=== PATIENT | female | born 1935 | race Caucasian/White ===

== ENCOUNTER 2017-05-16 18:09 | Inpatient (IN) | payer OTHER ==
--- NOTE | 2017-05-16 18:16 | PDOC ---
Rapid Medical Evaluation Time Seen by Provider: 05/16/17 18:13 Medical Evaluation: Allergies Allergy/AdvReac Type Severity Reaction Status Date / Time Penicillins Allergy Verified 08/15/15 13:05 Apple juice Allergy Uncoded 08/15/15 13:05 05/16/17 18:13 I have performed a brief in-person evaluation of this patient. The patient presents with a chief complaint of: Sob w/ hypoxia last night. H/o COPD on oxygen (2 and 1/2 L) Pertinent physical exam findings:Well jorden in NAD w/ 87% on RA w/ yellow discharge to R eye w/ mild wheezing I have ordered the following:ekg/cxr/labs/duoneb The patient will proceed to the ED for further evaluation.
[2017-05-16 19:23] LABS: BASO % 0.9 % (0-2.0); EOS % 2.5 % (0-4.5); HEMATOCRIT 35.5 % (32.4-45.2); LYMPH % 18.2 % (8-40); MCH 20.2 pg (25.7-33.7); MCHC 30.9 g/dl (32.0-36.0); MEAN CELL VOLUME 65.4 fl (80-96); MEAN PLT VOLUME 8.7 fl (7.5-11.1); MONO % 9.2 % (3.8-10.2); NEUT % 69.2 % (42.8-82.8); PLATELET COUNT 310 K/MM3 (134-434); RBC 5.43 M/mm3 (3.60-5.2); RDW 18.3 % (11.6-15.6); WHITE BLOOD COUNT 6.2 K/mm3 (4.0-10.0)
[2017-05-16 19:42] LABS: ADD RBC MORPHOLOGY YES
[2017-05-16] MEDS ORDERED: FUROSEMIDE 100 MG/10 ML INJECTABLE VIAL IVPB ONE (20:22)
[2017-05-16 20:24] LABS: ANISOCYTOSIS 2+; MACROCYTOSIS 1+; TARGET CELLS 3+
[2017-05-16] MEDS ORDERED: FUROSEMIDE 40 MG/4 ML INJECTABLE VIAL ONE (20:25)
--- NOTE | 2017-05-16 20:40 | PDOC ---
History of Present Illness - History of Present Illness Initial Comments: 05/16/17 20:40 The patient is a 82 year old barbadian-speaking female, with a significant past medical history of CHF, COPD, on oxygen tank at home, cataracts who presents to the emergency department with SOB since yesterday. Patient states SOB is exacerbated upon conversing. Patient reports chronic COPD but is unaware on the cause. She denies h/o smoking. Patient reports associated nausea but denies vomiting. She also reports lower leg pain. She denies recent fevers, chills, headache or dizziness. She denies recent vomit , diarrhea or constipation. She denies recent dysuria, frequency, urgency or hematuria. She denies recent chest pain. Allergies: penicillins, apple juice Past surgical history: Cardiac stents. No h/o heart attack. Right knee replacement.Tonsillectomy. Social history: Nonsmoker. Denies EtOH use and recreational drug use. Primary Care Physician: Heena Seaman <Lizzie Bee - Last Filed: 05/16/17 20:40> <Kailey Newby - Last Filed: 05/16/17 23:02> - General Chief Complaint: Shortness of Breath Stated Complaint: S.O.B Time Seen by Provider: 05/16/17 18:13 Past History <Lizzie Bee - Last Filed: 05/16/17 20:40> - Past Medical History Anemia: No Asthma: No Cancer: No Cardiac Disorders: Yes (RI with stents) CVA: No COPD: Yes (COPD) CHF: No Dementia: No Diabetes: Yes GI Disorders: No Disorders: No HTN: Yes Hypercholesterolemia: No Liver Disease: No Seizures: Yes (?2014-LAST ONE) Thyroid Disease: No - Surgical History Cardiac Surgery: Yes (cardiac cath with stents) - Family Disease History Family Disease History: Diabetes: Mother - Immunization History Immunization Up to Date: Yes - Suicide/Smoking/Psychosocial Hx Smoking History: Never smoked Have you smoked in the past 12 months: No Information on smoking cessation initiated: No Hx Alcohol Use: No Drug/Substance Use Hx: No Substance Use Type: None Hx Substance Use Treatment: No <Kailey Newby - Last Filed: 05/16/17 23:02> - Past Medical History Allergies/Adverse Reactions: Allergies Allergy/AdvReac Type Severity Reaction Status Date / Time Penicillins Allergy Verified 05/16/17 18:19 Apple juice Allergy Uncoded 05/16/17 18:19 Home Medications: Ambulatory Orders Aspirin [Aspirin EC] 81 mg PO DAILY 11/09/13 Insulin Lispro [Humalog] 12 unit SQ TIDCM 03/02/14 Atorvastatin Ca [Lipitor] 40 mg PO HS #30 tablet 03/11/14 Clopidogrel Bisulfate [Plavix -] 75 mg PO DAILY #30 tablet 03/11/14 Metoprolol Succinate [Toprol XL -] 25 mg PO DAILY #30 tab.sr.24h 03/11/14 Pantoprazole Sodium [Protonix -] 20 mg PO DAILY #30 tablet.ec 03/11/14 Insulin (Levemir) [Levemir Flexpen -] 12 units SQ HS 05/16/17 Review of Systems - Review of Systems Comments:: 05/16/17 20:41 GENERAL/CONSTITUTIONAL: No fever or chills. No weakness. HEAD, EYES, EARS, NOSE AND THROAT: No change in vision. No ear pain or discharge. No sore throat. CARDIOVASCULAR: No chest pain. +shortness of breath. RESPIRATORY: No cough, wheezing, or hemoptysis. GASTROINTESTINAL: + nausea, no vomiting, diarrhea or constipation. GENITOURINARY: No dysuria, frequency, or change in urination. MUSCULOSKELETAL: + bilateral lower leg pain.No joint or muscle swelling or pain. No neck or back pain. SKIN: No rash NEUROLOGIC: No headache, vertigo, loss of consciousness, or change in strength/ sensation. ENDOCRINE: No increased thirst. No abnormal weight change. HEMATOLOGIC/LYMPHATIC: No anemia, easy bleeding, or history of blood clots. ALLERGIC/IMMUNOLOGIC: No hives or skin allergy. <Lizzie Bee - Last Filed: 05/16/17 20:40> *Physical Exam - Vital Signs Last Vital Signs Temp Pulse Resp BP Pulse Ox 98.3 F 69 22 165/72 98 05/16/17 18:16 05/16/17 20:31 05/16/17 20:31 05/16/17 20:31 05/16/17 20:34 - Physical Exam Comments: 05/16/17 20:41 GENERAL: Morbidly obese. Awake, alert, and fully oriented, in no acute distress HEAD: No signs of trauma EYES: PERRLA, EOMI, sclera anicteric, conjunctiva clear ENT: Auricles normal inspection, hearing grossly normal, nares patent, oropharynx clear without exudates. Moist mucosa NECK: Normal ROM, supple, no lymphadenopathy, JVD, or masses LUNGS: Bilateral pleural effusions on x-ray. Rales- left side greater than right. No wheezes, and no crackles HEART: Regular rate and rhythm, normal S1 and S2, no murmurs, rubs or gallops ABDOMEN: Soft, nontender, normoactive bowel sounds. No guarding, no rebound. No masses EXTREMITIES: Bilateral pitting edema. Lower leg tenderness to palpation. Normal range of motion. No clubbing or cyanosis. No cords, erythema. NEUROLOGICAL: Cranial nerves II through XII grossly intact. Normal speech, normal gait SKIN: Warm, Dry, normal turgor, no rashes or lesions noted. <Lizzie Bee - Last Filed: 05/16/17 20:40> - Vital Signs Last Vital Signs Temp Pulse Resp BP Pulse Ox 98.3 F 69 22 165/72 98 05/16/17 18:16 05/16/17 20:31 05/16/17 20:31 05/16/17 20:31 05/16/17 20:34 <Kailey Newby - Last Filed: 05/16/17 23:02> ED Treatment Course - LABORATORY CBC & Chemistry Diagram: 05/16/17 18:55 05/16/17 18:55 - ADDITIONAL ORDERS Additional order review: Laboratory Results 05/16/17 18:55 Sodium Cancelled Potassium Cancelled Chloride Cancelled Carbon Dioxide Cancelled Anion Gap Cancelled BUN Cancelled Creatinine Cancelled Creat Clearance w eGFR Cancelled Random Glucose Cancelled Calcium Cancelled Total Bilirubin Cancelled AST Cancelled ALT Cancelled Alkaline Phosphatase Cancelled Creatine Kinase Cancelled Troponin I Cancelled Total Protein Cancelled Albumin Cancelled 05/16/17 20:15 Influenza Types A,B Antigen (REESE) - Preliminary Nasopharyngeal Swab - Preliminary 05/16/17 18:55 RBC 5.43 H MCV 65.4 L MCHC 30.9 L RDW 18.3 H D MPV 8.7 Neutrophils % 69.2 Lymphocytes % 18.2 D Monocytes % 9.2 Eosinophils % 2.5 Basophils % 0.9 - Medications Given in the ED: ED Medications Discontinued Medications Generic Name Dose Route Start Last Admin Trade Name Freq PRN Reason Stop Dose Admin Furosemide 20 mg 05/16/17 20:22 05/16/17 20:31 Lasix Injection - IVPB 05/16/17 20:23 20 mg ONCE ONE Administration <Lizzie Bee - Last Filed: 05/16/17 20:40> - LABORATORY CBC & Chemistry Diagram: 05/16/17 18:55 05/16/17 20:45 - ADDITIONAL ORDERS Additional order review: Laboratory Results 05/16/17 18:55 Sodium Cancelled Potassium Cancelled Chloride Cancelled Carbon Dioxide Cancelled Anion Gap Cancelled BUN Cancelled Creatinine Cancelled Creat Clearance w eGFR Cancelled Random Glucose Cancelled Calcium Cancelled Total Bilirubin Cancelled AST Cancelled ALT Cancelled Alkaline Phosphatase Cancelled Creatine Kinase Cancelled Troponin I Cancelled Total Protein Cancelled Albumin Cancelled 05/16/17 18:55 RBC 5.43 H MCV 65.4 L MCHC 30.9 L RDW 18.3 H D MPV 8.7 Neutrophils % 69.2 Lymphocytes % 18.2 D Monocytes % 9.2 Eosinophils % 2.5 Basophils % 0.9 - Medications Given in the ED: ED Medications Discontinued Medications Generic Name Dose Route Start Last Admin Trade Name Freq PRN Reason Stop Dose Admin Furosemide 20 mg 05/16/17 20:22 05/16/17 20:31 Lasix Injection - IVPB 05/16/17 20:23 20 mg ONCE ONE Administration <Kailey Newby - Last Filed: 05/16/17 23:02> *DC/Admit/Observation/Transfer - Attestations Scribe Attestion: 05/16/17 20:41 Documentation prepared by Lizzie Bee, acting as medical services coordinator for Kailey Newby MD. <Lizzie Bee - Last Filed: 05/16/17 20:40> - Discharge Dispostion Admit: Yes <Kailey Newby - Last Filed: 05/16/17 23:02> Diagnosis at time of Disposition: Respiratory distress, CHF exacerbation, Shortness of breath, HTN (hypertension) - Discharge Dispostion Condition at time of disposition: Guarded
[2017-05-16 21:19] LABS: ANION GAP 0 (8-16); BILIRUBIN,TOTAL 1.6 mg/dL (0.2-1.0); BLOOD UREA NITROGEN 26 mg/dL (7-18); CALCIUM 8.1 mg/dL (8.5-10.1); CHLORIDE 97 mmol/L (98-107); CO2 38 mmol/L (21-32); CREATININE 1.1 mg/dL (0.55-1.02); GLUCOSE,RANDOM 225 mg/dL (74-106); POTASSIUM 5.3 mmol/L (3.5-5.1); SGOT/AST 14 U/L (15-37); SGPT/ALT 15 U/L (12-78); SODIUM 135 mmol/L (136-145); TOT PROT 8.1 g/dl (6.4-8.2)
[2017-05-16 21:21] LABS: ALK PHOS 81 U/L (45-117)
[2017-05-16] MEDS ORDERED: HEPARIN NA (PORCINE) 5,000 UNITS/ML 1ML VIAL SQ SCH (23:45)
[2017-05-16] MEDS ORDERED: HEPARIN NA (PORCINE) 5,000 UNITS/ML 1ML VIAL ONE (23:53)
--- NOTE | 2017-05-17 00:04 | HP ---
<Sreekanth Luciano - Last Filed: 05/17/17 00:51> CHIEF COMPLAINT: shortness of breath PCP: Dr. Mima Luu HISTORY OF PRESENT ILLNESS: Patient is an 82 year old female with a past medical history of DM, HTN, COPD exacerbation on home O2, CHF, and arthritis presents to the ED for shortness of breath for 2 days duration. Patient states that she has had exacerbations in the past where she wound up intubated. She was intubated a total of 3 times in the past. She normally uses 2.5L home O2 as needed, but for the last two days she has needed to use it consistently. She states that she is able to walk less than she normally does without getting short of breath, and she needs to prop herself up with 2 pillows in order to sleep. She denies ever having leg swelling in the past. 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 Denies chest pain, nausea, vomiting, diarrhea, headache, fevers, chills. ER course was notable for: (1) EKG: left axis deviation, RBBB, LVH, old inferior infarct, old anterior infarct (2) (-) flu swab (3) potassium 5.3, sodium 135 Recent Travel: unknown PAST MEDICAL HISTORY: COPD, CHF, arthritis, DM, HTN PAST SURGICAL HISTORY: unknown Social History: Smoking: never Alcohol: never Drugs: never Family History: Allergies Penicillins Allergy (Verified 05/16/17 18:19) Apple juice Allergy (Uncoded 05/16/17 18:19) HOME MEDICATIONS: Home Medications Medication Instructions Recorded Aspirin [Aspirin EC] 81 mg PO DAILY 11/09/13 Insulin Lispro [Humalog] 12 unit SQ TIDCM 03/02/14 Atorvastatin Ca [Lipitor] 40 mg PO HS #30 tablet 03/11/14 Clopidogrel Bisulfate [Plavix -] 75 mg PO DAILY #30 tablet 03/11/14 Metoprolol Succinate [Toprol XL -] 25 mg PO DAILY #30 tab.sr.24h 03/11/14 Pantoprazole Sodium [Protonix -] 20 mg PO DAILY #30 tablet.ec 03/11/14 Insulin (Levemir) [Levemir Flexpen 12 units SQ HS 05/16/17 -] REVIEW OF SYSTEMS CONSTITUTIONAL: Absent: fever, chills, diaphoresis, generalized weakness, malaise, loss of appetite, weight change HEENT: Absent: rhinorrhea, nasal congestion, throat pain, throat swelling, difficulty swallowing, mouth swelling, ear pain, eye pain, visual changes CARDIOVASCULAR: Absent: chest pain, syncope, palpitations, irregular heart rate, lightheadedness , peripheral edema RESPIRATORY: cough, shortness of breath, dyspnea with exertion, orthopnea, wheezing Absent: stridor, hemoptysis GASTROINTESTINAL: Absent: abdominal pain, abdominal distension, nausea, vomiting, diarrhea, constipation, melena, hematochezia GENITOURINARY: Absent: dysuria, frequency, urgency, hesitancy, hematuria, flank pain, genital pain MUSCULOSKELETAL: Absent: myalgia, arthralgia, joint swelling, back pain, neck pain SKIN: Absent: rash, itching, pallor HEMATOLOGIC/IMMUNOLOGIC: Absent: easy bleeding, easy bruising, lymphadenopathy, frequent infections ENDOCRINE: Absent: unexplained weight gain, unexplained weight loss, heat intolerance, cold intolerance NEUROLOGIC: Absent: headache, focal weakness or paresthesias, dizziness, unsteady gait, seizure, mental status changes, bladder or bowel incontinence PSYCHIATRIC: Absent: anxiety, depression, suicidal or homicidal ideation, hallucinations. PHYSICAL EXAMINATION Vital Signs - 24 hr 05/16/17 05/16/17 05/16/17 18:16 20:26 20:31 Temperature 98.3 F Pulse Rate 77 Pulse Rate [ 69 Apical] Respiratory 24 22 Rate Blood Pressure 153/68 Blood Pressure 165/72 [Left Arm] O2 Sat by Pulse 87 L 100 98 Oximetry (%) 05/16/17 05/16/17 05/16/17 20:34 22:22 23:26 Temperature Pulse Rate Pulse Rate [ 69 Apical] Respiratory 18 Rate Blood Pressure Blood Pressure 139/71 [Left Arm] O2 Sat by Pulse 98 100 100 Oximetry (%) GENERAL: Awake, alert, and fully oriented, in no acute distress, breathing on bipap HEAD: Normal with no signs of trauma. EYES: Pupils equal, round and reactive to light, extraocular movements intact, sclera anicteric, conjunctiva clear. No lid lag. EARS, NOSE, THROAT: Ears normal, nares patent, oropharynx clear without exudates. Moist mucous membranes. NECK: Normal range of motion, supple without lymphadenopathy, JVD, or masses. LUNGS: Breath sounds equal, bibasilar crackles heard bilaterally. No wheezes. No accessory muscle use. HEART: Regular rate and rhythm, normal S1 and S2, 3/6 systolic murmur noted on exam ABDOMEN: Obese, nontender, not distended, normoactive bowel sounds, no guarding , no rebound, no masses. No hepatomegaly or splenomegaly. MUSCULOSKELETAL: Normal range of motion at all joints. No bony deformities, mild tenderness to palpation of legs. No CVA tenderness. UPPER EXTREMITIES: 2+ pulses, warm, well-perfused. No cyanosis. No clubbing. No peripheral edema. LOWER EXTREMITIES: 2+ pulses, warm, well-perfused. No calf tenderness. 2+ pitting edema in bilateral extremities, peripheral pulses intact NEUROLOGICAL: Cranial nerves II-XII intact. Normal speech. Normal gait. PSYCHIATRIC: Cooperative. Good eye contact. Appropriate mood and affect. SKIN: Warm, dry, normal turgor, no rashes or lesions noted, normal capillary refill. Laboratory Results - last 24 hr 05/16/17 05/16/17 05/16/17 18:55 18:55 20:45 WBC 6.2 RBC 5.43 H Hgb 11.0 Hct 35.5 MCV 65.4 L MCH 20.2 L MCHC 30.9 L RDW 18.3 H D Plt Count 310 D MPV 8.7 Neutrophils % 69.2 Lymphocytes % 18.2 D Monocytes % 9.2 Eosinophils % 2.5 Basophils % 0.9 Hypochromia 2+ Polychromasia 1+ Basophilic Stippling 1+ Anisocytosis 2+ Microcytosis 2+ Macrocytosis 1+ Target Cells 3+ Sodium Cancelled 135 L Potassium Cancelled 5.3 H Chloride Cancelled 97 L Carbon Dioxide Cancelled 38 H Anion Gap Cancelled 0 L BUN Cancelled 26 H Creatinine Cancelled 1.1 H Creat Clearance w eGFR Cancelled 47.67 Random Glucose Cancelled 225 H Calcium Cancelled 8.1 L Total Bilirubin Cancelled 1.6 H D AST Cancelled 14 L ALT Cancelled 15 Alkaline Phosphatase Cancelled 81 Creatine Kinase Cancelled 86 Troponin I Cancelled 0.04 Total Protein Cancelled 8.1 Albumin Cancelled 3.0 L Current Medications Aspirin (Ecotrin -) 81 mg PO DAILY RYANN Atorvastatin Calcium (Lipitor -) 40 mg PO HS RYANN Clopidogrel Bisulfate (Plavix -) 75 mg PO DAILY RYANN Furosemide (Lasix Injection -) 40 mg IVPUSH BID@0600,1400 [facility] Heparin Sodium (Porcine) (Heparin -) 5,000 unit SQ TID [facility] Insulin Aspart (Novolog Vial Sliding Scale -) 0 vial SQ ACHS [facility] PRN Reason: Protocol Insulin Detemir (Levemir Vial) 12 units SQ HS [facility] Metoprolol Succinate (Toprol Xl -) 25 mg PO DAILY [facility] Pantoprazole Sodium (Protonix -) 20 mg PO DAILY [facility] ASSESSMENT/PLAN: 82 year old female with a past medical history of DM, HTN, arthritis is admitted to the hospital for the treatment of CHF exacerbation #CHF Exacerbation: likely due to clinical picture of crackles on exam, CXR results, b/l pitting edema, and hx of orthopnea/dyspnea on exertion, patient improved when evaluated by primary team -admit to telemetry -EKG similar to prior with NSR, LAD, RBBB -Order echocardiography -lasix 40 given in ED, continue lasix 40 BID starting in the AM -Bipap as needed -strict I's and O's -daily weights #Diabetes Mellitus: controlled -levemir 12 at night -insulin sliding scale coverage #Hypertension: not an acute issue -continue home metoprolol 25mg PO QD #Coronary artery disease with hx of Stents: not an acute issue -continue aspirin 81mg and clopidogrel 75 PO QD -Continue atorvostatin 40mg PO #FEN -No standing fluids, hold due to fluid overload -Replete lytes as necessary in AM -Sodium controlled, diabetic diet #Prophylaxis -heparin 5000 subq TID -protonix, will ask why she is on it #Disposition: Admit to telemetry for monitoring Full code Sreekanth Luciano, PGY1 Visit type - Emergency Visit Emergency Visit: Yes ED Registration Date: 05/16/17 Care time: The patient presented to the Emergency Department on the above date and was hospitalized for further evaluation of their emergent condition. - New Patient This patient is new to me today: Yes Date on this admission: 05/17/17 - Critical Care Critical Care patient: No <Dung Sigala - Last Filed: 05/17/17 04:59> CHIEF COMPLAINT: PCP: HISTORY OF PRESENT ILLNESS: ER course was notable for: (1) (2) (3) Recent Travel: PAST MEDICAL HISTORY: PAST SURGICAL HISTORY: Social History: Smoking: Alcohol: Drugs: Family History: Allergies Penicillins Allergy (Verified 05/16/17 18:19) Apple juice Allergy (Uncoded 05/16/17 18:19) HOME MEDICATIONS: Home Medications Medication Instructions Recorded RX: Aspirin [Aspirin EC] 81 mg PO DAILY 11/09/13 RX: Insulin Lispro [Humalog] 12 unit SQ TIDCM 03/02/14 RX: Atorvastatin Ca [Lipitor] 40 mg PO HS #30 tablet 03/11/14 RX: Clopidogrel Bisulfate [Plavix 75 mg PO DAILY #30 tablet 03/11/14 -] RX: Metoprolol Succinate [Toprol 25 mg PO DAILY #30 tab.sr.24h 03/11/14 XL -] RX: Pantoprazole Sodium [Protonix 20 mg PO DAILY #30 tablet.ec 03/11/14 -] RX: Insulin (Levemir) [Levemir 12 units SQ HS 05/16/17 Flexpen -] REVIEW OF SYSTEMS CONSTITUTIONAL: Absent: fever, chills, diaphoresis, generalized weakness, malaise, loss of appetite, weight change HEENT: Absent: rhinorrhea, nasal congestion, throat pain, throat swelling, difficulty swallowing, mouth swelling, ear pain, eye pain, visual changes CARDIOVASCULAR: Absent: chest pain, syncope, palpitations, irregular heart rate, lightheadedness , peripheral edema RESPIRATORY: Absent: cough, shortness of breath, dyspnea with exertion, orthopnea, wheezing, stridor, hemoptysis GASTROINTESTINAL: Absent: abdominal pain, abdominal distension, nausea, vomiting, diarrhea, constipation, melena, hematochezia GENITOURINARY: Absent: dysuria, frequency, urgency, hesitancy, hematuria, flank pain, genital pain MUSCULOSKELETAL: Absent: myalgia, arthralgia, joint swelling, back pain, neck pain SKIN: Absent: rash, itching, pallor HEMATOLOGIC/IMMUNOLOGIC: Absent: easy bleeding, easy bruising, lymphadenopathy, frequent infections ENDOCRINE: Absent: unexplained weight gain, unexplained weight loss, heat intolerance, cold intolerance NEUROLOGIC: Absent: headache, focal weakness or paresthesias, dizziness, unsteady gait, seizure, mental status changes, bladder or bowel incontinence PSYCHIATRIC: Absent: anxiety, depression, suicidal or homicidal ideation, hallucinations. PHYSICAL EXAMINATION Vital Signs - 24 hr 05/16/17 05/16/17 05/16/17 18:16 20:26 20:31 Temperature 98.3 F Pulse Rate 77 Pulse Rate [ 69 Apical] Respiratory 24 22 Rate Blood Pressure 153/68 Blood Pressure 165/72 [Left Arm] O2 Sat by Pulse 87 L 100 98 Oximetry (%) 05/16/17 05/16/17 05/16/17 20:34 22:22 23:26 Temperature Pulse Rate Pulse Rate [ 69 Apical] Respiratory 18 Rate Blood Pressure Blood Pressure 139/71 [Left Arm] O2 Sat by Pulse 98 100 100 Oximetry (%) 05/17/17 05/17/17 05/17/17 02:26 03:37 04:02 Temperature Pulse Rate Pulse Rate [ 68 Apical] Respiratory 14 Rate Blood Pressure Blood Pressure 134/60 [Left Arm] O2 Sat by Pulse 98 96 96 Oximetry (%) GENERAL: Awake, alert, and fully oriented, in no acute distress. HEAD: Normal with no signs of trauma. EYES: Pupils equal, round and reactive to light, extraocular movements intact, sclera anicteric, conjunctiva clear. No lid lag. EARS, NOSE, THROAT: Ears normal, nares patent, oropharynx clear without exudates. Moist mucous membranes. NECK: Normal range of motion, supple without lymphadenopathy, JVD, or masses. LUNGS: Breath sounds equal, clear to auscultation bilaterally. No wheezes, and no crackles. No accessory muscle use. HEART: Regular rate and rhythm, normal S1 and S2 without murmur, rub or gallop. ABDOMEN: Soft, nontender, not distended, normoactive bowel sounds, no guarding, no rebound, no masses. No hepatomegaly or splenomegaly. MUSCULOSKELETAL: Normal range of motion at all joints. No bony deformities or tenderness. No CVA tenderness. UPPER EXTREMITIES: 2+ pulses, warm, well-perfused. No cyanosis. No clubbing. No peripheral edema. LOWER EXTREMITIES: 2+ pulses, warm, well-perfused. No calf tenderness. No peripheral edema. NEUROLOGICAL: Cranial nerves II-XII intact. Normal speech. Normal gait. PSYCHIATRIC: Cooperative. Good eye contact. Appropriate mood and affect. SKIN: Warm, dry, normal turgor, no rashes or lesions noted, normal capillary refill. Laboratory Results - last 24 hr 05/16/17 05/16/17 05/16/17 18:55 18:55 20:45 WBC 6.2 RBC 5.43 H Hgb 11.0 Hct 35.5 MCV 65.4 L MCH 20.2 L MCHC 30.9 L RDW 18.3 H D Plt Count 310 D MPV 8.7 Neutrophils % 69.2 Lymphocytes % 18.2 D Monocytes % 9.2 Eosinophils % 2.5 Basophils % 0.9 Hypochromia 2+ Polychromasia 1+ Basophilic Stippling 1+ Anisocytosis 2+ Microcytosis 2+ Macrocytosis 1+ Target Cells 3+ Sodium Cancelled 135 L Potassium Cancelled 5.3 H Chloride Cancelled 97 L Carbon Dioxide Cancelled 38 H Anion Gap Cancelled 0 L BUN Cancelled 26 H Creatinine Cancelled 1.1 H Creat Clearance w eGFR Cancelled 47.67 Random Glucose Cancelled 225 H Calcium Cancelled 8.1 L Total Bilirubin Cancelled 1.6 H D AST Cancelled 14 L ALT Cancelled 15 Alkaline Phosphatase Cancelled 81 Creatine Kinase Cancelled 86 Troponin I Cancelled 0.04 Total Protein Cancelled 8.1 Albumin Cancelled 3.0 L ASSESSMENT/PLAN: COPD exacerbation - Albuterol nebulize q6hrs prn - prednisone 40mg PO - ipratropium bromide nebulization q6hrs prn - if the patient is having fever we can initiate antibiotcs
--- NOTE | 2017-05-17 04:54 | PN ---
Teaching Attending Note Name of Resident: Sreekanth Luciano ATTENDING PHYSICIAN STATEMENT I saw and evaluated the patient. I reviewed the resident's note and discussed the case with the resident. I agree with the resident's findings and plan as documented. SUBJECTIVE: OBJECTIVE: ASSESSMENT AND PLAN: 82 year old female with a past medical history of DM, HTN, arthritis is admitted to the hospital for the treatment of CHF exacerbation vs COPD exacerbation #CHF Exacerbation: likely due to clinical picture of crackles on exam, CXR results, b/l pitting edema, and hx of orthopnea/dyspnea on exertion, patient improved when evaluated by primary team -admit to telemetry -EKG similar to prior with NSR, LAD, RBBB -Order echocardiography -furosemide 40 BID starting in the AM - reassess the need for the medication -Bipap as needed - obtain BNP in morning labs COPD exacerbation: - nebulize albuterol - nebulize ipratropium bromide - prednisone 40mg po - if patient spikes a fever can start on antibiotics #Diabetes Mellitus: controlled -levemir 12 at night -insulin sliding scale coverage #Hypertension: not an acute issue -continue home metoprolol 25mg PO QD #Coronary artery disease with hx of Stents: not an acute issue -continue aspirin 81mg and clopidogrel 75 PO QD -Continue atorvostatin 40mg PO
[2017-05-17] MEDS ORDERED: ALBUTEROL SO4 0.083% IH SOL 2.5 MG/3 ML VIAL.NEB. NEB PRN (04:56)
[2017-05-17] MEDS ORDERED: FUROSEMIDE 40 MG/4 ML INJECTABLE VIAL ONE (05:31)
[2017-05-17] MEDS ORDERED: HEPARIN NA (PORCINE) 5,000 UNITS/ML 1ML VIAL ONE (05:31)
[2017-05-17] MEDS: FUROSEMIDE 40 MG/4 ML INJECTABLE VIAL IVPUSH SCH ×2 (05:41→13:32)
[2017-05-17] MEDS: HEPARIN NA (PORCINE) 5,000 UNITS/ML 1ML VIAL SQ SCH ×3 (05:41→22:32)
[2017-05-17] MEDS ORDERED: INSULIN (NOVOLOG) ASPART 100 UNITS/ML 10ML VIAL ONE (05:57)
[2017-05-17] MEDS: INSULIN SLIDING SCALE (NOVOLOG) 1 VIAL SQ SCH ×4 (06:15→22:32)
[2017-05-17 07:30] LABS: INR 1.06 (0.82-1.09)
[2017-05-17 07:58] LABS: HEMATOCRIT 35.9 % (32.4-45.2); HEMOGLOBIN 10.8 GM/dL (10.7-15.3); MCHC 30.2 g/dl (32.0-36.0); MEAN CELL VOLUME 65.7 fl (80-96); PLATELET COUNT 317 K/MM3 (134-434); RBC 5.46 M/mm3 (3.60-5.2); WHITE BLOOD COUNT 5.6 K/mm3 (4.0-10.0)
[2017-05-17 08:01] LABS: ANION GAP 6 (8-16); CHLORIDE 97 mmol/L (98-107); CO2 33 mmol/L (21-32); GLUCOSE,RANDOM 227 mg/dL (74-106); MAGNESIUM 2.1 mg/dL (1.8-2.4); PHOSPHOROUS 2.8 mg/dL (2.5-4.9); POTASSIUM 5.1 mmol/L (3.5-5.1); SODIUM 136 mmol/L (136-145)
[2017-05-17 08:04] LABS: ADD RBC MORPHOLOGY YES; MCH 19.8 pg (25.7-33.7)
[2017-05-17 08:17] LABS: BLOOD UREA NITROGEN 25 mg/dL (7-18); CALCIUM 8.3 mg/dL (8.5-10.1); N-TERMINAL BNP 7615.77 pg/ml (5-450)
[2017-05-17 09:20] LABS: ANISOCYTOSIS 2+; MACROCYTOSIS 0
[2017-05-17] MEDS: ASPIRIN COATED 81 MG TABLET.EC PO SCH (10:02)
[2017-05-17] MEDS: PANTOPRAZOLE 20 MG TABLET (FP) PO SCH (10:02)
[2017-05-17] MEDS: predniSONE 20 MG TABLET (UD) PO SCH (10:02)
[2017-05-17] MEDS: CLOPIDOGREL BISULFATE 75 MG TABLET (FP) PO SCH (10:02)
[2017-05-17] MEDS: METOPROLOL SUCCINATE 25 MG TAB.SR.24H (FP) PO SCH (10:03)
--- NOTE | 2017-05-17 10:14 | HOSP ---
Subjective - Review of Symptoms Events since last encounter: Vital Signs Temperature 97.7 F 05/17/17 07:25 Pulse Rate 66 05/17/17 07:25 Respiratory Rate 21 05/17/17 07:25 Blood Pressure 129/60 05/17/17 07:25 O2 Sat by Pulse Oximetry (%) 98 05/17/17 07:25 CBCD WBC 5.6 K/mm3 (4.0-10.0) 05/17/17 05:45 RBC 5.46 M/mm3 (3.60-5.2) H 05/17/17 05:45 Hgb 10.8 GM/dL (10.7-15.3) 05/17/17 05:45 Hct 35.9 % (32.4-45.2) 05/17/17 05:45 MCV 65.7 fl (80-96) L 05/17/17 05:45 MCHC 30.2 g/dl (32.0-36.0) L 05/17/17 05:45 RDW 18.0 % (11.6-15.6) H 05/17/17 05:45 Plt Count 317 K/MM3 (134-434) 05/17/17 05:45 MPV 8.0 fl (7.5-11.1) 05/17/17 05:45 CMP Sodium 136 mmol/L (136-145) 05/17/17 05:45 Potassium 5.1 mmol/L (3.5-5.1) 05/17/17 05:45 Chloride 97 mmol/L (98-107) L 05/17/17 05:45 Carbon Dioxide 33 mmol/L (21-32) H 05/17/17 05:45 Anion Gap 6 (8-16) L 05/17/17 05:45 BUN 25 mg/dL (7-18) H 05/17/17 05:45 Creatinine 1.0 mg/dL (0.55-1.02) 05/17/17 05:45 Creat Clearance w eGFR 47.67 (>60) 05/16/17 20:45 Random Glucose 227 mg/dL (74-106) H 05/17/17 05:45 Calcium 8.3 mg/dL (8.5-10.1) L 05/17/17 05:45 Total Bilirubin 1.6 mg/dL (0.2-1.0) H D 05/16/17 20:45 AST 14 U/L (15-37) L 05/16/17 20:45 ALT 15 U/L (12-78) 05/16/17 20:45 Alkaline Phosphatase 81 U/L (45-117) 05/16/17 20:45 Total Protein 8.1 g/dl (6.4-8.2) 05/16/17 20:45 Albumin 3.0 g/dl (3.4-5.0) L 05/16/17 20:45 CARDIAC ENZYMES Creatine Kinase 86 IU/L (26-192) 05/16/17 20:45 Troponin I 0.04 ng/ml (0.00-0.05) 05/16/17 20:45 Current Medications Generic Name Dose Route Start Last Admin Trade Name Freq PRN Reason Stop Dose Admin Albuterol Sulfate 1 amp 05/17/17 04:56 Ventolin 0.083% Nebulizer Soln - NEB Q6H PRN SHORT OF BREATH/WHEEZING Aspirin 81 mg 05/17/17 10:00 05/17/17 10:02 Ecotrin - PO 81 mg DAILY RYANN Administration Atorvastatin Calcium 40 mg 05/17/17 22:00 Lipitor - PO HS RYANN Clopidogrel Bisulfate 75 mg 05/17/17 10:00 05/17/17 10:02 Plavix - PO 75 mg DAILY RYANN Administration Furosemide 40 mg 05/17/17 06:00 05/17/17 05:41 Lasix Injection - IVPUSH 40 mg BID@0600,1400 RYANN Administration Heparin Sodium (Porcine) 5,000 unit 05/17/17 06:00 05/17/17 05:41 Heparin - SQ 5,000 unit TID RYANN Administration Insulin Aspart 0 vial 05/17/17 07:00 05/17/17 06:15 Novolog Vial Sliding Scale - SQ 6 units ACHS RYANN Administration Protocol Insulin Detemir 12 units 05/17/17 22:00 Levemir Vial SQ HS RYANN Ipratropium [place] 1 amp 05/17/17 04:56 Atrovent 0.02% Nebulizer - NEB Q6H PRN WHEEZING Metoprolol Succinate 25 mg 05/17/17 10:00 05/17/17 10:03 Toprol Xl - PO 25 mg DAILY RYANN Administration Pantoprazole Sodium 20 mg 05/17/17 10:00 05/17/17 10:02 Protonix - PO 20 mg DAILY RYANN Administration Prednisone 40 mg 05/17/17 10:00 05/17/17 10:02 Deltasone - PO 40 mg DAILY RYANN Administration Home Medications Medication Instructions Recorded Aspirin [Aspirin EC] 81 mg PO DAILY 11/09/13 Insulin Lispro [Humalog] 12 unit SQ TIDCM 03/02/14 Atorvastatin Ca [Lipitor] 40 mg PO HS #30 tablet 03/11/14 Clopidogrel Bisulfate [Plavix -] 75 mg PO DAILY #30 tablet 03/11/14 Metoprolol Succinate [Toprol XL -] 25 mg PO DAILY #30 tab.sr.24h 03/11/14 Pantoprazole Sodium [Protonix -] 20 mg PO DAILY #30 tablet.ec 03/11/14 Insulin (Levemir) [Levemir Flexpen 12 units SQ HS 05/16/17 -] A/P: 82 year old female with a past medical history of DM, HTN, arthritis is admitted to the hospital for the treatment of CHF exacerbation vs COPD exacerbation #Acute on chronic diastolic CHF Exacerbation: likely due to clinical picture of crackles on exam, CXR results, b/l pitting edema, and hx of orthopnea/dyspnea on -EKG similar to prior with NSR, LAD, RBBB , follow echocardiography, furosemide 40 BID, Bipap as needed # Acute COPD exacerbation:continue nebs #Diabetes Mellitus: controlled, continue SS, continue Levemir #Hypertension: continue home metoprolol 25mg PO QD #Coronary artery disease with hx of Stents:continue aspirin 81mg and clopidogrel 75 PO QD, and LIpitor DVT Px: Heparin Physical Examination Vital Signs: Vital Signs Temperature 97.7 F 05/17/17 07:25 Pulse Rate 66 05/17/17 07:25 Respiratory Rate 21 05/17/17 07:25 Blood Pressure 129/60 05/17/17 07:25 O2 Sat by Pulse Oximetry (%) 98 05/17/17 07:25 Labs: CBC, BMP 05/17/17 05:45 05/17/17 05:45
[2017-05-17 10:17] VITALS: BMI 38.6
[2017-05-17] MEDS: IPRATROPIUM BR 0.02% 0.5 MG/2.5 ML VIAL.NEB. NEB PRN (11:45)
--- NOTE | 2017-05-17 18:27 | CON.CARD ---
Consult Consult Specialty:: Cardiology Referred by:: Hospitalist Medicine Reason for Consultation:: CHF - History of Present Illness Chief Complaint: Dyspnea History of Present Illness: Patient is an 82 year old female with a past medical history of DM, HTN, COPD on home O2, CHF, CAD, s/p YURIY PCI of mLAD and Diag--residual prox LCx lesion 2013 and arthritis presents to the ED for shortness of breath for 2 days duration. Patient states that she has had COPD exacerbations in the past where she wound up intubated for total of 3 times in the past. She normally uses 2.5L home O2 as needed, but for the last two days she has needed to use it consistently. She states that she is able to walk less than she normally does without getting short of breath, and she needs to prop herself up with 2 pillows in order to sleep. She denies ever having leg swelling in the past. 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 Denies chest pain, near or true syncope, palpitations, PND. Daughter reportd medication and diet compliance. 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) Cardio/Vascular: Yes: CAD, CHF, HTN, VA Gastrointestinal: Yes: GERD, Hiatal Hernia ...: No Endocrine: Yes: Hypothyroidism - Alcohol/Substance Use Hx Alcohol Use: No - Smoking History Smoking history: Never smoked Have you smoked in the past 12 months: No - Social History ADL: Family Assistance History of Recent Travel: Yes (arrived from [place] 2 months ago) Home Medications - Allergies Allergies/Adverse Reactions: Allergies Allergy/AdvReac Type Severity Reaction Status Date / Time Penicillins Allergy Verified 05/16/17 18:19 Apple juice Allergy Uncoded 05/16/17 18:19 - Home Medications Home Medications: Ambulatory Orders Aspirin [Aspirin EC] 81 mg PO DAILY 11/09/13 Insulin Lispro [Humalog] 12 unit SQ TIDCM 03/02/14 Atorvastatin Ca [Lipitor] 40 mg PO HS #30 tablet 03/11/14 Clopidogrel Bisulfate [Plavix -] 75 mg PO DAILY #30 tablet 03/11/14 Metoprolol Succinate [Toprol XL -] 25 mg PO DAILY #30 tab.sr.24h 03/11/14 Pantoprazole Sodium [Protonix -] 20 mg PO DAILY #30 tablet.ec 03/11/14 Insulin (Levemir) [Levemir Flexpen -] 12 units SQ HS 05/16/17 Review of Systems - Review of Systems Respiratory: reports: Exercise Intolerance, Orthopnea, SOB on Exertion Vital Signs: Vital Signs Temperature 98.2 F 05/17/17 15:01 Pulse Rate 73 05/17/17 15:01 Respiratory Rate 18 05/17/17 15:01 Blood Pressure 139/70 05/17/17 15:01 O2 Sat by Pulse Oximetry (%) 97 05/17/17 11:45 Constitutional: Yes: No Distress, Calm Neck: Yes: Supple Respiratory: Yes: Regular, Cough, Diminished, On Nasal O2, Orthopnea Gastrointestinal: Yes: Normal Bowel Sounds, Soft, Abdomen, Obese Cardiovascular: Yes: Regular Rate and Rhythm JVD: No Carotid Bruit: No Heart Sounds: Yes: S1, S2 Murmur: Yes: Systolic Murmur, Grade 1 Edema: Yes Edema: LLE: Trace, RLE: Trace - Other Data Labs, Other Data: CBC, BMP 05/17/17 05:45 05/17/17 05:45 INR, PTT INR 1.06 (0.82-1.09) 05/17/17 05:45 Troponin, BNP 05/16/17 05/16/17 05/17/17 18:55 20:45 05:45 Troponin I Cancelled 0.04 B-Natriuretic Peptide 7615.77 H Troponin, BNP 05/16/17 05/16/17 05/17/17 18:55 20:45 05:45 Troponin I Cancelled 0.04 B-Natriuretic Peptide 7615.77 H Not available for my review, EKG similar to prior with NSR, LAD, RBBB by report Ejection Fraction %: LVEF > or = 40 % Imaging - Results Chest X-ray: Report Reviewed (Congestion with bilateral effusions) Problem List - Problems (1) Acute on chronic diastolic (congestive) heart failure Code(s): I50.33 - ACUTE ON CHRONIC DIASTOLIC (CONGESTIVE) HEART FAILURE (2) [id number] kidney injury Code(s): N17.9 - ACUTE KIDNEY FAILURE, UNSPECIFIED; N18.9 - CHRONIC KIDNEY DISEASE, UNSPECIFIED Qualifiers: Chronic kidney disease stage: stage 2 (mild) (3) History of coronary artery stent placement Code(s): Z95.5 - PRESENCE OF CORONARY ANGIOPLASTY IMPLANT AND GRAFT (4) 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 infarction Code(s): I25.2 - OLD MYOCARDIAL INFARCTION (5) CHF exacerbation Code(s): I50.9 - HEART FAILURE, UNSPECIFIED Qualifiers: Congestive heart failure type: combined Qualified Code(s): I50.43 - Acute on chronic combined systolic (congestive) and diastolic (congestive) heart failure (6) HTN (hypertension) Code(s): I10 - ESSENTIAL (PRIMARY) HYPERTENSION Qualifiers: Hypertension type: essential hypertension Qualified Code(s): I10 - Essential (primary) hypertension (7) Shortness of breath Code(s): R06.02 - SHORTNESS OF BREATH (8) ASHD (arteriosclerotic heart disease) Code(s): I25.10 - ATHSCL HEART DISEASE OF [place] CORONARY ARTERY W/O ANG PCTRS (9) Chronic hypercapnic respiratory failure Code(s): J96.12 - CHRONIC RESPIRATORY FAILURE WITH HYPERCAPNIA (10) Diabetes mellitus Code(s): E11.9 - TYPE 2 DIABETES MELLITUS WITHOUT COMPLICATIONS Qualifiers: Diabetes mellitus type: type 2 (11) Hyperkalemia Code(s): E87.5 - HYPERKALEMIA (12) Hyperlipidemia Code(s): E78.5 - HYPERLIPIDEMIA, UNSPECIFIED Qualifiers: Hyperlipidemia type: pure hypercholesterolemia Qualified Code(s): E78.00 - Pure hypercholesterolemia, unspecified; E78.0 - Pure hypercholesterolemia Assessment/Plan 10/2013 rotational atherectomy and YURIY PCI of mLAD and Diag, residual prox LCx 90-95% calcific, 30-50% LM disease stable, no angina Echo 10/2013: mildly reduced LVF, apical severe AK, anterior mod HK, mild to mod MR, mild to mod RE, RVSP 50-60 (likely LAD infarct) 1. Acute on chronic diastolic failure 2. CAD s/p VA, PCI (stent), angina pectoris 3. 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 Type 2 DM 5. 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 Hyperkalemia improving 8. Acute on CKD improving P:1 IV diuresis with monitor diuretic response, renal fxn and electrolytes 2. Echocardiogram to assess ventricular and valve fxn, check TSH, lipid panel, Ha1c 3. Bipap as needed, O2, BD, oral steroids with GI protection 4. Continue ASA 81 daily, Plavix 75 daily, Lipitor 40 nightly, Toprol XL 25 daily, start ARB with lower tendency for hyperkalemia than SKYLER-I once hyperkalemia and acute on CKD resolves 5. Thank you for consultative opportunty
[2017-05-17] MEDS: ATORVASTATIN CA 40 MG TABLET (FP) PO SCH (22:32)
[2017-05-17] MEDS: INSULIN DETEMIR 100 UNITS/ML MDV SQ SCH (22:32)
[2017-05-18] MEDS: FUROSEMIDE 40 MG/4 ML INJECTABLE VIAL IVPUSH SCH (06:53)
[2017-05-18] MEDS: INSULIN SLIDING SCALE (NOVOLOG) 1 VIAL SQ SCH ×4 (06:53→23:01)
[2017-05-18] MEDS: HEPARIN NA (PORCINE) 5,000 UNITS/ML 1ML VIAL SQ SCH ×3 (06:53→23:01)
[2017-05-18] MEDS: IPRATROPIUM BR 0.02% 0.5 MG/2.5 ML VIAL.NEB. NEB PRN (08:30)
[2017-05-18] MEDS: CLOPIDOGREL BISULFATE 75 MG TABLET (FP) PO SCH (09:15)
[2017-05-18] MEDS: predniSONE 20 MG TABLET (UD) PO SCH (09:15)
[2017-05-18] MEDS: METOPROLOL SUCCINATE 25 MG TAB.SR.24H (FP) PO SCH (09:15)
[2017-05-18] MEDS: ASPIRIN COATED 81 MG TABLET.EC PO SCH (09:15)
[2017-05-18] MEDS: PANTOPRAZOLE 20 MG TABLET (FP) PO SCH (09:15)
--- NOTE | 2017-05-18 11:20 | PN ---
Progress Note, Physician History of Present Illness: Dyspnea and orthopnea resolving with diuresis, denies chest pain. PMD: Heena Seaman MD - Current Medication List Current Medications: Active Medications Albuterol Sulfate (Ventolin 0.083% Nebulizer Soln -) 1 amp NEB Q6H PRN PRN Reason: SHORT OF BREATH/WHEEZING Last Admin: 05/17/17 11:45 Dose: 1 amp Aspirin (Ecotrin -) 81 mg PO DAILY [facility] Last Admin: 05/18/17 09:15 Dose: 81 mg Atorvastatin Calcium (Lipitor -) 40 mg PO HS [facility] Last Admin: 05/17/17 22:32 Dose: 40 mg Clopidogrel Bisulfate (Plavix -) 75 mg PO DAILY [facility] Last Admin: 05/18/17 09:15 Dose: 75 mg Furosemide (Lasix Injection -) 40 mg IVPUSH BID@0600,1400 [facility] Last Admin: 05/18/17 06:53 Dose: 40 mg Heparin Sodium (Porcine) (Heparin -) 5,000 unit SQ TID [facility] Last Admin: 05/18/17 06:53 Dose: 5,000 unit Insulin Aspart (Novolog Vial Sliding Scale -) 0 vial SQ ACHS [facility] PRN Reason: Protocol Last Admin: 05/18/17 11:15 Dose: 6 units Insulin Detemir (Levemir Vial) 12 units SQ HS [facility] Last Admin: 05/17/17 22:32 Dose: 12 units Ipratropium [place] (Atrovent 0.02% Nebulizer -) 1 amp NEB Q6H PRN PRN Reason: WHEEZING Last Admin: 05/18/17 08:30 Dose: 1 amp Metoprolol Succinate (Toprol Xl -) 25 mg PO DAILY [facility] Last Admin: 05/18/17 09:15 Dose: 25 mg Pantoprazole Sodium (Protonix -) 20 mg PO DAILY [facility] Last Admin: 05/18/17 09:15 Dose: 20 mg Prednisone (Deltasone -) 40 mg PO DAILY [facility] Last Admin: 05/18/17 09:15 Dose: 40 mg - Objective Vital Signs: Vital Signs Temperature 97.3 F L 05/18/17 07:53 Pulse Rate 62 05/18/17 07:53 Respiratory Rate 20 05/18/17 07:54 Blood Pressure 123/54 05/18/17 07:53 O2 Sat by Pulse Oximetry (%) 95 05/18/17 10:58 Constitutional: Yes: No Distress, Calm Neck: Yes: Supple Cardiovascular: Yes: Regular Rate and Rhythm Respiratory: Yes: Regular, Diminished, On Nasal O2 Gastrointestinal: Yes: Normal Bowel Sounds, Soft, Abdomen, Obese Edema: No Labs: CBC, BMP 05/17/17 05:45 05/17/17 05:45 INR, PTT INR 1.06 (0.82-1.09) 05/17/17 05:45 - ....Imaging EKG: Report Reviewed (Tele: NSR occ [facility]) Problem List - Problems (1) Acute on chronic diastolic (congestive) heart failure Code(s): I50.33 - ACUTE ON CHRONIC DIASTOLIC (CONGESTIVE) HEART FAILURE (2) Egmuc-sd-fxbtzzq kidney injury Code(s): N17.9 - ACUTE KIDNEY FAILURE, UNSPECIFIED; N18.9 - CHRONIC KIDNEY DISEASE, UNSPECIFIED Qualifiers: Chronic kidney disease stage: stage 2 (mild) (3) History of coronary artery stent placement Code(s): Z95.5 - PRESENCE OF CORONARY ANGIOPLASTY IMPLANT AND GRAFT (4) 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 infarction Code(s): I25.2 - OLD MYOCARDIAL INFARCTION (5) CHF exacerbation Code(s): I50.9 - HEART FAILURE, UNSPECIFIED Qualifiers: Congestive heart failure type: combined Qualified Code(s): I50.43 - Acute on chronic combined systolic (congestive) and diastolic (congestive) heart failure (6) HTN (hypertension) Code(s): I10 - ESSENTIAL (PRIMARY) HYPERTENSION Qualifiers: Hypertension type: essential hypertension Qualified Code(s): I10 - Essential (primary) hypertension (7) Shortness of breath Code(s): R06.02 - SHORTNESS OF BREATH (8) ASHD (arteriosclerotic heart disease) Code(s): I25.10 - ATHSCL HEART DISEASE OF [place] CORONARY ARTERY W/O ANG PCTRS (9) Chronic hypercapnic respiratory failure Code(s): J96.12 - CHRONIC RESPIRATORY FAILURE WITH HYPERCAPNIA (10) Diabetes mellitus Code(s): E11.9 - TYPE 2 DIABETES MELLITUS WITHOUT COMPLICATIONS Qualifiers: Diabetes mellitus type: type 2 (11) Hyperkalemia Code(s): E87.5 - HYPERKALEMIA (12) Hyperlipidemia Code(s): E78.5 - HYPERLIPIDEMIA, UNSPECIFIED Qualifiers: Hyperlipidemia type: pure hypercholesterolemia Qualified Code(s): E78.00 - Pure hypercholesterolemia, unspecified; E78.0 - Pure hypercholesterolemia Assessment/Plan 10/2013 rotational atherectomy and YURIY PCI of mLAD and Diag, residual prox LCx 90-95% calcific, 30-50% LM disease stable, no angina Echo 10/2013: mildly reduced LVF, apical severe AK, anterior mod HK, mild to mod MR, mild to mod RE, RVSP 50-60 (likely LAD infarct) 1. Acute on chronic diastolic failure 2. CAD s/p [place], PCI (stent), angina pectoris 3. 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 Type 2 DM 5. 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 Hyperkalemia improving 8. Acute on CKD improving P:1 Decrease IV diuresis with monitor diuretic response, renal fxn and electrolytes 2. Echocardiogram to assess ventricular and valve fxn, check TSH, lipid panel, Ha1c 3. Bipap as needed, O2, BD, oral steroids with GI protection 4. Continue ASA 81 daily, Plavix 75 daily, Lipitor 40 nightly, Toprol XL 25 daily, start ARB with lower tendency for hyperkalemia than SKYLER-I once hyperkalemia and acute on CKD resolves 5. DVT and GI prophylaxis, encourage ambulation
--- NOTE | 2017-05-18 20:44 | PN ---
Progress Note (short form) - Note Progress Note: Vital Signs Temperature 98.8 F 05/18/17 17:00 Pulse Rate 60 05/18/17 17:00 Respiratory Rate 18 05/18/17 17:00 Blood Pressure 119/50 05/18/17 17:00 O2 Sat by Pulse Oximetry (%) 96 05/18/17 14:40 CBCD WBC 5.6 K/mm3 (4.0-10.0) 05/17/17 05:45 RBC 5.46 M/mm3 (3.60-5.2) H 05/17/17 05:45 Hgb 10.8 GM/dL (10.7-15.3) 05/17/17 05:45 Hct 35.9 % (32.4-45.2) 05/17/17 05:45 MCV 65.7 fl (80-96) L 05/17/17 05:45 MCHC 30.2 g/dl (32.0-36.0) L 05/17/17 05:45 RDW 18.0 % (11.6-15.6) H 05/17/17 05:45 Plt Count 317 K/MM3 (134-434) 05/17/17 05:45 MPV 8.0 fl (7.5-11.1) 05/17/17 05:45 CMP Sodium 136 mmol/L (136-145) 05/17/17 05:45 Potassium 5.1 mmol/L (3.5-5.1) 05/17/17 05:45 Chloride 97 mmol/L (98-107) L 05/17/17 05:45 Carbon Dioxide 33 mmol/L (21-32) H 05/17/17 05:45 Anion Gap 6 (8-16) L 05/17/17 05:45 BUN 25 mg/dL (7-18) H 05/17/17 05:45 Creatinine 1.0 mg/dL (0.55-1.02) 05/17/17 05:45 Creat Clearance w eGFR 47.67 (>60) 05/16/17 20:45 Random Glucose 227 mg/dL (74-106) H 05/17/17 05:45 Calcium 8.3 mg/dL (8.5-10.1) L 05/17/17 05:45 Total Bilirubin 1.6 mg/dL (0.2-1.0) H D 05/16/17 20:45 AST 14 U/L (15-37) L 05/16/17 20:45 ALT 15 U/L (12-78) 05/16/17 20:45 Alkaline Phosphatase 81 U/L (45-117) 05/16/17 20:45 Total Protein 8.1 g/dl (6.4-8.2) 05/16/17 20:45 Albumin 3.0 g/dl (3.4-5.0) L 05/16/17 20:45 CARDIAC ENZYMES Creatine Kinase 86 IU/L (26-192) 05/16/17 20:45 Troponin I 0.04 ng/ml (0.00-0.05) 05/16/17 20:45 Current Medications Generic Name Dose Route Start Last Admin Trade Name Freq PRN Reason Stop Dose Admin Albuterol Sulfate 1 amp 05/17/17 04:56 05/17/17 11:45 Ventolin 0.083% Nebulizer Soln - NEB 1 amp Q6H PRN Administration SHORT OF BREATH/WHEEZING Aspirin 81 mg 05/17/17 10:00 05/18/17 09:15 Ecotrin - PO 81 mg DAILY RYANN Administration Atorvastatin Calcium 40 mg 05/17/17 22:00 05/17/17 22:32 Lipitor - PO 40 mg HS RYANN Administration Clopidogrel Bisulfate 75 mg 05/17/17 10:00 05/18/17 09:15 Plavix - PO 75 mg DAILY RYANN Administration Furosemide 40 mg 05/19/17 10:00 Lasix Injection - IVPUSH DAILY [facility] Heparin Sodium (Porcine) 5,000 unit 05/17/17 06:00 05/18/17 13:57 Heparin - SQ 5,000 unit TID RYANN Administration Insulin Aspart 0 vial 05/17/17 07:00 05/18/17 17:14 Novolog Vial Sliding Scale - SQ 4 units ACHS RYANN Administration Protocol Insulin Detemir 12 units 05/17/17 22:00 05/17/17 22:32 Levemir Vial SQ 12 units HS RYANN Administration Ipratropium [place] 1 amp 05/17/17 04:56 05/18/17 08:30 Atrovent 0.02% Nebulizer - NEB 1 amp Q6H PRN Administration WHEEZING Metoprolol Succinate 25 mg 05/17/17 10:00 05/18/17 09:15 Toprol Xl - PO 25 mg DAILY RYANN Administration Pantoprazole Sodium 20 mg 05/17/17 10:00 05/18/17 09:15 Protonix - PO 20 mg DAILY RYANN Administration Prednisone 40 mg 05/17/17 10:00 05/18/17 09:15 Deltasone - PO 40 mg DAILY RYANN Administration Home Medications Medication Instructions Recorded Aspirin [Aspirin EC] 81 mg PO DAILY 11/09/13 Insulin Lispro [Humalog] 12 unit SQ TIDCM 03/02/14 Atorvastatin Ca [Lipitor] 40 mg PO HS #30 tablet 03/11/14 Clopidogrel Bisulfate [Plavix -] 75 mg PO DAILY #30 tablet 03/11/14 Metoprolol Succinate [Toprol XL -] 25 mg PO DAILY #30 tab.sr.24h 03/11/14 Pantoprazole Sodium [Protonix -] 20 mg PO DAILY #30 tablet.ec 03/11/14 Insulin (Levemir) [Levemir Flexpen 12 units SQ HS 05/16/17 -] A/P: 82 year old female with a past medical history of DM, HTN, arthritis is admitted to the hospital for the treatment of CHF exacerbation vs COPD exacerbation #Acute on chronic diastolic CHF Exacerbation: likely due to clinical picture of crackles on exam, CXR results, b/l pitting edema, and hx of orthopnea/dyspnea on -EKG similar to prior with NSR, LAD, RBBB , follow echocardiography, furosemide 40 BID, Bipap as needed # Acute COPD exacerbation:continue nebs #Diabetes Mellitus: controlled, continue SS, continue Levemir #Hypertension: continue home metoprolol 25mg PO QD #Coronary artery disease with hx of Stents:continue aspirin 81mg and clopidogrel 75 PO QD, and LIpitor DVT Px: Heparin
[2017-05-18] MEDS: ATORVASTATIN CA 40 MG TABLET (FP) PO SCH (23:00)
[2017-05-18] MEDS: INSULIN DETEMIR 100 UNITS/ML MDV SQ SCH (23:01)
[2017-05-19] MEDS: INSULIN SLIDING SCALE (NOVOLOG) 1 VIAL SQ SCH ×2 (06:38→11:17)
[2017-05-19] MEDS: HEPARIN NA (PORCINE) 5,000 UNITS/ML 1ML VIAL SQ SCH ×2 (06:39→14:07)
[2017-05-19] MEDS: PANTOPRAZOLE 20 MG TABLET (FP) PO SCH (09:22)
[2017-05-19] MEDS: METOPROLOL SUCCINATE 25 MG TAB.SR.24H (FP) PO SCH (09:22)
[2017-05-19] MEDS: CLOPIDOGREL BISULFATE 75 MG TABLET (FP) PO SCH (09:22)
[2017-05-19] MEDS: predniSONE 20 MG TABLET (UD) PO SCH (09:22)
[2017-05-19] MEDS: ASPIRIN COATED 81 MG TABLET.EC PO SCH (09:22)
[2017-05-19] MEDS ORDERED: FUROSEMIDE 40 MG/4 ML INJECTABLE VIAL IVPUSH SCH (10:00)
[2017-05-19] MEDS ORDERED: LEVOTHYROXINE NA 25 MCG TABLET (FP) PO ONE (15:00)
[2017-05-19 15:10] VITALS: BP 136/54; PULSE 67; TEMP 98.4
--- NOTE | 2017-05-19 16:07 | DS ---
Physical Exam: SUBJECTIVE: Patient seen and examined at bedside. Patient states that she hasn' t gotten her synthroid this morning and that she takes 25 mcgs before breakfast. She states that her breathing has improved and she feels as if she is at baseline. Daughter was called to discuss discharge for today. OBJECTIVE: Vital Signs Period Temp Pulse Resp BP Sys/Gardner Pulse Ox Last 24 Hr 97.4 F-98.8 F 60-71 18-20 119-136/50-62 96-96 PHYSICAL EXAM GENERAL: The patient is awake, alert, and fully oriented, in no acute distress. HEAD: Normal with no signs of trauma. EYES: PERRL, extraocular movements intact, sclera anicteric, conjunctiva clear. ENT: Ears normal, nares patent, oropharynx clear without exudates, moist mucous membranes. NECK: Trachea midline, full range of motion, supple. LUNGS: Breath sounds equal, clear to auscultation bilaterally, no wheezes, no crackles, no accessory muscle use. Patient is breathing on 2L on nasal cannula HEART: Regular rate and rhythm, normal S1 and S2, 3/6 systolic murmur appreciated on exam ABDOMEN: Obese, nontender, not distended, normoactive bowel sounds, no guarding , no rebound, no masses. No hepatomegaly or splenomegaly. EXTREMITIES: 2+ pulses, warm, well-perfused, no edema. NEUROLOGICAL: Cranial nerves II through XII grossly intact. Normal speech, gait not observed. PSYCH: Normal mood, normal affect. SKIN: Warm, dry, normal turgor, no rashes or lesions noted. LABS Laboratory Results - last 24 hr 05/18/17 05/18/17 05/19/17 16:51 22:28 05:15 Sodium Cancelled Potassium Cancelled Chloride Cancelled Carbon Dioxide Cancelled Anion Gap Cancelled BUN Cancelled Creatinine Cancelled POC Glucometer 235 284 Random Glucose Cancelled Hemoglobin A1c % Calcium Cancelled Magnesium Cancelled Triglycerides Cancelled Cholesterol Cancelled Total LDL Cholesterol Cancelled HDL Cholesterol Cancelled TSH Cancelled 05/19/17 05/19/17 05/19/17 05:15 06:07 11:13 Sodium Potassium Chloride Carbon Dioxide Anion Gap BUN Creatinine POC Glucometer 226 326 Random Glucose Hemoglobin A1c % 9.7 H Calcium Magnesium Triglycerides Cholesterol Total LDL Cholesterol HDL Cholesterol TSH HOSPITAL COURSE: Date of Admission:05/16/17 82 year old female wit llanes past medical history of DM, HTN, and arthritis arrived at the hospital with shortness of breath and leg swelling. She initially stated that she uses home O2 only as needed, but over the last couple of days she had been using it at all times. She states that her legs have been swollen and that she needs to sleep with 2 pillows propping her up in order to properly breath while she sleeps. Patient was admitted for the treatment of CHF exacerbation and COPD exacerbation. She was treated with IV lasix, duonebs, and prednisone. After several days in the hospital, patient clinically improved and no longer needed bipap. She was discharged home on a fast steroid taper and instructions to follow with her primary care physician and her plastic duplicator. She was counseled on the importance of adequately controlling her sugars and her blood pressure. Date of Discharge: 05/19/17 Minutes to complete discharge: 35 <Sreekanth Luciano - Last Filed: 05/19/17 16:10> Physical Exam: Patient seen and examined with the recording studio internship. Agree with the plan. Continue home regimen, follow up with Pulmonary and cardiology. <Cachorro Gipson - Last Filed: 05/19/17 20:33> Discharge Summary Reason For Visit: RESP DISTRESS/ACUTE EXACERBATION OF CHF Current Active Problems Acute on chronic diastolic (congestive) heart failure (Acute) Ueard-cu-fplyqek kidney injury (Acute) CHF exacerbation (Acute) HTN (hypertension) (Acute) History of coronary artery stent placement (Acute) 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 infarction (Acute) Respiratory distress (Acute) Shortness of breath (Acute) - Home Medications Comprehensive Discharge Medication List: Ambulatory Orders Aspirin [Aspirin EC] 81 mg PO DAILY 11/09/13 Insulin Lispro [Humalog] 12 unit SQ TIDCM 03/02/14 Atorvastatin Ca [Lipitor] 40 mg PO HS #30 tablet 03/11/14 Clopidogrel Bisulfate [Plavix -] 75 mg PO DAILY #30 tablet 03/11/14 Metoprolol Succinate [Toprol XL -] 25 mg PO DAILY #30 tab.sr.24h 03/11/14 Pantoprazole Sodium [Protonix -] 20 mg PO DAILY #30 tablet.ec 03/11/14 Insulin (Levemir) [Levemir Flexpen -] 12 units SQ HS 05/16/17 Prednisone See Taper PO DAILY #14 tablet 05/19/17 Valsartan [Diovan] 40 mg PO DAILY #14 tablet 05/19/17 <Sreekanth Luciano - Last Filed: 05/19/17 16:10> - Home Medications Comprehensive Discharge Medication List: Ambulatory Orders Aspirin [Aspirin EC] 81 mg PO DAILY 11/09/13 Insulin Lispro [Humalog] 12 unit SQ TIDCM 03/02/14 Atorvastatin Ca [Lipitor] 40 mg PO HS #30 tablet 03/11/14 Clopidogrel Bisulfate [Plavix -] 75 mg PO DAILY #30 tablet 03/11/14 Metoprolol Succinate [Toprol XL -] 25 mg PO DAILY #30 tab.sr.24h 03/11/14 Pantoprazole Sodium [Protonix -] 20 mg PO DAILY #30 tablet.ec 03/11/14 Insulin (Levemir) [Levemir Flexpen -] 12 units SQ HS 05/16/17 Prednisone See Taper PO DAILY #14 tablet 05/19/17 Valsartan [Diovan] 40 mg PO DAILY #14 tablet 05/19/17 <Cachorro Gipson - Last Filed: 05/19/17 20:33> Condition: Stable - Instructions Diet, Activity, Other Instructions: You were treated in the hospital for congestive heart failure and chronic obstructive pulmonary disease exacerbations. We treated you with Lasix (water pill) to remove water from your lungs, which is why you were having difficulty breathing prior to coming to the hospital. Medical Recommendations: #Continue taking aspirin 81mg daily #Continue taking plavix 75mg daily #Continue taking Lipitor 40mg at night #Continue taking Toprol XL 25mg daily #Continue your other home medications #We will start you on Diovan 40mg once daily, an additional medication for blood pressure. Please pick this up from your pharmacy. #Please take prednisone on a decreasing dose follows: 30mg for 2 days at home 20mg for 2 days at home 10mg for 1 day at home STOP taking the prednisone Referrals #Please make an appointment with your primary care physician within 1 week of discharge #Please make an appointment with Dr. Roy (plastic duplicator) within 2 weeks of discharge for further cardiac workup and continuation of the rest of medications If you experience severe shortness of breath or chest pain, please return to the hospital immediately Referrals: David Roy MD [Staff Physician] - Disposition: HOME This patient is new to me today: No Emergency Visit: No Critical Care patient: No - Discharge Referral Referred to [facility] No <Sreekanth Luciano - Last Filed: 05/19/17 16:10>
--- NOTE | 2017-05-19 17:28 | PN ---
Progress Note, Physician Chief Complaint: Events noted Complains of being tired History of Present Illness: Patient was seen and examined. Awake and alert. Chart was reviewed Denies chest pain, SOB or palpitations As outlined above - Current Medication List Current Medications: Active Medications Albuterol Sulfate (Ventolin 0.083% Nebulizer Soln -) 1 amp NEB Q6H PRN PRN Reason: SHORT OF BREATH/WHEEZING Last Admin: 05/17/17 11:45 Dose: 1 amp Aspirin (Ecotrin -) 81 mg PO DAILY [facility] Last Admin: 05/19/17 09:22 Dose: 81 mg Atorvastatin Calcium (Lipitor -) 40 mg PO HS [facility] Last Admin: 05/18/17 23:00 Dose: 40 mg Clopidogrel Bisulfate (Plavix -) 75 mg PO DAILY [facility] Last Admin: 05/19/17 09:22 Dose: 75 mg Furosemide (Lasix Injection -) 40 mg IVPUSH DAILY [facility] Last Admin: 05/19/17 09:26 Dose: 40 mg Heparin Sodium (Porcine) (Heparin -) 5,000 unit SQ TID [facility] Last Admin: 05/19/17 14:07 Dose: Not Given Insulin Aspart (Novolog Vial Sliding Scale -) 0 vial SQ ACHS [facility] PRN Reason: Protocol Last Admin: 05/19/17 11:17 Dose: 8 units Insulin Detemir (Levemir Vial) 12 units SQ HS [facility] Last Admin: 05/18/17 23:01 Dose: 12 units Ipratropium [place] (Atrovent 0.02% Nebulizer -) 1 amp NEB Q6H PRN PRN Reason: WHEEZING Last Admin: 05/18/17 08:30 Dose: 1 amp Metoprolol Succinate (Toprol Xl -) 25 mg PO DAILY [facility] Last Admin: 05/19/17 09:22 Dose: 25 mg Pantoprazole Sodium (Protonix -) 20 mg PO DAILY [facility] Last Admin: 05/19/17 09:22 Dose: 20 mg Prednisone (Deltasone -) 40 mg PO DAILY [facility] Last Admin: 05/19/17 09:22 Dose: 40 mg - Objective Vital Signs: Vital Signs Temperature 98.4 F 05/19/17 14:00 Pulse Rate 67 05/19/17 14:00 Respiratory Rate 20 05/19/17 14:00 Blood Pressure 136/54 05/19/17 14:00 O2 Sat by Pulse Oximetry (%) 96 05/19/17 07:22 Constitutional: Yes: Well Nourished Eyes: Yes: PERRL HENT: Yes: Atraumatic Neck: Yes: Supple Cardiovascular: Yes: Regular Rate and Rhythm, S1, S2 Respiratory: Yes: Diminished Gastrointestinal: Yes: Normal Bowel Sounds, Soft, Abdomen, Obese. No: Tenderness Edema: No Additional Findings/Remarks: - Review of Systems Constitutional: Denies: Weakness. denies: Chills, Fever Cardiovascular: denies: Chest Pain, denies: Palpitations, Shortness of Breath Respiratory: denies: Cough, Hemoptysis, Orthopnea, PND, SOB, SOB on Exertion Gastrointestinal: denies: Abdominal Pain, Constipation, Diarrhea, Melena, Nausea , Rectal Bleeding, Vomiting Genitourinary: denies: Dysuria, Hematuria Musculoskeletal: denies: Joint Pain Neurological: Denies: Weakness. denies: Dizziness, Headache, Seizure, Syncope Labs: CBC, BMP 05/17/17 05:45 INR, PTT INR 1.06 (0.82-1.09) 05/17/17 05:45 Problem List - Problems (1) Acute on chronic diastolic (congestive) heart failure Code(s): I50.33 - ACUTE ON CHRONIC DIASTOLIC (CONGESTIVE) HEART FAILURE (2) [id number] kidney injury Code(s): N17.9 - ACUTE KIDNEY FAILURE, UNSPECIFIED; N18.9 - CHRONIC KIDNEY DISEASE, UNSPECIFIED Qualifiers: Chronic kidney disease stage: stage 2 (mild) (3) HTN (hypertension) Code(s): I10 - ESSENTIAL (PRIMARY) HYPERTENSION Qualifiers: Hypertension type: essential hypertension Qualified Code(s): I10 - Essential (primary) hypertension (4) History of coronary artery stent placement Code(s): Z95.5 - PRESENCE OF CORONARY ANGIOPLASTY IMPLANT AND GRAFT (5) ASHD (arteriosclerotic heart disease) Code(s): I25.10 - ATHSCL HEART DISEASE OF [place] CORONARY ARTERY W/O ANG PCTRS (6) Diabetes mellitus Code(s): E11.9 - TYPE 2 DIABETES MELLITUS WITHOUT COMPLICATIONS Qualifiers: Diabetes mellitus type: type 2 Diabetes mellitus complication status: without complication Diabetes mellitus mcfp insulin use: without mcfp use Qualified Code(s): E11.9 - Type 2 diabetes mellitus without complications (7) Hyperkalemia Code(s): E87.5 - HYPERKALEMIA (8) Hyperlipidemia Code(s): E78.5 - HYPERLIPIDEMIA, UNSPECIFIED Qualifiers: Hyperlipidemia type: pure hypercholesterolemia Qualified Code(s): E78.00 - Pure hypercholesterolemia, unspecified; E78.0 - Pure hypercholesterolemia Assessment/Plan 1. Acute on chronic diastolic failure - stable 2. CAD s/p ID, PCI (stent), angina pectoris 3. 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 Type 2 DM 5. HTN/HCVD 6. Suspect OSAS 7. Hyperkalemia improving 8. Acute on CKD improving PLAN: 1. Diuretics with monitoring renal function and electrolytes. PO diuretics 2. Transthoracic echocardiography to assess LV/RV and valvular function 3. Bipap as needed, O2, bronchodilator, oral steroids with GI protection 4. Continue ASA 81 daily, Plavix 75 daily, Lipitor 40 nightly, Toprol XL 25 daily. Consider ARB when able to 5. DVT and GI prophylaxis Discharge planning Camilo Bergeron MD
--- NOTE | 2017-05-19 21:51 | EKG ---
Test Reason : Blood Pressure : / mmHG Vent. Rate : 074 BPM Atrial Rate : 074 BPM P-R Int : 162 ms QRS Dur : 142 ms QT Int : 450 ms P-R-T Axes : 067 -63 094 degrees QTc Int : 499 ms NORMAL SINUS RHYTHM LEFT AXIS DEVIATION RIGHT BUNDLE BRANCH BLOCK LEFT VENTRICULAR HYPERTROPHY WITH REPOLARIZATION ABNORMALITY ABNORMAL ECG WHEN COMPARED WITH ECG OF 03-MAR-2014 13:12, VENT. RATE HAS INCREASED Confirmed by MONIKA PETTIT, TELMA ([id number]) on 05/19/2017 9:50:49 PM Referred By: Confirmed By:TELMA FRANK MD
== END 2017-05-19 17:24 | disposition home or self-care (01) | DRG 291 ==
LOC: JER 18:09 → JERBED 23:04 → J4W 05-17 09:50
PROVIDERS: ADMIT Internal Medicine; ATTEND Internal Medicine
DX: I13.0 Hypertensive heart and chronic kidney disease with heart failure and stage 1 through stage 4 chronic kidney disease, or unspecified chronic kidney disease (principal); I50.33 Acute on chronic diastolic (congestive) heart failure; J44.1 Chronic obstructive pulmonary disease with (acute) exacerbation; N17.9 Acute kidney failure, unspecified; J96.12 Chronic respiratory failure with hypercapnia; I25.2 Old myocardial infarction; E11.9 Type 2 diabetes mellitus without complications; R26.89 Other abnormalities of gait and mobility; I45.19 Other right bundle-branch block; E66.8 Other obesity; Z68.38 Body mass index [BMI] 38.0-38.9, adult; I25.10 Atherosclerotic heart disease of native coronary artery without angina pectoris; E11.22 Type 2 diabetes mellitus with diabetic chronic kidney disease; N18.9 Chronic kidney disease, unspecified; E87.5 Hyperkalemia; M13.88 Other specified arthritis, other site; E03.9 Hypothyroidism, unspecified; K21.9 Gastro-esophageal reflux disease without esophagitis; G47.33 Obstructive sleep apnea (adult) (pediatric); K44.9 Diaphragmatic hernia without obstruction or gangrene; Z99.81 Dependence on supplemental oxygen; Z95.5 Presence of coronary angioplasty implant and graft; Z88.0 Allergy status to penicillin
CPT/HCPCS: 36415; 71045-TC; 80048; 80053; 82550; 82962; 83036; 83735; 83880; 84100; 84484; 85025; 85027; 85610; 87040; 87804; 93005; 93010; 93306-TC; 94640; 94660; 99285-25; J1644

== ENCOUNTER 2017-05-28 13:22 | Inpatient (IN) | payer OTHER ==
--- NOTE | 2017-05-28 13:43 | PDOC ---
History of Present Illness - General Chief Complaint: Nausea/Vomiting Stated Complaint: Nausea/Vomiting Time Seen by Provider: 05/28/17 13:32 History Source: Patient, Family - History of Present Illness Initial Comments: 05/28/17 13:44 82 y.o. female with PMH of COPD (on 2 L home O2, h/o 3 intubations), CHF, IN ( 2014 s/p stent x2) IDDM and HTN presents to our ED with acute onset of shortness of breath that she noticed this morning upon awakening - O2 sats in the 70's. Has been using O2 consistently since this morning @ 6 a.m., normally uses 2.5 L O2 PRN, usually after exertion. Patient endorses 2 episodes of clear colored emesis and notes exacerbation of chronic cough, recently productive of sputum. Denies any chest pain, lightheadedness, palpitations, abdominal cramping. Recent admission (05/17-05/19/17) for COPD exacerbation. Past History - Past Medical History Allergies/Adverse Reactions: Allergies Allergy/AdvReac Type Severity Reaction Status Date / Time No Known Drug Allergies Allergy Verified 05/28/17 18:43 Penicillins Allergy Verified 05/28/17 18:43 Apple juice Allergy Uncoded 05/16/17 18:19 Home Medications: Ambulatory Orders Insulin Lispro [Humalog] 12 unit SQ TIDCM 03/02/14 Clopidogrel Bisulfate [Plavix -] 75 mg PO DAILY #30 tablet 03/11/14 Metoprolol Succinate [Toprol XL -] 25 mg PO DAILY #30 tab.sr.24h 03/11/14 Pantoprazole Sodium [Protonix -] 20 mg PO DAILY #30 tablet.ec 03/11/14 Insulin (Levemir) [Levemir Flexpen -] 12 units SQ HS 05/16/17 Anemia: No Asthma: No Cancer: No Cardiac Disorders: Yes (IN with stents) CVA: No COPD: Yes (COPD) CHF: No Dementia: No Diabetes: Yes GI Disorders: No Disorders: No HTN: Yes Hypercholesterolemia: No Liver Disease: No Seizures: Yes (?2013-LAST ONE) Thyroid Disease: No - Surgical History Abdominal Surgery: No Appendectomy: No Cardiac Surgery: Yes (cardiac cath with stents) Cholecystectomy: No Lung Surgery: No Neurologic Surgery: No Orthopedic Surgery: No - Family Disease History Family Disease History: Diabetes: Mother - Immunization History Immunization Up to Date: Yes - Suicide/Smoking/Psychosocial Hx Smoking History: Never smoked Have you smoked in the past 12 months: No Information on smoking cessation initiated: No Hx Alcohol Use: No Drug/Substance Use Hx: No Substance Use Type: None Hx Substance Use Treatment: No *Physical Exam - Vital Signs Last Vital Signs Temp Pulse Resp BP Pulse Ox 99.5 F 78 18 145/81 100 05/28/17 13:26 05/28/17 13:26 05/28/17 13:26 05/28/17 13:26 05/28/17 13:26 - Physical Exam Comments: 05/28/17 17:21 GENERAL: Awake, alert, and fully oriented, obese HEAD: No signs of trauma EYES: PERRLA, EOMI, sclera anicteric, conjunctiva clear ENT: Auricles normal inspection, hearing grossly normal, nares patent, oropharynx clear without exudates. Moist mucosa NECK: Normal ROM, supple, no lymphadenopathy, JVD, or masses LUNGS: B/L wheezing in posterior and anterior lung greer HEART: Grade II systolic murmur appreciated in R 2nd intercostal space, S1, S2 ABDOMEN: Soft, minimal RUQ tenderness, normoactive bowel sounds EXTREMITIES: 3+ B/L pitting edema, warm ED Treatment Course - LABORATORY CBC & Chemistry Diagram: 05/28/17 14:45 05/28/17 15:30 - RADIOLOGY Radiology Studies Ordered: Category Date Time Status CXRPORT [CHEST X-RAY PORTABLE*] [RAD] Stat Radiology 05/28/17 13:41 Ordered Medical Decision Making - Medical Decision Making 05/28/17 13:52 82 y.o. female with significant cardiopulmonary history including h/o IN, CHF, COPD w/intubations presents with acute onset of dypsnea, nausea/ and bilious vomiting. Currently saturating @ 94% on home O2 level of 2 L. Clinical suspicion Influenza vs. Pneumonia vs COPD exacerbation vs. CHF. Dyspnea possible anginal equivalent - will obtain Troponin, EKG. Cardiac monitoring while in ED. Reassess 05/28/17 14:09 ABG significant for pCO2 79 --> BIPAP; Influenza B positive 05/28/17 15:27 Bilious emesis, belly soft, minimal RUQ TTP (patient s/p cholecystectomy); will stablilize patient and send for CT - low clinical suspicion for SBO 05/28/17 17:08 Combivent x2, CXR shows L sided pleural effusion, unchanged from prior XR. EKG shows NSR (Hr 74), LAD, Q waves V4-V6, the latter inconsistent with previous EKG -- possible lateral infarct. Troponin 0.59 --> ASA 324 mg. Will also administer Mg and Predisone bolus for presumed COPD exacerbation. Patient to be admitted - likely ICU. Repeat ABG pending. 05/28/17 20:21 Patient admitted to inpatient medicine - ICU. Will continue to monitor while in ED. Patient signed out to Dr. Tavares (Resident). *DC/Admit/Observation/Transfer Diagnosis at time of Disposition: Shortness of breath, Acute on chronic diastolic (congestive) heart failure, Acute hypercapnic respiratory failure, Influenza B - Discharge Dispostion Condition at time of disposition: Guarded Admit: Yes - Referrals - Patient Instructions - Post Discharge Activity
--- NOTE | 2017-05-28 14:18 | PDOC ---
Attending Attestation - HPI HPI: 05/28/17 14:21 82 y.o female with significant past medical history of CAD s/p stents, CHF, COPD (on O2 at home), and DM, who presents today complaining of nausea and vomiting that started this morning. <LorenaDayna - Last Filed: 05/28/17 14:21> - Resident Resident Name: Jaja Whitfield - ED Attending Attestation I have performed the following: I have examined & evaluated the patient, The case was reviewed & discussed with the resident, I agree w/resident's findings & plan, Exceptions are as noted - Physicial Exam PE: 05/28/17 16:29 Patient is somnolent but easily arousable, morbidly obese, tachypneic and dyspneic; nc, atr perrla, eomi + Diffuse expiratory wheezing bilaterally with prolonged expiratory phase, with intermittent rhonchi most pronounced at the bases; rrr, 2/6 systolic ejection murmur sft, nt, nd + Bilateral +1 lower extremity edema; - Medical Decision Making 05/28/17 16:30 Patient is an 82-year-old female with history of CAD, COPD on 2-1/2 L a minute of supplemental O2 via nasal cannula presents to the ER for worsening shortness of breath as well as several episodes of nonbloody, but bilious vomiting. In the ER, patient is afebrile, but hypoxemic on room air, improving to 94% on 2 L via nasal cannula. Diffuse expiratory wheezing is noted bilaterally with intermittent rhonchi. Serial abdominal exams reveal no focal tenderness or distention. Bowel sounds are normal in all 4 quadrants. There is no lower extremity edema, some lower extremity ecchymoses and noted. Chest x-ray reveals no evidence of infiltrate, small left sided pleural effusion is noted which is unchanged from previous. EKG reveals normal sinus rhythm, with LVH and left axis deviation, Q waves in V4 through V6 and noted which appear new in comparison to the previous EKG. Patient is noted to be influenza be positive. We 'll administer Combivent, magnesium and will continue with prednisone. We'll administer Tamiflu. ABG shows hypercapnia of 78. Will place on BiPAP. Will obtain CT abd and pelvis to rule out SBO (pretest probability is relatively low) . Will admit. <Jose Patel - Last Filed: 05/28/17 16:46>
[2017-05-28] MEDS ORDERED: ALBUTEROL SO4 2.5/IPRATROPIUM 0.5 INH SOL 3 ML VIAL.NEB. NEB ONE ×2 (14:26→14:45)
--- NOTE | 2017-05-28 14:50 | EKG ---
Test Reason : Blood Pressure : / mmHG Vent. Rate : 077 BPM Atrial Rate : 077 BPM P-R Int : 168 ms QRS Dur : 128 ms QT Int : 416 ms P-R-T Axes : 063 -69 063 degrees QTc Int : 470 ms NORMAL SINUS RHYTHM LEFT AXIS DEVIATION RIGHT BUNDLE BRANCH BLOCK MODERATE VOLTAGE CRITERIA FOR LVH, MAY BE NORMAL VARIANT INFERIOR INFARCT (CITED ON OR BEFORE 28-MAY-2017) ANTEROLATERAL INFARCT (CITED ON OR BEFORE 28-MAY-2017) ABNORMAL ECG WHEN COMPARED WITH ECG OF 16-MAY-2017 18:24, SERIAL CHANGES OF ANTERIOR INFARCT PRESENT Confirmed by BREONNA PETTIT, JOE ([id number]) on 05/28/2017 2:49:58 PM Referred By: Confirmed By:JOE RAVI MD
[2017-05-28 15:13] LABS: ARTERIAL BLD GAS O2 SATURATION 80.4 % (90-98.9); ARTERIAL BLOOD GAS pH 7.32 (7.35-7.45)
[2017-05-28] MEDS ORDERED: METOCLOPRAMIDE HCL INJECTION 10 MG/2 ML VIAL IVPUSH ONE (15:17)
[2017-05-28] MEDS ORDERED: METOCLOPRAMIDE HCL INJECTION 10 MG/2 ML VIAL ONE (15:18)
[2017-05-28] MEDS ORDERED: MAGNESIUM SULF 50% (8.12 MEQ/2 ML-1 GM VIAL) ONE (15:18)
[2017-05-28 15:19] LABS: ARTERIAL BLOOD GAS PCO2 78.4 mmHg (35-45); ARTERIAL BLOOD GAS PO2 49.4 mmHg (68-100)
[2017-05-28 15:52] LABS: BASO % 0.3 % (0-2.0); EOS % 0.5 % (0-4.5); HEMATOCRIT 40.5 % (32.4-45.2); HEMOGLOBIN 12.1 GM/dL (10.7-15.3); LYMPH % 4.9 % (8-40); MCHC 29.9 g/dl (32.0-36.0); MEAN CELL VOLUME 66.8 fl (80-96); MEAN PLT VOLUME 8.9 fl (7.5-11.1); MONO % 9.4 % (3.8-10.2); NEUT % 84.9 % (42.8-82.8); PLATELET COUNT 202 K/MM3 (134-434); RBC 6.06 M/mm3 (3.60-5.2); RDW 19.2 % (11.6-15.6); WHITE BLOOD COUNT 6.7 K/mm3 (4.0-10.0)
[2017-05-28 15:55] LABS: ADD RBC MORPHOLOGY YES
[2017-05-28 16:20] LABS: INR 1.02 (0.82-1.09); PROTHROMBIN TIME (PATIENT) 11.5 SEC (9.98-11.88)
[2017-05-28 16:21] LABS: ALBUMIN 3.4 g/dl (3.4-5.0); ANION GAP 4 (8-16); BLOOD UREA NITROGEN 24 mg/dL (7-18); CHLORIDE 91 mmol/L (98-107); CO2 40 mmol/L (21-32); GLUCOSE,RANDOM 132 mg/dL (74-106); MAGNESIUM 2.1 mg/dL (1.8-2.4); POTASSIUM 4.5 mmol/L (3.5-5.1); SODIUM 135 mmol/L (136-145)
[2017-05-28] MEDS: ALBUTEROL SO4 2.5/IPRATROPIUM 0.5 INH SOL 3 ML VIAL.NEB. NEB SCH ×4 (16:27→17:08)
[2017-05-28 16:38] LABS: ALK PHOS 71 U/L (45-117); BILIRUBIN,TOTAL 1.5 mg/dL (0.2-1.0); SGOT/AST 23 U/L (15-37); SGPT/ALT 22 U/L (12-78); TOT PROT 7.4 g/dl (6.4-8.2)
[2017-05-28] MEDS ORDERED: FUROSEMIDE 40 MG/4 ML INJECTABLE VIAL IVPUSH ONE (16:47)
[2017-05-28 16:57] LABS: ANISOCYTOSIS 1+; PLATELET ESTIMATE ADEQUATE
[2017-05-28] MEDS ORDERED: ASPIRIN 81 MG CHEWABLE TABLETS PO ONE (16:59)
[2017-05-28] MEDS ORDERED: FUROSEMIDE 40 MG/4 ML INJECTABLE VIAL ONE (17:01)
[2017-05-28 17:09] LABS: URINE APPEARANCE SLCLOUDY; URINE BILIRUBIN NEGATIVE (NEGATIVE); URINE BLOOD 1+ (NEGATIVE); URINE COLOR AMBER; URINE GLUCOSE (UA) NEGATIVE (NEGATIVE); URINE KETONE TRACE (NEGATIVE); URINE LEUK ESTERASE TRACE (NEGATIVE); URINE NITRITE NEGATIVE (NEGATIVE)
[2017-05-28 17:13] LABS: URINE PROTEIN 2+ (NEGATIVE)
[2017-05-28 17:14] LABS: URINE BACTERIA MANY /hpf (NONE SEEN); URINE HYALINE CAST 26 /lpf; URINE MUCUS FEW
[2017-05-28] MEDS ORDERED: methylPREDNISolone NA SUCC 40 MG/1 ML VIAL IVPUSH ONE (17:19)
[2017-05-28] MEDS ORDERED: methylPREDNISolone NA SUCC 40 MG/1 ML VIAL ONE (17:36)
[2017-05-28] MEDS ORDERED: ASPIRIN 325 MG TABLET ONE (17:36)
--- NOTE | 2017-05-28 17:39 | PDOC ---
*Physical Exam - Vital Signs Last Vital Signs Temp Pulse Resp BP Pulse Ox 99.5 F 85 18 145/81 96 05/28/17 13:26 05/28/17 16:52 05/28/17 13:26 05/28/17 13:26 05/28/17 16:52 - Physical Exam Comments: 05/28/17 17:37 Gen: arousable, on bipap, sitting up heart: +s1s2 reg Lungs: coarse bs b/l abd: soft, obese ext: trace edema to LE ED Treatment Course - LABORATORY CBC & Chemistry Diagram: 05/28/17 14:45 05/28/17 15:30 - ADDITIONAL ORDERS Additional order review: Laboratory Results 05/28/17 05/28/17 05/28/17 15:30 15:30 15:24 PT with INR INR D-Dimer Puncture Site ABG pH ABG pCO2 at Pt Temp ABG pO2 at Pt Temp ABG HCO3 ABG O2 Sat (Measured) ABG O2 Content ABG Base Excess Krishan Test Oxygen Flow Rate Sodium 135 L Potassium 4.5 Chloride 91 L Carbon Dioxide 40 H Anion Gap 4 L BUN 24 H Creatinine 1.0 Creat Clearance w eGFR 53.21 POC Glucometer Random Glucose 132 H Calcium 8.0 L Magnesium 2.1 Total Bilirubin 1.5 H AST 23 ALT 22 Alkaline Phosphatase 71 Creatine Kinase 58 Troponin I 0.59 H B-Natriuretic Peptide 05031.51 H Total Protein 7.4 Albumin 3.4 Urine Color Caryn Urine Appearance Slcloudy Urine pH 5.0 Ur Specific [place] 1.020 Urine Protein 2+ H Urine Glucose (UA) Negative Urine Ketones Trace H Urine Blood 1+ H Urine Nitrite Negative Urine Bilirubin Negative Urine Urobilinogen 2.0 H Ur Leukocyte Esterase Trace Urine WBC (Auto) 14 Urine RBC (Auto) 1 Urine Bacteria Many Hyaline Casts 26 Urine Mucus Few Blood Type Antibody Screen 05/28/17 05/28/17 05/28/17 15:00 14:45 14:45 PT with INR 11.50 INR 1.02 D-Dimer 441 Puncture Site ABG pH ABG pCO2 at Pt Temp ABG pO2 at Pt Temp ABG HCO3 ABG O2 Sat (Measured) ABG O2 Content ABG Base Excess Krishan Test Oxygen Flow Rate Sodium Potassium Chloride Carbon Dioxide Anion Gap BUN Creatinine Creat Clearance w eGFR POC Glucometer Random Glucose Calcium Magnesium Total Bilirubin AST ALT Alkaline Phosphatase Creatine Kinase Troponin I B-Natriuretic Peptide Total Protein Albumin Urine Color Urine Appearance Urine pH Ur Specific [place] Urine Protein Urine Glucose (UA) Urine Ketones Urine Blood Urine Nitrite Urine Bilirubin Urine Urobilinogen Ur Leukocyte Esterase Urine WBC (Auto) Urine RBC (Auto) Urine Bacteria Hyaline Casts Urine Mucus Blood Type A POSITIVE Antibody Screen Negative 05/28/17 05/28/17 05/28/17 14:40 14:21 14:20 PT with INR INR D-Dimer Puncture Site Right radial ABG pH 7.32 L ABG pCO2 at Pt Temp 78.4 H* ABG pO2 at Pt Temp 49.4 L* ABG HCO3 38.7 H ABG O2 Sat (Measured) 80.4 L ABG O2 Content 13.6 L ABG Base Excess 10.0 H Krishan Test No Result Required. Oxygen Flow Rate 2 Sodium Cancelled Potassium Cancelled Chloride Cancelled Carbon Dioxide Cancelled Anion Gap Cancelled BUN Cancelled Creatinine Cancelled Creat Clearance w eGFR Cancelled POC Glucometer [phone] Random Glucose Cancelled Calcium Cancelled Magnesium Total Bilirubin Cancelled AST Cancelled ALT Cancelled Alkaline Phosphatase Cancelled Creatine Kinase Cancelled Troponin I Cancelled B-Natriuretic Peptide Cancelled Total Protein Cancelled Albumin Cancelled Urine Color Urine Appearance Urine pH Ur Specific [place] Urine Protein Urine Glucose (UA) Urine Ketones Urine Blood Urine Nitrite Urine Bilirubin Urine Urobilinogen Ur Leukocyte Esterase Urine WBC (Auto) Urine RBC (Auto) Urine Bacteria Hyaline Casts Urine Mucus Blood Type Antibody Screen 05/28/17 14:25 Group A Strep Rapid Antigen - Final Throat 05/28/17 14:25 Influenza Types A,B Antigen (REESE) - Preliminary Nasopharyngeal Swab - Preliminary 05/28/17 05/28/17 14:45 14:21 RBC 6.06 H MCV 66.8 L MCHC 29.9 L RDW 19.2 H MPV 8.9 D Neutrophils % 84.9 H D Lymphocytes % 4.9 L D Monocytes % 9.4 Eosinophils % 0.5 Basophils % 0.3 POC Glucometer 143.84060 - Medications Given in the ED: ED Medications Discontinued Medications Generic Name Dose Route Start Last Admin Trade Name Freq PRN Reason Stop Dose Admin Albuterol/Ipratropium 1 amp 05/28/17 14:26 05/28/17 14:50 Duoneb - NEB 05/28/17 14:27 1 amp ONCE ONE Administration Albuterol/Ipratropium 1 amp 05/28/17 16:15 05/28/17 17:08 Duoneb - NEB 05/28/17 17:01 1 amp Q15M RYANN Administration Furosemide 40 mg 05/28/17 16:47 05/28/17 16:56 Lasix Injection - IVPUSH 05/28/17 16:48 40 mg ONCE ONE Administration Magnesium Sulfate/Dextrose 1 100 mls @ 100 mls/hr 05/28/17 14:26 05/28/17 15: 14 gm/ Miscellaneous IVPB 05/28/17 15:25 100 mls/hr ONCE ONE Administration Metoclopramide HCl 10 mg 05/28/17 15:17 05/28/17 15:25 Reglan Injection - IVPUSH 05/28/17 15:18 10 mg ONCE ONE Administration Medical Decision Making - Medical Decision Making 05/28/17 17:38 a/p: 82yo female signed out pending further eval and dispo -will be admitted to the hospitalist. -mildly elevated trop - received asa -Flu B + -CHF and COPD exacerbation -received tamiflu -hypercapnic resp failure-on bipap 05/28/17 19:07 pt will be admitted to [facility] and ICU case discussed with DR. Zarate for ICU and hospitalist *DC/Admit/Observation/Transfer Diagnosis at time of Disposition: Shortness of breath, Acute on chronic diastolic (congestive) heart failure, Acute hypercapnic respiratory failure, Influenza B - Discharge Dispostion Condition at time of disposition: Guarded Admit: Yes - Referrals Referrals: Heena Seaman MD [Primary Care Provider] - - Patient Instructions - Post Discharge Activity
--- NOTE | 2017-05-28 20:06 | HP ---
CHIEF COMPLAINT: Shortness of breath PCP: Dr. Heena Seaman HISTORY OF PRESENT ILLNESS: 82 year-old female with a PMH significant for HTN, HLD, CAD s/p AL s/p stents x 2 (2013), systolic heart failure, COPD on home O2 (intubations x 3), IDDM, and hypothyroidism. Patient presented to the ED with a complaint of acute worsening of her chronic SOB, and cough, since 6:00am this morning. Whereas she normally uses her O2 intermittently, she needed it constantly today. She had two episodes of clear-colored emesis. Her cough is productive of clear sputum. Patient denies chest pain, palpitations, lightheadedness, diaphoresis. She denies fever, sweats, chills. She denies diarrhea. ER course was notable for: (1) Influenza B positive (had flu shot) (2) AB.32/78/49/38/80% on 2L (3) Lasix IV 40mg x 1 (4) on BiPAP SaO2 92% on 30% FiO2 Recent Travel: No PAST MEDICAL HISTORY Hypertension Hyperlipidemia Coronary artery disease Systolic heart failure COPD on home O2 IDDM Arthritis GERD Hypothyroidism PAST SURGICAL HISTORY: Right total knee replacement Scalp mass resection Social History: Smoking: no Alcohol: no Drugs: no Family History: Allergies No Known Drug Allergies Allergy (Verified 05/28/17 18:43) Penicillins Allergy (Verified 05/28/17 18:43) Apple juice Allergy (Uncoded 05/16/17 18:19) HOME MEDICATIONS: Home Medications Medication Instructions Recorded Insulin Lispro [Humalog] 12 unit SQ TIDCM 03/02/14 Clopidogrel Bisulfate [Plavix -] 75 mg PO DAILY #30 tablet 03/11/14 Metoprolol Succinate [Toprol XL -] 25 mg PO DAILY #30 tab.sr.24h 03/11/14 Pantoprazole Sodium [Protonix -] 20 mg PO DAILY #30 tablet.ec 03/11/14 Insulin (Levemir) [Levemir Flexpen 12 units SQ HS 05/16/17 -] REVIEW OF SYSTEMS CONSTITUTIONAL: Absent: fever, chills, diaphoresis, generalized weakness, malaise, loss of appetite, weight change HEENT: Absent: rhinorrhea, nasal congestion, throat pain, throat swelling, difficulty swallowing, mouth swelling, ear pain, eye pain, visual changes CARDIOVASCULAR: Absent: chest pain, syncope, palpitations, irregular heart rate, lightheadedness , peripheral edema RESPIRATORY: +SOB, +MONTANO, +cough Absent: orthopnea, wheezing, stridor, hemoptysis GASTROINTESTINAL: +nausea +vomiting Absent: abdominal distension, diarrhea, constipation, melena, hematochezia GENITOURINARY: Absent: dysuria, frequency, urgency, hesitancy, hematuria, flank pain, genital pain MUSCULOSKELETAL: Absent: myalgia, arthralgia, joint swelling, back pain, neck pain SKIN: Absent: rash, itching, pallor HEMATOLOGIC/IMMUNOLOGIC: Absent: easy bleeding, easy bruising, lymphadenopathy, frequent infections ENDOCRINE: Absent: unexplained weight gain, unexplained weight loss, heat intolerance, cold intolerance NEUROLOGIC: Absent: headache, focal weakness or paresthesias, dizziness, unsteady gait, seizure, mental status changes, bladder or bowel incontinence PSYCHIATRIC: Absent: anxiety, depression, suicidal or homicidal ideation, hallucinations. PHYSICAL EXAMINATION Vital Signs - 24 hr 05/28/17 05/28/17 05/28/17 13:26 16:30 16:52 Temperature 99.5 F 97.9 F Pulse Rate 78 85 Pulse Rate [ 82 Apical] Respiratory 18 27 H Rate Blood Pressure 145/81 Blood Pressure 140/73 [Right Arm] O2 Sat by Pulse 100 100 96 Oximetry (%) 05/28/17 05/28/17 17:43 19:11 Temperature Pulse Rate Pulse Rate [ 91 H Apical] Respiratory 20 Rate Blood Pressure Blood Pressure 142/80 [Right Arm] O2 Sat by Pulse 96 94 L Oximetry (%) GENERAL: Awake, alert, and fully oriented, on BiPAP, mild respiratory distress HEAD: Normal with no signs of trauma. EYES: Pupils equal, round and reactive to light, extraocular movements intact, sclera anicteric, conjunctiva clear. No lid lag. EARS, NOSE, THROAT: Ears normal, nares patent; on BiPAP mask NECK: Normal range of motion, supple without lymphadenopathy, JVD, or masses. LUNGS: Mechanical breath sounds; inspiratory and expiratory wheezing, poor air movement HEART: Regular rate and rhythm, normal S1 and S2 without murmur, rub or gallop. ABDOMEN: Soft, nontender, not distended, hypoactive bowel sounds, no guarding, no rebound, no masses. MUSCULOSKELETAL: Normal range of motion at all joints. No bony deformities or tenderness. No CVA tenderness. UPPER EXTREMITIES: 2+ pulses, warm, well-perfused. No cyanosis. No clubbing. No peripheral edema. LOWER EXTREMITIES: 2+ pulses, warm, well-perfused. No calf tenderness. Trace bilateral edema NEUROLOGICAL: Cranial nerves II-XII intact. Normal speech. Laboratory Results - last 24 hr 05/28/17 05/28/17 05/28/17 14:20 14:21 14:40 WBC RBC Hgb Hct MCV MCH MCHC RDW Plt Count MPV Neutrophils % Lymphocytes % Monocytes % Eosinophils % Basophils % Hypochromia Platelet Estimate Basophilic Stippling Anisocytosis PT with INR INR D-Dimer Puncture Site Right radial ABG pH 7.32 L ABG pCO2 at Pt Temp 78.4 H* ABG pO2 at Pt Temp 49.4 L* ABG HCO3 38.7 H ABG O2 Sat (Measured) 80.4 L ABG O2 Content 13.6 L ABG Base Excess 10.0 H Krishan Test No Result Required. Oxygen Flow Rate 2 Sodium Cancelled Potassium Cancelled Chloride Cancelled Carbon Dioxide Cancelled Anion Gap Cancelled BUN Cancelled Creatinine Cancelled Creat Clearance w eGFR Cancelled POC Glucometer 143.89405 Random Glucose Cancelled Calcium Cancelled Magnesium Total Bilirubin Cancelled AST Cancelled ALT Cancelled Alkaline Phosphatase Cancelled Creatine Kinase Cancelled Troponin I Cancelled B-Natriuretic Peptide Cancelled Total Protein Cancelled Albumin Cancelled Urine Color Urine Appearance Urine pH Ur Specific [place] Urine Protein Urine Glucose (UA) Urine Ketones Urine Blood Urine Nitrite Urine Bilirubin Urine Urobilinogen Ur Leukocyte Esterase Urine WBC (Auto) Urine RBC (Auto) Urine Bacteria Hyaline Casts Urine Mucus Blood Type Antibody Screen 05/28/17 05/28/17 05/28/17 14:45 14:45 14:45 WBC 6.7 RBC 6.06 H Hgb 12.1 D Hct 40.5 MCV 66.8 L MCH 20.0 L MCHC 29.9 L RDW 19.2 H Plt Count 202 D MPV 8.9 D Neutrophils % 84.9 H D Lymphocytes % 4.9 L D Monocytes % 9.4 Eosinophils % 0.5 Basophils % 0.3 Hypochromia 1+ Platelet Estimate Adequate Basophilic Stippling Rare Anisocytosis 1+ PT with INR 11.50 INR 1.02 D-Dimer 441 Puncture Site ABG pH ABG pCO2 at Pt Temp ABG pO2 at Pt Temp ABG HCO3 ABG O2 Sat (Measured) ABG O2 Content ABG Base Excess Krishan Test Oxygen Flow Rate Sodium Potassium Chloride Carbon Dioxide Anion Gap BUN Creatinine Creat Clearance w eGFR POC Glucometer Random Glucose Calcium Magnesium Total Bilirubin AST ALT Alkaline Phosphatase Creatine Kinase Troponin I B-Natriuretic Peptide Total Protein Albumin Urine Color Urine Appearance Urine pH Ur Specific [place] Urine Protein Urine Glucose (UA) Urine Ketones Urine Blood Urine Nitrite Urine Bilirubin Urine Urobilinogen Ur Leukocyte Esterase Urine WBC (Auto) Urine RBC (Auto) Urine Bacteria Hyaline Casts Urine Mucus Blood Type Antibody Screen 05/28/17 05/28/17 05/28/17 15:00 15:24 15:30 WBC RBC Hgb Hct MCV MCH MCHC RDW Plt Count MPV Neutrophils % Lymphocytes % Monocytes % Eosinophils % Basophils % Hypochromia Platelet Estimate Basophilic Stippling Anisocytosis PT with INR INR D-Dimer Puncture Site ABG pH ABG pCO2 at Pt Temp ABG pO2 at Pt Temp ABG HCO3 ABG O2 Sat (Measured) ABG O2 Content ABG Base Excess Krishan Test Oxygen Flow Rate Sodium 135 L Potassium 4.5 Chloride 91 L Carbon Dioxide 40 H Anion Gap 4 L BUN 24 H Creatinine 1.0 Creat Clearance w eGFR 53.21 POC Glucometer Random Glucose 132 H Calcium 8.0 L Magnesium 2.1 Total Bilirubin 1.5 H AST 23 ALT 22 Alkaline Phosphatase 71 Creatine Kinase 58 Troponin I 0.59 H B-Natriuretic Peptide Total Protein 7.4 Albumin 3.4 Urine Color Caryn Urine Appearance Slcloudy Urine pH 5.0 Ur Specific [place] 1.020 Urine Protein 2+ H Urine Glucose (UA) Negative Urine Ketones Trace H Urine Blood 1+ H Urine Nitrite Negative Urine Bilirubin Negative Urine Urobilinogen 2.0 H Ur Leukocyte Esterase Trace Urine WBC (Auto) 14 Urine RBC (Auto) 1 Urine Bacteria Many Hyaline Casts 26 Urine Mucus Few Blood Type A POSITIVE Antibody Screen Negative 05/28/17 15:30 WBC RBC Hgb Hct MCV MCH MCHC RDW Plt Count MPV Neutrophils % Lymphocytes % Monocytes % Eosinophils % Basophils % Hypochromia Platelet Estimate Basophilic Stippling Anisocytosis PT with INR INR D-Dimer Puncture Site ABG pH ABG pCO2 at Pt Temp ABG pO2 at Pt Temp ABG HCO3 ABG O2 Sat (Measured) ABG O2 Content ABG Base Excess Krishan Test Oxygen Flow Rate Sodium Potassium Chloride Carbon Dioxide Anion Gap BUN Creatinine Creat Clearance w eGFR POC Glucometer Random Glucose Calcium Magnesium Total Bilirubin AST ALT Alkaline Phosphatase Creatine Kinase Troponin I B-Natriuretic Peptide 61894.51 H Total Protein Albumin Urine Color Urine Appearance Urine pH Ur Specific [place] Urine Protein Urine Glucose (UA) Urine Ketones Urine Blood Urine Nitrite Urine Bilirubin Urine Urobilinogen Ur Leukocyte Esterase Urine WBC (Auto) Urine RBC (Auto) Urine Bacteria Hyaline Casts Urine Mucus Blood Type Antibody Screen ASSESSMENT/PLAN 82 year-old female with a PMH significant for HTN, HLD, CAD s/p AL s/p stents x 2 (2013), systolic and diastolic heart failure, COPD on home O2 (intubations x 3 ), IDDM, and arthritis. Admitted for acute hypercapnic and hypoxic respiratory failure, influenza B, COPD exacerbation, and systolic heart failure exacerbation. Acute on chronic hypercapnic and hypoxic respiratory failure, multifactorial --continue BiPAP Influenza B --Tamiflu --empiric ceftriaxone, azithromycin COPD exacerbation --albuterol nebs q6h scheduled --solumedrol 40mg q6h Acute on chronic systolic and diastolic heart failure --05/19/17 Echo: LV function mildly reduced; severe apical wall hypokinesis; apical septal wall severe hypokineses; apical lateral wall moderate hypokinesis ; moderate lateral wall hypokineses; moderate MR; mild to moderate TR; pHTN; moderate 1.1cm2 --BNP 18,353 (05/17 7,615) --Lasix IV 40mg x 1 in ED --Lasix IV 40mg daily Hypertension --BP stable --continue Toprol XL, Diovan Hyperlipidemia --continue Lipitor Coronary artery disease s/p AL s/p stents --10/2013: rotational atherectomy and YURIY PCI of mLAD and diag; residual prox LCx 90-95% calcific; 30-50% LM disease --continue ASA, Toprol XL, Plavix IDDM --Levemir qhs --Novolog sliding scale GERD --protonix Hypothyroidism --check TSH Pyuria --culture pending --on ceftriaxone as above FEN Fluids: PO intake adequate Electrolytes: replete as indicated Nutrition: NPO for now, on continuous BiPAP DVT prophylaxis: on ASA, Plavix; SCDs Physical therapy Dispo: continues to require ICU level care. Full Code. Visit type - Emergency Visit Emergency Visit: Yes ED Registration Date: 05/28/17 Care time: The patient presented to the Emergency Department on the above date and was hospitalized for further evaluation of their emergent condition. - New Patient This patient is new to me today: Yes Date on this admission: 05/28/17 - Critical Care Critical Care patient: Yes Total Critical Care Time (in minutes): 60 Critical Care Statement: The care of this patient involved high complexity decision making to prevent further life threatening deterioration of the patient 's condition and/or to evaluate & treat vital organ system(s) failure or risk of failure.
--- NOTE | 2017-05-28 21:34 | CONSULT ---
Consult - text type - Consultation Consultation Note: PULM/CCM Seen and examined In ICU CC: acute on chronic dyspnea, N/V HPI: Briefly Ms Kolby Sharp is an 82 year-old female with a PMHx significant for HTN, HLD, CAD s/p ND s/p stents x 2 (2013) on plavix, CHF with EF 60% but significant apical hypokineisis and pHTN with Moderate MR, COPD on home O2 and previously on nocturnal NIV (intubations x 3), IDDM, and arthritis. Has two pillow orthopnea and very little exercise tolerance. Rarely leaves house. Recently d/c from [facility] after short admission for COPD/CHF exacerbation. Today pt felt more SOB than normal with increased cough of clear sputum. She also had 2 x episodes of NBNB emesis, no reported aspiration. She used her home o2 all day. Pt denies: CXpn, arm pain, palpitations, dizziness, falls, fever, chills, sweats, dysuria. There was not sick contacts. She has not left house since discharge. Apparently used to be on diuretic but per daughter unk if she takes any now. In ED pt temp 99.5, HR 80s, RR 18, Bp 140/80s, mildly dyspneic. Rapid Flu swab + for Flu B. No white count, cxr essentially unchange from last earlier this month. ABG 7.32/78/50 on NC 2L. HCo3 45 (~baseline) UA with 20+ WBC, 1 RBC, Trace LE, - nit. Trop 0.59. BNP 18K EKG unchanged from baseline. Given ASA 325, and dose of lasix. Tbili 1.5. No abd pain. Pt appeared improved. Admitted to ICU for observation. Past Medical History G[employer] Other Cardio/Vascular CAD,CHF,HTN,ND Gastrointestinal GERD,Hiatal Hernia Endocrine Hypothyroidism Smoking History Smoking history Never smoked Alcohol/Substance Use Hx Alcohol Use No Social History ADL Family Assistance History of Recent Travel Yes: arrived from [place] 2 months ago Home Medications Medication Instructions Recorded Insulin Lispro [Humalog] 12 unit SQ TIDCM 03/02/14 Clopidogrel Bisulfate [Plavix -] 75 mg PO DAILY #30 tablet 03/11/14 Metoprolol Succinate [Toprol XL -] 25 mg PO DAILY #30 tab.sr.24h 03/11/14 Pantoprazole Sodium [Protonix -] 20 mg PO DAILY #30 tablet.ec 03/11/14 Insulin (Levemir) [Levemir Flexpen 12 units SQ HS 05/16/17 -] Vital Signs Temp 97.9 F 05/28/17 16:30 Pulse 77 05/28/17 21:07 Resp 20 05/28/17 21:07 BP 136/52 05/28/17 21:07 Pulse Ox 93 L 05/28/17 21:34 Intake & Output 05/27/17 05/28/17 05/28/17 23:59 11:59 23:59 Weight 98.883 kg Other: Voiding Method Bedpan Height 5 ft 3 in Body Mass Index (BMI) 38.6 Current Medications Albuterol/Ipratropium (Duoneb -) 1 amp NEB Q4H [facility] Aspirin (Ecotrin -) 81 mg PO DAILY [facility] Atorvastatin Calcium (Lipitor -) 40 mg PO HS [facility] Chlorhexidine Gluconate (Hibiclens For Decolonization -) 1 applic TP HS [facility] Clopidogrel Bisulfate (Plavix -) 75 mg PO DAILY [facility] Furosemide (Lasix Injection -) 40 mg IVPUSH DAILY [facility] Ceftriaxone Sodium 1 gm/ (Dextrose) 50 mls @ 100 mls/hr IVPB DAILY [facility] Azithromycin 500 mg/ Dextrose 250 mls @ 250 mls/hr IVPB ONCE ONE Stop: 05/28/17 22:58 Insulin Aspart (Novolog Vial Sliding Scale -) 1 vial SQ ACHS [facility] PRN Reason: Protocol Insulin Detemir (Levemir Vial) 12 units SQ HS [facility] Metoprolol Succinate (Toprol Xl -) 25 mg PO DAILY [facility] Mupirocin (Bactroban Ointment (For Decolonization) -) 1 applic NS BID [facility] Stop: 06/02/17 21:59 Oseltamivir Phosphate (Tamiflu -) 75 mg PO BID [facility] Stop: 06/02/17 21:59 Pantoprazole Sodium (Protonix -) 20 mg PO DAILY [facility] Valsartan (Diovan -) 40 mg PO DAILY [facility] ABG Results ABG pH 7.32 (7.35-7.45) L 05/28/17 14:40 ABG pCO2 at Pt Temp 78.4 mmHg (35-45) H* 05/28/17 14:40 ABG pO2 at Pt Temp 49.4 mmHg (68-100) L* 05/28/17 14:40 ABG HCO3 38.7 meq/L (22-26) H 05/28/17 14:40 ABG O2 Sat (Measured) 80.4 % (90-98.9) L 05/28/17 14:40 ABG O2 Content 13.6 % vol (15-22) L 05/28/17 14:40 ABG Base Excess 10.0 meq/l (-2-2) H 05/28/17 14:40 CBCD WBC 6.7 K/mm3 (4.0-10.0) 05/28/17 14:45 RBC 6.06 M/mm3 (3.60-5.2) H 05/28/17 14:45 Hgb 12.1 GM/dL (10.7-15.3) D 05/28/17 14:45 Hct 40.5 % (32.4-45.2) 05/28/17 14:45 MCV 66.8 fl (80-96) L 05/28/17 14:45 MCHC 29.9 g/dl (32.0-36.0) L 05/28/17 14:45 RDW 19.2 % (11.6-15.6) H 05/28/17 14:45 Plt Count 202 K/MM3 (134-434) D 05/28/17 14:45 MPV 8.9 fl (7.5-11.1) D 05/28/17 14:45 CMP Sodium 135 mmol/L (136-145) L 05/28/17 15:30 Potassium 4.5 mmol/L (3.5-5.1) 05/28/17 15:30 Chloride 91 mmol/L (98-107) L 05/28/17 15:30 Carbon Dioxide 40 mmol/L (21-32) H 05/28/17 15:30 Anion Gap 4 (8-16) L 05/28/17 15:30 BUN 24 mg/dL (7-18) H 05/28/17 15:30 Creatinine 1.0 mg/dL (0.55-1.02) 05/28/17 15:30 Creat Clearance w eGFR 53.21 (>60) 05/28/17 15:30 Random Glucose 132 mg/dL (74-106) H 05/28/17 15:30 Calcium 8.0 mg/dL (8.5-10.1) L 05/28/17 15:30 Total Bilirubin 1.5 mg/dL (0.2-1.0) H 05/28/17 15:30 AST 23 U/L (15-37) 05/28/17 15:30 ALT 22 U/L (12-78) 05/28/17 15:30 Alkaline Phosphatase 71 U/L (45-117) 05/28/17 15:30 Total Protein 7.4 g/dl (6.4-8.2) 05/28/17 15:30 Albumin 3.4 g/dl (3.4-5.0) 05/28/17 15:30 CARDIAC ENZYMES Creatine Kinase 58 IU/L (26-192) 05/28/17 15:30 Troponin I 0.59 ng/ml (0.00-0.05) H 05/28/17 15:30 CXR: reviewed, no interval change, pulm vasc congestion EKG: improved lateral TWI but otherwise unchanged. PE: Gen: non toxic, eld obese woman, without distress on NIV HEENT: NCAT, EOMI, no jvp PULM: few basilar crackles. diminished throughout. no wheezes CV: distant heart sounds, unable to appreciate m/r/g ABD: obsese, soft, NT, ND no hepatosplenomegaly EXT: trace dependent edema, 2+ pulse Neuro: non-focal exam A/ 82 y/o woman with HTN, DM, CAD, CHF, COPD now with influenza B, acute on chronic hypercapnea and + trop likely demand responding to NIV and diuresis P/ -cont NIV overnight, avoid over ventilation and keep Spo2 ~92, trial NC 2L in am -nebs prn, minimal wheezes, started on medrol, would quickly taper as not significantly obstructing - Azith and Ceftriaxone pending cxl -treatment dose tamiflu -diuresis 1-2L, lasix given, repeat as needed, likely needs resumption of home diuretic -serial trop, if conts to rise cards consult -cont asa and plavix -glucose control, long acting with sliding scale -DVT and GI prophy ICU care Critical Care Total Critical Care Time (in minutes): 35 Critical Care Statement: The care of this patient involved high complexity decision making to prevent further life threatening deterioration of the patient 's condition and/or to evaluate & treat vital organ system(s) failure or risk of failure.
[2017-05-28] MEDS ORDERED: ATORVASTATIN CA 40 MG TABLET (FP) PO SCH (22:00)
[2017-05-28] MEDS ORDERED: CHLORHEXIDINE GLUCONATE 4% CLEANSER FOR DECOLONIZATION TP SCH (22:00)
[2017-05-28] MEDS ORDERED: CEFTRIAXONE 1 G/50 ML PREMIX 50 ML IVPB SCH (22:00)
[2017-05-28 22:05] VITALS: BMI 39.1
[2017-05-28] MEDS ORDERED: AZITHROMYCIN IVPB 500 MG in DEXTROSE 5%-WATER - 250 ML IVPB ONE (22:15)
[2017-05-28] MEDS ORDERED: ALBUTEROL SO4 2.5/IPRATROPIUM 0.5 INH SOL 3 ML VIAL.NEB. NEB SCH (22:15)
[2017-05-28] MEDS: MUPIROCIN 2% TOPICAL OINTMENT FOR DECOLONIZATION NS SCH (22:43)
[2017-05-28] MEDS: OSELTAMIVIR PHOSPHATE 75 MG CAPSULE PO SCH (22:44)
[2017-05-29] MEDS: ALBUTEROL SO4 0.083% IH SOL 2.5 MG/3 ML VIAL.NEB. NEB SCH ×5 (00:05→21:00)
[2017-05-29] MEDS: HEPARIN NA (PORCINE) 5,000 UNITS/ML 1ML VIAL SQ SCH ×4 (00:45→22:24)
[2017-05-29] MEDS: methylPREDNISolone NA SUCC 40 MG/1 ML VIAL IVPUSH SCH ×4 (02:06→22:23)
[2017-05-29] MEDS: INSULIN SLIDING SCALE (NOVOLOG) 1 VIAL SQ SCH ×5 (06:09→23:00)
[2017-05-29 06:20] LABS: BASO % 0.1 % (0-2.0); HEMATOCRIT 37.3 % (32.4-45.2); HEMOGLOBIN 11.2 GM/dL (10.7-15.3); LYMPH % 4.6 % (8-40); MCH 20.1 pg (25.7-33.7); MEAN CELL VOLUME 66.9 fl (80-96); MEAN PLT VOLUME 8.9 fl (7.5-11.1); MONO % 1.2 % (3.8-10.2); NEUT % 94.1 % (42.8-82.8); PLATELET COUNT 205 K/MM3 (134-434); RBC 5.57 M/mm3 (3.60-5.2); RDW 19.1 % (11.6-15.6); WHITE BLOOD COUNT 5.2 K/mm3 (4.0-10.0)
[2017-05-29 06:30] LABS: ARTERIAL BLOOD GAS BASE EXCESS 9.9 meq/l (-2-2); ARTERIAL BLOOD GAS PO2 93.9 mmHg (68-100)
[2017-05-29 06:39] LABS: ALLENS TEST POSITIVE; ARTERIAL BLOOD GAS PCO2 80.4 mmHg (35-45)
[2017-05-29 06:41] LABS: ALBUMIN 2.9 g/dl (3.4-5.0); ANION GAP 4 (8-16); BILIRUBIN,TOTAL 1.1 mg/dL (0.2-1.0); BLOOD UREA NITROGEN 28 mg/dL (7-18); CALCIUM 7.3 mg/dL (8.5-10.1); CHLORIDE 90 mmol/L (98-107); CO2 40 mmol/L (21-32); CREATININE 0.9 mg/dL (0.55-1.02); GLUCOSE,RANDOM 268 mg/dL (74-106); MAGNESIUM 2.1 mg/dL (1.8-2.4); PHOSPHOROUS 4.5 mg/dL (2.5-4.9); POTASSIUM 5.1 mmol/L (3.5-5.1); SGOT/AST 18 U/L (15-37); SGPT/ALT 18 U/L (12-78); SODIUM 134 mmol/L (136-145); TOT PROT 6.7 g/dl (6.4-8.2)
[2017-05-29 06:49] LABS: ALK PHOS 60 U/L (45-117)
--- NOTE | 2017-05-29 08:12 | PN ---
Physical Exam: SUBJECTIVE: Patient seen and examined. Patient Influenza B+, COPD with home O2 at 3L, now on BIPAP-03/04, RR-21. No new c/o, ABG appears closer to baseline than on admission. OBJECTIVE: Vital Signs Period Temp Pulse Resp BP Sys/Gardner Pulse Ox Last 24 Hr 97.9 F-99.5 F 70-100 18-27 100-145/39-81 92-100 Vital Signs Temp 98.4 F 05/29/17 06:00 Pulse 72 05/29/17 06:00 Resp 27 H 05/29/17 06:00 BP 119/71 05/29/17 06:00 Pulse Ox 94 L 05/29/17 07:41 Intake & Output 05/26/17 05/27/17 05/28/17 05/29/17 23:59 23:59 23:59 23:59 Intake Total 350 Balance 350 Weight 100.2 kg 100.2 kg GENERAL: The patient is awake, on BIPAP-03/04, RR-21 HEAD: Normal with no signs of trauma. EYES: PERRL, extraocular movements intact ENT: on BIPAP-03/04, RR-21 NECK: supple. LUNGS: Rhonchi >L anteriorly, with reduced breath sounds >R posteriorly HEART: Regular rate and rhythm, S1, S2 ABDOMEN: Soft, nontender, nondistended, normoactive bowel sounds, EXTREMITIES: 2+ pulses, warm, well-perfused, no edema, SCDs in place. NEUROLOGICAL: Cranial nerves II through XII grossly intact. Normal speech, gait not observed. Lines: BIPAP, RUE peripheral line, SCDs Laboratory Results - last 24 hr 05/28/17 05/28/17 05/28/17 14:20 14:21 14:40 WBC RBC Hgb Hct MCV MCH MCHC RDW Plt Count MPV Neutrophils % Lymphocytes % Monocytes % Eosinophils % Basophils % Hypochromia Platelet Estimate Basophilic Stippling Anisocytosis PT with INR INR D-Dimer Anticoagulation Therapy Puncture Site Right radial ABG pH 7.32 L ABG pCO2 at Pt Temp 78.4 H* ABG pO2 at Pt Temp 49.4 L* ABG HCO3 38.7 H ABG O2 Sat (Measured) 80.4 L ABG O2 Content 13.6 L ABG Base Excess 10.0 H Krishan Test No Result Required. O2 Delivery Device Oxygen Flow Rate 2 Vent Mode Vent Rate Mechanical Rate Pressure Support Vent Sodium Cancelled Potassium Cancelled Chloride Cancelled Carbon Dioxide Cancelled Anion Gap Cancelled BUN Cancelled Creatinine Cancelled Creat Clearance w eGFR Cancelled POC Glucometer [phone] Random Glucose Cancelled Calcium Cancelled Phosphorus Magnesium Total Bilirubin Cancelled AST Cancelled ALT Cancelled Alkaline Phosphatase Cancelled Creatine Kinase Cancelled Troponin I Cancelled B-Natriuretic Peptide Cancelled Total Protein Cancelled Albumin Cancelled TSH Urine Color Urine Appearance Urine pH Ur Specific [place] Urine Protein Urine Glucose (UA) Urine Ketones Urine Blood Urine Nitrite Urine Bilirubin Urine Urobilinogen Ur Leukocyte Esterase Urine WBC (Auto) Urine RBC (Auto) Urine Bacteria Hyaline Casts Urine Mucus Blood Type Antibody Screen 05/28/17 05/28/17 05/28/17 14:45 14:45 14:45 WBC 6.7 RBC 6.06 H Hgb 12.1 D Hct 40.5 MCV 66.8 L MCH 20.0 L MCHC 29.9 L RDW 19.2 H Plt Count 202 D MPV 8.9 D Neutrophils % 84.9 H D Lymphocytes % 4.9 L D Monocytes % 9.4 Eosinophils % 0.5 Basophils % 0.3 Hypochromia 1+ Platelet Estimate Adequate Basophilic Stippling Rare Anisocytosis 1+ PT with INR 11.50 INR 1.02 D-Dimer 441 Anticoagulation Therapy Puncture Site ABG pH ABG pCO2 at Pt Temp ABG pO2 at Pt Temp ABG HCO3 ABG O2 Sat (Measured) ABG O2 Content ABG Base Excess Krishan Test O2 Delivery Device Oxygen Flow Rate Vent Mode Vent Rate Mechanical Rate Pressure Support Vent Sodium Potassium Chloride Carbon Dioxide Anion Gap BUN Creatinine Creat Clearance w eGFR POC Glucometer Random Glucose Calcium Phosphorus Magnesium Total Bilirubin AST ALT Alkaline Phosphatase Creatine Kinase Troponin I B-Natriuretic Peptide Total Protein Albumin TSH Urine Color Urine Appearance Urine pH Ur Specific [place] Urine Protein Urine Glucose (UA) Urine Ketones Urine Blood Urine Nitrite Urine Bilirubin Urine Urobilinogen Ur Leukocyte Esterase Urine WBC (Auto) Urine RBC (Auto) Urine Bacteria Hyaline Casts Urine Mucus Blood Type Antibody Screen 05/28/17 05/28/17 05/28/17 15:00 15:24 15:30 WBC RBC Hgb Hct MCV MCH MCHC RDW Plt Count MPV Neutrophils % Lymphocytes % Monocytes % Eosinophils % Basophils % Hypochromia Platelet Estimate Basophilic Stippling Anisocytosis PT with INR INR D-Dimer Anticoagulation Therapy Puncture Site ABG pH ABG pCO2 at Pt Temp ABG pO2 at Pt Temp ABG HCO3 ABG O2 Sat (Measured) ABG O2 Content ABG Base Excess Krishan Test O2 Delivery Device Oxygen Flow Rate Vent Mode Vent Rate Mechanical Rate Pressure Support Vent Sodium 135 L Potassium 4.5 Chloride 91 L Carbon Dioxide 40 H Anion Gap 4 L BUN 24 H Creatinine 1.0 Creat Clearance w eGFR 53.21 POC Glucometer Random Glucose 132 H Calcium 8.0 L Phosphorus Magnesium 2.1 Total Bilirubin 1.5 H AST 23 ALT 22 Alkaline Phosphatase 71 Creatine Kinase 58 Troponin I 0.59 H B-Natriuretic Peptide Total Protein 7.4 Albumin 3.4 TSH Urine Color Caryn Urine Appearance Slcloudy Urine pH 5.0 Ur Specific [place] 1.020 Urine Protein 2+ H Urine Glucose (UA) Negative Urine Ketones Trace H Urine Blood 1+ H Urine Nitrite Negative Urine Bilirubin Negative Urine Urobilinogen 2.0 H Ur Leukocyte Esterase Trace Urine WBC (Auto) 14 Urine RBC (Auto) 1 Urine Bacteria Many Hyaline Casts 26 Urine Mucus Few Blood Type A POSITIVE Antibody Screen Negative 05/28/17 05/28/17 05/29/17 15:30 23:10 05:15 WBC RBC Hgb Hct MCV MCH MCHC RDW Plt Count MPV Neutrophils % Lymphocytes % Monocytes % Eosinophils % Basophils % Hypochromia Platelet Estimate Basophilic Stippling Anisocytosis PT with INR INR D-Dimer Anticoagulation Therapy Puncture Site ABG pH ABG pCO2 at Pt Temp ABG pO2 at Pt Temp ABG HCO3 ABG O2 Sat (Measured) ABG O2 Content ABG Base Excess Krishan Test O2 Delivery Device Oxygen Flow Rate Vent Mode Vent Rate Mechanical Rate Pressure Support Vent Sodium 134 L Potassium 5.1 Chloride 90 L Carbon Dioxide 40 H Anion Gap 4 L BUN 28 H Creatinine 0.9 Creat Clearance w eGFR > 60 POC Glucometer Random Glucose 268 H Calcium 7.3 L Phosphorus 4.5 Magnesium 2.1 Total Bilirubin 1.1 H D AST 18 ALT 18 Alkaline Phosphatase 60 Creatine Kinase Troponin I 0.42 H B-Natriuretic Peptide 08593.51 H Total Protein 6.7 Albumin 2.9 L TSH 0.23 L Urine Color Urine Appearance Urine pH Ur Specific [place] Urine Protein Urine Glucose (UA) Urine Ketones Urine Blood Urine Nitrite Urine Bilirubin Urine Urobilinogen Ur Leukocyte Esterase Urine WBC (Auto) Urine RBC (Auto) Urine Bacteria Hyaline Casts Urine Mucus Blood Type Antibody Screen 05/29/17 05/29/17 05/29/17 05:15 05:58 06:15 WBC RBC Hgb Hct MCV MCH MCHC RDW Plt Count MPV Neutrophils % Lymphocytes % Monocytes % Eosinophils % Basophils % Hypochromia Platelet Estimate Basophilic Stippling Anisocytosis PT with INR INR D-Dimer Anticoagulation Therapy No Result Required. Puncture Site Right radial ABG pH 7.30 L ABG pCO2 at Pt Temp 80.4 H* ABG pO2 at Pt Temp 93.9 D ABG HCO3 38.7 H ABG O2 Sat (Measured) 97.0 ABG O2 Content 15.6 ABG Base Excess 9.9 H Krishan Test Positive O2 Delivery Device No Result Required. Oxygen Flow Rate 40% Vent Mode S/t Vent Rate No Result Required. Mechanical Rate No Result Required. Pressure Support Vent No Result Required. Sodium Potassium Chloride Carbon Dioxide Anion Gap BUN Creatinine Creat Clearance w eGFR POC Glucometer [phone] Random Glucose Calcium Phosphorus Magnesium Total Bilirubin AST ALT Alkaline Phosphatase Creatine Kinase Troponin I 0.34 H B-Natriuretic Peptide Total Protein Albumin TSH Urine Color Urine Appearance Urine pH Ur Specific [place] Urine Protein Urine Glucose (UA) Urine Ketones Urine Blood Urine Nitrite Urine Bilirubin Urine Urobilinogen Ur Leukocyte Esterase Urine WBC (Auto) Urine RBC (Auto) Urine Bacteria Hyaline Casts Urine Mucus Blood Type Antibody Screen Active Medications Generic Name Dose Route Start Last Admin Trade Name Freq PRN Reason Stop Dose Admin Albuterol Sulfate 1 amp 05/28/17 23:00 05/29/17 00:05 Ventolin 0.083% Nebulizer Soln - NEB 1 amp RQID RYANN Administration Aspirin 81 mg 05/29/17 10:00 Ecotrin - PO DAILY RYANN Atorvastatin Calcium 40 mg 05/28/17 22:00 05/28/17 22:44 Lipitor - PO 40 mg HS RYANN Administration Chlorhexidine Gluconate 1 applic 05/28/17 22:00 05/28/17 22:43 Hibiclens For Decolonization - TP 1 applic HS RYANN Administration Clopidogrel Bisulfate 75 mg 05/29/17 10:00 Plavix - PO DAILY RYANN Furosemide 40 mg 05/29/17 10:00 Lasix Injection - IVPUSH DAILY RYANN Heparin Sodium (Porcine) 5,000 unit 05/28/17 22:45 05/29/17 06:09 Heparin - SQ 5,000 unit TID RYANN Administration CEFTRIAXONE 1 G/50 ML PREMIX 50 mls @ 100 mls/hr 05/28/17 22:00 05/28/17 22: 43 Ceftriaxone 1 Gm-D5w Bag IVPB 100 mls/hr HS RYANN Administration Insulin Aspart 1 vial 05/29/17 07:00 05/29/17 06:09 Novolog Vial Sliding Scale - SQ 8 units ACHS RYANN Administration Protocol Insulin Detemir 12 units 05/29/17 22:00 Levemir Vial SQ HS [facility] Methylprednisolone Sodium Succinate 40 mg 05/29/17 03:00 05/29/17 02:06 Solu-Medrol - IVPUSH 40 mg Q6H-IV RYANN Administration Metoprolol Succinate 25 mg 05/29/17 10:00 Toprol Xl - PO DAILY [facility] Mupirocin 1 applic 05/28/17 22:00 05/28/17 22:43 Bactroban Ointment (For Decolonization) - NS 06/02/17 21:59 1 applic BID RYANN Administration Oseltamivir Phosphate 75 mg 05/28/17 22:00 05/28/17 22:44 Tamiflu - PO 06/02/17 21:59 75 mg BID RYANN Administration Pantoprazole Sodium 20 mg 05/29/17 10:00 Protonix - PO DAILY RYANN Valsartan 40 mg 05/29/17 10:00 Diovan - PO DAILY [facility] ASSESSMENT/PLAN: 82 yo F with PMHx of HTN, HLD, CAD s/p CO s/p stents x 2 (2013) on plavix, CHF with EF 60% but significant apical hypokineisis and pHTN with Moderate MR, COPD on home O2 and previously on nocturnal NIV (intubations x 3), IDDM, and arthritis admitted to ICU influenza B+ and with hypoxic hypercapneic respiratory failure, now on BIPAP Pulmonary/ID: Likely COPD exacerbation 2/2 to influenza Influenza B+ COPD on home O2 (3L) Continue BIPAP-03/04, RR-21 ABGs CXR Cont Tamiflu 75mg bid Cont iv Solu-Medrol 40mg Q6H Cont iv Ceftriaxone 1g daily Ventolin nebs qid Cardio: Likely superimposed CHF- BNP- 25354.51 With demand ischemia- trops-0.42>>0.03 Hypertension Hyperlipidemia Coronary artery disease s/p stents x 2 (2013) on plavix Systolic heart failure, EF 60% but significant apical hypokineisis and pHTN with Moderate MR, Continue home Lipitor 40mg PO HS Plavix 75mg PO daily Toprol Xl 25mg PO daily iv Lasix 40mg daily ASA 81 mg PO daily Endo: IDDM Hypothyroidism- TSH 0.23 ISS ACHS BGM ACHS SQ Levemir 12 U GI: GERD Protonix 20mg PO daily Low sodium/diabetic diet FEN: Oral fluids as tolerated Monitor lytes and replete as needed Low sodium/diabetic diet Prophylaxis: On plavix Also receiving sq heparin On protonix Dispo: Transfer to tele (droplet isolation) Visit type - Emergency Visit Emergency Visit: Yes ED Registration Date: 05/28/17 Care time: The patient presented to the Emergency Department on the above date and was hospitalized for further evaluation of their emergent condition. - New Patient This patient is new to me today: Yes Date on this admission: 05/29/17 - Critical Care Critical Care patient: Yes Total Critical Care Time (in minutes): 38 Critical Care Statement: The care of this patient involved high complexity decision making to prevent further life threatening deterioration of the patient 's condition and/or to evaluate & treat vital organ system(s) failure or risk of failure. - Discharge Referral Referred to [facility] Med P.C.: No
[2017-05-29] MEDS ORDERED: PT OWN MED DRAWER 7, Y5N ONE (09:50)
[2017-05-29] MEDS: OSELTAMIVIR PHOSPHATE 75 MG CAPSULE PO SCH ×2 (09:53→23:00)
[2017-05-29] MEDS ORDERED: ASPIRIN COATED 81 MG TABLET.EC PO SCH (10:00)
[2017-05-29] MEDS ORDERED: CLOPIDOGREL BISULFATE 75 MG TABLET (FP) PO SCH (10:00)
[2017-05-29] MEDS ORDERED: metoPROLOL SUCCINATE 25 MG TAB.SR.24H (FP) PO SCH (10:00)
[2017-05-29] MEDS ORDERED: FUROSEMIDE 40 MG/4 ML INJECTABLE VIAL IVPUSH SCH (10:00)
[2017-05-29] MEDS ORDERED: VALSARTAN 40 MG TABLET (FP) PO SCH (10:00)
[2017-05-29] MEDS ORDERED: PANTOPRAZOLE 40 MG TABLET (FP) PO SCH (10:00)
[2017-05-29] MEDS: MUPIROCIN 2% TOPICAL OINTMENT FOR DECOLONIZATION NS SCH (10:07)
--- NOTE | 2017-05-29 11:01 | EKG ---
Test Reason : Blood Pressure : / mmHG Vent. Rate : 083 BPM Atrial Rate : 083 BPM P-R Int : 170 ms QRS Dur : 132 ms QT Int : 402 ms P-R-T Axes : 067 -63 061 degrees QTc Int : 472 ms POOR DATA QUALITY, INTERPRETATION MAY BE ADVERSELY AFFECTED NORMAL SINUS RHYTHM LEFT AXIS DEVIATION RIGHT BUNDLE BRANCH BLOCK MODERATE VOLTAGE CRITERIA FOR LVH, MAY BE NORMAL VARIANT INFERIOR INFARCT (CITED ON OR BEFORE 28-MAY-2017) ANTEROLATERAL INFARCT (CITED ON OR BEFORE 28-MAY-2017) ABNORMAL ECG WHEN COMPARED WITH ECG OF 28-MAY-2017 14:17, NO SIGNIFICANT CHANGE WAS FOUND Confirmed by ARACELIS PHILIP MD ([id number]) on 05/29/2017 11:01:08 AM Referred By: Confirmed By:ARACELIS PHILIP MD
--- NOTE | 2017-05-29 12:04 | PN ---
Teaching Attending Note Name of Resident: Marisol Barrera ATTENDING PHYSICIAN STATEMENT I saw and evaluated the patient. I reviewed the resident's note and discussed the case with the resident. I agree with the resident's findings and plan as documented. SUBJECTIVE: Pt seen and examined in the ICU. Remains on BiPAP but states breathing is better today. +nonproductive cough. No fevers or chills. OBJECTIVE: Last Vital Signs Temp Pulse Resp BP Pulse Ox 98.4 F 62 20 107/39 94 L 05/29/17 06:00 05/29/17 08:15 05/29/17 08:00 05/29/17 08:00 05/29/17 10:53 Intake & Output 05/26/17 05/27/17 05/28/17 05/29/17 23:59 23:59 23:59 23:59 Intake Total 350 Balance 350 Weight 100.2 kg 100.2 kg Gen: mildly tachypneic on BiPAP Heart: RRR Lung: scattered rhonchi, wheezes Abd: soft, nontender Ext: + edema CBC, BMP 05/29/17 05:15 05/29/17 05:15 Active Medications Albuterol Sulfate (Ventolin 0.083% Nebulizer Soln -) 1 amp NEB RQID [facility] Last Admin: 05/29/17 11:20 Dose: 1 amp Aspirin (Ecotrin -) 81 mg PO DAILY [facility] Last Admin: 05/29/17 09:53 Dose: 81 mg Atorvastatin Calcium (Lipitor -) 40 mg PO HS [facility] Last Admin: 05/28/17 22:44 Dose: 40 mg Clopidogrel Bisulfate (Plavix -) 75 mg PO DAILY [facility] Last Admin: 05/29/17 09:53 Dose: 75 mg Furosemide (Lasix Injection -) 40 mg IVPUSH DAILY [facility] Last Admin: 05/29/17 09:56 Dose: 40 mg Heparin Sodium (Porcine) (Heparin -) 5,000 unit SQ TID [facility] Last Admin: 05/29/17 06:09 Dose: 5,000 unit CEFTRIAXONE 1 G/50 ML PREMIX (Ceftriaxone 1 Gm-D5w Bag) 50 mls @ 100 mls/hr IVPB HS [facility] Last Admin: 05/28/17 22:43 Dose: 100 mls/hr Insulin Aspart (Novolog Vial Sliding Scale -) 1 vial SQ ACHS [facility] PRN Reason: Protocol Last Admin: 05/29/17 06:09 Dose: 8 units Insulin Detemir (Levemir Vial) 12 units SQ HS [facility] Methylprednisolone Sodium Succinate (Solu-Medrol -) 40 mg IVPUSH Q6H-IV [facility] Last Admin: 05/29/17 09:57 Dose: 40 mg Metoprolol Succinate (Toprol Xl -) 25 mg PO DAILY [facility] Last Admin: 05/29/17 09:55 Dose: 25 mg Oseltamivir Phosphate (Tamiflu -) 75 mg PO BID [facility] Stop: 06/02/17 21:59 Last Admin: 05/29/17 09:53 Dose: 75 mg Pantoprazole Sodium (Protonix -) 20 mg PO DAILY [facility] Last Admin: 05/29/17 09:54 Dose: 20 mg Valsartan (Diovan -) 40 mg PO DAILY [facility] Last Admin: 05/29/17 09:53 Dose: 40 mg ASSESSMENT AND PLAN: Acute on Chronic Hypoxic and Hypercapneic Respiratory Failure Influenza B Acute COPD Exacerbation Acute on Chronic Systolic Heart Failure CAD +Troponins likely Demand Ischemia HTN DM - continue tamiflu - on empiric antibiotics - continue medrol at current dose - inhaled bronchodilators standing and PRN - BiPAP as needed - O2 to keep SpO2 >90% - monitor ABG - continue lasix - monitor urine output, creatinine - glucose control while on systemic steroids - trend cardiac enzymes - ASA, plavix - PO as tolerated - DVT prophylaxis - can monitor on telemetry critical care time spent in reviewing chart, evaluating patient and formulating plan 35 min
--- NOTE | 2017-05-29 14:53 | EKG ---
Test Reason : Blood Pressure : / mmHG Vent. Rate : 066 BPM Atrial Rate : 066 BPM P-R Int : 156 ms QRS Dur : 142 ms QT Int : 462 ms P-R-T Axes : 064 -68 140 degrees QTc Int : 484 ms NORMAL SINUS RHYTHM LEFT AXIS DEVIATION RIGHT BUNDLE BRANCH BLOCK LEFT VENTRICULAR HYPERTROPHY WITH REPOLARIZATION ABNORMALITY INFERIOR INFARCT (CITED ON OR BEFORE 28-MAY-2017) ANTERIOR INFARCT (CITED ON OR BEFORE 28-MAY-2017) ABNORMAL ECG WHEN COMPARED WITH ECG OF 28-MAY-2017 16:30, NONSPECIFIC T WAVE ABNORMALITY HAS REPLACED INVERTED T WAVES IN ANTERIOR LEADS T WAVE INVERSION MORE EVIDENT IN LATERAL LEADS Confirmed by TAMERA PETTIT, ARACELIS ([id number]) on 05/29/2017 2:53:37 PM Referred By: Confirmed By:ARACELIS PHILIP MD
--- NOTE | 2017-05-29 16:12 | PN ---
Physical Exam: SUBJECTIVE: Patient seen and examined in ICU. OBJECTIVE: Vital Signs Period Temp Pulse Resp BP Sys/Gardner Pulse Ox Last 24 Hr 97.9 F-99 F 62-100 20-27 94-142/39-80 92-100 GENERAL: Awake, alert, and fully oriented, on ventimask, no distress LUNGS: Rhonchorous, diffuse wheezing, slightly improved air movement HEART: Regular rate and rhythm, normal S1 and S2 without murmur, rub or gallop. ABDOMEN: Soft, nontender, not distended, hypoactive bowel sounds, no guarding, no rebound, no masses. MUSCULOSKELETAL: Normal range of motion at all joints. No bony deformities or tenderness. No CVA tenderness. UPPER EXTREMITIES: 2+ pulses, warm, well-perfused. No cyanosis. No clubbing. No peripheral edema. LOWER EXTREMITIES: 2+ pulses, warm, well-perfused. No calf tenderness. No peripheral edema NEUROLOGICAL: Cranial nerves II-XII intact. Normal speech. Laboratory Results - last 24 hr 05/28/17 05/28/17 05/28/17 14:45 14:45 14:45 WBC RBC Hgb Hct MCV MCH MCHC RDW Plt Count MPV Neutrophils % Lymphocytes % Monocytes % Eosinophils % Basophils % Hypochromia 1+ Platelet Estimate Adequate Basophilic Stippling Rare Anisocytosis 1+ PT with INR 11.50 INR 1.02 D-Dimer 441 Anticoagulation Therapy Puncture Site ABG pH ABG pCO2 at Pt Temp ABG pO2 at Pt Temp ABG HCO3 ABG O2 Sat (Measured) ABG O2 Content ABG Base Excess Krishan Test O2 Delivery Device Oxygen Flow Rate Vent Mode Vent Rate Mechanical Rate Pressure Support Vent Sodium Potassium Chloride Carbon Dioxide Anion Gap BUN Creatinine Creat Clearance w eGFR POC Glucometer Random Glucose Calcium Phosphorus Magnesium Total Bilirubin AST ALT Alkaline Phosphatase Creatine Kinase Troponin I B-Natriuretic Peptide Total Protein Albumin TSH Urine Color Urine Appearance Urine pH Ur Specific Aspers Urine Protein Urine Glucose (UA) Urine Ketones Urine Blood Urine Nitrite Urine Bilirubin Urine Urobilinogen Ur Leukocyte Esterase Urine WBC (Auto) Urine RBC (Auto) Urine Bacteria Hyaline Casts Urine Mucus Blood Type Antibody Screen 05/28/17 05/28/17 05/28/17 15:00 15:24 15:30 WBC RBC Hgb Hct MCV MCH MCHC RDW Plt Count MPV Neutrophils % Lymphocytes % Monocytes % Eosinophils % Basophils % Hypochromia Platelet Estimate Basophilic Stippling Anisocytosis PT with INR INR D-Dimer Anticoagulation Therapy Puncture Site ABG pH ABG pCO2 at Pt Temp ABG pO2 at Pt Temp ABG HCO3 ABG O2 Sat (Measured) ABG O2 Content ABG Base Excess Krishan Test O2 Delivery Device Oxygen Flow Rate Vent Mode Vent Rate Mechanical Rate Pressure Support Vent Sodium 135 L Potassium 4.5 Chloride 91 L Carbon Dioxide 40 H Anion Gap 4 L BUN 24 H Creatinine 1.0 Creat Clearance w eGFR 53.21 POC Glucometer Random Glucose 132 H Calcium 8.0 L Phosphorus Magnesium 2.1 Total Bilirubin 1.5 H AST 23 ALT 22 Alkaline Phosphatase 71 Creatine Kinase 58 Troponin I 0.59 H B-Natriuretic Peptide Total Protein 7.4 Albumin 3.4 TSH Urine Color Caryn Urine Appearance Slcloudy Urine pH 5.0 Ur Specific Aspers 1.020 Urine Protein 2+ H Urine Glucose (UA) Negative Urine Ketones Trace H Urine Blood 1+ H Urine Nitrite Negative Urine Bilirubin Negative Urine Urobilinogen 2.0 H Ur Leukocyte Esterase Trace Urine WBC (Auto) 14 Urine RBC (Auto) 1 Urine Bacteria Many Hyaline Casts 26 Urine Mucus Few Blood Type A POSITIVE Antibody Screen Negative 05/28/17 05/28/17 05/29/17 15:30 23:10 05:15 WBC 5.2 RBC 5.57 H Hgb 11.2 Hct 37.3 MCV 66.9 L MCH 20.1 L MCHC 30.0 L RDW 19.1 H Plt Count 205 MPV 8.9 Neutrophils % 94.1 H Lymphocytes % 4.6 L Monocytes % 1.2 L D Eosinophils % 0.0 D Basophils % 0.1 Hypochromia Platelet Estimate Basophilic Stippling Anisocytosis PT with INR INR D-Dimer Anticoagulation Therapy Puncture Site ABG pH ABG pCO2 at Pt Temp ABG pO2 at Pt Temp ABG HCO3 ABG O2 Sat (Measured) ABG O2 Content ABG Base Excess Krishan Test O2 Delivery Device Oxygen Flow Rate Vent Mode Vent Rate Mechanical Rate Pressure Support Vent Sodium Potassium Chloride Carbon Dioxide Anion Gap BUN Creatinine Creat Clearance w eGFR POC Glucometer Random Glucose Calcium Phosphorus Magnesium Total Bilirubin AST ALT Alkaline Phosphatase Creatine Kinase Troponin I 0.42 H B-Natriuretic Peptide 69810.51 H Total Protein Albumin TSH Urine Color Urine Appearance Urine pH Ur Specific Aspers Urine Protein Urine Glucose (UA) Urine Ketones Urine Blood Urine Nitrite Urine Bilirubin Urine Urobilinogen Ur Leukocyte Esterase Urine WBC (Auto) Urine RBC (Auto) Urine Bacteria Hyaline Casts Urine Mucus Blood Type Antibody Screen 05/29/17 05/29/17 05/29/17 05:15 05:15 05:58 WBC RBC Hgb Hct MCV MCH MCHC RDW Plt Count MPV Neutrophils % Lymphocytes % Monocytes % Eosinophils % Basophils % Hypochromia Platelet Estimate Basophilic Stippling Anisocytosis PT with INR INR D-Dimer Anticoagulation Therapy Puncture Site ABG pH ABG pCO2 at Pt Temp ABG pO2 at Pt Temp ABG HCO3 ABG O2 Sat (Measured) ABG O2 Content ABG Base Excess Krishan Test O2 Delivery Device Oxygen Flow Rate Vent Mode Vent Rate Mechanical Rate Pressure Support Vent Sodium 134 L Potassium 5.1 Chloride 90 L Carbon Dioxide 40 H Anion Gap 4 L BUN 28 H Creatinine 0.9 Creat Clearance w eGFR > 60 POC Glucometer [phone] Random Glucose 268 H Calcium 7.3 L Phosphorus 4.5 Magnesium 2.1 Total Bilirubin 1.1 H D AST 18 ALT 18 Alkaline Phosphatase 60 Creatine Kinase Troponin I 0.34 H B-Natriuretic Peptide Total Protein 6.7 Albumin 2.9 L TSH 0.23 L Urine Color Urine Appearance Urine pH Ur Specific Aspers Urine Protein Urine Glucose (UA) Urine Ketones Urine Blood Urine Nitrite Urine Bilirubin Urine Urobilinogen Ur Leukocyte Esterase Urine WBC (Auto) Urine RBC (Auto) Urine Bacteria Hyaline Casts Urine Mucus Blood Type Antibody Screen 05/29/17 05/29/17 06:15 14:27 WBC RBC Hgb Hct MCV MCH MCHC RDW Plt Count MPV Neutrophils % Lymphocytes % Monocytes % Eosinophils % Basophils % Hypochromia Platelet Estimate Basophilic Stippling Anisocytosis PT with INR INR D-Dimer Anticoagulation Therapy No Result Required. Puncture Site Right radial ABG pH 7.30 L ABG pCO2 at Pt Temp 80.4 H* ABG pO2 at Pt Temp 93.9 D ABG HCO3 38.7 H ABG O2 Sat (Measured) 97.0 ABG O2 Content 15.6 ABG Base Excess 9.9 H Krishan Test Positive O2 Delivery Device No Result Required. Oxygen Flow Rate 40% Vent Mode S/t Vent Rate No Result Required. Mechanical Rate No Result Required. Pressure Support Vent No Result Required. Sodium Potassium Chloride Carbon Dioxide Anion Gap BUN Creatinine Creat Clearance w eGFR POC Glucometer [phone] Random Glucose Calcium Phosphorus Magnesium Total Bilirubin AST ALT Alkaline Phosphatase Creatine Kinase Troponin I B-Natriuretic Peptide Total Protein Albumin TSH Urine Color Urine Appearance Urine pH Ur Specific Aspers Urine Protein Urine Glucose (UA) Urine Ketones Urine Blood Urine Nitrite Urine Bilirubin Urine Urobilinogen Ur Leukocyte Esterase Urine WBC (Auto) Urine RBC (Auto) Urine Bacteria Hyaline Casts Urine Mucus Blood Type Antibody Screen Active Medications Generic Name Dose Route Start Last Admin Trade Name Chloe PRN Reason Stop Dose Admin Albuterol Sulfate 1 amp 05/28/17 23:00 05/29/17 11:20 Ventolin 0.083% Nebulizer Soln - NEB 1 amp RQID RYANN Administration Aspirin 81 mg 05/29/17 10:00 05/29/17 09:53 Ecotrin - PO 81 mg DAILY RYANN Administration Atorvastatin Calcium 40 mg 05/28/17 22:00 05/28/17 22:44 Lipitor - PO 40 mg HS RYANN Administration Clopidogrel Bisulfate 75 mg 05/29/17 10:00 05/29/17 09:53 Plavix - PO 75 mg DAILY RYANN Administration Furosemide 40 mg 05/29/17 10:00 05/29/17 09:56 Lasix Injection - IVPUSH 40 mg DAILY RYANN Administration Heparin Sodium (Porcine) 5,000 unit 05/28/17 22:45 05/29/17 14:33 Heparin - SQ 5,000 unit TID RYANN Administration CEFTRIAXONE 1 G/50 ML PREMIX 50 mls @ 100 mls/hr 05/28/17 22:00 05/28/17 22: 43 Ceftriaxone 1 Gm-D5w Bag IVPB 100 mls/hr HS RYANN Administration Insulin Aspart 1 vial 05/29/17 07:00 05/29/17 14:27 Novolog Vial Sliding Scale - SQ 10 units ACHS RYANN Administration Protocol Insulin Detemir 12 units 05/29/17 22:00 Levemir Vial SQ HS RYANN Methylprednisolone Sodium Succinate 40 mg 05/29/17 03:00 05/29/17 14:33 Solu-Medrol - IVPUSH 40 mg Q6H-IV RYANN Administration Metoprolol Succinate 25 mg 05/29/17 10:00 05/29/17 09:55 Toprol Xl - PO 25 mg DAILY RYANN Administration Oseltamivir Phosphate 75 mg 05/28/17 22:00 05/29/17 09:53 Tamiflu - PO 06/02/17 21:59 75 mg BID RYANN Administration Pantoprazole Sodium 20 mg 05/29/17 10:00 05/29/17 09:54 Protonix - PO 20 mg DAILY RYANN Administration Valsartan 40 mg 05/29/17 10:00 05/29/17 09:53 Diovan - PO 40 mg DAILY RYANN Administration ASSESSMENT/PLAN: 82 year-old female with a PMH significant for HTN, HLD, CAD s/p [place] s/p stents x 2 (2013), systolic and diastolic heart failure, COPD on home O2 (intubations x 3 ), IDDM, and arthritis. Admitted for acute hypercapnic and hypoxic respiratory failure, influenza B, COPD exacerbation, and systolic heart failure exacerbation. Acute on chronic hypercapnic and hypoxic respiratory failure, multifactorial --on venti-mask x 8 hours --repeat ABG Influenza B --Tamiflu --empiric ceftriaxone, azithromycin COPD exacerbation --albuterol nebs q6h scheduled --solumedrol 40mg q6h Acute on chronic systolic and diastolic heart failure --05/19/17 Echo: LV function mildly reduced; severe apical wall hypokinesis; apical septal wall severe hypokineses; apical lateral wall moderate hypokinesis ; moderate lateral wall hypokineses; moderate MR; mild to moderate TR; pHTN; moderate 1.1cm2 --BNP 18,353 (05/17 7,615) --Lasix IV 40mg daily Hypertension --BP stable --continue Toprol XL, Diovan Hyperlipidemia --continue Lipitor Coronary artery disease s/p [place] s/p stents --10/2013: rotational atherectomy and YURIY PCI of mLAD and diag; residual prox LCx 90-95% calcific; 30-50% LM disease --continue ASA, Toprol XL, Plavix IDDM --Levemir qhs --Novolog sliding scale GERD --protonix Hypothyroidism --check TSH Pyuria --culture pending --on ceftriaxone as above FEN Fluids: PO intake adequate Electrolytes: replete as indicated Nutrition: NPO for now, on continuous BiPAP DVT prophylaxis: on ASA, Plavix; SCDs Physical therapy Dispo: continues to require ICU level care. Full Code. Visit type - Emergency Visit Emergency Visit: Yes ED Registration Date: 05/28/17 Care time: The patient presented to the Emergency Department on the above date and was hospitalized for further evaluation of their emergent condition. - New Patient This patient is new to me today: No - Critical Care Critical Care patient: Yes Total Critical Care Time (in minutes): 40 Critical Care Statement: The care of this patient involved high complexity decision making to prevent further life threatening deterioration of the patient 's condition and/or to evaluate & treat vital organ system(s) failure or risk of failure.
[2017-05-29 20:25] LABS: ARTERIAL BLD GAS O2 SATURATION 95.2 % (90-98.9); ARTERIAL BLOOD GAS BASE EXCESS 12.2 meq/l (-2-2)
[2017-05-29 20:29] LABS: ARTERIAL BLOOD GAS PCO2 86.5 mmHg (35-45)
[2017-05-29 20:30] LABS: ALLENS TEST POSITIVE; ARTERIAL BLOOD GAS PO2 78.5 mmHg (68-100)
[2017-05-29] MEDS ORDERED: INSULIN DETEMIR 100 UNITS/ML MDV SQ SCH (22:00)
[2017-05-29] MEDS: ATORVASTATIN CA 40 MG TABLET (FP) PO SCH (22:24)
[2017-05-29] MEDS: CEFTRIAXONE 1 G/50 ML PREMIX 50 ML IVPB SCH (22:24)
[2017-05-29] MEDS: INSULIN DETEMIR 100 UNITS/ML MDV SQ SCH (22:29)
[2017-05-30] MEDS: methylPREDNISolone NA SUCC 40 MG/1 ML VIAL IVPUSH SCH ×4 (03:41→22:01)
[2017-05-30] MEDS: HEPARIN NA (PORCINE) 5,000 UNITS/ML 1ML VIAL SQ SCH ×3 (06:43→22:32)
[2017-05-30] MEDS: INSULIN SLIDING SCALE (NOVOLOG) 1 VIAL SQ SCH ×4 (06:43→22:33)
[2017-05-30] MEDS ORDERED: INSULIN (NOVOLOG) ASPART 100 UNITS/ML 10ML VIAL ONE ×2 (06:51→11:47)
[2017-05-30 07:06] LABS: ARTERIAL BLD GAS O2 SATURATION 93.3 % (90-98.9); ARTERIAL BLOOD GAS BASE EXCESS 12.3 meq/l (-2-2); ARTERIAL BLOOD GAS pH 7.31 (7.35-7.45)
[2017-05-30 07:30] LABS: HEMATOCRIT 37.7 % (32.4-45.2); HEMOGLOBIN 11.1 GM/dL (10.7-15.3); MCHC 29.6 g/dl (32.0-36.0); MEAN CELL VOLUME 66.7 fl (80-96); MEAN PLT VOLUME 8.9 fl (7.5-11.1); PLATELET COUNT 206 K/MM3 (134-434); RBC 5.64 M/mm3 (3.60-5.2); RDW 19.1 % (11.6-15.6); WHITE BLOOD COUNT 8.8 K/mm3 (4.0-10.0)
[2017-05-30 07:32] LABS: MCH 19.7 pg (25.7-33.7)
[2017-05-30] MEDS: ALBUTEROL SO4 0.083% IH SOL 2.5 MG/3 ML VIAL.NEB. NEB SCH ×4 (07:35→20:22)
[2017-05-30 07:56] LABS: ALLENS TEST POSITIVE
[2017-05-30 07:58] LABS: ARTERIAL BLOOD GAS PCO2 85.7 mmHg (35-45)
[2017-05-30 08:20] LABS: ALBUMIN 3.1 g/dl (3.4-5.0); ALK PHOS 58 U/L (45-117); ANION GAP 6 (8-16); BILIRUBIN,TOTAL 0.9 mg/dL (0.2-1.0); BLOOD UREA NITROGEN 42 mg/dL (7-18); CALCIUM 7.7 mg/dL (8.5-10.1); CHLORIDE 91 mmol/L (98-107); CO2 40 mmol/L (21-32); CREATININE 1.1 mg/dL (0.55-1.02); GLUCOSE,RANDOM 257 mg/dL (74-106); MAGNESIUM 2.4 mg/dL (1.8-2.4); PHOSPHOROUS 4.3 mg/dL (2.5-4.9); POTASSIUM 5.1 mmol/L (3.5-5.1); SGOT/AST 15 U/L (15-37); SGPT/ALT 18 U/L (12-78); SODIUM 137 mmol/L (136-145); TOT PROT 6.9 g/dl (6.4-8.2)
[2017-05-30] MEDS: FUROSEMIDE 40 MG/4 ML INJECTABLE VIAL IVPUSH SCH (09:26)
[2017-05-30] MEDS: PANTOPRAZOLE 40 MG TABLET (FP) PO SCH (09:27)
[2017-05-30] MEDS: ASPIRIN COATED 81 MG TABLET.EC PO SCH (09:27)
[2017-05-30] MEDS: VALSARTAN 40 MG TABLET (FP) PO SCH (09:27)
[2017-05-30] MEDS: CLOPIDOGREL BISULFATE 75 MG TABLET (FP) PO SCH (09:28)
[2017-05-30] MEDS: metoPROLOL SUCCINATE 25 MG TAB.SR.24H (FP) PO SCH (09:28)
[2017-05-30] MEDS: OSELTAMIVIR PHOSPHATE 75 MG CAPSULE PO SCH ×2 (09:29→22:34)
--- NOTE | 2017-05-30 09:34 | PN ---
Physical Exam: SUBJECTIVE: Patient seen and examined OBJECTIVE: Vital Signs Period Temp Pulse Resp BP Sys/Gardner Pulse Ox Last 24 Hr 98.1 F-99.0 F 65-73 20-24 94-128/30-71 92-97 GENERAL: Awake, alert, and fully oriented, on ventimask, no distress LUNGS: Rhonchorous, diffuse wheezing HEART: Regular rate and rhythm, normal S1 and S2 without murmur, rub or gallop. ABDOMEN: Soft, nontender, not distended, hypoactive bowel sounds, no guarding, no rebound, no masses. MUSCULOSKELETAL: Normal range of motion at all joints. No bony deformities or tenderness. No CVA tenderness. UPPER EXTREMITIES: 2+ pulses, warm, well-perfused. No cyanosis. No clubbing. No peripheral edema. LOWER EXTREMITIES: 2+ pulses, warm, well-perfused. No calf tenderness. No peripheral edema NEUROLOGICAL: Cranial nerves II-XII intact. Normal speech. Laboratory Results - last 24 hr 05/29/17 05/29/17 05/29/17 14:27 16:00 17:20 WBC RBC Hgb Hct MCV MCH MCHC RDW Plt Count MPV Total Counted Neutrophils % Neutrophils % (Manual) Band Neutrophils % Lymphocytes % Lymphocytes % (Manual) Monocytes % (Manual) Eosinophils % (Manual) Basophils % (Manual) Myelocytes % (Man) Promyelocytes % (Man) Blast Cells % (Manual) Metamyelocytes Differential Comment Hypersegmented Neuts Plasma Cells Smudge Cells Other Cell Type Hypochromia Toxic Granulation Dohle Bodies Polychromasia Poikilocytosis Basophilic Stippling Anisocytosis Microcytosis Macrocytosis Spherocytes Siderocytes Sickle Cells Target Cells Tear Drop Cells Ovalocytes Stomatocytes Helmet Cells [place] Bodies [place] Rings Marcia Cells Acanthocytes (Spur) Rouleaux Fragmented RBCs Schistocytes Puncture Site ABG pH ABG pCO2 at Pt Temp ABG pO2 at Pt Temp ABG HCO3 ABG O2 Sat (Measured) ABG O2 Content ABG Base Excess Krishan Test O2 Delivery Device Oxygen Flow Rate Vent Mode Vent Rate Mechanical Rate Pressure Support Vent Sodium Potassium Chloride Carbon Dioxide Anion Gap BUN Creatinine Creat Clearance w eGFR POC Glucometer [phone] Random Glucose Calcium Phosphorus Magnesium Total Bilirubin AST ALT Alkaline Phosphatase Creatine Kinase Troponin I 0.37 H Total Protein Albumin 02/05/1505/29/17 05/30/17 20:10 22:26 05:47 WBC RBC Hgb Hct MCV MCH MCHC RDW Plt Count MPV Total Counted Neutrophils % Neutrophils % (Manual) Band Neutrophils % Lymphocytes % Lymphocytes % (Manual) Monocytes % (Manual) Eosinophils % (Manual) Basophils % (Manual) Myelocytes % (Man) Promyelocytes % (Man) Blast Cells % (Manual) Metamyelocytes Differential Comment Hypersegmented Neuts Plasma Cells Smudge Cells Other Cell Type Hypochromia Toxic Granulation Dohle Bodies Polychromasia Poikilocytosis Basophilic Stippling Anisocytosis Microcytosis Macrocytosis Spherocytes Siderocytes Sickle Cells Target Cells Tear Drop Cells Ovalocytes Stomatocytes Helmet Cells [place] Bodies [place] Rings [place] Cells Acanthocytes (Spur) Rouleaux Fragmented RBCs Schistocytes Puncture Site Right radial ABG pH 7.30 L ABG pCO2 at Pt Temp 86.5 H* ABG pO2 at Pt Temp 78.5 ABG HCO3 41.1 H* ABG O2 Sat (Measured) 95.2 ABG O2 Content 14.0 L ABG Base Excess 12.2 H Krishan Test Positive O2 Delivery Device Vent mask Oxygen Flow Rate 35% Vent Mode Vent Rate Mechanical Rate Pressure Support Vent Sodium Potassium Chloride Carbon Dioxide Anion Gap BUN Creatinine Creat Clearance w eGFR POC Glucometer 189 261 Random Glucose Calcium Phosphorus Magnesium Total Bilirubin AST ALT Alkaline Phosphatase Creatine Kinase Troponin I Total Protein Albumin 05/30/17 05/30/17 05/30/17 06:18 06:18 06:18 WBC 8.8 D RBC 5.64 H Hgb 11.1 Hct 37.7 MCV 66.7 L MCH 19.7 L MCHC 29.6 L RDW 19.1 H Plt Count 206 MPV 8.9 Total Counted Cancelled Neutrophils % No Result Required. Neutrophils % (Manual) Cancelled Band Neutrophils % Cancelled Lymphocytes % No Result Required. Lymphocytes % (Manual) Cancelled Monocytes % (Manual) Cancelled Eosinophils % (Manual) Cancelled Basophils % (Manual) Cancelled Myelocytes % (Man) Cancelled Promyelocytes % (Man) Cancelled Blast Cells % (Manual) Cancelled Metamyelocytes Cancelled Differential Comment Cancelled Hypersegmented Neuts Cancelled Plasma Cells Cancelled Smudge Cells Cancelled Other Cell Type Cancelled Hypochromia Cancelled Toxic Granulation Cancelled Dohle Bodies Cancelled Polychromasia Cancelled Poikilocytosis Cancelled Basophilic Stippling Cancelled Anisocytosis Cancelled Microcytosis Cancelled Macrocytosis Cancelled Spherocytes Cancelled Siderocytes Cancelled Sickle Cells Cancelled Target Cells Cancelled Tear Drop Cells Cancelled Ovalocytes Cancelled Stomatocytes Cancelled Helmet Cells Cancelled [place] Bodies Cancelled [place] Rings Cancelled [place] Cells Cancelled Acanthocytes (Spur) Cancelled Rouleaux Cancelled Fragmented RBCs Cancelled Schistocytes Cancelled Puncture Site ABG pH ABG pCO2 at Pt Temp ABG pO2 at Pt Temp ABG HCO3 ABG O2 Sat (Measured) ABG O2 Content ABG Base Excess Krishan Test O2 Delivery Device Oxygen Flow Rate Vent Mode Vent Rate Mechanical Rate Pressure Support Vent Sodium 137 Potassium 5.1 Chloride 91 L Carbon Dioxide 40 H Anion Gap 6 L BUN 42 H Creatinine 1.1 H Creat Clearance w eGFR 47.67 POC Glucometer Random Glucose 257 H Calcium 7.7 L Phosphorus 4.3 Magnesium 2.4 Total Bilirubin 0.9 AST 15 ALT 18 Alkaline Phosphatase 58 Creatine Kinase 32 Troponin I 0.31 H Total Protein 6.9 Albumin 3.1 L 05/30/17 06:45 WBC RBC Hgb Hct MCV MCH MCHC RDW Plt Count MPV Total Counted Neutrophils % Neutrophils % (Manual) Band Neutrophils % Lymphocytes % Lymphocytes % (Manual) Monocytes % (Manual) Eosinophils % (Manual) Basophils % (Manual) Myelocytes % (Man) Promyelocytes % (Man) Blast Cells % (Manual) Metamyelocytes Differential Comment Hypersegmented Neuts Plasma Cells Smudge Cells Other Cell Type Hypochromia Toxic Granulation Dohle Bodies Polychromasia Poikilocytosis Basophilic Stippling Anisocytosis Microcytosis Macrocytosis Spherocytes Siderocytes Sickle Cells Target Cells Tear Drop Cells Ovalocytes Stomatocytes Helmet Cells [place] Bodies [place] Rings [place] Cells Acanthocytes (Spur) Rouleaux Fragmented RBCs Schistocytes Puncture Site Right radial ABG pH 7.31 L ABG pCO2 at Pt Temp 85.7 H* ABG pO2 at Pt Temp 72.0 ABG HCO3 41.4 H* ABG O2 Sat (Measured) 93.3 ABG O2 Content 14.3 L ABG Base Excess 12.3 H Krishan Test Positive O2 Delivery Device Bipap Oxygen Flow Rate 40% Vent Mode S/t Vent Rate 16 Mechanical Rate Bipab Pressure Support Vent 12/7 Sodium Potassium Chloride Carbon Dioxide Anion Gap BUN Creatinine Creat Clearance w eGFR POC Glucometer Random Glucose Calcium Phosphorus Magnesium Total Bilirubin AST ALT Alkaline Phosphatase Creatine Kinase Troponin I Total Protein Albumin Active Medications Generic Name Dose Route Start Last Admin Trade Name Chloe PRN Reason Stop Dose Admin Albuterol Sulfate 1 amp 05/29/17 20:00 05/30/17 07:35 Ventolin 0.083% Nebulizer Soln - NEB 1 amp RQID RYANN Administration Aspirin 81 mg 05/30/17 10:00 05/30/17 09:27 Ecotrin - PO 81 mg DAILY RYANN Administration Atorvastatin Calcium 40 mg 05/29/17 22:00 05/29/17 22:24 Lipitor - PO 40 mg HS RYANN Administration Clopidogrel Bisulfate 75 mg 05/30/17 10:00 05/30/17 09:28 Plavix - PO 75 mg DAILY RYANN Administration Furosemide 40 mg 05/30/17 10:00 05/30/17 09:26 Lasix Injection - IVPUSH 40 mg DAILY RYANN Administration Heparin Sodium (Porcine) 5,000 unit 05/29/17 22:00 05/30/17 06:43 Heparin - SQ 5,000 unit TID RYANN Administration CEFTRIAXONE 1 G/50 ML PREMIX 50 mls @ 100 mls/hr 05/29/17 22:00 05/29/17 22: 24 Ceftriaxone 1 Gm-D5w Bag IVPB 100 mls/hr HS RYANN Administration Azithromycin 500 mg/ Dextrose 250 mls @ 250 mls/hr 05/30/17 10:00 IVPB 06/02/17 10:59 DAILY [facility] Insulin Aspart 1 vial 05/29/17 22:00 05/30/17 06:43 Novolog Vial Sliding Scale - SQ 6 units ACHS RYANN Administration Protocol Insulin Detemir 12 units 05/29/17 22:00 05/29/17 22:29 Levemir Vial SQ 12 units HS RYANN Administration Methylprednisolone Sodium Succinate 40 mg 05/29/17 21:00 05/30/17 09:26 Solu-Medrol - IVPUSH 40 mg Q6H-IV RYANN Administration Metoprolol Succinate 25 mg 05/30/17 10:00 05/30/17 09:28 Toprol Xl - PO 25 mg DAILY RYANN Administration Oseltamivir Phosphate 75 mg 05/29/17 22:00 05/30/17 09:29 Tamiflu - PO 06/02/17 21:59 75 mg BID RYANN Administration Pantoprazole Sodium 20 mg 05/30/17 10:00 05/30/17 09:27 Protonix - PO 20 mg DAILY RYANN Administration Valsartan 40 mg 05/30/17 10:00 05/30/17 09:27 Diovan - PO 40 mg DAILY RAYNN Administration ASSESSMENT/PLAN: 82 year-old female with a PMH significant for HTN, HLD, CAD s/p [place] s/p stents x 2 (2013), systolic and diastolic heart failure, COPD on home O2 (intubations x 3 ), IDDM, and arthritis. Admitted for acute hypercapnic and hypoxic respiratory failure, influenza B, COPD exacerbation, and systolic heart failure exacerbation. Acute on chronic hypercapnic and hypoxic respiratory failure, multifactorial --on venti-mask --still hypercapnic but patient is comfortable, mentating well --BiPAP at night and PRN Influenza B --Tamiflu --empiric ceftriaxone, azithromycin COPD exacerbation --albuterol nebs q6h scheduled --solumedrol 40mg q6h Acute on chronic systolic and diastolic heart failure --05/19/17 Echo: LV function mildly reduced; severe apical wall hypokinesis; apical septal wall severe hypokineses; apical lateral wall moderate hypokinesis ; moderate lateral wall hypokineses; moderate MR; mild to moderate TR; pHTN; moderate 1.1cm2 --BNP 18,353 (05/17 7,615) --Lasix IV 40mg daily Hypertension --BP stable --continue Toprol XL, Diovan Hyperlipidemia --continue Lipitor Coronary artery disease s/p [place] s/p stents --10/2013: rotational atherectomy and YURIY PCI of mLAD and diag; residual prox LCx 90-95% calcific; 30-50% LM disease --continue ASA, Toprol XL, Plavix IDDM --Levemir qhs --Novolog sliding scale GERD --protonix Hypothyroidism --check TSH [id number] UTI --on ceftriaxone as above FEN Fluids: PO intake adequate Electrolytes: replete as indicated Nutrition: diabetic low sodium DVT prophylaxis: subq heparin, oob, ambulation Physical therapy Dispo: continues to require inpatient care. Full Code. Visit type - Emergency Visit Emergency Visit: Yes ED Registration Date: 05/28/17 Care time: The patient presented to the Emergency Department on the above date and was hospitalized for further evaluation of their emergent condition. - New Patient This patient is new to me today: Yes Date on this admission: 05/30/17 - Critical Care Critical Care patient: No
[2017-05-30] MEDS: AZITHROMYCIN IVPB 500 MG in DEXTROSE 5%-WATER - 250 ML IVPB SCH (12:08)
--- NOTE | 2017-05-30 12:50 | PN ---
Progress Note, Physician History of Present Illness: pulmonary alert on nasal o2,+congestion,+cough (yellow sputum) - Current Medication List Current Medications: Active Medications Albuterol Sulfate (Ventolin 0.083% Nebulizer Soln -) 1 amp NEB RQID [facility] Last Admin: 05/30/17 11:00 Dose: 1 amp Aspirin (Ecotrin -) 81 mg PO DAILY [facility] Last Admin: 05/30/17 09:27 Dose: 81 mg Atorvastatin Calcium (Lipitor -) 40 mg PO HS [facility] Last Admin: 05/29/17 22:24 Dose: 40 mg Clopidogrel Bisulfate (Plavix -) 75 mg PO DAILY [facility] Last Admin: 05/30/17 09:28 Dose: 75 mg Furosemide (Lasix Injection -) 40 mg IVPUSH DAILY [facility] Last Admin: 05/30/17 09:26 Dose: 40 mg Heparin Sodium (Porcine) (Heparin -) 5,000 unit SQ TID [facility] Last Admin: 05/30/17 06:43 Dose: 5,000 unit CEFTRIAXONE 1 G/50 ML PREMIX (Ceftriaxone 1 Gm-D5w Bag) 50 mls @ 100 mls/hr IVPB [facility] Last Admin: 05/29/17 22:24 Dose: 100 mls/hr Azithromycin 500 mg/ Dextrose 250 mls @ 250 mls/hr IVPB DAILY [facility] Stop: 06/02/17 10:59 Last Admin: 05/30/17 12:08 Dose: 250 mls/hr Insulin Aspart (Novolog Vial Sliding Scale -) 1 vial SQ ACHS [facility] PRN Reason: Protocol Last Admin: 05/30/17 12:08 Dose: 10 units Insulin Detemir (Levemir Vial) 12 units SQ [facility] Last Admin: 05/29/17 22:29 Dose: 12 units Methylprednisolone Sodium Succinate (Solu-Medrol -) 40 mg IVPUSH Q6H-IV [facility] Last Admin: 05/30/17 09:26 Dose: 40 mg Metoprolol Succinate (Toprol Xl -) 25 mg PO DAILY [facility] Last Admin: 05/30/17 09:28 Dose: 25 mg Oseltamivir Phosphate (Tamiflu -) 75 mg PO BID [facility] Stop: 06/02/17 21:59 Last Admin: 05/30/17 09:29 Dose: 75 mg Pantoprazole Sodium (Protonix -) 20 mg PO DAILY [facility] Last Admin: 05/30/17 09:27 Dose: 20 mg Valsartan (Diovan -) 40 mg PO DAILY [facility] Last Admin: 05/30/17 09:27 Dose: 40 mg - Objective Vital Signs: Vital Signs Temperature 98.9 F 05/30/17 06:00 Pulse Rate 73 05/30/17 06:00 Respiratory Rate 20 05/30/17 06:00 Blood Pressure 127/59 05/30/17 06:00 O2 Sat by Pulse Oximetry (%) 94 L 05/30/17 11:00 Constitutional: Yes: Well Nourished, Calm Eyes: Yes: WNL HENT: Yes: WNL Neck: Yes: WNL Cardiovascular: Yes: Regular Rate and Rhythm, S1, S2 Respiratory: Yes: Rhonchi, Wheezes (bilateral rhonchi/wheezes) Gastrointestinal: Yes: Normal Bowel Sounds, Soft Extremities: Yes: WNL Edema: No Labs: CBC, BMP 05/30/17 06:18 05/30/17 06:18 INR, PTT INR 1.02 (0.82-1.09) 05/28/17 14:45 Problem List - Problems (1) Acute on chronic respiratory failure with hypoxia and hypercapnia Code(s): J96.21 - ACUTE AND CHRONIC RESPIRATORY FAILURE WITH HYPOXIA; J96.22 - ACUTE AND CHRONIC RESPIRATORY FAILURE WITH HYPERCAPNIA (2) Influenza B Code(s): J10.1 - FLU DUE TO OTH IDENT INFLUENZA VIRUS W OTH RESP MANIFEST (3) Shortness of breath Code(s): R06.02 - SHORTNESS OF BREATH (4) ASHD (arteriosclerotic heart disease) Code(s): I25.10 - ATHSCL HEART DISEASE OF [place] CORONARY ARTERY W/O ANG PCTRS (5) HTN (hypertension) Code(s): I10 - ESSENTIAL (PRIMARY) HYPERTENSION Qualifiers: Hypertension type: essential hypertension Qualified Code(s): I10 - Essential (primary) hypertension (6) History of coronary artery stent placement Code(s): Z95.5 - PRESENCE OF CORONARY ANGIOPLASTY IMPLANT AND GRAFT (7) Respiratory distress Code(s): R06.00 - DYSPNEA, UNSPECIFIED (8) COPD exacerbation Code(s): J44.1 - CHRONIC OBSTRUCTIVE PULMONARY DISEASE W (ACUTE) EXACERBATION (9) CHF exacerbation Code(s): I50.9 - HEART FAILURE, UNSPECIFIED Qualifiers: Congestive heart failure type: combined Qualified Code(s): I50.43 - Acute on chronic combined systolic (congestive) and diastolic (congestive) heart failure Assessment/Plan ASSESSMENT AND PLAN: Acute on Chronic Hypoxic and Hypercapneic Respiratory Failure Influenza B Acute COPD Exacerbation Acute on Chronic Systolic Heart Failure CAD +Troponins likely Demand Ischemia HTN DM - tamiflu - antibiotics - continue medrol at current dose - inhaled bronchodilators standing and PRN - BiPAP as needed - O2 to keep SpO2 >90% - monitor ABGs - lasix - monitor urine output, creatinine - glucose control while on systemic steroids - trend cardiac enzymes - ASA, plavix - PO as tolerated - DVT prophylaxis DR CAAL
[2017-05-30 14:46] LABS: ARTERIAL BLD GAS O2 SATURATION 94.4 % (90-98.9); ARTERIAL BLOOD GAS BASE EXCESS 12.8 meq/l (-2-2); ARTERIAL BLOOD GAS PO2 77.4 mmHg (68-100); ARTERIAL BLOOD GAS pH 7.33 (7.35-7.45)
[2017-05-30 15:03] LABS: ALLENS TEST POSITIVE; ARTERIAL BLOOD GAS PCO2 80.8 mmHg (35-45)
[2017-05-30] MEDS ORDERED: PT OWN MED DRAWER 7, Y5N ONE (20:46)
[2017-05-30] MEDS: CEFTRIAXONE 1 G/50 ML PREMIX 50 ML IVPB SCH (22:32)
[2017-05-30] MEDS: ATORVASTATIN CA 40 MG TABLET (FP) PO SCH (22:33)
[2017-05-30] MEDS: INSULIN DETEMIR 100 UNITS/ML MDV SQ SCH (22:33)
[2017-05-31] MEDS: methylPREDNISolone NA SUCC 40 MG/1 ML VIAL IVPUSH SCH ×4 (02:33→21:49)
[2017-05-31] MEDS: HEPARIN NA (PORCINE) 5,000 UNITS/ML 1ML VIAL SQ SCH ×3 (06:31→21:49)
[2017-05-31] MEDS: INSULIN SLIDING SCALE (NOVOLOG) 1 VIAL SQ SCH ×4 (06:34→22:11)
[2017-05-31] MEDS ORDERED: INSULIN (NOVOLOG) ASPART 100 UNITS/ML 10ML VIAL ONE (06:48)
[2017-05-31 08:09] LABS: HEMATOCRIT 38.3 % (32.4-45.2); HEMOGLOBIN 11.4 GM/dL (10.7-15.3); MCHC 29.8 g/dl (32.0-36.0); MEAN CELL VOLUME 66.6 fl (80-96); MEAN PLT VOLUME 8.8 fl (7.5-11.1); PLATELET COUNT 210 K/MM3 (134-434); RBC 5.75 M/mm3 (3.60-5.2); RDW 19.2 % (11.6-15.6); WHITE BLOOD COUNT 6.5 K/mm3 (4.0-10.0)
[2017-05-31] MEDS: ALBUTEROL SO4 0.083% IH SOL 2.5 MG/3 ML VIAL.NEB. NEB SCH ×4 (08:35→20:00)
[2017-05-31 08:55] LABS: ALBUMIN 3.1 g/dl (3.4-5.0); ANION GAP 4 (8-16); BILIRUBIN,TOTAL 0.7 mg/dL (0.2-1.0); BLOOD UREA NITROGEN 46 mg/dL (7-18); CHLORIDE 91 mmol/L (98-107); CO2 44 mmol/L (21-32); CREATININE 1.1 mg/dL (0.55-1.02); MAGNESIUM 2.5 mg/dL (1.8-2.4); POTASSIUM 4.9 mmol/L (3.5-5.1); SGOT/AST 15 U/L (15-37); SGPT/ALT 18 U/L (12-78); SODIUM 139 mmol/L (136-145); TOT PROT 7.3 g/dl (6.4-8.2)
[2017-05-31 08:56] LABS: ALK PHOS 61 U/L (45-117)
[2017-05-31 09:22] LABS: MCH 19.9 pg (25.7-33.7)
[2017-05-31] MEDS: FUROSEMIDE 40 MG/4 ML INJECTABLE VIAL IVPUSH SCH (10:15)
[2017-05-31] MEDS: CLOPIDOGREL BISULFATE 75 MG TABLET (FP) PO SCH (10:16)
[2017-05-31] MEDS: metoPROLOL SUCCINATE 25 MG TAB.SR.24H (FP) PO SCH (10:16)
[2017-05-31] MEDS: ASPIRIN COATED 81 MG TABLET.EC PO SCH (10:16)
[2017-05-31] MEDS: OSELTAMIVIR PHOSPHATE 75 MG CAPSULE PO SCH ×2 (10:16→21:49)
[2017-05-31] MEDS: PANTOPRAZOLE 40 MG TABLET (FP) PO SCH (10:16)
[2017-05-31] MEDS: VALSARTAN 40 MG TABLET (FP) PO SCH (10:16)
[2017-05-31] MEDS: AZITHROMYCIN IVPB 500 MG in DEXTROSE 5%-WATER - 250 ML IVPB SCH (10:17)
[2017-05-31 10:56] LABS: GLUCOSE,RANDOM 306 mg/dL (74-106)
[2017-05-31] MEDS ORDERED: INSULIN (NOVOLOG) ASPART 100 UNITS/ML 10ML VIAL SQ ONE ×2 (12:35→17:45)
--- NOTE | 2017-05-31 13:10 | PN ---
Progress Note (short form) - Note Progress Note: PULMONARY Still with shortness of breath, cough and wheezing. Last Vital Signs Temp Pulse Resp BP Pulse Ox 98.4 F 88 20 137/71 98 05/31/17 10:06 05/31/17 10:06 05/31/17 10:06 05/31/17 10:06 05/31/17 10:00 Gen: tachypneic with speaking Heart: RRR Lung: bilateral rhonchi, wheezes Abd: soft, nontender Ext: no edema CBC, BMP 05/31/17 06:45 05/31/17 06:45 Active Medications Albuterol Sulfate (Ventolin 0.083% Nebulizer Soln -) 1 amp NEB RQID [facility] Last Admin: 05/31/17 11:33 Dose: 1 amp Aspirin (Ecotrin -) 81 mg PO DAILY [facility] Last Admin: 05/31/17 10:16 Dose: 81 mg Atorvastatin Calcium (Lipitor -) 40 mg PO HS [facility] Last Admin: 05/30/17 22:33 Dose: 40 mg Clopidogrel Bisulfate (Plavix -) 75 mg PO DAILY [facility] Last Admin: 05/31/17 10:16 Dose: 75 mg Furosemide (Lasix Injection -) 40 mg IVPUSH DAILY [facility] Last Admin: 05/31/17 10:15 Dose: 40 mg Heparin Sodium (Porcine) (Heparin -) 5,000 unit SQ TID [facility] Last Admin: 05/31/17 06:31 Dose: 5,000 unit CEFTRIAXONE 1 G/50 ML PREMIX (Ceftriaxone 1 Gm-D5w Bag) 50 mls @ 100 mls/hr IVPB [facility] Last Admin: 05/30/17 22:32 Dose: 100 mls/hr Azithromycin 500 mg/ Dextrose 250 mls @ 250 mls/hr IVPB DAILY [facility] Stop: 06/02/17 10:59 Last Admin: 05/31/17 10:17 Dose: 250 mls/hr Insulin Aspart (Novolog Vial Sliding Scale -) 1 vial SQ ACHS [facility] PRN Reason: Protocol Last Admin: 05/31/17 12:11 Dose: Not Given Insulin Detemir (Levemir Vial) 12 units SQ HS [facility] Last Admin: 05/30/17 22:33 Dose: 12 units Methylprednisolone Sodium Succinate (Solu-Medrol -) 40 mg IVPUSH Q6H-IV [facility] Last Admin: 05/31/17 10:15 Dose: 40 mg Metoprolol Succinate (Toprol Xl -) 25 mg PO DAILY [facility] Last Admin: 05/31/17 10:16 Dose: 25 mg Oseltamivir Phosphate (Tamiflu -) 75 mg PO BID [facility] Stop: 06/02/17 21:59 Last Admin: 05/31/17 10:16 Dose: 75 mg Pantoprazole Sodium (Protonix -) 20 mg PO DAILY [facility] Last Admin: 05/31/17 10:16 Dose: 20 mg Valsartan (Diovan -) 40 mg PO DAILY [facility] Last Admin: 05/31/17 10:16 Dose: 40 mg A/P Acute on Chronic Hypoxic and Hypercapneic Respiratory Failure Influenza B Acute COPD Exacerbation Acute on Chronic Systolic Heart Failure CAD +Troponins likely Demand Ischemia HTN DM - continue tamiflu - on empiric antibiotics - continue medrol at current dose - inhaled bronchodilators standing and PRN - BiPAP as needed - O2 to keep SpO2 >90% - monitor ABG - continue lasix - monitor urine output, creatinine - glucose control while on systemic steroids - trend cardiac enzymes - ASA, plavix - PO as tolerated - DVT prophylaxis
[2017-05-31 14:46] LABS: ANISOCYTOSIS 2+
[2017-05-31] MEDS ORDERED: PT OWN MED DRAWER 7, Y5N ONE ×2 (15:47→17:59)
--- NOTE | 2017-05-31 17:36 | PN ---
Physical Exam: SUBJECTIVE: Patient seen and examined. She has chest pain when she coughs, shes still sob when she moves around OBJECTIVE: Vital Signs Period Temp Pulse Resp BP Sys/Gardner Pulse Ox Last 24 Hr 98.1 F-99 F 67-88 20-22 125-140/52-71 96-99 PE Neuro: alert, awake, cn 2-12intact Pulm: diminished, wheezing, nc, dyspnea w conversation CV: s1 s2 rrr Abd: s nt nd + bs Ext: warm no le edema Laboratory Results - last 24 hr 05/31/17 05/31/17 06:45 06:45 WBC 6.5 RBC 5.75 H Hgb 11.4 Hct 38.3 MCV 66.6 L MCH 19.9 L MCHC 29.8 L RDW 19.2 H Plt Count 210 MPV 8.8 Neutrophils % No Result Required. Neutrophils % (Manual) 77.0 Band Neutrophils % 15.0 Lymphocytes % No Result Required. Lymphocytes % (Manual) 5.0 L Monocytes % (Manual) 2 L Metamyelocytes 1 Hypochromia 2+ Polychromasia 2+ Anisocytosis 2+ Microcytosis 2+ Sodium 139 Potassium 4.9 Chloride 91 L Carbon Dioxide 44 H Anion Gap 4 L BUN 46 H Creatinine 1.1 H Creat Clearance w eGFR 47.67 POC Glucometer Random Glucose 306 H* Calcium 8.0 L Magnesium 2.5 H Total Bilirubin 0.7 D AST 15 ALT 18 Alkaline Phosphatase 61 Total Protein 7.3 Albumin 3.1 L Active Medications Generic Name Dose Route Start Last Admin Trade Name Javedq PRN Reason Stop Dose Admin Albuterol Sulfate 1 amp 05/29/17 20:00 05/31/17 11:33 Ventolin 0.083% Nebulizer Soln - NEB 1 amp RQID [facility] Administration Aspirin 81 mg 05/30/17 10:00 05/31/17 10:16 Ecotrin - PO 81 mg DAILY [facility] Administration Atorvastatin Calcium 40 mg 05/29/17 22:00 05/30/17 22:33 Lipitor - PO 40 mg HS [facility] Administration Clopidogrel Bisulfate 75 mg 05/30/17 10:00 05/31/17 10:16 Plavix - PO 75 mg DAILY [facility] Administration Furosemide 40 mg 05/30/17 10:00 05/31/17 10:15 Lasix Injection - IVPUSH 40 mg DAILY [facility] Administration Heparin Sodium (Porcine) 5,000 unit 05/29/17 22:00 05/31/17 14:35 Heparin - SQ 5,000 unit TID [facility] Administration CEFTRIAXONE 1 G/50 ML PREMIX 50 mls @ 100 mls/hr 05/29/17 22:00 05/30/17 22: 32 Ceftriaxone 1 Gm-D5w Bag IVPB 100 mls/hr HS [facility] Administration Azithromycin 500 mg/ Dextrose 250 mls @ 250 mls/hr 05/30/17 10:00 05/31/17 10 :17 IVPB 06/02/17 10:59 250 mls/hr DAILY [facility] Administration Insulin Aspart 1 vial 05/29/17 22:00 05/31/17 16:52 Novolog Vial Sliding Scale - SQ 15 units ACHS [facility] Administration Protocol Insulin Aspart 15 units 05/31/17 17:34 Novolog Vial SQ 05/31/17 17:35 ONCE ONE Protocol Insulin Detemir 12 units 05/29/17 22:00 05/30/17 22:33 Levemir Vial SQ 12 units HS [facility] Administration Methylprednisolone Sodium Succinate 40 mg 05/29/17 21:00 05/31/17 14:35 Solu-Medrol - IVPUSH 40 mg Q6H-IV [facility] Administration Metoprolol Succinate 25 mg 05/30/17 10:00 05/31/17 10:16 Toprol Xl - PO 25 mg DAILY [facility] Administration Oseltamivir Phosphate 75 mg 05/29/17 22:00 05/31/17 10:16 Tamiflu - PO 06/02/17 21:59 75 mg BID [facility] Administration Pantoprazole Sodium 20 mg 05/30/17 10:00 05/31/17 10:16 Protonix - PO 20 mg DAILY [facility] Administration Valsartan 40 mg 05/30/17 10:00 05/31/17 10:16 Diovan - PO 40 mg DAILY [facility] Administration Imaging: - Echo: LV function mildly reduced; severe apical wall hypokinesis; apical septal wall severe hypokineses; apical lateral wall moderate hypokinesis; moderate lateral wall hypokineses; moderate MR; mild to moderate TR; pHTN; moderate 1.1cm2 Assessment: 82 year-old female with a PMH significant for HTN, HLD, CAD s/p SC s /p stents x 2 (2013), systolic and diastolic heart failure, COPD on home O2 ( intubations x 3), IDDM, and arthritis. Admitted for acute hypercapnic and hypoxic respiratory failure, influenza B, COPD exacerbation, and systolic heart failure exacerbation. Plan: 1. Acute on chronic hypercapnic and hypoxic respiratory failure, multifactorial - Stable on NC - BiPAP at night and PRN - Continue steroids 2. Kelbsiella UTI - Resistant to ceftriaxone, will stop - Start zosyn 2.25 q8hr 3. Influenza B - Tamiflu - Stop ceftriaxone/azithro 4. Acute COPD exacerbation - Albuterol nebs q6h scheduled - Solumedrol 40mg q6h 5. Acute on chronic systolic and diastolic heart failure - Weight elevated, however on steroids - Lasix IV 40mg daily 6. Hypertension - BP stable - Continue Toprol XL, Diovan 7. Hyperlipidemia - Continue Lipitor 8. CAD s/p SC s/p stents - 10/2013: rotational atherectomy and YURIY PCI of mLAD and diag; residual prox LCx 90-95% calcific; 30-50% LM disease - Continue ASA, Toprol XL, Plavix 9. DM II - ISS, BGM ACHS - Increase levemir 13 units BID 10. GERD - Protonix 11. Hypothyroidism - Tsh mildly low, check t3 t4 12. DVT prophylaxis: subq heparin, oob, ambulation 13. Physical therapy Visit type - Emergency Visit Emergency Visit: Yes ED Registration Date: 05/28/17 Care time: The patient presented to the Emergency Department on the above date and was hospitalized for further evaluation of their emergent condition. - New Patient This patient is new to me today: Yes Date on this admission: 05/31/17 - Critical Care Critical Care patient: No
[2017-05-31] MEDS ORDERED: methylPREDNISolone NA SUCC 40 MG/1 ML VIAL IVPUSH SCH (17:51)
[2017-05-31] MEDS ORDERED: PIPERACILLIN/TAZOB 2.25 GM/50 ML PREMIX BAG IVPB SCH (18:00)
[2017-05-31] MEDS: PIPERACILLIN/TAZOB 2.25 GM 2.25 GM in DEXTROSE 5%-WATER - 100 ML IVPB SCH (19:18)
[2017-05-31] MEDS: ATORVASTATIN CA 40 MG TABLET (FP) PO SCH (21:49)
[2017-05-31] MEDS: INSULIN DETEMIR 100 UNITS/ML MDV SQ SCH (22:10)
[2017-06-01] MEDS ORDERED: PT OWN MED DRAWER 7, Y5N ONE ×3 (01:58→21:58)
[2017-06-01] MEDS: PIPERACILLIN/TAZOB 2.25 GM 2.25 GM in DEXTROSE 5%-WATER - 100 ML IVPB SCH ×2 (02:49→18:09)
[2017-06-01] MEDS: methylPREDNISolone NA SUCC 40 MG/1 ML VIAL IVPUSH SCH ×4 (02:49→22:27)
[2017-06-01] MEDS: HEPARIN NA (PORCINE) 5,000 UNITS/ML 1ML VIAL SQ SCH ×3 (06:32→22:27)
[2017-06-01] MEDS: INSULIN DETEMIR 100 UNITS/ML MDV SQ SCH ×2 (06:33→22:27)
[2017-06-01] MEDS: INSULIN SLIDING SCALE (NOVOLOG) 1 VIAL SQ SCH ×4 (06:34→23:16)
[2017-06-01] MEDS: ALBUTEROL SO4 0.083% IH SOL 2.5 MG/3 ML VIAL.NEB. NEB SCH ×4 (08:35→20:00)
[2017-06-01 08:42] LABS: ANION GAP 2 (8-16); BLOOD UREA NITROGEN 44 mg/dL (7-18); CALCIUM 7.9 mg/dL (8.5-10.1); CHLORIDE 94 mmol/L (98-107); CO2 45 mmol/L (21-32); SODIUM 141 mmol/L (136-145)
[2017-06-01 09:57] LABS: GLUCOSE,RANDOM 313 mg/dL (74-106)
[2017-06-01] MEDS ORDERED: PIPERACILLIN/TAZOB 2.25 GM 2.25 GM in DEXTROSE 5%-WATER - 100 ML IVPB SCH (10:00)
[2017-06-01] MEDS: OSELTAMIVIR PHOSPHATE 75 MG CAPSULE PO SCH ×2 (10:19→22:27)
[2017-06-01] MEDS: metoPROLOL SUCCINATE 25 MG TAB.SR.24H (FP) PO SCH (10:19)
[2017-06-01] MEDS: VALSARTAN 40 MG TABLET (FP) PO SCH (10:19)
[2017-06-01] MEDS: ASPIRIN COATED 81 MG TABLET.EC PO SCH (10:19)
[2017-06-01] MEDS: FUROSEMIDE 40 MG/4 ML INJECTABLE VIAL IVPUSH SCH (10:19)
[2017-06-01] MEDS: CLOPIDOGREL BISULFATE 75 MG TABLET (FP) PO SCH (10:19)
[2017-06-01] MEDS: PANTOPRAZOLE 40 MG TABLET (FP) PO SCH (10:20)
--- NOTE | 2017-06-01 12:42 | PN ---
Progress Note (short form) - Note Progress Note: PULMONARY Still with shortness of breath, cough and wheezing but appears more comfortable today. No fevers recorded. Last Vital Signs Temp Pulse Resp BP Pulse Ox 98.2 F 58 L 20 129/58 98 06/01/17 06:00 06/01/17 09:49 06/01/17 06:00 06/01/17 06:00 06/01/17 09:49 Intake & Output 05/29/17 05/30/17 05/31/17 06/01/17 23:59 23:59 23:59 23:59 Intake Total 900 450 220 350 Output Total 2 Balance 900 450 218 350 Weight 100.2 kg 102.693 kg Gen: less tachypneic with speaking Heart: RRR Lung: bilateral rhonchi, wheezes Abd: soft, nontender Ext: no edema CBC, BMP 05/31/17 06:45 06/01/17 06:15 Active Medications Albuterol Sulfate (Ventolin 0.083% Nebulizer Soln -) 1 amp NEB RQID [facility] Last Admin: 06/01/17 12:14 Dose: 1 amp Aspirin (Ecotrin -) 81 mg PO DAILY [facility] Last Admin: 06/01/17 10:19 Dose: 81 mg Atorvastatin Calcium (Lipitor -) 40 mg PO HS [facility] Last Admin: 05/31/17 21:49 Dose: 40 mg Clopidogrel Bisulfate (Plavix -) 75 mg PO DAILY [facility] Last Admin: 06/01/17 10:19 Dose: 75 mg Furosemide (Lasix Injection -) 40 mg IVPUSH DAILY [facility] Last Admin: 06/01/17 10:19 Dose: 40 mg Heparin Sodium (Porcine) (Heparin -) 5,000 unit SQ TID [facility] Last Admin: 06/01/17 06:32 Dose: 5,000 unit Piperacillin Sod/Tazobactam (Sod 2.25 gm/ Dextrose) 100 mls @ 200 mls/hr IVPB Q8H-IV [facility] Insulin Aspart (Novolog Vial Sliding Scale -) 1 vial SQ ACHS [facility] PRN Reason: Protocol Last Admin: 06/01/17 11:53 Dose: 6 units Insulin Detemir (Levemir Vial) 13 units SQ BID@0700,2200 [facility] Last Admin: 06/01/17 06:33 Dose: 13 units Methylprednisolone Sodium Succinate (Solu-Medrol -) 40 mg IVPUSH Q6H-IV [facility] Last Admin: 06/01/17 10:19 Dose: 40 mg Metoprolol Succinate (Toprol Xl -) 25 mg PO DAILY [facility] Last Admin: 06/01/17 10:19 Dose: 25 mg Oseltamivir Phosphate (Tamiflu -) 75 mg PO BID [facility] Stop: 06/02/17 21:59 Last Admin: 06/01/17 10:19 Dose: 75 mg Pantoprazole Sodium (Protonix -) 20 mg PO DAILY [facility] Last Admin: 06/01/17 10:20 Dose: 20 mg Valsartan (Diovan -) 40 mg PO DAILY [facility] Last Admin: 06/01/17 10:19 Dose: 40 mg A/P Acute on Chronic Hypoxic and Hypercapneic Respiratory Failure Influenza B Acute COPD Exacerbation Acute on Chronic Systolic Heart Failure CAD +Troponins likely Demand Ischemia HTN DM - complete tamiflu - on empiric antibiotics - continue medrol at current dose - inhaled bronchodilators standing and PRN - BiPAP as needed - O2 to keep SpO2 >90% - monitor ABG - continue lasix - monitor urine output, creatinine - glucose control while on systemic steroids - trend cardiac enzymes - ASA, plavix - PO as tolerated - DVT prophylaxis
--- NOTE | 2017-06-01 16:14 | PN ---
Physical Exam: SUBJECTIVE: Patient seen and examined. She states her breathing is better today. She wants to speak to her daughter and have a BM OBJECTIVE: Vital Signs Period Temp Pulse Resp BP Sys/Gardnre Pulse Ox Last 24 Hr 97.3 F-98.7 F 58-89 20-22 117-137/52-68 94-100 PE Neuro: alert, awake, cn 2-12intact HEENT: nasal bridge dressing in tact Pulm: bibasilar rhonchi + wheezing dyspnea improved CV: s1 s2 rrr Abd: s nt nd + bs Ext: warm no le edema Laboratory Results - last 24 hr 05/31/17 06/01/17 06/01/17 21:55 05:41 06:15 Sodium 141 Potassium 5.0 Chloride 94 L Carbon Dioxide 45 H Anion Gap 2 L BUN 44 H Creatinine 1.0 POC Glucometer 282 300 Random Glucose 313 H* Calcium 7.9 L Active Medications Generic Name Dose Route Start Last Admin Trade Name Freq PRN Reason Stop Dose Admin Albuterol Sulfate 1 amp 05/29/17 20:00 06/01/17 12:14 Ventolin 0.083% Nebulizer Soln - NEB 1 amp RQID [facility] Administration Aspirin 81 mg 05/30/17 10:00 06/01/17 10:19 Ecotrin - PO 81 mg DAILY [facility] Administration Atorvastatin Calcium 40 mg 05/29/17 22:00 05/31/17 21:49 Lipitor - PO 40 mg HS [facility] Administration Clopidogrel Bisulfate 75 mg 05/30/17 10:00 06/01/17 10:19 Plavix - PO 75 mg DAILY [facility] Administration Furosemide 40 mg 05/30/17 10:00 06/01/17 10:19 Lasix Injection - IVPUSH 40 mg DAILY [facility] Administration Heparin Sodium (Porcine) 5,000 unit 05/29/17 22:00 06/01/17 14:06 Heparin - SQ 5,000 unit TID [facility] Administration Piperacillin Sod/Tazobactam 100 mls @ 200 mls/hr 06/01/17 10:00 Sod 2.25 gm/ Dextrose IVPB Q8H-IV [facility] Insulin Aspart 1 vial 05/29/17 22:00 06/01/17 11:53 Novolog Vial Sliding Scale - SQ 6 units ACHS [facility] Administration Protocol Insulin Detemir 13 units 05/31/17 22:00 06/01/17 06:33 Levemir Vial SQ 13 units BID@0700,2200 [facility] Administration Methylprednisolone Sodium Succinate 40 mg 05/31/17 21:00 06/01/17 14:06 Solu-Medrol - IVPUSH 40 mg Q6H-IV [facility] Administration Metoprolol Succinate 25 mg 05/30/17 10:00 06/01/17 10:19 Toprol Xl - PO 25 mg DAILY [facility] Administration Oseltamivir Phosphate 75 mg 05/29/17 22:00 06/01/17 10:19 Tamiflu - PO 06/02/17 21:59 75 mg BID [facility] Administration Pantoprazole Sodium 20 mg 05/30/17 10:00 06/01/17 10:20 Protonix - PO 20 mg DAILY [facility] Administration Valsartan 40 mg 05/30/17 10:00 06/01/17 10:19 Diovan - PO 40 mg DAILY [facility] Administration Imaging: - Echo: LV function mildly reduced; severe apical wall hypokinesis; apical septal wall severe hypokineses; apical lateral wall moderate hypokinesis; moderate lateral wall hypokineses; moderate MR; mild to moderate TR; pHTN; moderate 1.1cm2 Assessment: 82 year-old female with a PMH significant for HTN, HLD, CAD s/p OR s /p stents x 2 (2013), systolic and diastolic heart failure, COPD on home O2 ( intubations x 3), IDDM, and arthritis. Admitted for acute hypercapnic and hypoxic respiratory failure, influenza B, COPD exacerbation, and systolic heart failure exacerbation. Plan: 1. Acute on chronic hypercapnic and hypoxic respiratory failure, multifactorial - Stable on NC - BiPAP at night and PRN - Maintain Solumedrol 40mg q6h - CXR in AM 2. Kelbsiella UTI - Started zosyn 2.25 q8hr (day 1) - Resistant to ceftriaxone 3. Influenza B - Tamiflu 4. Acute COPD exacerbation - Albuterol nebs q6h scheduled 5. Acute on chronic systolic and diastolic heart failure - Weight elevated, however on steroids - Lasix IV 40mg daily - Obtain cxr in AM, possible transition to PO 6. Hypertension - BP stable - Continue Toprol XL, Diovan 7. Hyperlipidemia - Continue Lipitor 8. CAD s/p OR s/p stents - 10/2013: rotational atherectomy and YURIY PCI of mLAD and diag; residual prox LCx 90-95% calcific; 30-50% LM disease - Continue ASA, Toprol XL, Plavix 9. DM II - ISS, BGM ACHS - Maintain increased levemir 13 units BID 10. GERD - Protonix 11. Hypothyroidism - Tsh mildly low, check t3 t4 12. DVT prophylaxis: subq heparin, oob, ambulation 13. Physical therapy Visit type - Emergency Visit Emergency Visit: Yes ED Registration Date: 05/28/17 Care time: The patient presented to the Emergency Department on the above date and was hospitalized for further evaluation of their emergent condition. - New Patient This patient is new to me today: No - Critical Care Critical Care patient: No
[2017-06-01] MEDS ORDERED: PIPERACILLIN/TAZOB 2.25 GM/50 ML PREMIX BAG IVPB SCH (17:00)
[2017-06-01] MEDS ORDERED: POLYETHYLENE GLYCOL 3350 119 GM BTL PO ONE (17:21)
[2017-06-01] MEDS ORDERED: ACETAMINOPHEN 325 MG TABLET (FP) PO PRN (17:47)
[2017-06-01] MEDS: ATORVASTATIN CA 40 MG TABLET (FP) PO SCH (22:26)
[2017-06-01] MEDS: SENNOSIDES 8.6MG TABLET (FP) PO SCH (22:26)
[2017-06-02] MEDS: PIPERACILLIN/TAZOB 2.25 GM 2.25 GM in DEXTROSE 5%-WATER - 100 ML IVPB SCH ×2 (02:35→09:22)
[2017-06-02] MEDS: methylPREDNISolone NA SUCC 40 MG/1 ML VIAL IVPUSH SCH ×4 (02:36→22:24)
[2017-06-02] MEDS: INSULIN DETEMIR 100 UNITS/ML MDV SQ SCH ×2 (06:38→22:28)
[2017-06-02] MEDS: HEPARIN NA (PORCINE) 5,000 UNITS/ML 1ML VIAL SQ SCH ×3 (06:38→22:24)
[2017-06-02] MEDS: INSULIN SLIDING SCALE (NOVOLOG) 1 VIAL SQ SCH ×3 (06:39→22:29)
[2017-06-02 06:54] LABS: BLOOD UREA NITROGEN 41 mg/dL (7-18); CALCIUM 7.8 mg/dL (8.5-10.1); CHLORIDE 96 mmol/L (98-107); SODIUM 142 mmol/L (136-145)
[2017-06-02 06:59] LABS: GLUCOSE,RANDOM 369 mg/dL (74-106)
[2017-06-02] MEDS: ALBUTEROL SO4 0.083% IH SOL 2.5 MG/3 ML VIAL.NEB. NEB SCH ×4 (07:35→20:35)
[2017-06-02] MEDS ORDERED: INSULIN SLIDING SCALE (NOVOLOG) 1 VIAL SQ SCH ×2 (07:43→09:25)
[2017-06-02 08:11] LABS: ANION GAP 1 (8-16); CO2 45 mmol/L (21-32)
[2017-06-02] MEDS ORDERED: INSULIN (NOVOLOG) ASPART 100 UNITS/ML 10ML VIAL SQ ONE (08:15)
[2017-06-02 08:46] LABS: HEMATOCRIT 37.7 % (32.4-45.2); HEMOGLOBIN 11.1 GM/dL (10.7-15.3); MCHC 29.4 g/dl (32.0-36.0); MEAN CELL VOLUME 67.2 fl (80-96); MEAN PLT VOLUME 8.8 fl (7.5-11.1); PLATELET COUNT 186 K/MM3 (134-434); RBC 5.61 M/mm3 (3.60-5.2); RDW 19.4 % (11.6-15.6)
[2017-06-02 08:48] LABS: LYMPH % 6.1 % (8-40); MCH 19.8 pg (25.7-33.7); NEUT % 88.3 % (42.8-82.8)
[2017-06-02 08:49] LABS: BASO % 0.2 % (0-2.0); MONO % 5.4 % (3.8-10.2)
[2017-06-02] MEDS ORDERED: PT OWN MED DRAWER 7, Y5N ONE (09:01)
[2017-06-02] MEDS: metoPROLOL SUCCINATE 25 MG TAB.SR.24H (FP) PO SCH (09:04)
[2017-06-02] MEDS: POLYETHYLENE GLYCOL 3350 119 GM BTL PO SCH (09:04)
[2017-06-02] MEDS: PANTOPRAZOLE 40 MG TABLET (FP) PO SCH (09:04)
[2017-06-02] MEDS: OSELTAMIVIR PHOSPHATE 75 MG CAPSULE PO SCH (09:04)
[2017-06-02] MEDS: FUROSEMIDE 40 MG/4 ML INJECTABLE VIAL IVPUSH SCH (09:04)
[2017-06-02] MEDS: ASPIRIN COATED 81 MG TABLET.EC PO SCH (09:04)
[2017-06-02] MEDS: CLOPIDOGREL BISULFATE 75 MG TABLET (FP) PO SCH (09:04)
[2017-06-02] MEDS: VALSARTAN 40 MG TABLET (FP) PO SCH (09:04)
--- NOTE | 2017-06-02 09:09 | PN ---
Physical Exam: SUBJECTIVE: Patient seen and examined at the bedside. 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 EYES: PERRL, extraocular movements intact, sclera anicteric, conjunctiva clear. No ptosis. ENT: Ears normal, nares patent, oropharynx clear without exudates, moist mucous membranes. NECK: Trachea midline, full range of motion, supple. LUNGS: diminished breath sounds, + congested, on 4 liters of nasal cannula, conversational dyspnea HEART: Regular rate and rhythm, S1, S2 without murmur, rub or gallop. ABDOMEN: Soft, nontender, mildly distended, constipated EXTREMITIES: trace edema bilaterally NEUROLOGICAL: conversational dyspena, gait not observed. PSYCH: Normal mood, normal affect. SKIN: Warm, dry, normal turgor, no rashes or lesions noted Laboratory Results - last 24 hr 05/31/17 05/31/17 06/01/17 12:07 16:26 06:15 WBC RBC Hgb Hct MCV MCH MCHC RDW Plt Count MPV Neutrophils % Lymphocytes % Monocytes % Eosinophils % Basophils % Sodium 141 Potassium 5.0 Chloride 94 L Carbon Dioxide 45 H Anion Gap 2 L BUN 44 H Creatinine 1.0 POC Glucometer 489 440 Random Glucose 313 H* Calcium 7.9 L 06/01/17 06/01/17 06/01/17 11:26 16:19 22:08 WBC RBC Hgb Hct MCV MCH MCHC RDW Plt Count MPV Neutrophils % Lymphocytes % Monocytes % Eosinophils % Basophils % Sodium Potassium Chloride Carbon Dioxide Anion Gap BUN Creatinine POC Glucometer 292 337 518 Random Glucose Calcium 06/01/17 06/02/17 06/02/17 22:09 00:35 00:38 WBC RBC Hgb Hct MCV MCH MCHC RDW Plt Count MPV Neutrophils % Lymphocytes % Monocytes % Eosinophils % Basophils % Sodium Potassium Chloride Carbon Dioxide Anion Gap BUN Creatinine POC Glucometer 487 467 441 Random Glucose Calcium 06/02/17 06/02/17 06/02/17 05:35 05:35 05:39 WBC 5.0 RBC 5.61 H Hgb 11.1 Hct 37.7 MCV 67.2 L MCH 19.8 L MCHC 29.4 L RDW 19.4 H Plt Count 186 MPV 8.8 Neutrophils % 88.3 H Lymphocytes % 6.1 L D Monocytes % 5.4 D Eosinophils % 0.0 Basophils % 0.2 Sodium 142 Potassium 5.0 Chloride 96 L Carbon Dioxide 45 H Anion Gap 1 L BUN 41 H Creatinine 1.0 POC Glucometer 315 Random Glucose 369 H* Calcium 7.8 L 06/02/17 08:12 WBC RBC Hgb Hct MCV MCH MCHC RDW Plt Count MPV Neutrophils % Lymphocytes % Monocytes % Eosinophils % Basophils % Sodium Potassium Chloride Carbon Dioxide Anion Gap BUN Creatinine POC Glucometer 387 Random Glucose Calcium Active Medications Generic Name Dose Route Start Last Admin Trade Name Freq PRN Reason Stop Dose Admin Acetaminophen 650 mg 06/01/17 17:47 06/01/17 18:07 Tylenol - PO 325 mg Q6H PRN Administration PAIN LEVEL 4 - 6 Albuterol Sulfate 1 amp 05/29/17 20:00 06/02/17 07:35 Ventolin 0.083% Nebulizer Soln - NEB 1 amp RQID RYANN Administration Aspirin 81 mg 05/30/17 10:00 06/01/17 10:19 Ecotrin - PO 81 mg DAILY RYANN Administration Atorvastatin Calcium 40 mg 05/29/17 22:00 06/01/17 22:26 Lipitor - PO 40 mg HS RYANN Administration Clopidogrel Bisulfate 75 mg 05/30/17 10:00 06/01/17 10:19 Plavix - PO 75 mg DAILY RYANN Administration Furosemide 40 mg 05/30/17 10:00 06/01/17 10:19 Lasix Injection - IVPUSH 40 mg DAILY RYANN Administration Heparin Sodium (Porcine) 5,000 unit 05/29/17 22:00 06/02/17 06:38 Heparin - SQ 5,000 unit TID RYANN Administration Piperacillin Sod/Tazobactam 100 mls @ 200 mls/hr 06/01/17 18:00 06/02/17 02: 35 Sod 2.25 gm/ Dextrose IVPB 06/02/17 10:29 200 mls/hr Q8H-IV RYANN Administration Insulin Aspart 1 vial 02/05/18 07:43 Novolog Vial Sliding Scale - SQ ACHS RYANN Protocol Insulin Detemir 13 units 05/31/17 22:00 06/02/17 06:38 Levemir Vial SQ 13 units BID@0700,2200 RYANN Administration Methylprednisolone Sodium Succinate 40 mg 05/31/17 21:00 06/02/17 02:36 Solu-Medrol - IVPUSH 40 mg Q6H-IV RYANN Administration Metoprolol Succinate 25 mg 05/30/17 10:00 06/01/17 10:19 Toprol Xl - PO 25 mg DAILY RYANN Administration Oseltamivir Phosphate 75 mg 05/29/17 22:00 06/01/17 22:27 Tamiflu - PO 06/02/17 21:59 75 mg BID RYANN Administration Pantoprazole Sodium 20 mg 05/30/17 10:00 06/01/17 10:20 Protonix - PO 20 mg DAILY RYANN Administration Piperacillin/Tazobactam/Dextrose 2.25 gm 06/01/17 17:00 Zosyn 2.25gm Ivpb (Premix) IVPB Q8H-IV RYANN Polyethylene Glycol 17 gm 06/02/17 10:00 Miralax (For Daily Use) - PO DAILY RYANN Senna 1 tab 06/01/17 22:00 06/01/17 22:26 Senna - PO 1 tab HS RYANN Administration Valsartan 40 mg 05/30/17 10:00 06/01/17 10:19 Diovan - PO 40 mg DAILY RYANN Administration ASSESSMENT/PLAN: Patient is an 82 year old female with a significant past medical history of hypertension, hld, CAD s/p PR with stents x 2, systolic and diastolic heart failure, COPD on home oxygen, intubatations x 3, diabetes mellitus and arthritis. She was admitted on 05/28/2017 for acute hypercapnic and hypoxic respiratory failure, influenza B, COPD exacerbation, and systolic heart failure exacerbation. Imaging: Echo: LV function mildly reduced, severe apical wall hypokinesis, apical septal wall severe hypokineses; apical lateral wall moderate hypokinesis; moderate lateral wall hypokineses; mod.MR; mild to moderate TR; pHTN; moderate 1.1cm2 Pulmonary: Respiratory distress/shortness of breath Acute on chronic hypercapnic and hypoxic respiratory failure + flu, COPD exacerbation, systolic heart failure exacerbation On bipap at night Solumedrol 40mg q6 Given Ceftriaxone and Zosyn (pt has listed allergy for PCN), ID consulted Maintain oxygen sats @ 90% or greater Tamiflu duonebs On 4 liters nasal cannula Monitor respiratory status closely ID: Kelbsiella UTI Given Zosyn, started on 06/01 ID consulted for further antibiotic therapy Cardiology: Acute on chronic systolic and diastolic heart failure Monitor weights, intake andoutput Lasix 40mg IV daily Hypertension, controlled On Toprol XL, Diovan Hyperlipidemia Continue Lipitor CAD s/p PR s/p stents Continue ASA, Toprol XL, Plavix Endocrine: Diabetes Hyperglycemia Tightened glucose coverate Increased Levemir F.E.N. Fluids: tolerating PO Electrolytes: monitor Nutrition: diabetic diet Prophylaxis DVT: Heparin TID GI: Protonix Disposition: full code Visit type - Emergency Visit Emergency Visit: Yes ED Registration Date: 05/28/17 Care time: The patient presented to the Emergency Department on the above date and was hospitalized for further evaluation of their emergent condition. - New Patient This patient is new to me today: Yes Date on this admission: 06/02/17 - Critical Care Critical Care patient: No - Discharge Referral Referred to [facility] Med P.C.: No
[2017-06-02] MEDS ORDERED: PIPERACILLIN/TAZOB 2.25 GM 2.25 GM/50 ML BAG IVPB SCH (12:00)
--- NOTE | 2017-06-02 12:36 | PN ---
Progress Note, Physician History of Present Illness: PULMONARY ALERT,STILL DYSPNEIC,ON NASAL O2 - Current Medication List Current Medications: Active Medications Acetaminophen (Tylenol -) 650 mg PO Q6H PRN PRN Reason: PAIN LEVEL 4 - 6 Last Admin: 06/01/17 18:07 Dose: 325 mg Albuterol Sulfate (Ventolin 0.083% Nebulizer Soln -) 1 amp NEB RQID [facility] Last Admin: 06/02/17 11:15 Dose: 1 amp Aspirin (Ecotrin -) 81 mg PO DAILY [facility] Last Admin: 06/02/17 09:04 Dose: 81 mg Atorvastatin Calcium (Lipitor -) 40 mg PO HS [facility] Last Admin: 06/01/17 22:26 Dose: 40 mg Clopidogrel Bisulfate (Plavix -) 75 mg PO DAILY [facility] Last Admin: 06/02/17 09:04 Dose: 75 mg Furosemide (Lasix Injection -) 40 mg IVPUSH DAILY [facility] Last Admin: 06/02/17 09:04 Dose: 40 mg Heparin Sodium (Porcine) (Heparin -) 5,000 unit SQ TID [facility] Last Admin: 06/02/17 06:38 Dose: 5,000 unit Piperacillin/Tazobactam/Dextrose (Zosyn 2.25gm Ivpb (Premix)) 2.25 gm in 50 mls @ 100 mls/hr IVPB Q8H-IV [facility] Last Admin: 06/02/17 12:20 Dose: Not Given Insulin Aspart (Novolog Vial Sliding Scale -) 1 vial SQ ACHS [facility] PRN Reason: Protocol Insulin Detemir (Levemir Vial) 15 units SQ BID@0700,2200 [facility] Methylprednisolone Sodium Succinate (Solu-Medrol -) 40 mg IVPUSH Q6H-IV [facility] Last Admin: 06/02/17 09:04 Dose: 40 mg Metoprolol Succinate (Toprol Xl -) 25 mg PO DAILY [facility] Last Admin: 06/02/17 09:04 Dose: 25 mg Oseltamivir Phosphate (Tamiflu -) 75 mg PO BID [facility] Stop: 06/02/17 21:59 Last Admin: 06/02/17 09:04 Dose: 75 mg Pantoprazole Sodium (Protonix -) 20 mg PO DAILY [facility] Last Admin: 06/02/17 09:04 Dose: 20 mg Polyethylene Glycol (Miralax (For Daily Use) -) 17 gm PO DAILY [facility] Last Admin: 02/05/18 09:04 Dose: 17 gm Senna (Senna -) 1 tab PO HS RYANN Last Admin: 06/01/17 22:26 Dose: 1 tab Valsartan (Diovan -) 40 mg PO DAILY [facility] Last Admin: 06/02/17 09:04 Dose: 40 mg - Objective Vital Signs: Vital Signs Temperature 97.4 F L 06/02/17 06:00 Pulse Rate 69 06/02/17 06:00 Respiratory Rate 20 06/02/17 06:00 Blood Pressure 137/56 06/02/17 06:00 O2 Sat by Pulse Oximetry (%) 96 06/02/17 09:20 Constitutional: Yes: Well Nourished, Calm Eyes: Yes: WNL HENT: Yes: WNL Neck: Yes: WNL Cardiovascular: Yes: Regular Rate and Rhythm, S1, S2 Respiratory: Yes: Wheezes (LUCINA WHEEZES) Gastrointestinal: Yes: Normal Bowel Sounds, Soft Extremities: Yes: WNL Edema: No Labs: CBC, BMP 06/02/17 05:35 06/02/17 05:35 INR, PTT INR 1.02 (0.82-1.09) 05/28/17 14:45 Problem List - Problems (1) Acute on chronic respiratory failure with hypoxia and hypercapnia Code(s): J96.21 - ACUTE AND CHRONIC RESPIRATORY FAILURE WITH HYPOXIA; J96.22 - ACUTE AND CHRONIC RESPIRATORY FAILURE WITH HYPERCAPNIA (2) Influenza B Code(s): J10.1 - FLU DUE TO OTH IDENT INFLUENZA VIRUS W OTH RESP MANIFEST (3) Shortness of breath Code(s): R06.02 - SHORTNESS OF BREATH (4) ASHD (arteriosclerotic heart disease) Code(s): I25.10 - ATHSCL HEART DISEASE OF [place] CORONARY ARTERY W/O ANG PCTRS (5) HTN (hypertension) Code(s): I10 - ESSENTIAL (PRIMARY) HYPERTENSION Qualifiers: Hypertension type: essential hypertension Qualified Code(s): I10 - Essential (primary) hypertension (6) History of coronary artery stent placement Code(s): Z95.5 - PRESENCE OF CORONARY ANGIOPLASTY IMPLANT AND GRAFT (7) Respiratory distress Code(s): R06.00 - DYSPNEA, UNSPECIFIED (8) COPD exacerbation Code(s): J44.1 - CHRONIC OBSTRUCTIVE PULMONARY DISEASE W (ACUTE) EXACERBATION (9) CHF exacerbation Code(s): I50.9 - HEART FAILURE, UNSPECIFIED Qualifiers: Congestive heart failure type: combined Qualified Code(s): I50.43 - Acute on chronic combined systolic (congestive) and diastolic (congestive) heart failure Assessment/Plan ASSESSMENT AND PLAN: Acute on Chronic Hypoxic and Hypercapneic Respiratory Failure Influenza B Acute COPD Exacerbation Acute on Chronic Systolic Heart Failure CAD +Troponins likely Demand Ischemia HTN DM - tamiflu - antibiotics - medrol - inhaled bronchodilators standing and PRN - BiPAP as needed - O2 to keep SpO2 >90% - monitor ABGs - lasix - monitor urine output, creatinine - glucose control while on systemic steroids - ASA, plavix - PO as tolerated - DVT prophylaxis DR CAAL
--- NOTE | 2017-06-02 14:46 | PN ---
Progress Note (short form) - Note Progress Note: ID Consult dictated Klebsiella UTI Acute Influenza B Exacerbation COPD +/- CHF PCN allergy Substitute po Nitrofurantoin x 7d for UTI Complete course of Tamiflu Continue treatment for COPD/CHF
[2017-06-02] MEDS: NITROFURANTOIN MACROCRYSTAL 50 MG CAPSULE (FP) PO SCH ×2 (17:13→23:46)
--- NOTE | 2017-06-02 17:50 | CONS ---
INFECTIOUS DISEASE CONSULTATION DATE OF CONSULTATION: DATE OF DICTATION: 06/02/2017 REASON FOR CONSULTATION: The patient is an 82-year-old female evaluated for urinary tract infection. HISTORY OF PRESENT ILLNESS: She has a history of oxygen-dependent COPD and congestive heart failure. She was admitted to the hospital on May 28, 2017, with a 1-day history of worsening shortness of breath, a rapid flu swab was performed and was positive for influenza B. She was treated with Tamiflu. Patient was treated with bronchodilators, intravenous corticosteroids, and Lasix. She was found to have pyuria and a positive urine culture for klebsiella. She was started on Zosyn. However, patient gives a history of PENICILLIN allergy. At the present time, she is awake and alert. She is mildly short of breath at rest on nasal cannula. She has a moist cough. Patient reports dysuria, urinary frequency, and urgency. PAST MEDICAL HISTORY: Positive for oxygen-dependent COPD, congestive heart failure, coronary artery disease, myocardial infarction, hypertension, hyperlipidemia, insulin-dependent diabetes mellitus, osteoarthritis. PAST SURGICAL HISTORY: Status post coronary artery stents, right total knee replacement, cholecystectomy. ALLERGIES: PENICILLIN. Patient unaware of the nature of the allergy. MEDICATIONS: Humalog, Levemir, Plavix, Lipitor, levothyroxine, metoprolol. SOCIAL HISTORY: She lives at home with family. She is a nonsmoker, nondrinker. SYSTEMS REVIEW: Neurologic: No loss of consciousness, seizure activity, focal weakness. Cardiac: Negative chest pain or palpitations. Respiratory: As per HPI. Gastrointestinal: Negative vomiting or diarrhea. Genitourinary: Positive for urinary tract infection. LABORATORY DATA: White count 5.0, hematocrit 37.7, platelet count 186. BUN 4, creatinine 1.0. Urinalysis 14 white cells. Blood cultures preliminarily negative. Urine culture: Klebsiella. Chest x-ray shows some increased markings at the bases bilaterally. PHYSICAL EXAMINATION: General: The patient is awake, supine in bed, slightly short of breath at rest on nasal cannula O2. Moist cough noted. Vital Signs: Temperature 98.6; blood pressure 118/53; pulse 73, regular; respirations 20 per minute. HEENT: Sclerae anicteric. Oropharynx: Mild injection. No exudate. Heart: Sounds S1, S2. A 2/6 pansystolic murmur. Lungs: Crepitation at the mid and lower lung greer bilaterally, left greater than right. Abdomen: Obese, soft. No tenderness elicited. No suprapubic or flank tenderness. Extremities: Positive for edema. IMPRESSION: 1. Klebsiella urinary tract infection. 2. Acute influenza B. 3. Exacerbation of chronic obstructive pulmonary disease. 4. Possible superimposed congestive heart failure. 5. PENICILLIN allergy. RECOMMENDATIONS: We will substitute nitrofurantoin for treatment of klebsiella UTI in this PENICILLIN-ALLERGIC patient, complete 7-day course. Continue treatment for COPD and complete course of Tamiflu for influenza. Thank you for the kind referral. MAURO AGUILAR M.D. [id number]
[2017-06-02] MEDS: SENNOSIDES 8.6MG TABLET (FP) PO SCH (22:24)
[2017-06-02] MEDS: ATORVASTATIN CA 40 MG TABLET (FP) PO SCH (22:24)
[2017-06-03] MEDS: methylPREDNISolone NA SUCC 40 MG/1 ML VIAL IVPUSH SCH ×4 (02:10→23:58)
[2017-06-03] MEDS: NITROFURANTOIN MACROCRYSTAL 50 MG CAPSULE (FP) PO SCH ×4 (05:42→23:58)
[2017-06-03] MEDS: HEPARIN NA (PORCINE) 5,000 UNITS/ML 1ML VIAL SQ SCH ×3 (05:42→23:58)
[2017-06-03] MEDS: INSULIN SLIDING SCALE (NOVOLOG) 1 VIAL SQ SCH ×3 (06:19→17:16)
[2017-06-03] MEDS: INSULIN DETEMIR 100 UNITS/ML MDV SQ SCH (06:20)
[2017-06-03 07:34] LABS: ALBUMIN 3.1 g/dl (3.4-5.0); ALK PHOS 52 U/L (45-117); BILIRUBIN,TOTAL 1.1 mg/dL (0.2-1.0); BLOOD UREA NITROGEN 40 mg/dL (7-18); CALCIUM 8.8 mg/dL (8.5-10.1); CHLORIDE 94 mmol/L (98-107); CREATININE 0.8 mg/dL (0.55-1.02); GLUCOSE,RANDOM 148 mg/dL (74-106); MAGNESIUM 2.5 mg/dL (1.8-2.4); POTASSIUM 4.8 mmol/L (3.5-5.1); SGOT/AST 10 U/L (15-37); SGPT/ALT 19 U/L (12-78); SODIUM 145 mmol/L (136-145); TOT PROT 7.2 g/dl (6.4-8.2)
[2017-06-03 07:47] LABS: BASO % 0.3 % (0-2.0); HEMATOCRIT 40.4 % (32.4-45.2); LYMPH % 6.2 % (8-40); MCHC 29.7 g/dl (32.0-36.0); MEAN CELL VOLUME 66.7 fl (80-96); MONO % 3.5 % (3.8-10.2); PLATELET COUNT 193 K/MM3 (134-434); RBC 6.05 M/mm3 (3.60-5.2); RDW 18.8 % (11.6-15.6); WHITE BLOOD COUNT 5.2 K/mm3 (4.0-10.0)
[2017-06-03 08:02] LABS: MCH 19.8 pg (25.7-33.7)
[2017-06-03] MEDS: ALBUTEROL SO4 0.083% IH SOL 2.5 MG/3 ML VIAL.NEB. NEB SCH ×4 (08:05→20:30)
--- NOTE | 2017-06-03 09:14 | PN ---
Physical Exam: SUBJECTIVE: Patient seen and examined. Denies any chest pain or shortness of breath. 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 EYES: PERRL, extraocular movements intact, sclera anicteric, conjunctiva clear. No ptosis. ENT: Ears normal, nares patent, oropharynx clear without exudates, moist mucous membranes. NECK: Trachea midline, full range of motion, supple. LUNGS: diminished breath sounds, + congested, on 4 liters of nasal cannula, conversational dyspnea HEART: Regular rate and rhythm, S1, S2 without murmur, rub or gallop. ABDOMEN: Soft, nontender, mildly distended, constipated EXTREMITIES: trace edema bilaterally NEUROLOGICAL: conversational dyspena, gait not observed. PSYCH: Normal mood, normal affect. SKIN: Warm, dry, normal turgor, no rashes or lesions noted Laboratory Results - last 24 hr 06/02/17 06/02/17 06/02/17 05:35 11:44 15:38 WBC RBC Hgb Hct MCV MCH MCHC RDW Plt Count MPV Neutrophils % Lymphocytes % Monocytes % Eosinophils % Basophils % Hypersegmented Neuts Cancelled Hypochromia Cancelled Toxic Granulation Cancelled Dohle Bodies Cancelled Polychromasia Cancelled Poikilocytosis Cancelled Basophilic Stippling Cancelled Anisocytosis Cancelled Microcytosis Cancelled Macrocytosis Cancelled Spherocytes Cancelled Siderocytes Cancelled Sickle Cells Cancelled Target Cells Cancelled Tear Drop Cells Cancelled Ovalocytes Cancelled Stomatocytes Cancelled Helmet Cells Cancelled [place] Bodies Cancelled [place] Rings Cancelled [place] Cells Cancelled Acanthocytes (Spur) Cancelled Rouleaux Cancelled Fragmented RBCs Cancelled Schistocytes Cancelled Morphology Comment Cancelled Sodium Potassium Chloride BUN Creatinine Creat Clearance w eGFR POC Glucometer 475 414 Random Glucose Calcium Magnesium Total Bilirubin AST ALT Alkaline Phosphatase Total Protein Albumin 06/02/17 06/03/17 06/03/17 22:28 05:30 05:30 WBC 5.2 RBC 6.05 H Hgb 12.0 Hct 40.4 MCV 66.7 L MCH 19.8 L MCHC 29.7 L RDW 18.8 H Plt Count 193 MPV 9.0 Neutrophils % 90.0 H Lymphocytes % 6.2 L Monocytes % 3.5 L Eosinophils % 0.0 Basophils % 0.3 Hypersegmented Neuts Hypochromia Toxic Granulation Dohle Bodies Polychromasia Poikilocytosis Basophilic Stippling Anisocytosis Microcytosis Macrocytosis Spherocytes Siderocytes Sickle Cells Target Cells Tear Drop Cells Ovalocytes Stomatocytes Helmet Cells [place] Bodies [place] Rings Rueter Cells Acanthocytes (Spur) Rouleaux Fragmented RBCs Schistocytes Morphology Comment Sodium 145 Potassium 4.8 Chloride 94 L BUN 40 H Creatinine 0.8 Creat Clearance w eGFR > 60 POC Glucometer 258 Random Glucose 148 H Calcium 8.8 Magnesium 2.5 H Total Bilirubin 1.1 H D AST 10 L ALT 19 Alkaline Phosphatase 52 Total Protein 7.2 Albumin 3.1 L 06/03/17 05:46 WBC RBC Hgb Hct MCV MCH MCHC RDW Plt Count MPV Neutrophils % Lymphocytes % Monocytes % Eosinophils % Basophils % Hypersegmented Neuts Hypochromia Toxic Granulation Dohle Bodies Polychromasia Poikilocytosis Basophilic Stippling Anisocytosis Microcytosis Macrocytosis Spherocytes Siderocytes Sickle Cells Target Cells Tear Drop Cells Ovalocytes Stomatocytes Helmet Cells [place] Bodies [place] Rings Rueter Cells Acanthocytes (Spur) Rouleaux Fragmented RBCs Schistocytes Morphology Comment Sodium Potassium Chloride BUN Creatinine Creat Clearance w eGFR POC Glucometer 149 Random Glucose Calcium Magnesium Total Bilirubin AST ALT Alkaline Phosphatase Total Protein Albumin Active Medications Generic Name Dose Route Start Last Admin Trade Name Freq PRN Reason Stop Dose Admin Acetaminophen 650 mg 06/01/17 17:47 06/01/17 18:07 Tylenol - PO 325 mg Q6H PRN Administration PAIN LEVEL 4 - 6 Albuterol Sulfate 1 amp 05/29/17 20:00 06/03/17 08:05 Ventolin 0.083% Nebulizer Soln - NEB 1 amp RQID RYANN Administration Aspirin 81 mg 05/30/17 10:00 02/05/18 09:04 Ecotrin - PO 81 mg DAILY RYANN Administration Atorvastatin Calcium 40 mg 05/29/17 22:00 06/02/17 22:24 Lipitor - PO 40 mg HS RYANN Administration Clopidogrel Bisulfate 75 mg 05/30/17 10:00 06/02/17 09:04 Plavix - PO 75 mg DAILY RYANN Administration Furosemide 40 mg 05/30/17 10:00 06/02/17 09:04 Lasix Injection - IVPUSH 40 mg DAILY RYANN Administration Heparin Sodium (Porcine) 5,000 unit 05/29/17 22:00 06/03/17 05:42 Heparin - SQ 5,000 unit TID RYANN Administration Insulin Aspart 1 vial 06/02/17 11:51 06/03/17 06:19 Novolog Vial Sliding Scale - SQ Not Given ACHS [facility] Protocol Insulin Detemir 15 units 06/02/17 11:53 06/03/17 06:20 Levemir Vial SQ 15 units BID@0700,2200 RYANN Administration Methylprednisolone Sodium Succinate 40 mg 05/31/17 21:00 06/03/17 02:10 Solu-Medrol - IVPUSH 40 mg Q6H-IV RYANN Administration Metoprolol Succinate 25 mg 05/30/17 10:00 06/02/17 09:04 Toprol Xl - PO 25 mg DAILY RYANN Administration Nitrofurantoin Macrocrystals 50 mg 06/02/17 18:00 06/03/17 05:42 Macrodantin - PO 50 mg Q6HPO RYANN Administration Pantoprazole Sodium 20 mg 05/30/17 10:00 06/02/17 09:04 Protonix - PO 20 mg DAILY RYANN Administration Polyethylene Glycol 17 gm 06/02/17 10:00 06/02/17 09:04 Miralax (For Daily Use) - PO 17 gm DAILY RYANN Administration Senna 1 tab 06/01/17 22:00 06/02/17 22:24 Senna - PO 1 tab HS RYANN Administration Valsartan 40 mg 05/30/17 10:00 06/02/17 09:04 Diovan - PO 40 mg DAILY RYANN Administration ASSESSMENT/PLAN: Patient is an 82 year old female with a significant past medical history of hypertension, hld, CAD s/p GA with stents x 2, systolic and diastolic heart failure, COPD on home oxygen, intubations x 3, diabetes mellitus, esophageal stricture and arthritis. She was admitted on 05/28/2017 for acute hypercapnic and hypoxic respiratory failure, COPD exacerbation, and systolic heart failure exacerbation. She was also found to be influenza B positive. Imaging: Echo: LV function mildly reduced, severe apical wall hypokinesis, apical septal wall severe hypokineses; apical lateral wall moderate hypokinesis; moderate lateral wall hypokineses; mod.MR; mild to moderate TR; pHTN; moderate 1.1cm2 Pulmonary: Respiratory distress/shortness of breath Acute on chronic hypercapnic and hypoxic respiratory failure + flu, COPD exacerbation, systolic heart failure exacerbation On bipap at night and prn Solumedrol titrated down to 40mg q6 Maintain oxygen sats @ 90% or greater Tamiflu completed duonebs On 4 liters nasal cannula, wean off as tolerated ID: Kelbsiella UTI On Macrodantin 50mg q6 Cardiology: Acute on chronic systolic and diastolic heart failure Monitor weights, intake and output Lasix 40mg IV daily Bystolic 10mg to subs. Toprol 25mg daily as per cards recommendation Hypertension, controlled On Bystolic 10mg, Diovan Hyperlipidemia Continue Lipitor CAD s/p GA s/p stents Continue ASA, Byostolic, Plavix Dysphagia Hx of esophageal stricture, chronic Speech and swallow following Recommendations noted and added to POC Dysphagia minced diet with nectar thick fluids Aspiration precautions MBS when more stable Endocrine: Diabetes Hyperglycemia Tightened glucose coverage Increased Levemir again F.E.N. Fluids: tolerating PO Electrolytes: monitor Nutrition: diabetic diet/minced/nectar thick Prophylaxis DVT: Heparin TID GI: Protonix Disposition: full code Visit type - Emergency Visit Emergency Visit: Yes ED Registration Date: 05/28/17 Care time: The patient presented to the Emergency Department on the above date and was hospitalized for further evaluation of their emergent condition. - New Patient This patient is new to me today: No - Critical Care Critical Care patient: No - Discharge Referral [facility]erred [facility] Med P.C.: No
[2017-06-03 09:15] LABS: ANION GAP 3 (8-16); CO2 48 mmol/L (21-32)
--- NOTE | 2017-06-03 09:25 | PN ---
Progress Note (short form) - Note Progress Note: Chief Complaint: Events noted, notes reviewed, complaining of persistent dyspnea , cough productive of clear sputum History of Present Illness: Seen and examined on telemetry. Full consult dictated 10/2013 rotational atherectomy and YURIY PCI of mLAD and Diag, residual prox LCx 90-95% calcific, 30-50% LM disease Echocardiography 10/2013 mildly reduced LV function, apical severe akinesia, anterior mod hypokinesia, mild to moderate MR, mild to moderate right atrial enlargement, RVSP 50-60 (likely LAD infarct), repeat echocardiography dated 05/19 noted no significant change Medications: Current Medications Acetaminophen (Tylenol -) 650 mg PO Q6H PRN PRN Reason: PAIN LEVEL 4 - 6 Last Admin: 06/01/17 18:07 Dose: 325 mg Albuterol Sulfate (Ventolin 0.083% Nebulizer Soln -) 1 amp NEB RQID [facility] Last Admin: 06/03/17 08:05 Dose: 1 amp Aspirin (Ecotrin -) 81 mg PO DAILY [facility] Last Admin: 06/02/17 09:04 Dose: 81 mg Atorvastatin Calcium (Lipitor -) 40 mg PO HS [facility] Last Admin: 06/02/17 22:24 Dose: 40 mg Clopidogrel Bisulfate (Plavix -) 75 mg PO DAILY [facility] Last Admin: 06/02/17 09:04 Dose: 75 mg Furosemide (Lasix Injection -) 40 mg IVPUSH DAILY [facility] Last Admin: 06/02/17 09:04 Dose: 40 mg Heparin Sodium (Porcine) (Heparin -) 5,000 unit SQ TID [facility] Last Admin: 06/03/17 05:42 Dose: 5,000 unit Insulin Aspart (Novolog Vial Sliding Scale -) 1 vial SQ ACHS [facility] PRN Reason: Protocol Last Admin: 06/03/17 06:19 Dose: Not Given Insulin Detemir (Levemir Vial) 15 units SQ BID@0700,2200 [facility] Last Admin: 06/03/17 06:20 Dose: 15 units Methylprednisolone Sodium Succinate (Solu-Medrol -) 40 mg IVPUSH Q6H-IV [facility] Last Admin: 06/03/17 02:10 Dose: 40 mg Metoprolol Succinate (Toprol Xl -) 25 mg PO DAILY [facility] Last Admin: 06/02/17 09:04 Dose: 25 mg Nitrofurantoin Macrocrystals (Macrodantin -) 50 mg PO Q6HPO [facility] Last Admin: 06/03/17 05:42 Dose: 50 mg Pantoprazole Sodium (Protonix -) 20 mg PO DAILY [facility] Last Admin: 06/02/17 09:04 Dose: 20 mg Polyethylene Glycol (Miralax (For Daily Use) -) 17 gm PO DAILY [facility] Last Admin: 06/02/17 09:04 Dose: 17 gm Senna (Senna -) 1 tab PO HS [facility] Last Admin: 06/02/17 22:24 Dose: 1 tab Valsartan (Diovan -) 40 mg PO DAILY [facility] Last Admin: 06/02/17 09:04 Dose: 40 mg Review of Systems Cardiovascular: As noted above Respiratory: denies: reports: Cough Gastrointestinal: denies: Nausea, Vomiting, Diarrhea, Constipation or Abdominal Discomfort Musculoskeletal: No Symptoms Reported Endocrine: No Symptoms Reported Vital Signs: Last Vital Signs Temp Pulse Resp BP Pulse Ox 97.4 F L 62 18 151/75 99 06/03/17 06:00 06/03/17 06:00 06/03/17 06:00 06/03/17 06:00 06/03/17 09:06 Intake & Output 05/31/17 06/01/17 06/02/17 06/03/17 23:59 23:59 23:59 23:59 Intake Total 220 670 100 50 Output Total 2 Balance 218 670 100 50 Weight 226 lb 6.4 oz Constitutional: No Distress, Calm Neck: Supple Negative JVD No Bruit Respiratory: Diminished Breath Sounds Bilaterally with Scattered Rhonchi Cardiovascular: S1 S2 Regular Rate and Rhythm Garde 2/6 LENNY Gastrointestinal: Soft Benign Normal Bowel Sounds Ext: Trace Edema Labs: CBC, BMP 06/03/17 05:30 06/03/17 05:30 Hepatic Panel Total Bilirubin 1.1 mg/dL (0.2-1.0) H D 06/03/17 05:30 AST 10 U/L (15-37) L 06/03/17 05:30 ALT 19 U/L (12-78) 06/03/17 05:30 Alkaline Phosphatase 52 U/L (45-117) 06/03/17 05:30 Albumin 3.1 g/dl (3.4-5.0) L 06/03/17 05:30 INR, PTT INR 1.02 (0.82-1.09) 05/28/17 14:45 Assessment/Plan ASSESSMENT: 1. Acute Influenza B, infection and 2. 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 Klebsiella UTI 4. Systolic/diastolic LV dysfunction with chronic class I-II NYHA classification LV failure, clinically compensated/euvolemic 5. CAD post [place], PCI (stent), angina pectoris, stable 6. HTN 7. DM 8. Hypercholesterolemia 9. CKD, with pre-renal azotemia PLAN: 1 Clinically patient is probably euvolemic to hypovolemic, avoid over diuresis , monitor renal function closely 2. Continue ASA and Plavix 3. Continue B-Blockers bur initiate Bystolic as a substitute for Toprol XL (cab be exacerbation her reactive airway disease) 4. Continue Diovan, monitor renal function closely 5. Continue Lipitor 6. Steroids and bronchodilators as per the pulmonary team 7. Antibiotics as per the ID team Edward Shelton MD
[2017-06-03] MEDS ORDERED: INSULIN (NOVOLOG) ASPART 100 UNITS/ML 10ML VIAL ONE (09:26)
[2017-06-03] MEDS: PANTOPRAZOLE 40 MG TABLET (FP) PO SCH (09:32)
[2017-06-03] MEDS: POLYETHYLENE GLYCOL 3350 119 GM BTL PO SCH (09:32)
[2017-06-03] MEDS: metoPROLOL SUCCINATE 25 MG TAB.SR.24H (FP) PO SCH (09:32)
[2017-06-03] MEDS: FUROSEMIDE 40 MG/4 ML INJECTABLE VIAL IVPUSH SCH (09:32)
[2017-06-03] MEDS: VALSARTAN 40 MG TABLET (FP) PO SCH (09:32)
[2017-06-03] MEDS: CLOPIDOGREL BISULFATE 75 MG TABLET (FP) PO SCH (09:32)
[2017-06-03] MEDS: ASPIRIN COATED 81 MG TABLET.EC PO SCH (09:32)
--- NOTE | 2017-06-03 10:05 | CONSULT ---
Admitting History and Physical - Primary Care Physician PCP: Teddy Frost - Admission History of Present Illness: Per EMR: Patient is an 82 year old female with a significant past medical history of hypertension, hld, CAD s/p MT with stents x 2, systolic and diastolic heart failure, COPD on home oxygen, intubatations x 3, diabetes mellitus and arthritis. She was admitted on 05/28/2017 for acute hypercapnic and hypoxic respiratory failure, influenza B, COPD exacerbation, and systolic heart failure exacerbation. Pt with h/o esophageal stricture, reported to staff that she chokes whenever she eats or drinks. Pt has been on cut up food and thin liquid at [facility]. 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) Cardiovascular: Yes: CAD, CHF, HTN, MT Gastrointestinal: Yes: GERD, Hiatal Hernia Endocrine: Yes: Hypothyroidism - Smoking History Smoking history: Never smoked Have you smoked in the past 12 months: No - Alcohol/Substance Use Hx Alcohol Use: No - Social History ADL: Family Assistance History of Recent Travel: Yes (arrived from [place] 2 months ago) History - Admission Reason For Visit: RESPIRATORY DISTRESS - Diagnostics X-ray: Report Reviewed (no consolidations.) - General Mental Status: Alert and Oriented, Awake and Alert, Able to Follow Commands, Forgetful (possibly.Unable to give clear hx regarding esoph stricture. Evaluated 10 yrs ago in [place]. Unclear if she has had a GI w/u since. None noted in [facility] EMR.) Attention: Intact Ability to Follow Directions: Good Head/Neck Control: WFL - Hearing Hearing: Normal Speech Evaluation - Communication Primary Language: ESTONIAN Communication: Yes: Simple Responses, Language Barrier Oral Expression Ability: Yes: Mild Impairment - Speech Production Able to Make Needs Known: Yes: WNL Intelligibility: Yes: Mildly Impaired - Speech Characteristics Voice Loudness: Mildly Soft/Quiet Voice Pitch: Yes: Normal Voice Phonatory-based Quality: Yes: Dysphonia (mild) Articulation: Yes: Precise Voice, Other Observations: Yes: Progressively Weak Voice - Language/Verbal Expression Able to Communicate Wants and Needs: Yes: WNL - Swallow Evaluation/Bedside Assessment Current Nutritional Intake: Regular, Thin Liquids Dentition: Yes: Adequate Facial Symmetry at Rest: Facial Droop Right (slight) Facial Symmetry on Retraction: Symmetrical Jaw Position: Open at Rest Against Resistance Opening: Normal Against Resistance Closing: Normal Pucker Lips: Normal Lingual Movement: Normal, Symmetric Lingual Speed of Movement: Normal Rate of Intake: Impulsive (at times with self feeding, resulting in coughing meal time. However, pt also has the flu and is coughing. Bedside evaluation is unreliable.) Bolus Size: Small Labial Seal: WFL Oral Prep Time: WFL A-P Transit: WFL Timing of Swallow: Delayed Coughing/Throat Clear: Yes (with and without po intake) Recommendations - Speech Evaluation, Impression/Plan Impression: Reported cough at times with self feeding, resulting in coughing meal time. However, pt also has the flu and is coughing. Bedside evaluation is unreliable. Pt reports h/o esoph stricture x 10 yrs ago in [place]. Family reports she coughs at home during meals. - Dysphagia Impressions/Plan Dysphagia Impressions: Risk of Aspiration, Ongoing Evaluation *Silent aspiration: cannot be R/O at bedside Dysphagia Treatment Plan: Small Bites, Chin Tuck/Down, Safe Rate, Elevate HOB during feed, Other (HOB elevated for 1 hr after meals.) Recommendations: GI Consult (when medically stable.), MBS w Esophagus (when medically stable.) - Recommendations Diet Consistency: Dysphagia Minced Medication Administration: Crushed with applesauce Liquids: Skyline Thick
--- NOTE | 2017-06-03 10:45 | CONS ---
DATE OF CONSULTATION: 06/03/2017 CONSULTATION REQUESTED BY: Hospitalist. CHIEF COMPLAINT: Dyspnea, cough, cardiovascular evaluation. HISTORY OF PRESENT ILLNESS: Patient known to our service from recent hospitalization, 82-year-old female of descent with known history of coronary artery disease, post myocardial infarction, post percutaneous coronary intervention, stenting, angina pectoris, systolic/diastolic left ventricular dysfunction with chronic class I [place] Heart [employer] classification left ventricular failure, hypertensive cardiovascular disease, diabetes mellitus, hypercholesterolemia, chronic obstructive pulmonary disease on home oxygen therapy, chronic kidney disease, degenerative joint disease, who presented to [facility] a few days ago with increasing dyspnea, cough productive of clear sputum. Patient was noted to have evidence of influenza B infection. In addition, patient was noted to have evidence of urinary tract infection. Patient continued to report persistence of dyspnea and cough. Patient reported chest heaviness which was exacerbated with cough and deep inspiration. Patient denied any orthopnea or paroxysmal nocturnal dyspnea. Patient denied any palpitations, dizziness, lightheadedness. Patient reports extreme fatigue and tiredness. PAST MEDICAL HISTORY: Coronary artery disease status post myocardial infarction status post percutaneous coronary intervention, stenting, angina pectoris, systolic/diastolic left ventricular dysfunction with chronic class I [place] Heart Association classification left ventricular failure, hypertensive cardiovascular disease, diabetes mellitus, hypercholesterolemia, chronic obstructive pulmonary disease on home oxygen therapy, chronic kidney disease, gastroesophageal reflux disease. SOCIAL HISTORY: Prior history of smoking. FAMILY HISTORY: Positive for coronary artery disease. ALLERGIES: PENICILLIN. MEDICATIONS: Medical therapy currently includes acetaminophen 650 mg every 6 hours as needed, Ventolin nebulizer, Ecotrin 81 mg once a day, Lipitor 40 mg once a day, Plavix 75 mg once a day, Lasix 40 mg IV push once a day, subcutaneous heparin 5000 units 3 times a day, insulin coverage, Solu-Medrol 40 mg IV every 6 hours, Toprol-XL 25 mg once a day, nitrofurantoin 50 mg every 6 hours, Protonix 20 mg once a day, MiraLax 17 g once a day, senna 1 tablet once a day, Diovan 40 mg once a day. REVIEW OF SYSTEMS: Head and Neck: Denies headache, photophobia, blurring of vision. Respiratory: Reports cough productive of clear sputum, expiratory wheezing. Cardiovascular: As noted above. Gastrointestinal: Denies nausea, vomiting, diarrhea, abdominal discomfort. Genitourinary: Denies frequency or urgency. Musculoskeletal: History of degenerative joint disease. PHYSICAL EXAMINATION: Vital Signs: Blood pressure is 151/75 mmHg. Pulse rate is 62 beats per minute. Temperature 97.4. Head and Neck: Pupils equally react to light and accommodation. Extraocular muscles intact. Anicteric sclerae. Negative JVD. No bruit appreciated. Chest: Bilateral coarse rhonchi. Expiratory wheezing. Diminished breath sounds at the bases. Cardiovascular: S1, S2 regular. Grade 2/6 systolic ejection murmur. No clicks or gallops. Abdomen: Soft, benign. Normoactive bowel sounds. Extremities: Trace edema. Intact distal pulses. No calf tenderness. DIAGNOSTIC DATA: Electrocardiogram reveals sinus rhythm, inferoposterior wall myocardial infarction, age indeterminate, with poor R wave progression and ST segment and T wave abnormality Chest x-ray report was noted. CBC revealed white cell count of 5.2, hemoglobin 12.0, platelets 193. Basic metabolic profile with sodium 145, potassium 4.8, BUN 40, creatinine 0.8, glucose 148 with normal liver profile. ASSESSMENT: 1. Acute influenza B infection. 2. Home oxygen-dependent chronic obstructive pulmonary disease with chronic hypercapnic respiratory failure, acute exacerbation bronchitis, reactive airway disease. 3. Urinary tract infection. 4. Systolic/diastolic left ventricular dysfunction with chronic class I-II [place] Heart Association classification left ventricular failure, clinically compensated/euvolemic. 5. Coronary artery disease post myocardial infarction, post percutaneous coronary intervention, stenting; angina pectoris, stable. 6. Hypertensive cardiovascular disease. 7. Diabetes mellitus. 8. Hypercholesterolemia. 9. Chronic kidney disease with prerenal azotemia. RECOMMENDATIONS: 1. Patient clinically is probably euvolemic to hypovolemic. Avoid overdiuresis. Monitor renal function closely. 2. Continuation of abdomen and pelvis therapy. 3. Continuation of beta lynn therapy but initiate Bystolic as a substitute for Toprol-XL since Toprol-XL can be exacerbating her reactive airway disease. 4. Continuation of Diovan and monitor renal function closely. 5. Continuation of Lipitor. 6. Steroids and bronchodilators as per the pulmonary team. 7. Antibiotic as per the ID team. Thank you for your kind referral. AMARILYS JOSE M.D. [facility]/[id number]
[2017-06-03 10:51] LABS: CHOLESTEROL 168 mg/dL (50-200); HDL CHOLESTEROL 82 mg/dL (40-60); LDL CHOLESTEROL (ONLY SJRH) 79 mg/dL (5-100); TRIGLYCERIDES 95 mg/dL (35-160)
--- NOTE | 2017-06-03 13:10 | PN ---
Progress Note (short form) - Note Progress Note: PULMONARY Still with shortness of breath, cough and wheezing but reports slowly improving. No fevers recorded. Last Vital Signs Temp Pulse Resp BP Pulse Ox 97.4 F L 62 18 151/75 99 06/03/17 06:00 06/03/17 06:00 06/03/17 06:00 06/03/17 06:00 06/03/17 09:06 Gen: less tachypneic with speaking Heart: RRR Lung: bilateral rhonchi, wheezes Abd: soft, nontender Ext: no edema CBC, BMP 06/03/17 05:30 06/03/17 05:30 Active Medications Acetaminophen (Tylenol -) 650 mg PO Q6H PRN PRN Reason: PAIN LEVEL 4 - 6 Last Admin: 06/01/17 18:07 Dose: 325 mg Albuterol Sulfate (Ventolin 0.083% Nebulizer Soln -) 1 amp NEB RQID [facility] Last Admin: 06/03/17 08:05 Dose: 1 amp Aspirin (Ecotrin -) 81 mg PO DAILY [facility] Last Admin: 06/03/17 09:32 Dose: 81 mg Atorvastatin Calcium (Lipitor -) 40 mg PO HS [facility] Last Admin: 06/02/17 22:24 Dose: 40 mg Clopidogrel Bisulfate (Plavix -) 75 mg PO DAILY [facility] Last Admin: 06/03/17 09:32 Dose: 75 mg Furosemide (Lasix Injection -) 40 mg IVPUSH DAILY [facility] Last Admin: 06/03/17 09:32 Dose: 40 mg Heparin Sodium (Porcine) (Heparin -) 5,000 unit SQ TID [facility] Last Admin: 06/03/17 05:42 Dose: 5,000 unit Insulin Aspart (Novolog Vial Sliding Scale -) 1 vial SQ ACHS [facility] PRN Reason: Protocol Last Admin: 06/03/17 11:55 Dose: 14 units Insulin Detemir (Levemir Vial) 15 units SQ BID@0700,2200 [facility] Last Admin: 06/03/17 06:20 Dose: 15 units Methylprednisolone Sodium Succinate (Solu-Medrol -) 40 mg IVPUSH Q6H-IV [facility] Last Admin: 06/03/17 09:32 Dose: 40 mg Metoprolol Succinate (Toprol Xl -) 25 mg PO DAILY [facility] Last Admin: 06/03/17 09:32 Dose: 25 mg Nitrofurantoin Macrocrystals (Macrodantin -) 50 mg PO Q6HPO [facility] Last Admin: 06/03/17 11:49 Dose: 50 mg Pantoprazole Sodium (Protonix -) 20 mg PO DAILY [facility] Last Admin: 06/03/17 09:32 Dose: 20 mg Polyethylene Glycol (Miralax (For Daily Use) -) 17 gm PO DAILY [facility] Last Admin: 06/03/17 09:32 Dose: 17 gm Senna (Senna -) 1 tab PO HS [facility] Last Admin: 06/02/17 22:24 Dose: 1 tab Valsartan (Diovan -) 40 mg PO DAILY [facility] Last Admin: 06/03/17 09:32 Dose: 40 mg A/P Acute on Chronic Hypoxic and Hypercapneic Respiratory Failure Influenza B Acute COPD Exacerbation Acute on Chronic Systolic Heart Failure CAD +Troponins likely Demand Ischemia HTN DM - completed tamiflu - continue medrol at current dose - inhaled bronchodilators standing and PRN - BiPAP as needed - O2 to keep SpO2 >90% - continue lasix - monitor urine output, creatinine - glucose control while on systemic steroids - ASA, plavix - PO as tolerated - DVT prophylaxis
[2017-06-03] MEDS ORDERED: PT OWN MED DRAWER 7, Y5N ONE (23:33)
[2017-06-03] MEDS: ATORVASTATIN CA 40 MG TABLET (FP) PO SCH (23:58)
[2017-06-03] MEDS: SENNOSIDES 8.6MG TABLET (FP) PO SCH (23:58)
[2017-06-04] MEDS: INSULIN SLIDING SCALE (NOVOLOG) 1 VIAL SQ SCH ×5 (00:04→21:47)
[2017-06-04] MEDS: INSULIN DETEMIR 100 UNITS/ML MDV SQ SCH ×3 (00:04→21:48)
[2017-06-04] MEDS ORDERED: METOPROLOL TARTRATE 5 MG/5 ML VIAL IVPUSH ONE (02:04)
[2017-06-04] MEDS ORDERED: dilTIAZem HCL 50 MG/10 ML - 10 ML VIAL IVPUSH PRN (03:03)
[2017-06-04] MEDS: methylPREDNISolone NA SUCC 40 MG/1 ML VIAL IVPUSH SCH ×3 (04:59→17:32)
[2017-06-04] MEDS: HEPARIN NA (PORCINE) 5,000 UNITS/ML 1ML VIAL SQ SCH (06:59)
[2017-06-04] MEDS: NITROFURANTOIN MACROCRYSTAL 50 MG CAPSULE (FP) PO SCH ×4 (07:05→23:15)
[2017-06-04] MEDS: ALBUTEROL SO4 0.083% IH SOL 2.5 MG/3 ML VIAL.NEB. NEB SCH ×4 (07:20→20:30)
[2017-06-04 07:51] LABS: ALBUMIN 3.1 g/dl (3.4-5.0); BILIRUBIN,TOTAL 1.3 mg/dL (0.2-1.0); BLOOD UREA NITROGEN 39 mg/dL (7-18); CALCIUM 9.1 mg/dL (8.5-10.1); CHLORIDE 91 mmol/L (98-107); CREATININE 0.9 mg/dL (0.55-1.02); GLUCOSE,RANDOM 237 mg/dL (74-106); POTASSIUM 4.7 mmol/L (3.5-5.1); SGOT/AST 10 U/L (15-37); SGPT/ALT 19 U/L (12-78); SODIUM 143 mmol/L (136-145)
[2017-06-04 07:52] LABS: ALK PHOS 52 U/L (45-117); TOT PROT 7.1 g/dl (6.4-8.2)
[2017-06-04 09:07] LABS: BASO % 0.3 % (0-2.0); EOS % 0.1 % (0-4.5); HEMOGLOBIN 12.8 GM/dL (10.7-15.3); LYMPH % 6.1 % (8-40); MCHC 29.7 g/dl (32.0-36.0); MEAN CELL VOLUME 66.5 fl (80-96); MEAN PLT VOLUME 9.2 fl (7.5-11.1); MONO % 3.7 % (3.8-10.2); NEUT % 89.8 % (42.8-82.8); PLATELET COUNT 209 K/MM3 (134-434); RBC 6.46 M/mm3 (3.60-5.2); RDW 18.9 % (11.6-15.6); WHITE BLOOD COUNT 5.2 K/mm3 (4.0-10.0)
[2017-06-04 09:11] LABS: MCH 19.8 pg (25.7-33.7)
[2017-06-04] MEDS ORDERED: PT OWN MED DRAWER 7, Y5N ONE (09:19)
[2017-06-04] MEDS: ASPIRIN COATED 81 MG TABLET.EC PO SCH (09:22)
[2017-06-04] MEDS: CLOPIDOGREL BISULFATE 75 MG TABLET (FP) PO SCH (09:22)
[2017-06-04] MEDS: VALSARTAN 40 MG TABLET (FP) PO SCH (09:22)
[2017-06-04] MEDS: PANTOPRAZOLE 40 MG TABLET (FP) PO SCH (09:22)
[2017-06-04] MEDS: FUROSEMIDE 40 MG/4 ML INJECTABLE VIAL IVPUSH SCH (09:23)
[2017-06-04] MEDS: POLYETHYLENE GLYCOL 3350 119 GM BTL PO SCH (09:23)
[2017-06-04 09:44] LABS: ANION GAP 3 (8-16); CO2 49 mmol/L (21-32)
[2017-06-04] MEDS ORDERED: NEBIVOLOL 10 MG TABLET (FP) PO SCH (10:00)
--- NOTE | 2017-06-04 10:30 | EKG ---
Test Reason : Blood Pressure : / mmHG Vent. Rate : 088 BPM Atrial Rate : 060 BPM P-R Int : 000 ms QRS Dur : 148 ms QT Int : 396 ms P-R-T Axes : 000 -63 087 degrees QTc Int : 479 ms ATRIAL FIBRILLATION RIGHT BUNDLE BRANCH BLOCK LEFT ANTERIOR FASCICULAR BLOCK BIFASCICULAR BLOCK MODERATE VOLTAGE CRITERIA FOR LVH, MAY BE NORMAL VARIANT CANNOT RULE OUT INFERIOR INFARCT (CITED ON OR BEFORE 28-MAY-2017) ANTERIOR INFARCT (CITED ON OR BEFORE 28-MAY-2017) ABNORMAL ECG WHEN COMPARED WITH ECG OF 29-MAY-2017 09:38, ATRIAL FIBRILLATION HAS REPLACED SINUS RHYTHM SERIAL CHANGES OF ANTERIOR INFARCT PRESENT Confirmed by BREONNA PETTIT, JOE ([id number]) on 06/04/2017 10:30:18 AM Referred By: Confirmed By:JOE RAVI MD
--- NOTE | 2017-06-04 10:41 | PN ---
Progress Note, ELEVATOR CONDUCTOR - Note Progress Note: Selected Entries 06/03/17 06/03/17 06/03/17 02:00 06:00 10:00 Breakfast Lunch Supper Temperature 98.5 F 97.4 F L 97.8 F 06/03/17 06/03/17 06/03/17 10:20 14:29 17:00 Breakfast 75% Lunch 50% Supper Temperature 97.8 F 98.2 F 06/03/17 06/03/17 06/04/17 18:28 22:00 02:00 Breakfast Lunch Supper 50% Temperature 97.6 F 97.7 F 06/04/17 06:00 Breakfast Lunch Supper Temperature 98.4 F Laboratory Tests 06/04/17 05:35 WBC 5.2 Pt reports coughing at home on PO diet. On chopped/nectar diet. 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 Pt with cough. Pt not clearly aspirating. Bedside evaluation is not conclusive. She seems to be coughing less but may be related to overall medically improving. GI evaluation/MBS with esophagus in future.
--- NOTE | 2017-06-04 12:26 | PN ---
Progress Note, Physician History of Present Illness: Episodes of rapid afib overnight requiring IV Cardizem for rate-control. Dyspnea , cough and wheeze slowly improving. - Current Medication List Current Medications: Active Medications Acetaminophen (Tylenol -) 650 mg PO Q6H PRN PRN Reason: PAIN LEVEL 4 - 6 Last Admin: 06/01/17 18:07 Dose: 325 mg Albuterol Sulfate (Ventolin 0.083% Nebulizer Soln -) 1 amp NEB RQID [facility] Last Admin: 06/04/17 07:20 Dose: 1 amp Aspirin (Ecotrin -) 81 mg PO DAILY [facility] Last Admin: 06/04/17 09:22 Dose: 81 mg Atorvastatin Calcium (Lipitor -) 40 mg PO HS [facility] Last Admin: 06/03/17 23:58 Dose: 40 mg Clopidogrel Bisulfate (Plavix -) 75 mg PO DAILY [facility] Last Admin: 06/04/17 09:22 Dose: 75 mg Diltiazem HCl (Cardizem Injection -) 10 mg IVPUSH Q4H PRN PRN Reason: HR > 120 Furosemide (Lasix Injection -) 40 mg IVPUSH DAILY [facility] Last Admin: 06/04/17 09:23 Dose: 40 mg Heparin Sodium (Porcine) (Heparin -) 5,000 unit SQ TID [facility] Last Admin: 06/04/17 06:59 Dose: 5,000 unit Insulin Aspart (Novolog Vial Sliding Scale -) 1 vial SQ ACHS [facility] PRN Reason: Protocol Last Admin: 06/04/17 12:17 Dose: 12 units Insulin Detemir (Levemir Vial) 20 units SQ BID@0700,2200 [facility] Last Admin: 06/04/17 06:58 Dose: 20 units Methylprednisolone Sodium Succinate (Solu-Medrol -) 40 mg IVPUSH Q6H-IV [facility] Last Admin: 06/04/17 09:23 Dose: 40 mg Nebivolol (Bystolic -) 10 mg PO DAILY [facility] Last Admin: 06/04/17 09:22 Dose: 10 mg Nitrofurantoin Macrocrystals (Macrodantin -) 50 mg PO Q6HPO [facility] Last Admin: 06/04/17 12:21 Dose: 50 mg Pantoprazole Sodium (Protonix -) 20 mg PO DAILY [facility] Last Admin: 06/04/17 09:22 Dose: 20 mg Polyethylene Glycol (Miralax (For Daily Use) -) 17 gm PO DAILY [facility] Last Admin: 06/04/17 09:23 Dose: 17 gm Senna (Senna -) 1 tab PO HS [facility] Last Admin: 06/03/17 23:58 Dose: 1 tab Valsartan (Diovan -) 40 mg PO DAILY [facility] Last Admin: 06/04/17 09:22 Dose: 40 mg - Objective Vital Signs: Vital Signs Temperature 98.4 F 06/04/17 10:00 Pulse Rate 63 06/04/17 10:00 Respiratory Rate 18 06/04/17 10:00 Blood Pressure 137/58 06/04/17 10:00 O2 Sat by Pulse Oximetry (%) 96 06/03/17 21:00 Constitutional: Yes: No Distress, Calm Neck: Yes: Supple Cardiovascular: Yes: Pulse Irregular Respiratory: Yes: Regular, Diminished, On Nasal O2 Gastrointestinal: Yes: Normal Bowel Sounds, Soft, Abdomen, Obese Edema: No Labs: CBC, BMP 06/04/17 05:35 06/04/17 05:35 INR, PTT INR 1.02 (0.82-1.09) 05/28/17 14:45 - ....Imaging EKG: Report Reviewed (EKG: Afib @ 88 RBBB, LAFB, mod LVH Tele: Rapid afib) Problem List - Problems (1) Paroxysmal atrial fibrillation with rapid ventricular response Code(s): I48.0 - PAROXYSMAL ATRIAL FIBRILLATION (2) Acute on chronic diastolic (congestive) heart failure Code(s): I50.33 - ACUTE ON CHRONIC DIASTOLIC (CONGESTIVE) HEART FAILURE (3) Acute on chronic respiratory failure with hypoxia and hypercapnia Code(s): J96.21 - ACUTE AND CHRONIC RESPIRATORY FAILURE WITH HYPOXIA; J96.22 - ACUTE AND CHRONIC RESPIRATORY FAILURE WITH HYPERCAPNIA (4) COPD exacerbation Code(s): J44.1 - CHRONIC OBSTRUCTIVE PULMONARY DISEASE W (ACUTE) EXACERBATION (5) ASHD (arteriosclerotic heart disease) Code(s): I25.10 - ATHSCL HEART DISEASE OF [place] CORONARY ARTERY W/O ANG PCTRS (6) Diabetes mellitus Code(s): E11.9 - TYPE 2 DIABETES MELLITUS WITHOUT COMPLICATIONS Qualifiers: Diabetes mellitus type: type 2 Diabetes mellitus complication status: without complication Diabetes mellitus mcc insulin use: without adjunct faculty for medical terminology use Qualified Code(s): E11.9 - Type 2 diabetes mellitus without complications (7) HTN (hypertension) Code(s): I10 - ESSENTIAL (PRIMARY) HYPERTENSION Qualifiers: Hypertension type: essential hypertension Qualified Code(s): I10 - Essential (primary) hypertension (8) History of coronary artery stent placement Code(s): Z95.5 - PRESENCE OF CORONARY ANGIOPLASTY IMPLANT AND GRAFT (9) Hyperlipidemia Code(s): E78.5 - HYPERLIPIDEMIA, UNSPECIFIED Qualifiers: Hyperlipidemia type: pure hypercholesterolemia Qualified Code(s): E78.00 - Pure hypercholesterolemia, unspecified; E78.0 - Pure hypercholesterolemia (10) 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 infarction Code(s): I25.2 - OLD MYOCARDIAL INFARCTION (11) TIA (transient ischemic attack) Code(s): G45.9 - TRANSIENT CEREBRAL ISCHEMIC ATTACK, UNSPECIFIED Qualifiers: Transient cerebral ischemia type: unspecified Qualified Code(s): G45.9 - Transient cerebral ischemic attack, unspecified (12) Demand ischemia Code(s): I24.8 - OTHER FORMS OF ACUTE ISCHEMIC HEART DISEASE (13) Influenza B Code(s): J10.1 - FLU DUE TO OTH IDENT INFLUENZA VIRUS W OTH RESP MANIFEST Assessment/Plan 10/2013 rotational atherectomy and YURIY PCI of mLAD and Diag, residual prox LCx 90-95% calcific, 30-50% LM disease Echocardiography 10/2013 mildly reduced LV function, apical severe akinesia, anterior mod hypokinesia, mild to moderate MR, mild to moderate right atrial enlargement, RVSP 50-60 (likely LAD infarct), repeat echocardiography dated 05/19 noted no significant change 1. Paroxysmal atrial fibrillation with RVR [id number] 2. Acute on Chronic Hypoxic and Hypercapneic Respiratory Failure 3. Influenza B 4. Acute COPD Exacerbation 5. Systolic/diastolic LV dysfunction with chronic class I-II NYHA classification LV failure, clinically compensated/euvolemic 6. CAD post IA, PCI (stent), demand ischemia 7. HTN 8. DM 9. Hypercholesterolemia 10. UTI PLAN: 1 Decrease Lasix 40 po qd with monitor diuretic response, renal fxn and electrolytes 2. Change ASA and Plavix to Eliquis 5 bid given elevated stroke risk score and stable CAD history 3. Change Bystolic back to Lopressor 25 bid and assess clinical response 4. Continue Diovan 40 qd 5. Continue Lipitor 40 qhs 6. IV steroids with GI protection, bronchodilators, Bipap and O2 as needed per the pulmonary team 7. Antibiotics and Tamiflu as per the ID team
--- NOTE | 2017-06-04 12:54 | PN ---
Progress Note, Physician History of Present Illness: pulmonary awake,still dyspneic on nasal o2 - Current Medication List Current Medications: Active Medications Acetaminophen (Tylenol -) 650 mg PO Q6H PRN PRN Reason: PAIN LEVEL 4 - 6 Last Admin: 06/01/17 18:07 Dose: 325 mg Albuterol Sulfate (Ventolin 0.083% Nebulizer Soln -) 1 amp NEB RQID [facility] Last Admin: 06/04/17 11:10 Dose: 1 amp Apixaban (Eliquis -) 5 mg PO BID [facility] Atorvastatin Calcium (Lipitor -) 40 mg PO HS [facility] Last Admin: 06/03/17 23:58 Dose: 40 mg Diltiazem HCl (Cardizem Injection -) 10 mg IVPUSH Q4H PRN PRN Reason: HR > 120 Furosemide (Lasix -) 40 mg PO DAILY [facility] Insulin Aspart (Novolog Vial Sliding Scale -) 1 vial SQ ACHS [facility] PRN Reason: Protocol Last Admin: 06/04/17 12:17 Dose: 12 units Insulin Detemir (Levemir Vial) 20 units SQ BID@0700,2200 [facility] Last Admin: 06/04/17 06:58 Dose: 20 units Methylprednisolone Sodium Succinate (Solu-Medrol -) 40 mg IVPUSH Q6H-IV [facility] Last Admin: 06/04/17 09:23 Dose: 40 mg Nebivolol (Bystolic -) 10 mg PO DAILY [facility] Last Admin: 06/04/17 09:22 Dose: 10 mg Nitrofurantoin Macrocrystals (Macrodantin -) 50 mg PO Q6HPO [facility] Last Admin: 06/04/17 12:21 Dose: 50 mg Pantoprazole Sodium (Protonix -) 20 mg PO DAILY [facility] Last Admin: 06/04/17 09:22 Dose: 20 mg Polyethylene Glycol (Miralax (For Daily Use) -) 17 gm PO DAILY [facility] Last Admin: 06/04/17 09:23 Dose: 17 gm Senna (Senna -) 1 tab PO HS [facility] Last Admin: 06/03/17 23:58 Dose: 1 tab Valsartan (Diovan -) 40 mg PO DAILY [facility] Last Admin: 06/04/17 09:22 Dose: 40 mg - Objective Vital Signs: Vital Signs Temperature 98.4 F 06/04/17 10:00 Pulse Rate 63 06/04/17 10:00 Respiratory Rate 18 06/04/17 10:00 Blood Pressure 137/58 06/04/17 10:00 O2 Sat by Pulse Oximetry (%) 95 06/04/17 12:48 Constitutional: Yes: Well Nourished, Calm Eyes: Yes: WNL HENT: Yes: WNL, Tonsillar Exudate Cardiovascular: Yes: Pulse Irregular, S1, S2 Respiratory: Yes: Rhonchi (scattered rubi rhonchi) Gastrointestinal: Yes: Normal Bowel Sounds, Soft Extremities: Yes: WNL Edema: No Labs: CBC, BMP 06/04/17 05:35 06/04/17 05:35 INR, PTT INR 1.02 (0.82-1.09) 05/28/17 14:45 Problem List - Problems (1) Acute on chronic respiratory failure with hypoxia and hypercapnia Code(s): J96.21 - ACUTE AND CHRONIC RESPIRATORY FAILURE WITH HYPOXIA; J96.22 - ACUTE AND CHRONIC RESPIRATORY FAILURE WITH HYPERCAPNIA (2) Influenza B Code(s): J10.1 - FLU DUE TO OTH IDENT INFLUENZA VIRUS W OTH RESP MANIFEST (3) Shortness of breath Code(s): R06.02 - SHORTNESS OF BREATH (4) ASHD (arteriosclerotic heart disease) Code(s): I25.10 - ATHSCL HEART DISEASE OF [place] CORONARY ARTERY W/O ANG PCTRS (5) HTN (hypertension) Code(s): I10 - ESSENTIAL (PRIMARY) HYPERTENSION Qualifiers: Hypertension type: essential hypertension Qualified Code(s): I10 - Essential (primary) hypertension (6) History of coronary artery stent placement Code(s): Z95.5 - PRESENCE OF CORONARY ANGIOPLASTY IMPLANT AND GRAFT (7) Respiratory distress Code(s): R06.00 - DYSPNEA, UNSPECIFIED (8) COPD exacerbation Code(s): J44.1 - CHRONIC OBSTRUCTIVE PULMONARY DISEASE W (ACUTE) EXACERBATION (9) CHF exacerbation Code(s): I50.9 - HEART FAILURE, UNSPECIFIED Qualifiers: Congestive heart failure type: combined Qualified Code(s): I50.43 - Acute on chronic combined systolic (congestive) and diastolic (congestive) heart failure Assessment/Plan ASSESSMENT AND PLAN: Acute on Chronic Hypoxic and Hypercapneic Respiratory Failure Influenza B Acute COPD Exacerbation Acute on Chronic Systolic Heart Failure Afib CAD +Troponins likely Demand Ischemia HTN DM - medrol taper - inhaled bronchodilators standing and PRN - BiPAP as needed - O2 to keep SpO2 >90% - monitor ABGs - lasix - monitor urine output, creatinine - glucose control while on systemic steroids - PO as tolerated - DVT prophylaxis - rate control DR CAAL
--- NOTE | 2017-06-04 13:29 | PN ---
Physical Exam: SUBJECTIVE: Patient seen and examined. She says her breathing is better. She appears less labored OBJECTIVE: events: - tele: episode of rapid afib overnight, iv cardizem Vital Signs Period Temp Pulse Resp BP Sys/Gardner Pulse Ox Last 24 Hr 97.6 F-98.4 F 58-109 18-18 102-137/42-63 95-98 PE Neuro: alert, awake, cn 2-12intact Pulm: bibasilar rhonchi CV: s1 s2 rrr Abd: s nt nd + bs Ext: warm no le edema Laboratory Results - last 24 hr 06/03/17 06/04/17 06/04/17 17:13 00:03 05:35 WBC 5.2 RBC 6.46 H Hgb 12.8 Hct 43.0 MCV 66.5 L MCH 19.8 L MCHC 29.7 L RDW 18.9 H Plt Count 209 MPV 9.2 Neutrophils % 89.8 H Lymphocytes % 6.1 L Monocytes % 3.7 L Eosinophils % 0.1 D Basophils % 0.3 Sodium Potassium Chloride Carbon Dioxide Anion Gap BUN Creatinine Creat Clearance w eGFR POC Glucometer 262 344 Random Glucose Calcium Total Bilirubin AST ALT Alkaline Phosphatase Total Protein Albumin 06/04/17 06/04/17 06/04/17 05:35 06:56 11:37 WBC RBC Hgb Hct MCV MCH MCHC RDW Plt Count MPV Neutrophils % Lymphocytes % Monocytes % Eosinophils % Basophils % Sodium 143 Potassium 4.7 Chloride 91 L Carbon Dioxide 49 H Anion Gap 3 L BUN 39 H Creatinine 0.9 Creat Clearance w eGFR > 60 POC Glucometer 233 308 Random Glucose 237 H Calcium 9.1 Total Bilirubin 1.3 H AST 10 L ALT 19 Alkaline Phosphatase 52 Total Protein 7.1 Albumin 3.1 L Active Medications Generic Name Dose Route Start Last Admin Trade Name Freq PRN Reason Stop Dose Admin Acetaminophen 650 mg 06/01/17 17:47 06/01/17 18:07 Tylenol - PO 325 mg Q6H PRN Administration PAIN LEVEL 4 - 6 Albuterol Sulfate 1 amp 05/29/17 20:00 06/04/17 11:10 Ventolin 0.083% Nebulizer Soln - NEB 1 amp RQID [facility] Administration Apixaban 5 mg 06/04/17 12:45 Eliquis - PO BID [facility] Atorvastatin Calcium 40 mg 05/29/17 22:00 02/06/18 23:58 Lipitor - PO 40 mg HS [facility] Administration Diltiazem HCl 10 mg 06/04/17 03:03 Cardizem Injection - IVPUSH Q4H PRN HR > 120 Furosemide 40 mg 06/05/17 10:00 Lasix - PO DAILY [facility] Insulin Aspart 1 vial 06/02/17 11:51 06/04/17 12:17 Novolog Vial Sliding Scale - SQ 12 units ACHS [facility] Administration Protocol Insulin Detemir 20 units 06/03/17 22:00 06/04/17 06:58 Levemir Vial SQ 20 units BID@0700,2200 [facility] Administration Methylprednisolone Sodium Succinate 40 mg 06/04/17 18:00 Solu-Medrol - IVPUSH Q8H-IV [facility] Nebivolol 10 mg 06/04/17 10:00 06/04/17 09:22 Bystolic - PO 10 mg DAILY [facility] Administration Nitrofurantoin Macrocrystals 50 mg 06/02/17 18:00 06/04/17 12:21 Macrodantin - PO 50 mg Q6HPO [facility] Administration Pantoprazole Sodium 20 mg 05/30/17 10:00 06/04/17 09:22 Protonix - PO 20 mg DAILY [facility] Administration Polyethylene Glycol 17 gm 06/02/17 10:00 06/04/17 09:23 Miralax (For Daily Use) - PO 17 gm DAILY [facility] Administration Senna 1 tab 06/01/17 22:00 06/03/17 23:58 Senna - PO 1 tab HS [facility] Administration Valsartan 40 mg 05/30/17 10:00 06/04/17 09:22 Diovan - PO 40 mg DAILY [facility] Administration Assessment: 82 year-old female with a PMH significant for HTN, HLD, CAD s/p ME s /p stents x 2 (2013), systolic and diastolic heart failure, COPD on home O2 ( intubations x 3), IDDM, and arthritis. Admitted for acute hypercapnic and hypoxic respiratory failure, influenza B, COPD exacerbation, and systolic heart failure exacerbation. Plan: 1. Acute on chronic hypercapnic and hypoxic respiratory failure - Taper medrol 40mg q8 - Bipap - Completed Tamiflu - Duonebs siva 2. Kelbsiella UTI - Complete 7 days of macrobid 50mg q6 (day 2) 3. Acute on chronic systolic and diastolic heart failure - Transition to lasix 40mg daily - Stop bystolic - Start lopressor 25mg BID 4. Hypertension - Controlled - Diovan, lopressor 5. Hyperlipidemia - Continue Lipitor 6. CAD s/p ME s/p stents - Stop ASA/plavix - Start eliquis 5mg BID 7. Dysphagia - Hx of esophageal stricture, chronic - Dysphagia minced diet with nectar thick fluids - MBS when more stable 8. DM II - Elevated sugar d/t steroids - Levemir 20units BID - ISS, BGM ACHS 9. DVT ppx - On AC Visit type - Emergency Visit Emergency Visit: Yes ED Registration Date: 05/28/17 Care time: The patient presented to the Emergency Department on the above date and was hospitalized for further evaluation of their emergent condition. - New Patient This patient is new to me today: No - Critical Care Critical Care patient: No
[2017-06-04] MEDS: APIXABAN 5 MG TABLET PO SCH ×2 (15:19→21:47)
[2017-06-04] MEDS: ATORVASTATIN CA 40 MG TABLET (FP) PO SCH (21:47)
[2017-06-04] MEDS: METOPROLOL TARTRATE 25 MG TABLET (FP) PO SCH (21:47)
[2017-06-04] MEDS: SENNOSIDES 8.6MG TABLET (FP) PO SCH (21:47)
[2017-06-05] MEDS: methylPREDNISolone NA SUCC 40 MG/1 ML VIAL IVPUSH SCH ×3 (02:00→18:09)
[2017-06-05] MEDS: NITROFURANTOIN MACROCRYSTAL 50 MG CAPSULE (FP) PO SCH ×4 (06:14→23:31)
[2017-06-05] MEDS: INSULIN SLIDING SCALE (NOVOLOG) 1 VIAL SQ SCH ×4 (06:14→21:01)
[2017-06-05] MEDS: INSULIN DETEMIR 100 UNITS/ML MDV SQ SCH ×2 (06:17→21:01)
[2017-06-05] MEDS ORDERED: INSULIN (NOVOLOG) ASPART 100 UNITS/ML 10ML VIAL ONE (06:28)
[2017-06-05] MEDS: ALBUTEROL SO4 0.083% IH SOL 2.5 MG/3 ML VIAL.NEB. NEB SCH ×4 (07:35→20:50)
[2017-06-05] MEDS: FUROSEMIDE 40 MG TABLET (FP) PO SCH (09:45)
[2017-06-05] MEDS: METOPROLOL TARTRATE 25 MG TABLET (FP) PO SCH ×2 (09:46→21:01)
[2017-06-05] MEDS: APIXABAN 5 MG TABLET PO SCH ×2 (09:46→21:01)
[2017-06-05] MEDS: POLYETHYLENE GLYCOL 3350 119 GM BTL PO SCH (09:46)
[2017-06-05] MEDS: PANTOPRAZOLE 40 MG TABLET (FP) PO SCH (09:46)
[2017-06-05] MEDS: VALSARTAN 40 MG TABLET (FP) PO SCH (09:46)
--- NOTE | 2017-06-05 10:39 | PN ---
Progress Note, Physician Chief Complaint: Events noted Episodes of AF History of Present Illness: Patient was seen and examined. Awake and alert. Chart was reviewed Denies chest pain or SOB - Current Medication List Current Medications: Active Medications Acetaminophen (Tylenol -) 650 mg PO Q6H PRN PRN Reason: PAIN LEVEL 4 - 6 Last Admin: 06/01/17 18:07 Dose: 325 mg Albuterol Sulfate (Ventolin 0.083% Nebulizer Soln -) 1 amp NEB RQID [facility] Last Admin: 06/05/17 07:35 Dose: 1 amp Apixaban (Eliquis -) 5 mg PO BID [facility] Last Admin: 06/05/17 09:46 Dose: 5 mg Atorvastatin Calcium (Lipitor -) 40 mg PO HS [facility] Last Admin: 06/04/17 21:47 Dose: 40 mg Diltiazem HCl (Cardizem Injection -) 10 mg IVPUSH Q4H PRN PRN Reason: HR > 120 Furosemide (Lasix -) 40 mg PO DAILY [facility] Last Admin: 06/05/17 09:45 Dose: 40 mg Insulin Aspart (Novolog Vial Sliding Scale -) 1 vial SQ ACHS [facility] PRN Reason: Protocol Last Admin: 06/05/17 06:14 Dose: 8 units Insulin Detemir (Levemir Vial) 20 units SQ BID@0700,2200 [facility] Last Admin: 06/05/17 06:17 Dose: 20 units Methylprednisolone Sodium Succinate (Solu-Medrol -) 40 mg IVPUSH Q8H-IV [facility] Last Admin: 06/05/17 09:45 Dose: 40 mg Metoprolol Tartrate (Lopressor -) 25 mg PO BID [facility] Last Admin: 06/05/17 09:46 Dose: 25 mg Nitrofurantoin Macrocrystals (Macrodantin -) 50 mg PO Q6HPO [facility] Last Admin: 06/05/17 06:14 Dose: 50 mg Pantoprazole Sodium (Protonix -) 20 mg PO DAILY [facility] Last Admin: 06/05/17 09:46 Dose: 20 mg Polyethylene Glycol (Miralax (For Daily Use) -) 17 gm PO DAILY [facility] Last Admin: 06/05/17 09:46 Dose: 17 gm Senna (Senna -) 1 tab PO HS [facility] Last Admin: 06/04/17 21:47 Dose: 1 tab Valsartan (Diovan -) 40 mg PO DAILY [facility] Last Admin: 06/05/17 09:46 Dose: 40 mg - Objective Vital Signs: Vital Signs Temperature 97.4 F L 06/05/17 06:00 Pulse Rate 67 06/05/17 06:00 Respiratory Rate 20 06/05/17 06:00 Blood Pressure 113/65 06/05/17 06:00 O2 Sat by Pulse Oximetry (%) 98 06/04/17 21:00 Eyes: Yes: PERRL Neck: Yes: Supple Cardiovascular: Yes: Pulse Irregular, S1, S2 Respiratory: Yes: Diminished Gastrointestinal: Yes: Normal Bowel Sounds, Soft. No: Tenderness Edema: No Labs: CBC, BMP 06/04/17 05:35 06/04/17 05:35 Problem List - Problems (1) Acute hypercapnic respiratory failure Code(s): J96.02 - ACUTE RESPIRATORY FAILURE WITH HYPERCAPNIA (2) Acute on chronic diastolic (congestive) heart failure Code(s): I50.33 - ACUTE ON CHRONIC DIASTOLIC (CONGESTIVE) HEART FAILURE (3) Acute on chronic respiratory failure with hypoxia and hypercapnia Code(s): J96.21 - ACUTE AND CHRONIC RESPIRATORY FAILURE WITH HYPOXIA; J96.22 - ACUTE AND CHRONIC RESPIRATORY FAILURE WITH HYPERCAPNIA (4) Demand ischemia Code(s): I24.8 - OTHER FORMS OF ACUTE ISCHEMIC HEART DISEASE (5) Influenza B Code(s): J10.1 - FLU DUE TO OTH IDENT INFLUENZA VIRUS W OTH RESP MANIFEST (6) Paroxysmal atrial fibrillation with rapid ventricular response Code(s): I48.0 - PAROXYSMAL ATRIAL FIBRILLATION (7) ASHD (arteriosclerotic heart disease) Code(s): I25.10 - ATHSCL HEART DISEASE OF [place] CORONARY ARTERY W/O ANG PCTRS (8) [id number] kidney injury Code(s): N17.9 - ACUTE KIDNEY FAILURE, UNSPECIFIED; N18.9 - CHRONIC KIDNEY DISEASE, UNSPECIFIED Qualifiers: Chronic kidney disease stage: stage 2 (mild) (9) Diabetes mellitus Code(s): E11.9 - TYPE 2 DIABETES MELLITUS WITHOUT COMPLICATIONS Qualifiers: Diabetes mellitus type: type 2 Diabetes mellitus complication status: without complication Diabetes mellitus emt intermediate insulin use: without emt intermediate use Qualified Code(s): E11.9 - Type 2 diabetes mellitus without complications (10) HTN (hypertension) Code(s): I10 - ESSENTIAL (PRIMARY) HYPERTENSION Qualifiers: Hypertension type: essential hypertension Qualified Code(s): I10 - Essential (primary) hypertension (11) History of coronary artery stent placement Code(s): Z95.5 - PRESENCE OF CORONARY ANGIOPLASTY IMPLANT AND GRAFT (12) Hyperlipidemia Code(s): E78.5 - HYPERLIPIDEMIA, UNSPECIFIED Qualifiers: Hyperlipidemia type: pure hypercholesterolemia Qualified Code(s): E78.00 - Pure hypercholesterolemia, unspecified; E78.0 - Pure hypercholesterolemia (13) TIA (transient ischemic attack) Code(s): G45.9 - TRANSIENT CEREBRAL ISCHEMIC ATTACK, UNSPECIFIED Qualifiers: Transient cerebral ischemia type: unspecified Qualified Code(s): G45.9 - Transient cerebral ischemic attack, unspecified Assessment/Plan 1. Paroxysmal atrial fibrillation with RVR [id number] 2. Acute on Chronic Hypoxic and Hypercapneic Respiratory Failure 3. Influenza B 4. Acute COPD Exacerbation 5. Systolic/diastolic LV dysfunction with chronic class I-II NYHA classification LV failure, clinically compensated/euvolemic 6. CAD post [place], PCI (stent), demand ischemia 7. HTN 8. DM 9. Hypercholesterolemia 10. UTI PLAN: 1 Continue Lasix with monitoring renal function and electrolytes 2. Continue Eliquis 5 bid given elevated stroke risk score 3. Continue Lopressor 25 bid 4. Continue Diovan 40 qd 5. Continue Lipitor 40 qhs 6. IV steroids with GI protection, bronchodilators, Bipap and O2 7. Antibiotics and Tamiflu as per the ID service Further plans are to follow. Patient was seen and examined for 25 minutes Camilo Bergeron MD
--- NOTE | 2017-06-05 12:54 | PN ---
Physical Exam: SUBJECTIVE: Patient seen and examined. Pt complains of worsening lower ext pain and tenderness. Events: - Remains Hypoxic RA 70's - Tele: sinus bart OBJECTIVE: Vital Signs Period Temp Pulse Resp BP Sys/Gardner Pulse Ox Last 24 Hr 97.3 F-98.7 F 57-69 18-22 113-137/46-72 95-99 PE Neuro: alert, awake, cn 2-12intact Pulm: bibasilar rhonchi + wheezing CV: s1 s2 rrr Abd: s nt nd + bs Ext: bilateral calf tenderness to palpation LLE tenderness from calf to knee + DP pulses, warm Skin: R ankle discoloration Laboratory Results - last 24 hr 06/04/17 06/04/17 06/05/17 16:12 20:52 06:06 POC Glucometer 297 274 243 06/05/17 11:52 POC Glucometer 269 Active Medications Generic Name Dose Route Start Last Admin Trade Name Freq PRN Reason Stop Dose Admin Acetaminophen 650 mg 06/01/17 17:47 06/01/17 18:07 Tylenol - PO 325 mg Q6H PRN Administration PAIN LEVEL 4 - 6 Albuterol Sulfate 1 amp 05/29/17 20:00 06/05/17 11:45 Ventolin 0.083% Nebulizer Soln - NEB 1 amp RQID RYANN Administration Apixaban 5 mg 06/04/17 15:15 06/05/17 09:46 Eliquis - PO 5 mg BID RYANN Administration Atorvastatin Calcium 40 mg 05/29/17 22:00 06/04/17 21:47 Lipitor - PO 40 mg HS RYANN Administration Diltiazem HCl 10 mg 06/04/17 03:03 Cardizem Injection - IVPUSH Q4H PRN HR > 120 Furosemide 40 mg 06/05/17 10:00 06/05/17 09:45 Lasix - PO 40 mg DAILY RYANN Administration Insulin Aspart 1 vial 06/02/17 11:51 06/05/17 11:53 Novolog Vial Sliding Scale - SQ 10 units ACHS RYANN Administration Protocol Insulin Detemir 20 units 06/03/17 22:00 06/05/17 06:17 Levemir Vial SQ 20 units BID@0700,2200 RYANN Administration Methylprednisolone Sodium Succinate 40 mg 06/04/17 18:00 06/05/17 09:45 Solu-Medrol - IVPUSH 40 mg Q8H-IV RYANN Administration Metoprolol Tartrate 25 mg 06/04/17 22:00 06/05/17 09:46 Lopressor - PO 25 mg BID RYANN Administration Nitrofurantoin Macrocrystals 50 mg 06/02/17 18:00 06/05/17 11:55 Macrodantin - PO 50 mg Q6HPO RYANN Administration Pantoprazole Sodium 20 mg 05/30/17 10:00 06/05/17 09:46 Protonix - PO 20 mg DAILY RYANN Administration Polyethylene Glycol 17 gm 06/02/17 10:00 06/05/17 09:46 Miralax (For Daily Use) - PO 17 gm DAILY RYANN Administration Senna 1 tab 06/01/17 22:00 06/04/17 21:47 Senna - PO 1 tab HS RYANN Administration Tramadol HCl 50 mg 06/05/17 12:51 Ultram - PO 06/05/17 12:52 ONCE ONE Valsartan 40 mg 05/30/17 10:00 06/05/17 09:46 Diovan - PO 40 mg DAILY RYANN Administration Assessment: 82 year-old female with a PMH significant for HTN, HLD, CAD s/p NC s /p stents x 2 (2013), systolic and diastolic heart failure, COPD on home O2 ( intubations x 3), IDDM, and arthritis. Admitted for acute hypercapnic and hypoxic respiratory failure, influenza B, COPD exacerbation, and systolic heart failure exacerbation. Plan: 1. Acute on chronic hypercapnic and hypoxic respiratory failure - Continue medrol 40mg q8 - Bipap - Completed Tamiflu - Duonebs ryann 2. Bilateral lower ext pain - Doppler us r/o DVT - Ultram x1 3. Kelbsiella UTI - Complete 7 days of macrobid 50mg q6 (day 3) 4. Acute on chronic systolic and diastolic heart failure - Lasix PO 40mg daily - Started lopressor 25mg BID 5. Hypertension - Controlled - Diovan, lopressor 6. Hyperlipidemia - Continue Lipitor 7. CAD s/p NC s/p stents - Maintain eliquis 5mg BID 8. Dysphagia - Hx of esophageal stricture, chronic - Dysphagia minced diet with nectar thick fluids - MBS when more stable 9. DM II - Elevated sugar d/t steroids - Increase levemir 26units BID - ISS, BGM ACHS 10. ppx - DVT ppx: on AC - Physical therapy Visit type - Emergency Visit Emergency Visit: Yes ED Registration Date: 05/28/17 Care time: The patient presented to the Emergency Department on the above date and was hospitalized for further evaluation of their emergent condition. - New Patient This patient is new to me today: No - Critical Care Critical Care patient: No
[2017-06-05] MEDS ORDERED: traMADol HCL 50 MG TABLET PO ONE (13:45)
--- NOTE | 2017-06-05 14:09 | PN ---
Progress Note (short form) - Note Progress Note: PULMONARY Still with shortness of breath, cough and wheezing but reports slowly improving. c/o leg pain. Last Vital Signs Temp Pulse Resp BP Pulse Ox 98.2 F 57 L 20 116/61 95 06/05/17 10:00 06/05/17 10:00 06/05/17 10:00 06/05/17 10:00 06/05/17 10:00 Intake & Output 06/02/17 06/03/17 06/04/17 06/05/17 23:59 23:59 23:59 23:59 Intake Total 100 1350 670 300 Balance 100 1350 670 300 Gen: less tachypneic with speaking Heart: RRR Lung: bilateral rhonchi, wheezes Abd: soft, nontender Ext: no edema CBC, BMP 06/04/17 05:35 06/04/17 05:35 Active Medications Acetaminophen (Tylenol -) 650 mg PO Q6H PRN PRN Reason: PAIN LEVEL 4 - 6 Last Admin: 06/01/17 18:07 Dose: 325 mg Albuterol Sulfate (Ventolin 0.083% Nebulizer Soln -) 1 amp NEB RQID [facility] Last Admin: 06/05/17 11:45 Dose: 1 amp Apixaban (Eliquis -) 5 mg PO BID [facility] Last Admin: 06/05/17 09:46 Dose: 5 mg Atorvastatin Calcium (Lipitor -) 40 mg PO HS [facility] Last Admin: 06/04/17 21:47 Dose: 40 mg Diltiazem HCl (Cardizem Injection -) 10 mg IVPUSH Q4H PRN PRN Reason: HR > 120 Furosemide (Lasix -) 40 mg PO DAILY [facility] Last Admin: 06/05/17 09:45 Dose: 40 mg Insulin Aspart (Novolog Vial Sliding Scale -) 1 vial SQ ACHS [facility] PRN Reason: Protocol Last Admin: 06/05/17 11:53 Dose: 10 units Insulin Detemir (Levemir Vial) 26 units SQ BID@0700,2200 [facility] Methylprednisolone Sodium Succinate (Solu-Medrol -) 40 mg IVPUSH Q8H-IV [facility] Last Admin: 06/05/17 09:45 Dose: 40 mg Metoprolol Tartrate (Lopressor -) 25 mg PO BID [facility] Last Admin: 06/05/17 09:46 Dose: 25 mg Nitrofurantoin Macrocrystals (Macrodantin -) 50 mg PO Q6HPO [facility] Last Admin: 06/05/17 11:55 Dose: 50 mg Pantoprazole Sodium (Protonix -) 40 mg PO DAILY [facility] Polyethylene Glycol (Miralax (For Daily Use) -) 17 gm PO DAILY [facility] Last Admin: 06/05/17 09:46 Dose: 17 gm Senna (Senna -) 1 tab PO HS [facility] Last Admin: 06/04/17 21:47 Dose: 1 tab Valsartan (Diovan -) 40 mg PO DAILY [facility] Last Admin: 06/05/17 09:46 Dose: 40 mg A/P Acute on Chronic Hypoxic and Hypercapneic Respiratory Failure Influenza B Acute COPD Exacerbation Acute on Chronic Systolic Heart Failure CAD +Troponins likely Demand Ischemia HTN DM - completed tamiflu - continue medrol at current dose - inhaled bronchodilators standing and PRN - BiPAP as needed - O2 to keep SpO2 >90% - LE dopplers - continue lasix - monitor urine output, creatinine - glucose control while on systemic steroids - ASA, plavix - PO as tolerated - DVT prophylaxis
[2017-06-05] MEDS: ATORVASTATIN CA 40 MG TABLET (FP) PO SCH (21:00)
[2017-06-05] MEDS: SENNOSIDES 8.6MG TABLET (FP) PO SCH (21:00)
[2017-06-06] MEDS: methylPREDNISolone NA SUCC 40 MG/1 ML VIAL IVPUSH SCH ×3 (03:01→22:07)
[2017-06-06] MEDS: NITROFURANTOIN MACROCRYSTAL 50 MG CAPSULE (FP) PO SCH ×4 (06:07→23:53)
[2017-06-06] MEDS: INSULIN DETEMIR 100 UNITS/ML MDV SQ SCH ×2 (06:07→22:08)
[2017-06-06] MEDS: INSULIN SLIDING SCALE (NOVOLOG) 1 VIAL SQ SCH ×4 (06:07→22:16)
[2017-06-06] MEDS: ALBUTEROL SO4 0.083% IH SOL 2.5 MG/3 ML VIAL.NEB. NEB SCH ×4 (06:20→20:20)
[2017-06-06 07:24] LABS: BASO % 0.1 % (0-2.0); HEMATOCRIT 38.9 % (32.4-45.2); HEMOGLOBIN 11.5 GM/dL (10.7-15.3); LYMPH % 5.1 % (8-40); MCHC 29.6 g/dl (32.0-36.0); MONO % 3.2 % (3.8-10.2); NEUT % 91.6 % (42.8-82.8); PLATELET COUNT 169 K/MM3 (134-434); RDW 18.5 % (11.6-15.6); WHITE BLOOD COUNT 5.8 K/mm3 (4.0-10.0)
[2017-06-06 07:51] LABS: BLOOD UREA NITROGEN 54 mg/dL (7-18); CALCIUM 8.8 mg/dL (8.5-10.1); CHLORIDE 92 mmol/L (98-107); CREATININE 0.9 mg/dL (0.55-1.02); GLUCOSE,RANDOM 179 mg/dL (74-106); POTASSIUM 4.9 mmol/L (3.5-5.1); SODIUM 142 mmol/L (136-145)
[2017-06-06 08:04] LABS: MCH 19.8 pg (25.7-33.7)
[2017-06-06] MEDS ORDERED: traMADol HCL 50 MG TABLET PO PRN (08:57)
--- NOTE | 2017-06-06 09:02 | PN ---
Physical Exam: SUBJECTIVE: Patient seen and examined. Her pain is mildly improved, breathing is better, becomes fatigued with position changes/exertion but this is her baseline. She uses oxygen at home. Per RN she sat in chair yesterday. She states her heels hurt so its hard for her to walk. OBJECTIVE: Vital Signs Period Temp Pulse Resp BP Sys/Gardner Pulse Ox Last 24 Hr 97.4 F-99.1 F 49-62 18-20 116-143/48-80 95-97 PE Neuro: alert, awake, cn 2-12intact Pulm: bibasilar rhonchi + fine inspiratory wheezing +NC CV: s1 s2 rrr bradycardia Abd: s nt nd + bs Ext: calf tenderness to palpation, LE ext warm, + DP pulses, no edema Skin: R ankle discoloration- improved Laboratory Results - last 24 hr 06/06/17 06/06/17 06/06/17 05:30 07:14 07:14 WBC 5.8 RBC 5.80 H Hgb 11.5 D Hct 38.9 MCV 67.0 L MCH 19.8 L MCHC 29.6 L RDW 18.5 H Plt Count 169 MPV 9.0 Neutrophils % 91.6 H Lymphocytes % 5.1 L Monocytes % 3.2 L Eosinophils % 0.0 D Basophils % 0.1 Sodium 142 Potassium 4.9 Chloride 92 L BUN 54 H Creatinine 0.9 POC Glucometer 195 Random Glucose 179 H Calcium 8.8 Active Medications Generic Name Dose Route Start Last Admin Trade Name Freq PRN Reason Stop Dose Admin Acetaminophen 650 mg 06/01/17 17:47 06/01/17 18:07 Tylenol - PO 325 mg Q6H PRN Administration PAIN LEVEL 4 - 6 Albuterol Sulfate 1 amp 05/29/17 20:00 06/06/17 06:20 Ventolin 0.083% Nebulizer Soln - NEB 1 amp RQID RYANN Administration Apixaban 5 mg 06/04/17 15:15 06/05/17 21:01 Eliquis - PO 5 mg BID RYANN Administration Atorvastatin Calcium 40 mg 05/29/17 22:00 06/05/17 21:00 Lipitor - PO 40 mg HS RYANN Administration Diltiazem HCl 10 mg 06/04/17 03:03 Cardizem Injection - IVPUSH Q4H PRN HR > 120 Furosemide 40 mg 06/05/17 10:00 06/05/17 09:45 Lasix - PO 40 mg DAILY RYANN Administration Insulin Aspart 1 vial 06/02/17 11:51 06/06/17 06:07 Novolog Vial Sliding Scale - SQ 6 units ACHS RYANN Administration Protocol Insulin Detemir 26 units 06/05/17 13:08 06/06/17 06:07 Levemir Vial SQ 26 units BID@0700,2200 RYANN Administration Methylprednisolone Sodium Succinate 40 mg 06/06/17 10:00 Solu-Medrol - IVPUSH BID RYANN Metoprolol Tartrate 25 mg 06/04/17 22:00 06/05/17 21:01 Lopressor - PO 25 mg BID RYANN Administration Nitrofurantoin Macrocrystals 50 mg 06/02/17 18:00 06/06/17 06:07 Macrodantin - PO 50 mg Q6HPO RYANN Administration Pantoprazole Sodium 40 mg 06/05/17 13:11 Protonix - PO DAILY RYANN Polyethylene Glycol 17 gm 06/02/17 10:00 06/05/17 09:46 Miralax (For Daily Use) - PO 17 gm DAILY RYANN Administration Senna 1 tab 06/01/17 22:00 06/05/17 21:00 Senna - PO 1 tab HS RYANN Administration Valsartan 40 mg 05/30/17 10:00 06/05/17 09:46 Diovan - PO 40 mg DAILY YRANN Administration Assessment: 82 year-old female with a PMH significant for HTN, HLD, CAD s/p ND s /p stents x 2 (2013), systolic and diastolic heart failure, COPD on home O2 ( intubations x 3), IDDM, and arthritis. Admitted for acute hypercapnic and hypoxic respiratory failure, influenza B, COPD exacerbation, and systolic heart failure exacerbation. Plan: 1. Acute on chronic hypercapnic and hypoxic respiratory failure - Taper medrol 40mg BID - Bipap prn - Completed Tamiflu - Duonebs [facility] 2. Bilateral lower ext pain - Negative for DVT - Possible due to diabetic neuropathy? - Consider lyrica vs gabapentin, pain improved with prn ultram - Physical therapy 3. Kelbsiella UTI - Complete 7 days of macrobid 50mg q6 (day 4) 4. Acute on chronic systolic and diastolic heart failure - Lasix PO 40mg daily - Continue Lopressor 25mg BID 5. Hypertension - Controlled - Diovan, lopressor 6. Hyperlipidemia - Continue Lipitor 7. CAD s/p ND s/p stents - Eliquis 5mg BID 8. Dysphagia - Hx of esophageal stricture, chronic - Dysphagia minced diet with nectar thick fluids - MBS when more stable 9. DM II - Elevated sugar d/t steroids, improved with increased levemir - Levemir 26units BID - ISS, BGM ACHS 10. Ppx - DVT ppx: on AC - Physical therapy Visit type - Emergency Visit Emergency Visit: Yes ED Registration Date: 05/28/17 Care time: The patient presented to the Emergency Department on the above date and was hospitalized for further evaluation of their emergent condition. - New Patient This patient is new to me today: No - Critical Care Critical Care patient: No
[2017-06-06 10:21] LABS: ANION GAP 6 (8-16); CO2 44 mmol/L (21-32)
[2017-06-06] MEDS: FUROSEMIDE 40 MG TABLET (FP) PO SCH (10:28)
[2017-06-06] MEDS: PANTOPRAZOLE 40 MG TABLET (FP) PO SCH (10:28)
[2017-06-06] MEDS: APIXABAN 5 MG TABLET PO SCH ×2 (10:28→22:07)
[2017-06-06] MEDS: METOPROLOL TARTRATE 25 MG TABLET (FP) PO SCH ×2 (10:28→22:07)
[2017-06-06] MEDS: VALSARTAN 40 MG TABLET (FP) PO SCH (10:28)
[2017-06-06] MEDS: POLYETHYLENE GLYCOL 3350 119 GM BTL PO SCH (10:31)
--- NOTE | 2017-06-06 11:15 | PN ---
Progress Note, Physician History of Present Illness: Remains in sinus rhythm. Dyspnea, cough and wheeze slowly improving. - Current Medication List Current Medications: Active Medications Acetaminophen (Tylenol -) 650 mg PO Q6H PRN PRN Reason: PAIN LEVEL 4 - 6 Last Admin: 06/01/17 18:07 Dose: 325 mg Albuterol Sulfate (Ventolin 0.083% Nebulizer Soln -) 1 amp NEB RQID [facility] Last Admin: 06/06/17 06:20 Dose: 1 amp Apixaban (Eliquis -) 5 mg PO BID [facility] Last Admin: 06/06/17 10:28 Dose: 5 mg Atorvastatin Calcium (Lipitor -) 40 mg PO HS [facility] Last Admin: 06/05/17 21:00 Dose: 40 mg Diltiazem HCl (Cardizem Injection -) 10 mg IVPUSH Q4H PRN PRN Reason: HR > 120 Furosemide (Lasix -) 40 mg PO DAILY [facility] Last Admin: 06/06/17 10:28 Dose: 40 mg Insulin Aspart (Novolog Vial Sliding Scale -) 1 vial SQ ACHS [facility] PRN Reason: Protocol Last Admin: 06/06/17 11:11 Dose: 12 units Insulin Detemir (Levemir Vial) 26 units SQ BID@0700,2200 [facility] Last Admin: 06/06/17 06:07 Dose: 26 units Methylprednisolone Sodium Succinate (Solu-Medrol -) 40 mg IVPUSH BID [facility] Last Admin: 06/06/17 10:28 Dose: 40 mg Metoprolol Tartrate (Lopressor -) 25 mg PO BID [facility] Last Admin: 06/06/17 10:28 Dose: 25 mg Nitrofurantoin Macrocrystals (Macrodantin -) 50 mg PO Q6HPO [facility] Last Admin: 06/06/17 11:13 Dose: 50 mg Pantoprazole Sodium (Protonix -) 40 mg PO DAILY [facility] Last Admin: 06/06/17 10:28 Dose: 40 mg Polyethylene Glycol (Miralax (For Daily Use) -) 17 gm PO DAILY [facility] Last Admin: 06/06/17 10:31 Dose: 17 gm Senna (Senna -) 1 tab PO HS [facility] Last Admin: 06/05/17 21:00 Dose: 1 tab Tramadol HCl (Ultram -) 50 mg PO Q6H PRN PRN Reason: PAIN LEVEL 4 - 6 Valsartan (Diovan -) 40 mg PO DAILY RYANN Last Admin: 06/06/17 10:28 Dose: 40 mg - Objective Vital Signs: Vital Signs Temperature 98.1 F 06/06/17 06:00 Pulse Rate 58 L 06/06/17 06:00 Respiratory Rate 20 06/06/17 06:00 Blood Pressure 136/59 06/06/17 06:00 O2 Sat by Pulse Oximetry (%) 97 06/05/17 23:09 Constitutional: Yes: No Distress, Calm Neck: Yes: Supple Cardiovascular: Yes: Regular Rate and Rhythm Respiratory: Yes: Regular, Diminished, On Nasal O2 Gastrointestinal: Yes: Normal Bowel Sounds, Soft, Abdomen, Obese Edema: No Labs: CBC, BMP 06/06/17 07:14 06/06/17 07:14 INR, PTT INR 1.02 (0.82-1.09) 05/28/17 14:45 - ....Imaging Ultrasound: Report Reviewed (No DVT bilaterally) EKG: Report Reviewed (Tele: SB 50s with occ PVC) Problem List - Problems (1) Paroxysmal atrial fibrillation with rapid ventricular response Code(s): I48.0 - PAROXYSMAL ATRIAL FIBRILLATION (2) Acute on chronic diastolic (congestive) heart failure Code(s): I50.33 - ACUTE ON CHRONIC DIASTOLIC (CONGESTIVE) HEART FAILURE (3) Acute on chronic respiratory failure with hypoxia and hypercapnia Code(s): J96.21 - ACUTE AND CHRONIC RESPIRATORY FAILURE WITH HYPOXIA; J96.22 - ACUTE AND CHRONIC RESPIRATORY FAILURE WITH HYPERCAPNIA (4) COPD exacerbation Code(s): J44.1 - CHRONIC OBSTRUCTIVE PULMONARY DISEASE W (ACUTE) EXACERBATION (5) ASHD (arteriosclerotic heart disease) Code(s): I25.10 - ATHSCL HEART DISEASE OF [place] CORONARY ARTERY W/O ANG PCTRS (6) Diabetes mellitus Code(s): E11.9 - TYPE 2 DIABETES MELLITUS WITHOUT COMPLICATIONS Qualifiers: Diabetes mellitus type: type 2 Diabetes mellitus complication status: without complication Diabetes mellitus business applications manager insulin use: without business applications manager use Qualified Code(s): E11.9 - Type 2 diabetes mellitus without complications (7) HTN (hypertension) Code(s): I10 - ESSENTIAL (PRIMARY) HYPERTENSION Qualifiers: Hypertension type: essential hypertension Qualified Code(s): I10 - Essential (primary) hypertension (8) History of coronary artery stent placement Code(s): Z95.5 - PRESENCE OF CORONARY ANGIOPLASTY IMPLANT AND GRAFT (9) Hyperlipidemia Code(s): E78.5 - HYPERLIPIDEMIA, UNSPECIFIED Qualifiers: Hyperlipidemia type: pure hypercholesterolemia Qualified Code(s): E78.00 - Pure hypercholesterolemia, unspecified; E78.0 - Pure hypercholesterolemia (10) 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 infarction Code(s): I25.2 - OLD MYOCARDIAL INFARCTION (11) TIA (transient ischemic attack) Code(s): G45.9 - TRANSIENT CEREBRAL ISCHEMIC ATTACK, UNSPECIFIED Qualifiers: Transient cerebral ischemia type: unspecified Qualified Code(s): G45.9 - Transient cerebral ischemic attack, unspecified (12) Demand ischemia Code(s): I24.8 - OTHER FORMS OF ACUTE ISCHEMIC HEART DISEASE (13) Influenza B Code(s): J10.1 - FLU DUE TO OTH IDENT INFLUENZA VIRUS W OTH RESP MANIFEST Assessment/Plan 10/2013 rotational atherectomy and YURIY PCI of mLAD and Diag, residual prox LCx 90-95% calcific, 30-50% LM disease Echocardiography 10/2013 mildly reduced LV function, apical severe akinesia, anterior mod hypokinesia, mild to moderate MR, mild to moderate right atrial enlargement, RVSP 50-60 (likely LAD infarct), repeat echocardiography dated 05/19 noted no significant change 1. Paroxysmal atrial fibrillation with RVR [id number] 2. Acute on Chronic Hypoxic and Hypercapneic Respiratory Failure improving 3. Influenza B post Tamiflu course 4. Acute COPD Exacerbation improving 5. Systolic/diastolic LV dysfunction with chronic class I-II NYHA classification LV failure, clinically compensated/euvolemic 6. CAD post ID, PCI (stent), demand ischemia 7. HTN 8. DM 9. Hypercholesterolemia 10. UTI PLAN: 1 Continue Lasix 40 po qd with monitor diuretic response, renal fxn and electrolytes 2. Continue Eliquis 5 bid given elevated stroke risk score and stable CAD history 3. Continue Lopressor 25 bid and assess clinical response 4. Continue Diovan 40 qd 5. Continue Lipitor 40 qhs 6. IV steroids with GI protection, bronchodilators, Bipap and O2 as needed per the pulmonary team 7. Antibiotics course as per the ID team 8. PSG as outpatient to evaluate for OSAS/OHS
--- NOTE | 2017-06-06 13:44 | PN ---
Progress Note, AGRICULTURAL EXTENSION EDUCATOR - Note Progress Note: Pt reports coughing at home on PO diet. On chopped/nectar diet. DENTAL CERAMIST HELPER feels she is eating more on modified diet. Pt with cough. Pt not clearly aspirating. Bedside evaluation is not conclusive. She seems to be coughing less but may be related to overall medically improving. GI evaluation/MBS with esophagus when stable. Trial sips of thin water when pulmonary status improves.
--- NOTE | 2017-06-06 14:03 | PN ---
Progress Note, Physician History of Present Illness: pulmonary alert,feeling better,less congested - Current Medication List Current Medications: Active Medications Acetaminophen (Tylenol -) 650 mg PO Q6H PRN PRN Reason: PAIN LEVEL 4 - 6 Last Admin: 06/01/17 18:07 Dose: 325 mg Albuterol Sulfate (Ventolin 0.083% Nebulizer Soln -) 1 amp NEB RQID [facility] Last Admin: 06/06/17 11:10 Dose: 1 amp Apixaban (Eliquis -) 5 mg PO BID [facility] Last Admin: 06/06/17 10:28 Dose: 5 mg Atorvastatin Calcium (Lipitor -) 40 mg PO HS [facility] Last Admin: 06/05/17 21:00 Dose: 40 mg Diltiazem HCl (Cardizem Injection -) 10 mg IVPUSH Q4H PRN PRN Reason: HR > 120 Furosemide (Lasix -) 20 mg PO DAILY [facility] Insulin Aspart (Novolog Vial Sliding Scale -) 1 vial SQ ACHS [facility] PRN Reason: Protocol Last Admin: 06/06/17 11:11 Dose: 12 units Insulin Detemir (Levemir Vial) 26 units SQ BID@0700,2200 [facility] Last Admin: 06/06/17 06:07 Dose: 26 units Methylprednisolone Sodium Succinate (Solu-Medrol -) 40 mg IVPUSH BID [facility] Last Admin: 06/06/17 10:28 Dose: 40 mg Metoprolol Tartrate (Lopressor -) 25 mg PO BID [facility] Last Admin: 06/06/17 10:28 Dose: 25 mg Nitrofurantoin Macrocrystals (Macrodantin -) 50 mg PO Q6HPO [facility] Last Admin: 06/06/17 11:13 Dose: 50 mg Pantoprazole Sodium (Protonix -) 40 mg PO DAILY [facility] Last Admin: 06/06/17 10:28 Dose: 40 mg Polyethylene Glycol (Miralax (For Daily Use) -) 17 gm PO DAILY [facility] Last Admin: 06/06/17 10:31 Dose: 17 gm Senna (Senna -) 1 tab PO HS [facility] Last Admin: 06/05/17 21:00 Dose: 1 tab Tramadol HCl (Ultram -) 50 mg PO Q6H PRN PRN Reason: PAIN LEVEL 4 - 6 Valsartan (Diovan -) 40 mg PO DAILY [facility] Last Admin: 06/06/17 10:28 Dose: 40 mg - Objective Vital Signs: Vital Signs Temperature 98.6 F 06/06/17 10:00 Pulse Rate 58 L 06/06/17 10:00 Respiratory Rate 20 06/06/17 10:00 Blood Pressure 129/58 06/06/17 10:00 O2 Sat by Pulse Oximetry (%) 97 06/06/17 10:00 Constitutional: Yes: Well Nourished, Calm Eyes: Yes: WNL HENT: Yes: WNL Neck: Yes: WNL Cardiovascular: Yes: Pulse Irregular, S1, S2 Respiratory: Yes: Rhonchi (scattered rhonchi) Gastrointestinal: Yes: Normal Bowel Sounds, Soft Extremities: Yes: WNL Edema: No Labs: CBC, BMP 06/06/17 07:14 06/06/17 07:14 INR, PTT INR 1.02 (0.82-1.09) 05/28/17 14:45 Problem List - Problems (1) Acute on chronic respiratory failure with hypoxia and hypercapnia Code(s): J96.21 - ACUTE AND CHRONIC RESPIRATORY FAILURE WITH HYPOXIA; J96.22 - ACUTE AND CHRONIC RESPIRATORY FAILURE WITH HYPERCAPNIA (2) Influenza B Code(s): J10.1 - FLU DUE TO OTH IDENT INFLUENZA VIRUS W OTH RESP MANIFEST (3) Shortness of breath Code(s): R06.02 - SHORTNESS OF BREATH (4) ASHD (arteriosclerotic heart disease) Code(s): I25.10 - ATHSCL HEART DISEASE OF [place] CORONARY ARTERY W/O ANG PCTRS (5) HTN (hypertension) Code(s): I10 - ESSENTIAL (PRIMARY) HYPERTENSION Qualifiers: Hypertension type: essential hypertension Qualified Code(s): I10 - Essential (primary) hypertension (6) History of coronary artery stent placement Code(s): Z95.5 - PRESENCE OF CORONARY ANGIOPLASTY IMPLANT AND GRAFT (7) Respiratory distress Code(s): R06.00 - DYSPNEA, UNSPECIFIED (8) COPD exacerbation Code(s): J44.1 - CHRONIC OBSTRUCTIVE PULMONARY DISEASE W (ACUTE) EXACERBATION (9) CHF exacerbation Code(s): I50.9 - HEART FAILURE, UNSPECIFIED Qualifiers: Congestive heart failure type: combined Qualified Code(s): I50.43 - Acute on chronic combined systolic (congestive) and diastolic (congestive) heart failure Assessment/Plan ASSESSMENT AND PLAN: Acute on Chronic Hypoxic and Hypercapneic Respiratory Failure improving Influenza B Acute COPD Exacerbation improving Acute on Chronic Systolic Heart Failure Afib CAD +Troponins likely Demand Ischemia HTN DM - medrol taper - inhaled bronchodilators standing and PRN - BiPAP as needed - O2 to keep SpO2 >90% - monitor ABGs - lasix - monitor urine output, creatinine - glucose control while on systemic steroids - PO as tolerated - DVT prophylaxis - rate control DR CAAL
[2017-06-06] MEDS ORDERED: INSULIN (NOVOLOG) ASPART 100 UNITS/ML 10ML VIAL ONE (22:05)
[2017-06-06] MEDS: SENNOSIDES 8.6MG TABLET (FP) PO SCH (22:07)
[2017-06-06] MEDS: ATORVASTATIN CA 40 MG TABLET (FP) PO SCH (22:07)
[2017-06-07] MEDS: NITROFURANTOIN MACROCRYSTAL 50 MG CAPSULE (FP) PO SCH ×3 (06:02→17:26)
[2017-06-07] MEDS: INSULIN DETEMIR 100 UNITS/ML MDV SQ SCH ×2 (06:03→21:45)
[2017-06-07] MEDS: INSULIN SLIDING SCALE (NOVOLOG) 1 VIAL SQ SCH ×4 (06:10→21:45)
[2017-06-07] MEDS ORDERED: INSULIN (NOVOLOG) ASPART 100 UNITS/ML 10ML VIAL ONE (07:00)
[2017-06-07] MEDS: ALBUTEROL SO4 0.083% IH SOL 2.5 MG/3 ML VIAL.NEB. NEB SCH ×4 (08:00→20:10)
[2017-06-07] MEDS ORDERED: PT OWN MED DRAWER 7, Y5N ONE (09:00)
[2017-06-07] MEDS: FUROSEMIDE 40 MG TABLET (FP) PO SCH (09:09)
[2017-06-07] MEDS: VALSARTAN 40 MG TABLET (FP) PO SCH (09:09)
[2017-06-07] MEDS: APIXABAN 5 MG TABLET PO SCH ×2 (09:10→21:44)
[2017-06-07] MEDS: POLYETHYLENE GLYCOL 3350 119 GM BTL PO SCH (09:10)
[2017-06-07] MEDS: METOPROLOL TARTRATE 25 MG TABLET (FP) PO SCH (09:10)
[2017-06-07] MEDS: methylPREDNISolone NA SUCC 40 MG/1 ML VIAL IVPUSH SCH ×2 (09:11→21:44)
[2017-06-07] MEDS: PANTOPRAZOLE 40 MG TABLET (FP) PO SCH (09:11)
--- NOTE | 2017-06-07 11:23 | PN ---
Progress Note, Physician History of Present Illness: pulmonary alert,feeling better,dyspnea improving - Current Medication List Current Medications: Active Medications Acetaminophen (Tylenol -) 650 mg PO Q6H PRN PRN Reason: PAIN LEVEL 4 - 6 Last Admin: 06/01/17 18:07 Dose: 325 mg Albuterol Sulfate (Ventolin 0.083% Nebulizer Soln -) 1 amp NEB RQID [facility] Last Admin: 06/07/17 08:00 Dose: 1 amp Apixaban (Eliquis -) 5 mg PO BID [facility] Last Admin: 06/07/17 09:10 Dose: 5 mg Atorvastatin Calcium (Lipitor -) 40 mg PO HS [facility] Last Admin: 06/06/17 22:07 Dose: 40 mg Diltiazem HCl (Cardizem Injection -) 10 mg IVPUSH Q4H PRN PRN Reason: HR > 120 Furosemide (Lasix -) 20 mg PO DAILY [facility] Last Admin: 06/07/17 09:09 Dose: 20 mg Insulin Aspart (Novolog Vial Sliding Scale -) 1 vial SQ [facility] PRN Reason: Protocol Last Admin: 06/07/17 06:10 Dose: 6 units Insulin Detemir (Levemir Vial) 26 units SQ BID@0700,2200 [facility] Last Admin: 06/07/17 06:03 Dose: 26 units Methylprednisolone Sodium Succinate (Solu-Medrol -) 40 mg IVPUSH BID [facility] Last Admin: 06/07/17 09:11 Dose: 40 mg Metoprolol Tartrate (Lopressor -) 25 mg PO BID [facility] Last Admin: 06/07/17 09:10 Dose: Not Given Nitrofurantoin Macrocrystals (Macrodantin -) 50 mg PO Q6HPO [facility] Last Admin: 06/07/17 06:02 Dose: 50 mg Pantoprazole Sodium (Protonix -) 40 mg PO DAILY [facility] Last Admin: 06/07/17 09:11 Dose: 40 mg Polyethylene Glycol (Miralax (For Daily Use) -) 17 gm PO DAILY [facility] Last Admin: 06/07/17 09:10 Dose: 17 gm Senna (Senna -) 1 tab PO HS [facility] Last Admin: 06/06/17 22:07 Dose: 1 tab Tramadol HCl (Ultram -) 50 mg PO Q6H PRN PRN Reason: PAIN LEVEL 4 - 6 Valsartan (Diovan -) 40 mg PO DAILY [facility] Last Admin: 06/07/17 09:09 Dose: 40 mg - Objective Vital Signs: Vital Signs Temperature 97.4 F L 06/07/17 07:02 Pulse Rate 54 L 06/07/17 07:02 Respiratory Rate 20 06/07/17 07:02 Blood Pressure 153/59 06/07/17 07:02 O2 Sat by Pulse Oximetry (%) 95 06/07/17 08:29 Constitutional: Yes: Well Nourished, Calm Eyes: Yes: WNL HENT: Yes: WNL Neck: Yes: WNL Cardiovascular: Yes: Pulse Irregular, S1, S2 Respiratory: Yes: Rhonchi (scattered rubi rhonchi) Gastrointestinal: Yes: Normal Bowel Sounds, Soft Extremities: Yes: WNL Edema: No Labs: CBC, BMP 06/06/17 07:14 06/06/17 07:14 INR, PTT INR 1.02 (0.82-1.09) 05/28/17 14:45 Problem List - Problems (1) Acute on chronic respiratory failure with hypoxia and hypercapnia Code(s): J96.21 - ACUTE AND CHRONIC RESPIRATORY FAILURE WITH HYPOXIA; J96.22 - ACUTE AND CHRONIC RESPIRATORY FAILURE WITH HYPERCAPNIA (2) Influenza B Code(s): J10.1 - FLU DUE TO OTH IDENT INFLUENZA VIRUS W OTH RESP MANIFEST (3) Shortness of breath Code(s): R06.02 - SHORTNESS OF BREATH (4) ASHD (arteriosclerotic heart disease) Code(s): I25.10 - ATHSCL HEART DISEASE OF [place] CORONARY ARTERY W/O ANG PCTRS (5) HTN (hypertension) Code(s): I10 - ESSENTIAL (PRIMARY) HYPERTENSION Qualifiers: Hypertension type: essential hypertension Qualified Code(s): I10 - Essential (primary) hypertension (6) History of coronary artery stent placement Code(s): Z95.5 - PRESENCE OF CORONARY ANGIOPLASTY IMPLANT AND GRAFT (7) Respiratory distress Code(s): R06.00 - DYSPNEA, UNSPECIFIED (8) COPD exacerbation Code(s): J44.1 - CHRONIC OBSTRUCTIVE PULMONARY DISEASE W (ACUTE) EXACERBATION (9) CHF exacerbation Code(s): I50.9 - HEART FAILURE, UNSPECIFIED Qualifiers: Congestive heart failure type: combined Qualified Code(s): I50.43 - Acute on chronic combined systolic (congestive) and diastolic (congestive) heart failure Assessment/Plan ASSESSMENT AND PLAN: Acute on Chronic Hypoxic and Hypercapneic Respiratory Failure improving Influenza B Acute COPD Exacerbation improving Acute on Chronic Systolic Heart Failure Afib CAD +Troponins likely Demand Ischemia HTN DM - prednisone - inhaled bronchodilators standing and PRN - BiPAP as needed - O2 to keep SpO2 >90% - monitor ABGs - lasix - monitor urine output, creatinine - glucose control while on systemic steroids - PO as tolerated - DVT prophylaxis - rate control - abg - chest x-ray DR CAAL
[2017-06-07 13:51] LABS: ARTERIAL BLD GAS O2 SATURATION 92.3 % (90-98.9); ARTERIAL BLOOD GAS BASE EXCESS 17.5 meq/l (-2-2); ARTERIAL BLOOD GAS PCO2 61.7 mmHg (35-45); ARTERIAL BLOOD GAS PO2 60.8 mmHg (68-100); ARTERIAL BLOOD GAS pH 7.47 (7.35-7.45)
[2017-06-07 13:54] LABS: ALLENS TEST POSITIVE
--- NOTE | 2017-06-07 14:50 | PN ---
Progress Note, Physician History of Present Illness: Remains in sinus rhythm. Dyspnea, cough and wheeze slowly improving. - Current Medication List Current Medications: Active Medications Acetaminophen (Tylenol -) 650 mg PO Q6H PRN PRN Reason: PAIN LEVEL 4 - 6 Last Admin: 06/01/17 18:07 Dose: 325 mg Albuterol Sulfate (Ventolin 0.083% Nebulizer Soln -) 1 amp NEB RQID [facility] Last Admin: 06/07/17 12:55 Dose: 1 amp Apixaban (Eliquis -) 5 mg PO BID [facility] Last Admin: 06/07/17 09:10 Dose: 5 mg Atorvastatin Calcium (Lipitor -) 40 mg PO HS [facility] Last Admin: 06/06/17 22:07 Dose: 40 mg Diltiazem HCl (Cardizem Injection -) 10 mg IVPUSH Q4H PRN PRN Reason: HR > 120 Furosemide (Lasix -) 20 mg PO DAILY [facility] Last Admin: 06/07/17 09:09 Dose: 20 mg Insulin Aspart (Novolog Vial Sliding Scale -) 1 vial SQ ACHS [facility] PRN Reason: Protocol Last Admin: 06/07/17 12:51 Dose: 6 units Insulin Detemir (Levemir Vial) 26 units SQ BID@0700,2200 [facility] Last Admin: 06/07/17 06:03 Dose: 26 units Methylprednisolone Sodium Succinate (Solu-Medrol -) 40 mg IVPUSH BID [facility] Stop: 06/07/17 23:00 Last Admin: 06/07/17 09:11 Dose: 40 mg Metoprolol Tartrate (Lopressor -) 25 mg PO BID [facility] Last Admin: 06/07/17 09:10 Dose: Not Given Nitrofurantoin Macrocrystals (Macrodantin -) 50 mg PO Q6HPO [facility] Last Admin: 06/07/17 13:21 Dose: 50 mg Pantoprazole Sodium (Protonix -) 40 mg PO DAILY [facility] Last Admin: 06/07/17 09:11 Dose: 40 mg Polyethylene Glycol (Miralax (For Daily Use) -) 17 gm PO DAILY [facility] Last Admin: 06/07/17 09:10 Dose: 17 gm Prednisone (Deltasone -) 60 mg PO DAILY [facility] Senna (Senna -) 1 tab PO HS [facility] Last Admin: 06/06/17 22:07 Dose: 1 tab Tramadol HCl (Ultram -) 50 mg PO Q6H PRN PRN Reason: PAIN LEVEL 4 - 6 Valsartan (Diovan -) 40 mg PO DAILY [facility] Last Admin: 06/07/17 09:09 Dose: 40 mg - Objective Vital Signs: Vital Signs Temperature 98.1 F 06/07/17 14:42 Pulse Rate 58 L 06/07/17 14:42 Respiratory Rate 20 06/07/17 14:42 Blood Pressure 147/88 06/07/17 14:42 O2 Sat by Pulse Oximetry (%) 95 06/07/17 08:29 Constitutional: Yes: No Distress, Calm Neck: Yes: Supple Cardiovascular: Yes: Regular Rate and Rhythm Respiratory: Yes: Regular, Diminished, On Nasal O2 Gastrointestinal: Yes: Normal Bowel Sounds, Soft Edema: No Labs: CBC, BMP 06/06/17 07:14 06/06/17 07:14 INR, PTT INR 1.02 (0.82-1.09) 05/28/17 14:45 - ....Imaging Chest X-ray: Report Reviewed (Right base ATX) EKG: Report Reviewed (Tele: SR occ PVC, no recurrence of PAF) Problem List - Problems (1) Paroxysmal atrial fibrillation with rapid ventricular response Code(s): I48.0 - PAROXYSMAL ATRIAL FIBRILLATION (2) Acute on chronic diastolic (congestive) heart failure Code(s): I50.33 - ACUTE ON CHRONIC DIASTOLIC (CONGESTIVE) HEART FAILURE (3) Acute on chronic respiratory failure with hypoxia and hypercapnia Code(s): J96.21 - ACUTE AND CHRONIC RESPIRATORY FAILURE WITH HYPOXIA; J96.22 - ACUTE AND CHRONIC RESPIRATORY FAILURE WITH HYPERCAPNIA (4) COPD exacerbation Code(s): J44.1 - CHRONIC OBSTRUCTIVE PULMONARY DISEASE W (ACUTE) EXACERBATION (5) ASHD (arteriosclerotic heart disease) Code(s): I25.10 - ATHSCL HEART DISEASE OF [place] CORONARY ARTERY W/O ANG PCTRS (6) Diabetes mellitus Code(s): E11.9 - TYPE 2 DIABETES MELLITUS WITHOUT COMPLICATIONS Qualifiers: Diabetes mellitus type: type 2 Diabetes mellitus complication status: without complication Diabetes mellitus shelter insulin use: without shelter use Qualified Code(s): E11.9 - Type 2 diabetes mellitus without complications (7) HTN (hypertension) Code(s): I10 - ESSENTIAL (PRIMARY) HYPERTENSION Qualifiers: Hypertension type: essential hypertension Qualified Code(s): I10 - Essential (primary) hypertension (8) History of coronary artery stent placement Code(s): Z95.5 - PRESENCE OF CORONARY ANGIOPLASTY IMPLANT AND GRAFT (9) Hyperlipidemia Code(s): E78.5 - HYPERLIPIDEMIA, UNSPECIFIED Qualifiers: Hyperlipidemia type: pure hypercholesterolemia Qualified Code(s): E78.00 - Pure hypercholesterolemia, unspecified; E78.0 - Pure hypercholesterolemia (10) 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 infarction Code(s): I25.2 - OLD MYOCARDIAL INFARCTION (11) TIA (transient ischemic attack) Code(s): G45.9 - TRANSIENT CEREBRAL ISCHEMIC ATTACK, UNSPECIFIED Qualifiers: Transient cerebral ischemia type: unspecified Qualified Code(s): G45.9 - Transient cerebral ischemic attack, unspecified (12) Demand ischemia Code(s): I24.8 - OTHER FORMS OF ACUTE ISCHEMIC HEART DISEASE (13) Influenza B Code(s): J10.1 - FLU DUE TO OTH IDENT INFLUENZA VIRUS W OTH RESP MANIFEST Assessment/Plan 10/2013 rotational atherectomy and YURIY PCI of mLAD and Diag, residual prox LCx 90-95% calcific, 30-50% LM disease Echocardiography 10/2013 mildly reduced LV function, apical severe akinesia, anterior mod hypokinesia, mild to moderate MR, mild to moderate right atrial enlargement, RVSP 50-60 (likely LAD infarct), repeat echocardiography dated 05/19 noted no significant change 1. Paroxysmal atrial fibrillation with RVR [id number] 2. Acute on Chronic Hypoxic and Hypercapneic Respiratory Failure improving 3. Influenza B post Tamiflu course 4. Acute COPD Exacerbation improving 5. Systolic/diastolic LV dysfunction with chronic class I-II NYHA classification LV failure, clinically compensated/euvolemic 6. CAD post AZ, PCI (stent), demand ischemia 7. HTN 8. DM 9. Hypercholesterolemia 10. UTI PLAN: 1 Continue Lasix 20 po qd with monitor diuretic response, renal fxn and electrolytes 2. Continue Eliquis 5 bid given elevated stroke risk score and stable CAD history 3. Tolerating Lopressor 25 bid 4. Continue Diovan 40 qd 5. Continue Lipitor 40 qhs 6. Oral steroid taper with GI protection, bronchodilators, Bipap and O2 as needed per the pulmonary team 7. Antibiotics course as per the ID team 8. PSG as outpatient to evaluate for OSAS/OHS
[2017-06-07] MEDS: metoPROLOL SUCCINATE 25 MG TAB.SR.24H (FP) PO SCH (15:40)
--- NOTE | 2017-06-07 16:45 | PN ---
Physical Exam: SUBJECTIVE: Patient seen and examined at bedside. Patient expressed displeasure with dysphagia diet. [place] better when author explained need for dysphagia diet. OBJECTIVE: Vital Signs Period Temp Pulse Resp BP Sys/Gardner Pulse Ox Last 24 Hr 97.4 F-99.6 F 54-92 20-22 116-153/43-88 93-97 GENERAL: The patient is awake, alert, and fully oriented, in no acute distress. LUNGS: Scattered rhonchi. HEART: Bradycardiac with regular rhythm, S1, S2. No m/r/g. ABDOMEN: SNTND. +BS. EXTREMITIES: 2+ pulses, warm, well-perfused, trace pedal edema. NEUROLOGICAL: Cranial nerves II through XII grossly intact. Normal speech, gait not observed. SKIN: Warm, dry, normal turgor, no rashes or lesions noted Laboratory Results - last 24 hr 06/06/17 06/07/17 06/07/17 22:00 05:41 11:23 Puncture Site Right brachial ABG pH 7.47 H ABG pCO2 at Pt Temp 61.7 H* D ABG pO2 at Pt Temp 60.8 L D ABG HCO3 44.2 H* ABG O2 Sat (Measured) 92.3 ABG O2 Content 14.0 L ABG Base Excess 17.5 H* Krishan Test Positive Oxygen Flow Rate Yes POC Glucometer 396 198 06/07/17 11:24 Puncture Site ABG pH ABG pCO2 at Pt Temp ABG pO2 at Pt Temp ABG HCO3 ABG O2 Sat (Measured) ABG O2 Content ABG Base Excess Krishan Test Oxygen Flow Rate POC Glucometer 180 Active Medications Generic Name Dose Route Start Last Admin Trade Name Freq PRN Reason Stop Dose Admin Acetaminophen 650 mg 06/01/17 17:47 06/01/17 18:07 Tylenol - PO 325 mg Q6H PRN Administration PAIN LEVEL 4 - 6 Albuterol Sulfate 1 amp 05/29/17 20:00 06/07/17 16:20 Ventolin 0.083% Nebulizer Soln - NEB 1 amp RQID [facility] Administration Apixaban 5 mg 06/04/17 15:15 06/07/17 09:10 Eliquis - PO 5 mg BID [facility] Administration Atorvastatin Calcium 40 mg 05/29/17 22:00 06/06/17 22:07 Lipitor - PO 40 mg HS [facility] Administration Diltiazem HCl 10 mg 06/04/17 03:03 Cardizem Injection - IVPUSH Q4H PRN HR > 120 Furosemide 20 mg 06/06/17 11:24 06/07/17 09:09 Lasix - PO 20 mg DAILY [facility] Administration Insulin Aspart 1 vial 06/02/17 11:51 06/07/17 12:51 Novolog Vial Sliding Scale - SQ 6 units ACHS [facility] Administration Protocol Insulin Detemir 26 units 06/05/17 13:08 06/07/17 06:03 Levemir Vial SQ 26 units BID@0700,2200 [facility] Administration Methylprednisolone Sodium Succinate 40 mg 06/06/17 10:00 06/07/17 09:11 Solu-Medrol - IVPUSH 06/07/17 23:00 40 mg BID [facility] Administration Metoprolol Succinate 25 mg 06/07/17 15:30 06/07/17 15:40 Toprol Xl - PO 25 mg DAILY [facility] Administration Nitrofurantoin Macrocrystals 50 mg 06/02/17 18:00 06/07/17 13:21 Macrodantin - PO 50 mg Q6HPO [facility] Administration Pantoprazole Sodium 40 mg 06/05/17 13:11 06/07/17 09:11 Protonix - PO 40 mg DAILY [facility] Administration Polyethylene Glycol 17 gm 06/02/17 10:00 06/07/17 09:10 Miralax (For Daily Use) - PO 17 gm DAILY [facility] Administration Prednisone 60 mg 06/08/17 10:00 Deltasone - PO DAILY [facility] Senna 1 tab 06/01/17 22:00 06/06/17 22:07 Senna - PO 1 tab HS [facility] Administration Tramadol HCl 50 mg 06/06/17 08:57 Ultram - PO Q6H PRN PAIN LEVEL 4 - 6 Valsartan 40 mg 05/30/17 10:00 06/07/17 09:09 Diovan - PO 40 mg DAILY [facility] Administration ASSESSMENT/PLAN: A: 82 year-old female with a PMH significant for HTN, HLD, CAD s/p CT s/p stents x 2 (2013), systolic and diastolic heart failure, COPD on home O2 (intubations x 3 ), IDDM, and arthritis. Admitted for acute hypercapnic and hypoxic respiratory failure, influenza B, COPD exacerbation, and systolic heart failure exacerbation. P: Acute on chronic hypercapnic and hypoxic respiratory failure - Taper methylpred 40mg BID - Bipap prn - Completed Tamiflu - Duonebs - Pulm following Bilateral lower ext pain - Doppler (-)DVT - ultram prn - PT Kelbsiella UTI - Complete 7 days of macrobid 50mg q6 (day 5) Acute on chronic systolic and diastolic heart failure - Lasix PO 40mg daily - Lopressor 25mg daily Hypertension - Controlled - Diovan - lopressor Hyperlipidemia - Lipitor CAD s/p CT s/p stents - Eliquis 5mg BID Dysphagia - Hx of esophageal stricture, chronic - Dysphagia minced diet with nectar thick fluids - MBS when more stable DM II - Levemir 26units BID - ISS - FS qACHS F/E/N - dysphagia diet - replete prn PPX - Eliquis - PT Dispo- requires continued inpatient treatment Visit type - Emergency Visit Emergency Visit: Yes ED Registration Date: 05/28/17 Care time: The patient presented to the Emergency Department on the above date and was hospitalized for further evaluation of their emergent condition. - New Patient This patient is new to me today: Yes Date on this admission: 06/08/17 - Critical Care Critical Care patient: No
[2017-06-07] MEDS: ATORVASTATIN CA 40 MG TABLET (FP) PO SCH (21:44)
[2017-06-07] MEDS: SENNOSIDES 8.6MG TABLET (FP) PO SCH (21:44)
[2017-06-08] MEDS: NITROFURANTOIN MACROCRYSTAL 50 MG CAPSULE (FP) PO SCH ×5 (00:09→23:08)
[2017-06-08] MEDS: INSULIN SLIDING SCALE (NOVOLOG) 1 VIAL SQ SCH ×4 (06:23→22:30)
[2017-06-08] MEDS: INSULIN DETEMIR 100 UNITS/ML MDV SQ SCH ×2 (06:23→22:29)
[2017-06-08] MEDS ORDERED: INSULIN (NOVOLOG) ASPART 100 UNITS/ML 10ML VIAL ONE ×2 (06:31→22:14)
[2017-06-08] MEDS: ALBUTEROL SO4 0.083% IH SOL 2.5 MG/3 ML VIAL.NEB. NEB SCH ×2 (07:50→11:15)
[2017-06-08 08:17] LABS: ALBUMIN 2.6 g/dl (3.4-5.0); ANION GAP 2 (8-16); BLOOD UREA NITROGEN 40 mg/dL (7-18); CALCIUM 8.8 mg/dL (8.5-10.1); CHLORIDE 94 mmol/L (98-107); CO2 43 mmol/L (21-32); CREATININE 0.7 mg/dL (0.55-1.02); GLUCOSE,RANDOM 160 mg/dL (74-106); POTASSIUM 4.4 mmol/L (3.5-5.1); SGOT/AST 10 U/L (15-37); SGPT/ALT 19 U/L (12-78); SODIUM 139 mmol/L (136-145)
[2017-06-08 08:19] LABS: ALK PHOS 47 U/L (45-117); BILIRUBIN,TOTAL 2.3 mg/dL (0.2-1.0); TOT PROT 5.8 g/dl (6.4-8.2)
[2017-06-08 08:21] LABS: EOS % 0.1 % (0-4.5); HEMATOCRIT 35.8 % (32.4-45.2); HEMOGLOBIN 10.8 GM/dL (10.7-15.3); LYMPH % 5.8 % (8-40); MCHC 30.2 g/dl (32.0-36.0); MONO % 0.7 % (3.8-10.2); NEUT % 93.4 % (42.8-82.8); PLATELET COUNT 141 K/MM3 (134-434); RBC 5.51 M/mm3 (3.60-5.2); RDW 17.7 % (11.6-15.6); WHITE BLOOD COUNT 5.1 K/mm3 (4.0-10.0)
[2017-06-08 08:28] LABS: MCH 19.6 pg (25.7-33.7)
[2017-06-08] MEDS ORDERED: PT OWN MED DRAWER 7, Y5N ONE (09:22)
[2017-06-08] MEDS: PANTOPRAZOLE 40 MG TABLET (FP) PO SCH (09:24)
[2017-06-08] MEDS: VALSARTAN 40 MG TABLET (FP) PO SCH (09:24)
[2017-06-08] MEDS: FUROSEMIDE 40 MG TABLET (FP) PO SCH (09:24)
[2017-06-08] MEDS: APIXABAN 5 MG TABLET PO SCH ×2 (09:24→21:04)
[2017-06-08] MEDS: predniSONE 20 MG TABLET (UD) PO SCH (09:24)
[2017-06-08] MEDS: metoPROLOL SUCCINATE 25 MG TAB.SR.24H (FP) PO SCH (09:25)
[2017-06-08] MEDS: POLYETHYLENE GLYCOL 3350 119 GM BTL PO SCH (09:25)
--- NOTE | 2017-06-08 11:48 | PN ---
Progress Note, Physician History of Present Illness: pulmonary alert,comfortable in nad,-c/o sob - Current Medication List Current Medications: Active Medications Acetaminophen (Tylenol -) 650 mg PO Q6H PRN PRN Reason: PAIN LEVEL 4 - 6 Last Admin: 06/01/17 18:07 Dose: 325 mg Albuterol Sulfate (Ventolin 0.083% Nebulizer Soln -) 1 amp NEB RQID [facility] Last Admin: 06/08/17 07:50 Dose: 1 amp Apixaban (Eliquis -) 5 mg PO BID [facility] Last Admin: 06/08/17 09:24 Dose: 5 mg Atorvastatin Calcium (Lipitor -) 40 mg PO HS [facility] Last Admin: 06/07/17 21:44 Dose: 40 mg Diltiazem HCl (Cardizem Injection -) 10 mg IVPUSH Q4H PRN PRN Reason: HR > 120 Furosemide (Lasix -) 20 mg PO DAILY [facility] Last Admin: 06/08/17 09:24 Dose: 20 mg Insulin Aspart (Novolog Vial Sliding Scale -) 1 vial SQ [facility] PRN Reason: Protocol Last Admin: 06/08/17 06:23 Dose: 6 units Insulin Detemir (Levemir Vial) 26 units SQ BID@0700,2200 [facility] Last Admin: 06/08/17 06:23 Dose: 26 units Metoprolol Succinate (Toprol Xl -) 25 mg PO DAILY [facility] Last Admin: 06/08/17 09:25 Dose: 25 mg Nitrofurantoin Macrocrystals (Macrodantin -) 50 mg PO Q6HPO [facility] Last Admin: 06/08/17 06:23 Dose: 50 mg Pantoprazole Sodium (Protonix -) 40 mg PO DAILY [facility] Last Admin: 06/08/17 09:24 Dose: 40 mg Polyethylene Glycol (Miralax (For Daily Use) -) 17 gm PO DAILY [facility] Last Admin: 06/08/17 09:25 Dose: 17 gm Prednisone (Deltasone -) 60 mg PO DAILY [facility] Last Admin: 06/08/17 09:24 Dose: 60 mg Senna (Senna -) 1 tab PO HS [facility] Last Admin: 06/07/17 21:44 Dose: 1 tab Tramadol HCl (Ultram -) 50 mg PO Q6H PRN PRN Reason: PAIN LEVEL 4 - 6 Valsartan (Diovan -) 40 mg PO DAILY [facility] Last Admin: 06/08/17 09:24 Dose: 40 mg - Objective Vital Signs: Vital Signs Temperature 97.6 F 06/08/17 05:37 Pulse Rate 59 L 06/08/17 05:37 Respiratory Rate 16 06/07/17 21:00 Blood Pressure 134/46 06/08/17 05:37 O2 Sat by Pulse Oximetry (%) 99 06/08/17 07:50 Constitutional: Yes: Well Nourished, Calm Eyes: Yes: WNL HENT: Yes: Nasal Congestion Neck: Yes: WNL Cardiovascular: Yes: Pulse Irregular, S1, S2 Respiratory: Yes: Rales (rubi crackles 1/3 up) Gastrointestinal: Yes: Normal Bowel Sounds, Soft Extremities: Yes: WNL Edema: Yes Labs: CBC, BMP 06/08/17 06:30 06/08/17 06:30 INR, PTT INR 1.02 (0.82-1.09) 05/28/17 14:45 Laboratory Tests 05/30/17 06/07/17 06:45 11:23 ABG pH 7.31 L 7.47 H ABG pCO2 at Pt Temp 85.7 H* 61.7 H* D ABG pO2 at Pt Temp 72.0 60.8 L D ABG HCO3 41.4 H* 44.2 H* ABG O2 Sat (Measured) 93.3 92.3 O2 Delivery Device Bipap Oxygen Flow Rate 40% Vent Rate 16 Pressure Support Vent 12/7 Problem List - Problems (1) Acute on chronic respiratory failure with hypoxia and hypercapnia Code(s): J96.21 - ACUTE AND CHRONIC RESPIRATORY FAILURE WITH HYPOXIA; J96.22 - ACUTE AND CHRONIC RESPIRATORY FAILURE WITH HYPERCAPNIA (2) Influenza B Code(s): J10.1 - FLU DUE TO OTH IDENT INFLUENZA VIRUS W OTH RESP MANIFEST (3) Shortness of breath Code(s): R06.02 - SHORTNESS OF BREATH (4) ASHD (arteriosclerotic heart disease) Code(s): I25.10 - ATHSCL HEART DISEASE OF [place] CORONARY ARTERY W/O ANG PCTRS (5) HTN (hypertension) Code(s): I10 - ESSENTIAL (PRIMARY) HYPERTENSION Qualifiers: Hypertension type: essential hypertension Qualified Code(s): I10 - Essential (primary) hypertension (6) History of coronary artery stent placement Code(s): Z95.5 - PRESENCE OF CORONARY ANGIOPLASTY IMPLANT AND GRAFT (7) Respiratory distress Code(s): R06.00 - DYSPNEA, UNSPECIFIED (8) COPD exacerbation Code(s): J44.1 - CHRONIC OBSTRUCTIVE PULMONARY DISEASE W (ACUTE) EXACERBATION (9) CHF exacerbation Code(s): I50.9 - HEART FAILURE, UNSPECIFIED Qualifiers: Congestive heart failure type: combined Qualified Code(s): I50.43 - Acute on chronic combined systolic (congestive) and diastolic (congestive) heart failure Assessment/Plan ASSESSMENT AND PLAN: Acute on Chronic Hypoxic and Hypercapneic Respiratory Failure improving Influenza B Acute COPD Exacerbation improving Acute on Chronic Systolic Heart Failure Afib CAD +Troponins likely [place]and Ischemia HTN DM - prednisone - inhaled bronchodilators standing and PRN - BiPAP as needed - O2 to keep SpO2 >90% - monitor ABGs - lasix - monitor urine output, creatinine - glucose control while on systemic steroids - PO as tolerated - DVT prophylaxis - rate control as per cardiplogy DR CAAL
--- NOTE | 2017-06-08 14:58 | PN ---
Progress Note, Physician History of Present Illness: Remains in sinus rhythm. Dyspnea, cough and wheeze slowly improving. - Current Medication List Current Medications: Active Medications Acetaminophen (Tylenol -) 650 mg PO Q6H PRN PRN Reason: PAIN LEVEL 4 - 6 Last Admin: 06/01/17 18:07 Dose: 325 mg Albuterol Sulfate (Ventolin 0.083% Nebulizer Soln -) 1 amp NEB RQID [facility] Last Admin: 06/08/17 11:15 Dose: 1 amp Apixaban (Eliquis -) 5 mg PO BID [facility] Last Admin: 06/08/17 09:24 Dose: 5 mg Atorvastatin Calcium (Lipitor -) 40 mg PO HS [facility] Last Admin: 06/07/17 21:44 Dose: 40 mg Diltiazem HCl (Cardizem Injection -) 10 mg IVPUSH Q4H PRN PRN Reason: HR > 120 Furosemide (Lasix -) 20 mg PO DAILY [facility] Last Admin: 06/08/17 09:24 Dose: 20 mg Insulin Aspart (Novolog Vial Sliding Scale -) [address] [facility] PRN Reason: Protocol Last Admin: 06/08/17 12:08 Dose: 6 units Insulin Detemir (Levemir Vial) 26 units SQ BID@0700,2200 [facility] Last Admin: 06/08/17 06:23 Dose: 26 units Metoprolol Succinate (Toprol Xl -) 25 mg PO DAILY [facility] Last Admin: 06/08/17 09:25 Dose: 25 mg Nitrofurantoin Macrocrystals (Macrodantin -) 50 mg PO Q6HPO [facility] Last Admin: 06/08/17 12:31 Dose: 50 mg Pantoprazole Sodium (Protonix -) 40 mg PO DAILY [facility] Last Admin: 06/08/17 09:24 Dose: 40 mg Polyethylene Glycol (Miralax (For Daily Use) -) 17 gm PO DAILY [facility] Last Admin: 06/08/17 09:25 Dose: 17 gm Prednisone (Deltasone -) 60 mg PO DAILY [facility] Last Admin: 06/08/17 09:24 Dose: 60 mg Senna (Senna -) 1 tab PO HS [facility] Last Admin: 06/07/17 21:44 Dose: 1 tab Tramadol HCl (Ultram -) 50 mg PO Q6H PRN PRN Reason: PAIN LEVEL 4 - 6 Valsartan (Diovan -) 40 mg PO DAILY [facility] Last Admin: 06/08/17 09:24 Dose: 40 mg - Objective Vital Signs: Vital Signs Temperature 98.3 F 06/08/17 14:16 Pulse Rate 57 L 06/08/17 14:31 Respiratory Rate 18 06/08/17 14:31 Blood Pressure 135/59 06/08/17 14:31 O2 Sat by Pulse Oximetry (%) 97 06/08/17 11:58 Constitutional: Yes: No Distress, Calm Neck: Yes: Supple Cardiovascular: Yes: Regular Rate and Rhythm Respiratory: Yes: Regular, Diminished, On Nasal O2 Gastrointestinal: Yes: Normal Bowel Sounds, Soft, Abdomen, Obese Edema: No Labs: CBC, BMP 06/08/17 06:30 06/08/17 06:30 INR, PTT INR 1.02 (0.82-1.09) 05/28/17 14:45 - ....Imaging Chest X-ray: Report Reviewed (Right base ATX) Problem List - Problems (1) Paroxysmal atrial fibrillation with rapid ventricular response Code(s): I48.0 - PAROXYSMAL ATRIAL FIBRILLATION (2) Acute on chronic diastolic (congestive) heart failure Code(s): I50.33 - ACUTE ON CHRONIC DIASTOLIC (CONGESTIVE) HEART FAILURE (3) Acute on chronic respiratory failure with hypoxia and hypercapnia Code(s): J96.21 - ACUTE AND CHRONIC RESPIRATORY FAILURE WITH HYPOXIA; J96.22 - ACUTE AND CHRONIC RESPIRATORY FAILURE WITH HYPERCAPNIA (4) COPD exacerbation Code(s): J44.1 - CHRONIC OBSTRUCTIVE PULMONARY DISEASE W (ACUTE) EXACERBATION (5) ASHD (arteriosclerotic heart disease) Code(s): I25.10 - ATHSCL HEART DISEASE OF [place] CORONARY ARTERY W/O ANG PCTRS (6) Diabetes mellitus Code(s): E11.9 - TYPE 2 DIABETES MELLITUS WITHOUT COMPLICATIONS Qualifiers: Diabetes mellitus type: type 2 Diabetes mellitus complication status: without complication Diabetes mellitus nursing home insulin use: without nursing home use Qualified Code(s): E11.9 - Type 2 diabetes mellitus without complications (7) HTN (hypertension) Code(s): I10 - ESSENTIAL (PRIMARY) HYPERTENSION Qualifiers: Hypertension type: essential hypertension Qualified Code(s): I10 - Essential (primary) hypertension (8) History of coronary artery stent placement Code(s): Z95.5 - PRESENCE OF CORONARY ANGIOPLASTY IMPLANT AND GRAFT (9) Hyperlipidemia Code(s): E78.5 - HYPERLIPIDEMIA, UNSPECIFIED Qualifiers: Hyperlipidemia type: pure hypercholesterolemia Qualified Code(s): E78.00 - Pure hypercholesterolemia, unspecified; E78.0 - Pure hypercholesterolemia (10) 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 infarction Code(s): I25.2 - OLD MYOCARDIAL INFARCTION (11) TIA (transient ischemic attack) Code(s): G45.9 - TRANSIENT CEREBRAL ISCHEMIC ATTACK, UNSPECIFIED Qualifiers: Transient cerebral ischemia type: unspecified Qualified Code(s): G45.9 - Transient cerebral ischemic attack, unspecified (12) Demand ischemia Code(s): I24.8 - OTHER FORMS OF ACUTE ISCHEMIC HEART DISEASE (13) Influenza B Code(s): J10.1 - FLU DUE TO OTH IDENT INFLUENZA VIRUS W OTH RESP MANIFEST Assessment/Plan 10/2013 rotational atherectomy and YURIY PCI of mLAD and Diag, residual prox LCx 90-95% calcific, 30-50% LM disease Echocardiography 10/2013 mildly reduced LV function, apical severe akinesia, anterior mod hypokinesia, mild to moderate MR, mild to moderate right atrial enlargement, RVSP 50-60 (likely LAD infarct), repeat echocardiography dated 05/19 noted no significant change 1. Paroxysmal atrial fibrillation with RVR [id number] 2. Acute on Chronic Hypoxic and Hypercapneic Respiratory Failure improving 3. Influenza B post Tamiflu course 4. Acute COPD Exacerbation improving 5. Systolic/diastolic LV dysfunction with chronic class I-II NYHA classification LV failure, clinically compensated/euvolemic 6. CAD post MA, PCI (stent), demand ischemia 7. HTN 8. DM 9. Hypercholesterolemia 10. UTI PLAN: 1 Continue Lasix 20 po qd with monitor diuretic response, renal fxn and electrolytes 2. Continue Eliquis 5 bid given elevated stroke risk score and stable CAD history 3. Changed Lopressor 25 bid to Toprol XL 25 qd 4. Continue Diovan 40 qd 5. Continue Lipitor 40 qhs 6. Oral steroid taper with GI protection, bronchodilators, Bipap and O2 as needed per the pulmonary team 7. Antibiotics course as per the ID team 8. PSG as outpatient to evaluate for OSAS/OHS
[2017-06-08] MEDS ORDERED: ALBUTEROL SO4 0.083% IH SOL 2.5 MG/3 ML VIAL.NEB. NEB ONE (15:09)
--- NOTE | 2017-06-08 19:03 | PN ---
Physical Exam: SUBJECTIVE: Patient seen and examined OBJECTIVE: Vital Signs Period Temp Pulse Resp BP Sys/Gardner Pulse Ox Last 24 Hr 97.5 F-98.7 F 54-62 16-19 116-135/46-59 94-99 GENERAL: The patient is awake, alert, and fully oriented, in no acute distress. LUNGS: Scattered rhonchi. HEART: Bradycardiac with regular rhythm, S1, S2. No m/r/g. ABDOMEN: SNTND. +BS. EXTREMITIES: 2+ pulses, warm, well-perfused, trace pedal edema. NEUROLOGICAL: Cranial nerves II through XII grossly intact. Normal speech, gait not observed. SKIN: Warm, dry, normal turgor, no rashes or lesions noted Laboratory Results - last 24 hr 06/07/17 06/08/17 06/08/17 21:41 06:16 06:30 WBC 5.1 RBC 5.51 H Hgb 10.8 Hct 35.8 MCV 65.0 L MCH 19.6 L MCHC 30.2 L RDW 17.7 H Plt Count 141 MPV 9.0 Neutrophils % 93.4 H Lymphocytes % 5.8 L Monocytes % 0.7 L Eosinophils % 0.1 D Basophils % 0.0 Sodium Potassium Chloride Carbon Dioxide Anion Gap BUN Creatinine Creat Clearance w eGFR POC Glucometer 261 168 Random Glucose Calcium Total Bilirubin AST ALT Alkaline Phosphatase Total Protein Albumin 06/08/17 06/08/17 06/08/17 06:30 11:52 16:37 WBC RBC Hgb Hct MCV MCH MCHC RDW Plt Count MPV Neutrophils % Lymphocytes % Monocytes % Eosinophils % Basophils % Sodium 139 Potassium 4.4 Chloride 94 L Carbon Dioxide 43 H Anion Gap 2 L BUN 40 H Creatinine 0.7 Creat Clearance w eGFR > 60 POC Glucometer 186 273 Random Glucose 160 H Calcium 8.8 Total Bilirubin 2.3 H D AST 10 L ALT 19 Alkaline Phosphatase 47 Total Protein 5.8 L Albumin 2.6 L Active Medications Generic Name Dose Route Start Last Admin Trade Name Freq PRN Reason Stop Dose Admin Acetaminophen 650 mg 06/01/17 17:47 06/01/17 18:07 Tylenol - PO 325 mg Q6H PRN Administration PAIN LEVEL 4 - 6 Apixaban 5 mg 06/04/17 15:15 06/08/17 09:24 Eliquis - PO 5 mg BID [facility] Administration Atorvastatin Calcium 40 mg 05/29/17 22:00 06/07/17 21:44 Lipitor - PO 40 mg HS [facility] Administration Diltiazem HCl 10 mg 06/04/17 03:03 Cardizem Injection - IVPUSH Q4H PRN HR > 120 Furosemide 20 mg 06/06/17 11:24 06/08/17 09:24 Lasix - PO 20 mg DAILY [facility] Administration Insulin Aspart 1 vial 06/02/17 11:51 06/08/17 17:13 Novolog Vial Sliding Scale - SQ 10 units ACHS [facility] Administration Protocol Insulin Detemir 26 units 06/05/17 13:08 06/08/17 06:23 Levemir Vial SQ 26 units BID@0700,2200 [facility] Administration Metoprolol Succinate 25 mg 06/07/17 15:30 06/08/17 09:25 Toprol Xl - PO 25 mg DAILY [facility] Administration Nitrofurantoin Macrocrystals 50 mg 06/02/17 18:00 06/08/17 17:13 Macrodantin - PO 50 mg Q6HPO [facility] Administration Pantoprazole Sodium 40 mg 06/05/17 13:11 06/08/17 09:24 Protonix - PO 40 mg DAILY [facility] Administration Polyethylene Glycol 17 gm 06/02/17 10:00 06/08/17 09:25 Miralax (For Daily Use) - PO 17 gm DAILY [facility] Administration Prednisone 60 mg 06/08/17 10:00 06/08/17 09:24 Deltasone - PO 60 mg DAILY [facility] Administration Senna 1 tab 06/01/17 22:00 06/07/17 21:44 Senna - PO 1 tab HS [facility] Administration Tramadol HCl 50 mg 06/06/17 08:57 Ultram - PO Q6H PRN PAIN LEVEL 4 - 6 Valsartan 40 mg 05/30/17 10:00 06/08/17 09:24 Diovan - PO 40 mg DAILY [facility] Administration ASSESSMENT/PLAN: A: 82 year-old female with a PMH significant for HTN, HLD, CAD s/p HI s/p stents x 2 (2013), systolic and diastolic heart failure, COPD on home O2 (intubations x 3 ), IDDM, and arthritis. Admitted for acute hypercapnic and hypoxic respiratory failure, influenza B, COPD exacerbation, and systolic heart failure exacerbation. P: Acute on chronic hypercapnic and hypoxic respiratory failure - prednisone 60mg daily - Bipap prn - Completed Tamiflu - Duonebs - Pulm following Bilateral lower ext pain - Doppler (-)DVT - ultram prn - PT Kelbsiella UTI - Complete 7 days of macrobid 50mg q6 (day 6) Acute on chronic systolic and diastolic heart failure - Lasix PO 40mg daily - Lopressor 25mg daily Hypertension - Controlled - Diovan - lopressor Hyperlipidemia - Lipitor CAD s/p HI s/p stents - Eliquis 5mg BID Dysphagia - Hx of esophageal stricture, chronic - Dysphagia minced diet with nectar thick fluids - MBS when more stable DM II - Levemir 26units BID - ISS - FS qACHS F/E/N - dysphagia diet - replete prn PPX - Eliquis - PT Dispo- requires continued inpatient treatment Visit type - Emergency Visit Emergency Visit: Yes ED Registration Date: 05/28/17 Care time: The patient presented to the Emergency Department on the above date and was hospitalized for further evaluation of their emergent condition. - New Patient This patient is new to me today: No - Critical Care Critical Care patient: No
[2017-06-08] MEDS: ATORVASTATIN CA 40 MG TABLET (FP) PO SCH (21:04)
[2017-06-08] MEDS: SENNOSIDES 8.6MG TABLET (FP) PO SCH (21:04)
[2017-06-08] MEDS ORDERED: ALBUTEROL SO4 0.083% IH SOL 2.5 MG/3 ML VIAL.NEB. NEB PRN (22:48)
[2017-06-09] MEDS: NITROFURANTOIN MACROCRYSTAL 50 MG CAPSULE (FP) PO SCH ×2 (06:24→13:33)
[2017-06-09] MEDS: INSULIN SLIDING SCALE (NOVOLOG) 1 VIAL SQ SCH ×4 (06:24→22:19)
[2017-06-09] MEDS: INSULIN DETEMIR 100 UNITS/ML MDV SQ SCH ×2 (06:24→22:18)
[2017-06-09] MEDS ORDERED: INSULIN (NOVOLOG) ASPART 100 UNITS/ML 10ML VIAL ONE (06:36)
[2017-06-09] MEDS: metoPROLOL SUCCINATE 25 MG TAB.SR.24H (FP) PO SCH (09:33)
[2017-06-09] MEDS: predniSONE 20 MG TABLET (UD) PO SCH (09:33)
[2017-06-09] MEDS: APIXABAN 5 MG TABLET PO SCH ×2 (09:33→22:19)
[2017-06-09] MEDS: FUROSEMIDE 40 MG TABLET (FP) PO SCH (09:33)
[2017-06-09] MEDS: PANTOPRAZOLE 40 MG TABLET (FP) PO SCH (09:33)
[2017-06-09] MEDS: VALSARTAN 40 MG TABLET (FP) PO SCH (09:34)
[2017-06-09] MEDS: POLYETHYLENE GLYCOL 3350 119 GM BTL PO SCH (09:34)
--- NOTE | 2017-06-09 10:18 | PN ---
Progress Note, Physician Chief Complaint: Events noted Not in distress History of Present Illness: Patient was seen and examined. Awake and alert. Chart was reviewed Denies chest pain or SOB - Current Medication List Current Medications: Active Medications Acetaminophen (Tylenol -) 650 mg PO Q6H PRN PRN Reason: PAIN LEVEL 4 - 6 Last Admin: 06/01/17 18:07 Dose: 325 mg Albuterol Sulfate (Ventolin 0.083% Nebulizer Soln -) 1 amp NEB Q6H PRN PRN Reason: SHORT OF BREATH/WHEEZING Apixaban (Eliquis -) 5 mg PO BID [facility] Last Admin: 06/09/17 09:33 Dose: 5 mg Atorvastatin Calcium (Lipitor -) 40 mg PO HS [facility] Last Admin: 06/08/17 21:04 Dose: 40 mg Diltiazem HCl (Cardizem Injection -) 10 mg IVPUSH Q4H PRN PRN Reason: HR > 120 Furosemide (Lasix -) 20 mg PO DAILY [facility] Last Admin: 06/09/17 09:33 Dose: 20 mg Insulin Aspart (Novolog Vial Sliding Scale -) 1 vial SQ ACHS [facility] PRN Reason: Protocol Last Admin: 06/09/17 06:24 Dose: 6 units Insulin Detemir (Levemir Vial) 26 units SQ BID@0700,2200 [facility] Last Admin: 06/09/17 06:24 Dose: 26 units Metoprolol Succinate (Toprol Xl -) 25 mg PO DAILY [facility] Last Admin: 06/09/17 09:33 Dose: 25 mg Nitrofurantoin Macrocrystals (Macrodantin -) 50 mg PO Q6HPO [facility] Last Admin: 06/09/17 06:24 Dose: 50 mg Pantoprazole Sodium (Protonix -) 40 mg PO DAILY [facility] Last Admin: 06/09/17 09:33 Dose: 40 mg Polyethylene Glycol (Miralax (For Daily Use) -) 17 gm PO DAILY [facility] Last Admin: 06/09/17 09:34 Dose: 17 gm Prednisone (Deltasone -) 60 mg PO DAILY [facility] Last Admin: 06/09/17 09:33 Dose: 60 mg Senna (Senna -) 1 tab PO HS [facility] Last Admin: 06/08/17 21:04 Dose: 1 tab Valsartan (Diovan -) 40 mg PO DAILY [facility] Last Admin: 06/09/17 09:34 Dose: 40 mg - Objective Vital Signs: Vital Signs Temperature 98.4 F 06/09/17 10:00 Pulse Rate 48 L 06/09/17 10:00 Respiratory Rate 20 06/09/17 10:00 Blood Pressure 114/52 06/09/17 10:00 O2 Sat by Pulse Oximetry (%) 98 06/09/17 10:00 Eyes: Yes: Conjunctiva Clear, PERRL HENT: Yes: Atraumatic Neck: Yes: Supple Cardiovascular: Yes: Regular Rate and Rhythm, S1, S2. No: Murmur Respiratory: Yes: CTA Bilaterally Gastrointestinal: Yes: Normal Bowel Sounds, Soft. No: Tenderness Edema: No Labs: CBC, BMP 06/08/17 06:30 06/08/17 06:30 Problem List - Problems (1) Acute hypercapnic respiratory failure Code(s): J96.02 - ACUTE RESPIRATORY FAILURE WITH HYPERCAPNIA (2) Acute on chronic diastolic (congestive) heart failure Code(s): I50.33 - ACUTE ON CHRONIC DIASTOLIC (CONGESTIVE) HEART FAILURE (3) Acute on chronic respiratory failure with hypoxia and hypercapnia Code(s): J96.21 - ACUTE AND CHRONIC RESPIRATORY FAILURE WITH HYPOXIA; J96.22 - ACUTE AND CHRONIC RESPIRATORY FAILURE WITH HYPERCAPNIA (4) Demand ischemia Code(s): I24.8 - OTHER FORMS OF ACUTE ISCHEMIC HEART DISEASE (5) Influenza B Code(s): J10.1 - FLU DUE TO OTH IDENT INFLUENZA VIRUS W OTH RESP MANIFEST (6) Paroxysmal atrial fibrillation with rapid ventricular response Code(s): I48.0 - PAROXYSMAL ATRIAL FIBRILLATION (7) ASHD (arteriosclerotic heart disease) Code(s): I25.10 - ATHSCL HEART DISEASE OF [place] CORONARY ARTERY W/O ANG PCTRS (8) [id number] kidney injury Code(s): N17.9 - ACUTE KIDNEY FAILURE, UNSPECIFIED; N18.9 - CHRONIC KIDNEY DISEASE, UNSPECIFIED Qualifiers: Chronic kidney disease stage: stage 2 (mild) (9) Diabetes mellitus Code(s): E11.9 - TYPE 2 DIABETES MELLITUS WITHOUT COMPLICATIONS Qualifiers: Diabetes mellitus type: type 2 Diabetes mellitus complication status: without complication Diabetes mellitus nursing home insulin use: without exterminator helper use Qualified Code(s): E11.9 - Type 2 diabetes mellitus without complications (10) HTN (hypertension) Code(s): I10 - ESSENTIAL (PRIMARY) HYPERTENSION Qualifiers: Hypertension type: essential hypertension Qualified Code(s): I10 - Essential (primary) hypertension (11) History of coronary artery stent placement Code(s): Z95.5 - PRESENCE OF CORONARY ANGIOPLASTY IMPLANT AND GRAFT (12) Hyperlipidemia Code(s): E78.5 - HYPERLIPIDEMIA, UNSPECIFIED Qualifiers: Hyperlipidemia type: pure hypercholesterolemia Qualified Code(s): E78.00 - Pure hypercholesterolemia, unspecified; E78.0 - Pure hypercholesterolemia (13) TIA (transient ischemic attack) Code(s): G45.9 - TRANSIENT CEREBRAL ISCHEMIC ATTACK, UNSPECIFIED Qualifiers: Transient cerebral ischemia type: unspecified Qualified Code(s): G45.9 - Transient cerebral ischemic attack, unspecified Assessment/Plan 1. Paroxysmal atrial fibrillation - [id number] 2. Acute on Chronic Hypoxic and Hypercapneic Respiratory Failure 3. Influenza B 4. Acute COPD Exacerbation 5. Systolic/diastolic LV dysfunction with chronic class I-II NYHA classification LV failure, clinically compensated/euvolemic 6. CAD post [place], PCI (stent), demand ischemia 7. HTN 8. DM 9. Hypercholesterolemia 10. UTI PLAN: 1 Continue Lasix with monitoring renal function and electrolytes 2. Continue Eliquis 5 bid given elevated stroke risk score 3. Continue Lopressor and Diovan 4. Continue Lipitor 5. IV steroids with GI protection, bronchodilators, Bipap and O2 6. Antibiotics and Tamiflu as per the ID service Further plans are to follow. Camilo Bergeron MD
--- NOTE | 2017-06-09 11:59 | PN ---
Progress Note, Physician History of Present Illness: pulmonary awake,alert,-resp distress - Current Medication List Current Medications: Active Medications Acetaminophen (Tylenol -) 650 mg PO Q6H PRN PRN Reason: PAIN LEVEL 4 - 6 Last Admin: 06/01/17 18:07 Dose: 325 mg Albuterol Sulfate (Ventolin 0.083% Nebulizer Soln -) 1 amp NEB Q6H PRN PRN Reason: SHORT OF BREATH/WHEEZING Apixaban (Eliquis -) 5 mg PO BID [facility] Last Admin: 06/09/17 09:33 Dose: 5 mg Atorvastatin Calcium (Lipitor -) 40 mg PO HS [facility] Last Admin: 06/08/17 21:04 Dose: 40 mg Diltiazem HCl (Cardizem Injection -) 10 mg IVPUSH Q4H PRN PRN Reason: HR > 120 Furosemide (Lasix -) 20 mg PO DAILY [facility] Last Admin: 06/09/17 09:33 Dose: 20 mg Insulin Aspart (Novolog Vial Sliding Scale -) 1 vial SQ [facility] PRN Reason: Protocol Last Admin: 06/09/17 06:24 Dose: 6 units Insulin Detemir (Levemir Vial) 26 units SQ BID@0700,2200 [facility] Last Admin: 06/09/17 06:24 Dose: 26 units Metoprolol Succinate (Toprol Xl -) 25 mg PO DAILY [facility] Last Admin: 06/09/17 09:33 Dose: 25 mg Nitrofurantoin Macrocrystals (Macrodantin -) 50 mg PO Q6HPO [facility] Last Admin: 06/09/17 06:24 Dose: 50 mg Pantoprazole Sodium (Protonix -) 40 mg PO DAILY [facility] Last Admin: 06/09/17 09:33 Dose: 40 mg Polyethylene Glycol (Miralax (For Daily Use) -) 17 gm PO DAILY [facility] Last Admin: 06/09/17 09:34 Dose: 17 gm Prednisone (Deltasone -) 60 mg PO DAILY [facility] Last Admin: 06/09/17 09:33 Dose: 60 mg Senna (Senna -) 1 tab PO HS [facility] Last Admin: 06/08/17 21:04 Dose: 1 tab Valsartan (Diovan -) 40 mg PO DAILY [facility] Last Admin: 06/09/17 09:34 Dose: 40 mg - Objective Vital Signs: Vital Signs Temperature 98.4 F 06/09/17 10:00 Pulse Rate 48 L 06/09/17 10:00 Respiratory Rate 20 06/09/17 10:00 Blood Pressure 114/52 06/09/17 10:00 O2 Sat by Pulse Oximetry (%) 98 06/09/17 10:00 Constitutional: Yes: Well Nourished, Calm Eyes: Yes: WNL, Occular Prosthesis Neck: Yes: WNL Cardiovascular: Yes: Pulse Irregular, S1, S2 Respiratory: Yes: Diminished, Wheezes (few scattered wheezes) Gastrointestinal: Yes: Normal Bowel Sounds, Soft Extremities: Yes: WNL Edema: Yes Labs: CBC, BMP 06/08/17 06:30 06/08/17 06:30 INR, PTT INR 1.02 (0.82-1.09) 05/28/17 14:45 Problem List - Problems (1) Acute on chronic respiratory failure with hypoxia and hypercapnia Code(s): J96.21 - ACUTE AND CHRONIC RESPIRATORY FAILURE WITH HYPOXIA; J96.22 - ACUTE AND CHRONIC RESPIRATORY FAILURE WITH HYPERCAPNIA (2) Influenza B Code(s): J10.1 - FLU DUE TO OTH IDENT INFLUENZA VIRUS W OTH RESP MANIFEST (3) Shortness of breath Code(s): R06.02 - SHORTNESS OF BREATH (4) ASHD (arteriosclerotic heart disease) Code(s): I25.10 - ATHSCL HEART DISEASE OF [place] CORONARY ARTERY W/O ANG PCTRS (5) HTN (hypertension) Code(s): I10 - ESSENTIAL (PRIMARY) HYPERTENSION Qualifiers: Hypertension type: essential hypertension Qualified Code(s): I10 - Essential (primary) hypertension (6) History of coronary artery stent placement Code(s): Z95.5 - PRESENCE OF CORONARY ANGIOPLASTY IMPLANT AND GRAFT (7) Respiratory distress Code(s): R06.00 - DYSPNEA, UNSPECIFIED (8) COPD exacerbation Code(s): J44.1 - CHRONIC OBSTRUCTIVE PULMONARY DISEASE W (ACUTE) EXACERBATION (9) CHF exacerbation Code(s): I50.9 - HEART FAILURE, UNSPECIFIED Qualifiers: Qualified Code(s): I50.43 - Acute on chronic combined systolic (congestive) and diastolic (congestive) heart failure Assessment/Plan ASSESSMENT AND PLAN: Acute on Chronic Hypoxic and Hypercapneic Respiratory Failure clinically improving Influenza B Acute COPD Exacerbation improving Acute on Chronic Systolic Heart Failure Afib CAD +Troponins likely Demand Ischemia HTN DM - prednisone with taper - inhaled bronchodilators standing and PRN - BiPAP as needed - O2 to keep SpO2 >90% - monitor ABGs - lasix - monitor urine output, creatinine - glucose control while on systemic steroids - rate control as per cardiology - exercise o2 sat on ra DR CAAL
--- NOTE | 2017-06-09 16:22 | DS ---
Physical Exam: SUBJECTIVE: Patient seen and examined OBJECTIVE: Vital Signs Period Temp Pulse Resp BP Sys/Gardner Pulse Ox Last 24 Hr 97.6 F-98.7 F 48-71 16-20 92-133/42-60 97-98 PHYSICAL EXAM GENERAL: The patient is awake, alert, and fully oriented, in no acute distress. HEAD: Normal with no signs of trauma. EYES: PERRL, extraocular movements intact, sclera anicteric, conjunctiva clear. ENT: Ears normal, nares patent, oropharynx clear without exudates, moist mucous membranes. NECK: Trachea midline, full range of motion, supple. LUNGS: Breath sounds equal, clear to auscultation bilaterally, no wheezes, no crackles, no accessory muscle use. HEART: Regular rate and rhythm, S1, S2 without murmur, rub or gallop. ABDOMEN: Soft, nontender, nondistended, normoactive bowel sounds, no guarding, no rebound, no hepatosplenomegaly, no masses. EXTREMITIES: 2+ pulses, warm, well-perfused, no edema. NEUROLOGICAL: Cranial nerves II through XII grossly intact. Normal speech, gait not observed. PSYCH: Normal mood, normal affect. SKIN: Warm, dry, normal turgor, no rashes or lesions noted. LABS Laboratory Results - last 24 hr 06/06/17 06/08/17 06/08/17 17:01 16:37 21:15 POC Glucometer 446 273 313 06/09/17 06/09/17 05:48 11:20 POC Glucometer 167 86 HOSPITAL COURSE: Date of Admission:05/28/17 Date of Discharge: 06/09/17 82 year-old female with a PMH significant for HTN, HLD, CAD s/p SC s/p stents x 2 (2013), systolic and diastolic heart failure, COPD on home O2 (intubations x 3 ), IDDM, and arthritis. Admitted for acute hypercapnic and hypoxic respiratory failure, influenza B, COPD exacerbation, and heart failure exacerbation. Acute on chronic hypercapnic and hypoxic respiratory failure - prednisone 60mg daily - Bipap prn - Completed Tamiflu - Duonebs - Pulm following Bilateral lower ext pain - Doppler (-)DVT - ultram prn - PT Kelbsiella UTI - Complete 7 days of macrobid 50mg q6 (day 6) Acute on chronic systolic and diastolic heart failure - Lasix PO 40mg daily - Lopressor 25mg daily Hypertension - Controlled - Diovan - lopressor Hyperlipidemia - Lipitor CAD s/p SC s/p stents - Eliquis 5mg BID Dysphagia - Hx of esophageal stricture, chronic - Dysphagia minced diet with nectar thick fluids - MBS when more stable DM II - Levemir 26units BID - ISS - FS qACHS F/E/N - dysphagia diet - replete prn PPX - Eliquis - PT Dispo- requires continued inpatient treatment Discharge Summary Reason For Visit: RESPIRATORY DISTRESS Current Active Problems Acute hypercapnic respiratory failure (Acute) Acute on chronic diastolic (congestive) heart failure (Acute) Acute on chronic respiratory failure with hypoxia and hypercapnia (Acute) COPD exacerbation (Acute) Demand ischemia (Acute) Influenza B (Acute) Paroxysmal atrial fibrillation with rapid ventricular response (Acute) Shortness of breath (Acute) Condition: Improved - Instructions Referrals: Heena Seaman MD [Primary Care Provider] - Disposition: [facility] - Home Medications Comprehensive Discharge Medication List: Ambulatory Orders Insulin Lispro [Humalog] 12 unit SQ TIDCM 03/02/14 Clopidogrel Bisulfate [Plavix -] 75 mg PO DAILY #30 tablet 03/11/14 Metoprolol Succinate [Toprol XL -] 25 mg PO DAILY #30 tab.sr.24h 03/11/14 Pantoprazole Sodium [Protonix -] 20 mg PO DAILY #30 tablet.ec 03/11/14 Insulin (Levemir) [Levemir Flexpen -] 12 units SQ HS 05/16/17 - Discharge Referral Referred to [facility] No
--- NOTE | 2017-06-09 17:03 | PN ---
Physical Exam: SUBJECTIVE: Patient seen and examined at bedside. On nasal cannula. OBJECTIVE: Vital Signs Period Temp Pulse Resp BP Sys/Gardner Pulse Ox Last 24 Hr 97.6 F-98.7 F 48-71 16-20 92-133/42-60 97-98 GENERAL: The patient is awake, alert, and fully oriented, in no acute distress. LUNGS: Mild bibasilar crackles. HEART: Regular rate and rhythm, S1, S2 without murmur, rub or gallop. ABDOMEN: Soft, nontender, nondistended, normoactive bowel sounds EXTREMITIES: 2+ pulses, warm, well-perfused, no edema. NEUROLOGICAL: Cranial nerves II through XII grossly intact. Normal speech, gait not observed. CBCD WBC 5.1 K/mm3 (4.0-10.0) 06/08/17 06:30 RBC 5.51 M/mm3 (3.60-5.2) H 06/08/17 06:30 Hgb 10.8 GM/dL (10.7-15.3) 06/08/17 06:30 Hct 35.8 % (32.4-45.2) 06/08/17 06:30 MCV 65.0 fl (80-96) L 06/08/17 06:30 MCHC 30.2 g/dl (32.0-36.0) L 06/08/17 06:30 RDW 17.7 % (11.6-15.6) H 06/08/17 06:30 Plt Count 141 K/MM3 (134-434) 06/08/17 06:30 MPV 9.0 fl (7.5-11.1) 06/08/17 06:30 CMP Sodium 139 mmol/L (136-145) 06/08/17 06:30 Potassium 4.4 mmol/L (3.5-5.1) 06/08/17 06:30 Chloride 94 mmol/L (98-107) L 06/08/17 06:30 Carbon Dioxide 43 mmol/L (21-32) H 06/08/17 06:30 Anion Gap 2 (8-16) L 06/08/17 06:30 BUN 40 mg/dL (7-18) H 06/08/17 06:30 Creatinine 0.7 mg/dL (0.55-1.02) 06/08/17 06:30 Creat Clearance w eGFR > 60 (>60) 06/08/17 06:30 Calcium 8.8 mg/dL (8.5-10.1) 06/08/17 06:30 Total Bilirubin 2.3 mg/dL (0.2-1.0) H D 06/08/17 06:30 AST 10 U/L (15-37) L 06/08/17 06:30 ALT 19 U/L (12-78) 06/08/17 06:30 Alkaline Phosphatase 47 U/L (45-117) 06/08/17 06:30 Total Protein 5.8 g/dl (6.4-8.2) L 06/08/17 06:30 Albumin 2.6 g/dl (3.4-5.0) L 06/08/17 06:30 Laboratory Results - last 24 hr 06/06/17 06/08/17 06/09/17 17:01 21:15 05:48 POC Glucometer 446 313 167 06/09/17 06/09/17 11:20 16:40 POC Glucometer 86 113 Active Medications Generic Name Dose Route Start Last Admin Trade Name Freq PRN Reason Stop Dose Admin Acetaminophen 650 mg 06/01/17 17:47 06/01/17 18:07 Tylenol - PO 325 mg Q6H PRN Administration PAIN LEVEL 4 - 6 Albuterol Sulfate 1 amp 06/08/17 22:48 Ventolin 0.083% Nebulizer Soln - NEB Q6H PRN SHORT OF BREATH/WHEEZING Apixaban 5 mg 06/04/17 15:15 06/09/17 09:33 Eliquis - PO 5 mg BID RYANN Administration Atorvastatin Calcium 40 mg 05/29/17 22:00 06/08/17 21:04 Lipitor - PO 40 mg HS RYANN Administration Diltiazem HCl 10 mg 06/04/17 03:03 Cardizem Injection - IVPUSH Q4H PRN HR > 120 Furosemide 20 mg 06/06/17 11:24 06/09/17 09:33 Lasix - PO 20 mg DAILY RYANN Administration Insulin Aspart 1 vial 06/02/17 11:51 06/09/17 16:41 Novolog Vial Sliding Scale - SQ Not Given ACHS [facility] Protocol Insulin Detemir 26 units 06/05/17 13:08 06/09/17 06:24 Levemir Vial SQ 26 units BID@0700,2200 RYANN Administration Metoprolol Succinate 25 mg 06/07/17 15:30 06/09/17 09:33 Toprol Xl - PO 25 mg DAILY RYANN Administration Nitrofurantoin Macrocrystals 50 mg 06/02/17 18:00 06/09/17 13:33 Macrodantin - PO 50 mg Q6HPO RYANN Administration Pantoprazole Sodium 40 mg 06/05/17 13:11 06/09/17 09:33 Protonix - PO 40 mg DAILY RYANN Administration Polyethylene Glycol 17 gm 06/02/17 10:00 06/09/17 09:34 Miralax (For Daily Use) - PO 17 gm DAILY RYANN Administration Prednisone 60 mg 06/08/17 10:00 06/09/17 09:33 Deltasone - PO 60 mg DAILY RYANN Administration Senna 1 tab 06/01/17 22:00 06/08/17 21:04 Senna - PO 1 tab HS RYANN Administration Valsartan 40 mg 05/30/17 10:00 06/09/17 09:34 Diovan - PO 40 mg DAILY RYANN Administration ASSESSMENT/PLAN 82 year-old female with a PMH significant for HTN, HLD, CAD s/p SC s/p stents x 2 (2013), systolic and diastolic heart failure, COPD on home O2 (intubations x 3 ), IDDM, and arthritis. Admitted for acute hypercapnic and hypoxic respiratory failure, influenza B, COPD exacerbation, and acute on chronic heart failure. Acute on chronic hypercapnic and hypoxic respiratory failure, multifactorial --on nasal cannula --tapering PO steroids --BiPAP PRN --albuterol nebs Influenza B --completed course of Tamiflu Kelbsiella UTI --7-day course of macrobid complete Acute on chronic systolic and diastolic heart failure --continue PO lasix, Toprol XL, valsartan Hypertension --BP stable --continue Toprol XL, valsartan Hyperlipidemia --continue Lipitor Coronary artery disease s/p stents --continue apixaban Dysphagia --modified barium swallow today, upgraded diet to soft with thin liquids IDDM --continue Levemir 26 units BID --Novolog sliding scale coverage Bilateral lower extremity pain --US negative for DVT --Ultram PRN FEN Fluids: PO intake adequate Electrolytes: replete as indicated Nutrition: soft with thin liquids DVT prophylaxis: on apixiban Physical therapy Dispo: continues to require inpatient care. Family wants to take patient home. Need to set up VNS services. Likely discharge tomorrow. Full code. Visit type - Emergency Visit Emergency Visit: Yes ED Registration Date: 05/28/17 Care time: The patient presented to the Emergency Department on the above date and was hospitalized for further evaluation of their emergent condition. - New Patient This patient is new to me today: No - Critical Care Critical Care patient: No
[2017-06-09] MEDS: SENNOSIDES 8.6MG TABLET (FP) PO SCH (22:19)
[2017-06-09] MEDS: ATORVASTATIN CA 40 MG TABLET (FP) PO SCH (22:19)
[2017-06-10 06:03] VITALS: TEMP 98.5
[2017-06-10] MEDS: INSULIN DETEMIR 100 UNITS/ML MDV SQ SCH (06:28)
[2017-06-10] MEDS: INSULIN SLIDING SCALE (NOVOLOG) 1 VIAL SQ SCH ×2 (06:28→11:24)
[2017-06-10] MEDS ORDERED: predniSONE 20 MG TABLET (UD) PO SCH (07:24)
--- NOTE | 2017-06-10 07:49 | DS ---
Physical Exam: SUBJECTIVE: Patient seen and examined OBJECTIVE: Vital Signs Period Temp Pulse Resp BP Sys/Gardner Pulse Ox Last 24 Hr 97.9 F-98.8 F 47-54 16-20 92-119/42-53 98-98 PHYSICAL EXAM GENERAL: The patient is awake, alert, and fully oriented, in no acute distress. HEAD: Normal with no signs of trauma. EYES: PERRL, extraocular movements intact, sclera anicteric, conjunctiva clear. ENT: Ears normal, nares patent, oropharynx clear without exudates, moist mucous membranes. NECK: Trachea midline, full range of motion, supple. LUNGS: Breath sounds equal, clear to auscultation bilaterally, no wheezes, no crackles, no accessory muscle use. HEART: Regular rate and rhythm, S1, S2 without murmur, rub or gallop. ABDOMEN: Soft, nontender, nondistended, normoactive bowel sounds, no guarding, no rebound, no hepatosplenomegaly, no masses. EXTREMITIES: 2+ pulses, warm, well-perfused, no edema. NEUROLOGICAL: Cranial nerves II through XII grossly intact. Normal speech, gait not observed. PSYCH: Normal mood, normal affect. SKIN: Warm, dry, normal turgor, no rashes or lesions noted. LABS Laboratory Results - last 24 hr 06/06/17 06/09/17 06/09/17 17:01 11:20 16:40 POC Glucometer 446 86 113 06/09/17 06/10/17 21:40 05:56 POC Glucometer 148 133 HOSPITAL COURSE: Date of Admission:05/28/17 Date of Discharge: 06/10/17 Minutes to complete discharge: 35 Discharge Summary Reason For Visit: RESPIRATORY DISTRESS Current Active Problems Acute hypercapnic respiratory failure (Acute) Acute on chronic diastolic (congestive) heart failure (Acute) Acute on chronic respiratory failure with hypoxia and hypercapnia (Acute) COPD exacerbation (Acute) Demand ischemia (Acute) Influenza B (Acute) Paroxysmal atrial fibrillation with rapid ventricular response (Acute) Shortness of breath (Acute) Condition: Improved - Instructions Diet, Activity, Other Instructions: Five prescriptions have been sent to your pharamcy: 1. Eliquis 2. Lasix 3. Levemir 4. Medrol Dose Titi 5. Valsartan Take these medications as directed. You should NOT take aspirin or Plavix. It is important you follow up with your primary care provider within one week of your discharge. Return to the emergency department for any new or worsening symptoms. Referrals: Heena Seaman MD [Primary Care Provider] - Disposition: [facility] - Home Medications Comprehensive Discharge Medication List: Ambulatory Orders Insulin Lispro [Humalog] 12 unit SQ TIDCM 03/02/14 Metoprolol Succinate [Toprol XL -] 25 mg PO DAILY #30 tab.sr.24h 03/11/14 Pantoprazole Sodium [Protonix -] 20 mg PO DAILY #30 tablet.ec 03/11/14 Apixaban [Eliquis -] 5 mg PO BID #60 tablet 06/09/17 Furosemide [Lasix -] 20 mg PO DAILY #30 tablet 06/09/17 Insulin (Levemir) [Levemir Vial] 26 units SQ BID@0700,2200 30 Days #1 syringe Methylprednisolone [Medrol Dose Titi] 4 mg PO ASDIR #21 tablet 06/09/17 Valsartan [Diovan] 40 mg PO DAILY #30 tablet 06/09/17 This patient is new to me today: No Emergency Visit: Yes ED Registration Date: 05/28/17 Care time: The patient presented to the Emergency Department on the above date and was hospitalized for further evaluation of their emergent condition. Critical Care patient: No - Discharge Referral Referred to [facility] Med P.C.: No
[2017-06-10] MEDS: FUROSEMIDE 40 MG TABLET (FP) PO SCH (11:13)
[2017-06-10] MEDS: VALSARTAN 40 MG TABLET (FP) PO SCH (11:14)
[2017-06-10] MEDS: APIXABAN 5 MG TABLET PO SCH (11:14)
[2017-06-10] MEDS: POLYETHYLENE GLYCOL 3350 119 GM BTL PO SCH (11:14)
[2017-06-10] MEDS: metoPROLOL SUCCINATE 25 MG TAB.SR.24H (FP) PO SCH (11:14)
[2017-06-10] MEDS: PANTOPRAZOLE 40 MG TABLET (FP) PO SCH (11:14)
--- NOTE | 2017-06-10 11:17 | PN ---
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 Selected Entries 06/10/17 06/10/17 06/10/17 02:00 06:00 10:00 Breakfast Temperature 98.8 F 98.5 F 98.5 F 06/10/17 10:05 Breakfast 100% Temperature Good tolerance reported and observed. For discharge home today.
--- NOTE | 2017-06-10 12:21 | PN ---
Progress Note, Physician Chief Complaint: Events noted Not in distress History of Present Illness: Patient was seen and examined. Awake and alert. Chart was reviewed Denies chest pain or SOB - Current Medication List Current Medications: Active Medications Acetaminophen (Tylenol -) 650 mg PO Q6H PRN PRN Reason: PAIN LEVEL 4 - 6 Last Admin: 06/01/17 18:07 Dose: 325 mg Albuterol Sulfate (Ventolin 0.083% Nebulizer Soln -) 1 amp NEB Q6H PRN PRN Reason: SHORT OF BREATH/WHEEZING Apixaban (Eliquis -) 5 mg PO BID [facility] Last Admin: 06/10/17 11:14 Dose: 5 mg Atorvastatin Calcium (Lipitor -) 40 mg PO HS [facility] Last Admin: 06/09/17 22:19 Dose: 40 mg Diltiazem HCl (Cardizem Injection -) 10 mg IVPUSH Q4H PRN PRN Reason: HR > 120 Furosemide (Lasix -) 20 mg PO DAILY [facility] Last Admin: 06/10/17 11:13 Dose: 20 mg Insulin Aspart (Novolog Vial Sliding Scale -) 1 vial SQ ACHS [facility] PRN Reason: Protocol Last Admin: 06/10/17 11:24 Dose: Not Given Insulin Detemir (Levemir Vial) 26 units SQ BID@0700,2200 [facility] Last Admin: 06/10/17 06:28 Dose: 26 units Metoprolol Succinate (Toprol Xl -) 25 mg PO DAILY [facility] Last Admin: 06/10/17 11:14 Dose: 25 mg Pantoprazole Sodium (Protonix -) 40 mg PO DAILY [facility] Last Admin: 06/10/17 11:14 Dose: 40 mg Polyethylene Glycol (Miralax (For Daily Use) -) 17 gm PO DAILY [facility] Last Admin: 06/10/17 11:14 Dose: Not Given Prednisone (Deltasone -) 40 mg PO DAILY [facility] Last Admin: 06/10/17 11:14 Dose: 40 mg Senna (Senna -) 1 tab PO HS [facility] Last Admin: 06/09/17 22:19 Dose: 1 tab Valsartan (Diovan -) 40 mg PO DAILY [facility] Last Admin: 06/10/17 11:14 Dose: 40 mg - Objective Vital Signs: Vital Signs Temperature 98.5 F 06/10/17 10:00 Pulse Rate 53 L 06/10/17 10:00 Respiratory Rate 18 06/10/17 10:00 Blood Pressure 103/50 06/10/17 10:00 O2 Sat by Pulse Oximetry (%) 98 06/09/17 21:00 HENT: Yes: Atraumatic Neck: Yes: Supple Cardiovascular: Yes: Regular Rate and Rhythm, S1, S2 Respiratory: Yes: CTA Bilaterally Gastrointestinal: Yes: Normal Bowel Sounds, Soft. No: Tenderness Edema: No Problem List - Problems (1) Acute hypercapnic respiratory failure Code(s): J96.02 - ACUTE RESPIRATORY FAILURE WITH HYPERCAPNIA (2) Acute on chronic diastolic (congestive) heart failure Code(s): I50.33 - ACUTE ON CHRONIC DIASTOLIC (CONGESTIVE) HEART FAILURE (3) Acute on chronic respiratory failure with hypoxia and hypercapnia Code(s): J96.21 - ACUTE AND CHRONIC RESPIRATORY FAILURE WITH HYPOXIA; J96.22 - ACUTE AND CHRONIC RESPIRATORY FAILURE WITH HYPERCAPNIA (4) Demand ischemia Code(s): I24.8 - OTHER FORMS OF ACUTE ISCHEMIC HEART DISEASE (5) Influenza B Code(s): J10.1 - FLU DUE TO OTH IDENT INFLUENZA VIRUS W OTH RESP MANIFEST (6) Paroxysmal atrial fibrillation with rapid ventricular response Code(s): I48.0 - PAROXYSMAL ATRIAL FIBRILLATION (7) ASHD (arteriosclerotic heart disease) Code(s): I25.10 - ATHSCL HEART DISEASE OF [place] CORONARY ARTERY W/O ANG PCTRS (8) [id number] kidney injury Code(s): N17.9 - ACUTE KIDNEY FAILURE, UNSPECIFIED; N18.9 - CHRONIC KIDNEY DISEASE, UNSPECIFIED Qualifiers: Chronic kidney disease stage: stage 2 (mild) (9) Diabetes mellitus Code(s): E11.9 - TYPE 2 DIABETES MELLITUS WITHOUT COMPLICATIONS Qualifiers: Diabetes mellitus type: type 2 Diabetes mellitus complication status: without complication Diabetes mellitus residential insulin use: without residential use Qualified Code(s): E11.9 - Type 2 diabetes mellitus without complications (10) HTN (hypertension) Code(s): I10 - ESSENTIAL (PRIMARY) HYPERTENSION Qualifiers: Hypertension type: essential hypertension Qualified Code(s): I10 - Essential (primary) hypertension (11) History of coronary artery stent placement Code(s): Z95.5 - PRESENCE OF CORONARY ANGIOPLASTY IMPLANT AND GRAFT (12) Hyperlipidemia Code(s): E78.5 - HYPERLIPIDEMIA, UNSPECIFIED Qualifiers: Hyperlipidemia type: pure hypercholesterolemia Qualified Code(s): E78.00 - Pure hypercholesterolemia, unspecified; E78.0 - Pure hypercholesterolemia (13) TIA (transient ischemic attack) Code(s): G45.9 - TRANSIENT CEREBRAL ISCHEMIC ATTACK, UNSPECIFIED Qualifiers: Transient cerebral ischemia type: unspecified Qualified Code(s): G45.9 - Transient cerebral ischemic attack, unspecified Assessment/Plan 1. Paroxysmal atrial fibrillation - [id number] 2. Acute on Chronic Hypoxic and Hypercapneic Respiratory Failure 3. Influenza B 4. Acute COPD Exacerbation 5. Systolic/diastolic LV dysfunction with chronic class I-II NYHA classification LV failure, clinically compensated/euvolemic 6. CAD post PA, PCI (stent), demand ischemia 7. HTN 8. DM 9. Hypercholesterolemia 10. UTI PLAN: 1 Continue Lasix with monitoring renal function and electrolytes 2. Continue Eliquis 5 bid given elevated stroke risk score 3. Continue Lopressor and Diovan 4. Continue Lipitor 5. Steroids taper with GI protection, bronchodilators, Bipap and O2 6. Antibiotics and Tamiflu as per the ID service Further plans are to follow. Camilo Bergeron MD
--- NOTE | 2017-06-10 12:47 | PN ---
Progress Note, Physician History of Present Illness: pulmonary alert,comfortable,-resp distress - Current Medication List Current Medications: Active Medications Acetaminophen (Tylenol -) 650 mg PO Q6H PRN PRN Reason: PAIN LEVEL 4 - 6 Last Admin: 06/01/17 18:07 Dose: 325 mg Albuterol Sulfate (Ventolin 0.083% Nebulizer Soln -) 1 amp NEB Q6H PRN PRN Reason: SHORT OF BREATH/WHEEZING Apixaban (Eliquis -) 5 mg PO BID [facility] Last Admin: 06/10/17 11:14 Dose: 5 mg Atorvastatin Calcium (Lipitor -) 40 mg PO HS [facility] Last Admin: 06/09/17 22:19 Dose: 40 mg Diltiazem HCl (Cardizem Injection -) 10 mg IVPUSH Q4H PRN PRN Reason: HR > 120 Furosemide (Lasix -) 20 mg PO DAILY [facility] Last Admin: 06/10/17 11:13 Dose: 20 mg Insulin Aspart (Novolog Vial Sliding Scale -) 1 vial SQ ACHS [facility] PRN Reason: Protocol Last Admin: 06/10/17 11:24 Dose: Not Given Insulin Detemir (Levemir Vial) 26 units SQ BID@0700,2200 [facility] Last Admin: 06/10/17 06:28 Dose: 26 units Metoprolol Succinate (Toprol Xl -) 25 mg PO DAILY [facility] Last Admin: 06/10/17 11:14 Dose: 25 mg Pantoprazole Sodium (Protonix -) 40 mg PO DAILY [facility] Last Admin: 06/10/17 11:14 Dose: 40 mg Polyethylene Glycol (Miralax (For Daily Use) -) 17 gm PO DAILY [facility] Last Admin: 06/10/17 11:14 Dose: Not Given Prednisone (Deltasone -) 40 mg PO DAILY [facility] Last Admin: 06/10/17 11:14 Dose: 40 mg Senna (Senna -) 1 tab PO HS [facility] Last Admin: 06/09/17 22:19 Dose: 1 tab Valsartan (Diovan -) 40 mg PO DAILY [facility] Last Admin: 06/10/17 11:14 Dose: 40 mg - Objective Vital Signs: Vital Signs Temperature 98.5 F 06/10/17 10:00 Pulse Rate 53 L 06/10/17 10:00 Respiratory Rate 18 06/10/17 10:00 Blood Pressure 103/50 06/10/17 10:00 O2 Sat by Pulse Oximetry (%) 98 06/09/17 21:00 Constitutional: Yes: Well Nourished, Calm Eyes: Yes: WNL HENT: Yes: WNL Neck: Yes: WNL Cardiovascular: Yes: Pulse Irregular, S1, S2 Respiratory: Yes: Rhonchi (few scattered rhonchi) Gastrointestinal: Yes: Normal Bowel Sounds, Soft Extremities: Yes: WNL Edema: No Labs: CBC, BMP Problem List - Problems (1) Acute on chronic respiratory failure with hypoxia and hypercapnia Code(s): J96.21 - ACUTE AND CHRONIC RESPIRATORY FAILURE WITH HYPOXIA; J96.22 - ACUTE AND CHRONIC RESPIRATORY FAILURE WITH HYPERCAPNIA (2) Influenza B Code(s): J10.1 - FLU DUE TO OTH IDENT INFLUENZA VIRUS W OTH RESP MANIFEST (3) Shortness of breath Code(s): R06.02 - SHORTNESS OF BREATH (4) ASHD (arteriosclerotic heart disease) Code(s): I25.10 - ATHSCL HEART DISEASE OF [place] CORONARY ARTERY W/O ANG PCTRS (5) HTN (hypertension) Code(s): I10 - ESSENTIAL (PRIMARY) HYPERTENSION Qualifiers: Hypertension type: essential hypertension Qualified Code(s): I10 - Essential (primary) hypertension (6) History of coronary artery stent placement Code(s): Z95.5 - PRESENCE OF CORONARY ANGIOPLASTY IMPLANT AND GRAFT (7) Respiratory distress Code(s): R06.00 - DYSPNEA, UNSPECIFIED (8) COPD exacerbation Code(s): J44.1 - CHRONIC OBSTRUCTIVE PULMONARY DISEASE W (ACUTE) EXACERBATION (9) CHF exacerbation Code(s): I50.9 - HEART FAILURE, UNSPECIFIED Qualifiers: Qualified Code(s): I50.43 - Acute on chronic combined systolic (congestive) and diastolic (congestive) heart failure Assessment/Plan ASSESSMENT AND PLAN: Acute on Chronic Hypoxic and Hypercapneic Respiratory Failure clinically improving Influenza B Acute COPD Exacerbation improving Acute on Chronic Systolic Heart Failure Afib CAD +Troponins likely Demand Ischemia HTN DM - prednisone with taper - inhaled bronchodilators standing and PRN - BiPAP as needed - O2 to keep SpO2 >90% - monitor ABGs - lasix - monitor urine output, creatinine - glucose control while on systemic steroids - rate control as per cardiology - consider short term pulmonary rehab post discharge DR CAAL
[2017-06-10 14:24] VITALS: BP 116/59; PULSE 49
== END 2017-06-10 17:35 | disposition home health service (06) | DRG 193 ==
LOC: JER 13:22 → JERBED 18:56 → JICU 21:22 → J4S 05-29 20:55
PROVIDERS: ADMIT Internal Medicine; ATTEND Nurse Practitioner Acute Care
PROC: 5A09557 Assistance with Respiratory Ventilation, Greater than 96 Consecutive Hours, Continuous Positive Airway Pressure (ICD-10-PCS; principal; 2017-05-28)
DX: J10.1 Influenza due to other identified influenza virus with other respiratory manifestations (principal); J96.21 Acute and chronic respiratory failure with hypoxia; J96.22 Acute and chronic respiratory failure with hypercapnia; I50.23 Acute on chronic systolic (congestive) heart failure; N39.0 Urinary tract infection, site not specified; I24.8 Other forms of acute ischemic heart disease; J44.1 Chronic obstructive pulmonary disease with (acute) exacerbation; I13.0 Hypertensive heart and chronic kidney disease with heart failure and stage 1 through stage 4 chronic kidney disease, or unspecified chronic kidney disease; B96.1 Klebsiella pneumoniae [K. pneumoniae] as the cause of diseases classified elsewhere; E78.5 Hyperlipidemia, unspecified; Z98.61 Coronary angioplasty status; R13.10 Dysphagia, unspecified; E11.9 Type 2 diabetes mellitus without complications; I48.0 Paroxysmal atrial fibrillation; N18.9 Chronic kidney disease, unspecified; I25.119 Atherosclerotic heart disease of native coronary artery with unspecified angina pectoris; Z88.0 Allergy status to penicillin; K21.9 Gastro-esophageal reflux disease without esophagitis; E03.9 Hypothyroidism, unspecified
CPT/HCPCS: 36415; 36600; 71045-TC; 71046-TC-FY; 74230-TC-FY; 80048; 80053; 80061; 81003; 81015; 82550; 82803; 82962; 83036; 83721; 83735; 83880; 84100; 84443; 84484; 85025; 85379; 85610; 86850; 86900; 86901; 87040; 87070; 87086; 87186; 87430; 87804; 92611-GN; 93005; 93010; 93970-TC; 94640; 94660; 97116-GP; 97161-GP; 99284-25; J1644

== ENCOUNTER 2017-07-15 11:35 | Inpatient (IN) | payer OTHER ==
[2017-07-15] MEDS ORDERED: ALBUTEROL SO4 2.5/IPRATROPIUM 0.5 INH SOL 3 ML VIAL.NEB. NEB ONE ×2 (11:55→12:12)
--- NOTE | 2017-07-15 12:01 | PDOC ---
History of Present Illness - General History Source: Patient Exam Limitations: No Limitations - History of Present Illness Initial Comments: 07/15/17 14:22 The patient is a 82-year-old female with a significant past medical history of COPD (on 2L home O2, h/o 3 intubations). CHF, [place] (2014 s/p stent x2), IDDM, and HTN, who presents to the emergency department with worsening shortness of breath. Patient reports she began to have difficulty breathing a few days ago that worsened this morning. She states her O2 sat was approximately 70 this morning. Patient complains of associated dizziness this morning. She reports a chronic non-productive cough. Patient also presents with bilateral lower leg edema. Patient was discharged from [facility] 6 weeks ago for flu and COPD exacerbation. The patient denies chest pain, changes in vision, headache, or recent illness. The patient denies fever, chills, hemoptysis, nausea, vomit, diarrhea and constipation. The patient denies dysuria, frequency, urgency and hematuria. Allergies: penicillins, apple juice <Latia Hightower - Last Filed: 07/15/17 14:22> <Beverly Duffy - Last Filed: 07/15/17 17:29> - General Stated Complaint: DIFFICULTY BREATHING Time Seen by Provider: 07/15/17 12:01 Past History <Latia Hightower - Last Filed: 07/15/17 14:22> - Past Medical History Anemia: No Asthma: No Cancer: No Cardiac Disorders: Yes ([place] with stents) CVA: No COPD: Yes (COPD) CHF: No Dementia: No Diabetes: Yes GI Disorders: No Disorders: No HTN: Yes Hypercholesterolemia: No Liver Disease: No Seizures: Yes (?2014-LAST ONE) Thyroid Disease: No - Surgical History Abdominal Surgery: No Appendectomy: No Cardiac Surgery: Yes (cardiac cath with stents) Cholecystectomy: No Lung Surgery: No Neurologic Surgery: No Orthopedic Surgery: No - Family Disease History Family Disease History: Diabetes: Mother - Immunization History Immunization Up to Date: Yes - Suicide/Smoking/Psychosocial Hx Smoking History: Never smoked Have you smoked in the past 12 months: No Hx Alcohol Use: No Drug/Substance Use Hx: No Substance Use Type: None Hx Substance Use Treatment: No <Beverly Duffy - Last Filed: 07/15/17 17:29> - Past Medical History Allergies/Adverse Reactions: Allergies Allergy/AdvReac Type Severity Reaction Status Date / Time Penicillins Allergy Verified 07/15/17 12:02 Apple juice Allergy Uncoded 07/15/17 12:02 Home Medications: Ambulatory Orders Insulin Lispro [Humalog] 12 unit SQ TIDCM 03/02/14 Metoprolol Succinate [Toprol XL -] 25 mg PO DAILY #30 tab.sr.24h 03/11/14 Pantoprazole Sodium [Protonix -] 20 mg PO DAILY #30 tablet.ec 03/11/14 Apixaban [Eliquis -] 5 mg PO BID #60 tablet 06/09/17 Furosemide [Lasix -] 20 mg PO DAILY #30 tablet 06/09/17 Insulin (Levemir) [Levemir Vial] 26 units SQ BID@0700,2200 30 Days #1 syringe Methylprednisolone [Medrol Dose Titi] 4 mg PO ASDIR #21 tablet 06/09/17 Valsartan [Diovan] 40 mg PO DAILY #30 tablet 06/09/17 Review of Systems - Review of Systems Able to Perform ROS?: Yes Comments:: 07/15/17 14:22 GENERAL/CONSTITUTIONAL: No fever or chills. No weakness. HEAD, EYES, EARS, NOSE AND THROAT: No change in vision. No ear pain or discharge. No sore throat. CARDIOVASCULAR: No chest pain. RESPIRATORY: (+) Shortness of breath. No hemoptysis. GASTROINTESTINAL: No nausea, vomiting, diarrhea or constipation. GENITOURINARY: No dysuria, frequency, or change in urination. MUSCULOSKELETAL: No joint or muscle swelling or pain. No neck or back pain. SKIN: No rash NEUROLOGIC: No headache, vertigo, loss of consciousness, or change in strength/ sensation. ENDOCRINE: No increased thirst. No abnormal weight change. HEMATOLOGIC/LYMPHATIC: No anemia, easy bleeding, or history of blood clots. ALLERGIC/IMMUNOLOGIC: No hives or skin allergy. <Latia Hightower - Last Filed: 07/15/17 14:22> *Physical Exam - Vital Signs Last Vital Signs Temp Pulse Resp BP Pulse Ox 97.8 F 81 16 122/85 95 07/15/17 14:01 07/15/17 14:01 07/15/17 14:01 07/15/17 14:01 07/15/17 12:02 <Latia Hightower - Last Filed: 07/15/17 14:22> - Physical Exam Comments: GENERAL: Awake, alert, and fully oriented, in no acute distress HEAD: No signs of trauma EYES: PERRLA, EOMI, sclera anicteric, conjunctiva clear ENT: Auricles normal inspection, hearing grossly normal, nares patent, oropharynx clear without exudates. Moist mucosa NECK: Normal ROM, supple, no lymphadenopathy, JVD, or masses LUNGS: Dec air entry B/L, dec breath sounds bottom 2/3 of lungs B/L. +Abdominal retractions. HEART: Regular rate and rhythm, normal S1 and S2, no murmurs, rubs or gallops ABDOMEN: Soft, nontender, normoactive bowel sounds. No guarding, no rebound. No masses EXTREMITIES: Normal range of motion, 2+ pitting edema BLE to knees. No clubbing or cyanosis. No cords, erythema, or tenderness NEUROLOGICAL: Cranial nerves II through XII grossly intact. Normal speech, normal gait SKIN: Warm, Dry, normal turgor, no rashes or lesions noted. <Beverly Duffy - Last Filed: 07/15/17 17:29> ED Treatment Course - LABORATORY CBC & Chemistry Diagram: 07/15/17 12:02 07/15/17 12:02 - Medications Given in the ED: ED Medications Discontinued Medications Generic Name Dose Route Start Last Admin Trade Name Freq PRN Reason Stop Dose Admin Furosemide 40 mg 07/15/17 13:28 07/15/17 13:45 Lasix Injection - IVPUSH 07/15/17 13:29 40 mg ONCE ONE Administration <Latia Hightower - Last Filed: 07/15/17 14:22> - LABORATORY CBC & Chemistry Diagram: 07/15/17 12:02 07/15/17 12:02 <Beverly Duffy - Last Filed: 07/15/17 17:29> Medical Decision Making - Medical Decision Making Pt with prior history of CHF, admitted 6 weeks ago for flu/COPD now presenting with worsening SOB. +Peripheral edema, dec breath sounds in lower 2/3 of lungs B /L. Likely CHF. Treated with lasix. Responded well to BiPAP. <Beverly Duffy - Last Filed: 07/15/17 17:29> *DC/Admit/Observation/Transfer - Attestations Scribe Attestion: 07/15/17 14:23 Documentation prepared by Latia Hightower, acting as director of medical review for Beverly Duffy MD, MD/DO. <Latia Hightower - Last Filed: 07/15/17 14:22> - Discharge Dispostion Admit: Yes <Beverly Duffy - Last Filed: 07/15/17 17:29> Diagnosis at time of Disposition: CHF exacerbation Qualifiers: Heart failure type: unspecified Qualified Code(s): I50.9 - Heart failure, unspecified - Discharge Dispostion Condition at time of disposition: Guarded
[2017-07-15] MEDS ORDERED: FUROSEMIDE 40 MG/4 ML INJECTABLE VIAL IVPUSH ONE (13:28)
[2017-07-15 14:27] LABS: BASO % 1.1 % (0-2.0); EOS % 1.5 % (0-4.5); HEMATOCRIT 32.7 % (32.4-45.2); HEMOGLOBIN 9.9 GM/dL (10.7-15.3); LYMPH % 20.8 % (8-40); MCH 20.5 pg (25.7-33.7); MCHC 30.4 g/dl (32.0-36.0); MEAN CELL VOLUME 67.4 fl (80-96); MEAN PLT VOLUME 8.2 fl (7.5-11.1); MONO % 5.9 % (3.8-10.2); NEUT % 70.7 % (42.8-82.8); PLATELET COUNT 291 K/MM3 (134-434); RBC 4.85 M/mm3 (3.60-5.2); RDW 18.8 % (11.6-15.6)
[2017-07-15 14:45] LABS: ALBUMIN 3.3 g/dl (3.4-5.0); ANION GAP 8 (8-16); BILIRUBIN,TOTAL 1.1 mg/dL (0.2-1.0); BLOOD UREA NITROGEN 22 mg/dL (7-18); CALCIUM 8.7 mg/dL (8.5-10.1); CHLORIDE 97 mmol/L (98-107); CO2 37 mmol/L (21-32); CREATININE 0.9 mg/dL (0.55-1.02); GLUCOSE,RANDOM 80 mg/dL (74-106); POTASSIUM 4.3 mmol/L (3.5-5.1); SGOT/AST 19 U/L (15-37); SGPT/ALT 15 U/L (12-78); SODIUM 142 mmol/L (136-145); TOT PROT 6.9 g/dl (6.4-8.2)
[2017-07-15 14:47] LABS: ALK PHOS 76 U/L (45-117); N-TERMINAL BNP 9931.14 pg/ml (5-450)
--- NOTE | 2017-07-15 16:28 | EKG ---
Test Reason : Blood Pressure : / mmHG Vent. Rate : 084 BPM Atrial Rate : 084 BPM P-R Int : 170 ms QRS Dur : 130 ms QT Int : 432 ms P-R-T Axes : 070 -65 080 degrees QTc Int : 510 ms SINUS RHYTHM WITH PREMATURE ATRIAL COMPLEXES AGE UNDETERMINED INFERIOR PR LEFTWARD AXIS ABNORMAL ECG WHEN COMPARED WITH ECG OF 15-JUL-2017 12:11, PREMATURE ATRIAL COMPLEXES ARE NOW PRESENT [id number] IS NOW PRESENT Confirmed by Fahad Shah ([id number]) on 07/15/2017 4:27:59 PM Referred By: Confirmed By:Fahad Shah
--- NOTE | 2017-07-15 17:53 | HP ---
CHIEF COMPLAINT: SOB PCP: Dr. Ramirez HISTORY OF PRESENT ILLNESS: 82 year-old female with a PMH significant for HTN, HLD, CAD s/p [place] s/p stents x 2 (2013), systolic heart failure, COPD on home O2 (intubations x 3), IDDM, and hypothyroidism. Patient presented to the ED with a complaints of acute worsening of her chronic SOB. worsening bilateral lower extremity edema, and orthopnea. Seen by [facility] earlier in day and her O2 sat was reportedly 68%. [facility] actived EMS. Patient chronic cough is at baseline. She denies fever, sweats, chills. She complains of dysuria. She denies chest pain, palpitatons, diaphoresis. Patient was hospitalized 05/28-06/10/17 for similar reasons plus influenza. ER course was notable for: (1) Lasix IV 40mg x 1 (2) BiPAP - 98% on 40% FiO2 (3) Ceftriaxone x 1 Recent Travel Came to [place] in December 2016 from [place] PAST MEDICAL HISTORY: Hypertension Hyperlipidemia Coronary artery disease Systolic heart failure COPD on home O2 IDDM Arthritis GERD Hypothyroidism PAST SURGICAL HISTORY: Right total knee replacement Scalp mass resection Social History: Smoking: no Alcohol: no Drugs: no Family History: Allergies Penicillins Allergy (Verified 07/15/17 12:02) Apple juice Allergy (Uncoded 07/15/17 12:02) HOME MEDICATIONS: Home Medications Medication Instructions Recorded Insulin Lispro [Humalog] 12 unit SQ TIDCM 03/02/14 Metoprolol Succinate [Toprol XL -] 25 mg PO DAILY #30 tab.sr.24h 03/11/14 Pantoprazole Sodium [Protonix -] 20 mg PO DAILY #30 tablet.ec 03/11/14 Apixaban [Eliquis -] 5 mg PO BID #60 tablet 06/09/17 Furosemide [Lasix -] 20 mg PO DAILY #30 tablet 06/09/17 Insulin (Levemir) [Levemir Vial] 26 units SQ BID@0700,2200 30 Days 06/09/17 #1 syringe Methylprednisolone [Medrol Dose 4 mg PO ASDIR #21 tablet 06/09/17 Titi] Valsartan [Diovan] 40 mg PO DAILY #30 tablet 06/09/17 REVIEW OF SYSTEMS CONSTITUTIONAL: Absent: fever, chills, diaphoresis, generalized weakness, malaise, loss of appetite, weight change HEENT: Absent: rhinorrhea, nasal congestion, throat pain, throat swelling, difficulty swallowing, mouth swelling, ear pain, eye pain, visual changes CARDIOVASCULAR: +SOB, orthopnea, lower extemity edema Absent: chest pain, syncope, palpitations, irregular heart rate, lightheadedness , peripheral edema RESPIRATORY: Absent: cough, shortness of breath, dyspnea with exertion, orthopnea, wheezing, stridor, hemoptysis GASTROINTESTINAL: Absent: abdominal pain, abdominal distension, nausea, vomiting, diarrhea, constipation, melena, hematochezia GENITOURINARY: +dysuria Absent: dysuria, frequency, urgency, hesitancy, hematuria, flank pain, genital pain MUSCULOSKELETAL: Absent: myalgia, arthralgia, joint swelling, back pain, neck pain SKIN: Absent: rash, itching, pallor HEMATOLOGIC/IMMUNOLOGIC: Absent: easy bleeding, easy bruising, lymphadenopathy, frequent infections ENDOCRINE: Absent: unexplained weight gain, unexplained weight loss, heat intolerance, cold intolerance NEUROLOGIC: Absent: headache, focal weakness or paresthesias, dizziness, unsteady gait, seizure, mental status changes, bladder or bowel incontinence PSYCHIATRIC: Absent: anxiety, depression, suicidal or homicidal ideation, hallucinations. PHYSICAL EXAMINATION Vital Signs - 24 hr 07/15/17 07/15/17 07/15/17 11:36 12:02 14:01 Temperature 97.6 F 97.8 F Pulse Rate 92 H 83 Pulse Rate [ 81 Apical] Respiratory 18 16 Rate Blood Pressure 120/86 Blood Pressure 122/85 [Left Arm] O2 Sat by Pulse 95 95 Oximetry (%) 07/15/17 14:30 Temperature Pulse Rate 81 Pulse Rate [ Apical] Respiratory Rate Blood Pressure Blood Pressure [Left Arm] O2 Sat by Pulse 98 Oximetry (%) GENERAL: Awake, alert, and fully oriented, in no acute distress. HEAD: Normal with no signs of trauma. EYES: Pupils equal, round and reactive to light, extraocular movements intact, sclera anicteric, conjunctiva clear. No lid lag. EARS, NOSE, THROAT: Ears normal, nares patent, oropharynx clear without exudates. Moist mucous membranes. NECK: Normal range of motion, supple without lymphadenopathy, JVD, or masses. LUNGS: Poor air movement; diminished sounds on right; bibasilar crackles HEART: Regular rate and rhythm, normal S1 and S2 +murmur ABDOMEN: Soft, nontender, not distended, normoactive bowel sounds, no guarding, no rebound, no masses. MUSCULOSKELETAL: Normal range of motion at all joints. No bony deformities or tenderness. No CVA tenderness. UPPER EXTREMITIES: 2+ pulses, warm, well-perfused. No cyanosis. No clubbing. No peripheral edema. LOWER EXTREMITIES: 2+ pulses, warm, well-perfused. No calf tenderness. 3+ bilateral edema NEUROLOGICAL: Cranial nerves II-XII intact. Normal speech. Laboratory Results - last 24 hr 07/15/17 07/15/17 12:02 12:02 WBC 5.0 RBC 4.85 Hgb 9.9 L Hct 32.7 MCV 67.4 L MCH 20.5 L MCHC 30.4 L RDW 18.8 H Plt Count 291 D MPV 8.2 Neutrophils % 70.7 D Lymphocytes % 20.8 D Monocytes % 5.9 D Eosinophils % 1.5 D Basophils % 1.1 D Sodium 142 Potassium 4.3 Chloride 97 L Carbon Dioxide 37 H Anion Gap 8 BUN 22 H Creatinine 0.9 Creat Clearance w eGFR > 60 Random Glucose 80 Calcium 8.7 Total Bilirubin 1.1 H D AST 19 ALT 15 Alkaline Phosphatase 76 Creatine Kinase 50 Troponin I 0.13 H B-Natriuretic Peptide 9931.14 H Total Protein 6.9 Albumin 3.3 L ASSESSMENT/PLAN 82 year-old female with a PMH significant for HTN, HLD, CAD s/p [place] s/p stents x 2 (2013), systolic and diastolic heart failure, COPD on home O2 (intubations x 3 ), IDDM, and arthritis. Admitted for acute hypercapneic and hypoxic respiratory failure, and acute on chronic systolic and diastolic heart failure systolic. Acute on chronic hypercapnic and hypoxic respiratory failure --continue BiPAP --ABG pending COPD --duonebs Acute on chronic systolic and diastolic heart failure Moderate aortic stenosis --05/19/17 Echo: LV function mildly reduced; severe apical wall hypokinesis; apical septal wall severe hypokineses; apical lateral wall moderate hypokinesis ; moderate lateral wall hypokineses; moderate MR; mild to moderate TR; pHTN; moderate 1.1cm2 --BNP 9931 (was 18,353 on 05/28) --Lasix IV 40mg x 1 in ED --Lasix IV 40mg daily Hypertension --BP stable --continue Toprol XL, Diovan Hyperlipidemia --continue Lipitor Coronary artery disease s/p [place] s/p stents --10/2013: rotational atherectomy and YURIY PCI of mLAD and diag; residual prox LCx 90-95% calcific; 30-50% LM disease --stable --not on ASA or Plavix IDDM --Levemir BID --Novolog sliding scale GERD --Protonix Hypothyroidism --check TSH Dysuria --UA & UC pending --Ceftriaxone x 1 in ED; no fever, no leukocytosis, hold further antibiotics for now FEN Fluids: PO intake adequate Electrolytes: replete as indicated Nutrition: NPO for now, on continuous BiPAP DVT prophylaxis: on Eliquis Physical therapy Dispo: continues to require inptient care. Full Code. Visit type - Emergency Visit Emergency Visit: Yes ED Registration Date: 07/15/17 Care time: The patient presented to the Emergency Department on the above date and was hospitalized for further evaluation of their emergent condition. - New Patient This patient is new to me today: Yes Date on this admission: 07/15/17 - Critical Care Critical Care patient: No Hospitalist Screening - Colonoscopy Questionnaire Colonoscopy Questionnaire: Colonoscopy Questionnaire - Patient: 50 - 75 years old and never had a screening colonoscopy: No History of colon or rectal polyps, or CA: No History of IBD, Crohn's disease or UC: No History of abdominal radiation therapy as a child: No - Relative: 1 with colon or rectal CA, or polyps at age 60 or younger: Unknown Colon or rectal CA diagnosed at age 45 or younger: Unknown Multiple relatives with colon or rectal CA: Unknown - Outcome: Screening Result: Negative Screen
[2017-07-15] MEDS: ALBUTEROL SO4 2.5/IPRATROPIUM 0.5 INH SOL 3 ML VIAL.NEB. NEB SCH (20:00)
[2017-07-15 20:03] LABS: ALLENS TEST POSITIVE; ARTERIAL BLD GAS O2 SATURATION 97.4 % (90-98.9); ARTERIAL BLOOD GAS BASE EXCESS 7.4 meq/l (-2-2); ARTERIAL BLOOD GAS pH 7.33 (7.35-7.45); CARBOXYHEMOGLOBIN 1.5 gm% (0.5-2.0)
[2017-07-15 20:06] LABS: ARTERIAL BLOOD GAS PCO2 67.6 mmHg (35-45)
[2017-07-15] MEDS ORDERED: CARVEDILOL 3.125 MG TABLET (FP) ONE (21:25)
[2017-07-15] MEDS: APIXABAN 5 MG TABLET PO SCH (21:50)
[2017-07-15] MEDS: INSULIN DETEMIR 100 UNITS/ML MDV SQ SCH (21:50)
[2017-07-15] MEDS: DOCUSATE SODIUM 100 MG CAPSULE (FP) PO SCH (21:50)
[2017-07-15] MEDS: INSULIN (NOVOLOG) ASPART 100 UNITS/ML 10ML VIAL SQ SCH (21:51)
[2017-07-15] MEDS ORDERED: DOCUSATE SODIUM 100 MG CAPSULE (FP) PO ONE (21:51)
[2017-07-15] MEDS ORDERED: INSULIN (NOVOLOG) ASPART 100 UNITS/ML 10ML VIAL ONE (22:27)
[2017-07-16] MEDS: INSULIN (NOVOLOG) ASPART 100 UNITS/ML 10ML VIAL SQ SCH ×4 (06:22→23:39)
[2017-07-16] MEDS: INSULIN DETEMIR 100 UNITS/ML MDV SQ SCH ×2 (06:22→23:10)
--- NOTE | 2017-07-16 07:25 | PN ---
Physical Exam: SUBJECTIVE: Patient seen and examined OBJECTIVE: Vital Signs Period Temp Pulse Resp BP Sys/Gardner Pulse Ox Last 24 Hr 97.6 F-98.2 F 73-92 16-21 120-138/56-86 95-100 GENERAL: The patient is awake, alert, and fully oriented, in no acute distress. HEAD: Normal with no signs of trauma. EYES: PERRL, extraocular movements intact, sclera anicteric, conjunctiva clear. No ptosis. ENT: Ears normal, nares patent, oropharynx clear without exudates, moist mucous membranes. NECK: Trachea midline, full range of motion, supple. LUNGS: Breath sounds equal, clear to auscultation bilaterally, no wheezes, no crackles, no accessory muscle use. HEART: Regular rate and rhythm, S1, S2 without murmur, rub or gallop. ABDOMEN: Soft, nontender, nondistended, normoactive bowel sounds, no guarding, no rebound, no hepatosplenomegaly, no masses. EXTREMITIES: 2+ pulses, warm, well-perfused, no edema. NEUROLOGICAL: Cranial nerves II through XII grossly intact. Normal speech, gait not observed. PSYCH: Normal mood, normal affect. SKIN: Warm, dry, normal turgor, no rashes or lesions noted Laboratory Results - last 24 hr 07/15/17 07/15/17 07/15/17 12:02 12:02 17:56 WBC 5.0 RBC 4.85 Hgb 9.9 L Hct 32.7 MCV 67.4 L MCH 20.5 L MCHC 30.4 L RDW 18.8 H Plt Count 291 D MPV 8.2 Neutrophils % 70.7 D Lymphocytes % 20.8 D Monocytes % 5.9 D Eosinophils % 1.5 D Basophils % 1.1 D Puncture Site Left radial ABG pH 7.33 L ABG pCO2 at Pt Temp 67.6 H* ABG pO2 at Pt Temp 102.0 H D ABG HCO3 34.5 H ABG O2 Sat (Measured) 97.4 ABG O2 Content 13.3 L ABG Base Excess 7.4 H Krishan Test Positive Carboxyhemoglobin 1.5 Methemoglobin 1.1 O2 Delivery Device Bipap Oxygen Flow Rate 40% Vent Mode S/t Vent Rate 14 PEEP 0.0 Pressure Support Vent 12/6 Sodium 142 Potassium 4.3 Chloride 97 L Carbon Dioxide 37 H Anion Gap 8 BUN 22 H Creatinine 0.9 Creat Clearance w eGFR > 60 POC Glucometer Random Glucose 80 Calcium 8.7 Total Bilirubin 1.1 H D AST 19 ALT 15 Alkaline Phosphatase 76 Creatine Kinase 50 Troponin I 0.13 H B-Natriuretic Peptide 9931.14 H Total Protein 6.9 Albumin 3.3 L 07/15/17 07/15/17 07/16/17 21:02 21:14 06:06 WBC RBC Hgb Hct MCV MCH MCHC RDW Plt Count MPV Neutrophils % Lymphocytes % Monocytes % Eosinophils % Basophils % Puncture Site ABG pH ABG pCO2 at Pt Temp ABG pO2 at Pt Temp ABG HCO3 ABG O2 Sat (Measured) ABG O2 Content ABG Base Excess Krishan Test Carboxyhemoglobin Methemoglobin O2 Delivery Device Oxygen Flow Rate Vent Mode Vent Rate PEEP Pressure Support Vent Sodium Potassium Chloride Carbon Dioxide Anion Gap BUN Creatinine Creat Clearance w eGFR POC Glucometer 109.10345 98 Random Glucose Calcium Total Bilirubin AST ALT Alkaline Phosphatase Creatine Kinase 42 Troponin I 0.16 H B-Natriuretic Peptide Total Protein Albumin Active Medications Generic Name Dose Route Start Last Admin Trade Name Freq PRN Reason Stop Dose Admin Albuterol/Ipratropium 1 amp 07/15/17 20:00 07/15/17 20:00 Duoneb - NEB 1 amp RQID RYANN Administration Apixaban 5 mg 07/15/17 22:00 07/15/17 21:50 Eliquis - PO 5 mg BID RYANN Administration Docusate Sodium 300 mg 07/15/17 22:00 07/15/17 21:50 Colace - PO 300 mg HS RYANN Administration Insulin Aspart 1 units 07/15/17 22:00 07/16/17 06:22 Novolog Vial SQ Not Given ACHS [facility] Protocol Insulin Detemir 26 units 07/15/17 22:00 07/16/17 06:22 Levemir Vial SQ Not Given BID@0700,2200 [facility] Metoprolol Succinate 25 mg 07/16/17 10:00 Toprol Xl - PO DAILY RYANN Pantoprazole Sodium 20 mg 07/16/17 10:00 Protonix - PO DAILY [facility] Polyethylene Glycol 17 gm 07/16/17 10:00 Miralax (For Daily Use) - PO DAILY [facility] Valsartan 40 mg 07/16/17 10:00 Diovan - PO DAILY RYANN ASSESSMENT/PLAN: 82 year-old female with a PMH significant for HTN, HLD, CAD s/p [place] s/p stents x 2 (2013), systolic and diastolic heart failure, COPD on home O2 (intubations x 3 ), IDDM, and arthritis. Admitted for acute hypercapneic and hypoxic respiratory failure, and acute on chronic systolic and diastolic heart failure systolic. Acute on chronic hypercapnic and hypoxic respiratory failure --off BiPAP, satting 95% on 4L COPD --duonebs Acute on chronic systolic and diastolic heart failure Moderate aortic stenosis --05/19/17 Echo: LV function mildly reduced; severe apical wall hypokinesis; apical septal wall severe hypokineses; apical lateral wall moderate hypokinesis ; moderate lateral wall hypokineses; moderate MR; mild to moderate TR; pHTN; moderate 1.1cm2 --BNP 9931 (was 18,353 on 05/28) --Lasix IV 40mg BID --daily weights, strict I&Os --repeat CXR in am Hypertension --BP stable --continue Toprol XL, Diovan Hyperlipidemia --continue Lipitor Coronary artery disease s/p [place] s/p stents --10/2013: rotational atherectomy and YURIY PCI of mLAD and diag; residual prox LCx 90-95% calcific; 30-50% LM disease --stable --not on ASA or Plavix IDDM --Levemir BID --Novolog sliding scale GERD --Protonix Hypothyroidism --check TSH Dysuria --UA & UC pending --Ceftriaxone x 1 in ED; no fever, no leukocytosis, hold further antibiotics for now FEN Fluids: PO intake adequate Electrolytes: replete as indicated Nutrition: diabetic/low sodium DVT prophylaxis: on Eliquis Physical therapy Dispo: continues to require inpatient care. Full Code. Visit type - Emergency Visit Emergency Visit: Yes ED Registration Date: 07/15/17 Care time: The patient presented to the Emergency Department on the above date and was hospitalized for further evaluation of their emergent condition. - New Patient This patient is new to me today: No - Critical Care Critical Care patient: No
[2017-07-16 07:52] LABS: BASO % 0.8 % (0-2.0); EOS % 2.8 % (0-4.5); HEMATOCRIT 32.4 % (32.4-45.2); HEMOGLOBIN 9.8 GM/dL (10.7-15.3); LYMPH % 23.6 % (8-40); MCH 20.6 pg (25.7-33.7); MCHC 30.4 g/dl (32.0-36.0); MEAN CELL VOLUME 67.7 fl (80-96); MEAN PLT VOLUME 8.3 fl (7.5-11.1); MONO % 9.3 % (3.8-10.2); NEUT % 63.5 % (42.8-82.8); PLATELET COUNT 252 K/MM3 (134-434); RBC 4.78 M/mm3 (3.60-5.2); RDW 17.9 % (11.6-15.6); WHITE BLOOD COUNT 3.6 K/mm3 (4.0-10.0)
[2017-07-16 08:15] LABS: CHLORIDE 96 mmol/L (98-107); POTASSIUM 4.3 mmol/L (3.5-5.1); SODIUM 142 mmol/L (136-145)
[2017-07-16 08:32] LABS: ALBUMIN 2.9 g/dl (3.4-5.0); ALK PHOS 67 U/L (45-117); ANION GAP 8 (8-16); BILIRUBIN,TOTAL 1.2 mg/dL (0.2-1.0); BLOOD UREA NITROGEN 19 mg/dL (7-18); CALCIUM 8.5 mg/dL (8.5-10.1); CO2 38 mmol/L (21-32); CREATININE 0.7 mg/dL (0.55-1.02); GLUCOSE,RANDOM 91 mg/dL (74-106); PHOSPHOROUS 3.6 mg/dL (2.5-4.9); SGOT/AST 16 U/L (15-37); SGPT/ALT 13 U/L (12-78); TOT PROT 6.3 g/dl (6.4-8.2)
[2017-07-16] MEDS: ALBUTEROL SO4 2.5/IPRATROPIUM 0.5 INH SOL 3 ML VIAL.NEB. NEB SCH ×4 (09:00→21:00)
[2017-07-16] MEDS ORDERED: ALBUTEROL SO4 0.083% IH SOL 2.5 MG/3 ML VIAL.NEB. NEB ONE ×2 (09:09→12:34)
[2017-07-16] MEDS: POLYETHYLENE GLYCOL 3350 119 GM BTL PO SCH (10:13)
[2017-07-16] MEDS: VALSARTAN 40 MG TABLET (FP) PO SCH (10:13)
[2017-07-16] MEDS: metoPROLOL SUCCINATE 25 MG TAB.SR.24H (FP) PO SCH (10:13)
[2017-07-16] MEDS: PANTOPRAZOLE 20 MG TABLET (FP) PO SCH (10:13)
[2017-07-16] MEDS: APIXABAN 5 MG TABLET PO SCH ×2 (10:13→23:13)
[2017-07-16 11:00] LABS: ARTERIAL BLD GAS O2 SATURATION 96.2 % (90-98.9); ARTERIAL BLOOD GAS BASE EXCESS 8.6 meq/l (-2-2); ARTERIAL BLOOD GAS PCO2 70.8 mmHg (35-45); ARTERIAL BLOOD GAS PO2 85.9 mmHg (68-100); ARTERIAL BLOOD GAS pH 7.33 (7.35-7.45)
[2017-07-16 11:03] LABS: ALLENS TEST POSITIVE
[2017-07-16] MEDS ORDERED: ACETAMINOPHEN 325 MG TABLET (FP) PO PRN (11:20)
[2017-07-16 12:09] VITALS: BMI 37.9
[2017-07-16] MEDS ORDERED: FUROSEMIDE 40 MG/4 ML INJECTABLE VIAL IVPUSH STA (16:12)
[2017-07-16] MEDS: DOCUSATE SODIUM 100 MG CAPSULE (FP) PO SCH (23:13)
[2017-07-16] MEDS: INSULIN SLIDING SCALE (NOVOLOG) 1 VIAL SQ SCH (23:40)
[2017-07-17 05:29] LABS: URINE APPEARANCE CLEAR; URINE BILIRUBIN NEGATIVE (NEGATIVE); URINE BLOOD NEGATIVE (NEGATIVE); URINE COLOR STRAW; URINE GLUCOSE (UA) NEGATIVE (NEGATIVE); URINE KETONE NEGATIVE (NEGATIVE); URINE LEUK ESTERASE NEGATIVE (NEGATIVE); URINE NITRITE NEGATIVE (NEGATIVE); URINE PROTEIN NEGATIVE (NEGATIVE); URINE UROBILINOGEN NEGATIVE mg/dL (0.2-1.0)
[2017-07-17] MEDS: INSULIN DETEMIR 100 UNITS/ML MDV SQ SCH ×2 (06:52→21:27)
[2017-07-17] MEDS: FUROSEMIDE 40 MG/4 ML INJECTABLE VIAL IVPUSH SCH ×2 (06:53→14:07)
[2017-07-17] MEDS: INSULIN SLIDING SCALE (NOVOLOG) 1 VIAL SQ SCH ×4 (06:53→21:27)
[2017-07-17] MEDS: ALBUTEROL SO4 2.5/IPRATROPIUM 0.5 INH SOL 3 ML VIAL.NEB. NEB SCH ×4 (07:28→20:32)
[2017-07-17 07:58] LABS: BASO % 0.7 % (0-2.0); EOS % 2.4 % (0-4.5); HEMATOCRIT 29.8 % (32.4-45.2); HEMOGLOBIN 9.3 GM/dL (10.7-15.3); LYMPH % 19.9 % (8-40); MCH 20.8 pg (25.7-33.7); MCHC 31.2 g/dl (32.0-36.0); MEAN CELL VOLUME 66.7 fl (80-96); MEAN PLT VOLUME 8.2 fl (7.5-11.1); MONO % 7.9 % (3.8-10.2); NEUT % 69.1 % (42.8-82.8); PLATELET COUNT 224 K/MM3 (134-434); RBC 4.47 M/mm3 (3.60-5.2); RDW 18.4 % (11.6-15.6); WHITE BLOOD COUNT 3.7 K/mm3 (4.0-10.0)
[2017-07-17 08:21] LABS: CHLORIDE 97 mmol/L (98-107); POTASSIUM 4.4 mmol/L (3.5-5.1); SODIUM 144 mmol/L (136-145)
[2017-07-17 08:33] LABS: ALBUMIN 2.8 g/dl (3.4-5.0); ALK PHOS 61 U/L (45-117); ANION GAP 7 (8-16); BILIRUBIN,TOTAL 1.5 mg/dL (0.2-1.0); BLOOD UREA NITROGEN 16 mg/dL (7-18); CALCIUM 8.5 mg/dL (8.5-10.1); CO2 40 mmol/L (21-32); CREATININE 0.7 mg/dL (0.55-1.02); GLUCOSE,RANDOM 76 mg/dL (74-106); MAGNESIUM 1.9 mg/dL (1.8-2.4); SGOT/AST 15 U/L (15-37); SGPT/ALT 14 U/L (12-78); TOT PROT 5.8 g/dl (6.4-8.2)
[2017-07-17] MEDS: VALSARTAN 40 MG TABLET (FP) PO SCH (09:37)
[2017-07-17] MEDS: APIXABAN 5 MG TABLET PO SCH ×2 (09:37→21:27)
[2017-07-17] MEDS: PANTOPRAZOLE 20 MG TABLET (FP) PO SCH (09:38)
[2017-07-17] MEDS: POLYETHYLENE GLYCOL 3350 119 GM BTL PO SCH (09:38)
[2017-07-17] MEDS: metoPROLOL SUCCINATE 25 MG TAB.SR.24H (FP) PO SCH (09:38)
--- NOTE | 2017-07-17 13:57 | PN ---
Physical Exam: SUBJECTIVE: Patient seen and examined OBJECTIVE: Vital Signs Period Temp Pulse Resp BP Sys/Gardner Pulse Ox Last 24 Hr 98.1 F-101 F 59-83 18-20 103-127/45-66 96-100 GENERAL: Awake, alert, and fully oriented, in no acute distress. HEAD: Normal with no signs of trauma. EYES: Pupils equal, round and reactive to light, extraocular movements intact, sclera anicteric, conjunctiva clear. No lid lag. EARS, NOSE, THROAT: Ears normal, nares patent, oropharynx clear without exudates. Moist mucous membranes. NECK: Normal range of motion, supple without lymphadenopathy, JVD, or masses. LUNGS: Fine bibasilar crackles HEART: Regular rate and rhythm, normal S1 and S2 +murmur ABDOMEN: Soft, nontender, not distended, normoactive bowel sounds, no guarding, no rebound, no masses. MUSCULOSKELETAL: Normal range of motion at all joints. No bony deformities or tenderness. No CVA tenderness. UPPER EXTREMITIES: 2+ pulses, warm, well-perfused. No cyanosis. No clubbing. No peripheral edema. LOWER EXTREMITIES: 2+ pulses, warm, well-perfused. No calf tenderness. Bilateral edema 1+, significant improvement; erythema resolved NEUROLOGICAL: Cranial nerves II-XII intact. Normal speech. Laboratory Results - last 24 hr 07/16/17 07/16/17 07/17/17 16:35 23:07 00:15 WBC RBC Hgb Hct MCV MCH MCHC RDW Plt Count MPV Neutrophils % Lymphocytes % Monocytes % Eosinophils % Basophils % Sodium Potassium Chloride Carbon Dioxide Anion Gap BUN Creatinine Creat Clearance w eGFR POC Glucometer 95 169 Random Glucose Calcium Magnesium Total Bilirubin AST ALT Alkaline Phosphatase Total Protein Albumin TSH Urine Color Straw Urine Appearance Clear Urine pH 6.0 Ur Specific Willard 1.008 Urine Protein Negative Urine Glucose (UA) Negative Urine Ketones Negative Urine Blood Negative Urine Nitrite Negative Urine Bilirubin Negative Urine Urobilinogen Negative Ur Leukocyte Esterase Negative 07/17/17 07/17/17 07/17/17 06:51 07:20 07:20 WBC 3.7 L RBC 4.47 Hgb 9.3 L Hct 29.8 L MCV 66.7 L MCH 20.8 L MCHC 31.2 L RDW 18.4 H Plt Count 224 MPV 8.2 Neutrophils % 69.1 Lymphocytes % 19.9 Monocytes % 7.9 Eosinophils % 2.4 Basophils % 0.7 Sodium 144 Potassium 4.4 Chloride 97 L Carbon Dioxide 40 H Anion Gap 7 L BUN 16 Creatinine 0.7 Creat Clearance w eGFR > 60 POC Glucometer 88 Random Glucose 76 Calcium 8.5 Magnesium 1.9 Total Bilirubin 1.5 H D AST 15 ALT 14 Alkaline Phosphatase 61 Total Protein 5.8 L Albumin 2.8 L TSH 0.03 L Urine Color Urine Appearance Urine pH Ur Specific Willard Urine Protein Urine Glucose (UA) Urine Ketones Urine Blood Urine Nitrite Urine Bilirubin Urine Urobilinogen Ur Leukocyte Esterase 07/17/17 11:31 WBC RBC Hgb Hct MCV MCH MCHC RDW Plt Count MPV Neutrophils % Lymphocytes % Monocytes % Eosinophils % Basophils % Sodium Potassium Chloride Carbon Dioxide Anion Gap BUN Creatinine Creat Clearance w eGFR POC Glucometer 146 Random Glucose Calcium Magnesium Total Bilirubin AST ALT Alkaline Phosphatase Total Protein Albumin TSH Urine Color Urine Appearance Urine pH Ur Specific Willard Urine Protein Urine Glucose (UA) Urine Ketones Urine Blood Urine Nitrite Urine Bilirubin Urine Urobilinogen Ur Leukocyte Esterase Active Medications Generic Name Dose Route Start Last Admin Trade Name Freq PRN Reason Stop Dose Admin Acetaminophen 650 mg 07/16/17 11:20 07/17/17 05:22 Tylenol - PO 650 mg Q6H PRN Administration PAIN LEVEL 1-5 Albuterol/Ipratropium 1 amp 07/15/17 20:00 07/17/17 11:03 Duoneb - NEB 1 amp RQID RYANN Administration Apixaban 5 mg 07/15/17 22:00 07/17/17 09:37 Eliquis - PO 5 mg BID RYANN Administration Docusate Sodium 300 mg 07/15/17 22:00 07/16/17 23:13 Colace - PO 300 mg HS [facility] Administration Furosemide 40 mg 07/17/17 06:00 07/17/17 06:53 Lasix Injection - IVPUSH 40 mg BID@0600,1400 [facility] Administration Insulin Aspart 1 vial 07/16/17 23:30 07/17/17 11:37 Novolog Vial Sliding Scale - SQ Not Given ACHS [facility] Protocol Insulin Detemir 26 units 07/15/17 22:00 07/17/17 06:52 Levemir Vial SQ Not Given BID@0700,2200 [facility] Metoprolol Succinate 25 mg 07/16/17 10:00 07/17/17 09:38 Toprol Xl - PO 25 mg DAILY RYANN Administration Pantoprazole Sodium 20 mg 07/16/17 10:00 07/17/17 09:38 Protonix - PO 20 mg DAILY RYANN Administration Polyethylene Glycol 17 gm 07/16/17 10:00 07/17/17 09:38 Miralax (For Daily Use) - PO Not Given DAILY RYANN Valsartan 40 mg 07/16/17 10:00 07/17/17 09:37 Diovan - PO 40 mg DAILY RYANN Administration ASSESSMENT/PLAN 82 year-old female with a PMH significant for HTN, HLD, CAD s/p IN s/p stents x 2 (2013), systolic and diastolic heart failure, COPD on home O2 (intubations x 3 ), IDDM, and arthritis. Admitted for acute hypercapneic and hypoxic respiratory failure, and acute on chronic systolic and diastolic heart failure systolic. Acute on chronic hypercapnic and hypoxic respiratory failure --satting 95% on 3L, at baseline COPD --duonebs Acute on chronic systolic and diastolic heart failure Moderate aortic stenosis --05/19/17 Echo: LV function mildly reduced; severe apical wall hypokinesis; apical septal wall severe hypokineses; apical lateral wall moderate hypokinesis ; moderate lateral wall hypokineses; moderate MR; mild to moderate TR; pHTN; moderate 1.1cm2 --BNP 9931 (was 18,353 on 05/28) --continue Lasix IV 40mg BID, renal function is stable Hypertension --BP stable --continue Toprol XL, Diovan Hyperlipidemia --continue Lipitor Coronary artery disease s/p IN s/p stents --10/2013: rotational atherectomy and YURIY PCI of mLAD and diag; residual prox LCx 90-95% calcific; 30-50% LM disease --stable --not on ASA or Plavix IDDM --Levemir BID --Novolog sliding scale GERD --Protonix Hypothyroidism --TSH low 0.03 --check free T3, free T4 Dysuria --UA & UC pending --Ceftriaxone x 1 in ED; no fever, no leukocytosis, hold further antibiotics for now FEN Fluids: PO intake adequate Electrolytes: replete as indicated Nutrition: diabetic low sodium DVT prophylaxis: on Eliquis Physical therapy Dispo: continues to require inptient care. Full Code. Visit type - Emergency Visit Emergency Visit: Yes ED Registration Date: 07/15/17 Care time: The patient presented to the Emergency Department on the above date and was hospitalized for further evaluation of their emergent condition. - New Patient This patient is new to me today: No - Critical Care Critical Care patient: No
--- NOTE | 2017-07-17 15:56 | PN ---
Progress Note (short form) - Note Progress Note: ID Consult dictated 82 y/o female admitted with COPD exacerbation Spiked temp 101, now 100. Leukopenic WBC 3.7 CXR possible basilar infiltrates ? Sepsis secondary to lung source ? viral syndrome Recent hospitalizations Recent Influenza PCN allergy Obtain cultures Empiric ceftriaxone
--- NOTE | 2017-07-17 16:52 | CONS ---
DATE OF CONSULTATION: 07/17/2017 The patient is an 82-year-old female who is evaluated for fever. The patient has had several recent hospitalizations for decompensated congestive heart failure and exacerbation of COPD. She is now re-admitted on July 15, 2017, with a 3-day history of worsening shortness of breath and increasing lower extremity edema. She spiked a temperature to 101 earlier today and is presently 100. She is awake and alert. She complains of a cough productive of whitish sputum. She denies any hemoptysis. No complaints of chest pain. She was recently treated for acute influenza B. She lives at home. No known ill contacts. She is a nonsmoker. She had been living in [place] and returned to [place] in December of 2016. PAST MEDICAL HISTORY: Positive for oxygen dependent COPD with 3 intubations in the past, coronary artery disease, myocardial infarction, congestive heart failure, diabetes mellitus, hypertension, hyperlipidemia. PAST SURGICAL HISTORY: Status post coronary artery stents, right total knee replacement. ALLERGIES: Allergies to PENICILLIN, nature of the allergy not known. MEDICATIONS: Diovan, Protonix, Toprol, Humalog, Levemir, Lasix, Eliquis. SOCIAL HISTORY: Lives at home in the community. Nonsmoker, nondrinker. SYSTEMS REVIEW: Neurologic: No loss of consciousness, seizure activity, or focal weakness. Cardiac: Negative chest pain or palpitations. Respiratory: As per HPI. Gastrointestinal: Negative vomiting or diarrhea. Genitourinary: Negative for urinary tract infection. LABORATORY DATA: White count 3.7, neutrophils 69, lymphocytes 19, monocytes7; hematocrit 29.8, platelet count 224, BUN 16, creatinine 0.7. Urine leukocyte esterase negative. Blood cultures negative. Chest x-ray shows increased markings at the right base, is read as bibasilar atelectatic changes/pneumonic infiltrates. PHYSICAL EXAMINATION: General: She is awake and alert, in no acute distress. Vital Signs: T-max 101. Blood pressure 127/54. Pulse 80, regular. Respirations 18 per minute. ENT: Sclerae anicteric. Dry mucous membranes. Heart Sounds: S1, S2. Lungs: Bilateral rhonchi, wheezing, and basilar crepitations. Abdomen: Obese, soft. No tenderness elicited. No mass, rebound or rigidity. Extremities: Negative for edema. Healed surgical scar, right knee. IMPRESSION: An 82-year-old female with several recent hospitalizations, now re-admitted with chronic obstructive pulmonary disease exacerbation, now with fever and leukopenia. Chest x-ray: Possible basilar infiltrates. 1. Possible sepsis secondary to lung source. 2. Rule out pneumonia. 3. Possible viral syndrome. 4. PENICILLIN allergy. Concern about sepsis or viral upper respiratory tract infection in light of fever and leukopenia. Will await blood cultures, obtain sputum culture, urine Legionella pneumococcal antigen. Repeat influenza swab. Empiric antibiotic coverage in this PENICILLIN allergic patient with ceftriaxone. Will follow. Thank you for the kind referral. MAURO AGUILAR M.D. [id number]
[2017-07-17] MEDS: CEFTRIAXONE IN IS-OSM DEXTROSE 2 GM/50 ML BAG IVPB SCH (17:19)
[2017-07-17] MEDS: DOCUSATE SODIUM 100 MG CAPSULE (FP) PO SCH (21:31)
[2017-07-18] MEDS: INSULIN SLIDING SCALE (NOVOLOG) 1 VIAL SQ SCH ×4 (06:24→21:38)
[2017-07-18] MEDS: FUROSEMIDE 40 MG/4 ML INJECTABLE VIAL IVPUSH SCH ×2 (06:24→14:09)
[2017-07-18] MEDS: INSULIN DETEMIR 100 UNITS/ML MDV SQ SCH ×2 (06:24→21:30)
[2017-07-18 07:22] LABS: BASO % 0.6 % (0-2.0); EOS % 4.2 % (0-4.5); HEMATOCRIT 32.6 % (32.4-45.2); HEMOGLOBIN 9.9 GM/dL (10.7-15.3); MCH 20.3 pg (25.7-33.7); MCHC 30.4 g/dl (32.0-36.0); MEAN CELL VOLUME 66.7 fl (80-96); MEAN PLT VOLUME 8.2 fl (7.5-11.1); MONO % 8.1 % (3.8-10.2); NEUT % 58.1 % (42.8-82.8); PLATELET COUNT 245 K/MM3 (134-434); RDW 18.3 % (11.6-15.6); WHITE BLOOD COUNT 3.8 K/mm3 (4.0-10.0)
[2017-07-18] MEDS: ALBUTEROL SO4 2.5/IPRATROPIUM 0.5 INH SOL 3 ML VIAL.NEB. NEB SCH ×4 (07:27→20:40)
--- NOTE | 2017-07-18 08:10 | PN ---
Physical Exam: SUBJECTIVE: Patient seen and examined. Feeling "omega, omega, omega." and daughter present. Discussed importance of no-added salt diet!! OBJECTIVE: Vital Signs Period Temp Pulse Resp BP Sys/Gardner Pulse Ox Last 24 Hr 97.6 F-100.0 F 67-100 18-20 95-127/50-71 94-100 GENERAL: Awake, alert, and fully oriented, in no acute distress. HEAD: Normal with no signs of trauma. EYES: Pupils equal, round and reactive to light, extraocular movements intact, sclera anicteric, conjunctiva clear. No lid lag. EARS, NOSE, THROAT: Ears normal, nares patent, oropharynx clear without exudates. Moist mucous membranes. NECK: Normal range of motion, supple without lymphadenopathy, JVD, or masses. LUNGS: CTA HEART: Regular rate and rhythm, normal S1 and S2 +murmur ABDOMEN: Soft, nontender, not distended, normoactive bowel sounds, no guarding, no rebound, no masses. MUSCULOSKELETAL: Normal range of motion at all joints. No bony deformities or tenderness. No CVA tenderness. UPPER EXTREMITIES: 2+ pulses, warm, well-perfused. No cyanosis. No clubbing. No peripheral edema. LOWER EXTREMITIES: 2+ pulses, warm, well-perfused. No calf tenderness. Bilateral edema almost completely resolved; erythema resolved NEUROLOGICAL: Cranial nerves II-XII intact. Normal speech. Laboratory Results - last 24 hr 07/17/17 07/17/17 07/17/17 07:20 07:20 11:31 WBC 3.7 L RBC 4.47 Hgb 9.3 L Hct 29.8 L MCV 66.7 L MCH 20.8 L MCHC 31.2 L RDW 18.4 H Plt Count 224 MPV 8.2 Neutrophils % 69.1 Lymphocytes % 19.9 Monocytes % 7.9 Eosinophils % 2.4 Basophils % 0.7 Sodium 144 Potassium 4.4 Chloride 97 L Carbon Dioxide 40 H Anion Gap 7 L BUN 16 Creatinine 0.7 Creat Clearance w eGFR > 60 POC Glucometer 146 Random Glucose 76 Calcium 8.5 Magnesium 1.9 Total Bilirubin 1.5 H D AST 15 ALT 14 Alkaline Phosphatase 61 Total Protein 5.8 L Albumin 2.8 L TSH 0.03 L 03/22/18 03/22/18 03/23/18 17:18 21:25 06:20 WBC RBC Hgb Hct MCV MCH MCHC RDW Plt Count MPV Neutrophils % Lymphocytes % Monocytes % Eosinophils % Basophils % Sodium Potassium Chloride Carbon Dioxide Anion Gap BUN Creatinine Creat Clearance w eGFR POC Glucometer 231 208 65 Random Glucose Calcium Magnesium Total Bilirubin AST ALT Alkaline Phosphatase Total Protein Albumin TSH 07/18/17 07:05 WBC 3.8 L RBC 4.90 Hgb 9.9 L Hct 32.6 MCV 66.7 L MCH 20.3 L MCHC 30.4 L RDW 18.3 H Plt Count 245 MPV 8.2 Neutrophils % 58.1 Lymphocytes % 29.0 D Monocytes % 8.1 Eosinophils % 4.2 Basophils % 0.6 Sodium Potassium Chloride Carbon Dioxide Anion Gap BUN Creatinine Creat Clearance w eGFR POC Glucometer Random Glucose Calcium Magnesium Total Bilirubin AST ALT Alkaline Phosphatase Total Protein Albumin TSH Active Medications Generic Name Dose Route Start Last Admin Trade Name Freq PRN Reason Stop Dose Admin Acetaminophen 650 mg 07/16/17 11:20 07/17/17 05:22 Tylenol - PO 650 mg Q6H PRN Administration PAIN LEVEL 1-5 Albuterol/Ipratropium 1 amp 07/15/17 20:00 07/18/17 07:27 Duoneb - NEB 1 amp RQID RYANN Administration Apixaban 5 mg 07/15/17 22:00 07/17/17 21:27 Eliquis - PO 5 mg BID RYANN Administration Docusate Sodium 300 mg 07/15/17 22:00 07/17/17 21:31 Colace - PO 300 mg HS RYANN Administration Furosemide 40 mg 07/17/17 06:00 07/18/17 06:24 Lasix Injection - IVPUSH 40 mg BID@0600,1400 RYANN Administration CEFTRIAXONE IN IS-OSM DEXTROSE 2 gm in 50 mls @ 100 mls/hr 07/17/17 16:15 17:19 Ceftriaxone 2 Gm-D5w Bag IVPB 100 mls/hr DAILY RYANN Administration Insulin Aspart 1 vial 07/16/17 23:30 07/18/17 06:24 Novolog Vial Sliding Scale - SQ Not Given ACHS [facility] Protocol Insulin Detemir 26 units 07/15/17 22:00 07/18/17 06:24 Levemir Vial SQ Not Given BID@0700,2200 [facility] Metoprolol Succinate 25 mg 07/16/17 10:00 07/17/17 09:38 Toprol Xl - PO 25 mg DAILY RYANN Administration Pantoprazole Sodium 20 mg 07/16/17 10:00 07/17/17 09:38 Protonix - PO 20 mg DAILY RYANN Administration Polyethylene Glycol 17 gm 07/16/17 10:00 07/17/17 09:38 Miralax (For Daily Use) - PO Not Given DAILY RYANN Valsartan 40 mg 07/16/17 10:00 07/17/17 09:37 Diovan - PO 40 mg DAILY RYANN Administration ASSESSMENT/PLAN 82 year-old female with a PMH significant for HTN, HLD, CAD s/p CT s/p stents x 2 (2013), systolic and diastolic heart failure, COPD on home O2 (intubations x 3 ), IDDM, and arthritis. Admitted for acute hypercapneic and hypoxic respiratory failure, and acute on chronic systolic and diastolic heart failure systolic. Acute on chronic hypercapnic and hypoxic respiratory failure --satting 95% on 3L, at baseline COPD --duonebs Acute on chronic systolic and diastolic heart failure Moderate aortic stenosis --05/19/17 Echo: LV function mildly reduced; severe apical wall hypokinesis; apical septal wall severe hypokineses; apical lateral wall moderate hypokinesis ; moderate lateral wall hypokineses; moderate MR; mild to moderate TR; pHTN; moderate 1.1cm2 --BNP 9931 (was 18,353 on 05/28) --down 2.5kg from yesterday; continue Lasix IV 40mg BID, renal function is stable Community acquired pneumonia --Tm 101, leukopenia, possible infiltrates on CXR --continue ceftriaxone day #2 --ID following Hypertension --BP stable --continue Toprol XL, Diovan Hyperlipidemia --continue Lipitor Coronary artery disease s/p CT s/p stents --10/2013: rotational atherectomy and YURIY PCI of mLAD and diag; residual prox LCx 90-95% calcific; 30-50% LM disease --stable --not on ASA or Plavix IDDM --Levemir BID --Novolog sliding scale GERD --Protonix Hypothyroidism --TSH low 0.03 --free T3, free T4 pending Dysuria --UA & UC negative FEN Fluids: PO intake adequate Electrolytes: replete as indicated Nutrition: diabetic low sodium DVT prophylaxis: on Eliquis Physical therapy Dispo: continues to require inpatient care. Full Code. Visit type - Emergency Visit Emergency Visit: Yes ED Registration Date: 07/15/17 Care time: The patient presented to the Emergency Department on the above date and was hospitalized for further evaluation of their emergent condition. - New Patient This patient is new to me today: No - Critical Care Critical Care patient: No
[2017-07-18 08:27] LABS: CHLORIDE 94 mmol/L (98-107); POTASSIUM 4.3 mmol/L (3.5-5.1); SODIUM 141 mmol/L (136-145)
[2017-07-18 08:34] LABS: ALBUMIN 2.8 g/dl (3.4-5.0); ALK PHOS 57 U/L (45-117); ANION GAP 4 (8-16); BILIRUBIN,TOTAL 0.9 mg/dL (0.2-1.0); BLOOD UREA NITROGEN 16 mg/dL (7-18); CALCIUM 8.1 mg/dL (8.5-10.1); CO2 43 mmol/L (21-32); CREATININE 0.7 mg/dL (0.55-1.02); MAGNESIUM 1.8 mg/dL (1.8-2.4); SGOT/AST 15 U/L (15-37); SGPT/ALT 9 U/L (12-78)
[2017-07-18 09:38] LABS: GLUCOSE,RANDOM 50 mg/dL (74-106)
[2017-07-18] MEDS: VALSARTAN 40 MG TABLET (FP) PO SCH (10:44)
[2017-07-18] MEDS: PANTOPRAZOLE 20 MG TABLET (FP) PO SCH (10:44)
[2017-07-18] MEDS: APIXABAN 5 MG TABLET PO SCH ×2 (10:44→21:30)
[2017-07-18] MEDS: metoPROLOL SUCCINATE 25 MG TAB.SR.24H (FP) PO SCH (10:44)
[2017-07-18] MEDS: POLYETHYLENE GLYCOL 3350 119 GM BTL PO SCH ×2 (10:45)
[2017-07-18] MEDS: CEFTRIAXONE IN IS-OSM DEXTROSE 2 GM/50 ML BAG IVPB SCH (10:45)
--- NOTE | 2017-07-18 13:44 | PN ---
Progress Note, Physician History of Present Illness: Awake, alert More comfortable appearing C/O chronic leg pain No c/o chest pain/ dyspnea Occasional cough Whitish sputum Temps down Afebrile - Current Medication List Current Medications: Active Medications Acetaminophen (Tylenol -) 650 mg PO Q6H PRN PRN Reason: PAIN LEVEL 1-5 Last Admin: 07/17/17 05:22 Dose: 650 mg Albuterol/Ipratropium (Duoneb -) 1 amp NEB RQID [facility] Last Admin: 07/18/17 11:03 Dose: 1 amp Apixaban (Eliquis -) 5 mg PO BID [facility] Last Admin: 07/18/17 10:44 Dose: 5 mg Docusate Sodium (Colace -) 300 mg PO HS [facility] Last Admin: 07/17/17 21:31 Dose: 300 mg Furosemide (Lasix Injection -) 40 mg IVPUSH BID@0600,1400 [facility] Last Admin: 07/18/17 06:24 Dose: 40 mg CEFTRIAXONE IN IS-OSM DEXTROSE (Ceftriaxone 2 Gm-D5w Bag) 2 gm in 50 mls @ 100 mls/hr IVPB DAILY [facility] Last Admin: 07/18/17 10:45 Dose: 100 mls/hr Insulin Aspart (Novolog Vial Sliding Scale -) 1 vial SQ ACHS RYANN PRN Reason: Protocol Last Admin: 07/18/17 06:24 Dose: Not Given Insulin Detemir (Levemir Vial) 26 units SQ BID@0700,2200 [facility] Last Admin: 07/18/17 06:24 Dose: Not Given Metoprolol Succinate (Toprol Xl -) 25 mg PO DAILY [facility] Last Admin: 07/18/17 10:44 Dose: 25 mg Pantoprazole Sodium (Protonix -) 20 mg PO DAILY [facility] Last Admin: 07/18/17 10:44 Dose: 20 mg Polyethylene Glycol (Miralax (For Daily Use) -) 17 gm PO DAILY [facility] Last Admin: 07/18/17 10:45 Dose: 17 gm Valsartan (Diovan -) 40 mg PO DAILY [facility] Last Admin: 07/18/17 10:44 Dose: 40 mg - Objective Vital Signs: Vital Signs Temperature 98.9 F 07/18/17 09:00 Pulse Rate 78 07/18/17 09:00 Respiratory Rate 18 07/18/17 09:00 Blood Pressure 108/79 07/18/17 09:00 O2 Sat by Pulse Oximetry (%) 100 07/18/17 09:00 Constitutional: Yes: No Distress, Obese Cardiovascular: Yes: Regular Rate and Rhythm, S1, S2 Respiratory: Yes: Diminished, Other (no rhonchi/ rales/ wheeze today) Gastrointestinal: Yes: Normal Bowel Sounds, Soft. No: Tenderness Edema: Yes Labs: CBC, BMP 07/18/17 07:05 07/18/17 07:05 Assessment/Plan Acute exacerbation COPD Possible pneumonia ? Leukopenia secondary to viral infection Await c/s Continue empiric ceftriaxone Bronchodilators/ supplemental O2
[2017-07-18] MEDS ORDERED: FUROSEMIDE 40 MG/4 ML INJECTABLE VIAL ONE (17:06)
[2017-07-18] MEDS: DOCUSATE SODIUM 100 MG CAPSULE (FP) PO SCH (21:30)
[2017-07-19] MEDS: INSULIN DETEMIR 100 UNITS/ML MDV SQ SCH ×2 (06:02→22:22)
[2017-07-19] MEDS: INSULIN SLIDING SCALE (NOVOLOG) 1 VIAL SQ SCH ×4 (06:02→22:21)
[2017-07-19] MEDS ORDERED: INSULIN (NOVOLOG) ASPART 100 UNITS/ML 10ML VIAL ONE ×3 (06:15→22:05)
[2017-07-19] MEDS: ALBUTEROL SO4 2.5/IPRATROPIUM 0.5 INH SOL 3 ML VIAL.NEB. NEB SCH ×4 (08:33→20:15)
[2017-07-19] MEDS: CEFTRIAXONE IN IS-OSM DEXTROSE 2 GM/50 ML BAG IVPB SCH (09:17)
[2017-07-19] MEDS: FUROSEMIDE 40 MG/4 ML INJECTABLE VIAL IVPUSH SCH (09:17)
[2017-07-19] MEDS: metoPROLOL SUCCINATE 25 MG TAB.SR.24H (FP) PO SCH (09:17)
[2017-07-19] MEDS: PANTOPRAZOLE 20 MG TABLET (FP) PO SCH (09:17)
[2017-07-19] MEDS: VALSARTAN 40 MG TABLET (FP) PO SCH (09:17)
[2017-07-19] MEDS: APIXABAN 5 MG TABLET PO SCH ×2 (09:17→22:20)
[2017-07-19] MEDS: POLYETHYLENE GLYCOL 3350 119 GM BTL PO SCH (09:22)
--- NOTE | 2017-07-19 19:01 | PN ---
Physical Exam: SUBJECTIVE: Patient seen and examined at bedside. present. Feels slightly more SOB today than yesterday. OBJECTIVE: Vital Signs Period Temp Pulse Resp BP Sys/Gardner Pulse Ox Last 24 Hr 98.0 F-99.0 F 70-76 18-20 101-114/41-56 94-97 GENERAL: Awake, alert, and fully oriented, in no acute distress. LUNGS: Scattered end-expiratory wheezing HEART: Regular rate and rhythm, normal S1 and S2 +murmur ABDOMEN: Soft, nontender, not distended, normoactive bowel sounds, no guarding, no rebound, no masses. MUSCULOSKELETAL: Normal range of motion at all joints. No bony deformities or tenderness. No CVA tenderness. UPPER EXTREMITIES: 2+ pulses, warm, well-perfused. No cyanosis. No clubbing. No peripheral edema. LOWER EXTREMITIES: 2+ pulses, warm, well-perfused. No calf tenderness. Bilateral edema almost completely resolved; erythema resolved NEUROLOGICAL: Cranial nerves II-XII intact. Normal speech. CBCD WBC 3.8 K/mm3 (4.0-10.0) L 07/18/17 07:05 RBC 4.90 M/mm3 (3.60-5.2) 07/18/17 07:05 Hgb 9.9 GM/dL (10.7-15.3) L 07/18/17 07:05 Hct 32.6 % (32.4-45.2) 07/18/17 07:05 MCV 66.7 fl (80-96) L 07/18/17 07:05 MCHC 30.4 g/dl (32.0-36.0) L 07/18/17 07:05 RDW 18.3 % (11.6-15.6) H 07/18/17 07:05 Plt Count 245 K/MM3 (134-434) 07/18/17 07:05 MPV 8.2 fl (7.5-11.1) 07/18/17 07:05 CMP Sodium 141 mmol/L (136-145) 07/18/17 07:05 Potassium 4.3 mmol/L (3.5-5.1) 07/18/17 07:05 Chloride 94 mmol/L (98-107) L 07/18/17 07:05 Carbon Dioxide 43 mmol/L (21-32) H 07/18/17 07:05 Anion Gap 4 (8-16) L 07/18/17 07:05 BUN 16 mg/dL (7-18) 07/18/17 07:05 Creatinine 0.7 mg/dL (0.55-1.02) 07/18/17 07:05 Creat Clearance w eGFR > 60 (>60) 07/18/17 07:05 Calcium 8.1 mg/dL (8.5-10.1) L 07/18/17 07:05 Total Bilirubin 0.9 mg/dL (0.2-1.0) D 07/18/17 07:05 AST 15 U/L (15-37) 07/18/17 07:05 ALT 9 U/L (12-78) L 07/18/17 07:05 Alkaline Phosphatase 57 U/L (45-117) 07/18/17 07:05 Total Protein 6.0 g/dl (6.4-8.2) L 07/18/17 07:05 Albumin 2.8 g/dl (3.4-5.0) L 07/18/17 07:05 Active Medications Generic Name Dose Route Start Last Admin Trade Name Freq PRN Reason Stop Dose Admin Acetaminophen 650 mg 07/16/17 11:20 07/17/17 05:22 Tylenol - PO 650 mg Q6H PRN Administration PAIN LEVEL 1-5 Albuterol/Ipratropium 1 amp 07/15/17 20:00 07/19/17 16:38 Duoneb - NEB 1 amp RQID RYANN Administration Apixaban 5 mg 07/15/17 22:00 07/19/17 09:17 Eliquis - PO 5 mg BID RYANN Administration Docusate Sodium 300 mg 07/15/17 22:00 07/18/17 21:30 Colace - PO 300 mg HS RYANN Administration Furosemide 40 mg 07/19/17 10:00 07/19/17 09:17 Lasix Injection - IVPUSH 40 mg DAILY RYANN Administration CEFTRIAXONE IN IS-OSM DEXTROSE 2 gm in 50 mls @ 100 mls/hr 07/17/17 16:15 09:17 Ceftriaxone 2 Gm-D5w Bag IVPB 100 mls/hr DAILY RYANN Administration Insulin Aspart 1 vial 07/16/17 23:30 07/19/17 17:20 Novolog Vial Sliding Scale - SQ 4 units ACHS RYANN Administration Protocol Insulin Detemir 26 units 07/15/17 22:00 07/19/17 06:02 Levemir Vial SQ Not Given BID@0700,2200 RYANN Metoprolol Succinate 25 mg 07/16/17 10:00 07/19/17 09:17 Toprol Xl - PO 25 mg DAILY RYANN Administration Pantoprazole Sodium 20 mg 07/16/17 10:00 07/19/17 09:17 Protonix - PO 20 mg DAILY RYANN Administration Polyethylene Glycol 17 gm 07/16/17 10:00 07/19/17 09:22 Miralax (For Daily Use) - PO 17 gm DAILY RYANN Administration Valsartan 40 mg 07/16/17 10:00 07/19/17 09:17 Diovan - PO 40 mg DAILY RYANN Administration ASSESSMENT/PLAN 82 year-old female with a PMH significant for HTN, HLD, CAD s/p [place] s/p stents x 2 (2013), systolic and diastolic heart failure, COPD on home O2 (intubations x 3 ), IDDM, and arthritis. Admitted for acute hypercapneic and hypoxic respiratory failure, and acute on chronic systolic and diastolic heart failure systolic. Acute on chronic hypercapnic and hypoxic respiratory failure --satting 95% on 6L COPD --duonebs Acute on chronic systolic and diastolic heart failure Moderate aortic stenosis --05/19/17 Echo: LV function mildly reduced; severe apical wall hypokinesis; apical septal wall severe hypokineses; apical lateral wall moderate hypokinesis ; moderate lateral wall hypokineses; moderate MR; mild to moderate TR; pHTN; moderate 1.1cm2 --BNP 9931 (was 18,353 on 05/28) --weight up 0.3kg; continue Lasix IV daily; renal function is stable Community acquired pneumonia --afebrile, no leukocytosis --continue ceftriaxone day #3 --ID following --repeat CXR in am Hypertension --BP stable --continue Toprol XL, Diovan Hyperlipidemia --continue Lipitor Coronary artery disease s/p [place] s/p stents --10/2013: rotational atherectomy and YURIY PCI of mLAD and diag; residual prox LCx 90-95% calcific; 30-50% LM disease --stable --not on ASA or Plavix IDDM --Levemir BID --Novolog sliding scale GERD --Protonix Hypothyroidism --TSH low 0.03 --free T3 wnl, free T4 wnl Dysuria --UA & UC negative FEN Fluids: PO intake adequate Electrolytes: replete as indicated Nutrition: diabetic low sodium DVT prophylaxis: on Eliquis Physical therapy Dispo: continues to require inpatient care. Plan to discharge tomorrow. Full Code. Visit type - Emergency Visit Emergency Visit: Yes ED Registration Date: 07/15/17 Care time: The patient presented to the Emergency Department on the above date and was hospitalized for further evaluation of their emergent condition. - New Patient This patient is new to me today: No - Critical Care Critical Care patient: No
[2017-07-19] MEDS: DOCUSATE SODIUM 100 MG CAPSULE (FP) PO SCH (22:20)
[2017-07-20] MEDS: INSULIN DETEMIR 100 UNITS/ML MDV SQ SCH ×2 (06:33→06:39)
[2017-07-20] MEDS: INSULIN SLIDING SCALE (NOVOLOG) 1 VIAL SQ SCH ×3 (06:34→16:51)
[2017-07-20 07:21] LABS: BASO % 0.8 % (0-2.0); EOS % 5.2 % (0-4.5); HEMATOCRIT 33.4 % (32.4-45.2); HEMOGLOBIN 10.3 GM/dL (10.7-15.3); LYMPH % 24.3 % (8-40); MCH 20.7 pg (25.7-33.7); MCHC 30.9 g/dl (32.0-36.0); MEAN CELL VOLUME 66.8 fl (80-96); MEAN PLT VOLUME 8.5 fl (7.5-11.1); MONO % 7.9 % (3.8-10.2); NEUT % 61.8 % (42.8-82.8); PLATELET COUNT 196 K/MM3 (134-434); RDW 18.3 % (11.6-15.6)
--- NOTE | 2017-07-20 08:15 | DS ---
Physical Exam: SUBJECTIVE: Patient seen and examined OBJECTIVE: Vital Signs Period Temp Pulse Resp BP Sys/Gardner Pulse Ox Last 24 Hr 98.0 F-99.0 F 70-79 18-20 101-117/40-47 94-96 PHYSICAL EXAM GENERAL: Awake, alert, and fully oriented, in no acute distress. LUNGS: Scattered end-expiratory wheezing HEART: Regular rate and rhythm, normal S1 and S2 +murmur ABDOMEN: Soft, nontender, not distended, normoactive bowel sounds, no guarding, no rebound, no masses. MUSCULOSKELETAL: Normal range of motion at all joints. No bony deformities or tenderness. No CVA tenderness. UPPER EXTREMITIES: 2+ pulses, warm, well-perfused. No cyanosis. No clubbing. No peripheral edema. LOWER EXTREMITIES: 2+ pulses, warm, well-perfused. No calf tenderness. Bilateral edema almost completely resolved; erythema resolved NEUROLOGICAL: Cranial nerves II-XII intact. Normal speech. LABS Laboratory Results - last 24 hr 07/19/17 07/19/17 07/19/17 11:09 16:17 22:20 WBC RBC Hgb Hct MCV MCH MCHC RDW Plt Count MPV Neutrophils % Lymphocytes % Monocytes % Eosinophils % Basophils % POC Glucometer 177 210 225 07/20/17 07/20/17 07/20/17 04:51 06:00 06:30 WBC 4.0 RBC 5.00 Hgb 10.3 L Hct 33.4 MCV 66.8 L MCH 20.7 L MCHC 30.9 L RDW 18.3 H Plt Count 196 MPV 8.5 Neutrophils % 61.8 Lymphocytes % 24.3 Monocytes % 7.9 Eosinophils % 5.2 H Basophils % 0.8 POC Glucometer 188 154 HOSPITAL COURSE: Date of Admission:07/15/17 Date of Discharge: 07/20/17 Pre hospital course 82 year-old female with a PMH significant for HTN, HLD, CAD s/p [place] s/p stents x 2 (2013), systolic heart failure, COPD on home O2 (intubations x 3), IDDM, and hypothyroidism. Patient presented to the ED with a complaints of acute worsening of her chronic SOB. worsening bilateral lower extremity edema, and orthopnea. Seen by [facility] earlier in day and her O2 sat was reportedly 68%. [facility] actived EMS. Patient chronic cough is at baseline. She denies fever, sweats, chills. She complains of dysuria. She denies chest pain, palpitatons, diaphoresis. Patient was hospitalized 05/28-06/10/17 for similar reasons plus influenza. ER course was notable for: (1) Lasix IV 40mg x 1 (2) BiPAP - 98% on 40% FiO2 (3) Ceftriaxone x 1 Acute on chronic hypercapnic and hypoxic respiratory failure --initially on BiPAP, improved with diuresis --baseline requirement 4-5L --has home O2 setup COPD --duonebs PRN Acute on chronic systolic and diastolic heart failure Moderate aortic stenosis --05/19/17 Echo: LV function mildly reduced; severe apical wall hypokinesis; apical septal wall severe hypokineses; apical lateral wall moderate hypokinesis ; moderate lateral wall hypokineses; moderate MR; mild to moderate TR; pHTN; moderate 1.1cm2 --diuresed 3kg with IV Lasix --discharge on Lasix 40mg daily Community acquired pneumonia --afebrile, no leukocytosis --treated with ceftriaxone x 4 days; discharge on cefuroxime x 3 days Hypertension --BP stable --continued Toprol XL, Diovan Hyperlipidemia --continued Lipitor Coronary artery disease s/p [place] s/p stents --10/2013: rotational atherectomy and YURIY PCI of mLAD and diag; residual prox LCx 90-95% calcific; 30-50% LM disease --stable --not on ASA or Plavix IDDM --Levemir BID --Novolog sliding scale GERD --Protonix Hypothyroidism, subclinical --TSH low 0.03 --free T3 wnl, free T4 wnl Dysuria --UA & UC negative Minutes to complete discharge: 35 Discharge Summary Reason For Visit: ACUTE ON CHRONIC DIASTOLIC CONGESTIVE HEART FAILUR Current Active Problems CHF exacerbation (Acute) Condition: Improved - Instructions Diet, Activity, Other Instructions: Three prescriptions have been sent to your pharmacy. 1. Cefuroxime: this is an antibiotic. Finish all the medication. 2. Lasix: this is a water-pill. It is a higher dose than you were taking before. Take as directed. 3. Duoneb solution: this is a for your nebulizer. Take as directed. It is very important you avoid added salt in your diet. Avoid packaged and canned foods as they can often contain large amounts of salt. Return to the emergency department for any new or worsening symptoms. Disposition: HOME - Home Medications Comprehensive Discharge Medication List: Ambulatory Orders Insulin Lispro [Humalog] 0 unit SQ TIDCM PRN 03/02/14 Metoprolol Succinate [Toprol XL -] 25 mg PO DAILY #30 tab.sr.24h 03/11/14 Pantoprazole Sodium [Protonix -] 20 mg PO DAILY #30 tablet.ec 03/11/14 Apixaban [Eliquis -] 5 mg PO BID #60 tablet 06/09/17 Furosemide [Lasix -] 20 mg PO DAILY #30 tablet 06/09/17 Valsartan [Diovan] 40 mg PO DAILY #30 tablet 06/09/17 Insulin (Levemir) [Levemir Vial] 15 unit SQ HS 07/16/17 This patient is new to me today: No Emergency Visit: Yes ED Registration Date: 07/15/17 Care time: The patient presented to the Emergency Department on the above date and was hospitalized for further evaluation of their emergent condition. Critical Care patient: No - Discharge Referral Referred to [facility] Med [facility] No
[2017-07-20] MEDS: ALBUTEROL SO4 2.5/IPRATROPIUM 0.5 INH SOL 3 ML VIAL.NEB. NEB SCH ×3 (08:40→16:03)
[2017-07-20] MEDS: metoPROLOL SUCCINATE 25 MG TAB.SR.24H (FP) PO SCH (10:22)
[2017-07-20] MEDS: FUROSEMIDE 40 MG/4 ML INJECTABLE VIAL IVPUSH SCH (10:22)
[2017-07-20] MEDS: PANTOPRAZOLE 20 MG TABLET (FP) PO SCH (10:22)
[2017-07-20] MEDS: VALSARTAN 40 MG TABLET (FP) PO SCH (10:22)
[2017-07-20] MEDS: CEFTRIAXONE IN IS-OSM DEXTROSE 2 GM/50 ML BAG IVPB SCH (10:22)
[2017-07-20] MEDS: APIXABAN 5 MG TABLET PO SCH (10:22)
[2017-07-20] MEDS: POLYETHYLENE GLYCOL 3350 119 GM BTL PO SCH (10:31)
[2017-07-20 11:11] LABS: CHLORIDE 95 mmol/L (98-107); POTASSIUM 4.7 mmol/L (3.5-5.1); SODIUM 138 mmol/L (136-145)
[2017-07-20 12:01] LABS: ALBUMIN 2.9 g/dl (3.4-5.0); ALK PHOS 59 U/L (45-117); ANION GAP 4 (8-16); BILIRUBIN,TOTAL 0.7 mg/dL (0.2-1.0); BLOOD UREA NITROGEN 24 mg/dL (7-18); CALCIUM 8.7 mg/dL (8.5-10.1); CO2 39 mmol/L (21-32); CREATININE 0.8 mg/dL (0.55-1.02); GLUCOSE,RANDOM 137 mg/dL (74-106); MAGNESIUM 2.2 mg/dL (1.8-2.4); SGOT/AST 14 U/L (15-37); SGPT/ALT 8 U/L (12-78); TOT PROT 6.4 g/dl (6.4-8.2)
[2017-07-20 18:46] VITALS: BP 116/49; PULSE 69; TEMP 98.8
== END 2017-07-20 18:54 | disposition home or self-care (01) | DRG 291 ==
LOC: JER 11:35 → JERBED 17:14 → J4S 07-16 14:31
PROVIDERS: ADMIT Internal Medicine; ATTEND Registered Nurse
PROC: 5A09457 Assistance with Respiratory Ventilation, 24-96 Consecutive Hours, Continuous Positive Airway Pressure (ICD-10-PCS; principal; 2017-07-15)
DX: I11.0 Hypertensive heart disease with heart failure (principal); J96.01 Acute respiratory failure with hypoxia; J96.02 Acute respiratory failure with hypercapnia; J44.1 Chronic obstructive pulmonary disease with (acute) exacerbation; I50.43 Acute on chronic combined systolic (congestive) and diastolic (congestive) heart failure; J44.9 Chronic obstructive pulmonary disease, unspecified; I25.2 Old myocardial infarction; E11.9 Type 2 diabetes mellitus without complications; I25.10 Atherosclerotic heart disease of native coronary artery without angina pectoris; E03.9 Hypothyroidism, unspecified; E78.5 Hyperlipidemia, unspecified; K21.9 Gastro-esophageal reflux disease without esophagitis; M19.90 Unspecified osteoarthritis, unspecified site; D72.819 Decreased white blood cell count, unspecified; I35.0 Nonrheumatic aortic (valve) stenosis; I27.20 Pulmonary hypertension, unspecified; R30.0 Dysuria; Z88.0 Allergy status to penicillin; Z99.81 Dependence on supplemental oxygen; Z96.651 Presence of right artificial knee joint; Z95.5 Presence of coronary angioplasty implant and graft
CPT/HCPCS: 36415; 36600; 71045-TC-FY; 80053; 81003; 82375; 82550; 82803; 82962; 83050; 83735; 83880; 84100; 84439; 84443; 84481; 84484; 85025; 87040; 87086; 87804; 87899; 93005; 93010; 94640; 94660; 97116-GP; 97161-GP; 99285-25

== ENCOUNTER 2017-10-27 15:58 | Inpatient (IN) | payer OTHER ==
--- NOTE | 2017-10-27 16:28 | PDOC ---
Rapid Medical Evaluation Time Seen by Provider: 10/27/17 16:23 Medical Evaluation: Allergies Allergy/AdvReac Type Severity Reaction Status Date / Time Penicillins Allergy Verified 07/15/17 12:02 Apple juice Allergy Uncoded 07/15/17 12:02 10/27/17 16:23 I have performed a brief in-person evaluation of this patient. The patient presents with a chief complaint of: hypoxia in pmd's office today. H /o COPD on 2 L O2, usually sats low 90s on RA per daughter, oxygen was 72% in pmd's office. Pt c/o sob, no CP, acute cough, f/c or edema. Pertinent physical exam findings:O2 85% on RA at triage w/ clear chest/lungs, trace edema b/l (baseline per family) I have ordered the following:duoneb, ekg, cxr, labs The patient will proceed to the ED for further evaluation. Discharge Disposition - Diagnosis Hypoxia - Referrals - Patient Instructions - Post Discharge Activity
[2017-10-27] MEDS ORDERED: ALBUTEROL SO4 2.5/IPRATROPIUM 0.5 INH SOL 3 ML VIAL.NEB. NEB ONE (16:50)
--- NOTE | 2017-10-27 17:01 | PDOC ---
History of Present Illness - General Chief Complaint: Respiratory Stated Complaint: RESPIRATORY Time Seen by Provider: 10/27/17 16:23 - History of Present Illness Initial Comments: 10/27/17 17:24 The patient is an 82 year old female with a history of DM, HTN, HLD, CAD, COPD, CHF who presents for evaluation of hypoxemia. The patient is accompanied by family who assist in providing the history. They note that the patient has been experiencing worsening SOB over the past week despite her home O2 use of 2L. The patient presented to her primary care provider Dr. Gerber who noted the patient's O2 sat at 80% on RA. They note that the patient's O2 Sat is usually 90% on RA. Dr. Gerber sent that patient to the ER for further evaluation and admission for pulmonary consultation. The patient otherwise denies fevers, chills, chest pain, nausea, vomiting, abdominal pain, or changes with urination or bowel movements. Past History - Past Medical History Allergies/Adverse Reactions: Allergies Allergy/AdvReac Type Severity Reaction Status Date / Time Penicillins Allergy Verified 10/27/17 16:27 Apple juice Allergy Uncoded 10/27/17 16:27 Home Medications: Ambulatory Orders Insulin Lispro [Humalog] 0 unit SQ TIDCM PRN 03/02/14 Metoprolol Succinate [Toprol XL -] 25 mg PO DAILY #30 tab.sr.24h 03/11/14 Apixaban [Eliquis -] 5 mg PO BID #60 tablet 06/09/17 Valsartan [Diovan] 40 mg PO DAILY #30 tablet 06/09/17 Insulin (Levemir) [Levemir Vial] 15 unit SQ HS 07/16/17 Albuterol 2.5/Ipratropium 0.5 [Duoneb -] 1 amp NEB BID #1 box 07/20/17 Cefuroxime Axetil [Ceftin -] 500 mg PO BID #6 tablet 07/20/17 Furosemide [Lasix] 40 mg PO DAILY #30 tablet 07/20/17 Insulin Sliding Scale [Novolog Vial Sliding Scale -] 1 vial SQ ACHS units 07/20 Anemia: No Asthma: No Cancer: No Cardiac Disorders: Yes ([place] with stents) CVA: No COPD: Yes (COPD) CHF: No DVT: No Dementia: No Diabetes: Yes GI Disorders: No Disorders: No HTN: Yes Hypercholesterolemia: No Liver Disease: No Seizures: Yes Thyroid Disease: No - Surgical History Abdominal Surgery: No Appendectomy: No Cardiac Surgery: Yes (cardiac cath with stents) Cholecystectomy: No Lung Surgery: No Neurologic Surgery: No Orthopedic Surgery: No - Family Disease History Family Disease History: Diabetes: Mother - Immunization History Immunization Up to Date: Yes - Suicide/Smoking/Psychosocial Hx Smoking History: Never smoked Have you smoked in the past 12 months: No Hx Alcohol Use: No Drug/Substance Use Hx: No Substance Use Type: None Hx Substance Use Treatment: No Review of Systems - Review of Systems Comments:: 10/27/17 17:29 Constitutional: Fatigue. No fevers, chills, malaise HEENT: No Rhinorrhea, nasal congestion, visual changes Cardiovascular: No chest pain, syncope, palpitations, lightheadedness Respiratory: SOB. No Cough, Hemoptysis, Gastrointestinal: No Abdominal pain, Nausea, Vomiting, Constipation, Diarrhea, Melena Genitourinary: No Dysuria, Frequency, Urgency, Hesitancy, Hematuria, Flank pain Musculoskeletal: No Myalgia, arthralgia Skin: No rashes, itching, bruising, pallor Neurologic: No Headache, Dizziness, Numbness, Weakness, or Tingling Psychiatric: No Hallucinations. No SI or HI *Physical Exam - Vital Signs Last Vital Signs Temp Pulse Resp BP Pulse Ox 98.6 F 72 18 149/61 85 L 10/27/17 16:27 10/27/17 16:27 10/27/17 16:27 10/27/17 16:27 10/27/17 16:27 - Physical Exam Comments: 10/27/17 17:30 General Appearance: Nourished. No Apparent Distress HEENT: EOMI, KINZA. No Pharyngeal Erythema, Tonsillar Exudate, Tonsillar Erythema Neck: No Cervical Lymphadenopathy Respiratory/Chest: Bilateral Crackles noted at the bases bilaterally. No Rhonchi, Wheezing Cardiovascular: Regular Rhythm, Regular Rate. 3/6 Systolic Murmur noted on exam. No Gallops, Rubs Gastrointestinal/Abdominal: Normal Bowel Sounds, Soft. No Guarding, Rebound, Tenderness Musculoskeletal: No CVA Tenderness Extremity: 2+ Pitting Edema in the Lower Extremities bilaterally. Normal Capillary Refill Integumentary: Normal Color, Dry, Warm Neurologic: Fully Oriented, Alert, Normal Mood/Affect, Normal Response, Heart Score/ECG Review #1 ECG reviewed & interpreted by me at: 17:54 (Left [place] Deviation. Left Ventricular Hypertrophy) General ECG Interpretation: Sinus Rhythm, Normal Rate, Normal Intervals, No acute ischemic changes Compared to previous ECG there are: No significant change (07/15/17) ED Treatment Course - LABORATORY CBC & Chemistry Diagram: 10/27/17 16:43 10/27/17 16:43 - Medications Given in the ED: ED Medications Discontinued Medications Generic Name Dose Route Start Last Admin Trade Name Freq PRN Reason Stop Dose Admin Albuterol/Ipratropium 1 amp 10/27/17 16:50 10/27/17 16:52 Duoneb - NEB 10/27/17 16:51 1 amp ONCE ONE Administration Medical Decision Making - Medical Decision Making 10/27/17 17:32 The patient is an 82 year old female with a history of DM, HTN, HLD, CAD, COPD, CHF who presents for evaluation of hypoxemia. Differential includes but is not limited to: ACS, CHF, COPD, Infectious, Metabolic Derangement. Given the patient's history and physical exam, it is possible the patient's symptoms are due to a CHF exacerbation. We will obtain a cbc, cmp, bnp, troponin, ua, chest plain film, ekg to evaluate further for possible etiologies. We will continue to closely monitor and reassess. The patient's O2 saturation improves to 98% on 2L NC. 10/27/17 19:37 CBC, cmp, troponin, ua are unremarkable. BNP is elevated to 6100. Chest plain film demonstrates pulmonary congestion consistent with CHF exacerbation as preliminarily read by ER physician. We will treat the patient with lasix here in the ED. We discussed the case with the admitting team who accepted the patient for admission. We will continue to monitor and reassess while here in the ED. *DC/Admit/Observation/Transfer Diagnosis at time of Disposition: Hypoxia, Acute on chronic diastolic (congestive) heart failure - Discharge Dispostion Condition at time of disposition: Stable Decision to Admit order: Yes - Referrals Referrals: Aleena Fournier MD [Primary Care Provider] - - Patient Instructions - Post Discharge Activity
[2017-10-27 17:19] LABS: URINE APPEARANCE CLOUDY; URINE BILIRUBIN NEGATIVE (<2.0 mg/dL); URINE COLOR YELLOW; URINE GLUCOSE (UA) NEGATIVE (NEGATIVE); URINE KETONE NEGATIVE (NEGATIVE); URINE LEUK ESTERASE TRACE (NEGATIVE); URINE NITRITE NEGATIVE (NEGATIVE)
[2017-10-27 17:23] LABS: ALBUMIN 3.3 g/dl (3.4-5.0); ANION GAP 6 (8-16); BILIRUBIN,TOTAL 1.2 mg/dL (0.2-1.0); BLOOD UREA NITROGEN 25 mg/dL (7-18); CALCIUM 8.7 mg/dL (8.5-10.1); CHLORIDE 98 mmol/L (98-107); CO2 36 mmol/L (21-32); GLUCOSE,RANDOM 248 mg/dL (74-106); POTASSIUM 4.9 mmol/L (3.5-5.1); SGOT/AST 20 U/L (15-37); SGPT/ALT 20 U/L (12-78); SODIUM 140 mmol/L (136-145); TOT PROT 7.2 g/dl (6.4-8.2)
[2017-10-27 17:25] LABS: ALK PHOS 87 U/L (45-117)
[2017-10-27 17:32] LABS: URINE PROTEIN 2+ (NEGATIVE)
[2017-10-27 17:35] LABS: EPI CELLS MODERATE /HPF (FEW); URINE MUCUS RARE
[2017-10-27 17:40] LABS: BASO % 0.4 % (0-2.0); EOS % 3.8 % (0-4.5); HEMATOCRIT 35.2 % (32.4-45.2); HEMOGLOBIN 10.6 GM/dL (10.7-15.3); LYMPH % 19.8 % (8-40); MCH 20.3 pg (25.7-33.7); MCHC 30.1 g/dl (32.0-36.0); MEAN CELL VOLUME 67.6 fl (80-96); MEAN PLT VOLUME 7.8 fl (7.5-11.1); MONO % 8.3 % (3.8-10.2); NEUT % 67.7 % (42.8-82.8); PLATELET COUNT 282 K/MM3 (134-434); RBC 5.21 M/mm3 (3.60-5.2); RDW 17.4 % (11.6-15.6); WHITE BLOOD COUNT 4.6 K/mm3 (4.0-10.0)
--- NOTE | 2017-10-27 17:47 | PDOC ---
Attending Attestation - Physicial Exam PE: 10/27/17 18:05 GENERAL: Well-appearing, well-nourished. No apparent distress. HEENT: Normocephalic, atraumatic. PERRL, EOM intact. No Pharyngeal Erythema, Exudate, or Erythema CARDIOVASCULAR: (+) 3/6 Systolic Murmur noted on exam. Regular rate and rhythm. PULMONARY: (+) Bilateral Crackles noted at the bases bilaterally ABDOMEN: Soft, non-distended, non-tender. EXTREMITIES: (+) 2+ Pitting Edema in the Lower Extremities bilaterally. Normal ROM in all four extremities. No gross deformities. SKIN: Warm, dry. No rash NEUROLOGICAL: No focal neurological deficits. - Medical Decision Making 10/27/17 18:05 Documentation prepared by Ewa lSaughter, acting as product manager medical device for Carley Keita MD <Ewa Slaughter - Last Filed: 10/27/17 18:16> - Resident Resident Name: Fermin Norris - ED Attending Attestation I have performed the following: I have examined & evaluated the patient, The case was reviewed & discussed with the resident, I agree w/resident's findings & plan, Exceptions are as noted - HPI HPI: 10/27/17 17:47 -82 year-old female sent from Dr. Fournier's office for increasing shortness of breath over the last few days -Past medical history significant for CHF and COPD - Medical Decision Making [id number]>6000 pt admitted for further diuresis IMP chf 10/27/17 18:54 <Carley Keita - Last Filed: 10/27/17 18:55>
[2017-10-27] MEDS ORDERED: FUROSEMIDE 40 MG/4 ML INJECTABLE VIAL IVPUSH ONE (18:37)
[2017-10-27] MEDS ORDERED: FUROSEMIDE 40 MG/4 ML INJECTABLE VIAL ONE (18:52)
[2017-10-27 19:05] LABS: ANISOCYTOSIS 2+; PLATELET ESTIMATE ADEQUATE
--- NOTE | 2017-10-27 21:06 | HP ---
CHIEF COMPLAINT: hypoxia PCP: Aleena Fournier HISTORY OF PRESENT ILLNESS: This is an 82 year old female with a significant past medical history of HTN, HLD, CHF, CAD, VT, COPD, DM who presented to the ED from her PCP office for low oxygen saturation in office. Her room air sat was reportedly 80; her usual is around 90. Pt reports SOB with exertion and intermittent brief left sided stabbing chest pain for 5 days. She reports that she ran out of some of her medications approximately 2 weeks ago including her lasix. ER course was notable for: (1) BNP 6155, trop neg (2) CXR with increased vascular congestion (3) given lasix 40mg IVP Recent Travel: pt denies PAST MEDICAL HISTORY: HTN, CAD, CHF, VT 2013, HLD, PAFib, COPD s/p intubation x 3, DM, GERD, hypothyroidism PAST SURGICAL HISTORY: stent x 2, 2013 R TKR cholecystectomy Social History: Smoking: pt denies Alcohol: pt denies Drugs: pt denies Family History: mother and father both in their 70s, h/o DM all her siblings with DM and heart problems 5 children, no medical issues Allergies Penicillins Allergy (Verified 10/27/17 16:27) Apple juice Allergy (Uncoded 10/27/17 16:27) HOME MEDICATIONS: 3 Medication Instructions Recorded Insulin Lispro [Humalog] 0 unit SQ TIDCM PRN 03/02/14 Metoprolol Succinate [Toprol XL -] 25 mg PO DAILY #30 tab.sr.24h 03/11/14 Apixaban [Eliquis -] 5 mg PO BID #60 tablet 06/09/17 Insulin (Levemir) [Levemir Vial] 15 unit SQ HS 07/16/17 Furosemide [Lasix] 40 mg PO DAILY #30 tablet 07/20/17 Levothyroxine 25mcg daily Insulin Sliding Scale [Novolog 1 vial SQ ACHS units 07/20/17 Vial Sliding Scale -] REVIEW OF SYSTEMS CONSTITUTIONAL: Absent: fever, chills, diaphoresis, generalized weakness, malaise, loss of appetite, weight change HEENT: Absent: rhinorrhea, nasal congestion, throat pain, throat swelling, difficulty swallowing, mouth swelling, ear pain, eye pain, visual changes CARDIOVASCULAR: Present: chest pain, peripheral edema Absent: syncope, palpitations, irregular heart rate, lightheadedness RESPIRATORY: Present: cough, shortness of breath, dyspnea with exertion Absent: orthopnea, wheezing, stridor, hemoptysis GASTROINTESTINAL: Absent: abdominal pain, abdominal distension, nausea, vomiting, diarrhea, constipation, melena, hematochezia GENITOURINARY: Absent: dysuria, frequency, urgency, hesitancy, hematuria, flank pain, genital pain MUSCULOSKELETAL: Absent: myalgia, arthralgia, joint swelling, back pain, neck pain SKIN: Absent: rash, itching, pallor HEMATOLOGIC/IMMUNOLOGIC: Absent: easy bleeding, easy bruising, lymphadenopathy, frequent infections ENDOCRINE: Absent: unexplained weight gain, unexplained weight loss, heat intolerance, cold intolerance NEUROLOGIC: Absent: headache, focal weakness or paresthesias, dizziness, unsteady gait, seizure, mental status changes, bladder or bowel incontinence PSYCHIATRIC: Absent: anxiety, depression, suicidal or homicidal ideation, hallucinations. PHYSICAL EXAMINATION Vital Signs - 24 hr 3 10/27/17 10/27/17 10/27/17 16:27 17:55 19:40 Temperature 98.6 F 98.4 F Pulse Rate 72 Pulse Rate [ 82 63 Apical] Respiratory 18 19 Rate Blood Pressure 149/61 Blood Pressure 145/60 [Left Arm] O2 Sat by Pulse 85 L 98 Oximetry (%) GENERAL: Awake, alert, and fully oriented, in no acute distress. HEAD: Normal with no signs of trauma. EYES: Pupils equal, round and reactive to light, extraocular movements intact, sclera anicteric, conjunctiva clear. No lid lag. EARS, NOSE, THROAT: Ears normal, nares patent, oropharynx clear without exudates. Moist mucous membranes. NECK: Normal range of motion, supple without lymphadenopathy, JVD, or masses. LUNGS: Crackles bilateral bases, no wheezing. No accessory muscle use. HEART: Regular rate and rhythm, normal S1 and S2 without murmur, rub or gallop. ABDOMEN: Soft, nontender, not distended, normoactive bowel sounds, no guarding, no rebound, no masses. No hepatomegaly or splenomegaly. MUSCULOSKELETAL: Normal range of motion at all joints. No bony deformities or tenderness. No CVA tenderness. UPPER EXTREMITIES: 2+ pulses, warm, well-perfused. No cyanosis. No clubbing. No peripheral edema. LOWER EXTREMITIES: 2+ pulses, warm, well-perfused. No calf tenderness. 2+ pitting peripheral edema. NEUROLOGICAL: Cranial nerves II-XII intact. Normal speech. PSYCHIATRIC: Cooperative. Good eye contact. Appropriate mood and affect. SKIN: Warm, dry, normal turgor, no rashes or lesions noted, normal capillary refill. Laboratory Results - last 24 hr 3 10/27/17 10/27/17 10/27/17 16:43 16:43 16:43 WBC 4.6 RBC 5.21 H Hgb 10.6 L Hct 35.2 MCV 67.6 L MCH 20.3 L MCHC 30.1 L RDW 17.4 H Plt Count 282 D MPV 7.8 Absolute Neuts (auto) 3.1 Neutrophils % 67.7 Lymphocytes % 19.8 Monocytes % 8.3 Eosinophils % 3.8 Basophils % 0.4 Nucleated RBC % 0 Hypochromia 2+ Platelet Estimate Adequate Platelet Comment No clotting detected Anisocytosis 2+ Microcytosis 2+ Sodium 140 Potassium 4.9 Chloride 98 Carbon Dioxide 36 H Anion Gap 6 L BUN 25 H Creatinine 1.0 Creat Clearance w eGFR 53.21 Random Glucose 248 H Calcium 8.7 Total Bilirubin 1.2 H AST 20 ALT 20 Alkaline Phosphatase 87 Creatine Kinase 73 Troponin I < 0.02 B-Natriuretic Peptide 6155.05 H Total Protein 7.2 Albumin 3.3 L Urine Color Urine Appearance Urine pH Ur Specific [place] Urine Protein Urine Glucose (UA) Urine Ketones Urine Blood Urine Nitrite Urine Bilirubin Urine Urobilinogen Ur Leukocyte Esterase Urine WBC (Auto) Urine RBC (Auto) Ur Epithelial Cells Urine Mucus 3 Urine Color Yellow 10/27/17 17:04 Urine Appearance Cloudy 10/27/17 17:04 Urine pH 5.0 (5.0-8.0) 10/27/17 17:04 Ur Specific [place] 1.019 (1.001-1.035) 10/27/17 17:04 Urine Protein 2+ (NEGATIVE) H 10/27/17 17:04 Urine Glucose (UA) Negative (NEGATIVE) 10/27/17 17:04 Urine Ketones Negative (NEGATIVE) 10/27/17 17:04 Urine Blood Negative (NEGATIVE) 10/27/17 17:04 Urine Nitrite Negative (NEGATIVE) 10/27/17 17:04 Urine Bilirubin Negative (<2.0 mg/dL) 10/27/17 17:04 Ur Leukocyte Esterase Trace (NEGATIVE) 10/27/17 17:04 Urine WBC (Auto) 4 Urine RBC (Auto) 4 Ur Epithelial Cells Moderate /HPF (FEW) 10/27/17 17:04 Urine Mucus Rare 10/27/17 17:04 ECG Normal sinus rhythm vent rate 66, QTC 469 left axis deviation LVH with QRS widening and repolarization abnormality Inferior and anterior infarcts, age undetermined No acute ABIGAIL/STD Radiology Reports CXR - portable Impression: Mild bibasal atelectatic changes and probable infiltrates again seen with small right and probable minimal left pleural effusion. Continued follow-up is needed. Reported By: Vickie Jennings MD 10/27/171930 ASSESSMENT/PLAN: 82yF with PMH HTN, CAD, CHF, VT 2014, HLD, PAFib, COPD s/p intubation x 3, DM, GERD, hypothyroidism presented to the ED from her PCP office for low oxygen saturation. CHF exacerbation- acute on chronic diastolic - likely due to medication nonadherence - lasix 40mg IVP x 1 in ED, cont daily - consider cardiology consult, has seen Kirill in past while inpatient - pt states she is no longer taking lisinopril, but seems unclear as to exact meds she is on. Verify with PCP office in am Chest pain - trend trops, doubtful of acute ischemic event given intermittent nature of pain - monitor on tele HTN/CAD -cont home toprol paroxysmal afib - cont home eliquis, rate controlled with home toprol COPD - does not appear to be in acute exac at present. - will order duonebs PRN hypothyroid - TSH ordered for am - cont home synthroid DVT PPX - cont home eliquis FEN - po fluids - BMP in am - Low sodium/diabetic diet as tolerated Dispo: Pt admitted for further observation. Visit type - Emergency Visit Emergency Visit: Yes ED Registration Date: 10/27/17 Care time: The patient presented to the Emergency Department on the above date and was hospitalized for further evaluation of their emergent condition. - New Patient This patient is new to me today: Yes Date on this admission: 10/27/17 - Critical Care Critical Care patient: No Hospitalist Screening - Colonoscopy Questionnaire Colonoscopy Questionnaire: Colonoscopy Questionnaire - Patient: 50 - 75 years old and never had a screening colonoscopy: No History of colon or rectal polyps, or CA: No History of IBD, Crohn's disease or UC: No History of abdominal radiation therapy as a child: No - Relative: 1 with colon or rectal CA, or polyps at age 60 or younger: No Colon or rectal CA diagnosed at age 45 or younger: No Multiple relatives with colon or rectal CA: No - Outcome: Screening Result: Negative Screen
[2017-10-27] MEDS ORDERED: INSULIN (LEVEMIR) 100 UNITS/ML UNITS SQ ONE (22:08)
[2017-10-27] MEDS ORDERED: INSULIN (NOVOLOG) ASPART 100 UNITS/ML 10ML VIAL ONE (22:08)
[2017-10-27] MEDS: INSULIN (LEVEMIR) 100 UNITS/ML UNITS SQ SCH (22:10)
[2017-10-27] MEDS: INSULIN SLIDING SCALE (NOVOLOG) 1 VIAL SQ SCH (22:10)
[2017-10-27] MEDS: APIXABAN 5 MG TABLET PO SCH (23:24)
[2017-10-28] MEDS: INSULIN SLIDING SCALE (NOVOLOG) 1 VIAL SQ SCH ×4 (06:02→21:34)
[2017-10-28 06:34] LABS: BASO % 0.7 % (0-2.0); EOS % 4.4 % (0-4.5); HEMATOCRIT 35.2 % (32.4-45.2); HEMOGLOBIN 10.8 GM/dL (10.7-15.3); LYMPH % 21.8 % (8-40); MCH 20.8 pg (25.7-33.7); MCHC 30.8 g/dl (32.0-36.0); MEAN CELL VOLUME 67.6 fl (80-96); MEAN PLT VOLUME 7.8 fl (7.5-11.1); MONO % 9.6 % (3.8-10.2); NEUT % 63.5 % (42.8-82.8); PLATELET COUNT 251 K/MM3 (134-434); RDW 17.1 % (11.6-15.6); WHITE BLOOD COUNT 4.7 K/mm3 (4.0-10.0)
[2017-10-28 07:00] LABS: CHLORIDE 98 mmol/L (98-107); POTASSIUM 4.7 mmol/L (3.5-5.1); SODIUM 142 mmol/L (136-145)
[2017-10-28 07:11] LABS: ANION GAP 4 (8-16); BLOOD UREA NITROGEN 25 mg/dL (7-18); CALCIUM 8.5 mg/dL (8.5-10.1); CO2 40 mmol/L (21-32); CREATININE 0.9 mg/dL (0.55-1.02); GLUCOSE,RANDOM 66 mg/dL (74-106); MAGNESIUM 2.1 mg/dL (1.8-2.4); PHOSPHOROUS 5.5 mg/dL (2.5-4.9)
[2017-10-28] MEDS: metoPROLOL SUCCINATE 25 MG TAB.SR.24H (FP) PO SCH (11:07)
[2017-10-28] MEDS: APIXABAN 5 MG TABLET PO SCH ×2 (11:07→21:34)
[2017-10-28] MEDS: FUROSEMIDE 40 MG/4 ML INJECTABLE VIAL IVPUSH SCH (11:08)
--- NOTE | 2017-10-28 13:29 | PN ---
Progress Note, Physician Chief Complaint: Ms Jarrett complains of sob. No cp or n/v. - Current Medication List Current Medications: Active Medications Apixaban (Eliquis -) 5 mg PO BID [facility] Last Admin: 10/28/17 11:07 Dose: 5 mg Atorvastatin Calcium (Lipitor -) 40 mg PO HS [facility] Furosemide (Lasix Injection -) 40 mg IVPUSH DAILY [facility] Last Admin: 10/28/17 11:08 Dose: 40 mg Insulin Aspart (Novolog Vial Sliding Scale -) 1 vial SQ [facility]; Protocol Last Admin: 10/28/17 06:02 Dose: Not Given Insulin Detemir (Levemir Vial) 15 units SQ HS [facility] Last Admin: 10/27/17 22:10 Dose: 15 units Levothyroxine Sodium (Synthroid -) 25 mcg PO DAILY [facility] Metoprolol Succinate (Toprol Xl -) 25 mg PO DAILY [facility] Last Admin: 10/28/17 11:07 Dose: 25 mg - Objective Vital Signs: Vital Signs Temperature 36.6 C 10/28/17 10:00 Pulse Rate 76 10/28/17 10:00 Respiratory Rate 20 10/28/17 06:00 Blood Pressure 142/56 10/28/17 10:00 O2 Sat by Pulse Oximetry (%) 97 10/28/17 05:10 Constitutional: Yes: No Distress, Calm, Obese Cardiovascular: Yes: Regular Rate and Rhythm. No: Gallop, Murmur, Rub Respiratory: Yes: Regular, On Nasal O2, Rhonchi. No: CTA Bilaterally, Rales, Wheezes Gastrointestinal: Yes: Normal Bowel Sounds, Soft. No: Distention, Tenderness Extremities: Yes: WNL Edema: Yes Edema: LLE: 2+, RLE: 2+ Labs: CBC, BMP 10/28/17 05:30 10/28/17 05:30 Problem List - Problems (1) Acute on chronic diastolic (congestive) heart failure Assessment/Plan: -admit to telemetry -consult Dr Geller -continue IV lasix -daily weights -monitor for improvement Code(s): I50.33 - ACUTE ON CHRONIC DIASTOLIC (CONGESTIVE) HEART FAILURE (2) Diabetes mellitus Assessment/Plan: -diabetic diet -continue levemir and SSI Code(s): E11.9 - TYPE 2 DIABETES MELLITUS WITHOUT COMPLICATIONS Qualifiers: Diabetes mellitus type: type 2 Diabetes mellitus chcf insulin use: without superintendent [employer] use Diabetes mellitus complication status: without complication Qualified Code(s): E11.9 - Type 2 diabetes mellitus without complications (3) HTN (hypertension) Assessment/Plan: -continue toprol xl and lasix -consider addition of ACEI or ARB if elevates Code(s): I10 - ESSENTIAL (PRIMARY) HYPERTENSION Qualifiers: Hypertension type: essential hypertension Qualified Code(s): I10 - Essential (primary) hypertension (4) Hyperlipidemia Assessment/Plan: -continue statin Code(s): E78.5 - HYPERLIPIDEMIA, UNSPECIFIED Qualifiers: Hyperlipidemia type: pure hypercholesterolemia Qualified Code(s): E78.00 - Pure hypercholesterolemia, unspecified; E78.0 - Pure hypercholesterolemia (5) Atrial fibrillation Assessment/Plan: -seen last hospitalization -cardiology following -started on eliquis -currently sinus rhythm on exam Code(s): I48.91 - UNSPECIFIED ATRIAL FIBRILLATION Qualifiers: Atrial fibrillation type: paroxysmal Qualified Code(s): I48.0 - Paroxysmal atrial fibrillation (6) COPD (chronic obstructive pulmonary disease) Assessment/Plan: -continue oxygen supplementation -monitor, not in exacerbation Code(s): J44.9 - CHRONIC OBSTRUCTIVE PULMONARY DISEASE, UNSPECIFIED (7) CAD (coronary artery disease) Assessment/Plan: -quiescent -continue toprol xl Code(s): I25.10 - ATHSCL HEART DISEASE OF [place] CORONARY ARTERY W/O ANG PCTRS (8) Chronic respiratory failure with hypoxia Assessment/Plan: -continue oxygen support -on oxygen at home [id number] Code(s): J96.11 - CHRONIC RESPIRATORY FAILURE WITH HYPOXIA
--- NOTE | 2017-10-28 15:34 | CON.CARD ---
Cardiology Consult (text) - Consultation Consultation Note: cc: sent from pmd for low 02 sat hpi: 82 yr old lady with known CAD/pci, chf, HTN, HPL, DM, pad, obesity, pafib (dx 05/2017 when admitted for copd) sent from pmd for low 02 sat. Admitted and getting iv lasix for possible chf. Reports few seconds of central cp that has been occurring daily for months. Occurs while sitting, not worse with walking. No rest sob, palps,dizzy, loc, pnd orthopnea. Minimal LE edema. Reports missing her lasix dose past week or so. Sees me for cardio. pmh: per hpi psh: pci social: no tob fam: no premature cad ros: per hpi; no nvd, fever, llanes, vision changes, muscle pains, gib, hematuria dysuria meds: Ambulatory Orders Insulin Lispro [Humalog] 0 unit SQ TIDCM PRN 03/02/14 Metoprolol Succinate [Toprol XL -] 25 mg PO DAILY #30 tab.sr.24h 03/11/14 Apixaban [Eliquis -] 5 mg PO BID #60 tablet 06/09/17 Insulin (Levemir) [Levemir Vial] 15 unit SQ HS 07/16/17 Furosemide [Lasix] 40 mg PO DAILY #30 tablet 07/20/17 Insulin Sliding Scale [Novolog Vial Sliding Scale -] 1 vial SQ ACHS units 07/20 Levothyroxine [Synthroid -] 25 mcg PO DAILY 10/27/17 pe: Vital Signs Period Temp Pulse Resp BP Sys/Gardner Pulse Ox Last 24 Hr 97.5 F-98.6 F 60-82 17-20 115-149/46-73 85-98 nad no jvd rrr s1s2 no mrg cta bl nl eff aaox3 trace le edema bl, no c/c abd nt nd pos bs no jaundice diaphoresis pos dp pt no carotid bruits Laboratory Last Values WBC 4.7 K/mm3 (4.0-10.0) 10/28/17 05:30 RBC 5.20 M/mm3 (3.60-5.2) 10/28/17 05:30 Hgb 10.8 GM/dL (10.7-15.3) 10/28/17 05:30 Hct 35.2 % (32.4-45.2) 10/28/17 05:30 MCV 67.6 fl (80-96) L 10/28/17 05:30 MCH 20.8 pg (25.7-33.7) L 10/28/17 05:30 MCHC 30.8 g/dl (32.0-36.0) L 10/28/17 05:30 RDW 17.1 % (11.6-15.6) H 10/28/17 05:30 Plt Count 251 K/MM3 (134-434) 10/28/17 05:30 MPV 7.8 fl (7.5-11.1) 10/28/17 05:30 Absolute Neuts (auto) 3.0 # 10/28/17 05:30 Neutrophils % 63.5 % (42.8-82.8) 10/28/17 05:30 Lymphocytes % 21.8 % (8-40) 10/28/17 05:30 Monocytes % 9.6 % (3.8-10.2) 10/28/17 05:30 Eosinophils % 4.4 % (0-4.5) 10/28/17 05:30 Basophils % 0.7 % (0-2.0) 10/28/17 05:30 Nucleated RBC % 0 % (0-0) 10/28/17 05:30 Hypochromia 2+ 10/27/17 16:43 Platelet Estimate Adequate 10/27/17 16:43 Platelet Comment No clotting detected 10/27/17 16:43 Anisocytosis 2+ 10/27/17 16:43 Microcytosis 2+ 10/27/17 16:43 Sodium 142 mmol/L (136-145) 10/28/17 05:30 Potassium 4.7 mmol/L (3.5-5.1) 10/28/17 05:30 Chloride 98 mmol/L (98-107) 10/28/17 05:30 Carbon Dioxide 40 mmol/L (21-32) H 10/28/17 05:30 Anion Gap 4 (8-16) L 10/28/17 05:30 BUN 25 mg/dL (7-18) H 10/28/17 05:30 Creatinine 0.9 mg/dL (0.55-1.02) 10/28/17 05:30 Creat Clearance w eGFR > 60 (>60) 10/28/17 05:30 POC Glucometer 149 UNITS (80-120) 10/28/17 06:01 Random Glucose 66 mg/dL (74-106) L 10/28/17 05:30 Calcium 8.5 mg/dL (8.5-10.1) 10/28/17 05:30 Phosphorus 5.5 mg/dL (2.5-4.9) H 10/28/17 05:30 Magnesium 2.1 mg/dL (1.8-2.4) 10/28/17 05:30 Total Bilirubin 1.2 mg/dL (0.2-1.0) H 10/27/17 16:43 AST 20 U/L (15-37) 10/27/17 16:43 ALT 20 U/L (12-78) 10/27/17 16:43 Alkaline Phosphatase 87 U/L (45-117) 10/27/17 16:43 Creatine Kinase 61 IU/L (26-192) 10/28/17 05:30 Troponin I < 0.02 ng/ml (0.00-0.05) 10/28/17 05:30 B-Natriuretic Peptide 6155.05 pg/ml (5-450) H 10/27/17 16:43 Total Protein 7.2 g/dl (6.4-8.2) 10/27/17 16:43 Albumin 3.3 g/dl (3.4-5.0) L 10/27/17 16:43 Urine Color Yellow 10/27/17 17:04 Urine Appearance Cloudy 10/27/17 17:04 Urine pH 5.0 (5.0-8.0) 10/27/17 17:04 Ur Specific [place] 1.019 (1.001-1.035) 10/27/17 17:04 Urine Protein 2+ (NEGATIVE) H 10/27/17 17:04 Urine Glucose (UA) Negative (NEGATIVE) 10/27/17 17:04 Urine Ketones Negative (NEGATIVE) 10/27/17 17:04 Urine Blood Negative (NEGATIVE) 10/27/17 17:04 Urine Nitrite Negative (NEGATIVE) 10/27/17 17:04 Urine Bilirubin Negative (<2.0 mg/dL) 10/27/17 17:04 Urine Urobilinogen 2.0 mg/dL (0.2-1.0) H 10/27/17 17:04 Ur Leukocyte Esterase Trace (NEGATIVE) 10/27/17 17:04 Urine WBC (Auto) 4 /hpf (3-5) 10/27/17 17:04 Urine RBC (Auto) 4 /hpf (0-3) 10/27/17 17:04 Ur Epithelial Cells Moderate /HPF (FEW) 10/27/17 17:04 Urine Mucus Rare 10/27/17 17:04 cxr: small b/l effs ecg: sr, nl intervals, lvh with repol changes Periph cath 07/2014: right SFA [employer] [employer], left BTK disease only Arterial Doppler 06/2014: b/l SFA occlusion, ? right inflow disease Cath/PCI 10/2013: mid LAD and Diag YURIY PCI, residual prox LCX 90-95% calcific and only 30-50% dist LM disease Echo 10/2013 : mildly reduced LVF, apical severe HK, anterior mod HK, mild to mod MR, mild to mod TR, RVSP 50-60 echo 04/2017: mild dec lvef, apical hk, nl rv, mod mr, mild-mod tr, mild as, rvsp 40-50 tele: sr a/p: 82 yr old lady with known CAD/pci, chf, HTN, HPL, DM, pad, obesity, pafib (dx 05/2017 when admitted for copd) sent from pmd for low 02 sat acute diastolic chf vs copd: -here with low o2 sat -bnp up, but chronically elevated and currently lower than recent prior bnps -can continue with trial of iv lasix and see if sxs/o2 improve. if no improvement would consider copd as possible etiology as well -recent echo with stable findings -cont toprol. Unable to tolerate shari/arb due to cough and hyperK. CAD s/p rota YURIY PCI of mid LAD and Diag, residual prox LCX 90-95% calcific: -Has been stable, no anginal sxs. Has noticed some atypical cp symptoms. -No recent ischemic testing so will eval further with nuclear stress test after acute hypoxia issues resolve. Cont bb, statin, ac. HTN: stable, controlled on current meds. HPL: cont statin pafib: Stable. Cont bb, eliquis.
[2017-10-28] MEDS: ATORVASTATIN CA 40 MG TABLET (FP) PO SCH (21:34)
[2017-10-28] MEDS: INSULIN (LEVEMIR) 100 UNITS/ML UNITS SQ SCH (21:34)
[2017-10-29] MEDS ORDERED: FUROSEMIDE 40 MG/4 ML INJECTABLE VIAL IVPUSH ONE (01:15)
[2017-10-29] MEDS ORDERED: ALBUTEROL SO4 2.5/IPRATROPIUM 0.5 INH SOL 3 ML VIAL.NEB. NEB ONE (01:15)
--- NOTE | 2017-10-29 01:15 | HOSP ---
Subjective - Review of Symptoms Events since last encounter: called to see patient for desat into 70s on 4LNC Subjective: pt reports not feeling well, denies CP. reports difficulty breathing but unable to expand when questioned further. Kept saying "I cant" in danish Physical Examination Vital Signs: Vital Signs Temperature 97.9 F 10/28/17 21:00 Pulse Rate 59 L 10/28/17 21:00 Respiratory Rate 18 10/28/17 21:00 Blood Pressure 121/54 10/28/17 21:00 O2 Sat by Pulse Oximetry (%) 97 10/28/17 10:00 Cardiovascular: Yes: Regular Rate and Rhythm, S1, S2 Respiratory: Yes: Diminished, Wheezes (mild expiratory wheezes bases) Gastrointestinal: Yes: Normal Bowel Sounds, Soft, Abdomen, Obese. No: Tenderness Labs: CBC, BMP 10/28/17 05:30 10/28/17 05:30 Hospitalist Encounter Assessment: Respiratory distress with hypoxia - oxygen changed to 40% venti mask with rise to upper 90s/100 - lasix 40mg ivp x 1 now - duoneb x 1 now - solumedrol 125mg now - CXR stat - ABG stat Addendum: ABG Results 3 ABG pH 7.24 (7.35-7.45) L* 10/29/17 01:16 ABG pCO2 at Pt Temp 103.0 mmHg (35-45) H* D 10/29/17 01:16 ABG pO2 at Pt Temp 87.3 mmHg (68-100) 10/29/17 01:16 ABG HCO3 42.2 meq/L (22-26) H* 10/29/17 01:16 ABG O2 Sat (Measured) 95.9 % (90-98.9) 10/29/17 01:16 ABG O2 Content 15.0 % vol (15-22) 10/29/17 01:16 ABG Base Excess 11.4 meq/l (-2-2) H 10/29/17 01:16 A&P Hypercapneic, hypoxic resp failure - start bipap 14/7 FIO2 35, rate 18 - cont solumedrol, duonebs - pulm consult.
[2017-10-29] MEDS ORDERED: methylPREDNISolone NA SUCC 125 MG/2 ML VIAL IVPUSH ONE (01:16)
[2017-10-29 01:44] LABS: ARTERIAL BLD GAS O2 SATURATION 95.9 % (90-98.9); ARTERIAL BLOOD GAS BASE EXCESS 11.4 meq/l (-2-2); ARTERIAL BLOOD GAS PO2 87.3 mmHg (68-100)
[2017-10-29 01:46] LABS: ALLENS TEST POSITIVE
[2017-10-29 01:52] LABS: ARTERIAL BLOOD GAS pH 7.24 (7.35-7.45)
[2017-10-29] MEDS ORDERED: ALBUTEROL SO4 0.083% IH SOL 2.5 MG/3 ML VIAL.NEB. NEB PRN (02:18)
[2017-10-29] MEDS: INSULIN SLIDING SCALE (NOVOLOG) 1 VIAL SQ SCH ×5 (06:17→21:53)
[2017-10-29] MEDS: LEVOTHYROXINE NA 25 MCG TABLET (FP) PO SCH (06:18)
[2017-10-29 06:34] LABS: BASO % 0.2 % (0-2.0); EOS % 0.3 % (0-4.5); HEMOGLOBIN 10.9 GM/dL (10.7-15.3); MCH 20.5 pg (25.7-33.7); MCHC 30.2 g/dl (32.0-36.0); MEAN CELL VOLUME 67.9 fl (80-96); MEAN PLT VOLUME 7.9 fl (7.5-11.1); NEUT % 93.5 % (42.8-82.8); PLATELET COUNT 243 K/MM3 (134-434); RBC 5.31 M/mm3 (3.60-5.2); RDW 17.2 % (11.6-15.6); WHITE BLOOD COUNT 6.1 K/mm3 (4.0-10.0)
[2017-10-29 07:03] LABS: CHLORIDE 91 mmol/L (98-107); SODIUM 140 mmol/L (136-145)
[2017-10-29 07:10] LABS: ANION GAP 9 (8-16); BLOOD UREA NITROGEN 21 mg/dL (7-18); CALCIUM 8.5 mg/dL (8.5-10.1); CO2 40 mmol/L (21-32); CREATININE 0.8 mg/dL (0.55-1.02); GLUCOSE,RANDOM 204 mg/dL (74-106); PHOSPHOROUS 3.5 mg/dL (2.5-4.9)
[2017-10-29] MEDS: ALBUTEROL SO4 2.5/IPRATROPIUM 0.5 INH SOL 3 ML VIAL.NEB. NEB SCH ×4 (08:25→20:48)
--- NOTE | 2017-10-29 08:59 | PN ---
Progress Note, Physician Chief Complaint: sob History of Present Illness: bipap on, cannot communicate clearly - Current Medication List Current Medications: Active Medications Albuterol Sulfate (Ventolin 0.083% Nebulizer Soln -) 1 amp NEB Q4H PRN PRN Reason: SHORT OF BREATH/WHEEZING Albuterol/Ipratropium (Duoneb -) 1 amp NEB RQID [facility] Last Admin: 10/29/17 08:25 Dose: 1 amp Apixaban (Eliquis -) 5 mg PO BID [facility] [place] Last Admin: 10/28/17 21:34 Dose: 5 mg Atorvastatin Calcium (Lipitor -) 40 mg PO HS [facility] [place] Last Admin: 10/28/17 21:34 Dose: 40 mg Furosemide (Lasix Injection -) 40 mg IVPUSH DAILY [facility] Last Admin: 10/28/17 11:08 Dose: 40 mg Insulin Aspart (Novolog Vial Sliding Scale -) 1 vial SQ [facility]; Protocol Last Admin: 10/29/17 06:17 Dose: 3 units Insulin Detemir (Levemir Vial) 15 units SQ [facility] Last Admin: 10/28/17 21:34 Dose: 15 units Levothyroxine Sodium (Synthroid -) 25 mcg PO DAILY@0700 [facility] [place] Last Admin: 10/29/17 06:18 Dose: 25 mcg Methylprednisolone Sodium Succinate (Solu-Medrol -) 60 mg IVPUSH Q6H-IV [facility] Metoprolol Succinate (Toprol Xl -) 25 mg PO DAILY [facility] Last Admin: 10/28/17 11:07 Dose: 25 mg - Objective Vital Signs: Vital Signs Temperature 98.8 F 10/29/17 05:00 Pulse Rate 76 10/29/17 05:00 Respiratory Rate 20 10/29/17 05:00 Blood Pressure 124/57 10/29/17 05:00 O2 Sat by Pulse Oximetry (%) 98 10/29/17 08:24 Constitutional: Yes: No Distress, Calm, Obese Eyes: No: Sclera Icterus HENT: No: Nasal Congestion Cardiovascular: Yes: Regular Rate and Rhythm (decr intensity sounds), S1, S2, Other (PMI non diplaced). No: JVD (tds bipap on, obese neck), Gallop, Murmur Respiratory: Yes: CTA Bilaterally (not deep breaths b/c of coughing). No: Accessory Muscle Use, Rales, Wheezes Gastrointestinal: Yes: Normal Bowel Sounds, Soft. No: Tenderness Musculoskeletal: Yes: Other (No kyphosis) Extremities: No: Cold Edema: No Integumentary: No: Jaundice Neurological: Yes: Alert. No: Seizure Psychiatric: No: Agitated Labs: CBC, BMP 10/29/17 05:30 10/29/17 05:30 Assessment/Plan cxr: diffuse incr markings, bilat effusions ecg: sr, lvh with repol changes LHC/PCI 10/2013: mid LAD and Diag YURIY PCI, residual prox LCX 90-95% calcific and only 30-50% dist LM disease Echo 04/2017: mild dec lvef, apical hk. nl rv. mod mr, mild-mod tr, mild as, rvsp 40-50 Echo 10/2013 : mildly reduced LVF, apical severe HK, anterior mod HK, mild to mod MR, mild to mod TR, RVSP 50-60 tele: NSR a/p: 82 yr old lady with known CAD/pci, chf, HTN, HPL, DM, pad, obesity, pafib (dx 05/2017 when admitted for copd) sent from pmd for low 02 sat acute hypoxic resp failure, acute mixed diastolic/systolic CHF, known copd: -chronic, mild LV hypokinesis -here with low o2 sat (85%) -bnp 6K, below prior range (7K-18K) -CXR with chronic very prominent markings diffusely since 05/15--not significantly changed presently. ? incr in prior bibasilar opacities c/w incr effusions. -troponins negative, no ischemic ecg changes -on lasix 40 po daily at home. being given trial of 40 IV qd here. -last scale wt 216 when here 07/13. no wt recorded here, will obtain. -10/29: renal fxn/lytes stable--continue same lasix 40 iv qd. monitor daily wt and labs trend -recent echo with stable findings vs prior, no stigmata of severe pulm HTN noted on that study -copd tx per pulmonary quality consultant -bipap, supplemental O2 as doing -consider CT chest (to r/o ILDz or other) if pt not improving with diuresis CAD s/p PCI: -pt s/p rota YURIY PCI of mid LAD and Diag 2013, residual prox LCX 90-95% calcific --medically managed -Has been stable, no anginal sxs. -atypical cp symptoms reported here. enzymes neg, no acute isch ecg. -plan nuclear stress test after acute hypoxia issues resolve. Cont bb, statin, ac (no ASA) per prior cardio tx plan HTN: -bp controlled -same meds pafib: -in sinus here. cont toprol -cont eliquis 5 bid for AC PAD: -known occluded R SFA on 2015 periph angiogram, with dz on L below knee -? if any interventions done -routine outpt f/u
[2017-10-29] MEDS: methylPREDNISolone NA SUCC 125 MG/2 ML VIAL IVPUSH SCH ×3 (09:02→21:52)
[2017-10-29] MEDS: FUROSEMIDE 40 MG/4 ML INJECTABLE VIAL IVPUSH SCH (09:03)
[2017-10-29 09:36] LABS: ARTERIAL BLOOD GAS PCO2 88.2 mmHg (35-45); ARTERIAL BLOOD GAS pH 7.31 (7.35-7.45)
[2017-10-29 09:37] LABS: ALLENS TEST POSITIVE; ARTERIAL BLD GAS O2 SATURATION 89.2 % (90-98.9); ARTERIAL BLOOD GAS BASE EXCESS 13.6 meq/l (-2-2); ARTERIAL BLOOD GAS PO2 59.8 mmHg (68-100)
--- NOTE | 2017-10-29 10:29 | PN ---
Progress Note (short form) - Note Progress Note: PULMONARY CONSULTATION DICTATED 10/29/17 IMP ACUTE IN CHRONIC HYPOXEMIC/HYPERCAPNEIC RESPIRATORY FAILURE ACUTE ON CHRONIC CHF PAF ASHD S/P OK ,S/P STENTS COPD O2 DEPENDENT PULMONARY HTN IDDM HTN HLD LIKELY OSAS PLAN LASIX IV NIPPV O2 INHALED BRONCHODILATORS MEDROL TAPER STRICT I+Os DAILY WT F/U ABGS F/U CHEST X-RAYS SLEEP STUDIES OUTPATIENT DR CAAL Problem List - Problems (1) Acute on chronic diastolic (congestive) heart failure Code(s): I50.33 - ACUTE ON CHRONIC DIASTOLIC (CONGESTIVE) HEART FAILURE (2) Atrial fibrillation Code(s): I48.91 - UNSPECIFIED ATRIAL FIBRILLATION Qualifiers: Atrial fibrillation type: paroxysmal Qualified Code(s): I48.0 - Paroxysmal atrial fibrillation (3) CAD (coronary artery disease) Code(s): I25.10 - ATHSCL HEART DISEASE OF [place] CORONARY ARTERY W/O ANG PCTRS (4) COPD (chronic obstructive pulmonary disease) Code(s): J44.9 - CHRONIC OBSTRUCTIVE PULMONARY DISEASE, UNSPECIFIED (5) Chronic respiratory failure with hypoxia Code(s): J96.11 - CHRONIC RESPIRATORY FAILURE WITH HYPOXIA (6) ASHD (arteriosclerotic heart disease) Code(s): I25.10 - ATHSCL HEART DISEASE OF [place] CORONARY ARTERY W/O ANG PCTRS (7) Acute on chronic respiratory failure with hypoxia and hypercapnia Code(s): J96.21 - ACUTE AND CHRONIC RESPIRATORY FAILURE WITH HYPOXIA; J96.22 - ACUTE AND CHRONIC RESPIRATORY FAILURE WITH HYPERCAPNIA (8) CHF exacerbation Code(s): I50.9 - HEART FAILURE, UNSPECIFIED Qualifiers: Heart failure type: unspecified Qualified Code(s): I50.9 - Heart failure, unspecified (9) Diabetes mellitus Code(s): E11.9 - TYPE 2 DIABETES MELLITUS WITHOUT COMPLICATIONS Qualifiers: Diabetes mellitus type: type 2 Diabetes mellitus nursing home insulin use: without manager long term care use Diabetes mellitus complication status: without complication Qualified Code(s): E11.9 - Type 2 diabetes mellitus without complications (10) HTN (hypertension) Code(s): I10 - ESSENTIAL (PRIMARY) HYPERTENSION Qualifiers: Hypertension type: essential hypertension Qualified Code(s): I10 - Essential (primary) hypertension (11) History of coronary artery stent placement Code(s): Z95.5 - PRESENCE OF CORONARY ANGIOPLASTY IMPLANT AND GRAFT (12) Paroxysmal atrial fibrillation with rapid ventricular response Code(s): I48.0 - PAROXYSMAL ATRIAL FIBRILLATION (13) Respiratory distress Code(s): R06.00 - DYSPNEA, UNSPECIFIED
--- NOTE | 2017-10-29 10:45 | CONS ---
DATE OF CONSULTATION: 10/29/2017 REFERRING PHYSICIAN: Elroy Nguyen MD The patient is an 82-year-old female with past medical history of hypertension, ASHD status post VA, status post stents x2, maintained on Plavix; CHF with ejection fraction of 60% with significant apical hypokinesis, pulmonary hypertension, hypertension, hyperlipidemia, COPD maintained on home O2, history of intubations in the past x3, history of insulin-dependent diabetes mellitus, arthritis, who is a nonsmoker, admitted to [facility] on October 27 with increasing shortness of breath and low O2 saturations in PCP's office. Apparently the patient went to her PMD's office. At the time, she was noted to be hypoxemic with O2 saturation of 80%. She also complained of increasing shortness of breath with exertion; intermittent, brief, left-sided stabbing chest pain for 5 days. Apparently she ran out of her medications 2 weeks prior to admission, including her Lasix. She presented to the emergency room with the above. In the ER she was found to be in moderate to severe respiratory distress. She was started on BiPAP. She was administered Lasix, inhaled bronchodilators, and steroids and transferred up to telemetry unit for further management. Patient was noted on arterial blood gases to have severe respiratory acidosis and severe hypercapnia with a PCO2 of 103 on Ventimask, at which time she placed back on BiPAP earlier today. No further history is available at this time. Patient is unable to give adequate history. PAST MEDICAL HISTORY: Again includes hypertension, hyperlipidemia, CHF, ASHD status post stents, status post VA, COPD on home O2, diabetes, history of intubations x3, paroxysmal atrial fibrillation, right total knee replacement, cholecystectomy. REVIEW OF SYSTEMS: Unable to obtain at this time. CURRENT MEDICATIONS: Include Solu-Medrol 60 q.6, Eliquis, albuterol, DuoNeb, Toprol, Lipitor, NovoLog, Levemir, Lasix, and Synthroid. PHYSICAL EXAMINATION: General: The patient is an obese, elderly female, well developed,obese lethargic on BiPAP. Vital Signs: She is currently afebrile. Blood pressure is 120/61. Respiratory rate is 23. O2 saturation is 97% on BiPAP 35%, IPAP of 14 and EPAP of 6 and a rate of 16. HEENT: Normocephalic, atraumatic. Neck: Supple. Heart: Regular, S1, S2. Chest: Bilateral crackles. Abdomen: Soft. Bowel sounds positive. Extremities: Swelling and erythema, right lower extremity. LABORATORY: Initial blood gas, pH of 7.24, PCO2 of 103, a O2 of 87, bicarbonate of 42, and a saturation of 95. That was on 40% Ventimask. Most recent on BiPAP 7.31, PCO2 of 88, a bicarbonate of 42 and a saturation of 89. Chemistries: BUN is 21 , creatinine 0.8. BNP is 6155. Chest x-ray: Cardiomegaly, pulmonary vascular congestion bilaterally. IMPRESSION: Acute on chronic hypoxemic/hypercapneic respiratory failure secondary to: 1. Decompensated congestive heart failure. 2. Arteriosclerotic heart disease status post myocardial infarction, status post stents. 3. Chronic obstructive pulmonary disease exacerbation. 4. Pulmonary hypertension. 5. Insulin-dependent diabetes mellitus. 6. Paroxysmal atrial fibrillation. 7. Pulmonary hypertension. PLAN: IV Lasix, supplemental O2, BiPAP, follow up arterial blood gases, inhaled bronchodilators, steroids. Followup chest x-rays. Monitor I's and O's, daily weights. Continue anticoagulation. HEIKE CAAL M.D. [id number] MTDD
[2017-10-29] MEDS ORDERED: INSULIN (NOVOLOG) ASPART 100 UNITS/ML 10ML VIAL ONE (11:02)
[2017-10-29] MEDS: metoPROLOL SUCCINATE 25 MG TAB.SR.24H (FP) PO SCH (11:52)
[2017-10-29] MEDS: APIXABAN 5 MG TABLET PO SCH ×2 (11:52→21:52)
[2017-10-29 11:59] LABS: ANISOCYTOSIS 3+; MACROCYTOSIS 0; PLATELET ESTIMATE NORMAL; TEAR DROP CELLS 1+
--- NOTE | 2017-10-29 12:11 | PN ---
Progress Note, Physician Chief Complaint: Feels improved still c/o SOB History of Present Illness: year old female with a significant past medical history of HTN, HLD, CHF, CAD d /p stent , VA, COPD, T2DM who presented to the ED from her PCP office for low oxygen saturation in office. Her room air sat was reportedly 80;elevated CO2 and BNP - Current Medication List Current Medications: Active Medications Albuterol Sulfate (Ventolin 0.083% Nebulizer Soln -) 1 amp NEB Q4H PRN PRN Reason: SHORT OF BREATH/WHEEZING Albuterol/Ipratropium (Duoneb -) 1 amp NEB RQID [facility] Last Admin: 10/29/17 08:25 Dose: 1 amp Apixaban (Eliquis -) 5 mg PO BID [facility] Last Admin: 10/29/17 11:52 Dose: 5 mg Atorvastatin Calcium (Lipitor -) 40 mg PO HS [facility] Last Admin: 10/28/17 21:34 Dose: 40 mg Furosemide (Lasix Injection -) 40 mg IVPUSH DAILY [facility] Last Admin: 10/29/17 09:03 Dose: 40 mg Insulin Aspart (Novolog Vial Sliding Scale -) 1 vial SQ [facility]; Protocol Last Admin: 10/29/17 11:53 Dose: 3 units Insulin Detemir (Levemir Vial) [address] [facility] Last Admin: 10/28/17 21:34 Dose: 15 units Levothyroxine Sodium (Synthroid -) 25 mcg PO DAILY@0700 [facility] Last Admin: 10/29/17 06:18 Dose: 25 mcg Methylprednisolone Sodium Succinate (Solu-Medrol -) 60 mg IVPUSH Q6H-IV [facility] Last Admin: 10/29/17 09:02 Dose: 60 mg Metoprolol Succinate (Toprol Xl -) 25 mg PO DAILY [facility] Last Admin: 10/29/17 11:52 Dose: 25 mg - Objective Vital Signs: Vital Signs Temperature 97.7 F 10/29/17 09:00 Pulse Rate 72 10/29/17 09:00 Respiratory Rate 23 10/29/17 10:00 Blood Pressure 120/61 10/29/17 09:00 O2 Sat by Pulse Oximetry (%) 97 10/29/17 10:00 Constitutional: Yes: Well Nourished, No Distress Eyes: Yes: Conjunctiva Clear, EOM Intact HENT: Yes: Atraumatic, Normocephalic. No: Drooling Neck: Yes: Supple, Trachea Midline. No: Decreased ROM, Lymphadenopathy Cardiovascular: Yes: S1, S2. No: JVD, Murmur Respiratory: Yes: Regular, Rales Gastrointestinal: Yes: Normal Bowel Sounds, Soft Musculoskeletal: No: Back Pain, Joint Stiffness, Joint Swelling Extremities: No: Calf Tenderness, Cold Edema: RUE: 1+, LLE: 1+ Peripheral Pulses WNL: Yes Peripheral Pulses: Left Doralis Pedis: 1+, Right Dorsalis Pedis: 1+ Neurological: Yes: Alert, Oriented ...Motor Strength: WNL, LUE, LLE Labs: CBC, BMP 10/29/17 05:30 10/29/17 05:30 Problem List - Problems (1) Acute on chronic respiratory failure with hypoxia and hypercapnia Assessment/Plan: Evaluated by Pulmonary Co 2 elvation on BIPAP cont Nebs Code(s): J96.21 - ACUTE AND CHRONIC RESPIRATORY FAILURE WITH HYPOXIA; J96.22 - ACUTE AND CHRONIC RESPIRATORY FAILURE WITH HYPERCAPNIA (2) Acute on chronic diastolic (congestive) heart failure Assessment/Plan: Cont Current management improving Code(s): I50.33 - ACUTE ON CHRONIC DIASTOLIC (CONGESTIVE) HEART FAILURE (3) Atrial fibrillation Assessment/Plan: Rate controlled on apxiban Code(s): I48.91 - UNSPECIFIED ATRIAL FIBRILLATION Qualifiers: Atrial fibrillation type: paroxysmal Qualified Code(s): I48.0 - Paroxysmal atrial fibrillation (4) CAD (coronary artery disease) Assessment/Plan: S/O stent no active issue Code(s): I25.10 - ATHSCL HEART DISEASE OF [place] CORONARY ARTERY W/O ANG PCTRS Qualifiers: Coronary Disease-Associated Artery/Lesion type: [place] artery [place] vs. transplanted heart: [place] heart Associated angina: without angina Qualified Code(s): I25.10 - Atherosclerotic heart disease of [place] coronary artery without angina pectoris (5) HTN (hypertension) Assessment/Plan: Well controlled cont all hpme meds Code(s): I10 - ESSENTIAL (PRIMARY) HYPERTENSION Qualifiers: Hypertension type: essential hypertension Qualified Code(s): I10 - Essential (primary) hypertension (6) Obesity (BMI 30-39.9) Assessment/Plan: Nutrition consult Code(s): E66.9 - OBESITY, UNSPECIFIED (7) Seizure Assessment/Plan: On Keppra evaluated by Neurology no new changes in MRI Code(s): R56.9 - UNSPECIFIED CONVULSIONS (8) Hyperglycemia due to type 2 diabetes mellitus Assessment/Plan: Worsened in the setting of Steroid therapy optimize Glycemic control increase Levimir 20 units BID Code(s): E11.65 - TYPE 2 DIABETES MELLITUS WITH HYPERGLYCEMIA
[2017-10-29 17:37] LABS: URINE APPEARANCE CLOUDY; URINE BILIRUBIN NEGATIVE (<2.0 mg/dL); URINE COLOR YELLOW; URINE GLUCOSE (UA) 1+ (NEGATIVE); URINE KETONE NEGATIVE (NEGATIVE); URINE NITRITE NEGATIVE (NEGATIVE); URINE PROTEIN NEGATIVE (NEGATIVE); URINE UROBILINOGEN NEGATIVE mg/dL (0.2-1.0)
[2017-10-29 18:02] LABS: URINE LEUK ESTERASE 2+ (NEGATIVE)
[2017-10-29 18:11] LABS: EPI CELLS MANY /HPF (FEW); URINE BACTERIA FEW /hpf (NONE SEEN); URINE HYALINE CAST 16 /lpf; URINE MUCUS RARE
[2017-10-29] MEDS: ATORVASTATIN CA 40 MG TABLET (FP) PO SCH (21:52)
[2017-10-29] MEDS: INSULIN (LEVEMIR) 100 UNITS/ML UNITS SQ SCH (21:53)
[2017-10-29 22:39] LABS: ARTERIAL BLD GAS O2 SATURATION 95.5 % (90-98.9); ARTERIAL BLOOD GAS PO2 78.9 mmHg (68-100); ARTERIAL BLOOD GAS pH 7.35 (7.35-7.45)
[2017-10-29 22:41] LABS: ALLENS TEST POSITIVE
[2017-10-29 22:44] LABS: ARTERIAL BLOOD GAS PCO2 81.5 mmHg (35-45)
[2017-10-30] MEDS: methylPREDNISolone NA SUCC 125 MG/2 ML VIAL IVPUSH SCH ×4 (04:46→22:50)
[2017-10-30] MEDS: LEVOTHYROXINE NA 25 MCG TABLET (FP) PO SCH (06:42)
[2017-10-30] MEDS: INSULIN SLIDING SCALE (NOVOLOG) 1 VIAL SQ SCH ×4 (06:42→22:49)
[2017-10-30 06:45] LABS: ARTERIAL BLD GAS O2 SATURATION 96.2 % (90-98.9); ARTERIAL BLOOD GAS PO2 84.3 mmHg (68-100)
[2017-10-30 06:46] LABS: ALLENS TEST POSITIVE
[2017-10-30 06:53] LABS: CHLORIDE 91 mmol/L (98-107); SODIUM 137 mmol/L (136-145)
[2017-10-30 06:53] LABS: ARTERIAL BLOOD GAS BASE EXCESS 15.7 meq/l (-2-2); ARTERIAL BLOOD GAS PCO2 71.3 mmHg (35-45)
[2017-10-30 06:59] LABS: ANION GAP 5 (8-16); BLOOD UREA NITROGEN 39 mg/dL (7-18); CALCIUM 8.5 mg/dL (8.5-10.1); CO2 41 mmol/L (21-32); GLUCOSE,RANDOM 244 mg/dL (74-106)
[2017-10-30] MEDS: ALBUTEROL SO4 2.5/IPRATROPIUM 0.5 INH SOL 3 ML VIAL.NEB. NEB SCH ×4 (07:57→20:37)
[2017-10-30] MEDS: metoPROLOL SUCCINATE 25 MG TAB.SR.24H (FP) PO SCH (09:19)
[2017-10-30] MEDS: APIXABAN 5 MG TABLET PO SCH ×2 (09:19→22:50)
[2017-10-30] MEDS: FUROSEMIDE 40 MG/4 ML INJECTABLE VIAL IVPUSH SCH (09:19)
--- NOTE | 2017-10-30 11:05 | PN ---
Progress Note (short form) - Note Progress Note: s: no cp sob palps syncope o: Vital Signs Period Temp Pulse Resp BP Sys/Gardner Pulse Ox Last 24 Hr 96.8 F-98.8 F 65-98 18-22 121-149/54-73 94-99 nad no jvd rrr s1s2 no mrg cta bl nl eff aaox3 trace le edema bl, no c/c abd nt nd pos bs no jaundice diaphoresis Current Medications Generic Name Dose Route Start Last Admin Trade Name Freq PRN Reason Stop Dose Admin Albuterol Sulfate 1 amp 10/29/17 02:18 Ventolin 0.083% Nebulizer Soln - NEB Q4H PRN SHORT OF BREATH/WHEEZING Albuterol/Ipratropium 1 amp 10/29/17 08:00 10/30/17 07:57 Duoneb - NEB 1 amp RQID RYANN Administration Apixaban 5 mg 10/27/17 22:00 10/30/17 09:19 Eliquis - PO 5 mg BID RYANN Administration Atorvastatin Calcium 40 mg 10/28/17 22:00 10/29/17 21:52 Lipitor - PO 40 mg HS RYANN Administration Furosemide 40 mg 10/28/17 10:00 10/30/17 09:19 Lasix Injection - IVPUSH 40 mg DAILY RYANN Administration Insulin Aspart 1 vial 10/27/17 22:00 10/30/17 06:42 Novolog Vial Sliding Scale - SQ 3 units ACHS RYANN Administration Protocol Insulin Detemir 15 units 10/27/17 22:00 10/29/17 21:53 Levemir Vial SQ 15 units HS RYANN Administration Levothyroxine Sodium 25 mcg 10/29/17 07:00 10/30/17 06:42 Synthroid - PO 25 mcg DAILY@0700 R[facility]ANN Administration Methylprednisolone Sodium Succinate 60 mg 10/29/17 09:00 10/30/17 09:19 Solu-Medrol - IVPUSH 60 mg Q6H-IV R[facility]ANN Administration Metoprolol Succinate 25 mg 10/28/17 10:00 10/30/17 09:19 Toprol Xl - PO 25 mg DAILY RYANN Administration Pantoprazole Sodium 40 mg 10/30/17 10:45 Protonix - PO DAILY RYANN CBC, BMP 10/29/17 05:30 10/30/17 05:30 cxr: diffuse incr markings, bilat effusions ecg: sr, lvh with repol changes LHC/PCI 10/2013: mid LAD and Diag YURIY PCI, residual prox LCX 90-95% calcific and only 30-50% dist LM disease Echo 04/2017: mild dec lvef, apical hk. nl rv. mod mr, mild-mod tr, mild as, rvsp 40-50 Echo 10/2013 : mildly reduced LVF, apical severe HK, anterior mod HK, mild to mod MR, mild to mod TR, RVSP 50-60 tele: SR a/p: 82 yr old lady with known CAD/pci, chf, HTN, HPL, DM, pad, obesity, pafib (dx 05/2017 when admitted for copd) sent from pmd for low 02 sat acute hypoxic resp failure, acute mixed diastolic/systolic CHF, known copd: -chronic, mild LV hypokinesis -here with low o2 sat (85%) -bnp 6K, below prior range (7K-18K) -CXR with chronic very prominent markings diffusely since 05/15--not significantly changed presently. ? incr in prior bibasilar opacities c/w incr effusions. -troponins negative, no ischemic ecg changes -on lasix 40 po daily at home. being given trial of 40 IV qd here. -last scale wt 216 when here 07/13. no wt recorded here, will obtain. -10/29-5: renal fxn/lytes stable--continue same lasix 40 iv qd. monitor daily wt and labs trend -recent echo with stable findings vs prior, no stigmata of severe pulm HTN noted on that study -copd tx per pulmonary neuropsychology medical consultant -bipap, supplemental O2 as doing -consider CT chest (to r/o ILDz or other) if pt not improving with diuresis CAD s/p PCI: -pt s/p rota YURIY PCI of mid LAD and Diag 2013, residual prox LCX 90-95% calcific --medically managed -Has been stable, no anginal sxs. -atypical cp symptoms reported here. enzymes neg, no acute isch ecg. -plan nuclear stress test after acute hypoxia issues resolve. Cont bb, statin, ac (no ASA) per prior cardio tx plan HTN: -bp controlled -same meds pafib: -in sinus here. cont toprol -cont eliquis 5 bid for AC PAD: -known occluded R SFA on 2015 periph angiogram, with dz on L below knee -? if any interventions done -routine outpt f/u
[2017-10-30] MEDS: PANTOPRAZOLE 40 MG TABLET (FP) PO SCH (11:35)
--- NOTE | 2017-10-30 12:11 | PN ---
Progress Note, Physician Chief Complaint: Ms Jarrett says her breathing is a little better. Denies cp or n/v. - Current Medication List Current Medications: Active Medications Albuterol Sulfate (Ventolin 0.083% Nebulizer Soln -) 1 amp NEB Q4H PRN PRN Reason: SHORT OF BREATH/WHEEZING Albuterol/Ipratropium (Duoneb -) 1 amp NEB RQID [facility] Last Admin: 10/30/17 11:28 Dose: 1 amp Apixaban (Eliquis -) 5 mg PO BID [facility] Last Admin: 10/30/17 09:19 Dose: 5 mg Atorvastatin Calcium (Lipitor -) 40 mg PO HS [facility] Last Admin: 10/29/17 21:52 Dose: 40 mg Furosemide (Lasix Injection -) 40 mg IVPUSH DAILY [facility] Last Admin: 10/30/17 09:19 Dose: 40 mg Insulin Aspart (Novolog Vial Sliding Scale -) 1 vial SQ [facility]; Protocol Last Admin: 10/30/17 06:42 Dose: 3 units Insulin Detemir (Levemir Vial) 15 units SQ [facility] Last Admin: 10/29/17 21:53 Dose: 15 units Levothyroxine Sodium (Synthroid -) 25 mcg PO DAILY@0700 [facility] Last Admin: 10/30/17 06:42 Dose: 25 mcg Methylprednisolone Sodium Succinate (Solu-Medrol -) 60 mg IVPUSH Q6H-IV [facility] Last Admin: 10/30/17 09:19 Dose: 60 mg Metoprolol Succinate (Toprol Xl -) 25 mg PO DAILY [facility] Last Admin: 10/30/17 09:19 Dose: 25 mg Pantoprazole Sodium (Protonix -) 40 mg PO DAILY [facility] Last Admin: 10/30/17 11:35 Dose: 40 mg - Objective Vital Signs: Vital Signs Temperature 37.0 C 10/30/17 09:10 Pulse Rate 81 10/30/17 09:10 Respiratory Rate 19 10/30/17 09:10 Blood Pressure 131/63 10/30/17 09:10 O2 Sat by Pulse Oximetry (%) 98 10/30/17 07:57 Constitutional: Yes: No Distress, Calm, Obese Cardiovascular: Yes: Regular Rate and Rhythm. No: Gallop, Murmur, Rub Respiratory: Yes: Regular, CTA Bilaterally, On Nasal O2. No: Rales, Rhonchi, Wheezes Gastrointestinal: Yes: Normal Bowel Sounds, Soft. No: Distention, Tenderness Extremities: Yes: WNL Edema: No Labs: CBC, BMP 10/29/17 05:30 10/30/17 05:30 Problem List - Problems (1) Acute on chronic diastolic (congestive) heart failure Code(s): I50.33 - ACUTE ON CHRONIC DIASTOLIC (CONGESTIVE) HEART FAILURE (2) Diabetes mellitus Code(s): E11.9 - TYPE 2 DIABETES MELLITUS WITHOUT COMPLICATIONS Qualifiers: Diabetes mellitus type: type 2 Diabetes mellitus prison insulin use: without prison use Diabetes mellitus complication status: without complication Qualified Code(s): E11.9 - Type 2 diabetes mellitus without complications (3) HTN (hypertension) Code(s): I10 - ESSENTIAL (PRIMARY) HYPERTENSION Qualifiers: Hypertension type: essential hypertension Qualified Code(s): I10 - Essential (primary) hypertension (4) Hyperlipidemia Code(s): E78.5 - HYPERLIPIDEMIA, UNSPECIFIED Qualifiers: Hyperlipidemia type: pure hypercholesterolemia Qualified Code(s): E78.00 - Pure hypercholesterolemia, unspecified; E78.0 - Pure hypercholesterolemia (5) Atrial fibrillation Code(s): I48.91 - UNSPECIFIED ATRIAL FIBRILLATION Qualifiers: Atrial fibrillation type: paroxysmal Qualified Code(s): I48.0 - Paroxysmal atrial fibrillation (6) COPD (chronic obstructive pulmonary disease) Code(s): J44.9 - CHRONIC OBSTRUCTIVE PULMONARY DISEASE, UNSPECIFIED (7) CAD (coronary artery disease) Code(s): I25.10 - ATHSCL HEART DISEASE OF [place] CORONARY ARTERY W/O ANG PCTRS (8) Chronic respiratory failure with hypoxia Code(s): J96.11 - CHRONIC RESPIRATORY FAILURE WITH HYPOXIA Assessment/Plan (1) Acute on chronic diastolic (congestive) heart failure Assessment/Plan: -improving -cardiology following and case discussed -continue lasix 40mg IV daily currently Code(s): I50.33 - ACUTE ON CHRONIC DIASTOLIC (CONGESTIVE) HEART FAILURE (2) Diabetes mellitus Assessment/Plan: -diabetic diet -continue levemir and SSI -hyperglycemia secondary to steroids Code(s): E11.9 - TYPE 2 DIABETES [place] WITHOUT COMPLICATIONS Qualifiers: Diabetes mellitus type: type 2 Diabetes mellitus prison insulin use: without intermediate 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 Diabetes mellitus complication status: without complication Qualified Code(s): E11.9 - Type 2 diabetes mellitus without complications (3) HTN (hypertension) Assessment/Plan: -continue toprol xl and lasix Code(s): I10 - ESSENTIAL (PRIMARY) HYPERTENSION Qualifiers: Hypertension type: essential hypertension Qualified Code(s): I10 - Essential (primary) hypertension (4) Hyperlipidemia Assessment/Plan: -continue statin Code(s): E78.5 - HYPERLIPIDEMIA, UNSPECIFIED Qualifiers: Hyperlipidemia type: pure hypercholesterolemia Qualified Code(s): E78.00 - Pure hypercholesterolemia, unspecified; E78.0 - Pure hypercholesterolemia (5) Atrial fibrillation Assessment/Plan: -seen last hospitalization -cardiology following -started on eliquis -currently sinus rhythm on exam Code(s): I48.91 - UNSPECIFIED ATRIAL FIBRILLATION Qualifiers: Atrial fibrillation type: paroxysmal Qualified Code(s): I48.0 - Paroxysmal atrial fibrillation (6) COPD (chronic obstructive pulmonary disease) Assessment/Plan: -appreciate pulmonary assistance -in exacerbation -continue solumedrol -continue duonebs -lung exam clear today Code(s): J44.9 - CHRONIC OBSTRUCTIVE PULMONARY DISEASE, UNSPECIFIED (7) CAD (coronary artery disease) Assessment/Plan: -quiescent -continue toprol xl Code(s): I25.10 - ATHSCL HEART DISEASE OF [place] CORONARY ARTERY W/O ANG PCTRS (8) Chronic respiratory failure with hypoxia Assessment/Plan: -continue oxygen support -on oxygen at home [id number] Code(s): J96.11 - CHRONIC RESPIRATORY FAILURE WITH HYPOXIA
--- NOTE | 2017-10-30 12:56 | PN ---
Progress Note (short form) - Note Progress Note: PULMONARY States breathing slightly improving. +nonproductive cough. Vital Signs Period Temp Pulse Resp BP Sys/Gardner Pulse Ox Last 24 Hr 96.8 F-98.8 F 65-98 18-22 121-149/54-73 94-99 Intake & Output 10/27/17 10/28/17 10/29/17 10/30/17 23:59 23:59 23:59 23:59 Intake Total 370 380 10 Balance 370 380 10 Weight 99.79 kg 96.162 kg Gen: NAD in chair Heart: RRR Lung: bibasilar rales Abd: soft, nontender Ext: distal edema CBC, BMP 10/29/17 05:30 10/30/17 05:30 Active Medications Albuterol Sulfate (Ventolin 0.083% Nebulizer Soln -) 1 amp NEB Q4H PRN PRN Reason: SHORT OF BREATH/WHEEZING Albuterol/Ipratropium (Duoneb -) 1 amp NEB RQID [facility] Last Admin: 10/30/17 11:28 Dose: 1 amp Apixaban (Eliquis -) 5 mg PO BID [facility] Last Admin: 10/30/17 09:19 Dose: 5 mg Atorvastatin Calcium (Lipitor -) 40 mg PO [facility] Last Admin: 10/29/17 21:52 Dose: 40 mg Furosemide (Lasix Injection -) 40 mg IVPUSH DAILY [facility] Last Admin: 10/30/17 09:19 Dose: 40 mg Insulin Aspart (Novolog Vial Sliding Scale -) 1 vial SQ [facility]; Protocol Last Admin: 10/30/17 12:16 Dose: 10 units Insulin Detemir (Levemir Vial) 15 units SQ [facility] Last Admin: 10/29/17 21:53 Dose: 15 units Levothyroxine Sodium (Synthroid -) 25 mcg PO DAILY@0700 [facility] Last Admin: 10/30/17 06:42 Dose: 25 mcg Methylprednisolone Sodium Succinate (Solu-Medrol -) 60 mg IVPUSH Q6H-IV [facility] Last Admin: 10/30/17 09:19 Dose: 60 mg Metoprolol Succinate (Toprol Xl -) 25 mg PO DAILY [facility] Last Admin: 10/30/17 09:19 Dose: 25 mg Pantoprazole Sodium (Protonix -) 40 mg PO DAILY [facility] Last Admin: 10/30/17 11:35 Dose: 40 mg A/P Acute on Chronic Hypoxic and Hypercapneic Respiratory Failure Acute on Chronic Systolic/Diastolic Heart Failure COPD Pulmonary HTN Paroxysmal Atrial Fibrillation HTN DM Likely BILL - continue lasix - monitor urine output, creatinine - daily weights - beta lynn - inhaled bronchodilators - O2 to keep SpO2 >90% - BiPAP as needed - rate controlled - continue anticoagulation
--- NOTE | 2017-10-30 16:28 | RAPID ---
Physical Examination Vital Signs: Vital Signs Temperature 97.3 F L 10/30/17 14:00 Pulse Rate 63 10/30/17 14:00 Respiratory Rate 20 10/30/17 14:00 Blood Pressure 126/67 10/30/17 14:00 O2 Sat by Pulse Oximetry (%) 100 10/30/17 16:26 Labs: CBC, BMP 10/29/17 05:30 10/30/17 05:30
--- NOTE | 2017-10-30 16:45 | RAPID ---
Physical Examination Vital Signs: VS: BP: 193/88 PO2 97% HR: 85 Findings/Remarks: Initial Assessment: Rule out stroke, left-sided facial droop with slurred speech. Plan: Stroke protocol was initiated. CT Head w/o contrast stat. Discussed with PCP by bedside Discussed with Pts family bedside. Patient was re-assesed post CT head: Neuro-Pt was alert, communicating, no slurring noted, no facial droop, Pt. has residual RUE weakness 4/5 from prior event. LUE 5/5 strength. RLE and LLE 5/5 No drift in any extremity. Sensation to touch intact in all extremities. EOMI. PERRLA. Plan: Continue to monitor for stroke signs f/u CT if signs develop Constitutional: Yes: Moderate Distress Eyes: No: EOM Intact Respiratory: No: Intubated Edema: No Peripheral Pulses: Left Radial: 2+, Right Radial: 2+ Neurological: Yes: Alert, Facial Droop, Other (NIHSS: 5). No: Tremors ...Motor Strength: WNL, LUE (no drift), LLE (no drift), RUE (no drift, became weaker over time), RLE (no drift) Labs: CBC, BMP 10/29/17 05:30 10/30/17 05:30 Suspected CVA - Suspected CVA MD Exam Time (Code Cain Time): 16:25 CT Stroke ordered: Yes Stat "Code Cain" Consult to Neurology called: Yes Last Known Well (Date): 10/30/17 Last Known Well (Time): 16:15 Symptom Discovery (Date): 10/30/17 Symptom Discovery (Time): 16:20
[2017-10-30 18:43] LABS: ARTERIAL BLD GAS O2 SATURATION 95.8 % (90-98.9); ARTERIAL BLOOD GAS BASE EXCESS 12.4 meq/l (-2-2); ARTERIAL BLOOD GAS PO2 79.3 mmHg (68-100)
[2017-10-30 19:01] LABS: ANION GAP 7 (8-16); BLOOD UREA NITROGEN 44 mg/dL (7-18); CALCIUM 8.4 mg/dL (8.5-10.1); CHLORIDE 89 mmol/L (98-107); CO2 40 mmol/L (21-32); CREATININE 1.2 mg/dL (0.55-1.02); POTASSIUM 4.7 mmol/L (3.5-5.1); SODIUM 136 mmol/L (136-145)
[2017-10-30 19:03] LABS: CHOLESTEROL 195 mg/dL (50-200); HDL CHOLESTEROL 76 mg/dL (40-60); TRIGLYCERIDES 126 mg/dL (35-160)
[2017-10-30 19:04] LABS: GLUCOSE,RANDOM 459 mg/dL (74-106)
[2017-10-30 19:32] LABS: ARTERIAL BLOOD GAS PCO2 65.2 mmHg (35-45)
[2017-10-30 19:32] LABS: HEMATOCRIT 37.7 % (32.4-45.2); HEMOGLOBIN 11.6 GM/dL (10.7-15.3); MCH 20.3 pg (25.7-33.7); MCHC 30.7 g/dl (32.0-36.0); MEAN CELL VOLUME 66.3 fl (80-96); MEAN PLT VOLUME 8.4 fl (7.5-11.1); PLATELET COUNT 278 K/MM3 (134-434); RBC 5.68 M/mm3 (3.60-5.2); RDW 16.9 % (11.6-15.6); WHITE BLOOD COUNT 6.8 K/mm3 (4.0-10.0)
[2017-10-30 19:33] LABS: ADD RBC MORPHOLOGY YES
[2017-10-30 20:08] LABS: MACROCYTOSIS 1+
[2017-10-30 20:09] LABS: PLATELET ESTIMATE ADEQUATE
[2017-10-30 20:10] LABS: ANISOCYTOSIS 1+
[2017-10-30] MEDS: INSULIN (LEVEMIR) 100 UNITS/ML UNITS SQ SCH (22:49)
[2017-10-30] MEDS: ATORVASTATIN CA 40 MG TABLET (FP) PO SCH (22:50)
[2017-10-31] MEDS: methylPREDNISolone NA SUCC 125 MG/2 ML VIAL IVPUSH SCH ×2 (03:40→08:34)
[2017-10-31] MEDS: LEVOTHYROXINE NA 25 MCG TABLET (FP) PO SCH (06:20)
[2017-10-31] MEDS: INSULIN SLIDING SCALE (NOVOLOG) 1 VIAL SQ SCH ×4 (06:20→23:01)
--- NOTE | 2017-10-31 06:25 | HOSP ---
Physical Examination Vital Signs: Vital Signs Temperature 98.2 F 10/31/17 02:00 Pulse Rate 76 10/31/17 02:00 Respiratory Rate 20 10/31/17 02:00 Blood Pressure 112/47 10/31/17 02:00 O2 Sat by Pulse Oximetry (%) 97 10/30/17 23:00 Labs: CBC, BMP 10/30/17 18:00 10/30/17 18:00 Hospitalist Encounter Assessment: Antoni Aponte was called for 4 west. Patient was seen resting comfortably in exam bed, in no acute distress. HR 93 BPM, BP 157/64, saturating 98% room air. Patient was alert, communicating and following commands. 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 Visit type - Emergency Visit Emergency Visit: Yes ED Registration Date: 10/28/17 Care time: The patient presented to the Emergency Department on the above date and was hospitalized for further evaluation of their emergent condition. - New Patient This patient is new to me today: Yes Date on this admission: 10/31/17 - Critical Care Critical Care patient: No
[2017-10-31 06:48] LABS: BASO % 0.1 % (0-2.0); HEMOGLOBIN 11.3 GM/dL (10.7-15.3); LYMPH % 4.7 % (8-40); MCH 20.7 pg (25.7-33.7); MCHC 31.4 g/dl (32.0-36.0); MEAN CELL VOLUME 65.9 fl (80-96); MEAN PLT VOLUME 8.1 fl (7.5-11.1); MONO % 1.4 % (3.8-10.2); NEUT % 93.8 % (42.8-82.8); PLATELET COUNT 252 K/MM3 (134-434); RBC 5.47 M/mm3 (3.60-5.2); RDW 17.1 % (11.6-15.6); WHITE BLOOD COUNT 5.9 K/mm3 (4.0-10.0)
[2017-10-31 06:54] LABS: INR 1.33 (0.82-1.09)
[2017-10-31] MEDS: ALBUTEROL SO4 2.5/IPRATROPIUM 0.5 INH SOL 3 ML VIAL.NEB. NEB SCH ×4 (07:19→21:17)
[2017-10-31 07:25] LABS: CHLORIDE 90 mmol/L (98-107); POTASSIUM 4.7 mmol/L (3.5-5.1); SODIUM 137 mmol/L (136-145)
[2017-10-31 07:31] LABS: ANION GAP 7 (8-16); BLOOD UREA NITROGEN 47 mg/dL (7-18); CALCIUM 8.5 mg/dL (8.5-10.1); CO2 40 mmol/L (21-32); CREATININE 0.9 mg/dL (0.55-1.02); MAGNESIUM 2.3 mg/dL (1.8-2.4); PHOSPHOROUS 3.2 mg/dL (2.5-4.9)
[2017-10-31 07:51] LABS: GLUCOSE,RANDOM 337 mg/dL (74-106)
[2017-10-31] MEDS: PANTOPRAZOLE 40 MG TABLET (FP) PO SCH (09:02)
[2017-10-31] MEDS: FUROSEMIDE 40 MG/4 ML INJECTABLE VIAL IVPUSH SCH (09:02)
[2017-10-31] MEDS: metoPROLOL SUCCINATE 25 MG TAB.SR.24H (FP) PO SCH (09:03)
[2017-10-31] MEDS: APIXABAN 5 MG TABLET PO SCH ×2 (09:03→21:57)
--- NOTE | 2017-10-31 09:07 | CONSULT ---
Consult - text type - Consultation Consultation Note: Neurology HISTORY OF PRESENT ILLNESS: 82 year old female with a significant past medical history of HTN, HLD, CHF, CAD , NE, COPD, DM who presented to the ED from her PCP, Dr. Fournier, for low oxygen saturation in office. Her room air saturation was reportedly 80; whereas typically around 90. She had SOB with exertion and intermittent brief left sided stabbing chest pain for 5 days per notes. She reported that she ran out of some of her medications approximately 2 weeks ago including her lasix. She was admitted for further respiratory management. Only 10/30, had episode of left- sided facial droop with slurred speech, code marjorie was called. Patient had CT head which did not show acute changes. She does have Afib and on Eliquis. Spoke to hospitalist at the time, not TPA candidate, as she is on AC (eliquis) for Afib. After imaging, reportedly stabilized and did not have slurred speech. MRI brain completed and without acute changes. 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 Episode may be recredesence from prior infarct during acute illness. Carotids also completed and reviewed and 50- 69% on the R, moderate plaques on L. This Am, not slurring speech, calm and cooperative at bedside. Spoke to nurse and mentioned episode of facial twitching that occured and witnessed. EEG ordered, follow up results. Recent Travel: pt denies PAST MEDICAL HISTORY: HTN, CAD, CHF, NE 2013, HLD, PAFib, COPD s/p intubation x 3, DM, GERD, hypothyroidism PAST SURGICAL HISTORY: stent x 2, 2014 R TKR cholecystectomy Social History: Smoking: pt denies Alcohol: pt denies Drugs: pt denies Family History: mother and father both in their 70s, h/o DM all her siblings with DM and heart problems 5 children, no medical issues Allergies Penicillins Allergy (Verified 10/27/17 16:27) Apple juice Allergy (Uncoded 10/27/17 16:27) HOME MEDICATIONS: 3 Medication Instructions Recorded Insulin Lispro [Humalog] 0 unit SQ TIDCM PRN 03/02/14 Metoprolol Succinate [Toprol XL -] 25 mg PO DAILY #30 tab.sr.24h 03/11/14 Apixaban [Eliquis -] 5 mg PO BID #60 tablet 06/09/17 Insulin (Levemir) [Levemir Vial] 15 unit SQ HS 07/16/17 Furosemide [Lasix] 40 mg PO DAILY #30 tablet 07/20/17 Levothyroxine 25mcg daily Insulin Sliding Scale [Novolog 1 vial SQ ACHS units 07/20/17 Vial Sliding Scale -] REVIEW OF SYSTEMS CONSTITUTIONAL: Absent: fever, chills, diaphoresis, generalized weakness, malaise, loss of appetite, weight change HEENT: Absent: rhinorrhea, nasal congestion, throat pain, throat swelling, difficulty swallowing, mouth swelling, ear pain, eye pain, visual changes CARDIOVASCULAR: Present: chest pain, peripheral edema Absent: syncope, palpitations, irregular heart rate, lightheadedness RESPIRATORY: Present: cough, shortness of breath, dyspnea with exertion Absent: orthopnea, wheezing, stridor, hemoptysis GASTROINTESTINAL: Absent: abdominal pain, abdominal distension, nausea, vomiting, diarrhea, constipation, melena, hematochezia GENITOURINARY: Absent: dysuria, frequency, urgency, hesitancy, hematuria, flank pain, genital pain MUSCULOSKELETAL: Absent: myalgia, arthralgia, joint swelling, back pain, neck pain SKIN: Absent: rash, itching, pallor HEMATOLOGIC/IMMUNOLOGIC: Absent: easy bleeding, easy bruising, lymphadenopathy, frequent infections ENDOCRINE: Absent: unexplained weight gain, unexplained weight loss, heat intolerance, cold intolerance NEUROLOGIC: Absent: headache, focal weakness or paresthesias, dizziness, unsteady gait, seizure, mental status changes, bladder or bowel incontinence PSYCHIATRIC: Absent: anxiety, depression, suicidal or homicidal ideation, hallucinations. PHYSICAL EXAMINATION Vital Signs Period Temp Pulse Resp BP Sys/Gardner Pulse Ox Last 24 Hr 97.3 F-98.6 F 63-76 18-20 112-147/47-81 96-100 GENERAL: Awake, alert, and fully oriented, in no acute distress. HEAD: Normal with no signs of trauma. EYES: Pupils equal, round and reactive to light, extraocular movements intact, sclera anicteric, conjunctiva clear. No lid lag. EARS, NOSE, THROAT: Ears normal, nares patent, oropharynx clear without exudates. Moist mucous membranes. NECK: Normal range of motion, supple without lymphadenopathy, JVD, or masses. LUNGS: Crackles bilateral bases, no wheezing. No accessory muscle use. HEART: Regular rate and rhythm, normal S1 and S2 without murmur, rub or gallop. ABDOMEN: Soft, nontender, not distended, normoactive bowel sounds, no guarding, no rebound, no masses. No hepatomegaly or splenomegaly. MUSCULOSKELETAL: Normal range of motion at all joints. No bony deformities or tenderness. No CVA tenderness. UPPER EXTREMITIES: 2+ pulses, warm, well-perfused. No cyanosis. No clubbing. No peripheral edema. LOWER EXTREMITIES: 2+ pulses, warm, well-perfused. No calf tenderness. 2+ pitting peripheral edema. NEUROLOGICAL: Slight L facial, otherwise CN intact, moving all extremities equally, not participating in full confrontation testing, sensory intact PSYCHIATRIC: Cooperative. Good eye contact. Appropriate mood and affect. SKIN: Warm, dry, normal turgor, no rashes or lesions noted, normal capillary refill. CBCD WBC 5.9 K/mm3 (4.0-10.0) 10/31/17 06:00 RBC 5.47 M/mm3 (3.60-5.2) H 10/31/17 06:00 Hgb 11.3 GM/dL (10.7-15.3) 10/31/17 06:00 Hct 36.0 % (32.4-45.2) 10/31/17 06:00 MCV 65.9 fl (80-96) L 10/31/17 06:00 MCHC 31.4 g/dl (32.0-36.0) L 10/31/17 06:00 RDW 17.1 % (11.6-15.6) H 10/31/17 06:00 Plt Count 252 K/MM3 (134-434) 10/31/17 06:00 MPV 8.1 fl (7.5-11.1) 10/31/17 06:00 CMP Sodium 137 mmol/L (136-145) 10/31/17 06:00 Potassium 4.7 mmol/L (3.5-5.1) 10/31/17 06:00 Chloride 90 mmol/L (98-107) L 10/31/17 06:00 Carbon Dioxide 40 mmol/L (21-32) H 10/31/17 06:00 Anion Gap 7 (8-16) L 10/31/17 06:00 BUN 47 mg/dL (7-18) H 10/31/17 06:00 Creatinine 0.9 mg/dL (0.55-1.02) 10/31/17 06:00 Creat Clearance w eGFR > 60 (>60) 10/31/17 06:00 Random Glucose 337 mg/dL (74-106) H* 10/31/17 06:00 Calcium 8.5 mg/dL (8.5-10.1) 10/31/17 06:00 Total Bilirubin 1.2 mg/dL (0.2-1.0) H 10/27/17 16:43 AST 20 U/L (15-37) 10/27/17 16:43 ALT 20 U/L (12-78) 10/27/17 16:43 Alkaline Phosphatase 87 U/L (45-117) 10/27/17 16:43 Total Protein 7.2 g/dl (6.4-8.2) 10/27/17 16:43 Albumin 3.3 g/dl (3.4-5.0) L 10/27/17 16:43 CARDIAC ENZYMES Creatine Kinase 61 IU/L (26-192) 10/28/17 05:30 Troponin I < 0.02 ng/ml (0.00-0.05) 10/30/17 18:[address] head reviewed Carotid Doppler reviewed MRI brain reviewed ASSESSMENT/PLAN: 82 year old female with a significant past medical history of HTN, HLD, CHF, CAD , NE, COPD, DM who presented to the ED from her PCP, Dr. Fournier, for low oxygen saturation in office. Her room air saturation was reportedly 80; whereas typically around 90. She had SOB with exertion and intermittent brief left sided stabbing chest pain for 5 days per notes. She reported that she ran out of some of her medications approximately 2 weeks ago including her lasix. She was admitted for further respiratory management. Only 10/30, had episode of left- sided facial droop with slurred speech, code amador was called. Patient had CT head which did not show acute changes. She does have Afib and on Eliquis. Spoke to hospitalist at the time, not TPA candidate, as she is on AC (eliquis) for Afib. After imaging, reportedly stabilized and did not have slurred speech. MRI brain completed and without acute changes. 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 Episode may be recredesence from prior infarct during acute illness. Carotids also completed and reviewed and 50- 69% on the R, moderate plaques on L. This Am, not slurring speech, calm and cooperative at bedside. Spoke to nurse and mentioned episode of facial twitching that occured and witnessed. EEG ordered, follow up results. Will hold off on adding AED for now unless twitching events are recurrent. Continue neuro monitoring. Medical optimization of CHF. Monitor blood pressure, recommend < 140 /90 for now. Continue eliqus for Afib. Fall precautions.
[2017-10-31 10:33] LABS: ANISOCYTOSIS 3+; MACROCYTOSIS 0; PLATELET ESTIMATE NORMAL
[2017-10-31] MEDS ORDERED: INSULIN (NOVOLOG) ASPART 100 UNITS/ML 10ML VIAL ONE (11:16)
--- NOTE | 2017-10-31 11:44 | PN ---
Progress Note (short form) - Note Progress Note: s: no cp sob palps syncope. had slurred speech and facial droop this am, resolved now o: Vital Signs Period Temp Pulse Resp BP Sys/Gardner Pulse Ox Last 24 Hr 97.3 F-98.6 F 63-76 18-20 112-147/47-81 96-100 nad no jvd rrr s1s2 no mrg cta bl nl eff aaox3 trace le edema bl, no c/c abd nt nd pos bs no jaundice diaphoresis Current Medications Generic Name Dose Route Start Last Admin Trade Name Freq PRN Reason Stop Dose Admin Albuterol Sulfate 1 amp 10/29/17 02:18 Ventolin 0.083% Nebulizer Soln - NEB Q4H PRN SHORT OF BREATH/WHEEZING Albuterol/Ipratropium 1 amp 10/29/17 08:00 10/31/17 11:03 Duoneb - NEB 1 amp RQID RYANN Administration Apixaban 5 mg 10/27/17 22:00 10/31/17 09:03 Eliquis - PO 5 mg BID RYANN Administration Atorvastatin Calcium 40 mg 10/28/17 22:00 10/30/17 22:50 Lipitor - PO 40 mg HS RYANN Administration Furosemide 40 mg 10/28/17 10:00 10/31/17 09:02 Lasix Injection - IVPUSH 40 mg DAILY RYANN Administration Insulin Aspart 1 vial 10/27/17 22:00 10/31/17 06:20 Novolog Vial Sliding Scale - SQ 6 units ACHS RYANN Administration Protocol Insulin Detemir 15 units 10/31/17 22:00 Levemir Vial SQ BID RYANN Levothyroxine Sodium 25 mcg 10/29/17 07:00 10/31/17 06:20 Synthroid - PO 25 mcg DAILY@0700 RYANN Administration Methylprednisolone Sodium Succinate 60 mg 10/29/17 09:00 10/31/17 08:34 Solu-Medrol - IVPUSH 60 mg Q6H-IV RYANN Administration Metoprolol Succinate 25 mg 10/28/17 10:00 10/31/17 09:03 Toprol Xl - PO 25 mg DAILY RYANN Administration Pantoprazole Sodium 40 mg 10/30/17 10:45 10/31/17 09:02 Protonix - PO 40 mg DAILY RYANN Administration CBC, BMP 10/31/17 06:00 10/31/17 06:00 cxr: diffuse incr markings, bilat effusions ecg: sr, lvh with repol changes LHC/PCI 10/2013: mid LAD and Diag YURIY PCI, residual prox LCX 90-95% calcific and only 30-50% dist LM disease Echo 04/2017: mild dec lvef, apical hk. nl rv. mod mr, mild-mod tr, mild as, rvsp 40-50 Echo 10/2013 : mildly reduced LVF, apical severe HK, anterior mod HK, mild to mod MR, mild to mod TR, RVSP 50-60 tele: SR, pvcs a/p: 82 yr old lady with known CAD/pci, chf, HTN, HPL, DM, pad, obesity, pafib (dx 05/2017 when admitted for copd) sent from pmd for low 02 sat acute hypoxic resp failure, acute mixed diastolic/systolic CHF, known copd: -chronic, mild LV hypokinesis -here with low o2 sat (85%) -bnp 6K, below prior range (7K-18K) -CXR with chronic very prominent markings diffusely since 05/15--not significantly changed presently. ? incr in prior bibasilar opacities c/w incr effusions. -troponins negative, no ischemic ecg changes -on lasix 40 po daily at home. being given trial of 40 IV qd here. -last scale wt 216 when here 07/13. no wt recorded here, will obtain. -10/29-6: renal fxn/lytes stable--continue same lasix 40 iv qd. monitor daily wt and labs trend -recent echo with stable findings vs prior, no stigmata of severe pulm HTN noted on that study -copd tx per pulmonary retail sales vitamin consultant -bipap, supplemental O2 as doing CAD s/p PCI: -pt s/p rota YURIY PCI of mid LAD and Diag 2013, residual prox LCX 90-95% calcific --medically managed -Has been stable, no anginal sxs. -atypical cp symptoms reported here. enzymes neg, no acute isch ecg. -plan nuclear stress test after acute hypoxia issues resolve. Cont bb, statin, ac (no ASA). HTN: -bp controlled -same meds pafib: -in sinus here. cont toprol -cont eliquis 5 bid for AC PAD: -known occluded R SFA on 2014 periph angiogram, with dz on L below knee -? if any interventions done -routine outpt f/u slurred speech, facial droop, twitching: -resolved, being evaluated by neuro
[2017-10-31] MEDS ORDERED: INSULIN (NOVOLOG) ASPART 100 UNITS/ML 10ML VIAL SQ ONE ×3 (11:47→22:45)
--- NOTE | 2017-10-31 12:05 | PN ---
Progress Note, Physician Chief Complaint: Ms Jarrett says her breathing continues to get better but still not baseline. No cp or sob. Concern for slurring last night and twitching this am. - Current Medication List Current Medications: Active Medications Albuterol Sulfate (Ventolin 0.083% Nebulizer Soln -) 1 amp NEB Q4H PRN PRN Reason: SHORT OF BREATH/WHEEZING Albuterol/Ipratropium (Duoneb -) 1 amp NEB RQID [facility] Last Admin: 10/31/17 11:03 Dose: 1 amp Apixaban (Eliquis -) 5 mg PO BID [facility] Last Admin: 10/31/17 09:03 Dose: 5 mg Atorvastatin Calcium (Lipitor -) 40 mg PO HS [facility] Last Admin: 10/30/17 22:50 Dose: 40 mg Furosemide (Lasix Injection -) 40 mg IVPUSH DAILY [facility] Last Admin: 10/31/17 09:02 Dose: 40 mg Insulin Aspart (Novolog Vial Sliding Scale -) 1 vial SQ ACHS [facility]; Protocol Last Admin: 10/31/17 06:20 Dose: 6 units Insulin Detemir (Levemir Vial) 15 units SQ BID@0700,2200 [facility] Levothyroxine Sodium (Synthroid -) 25 mcg PO DAILY@0700 [facility] Last Admin: 10/31/17 06:20 Dose: 25 mcg Methylprednisolone Sodium Succinate (Solu-Medrol -) 60 mg IVPUSH Q6H-IV [facility] Last Admin: 10/31/17 08:34 Dose: 60 mg Metoprolol Succinate (Toprol Xl -) 25 mg PO DAILY [facility] Last Admin: 10/31/17 09:03 Dose: 25 mg Pantoprazole Sodium (Protonix -) 40 mg PO DAILY [facility] Last Admin: 10/31/17 09:02 Dose: 40 mg - Objective Vital Signs: Vital Signs Temperature 36.5 C 10/31/17 10:00 Pulse Rate 71 10/31/17 10:00 Respiratory Rate 20 10/31/17 10:00 Blood Pressure 142/68 10/31/17 10:00 O2 Sat by Pulse Oximetry (%) 98 10/31/17 07:19 Constitutional: Yes: No Distress, Calm, Obese Cardiovascular: Yes: Regular Rate and Rhythm. No: Gallop, Murmur, Rub Respiratory: Yes: Regular, CTA Bilaterally, On Nasal O2. No: Rales, Rhonchi, Wheezes Gastrointestinal: Yes: Normal Bowel Sounds, Soft. No: Distention, Tenderness Extremities: Yes: WNL Edema: No Labs: CBC, BMP 10/31/17 06:00 10/31/17 06:00 INR, PTT INR 1.33 (0.82-1.09) H D 10/31/17 06:00 Problem List - Problems (1) Acute on chronic diastolic (congestive) heart failure Code(s): I50.33 - ACUTE ON CHRONIC DIASTOLIC (CONGESTIVE) HEART FAILURE (2) Diabetes mellitus Code(s): E11.9 - TYPE 2 DIABETES MELLITUS WITHOUT COMPLICATIONS Qualifiers: Diabetes mellitus type: type 2 Diabetes mellitus usp insulin use: without usp use Diabetes mellitus complication status: without complication Qualified Code(s): E11.9 - Type 2 diabetes mellitus without complications (3) HTN (hypertension) Code(s): I10 - ESSENTIAL (PRIMARY) HYPERTENSION Qualifiers: Hypertension type: essential hypertension Qualified Code(s): I10 - Essential (primary) hypertension (4) Hyperlipidemia Code(s): E78.5 - HYPERLIPIDEMIA, UNSPECIFIED Qualifiers: Hyperlipidemia type: pure hypercholesterolemia Qualified Code(s): E78.00 - Pure hypercholesterolemia, unspecified; E78.0 - Pure hypercholesterolemia (5) Atrial fibrillation Code(s): I48.91 - UNSPECIFIED ATRIAL FIBRILLATION Qualifiers: Atrial fibrillation type: paroxysmal Qualified Code(s): I48.0 - Paroxysmal atrial fibrillation (6) COPD (chronic obstructive pulmonary disease) Code(s): J44.9 - CHRONIC OBSTRUCTIVE PULMONARY DISEASE, UNSPECIFIED (7) CAD (coronary artery disease) Code(s): I25.10 - ATHSCL HEART DISEASE OF [place] CORONARY ARTERY W/O ANG PCTRS (8) Chronic respiratory failure with hypoxia Code(s): J96.11 - CHRONIC RESPIRATORY FAILURE WITH HYPOXIA Assessment/Plan (1) Acute on chronic diastolic (congestive) heart failure Assessment/Plan: -improving -cardiology following and case discussed -lasix 40mg Iv daily Code(s): I50.33 - ACUTE ON CHRONIC DIASTOLIC (CONGESTIVE) HEART FAILURE (2) Diabetes mellitus Assessment/Plan: -diabetic diet -hyperglycemia secondary to steroids -will change levemir to 15 units bid since having particularly high glucose levels Code(s): E11.9 - TYPE 2 DIABETES MELLITUS WITHOUT COMPLICATIONS Qualifiers: Diabetes mellitus type: type 2 Diabetes mellitus ocean transportation intermediary insulin use: without usp use Diabetes mellitus complication status: without complication Qualified Code(s): E11.9 - Type 2 diabetes mellitus without complications (3) HTN (hypertension) Assessment/Plan: -continue toprol xl and lasix Code(s): I10 - ESSENTIAL (PRIMARY) HYPERTENSION Qualifiers: Hypertension type: essential hypertension Qualified Code(s): I10 - Essential (primary) hypertension (4) Hyperlipidemia Assessment/Plan: -continue statin Code(s): E78.5 - HYPERLIPIDEMIA, UNSPECIFIED Qualifiers: Hyperlipidemia type: pure hypercholesterolemia Qualified Code(s): E78.00 - Pure hypercholesterolemia, unspecified; E78.0 - Pure hypercholesterolemia (5) Atrial fibrillation Assessment/Plan: -in sinus rhythm on exam -continue eliquis -continue toprol xl Code(s): I48.91 - UNSPECIFIED ATRIAL FIBRILLATION Qualifiers: Atrial fibrillation type: paroxysmal Qualified Code(s): I48.0 - Paroxysmal atrial fibrillation (6) COPD (chronic obstructive pulmonary disease) Assessment/Plan: -some wheezing today -pulmonary following -continue duoneb and solumedrol Code(s): J44.9 - CHRONIC OBSTRUCTIVE PULMONARY DISEASE, UNSPECIFIED (7) CAD (coronary artery disease) Assessment/Plan: -quiescent -continue toprol xl Code(s): I25.10 - ATHSCL HEART DISEASE OF [place] CORONARY ARTERY W/O ANG PCTRS (8) Chronic respiratory failure with hypoxia Assessment/Plan: -continue oxygen support -on oxygen at home [id number] Code(s): J96.11 - CHRONIC RESPIRATORY FAILURE WITH HYPOXIA (9) Tremors -was concerned for possible CVA -MRI reviewed by neurology, no acute change -EEG ordered -currently asymptomatic
--- NOTE | 2017-10-31 13:56 | PN ---
Progress Note, Physician History of Present Illness: PULMONARY ALERT,ON NASAL CANNULA,-RESP DISTRESS - Current Medication List Current Medications: Active Medications Albuterol Sulfate (Ventolin 0.083% Nebulizer Soln -) 1 amp NEB Q4H PRN PRN Reason: SHORT OF BREATH/WHEEZING Albuterol/Ipratropium (Duoneb -) 1 amp NEB RQID [facility] Last Admin: 10/31/17 11:03 Dose: 1 amp Apixaban (Eliquis -) 5 mg PO BID [facility] Last Admin: 10/31/17 09:03 Dose: 5 mg Atorvastatin Calcium (Lipitor -) 40 mg PO HS [facility] Last Admin: 10/30/17 22:50 Dose: 40 mg Furosemide (Lasix Injection -) 40 mg IVPUSH DAILY [facility] Last Admin: 10/31/17 09:02 Dose: 40 mg Insulin Aspart (Novolog Vial Sliding Scale -) 1 vial SQ ACHS [facility]; Protocol Last Admin: 10/31/17 11:59 Dose: Not Given Insulin Detemir (Levemir Vial) 15 units SQ BID@0700,2200 [facility] Levothyroxine Sodium (Synthroid -) 25 mcg PO DAILY@0700 [facility] Last Admin: 10/31/17 06:20 Dose: 25 mcg Methylprednisolone Sodium Succinate (Solu-Medrol -) 60 mg IVPUSH Q6H-IV [facility] Last Admin: 10/31/17 08:34 Dose: 60 mg Metoprolol Succinate (Toprol Xl -) 25 mg PO DAILY [facility] Last Admin: 10/31/17 09:03 Dose: 25 mg Pantoprazole Sodium (Protonix -) 40 mg PO DAILY [facility] Last Admin: 10/31/17 09:02 Dose: 40 mg - Objective Vital Signs: Vital Signs Temperature 97.7 F 10/31/17 10:00 Pulse Rate 71 10/31/17 10:00 Respiratory Rate 20 10/31/17 10:00 Blood Pressure 142/68 10/31/17 10:00 O2 Sat by Pulse Oximetry (%) 98 10/31/17 07:19 Constitutional: Yes: Well Nourished, Calm Eyes: Yes: WNL HENT: Yes: WNL Cardiovascular: Yes: Pulse Irregular, S1, S2 Respiratory: Yes: Rales (BILATERAL CRACKLES) Gastrointestinal: Yes: Normal Bowel Sounds, Soft Extremities: Yes: WNL Edema: Yes Labs: CBC, BMP 10/31/17 06:00 10/31/17 06:00 INR, PTT INR 1.33 (0.82-1.09) H D 10/31/17 06:00 Problem List - Problems (1) Acute on chronic diastolic (congestive) heart failure Code(s): I50.33 - ACUTE ON CHRONIC DIASTOLIC (CONGESTIVE) HEART FAILURE (2) Atrial fibrillation Code(s): I48.91 - UNSPECIFIED ATRIAL FIBRILLATION Qualifiers: Atrial fibrillation type: paroxysmal Qualified Code(s): I48.0 - Paroxysmal atrial fibrillation (3) CAD (coronary artery disease) Code(s): I25.10 - ATHSCL HEART DISEASE OF [place] CORONARY ARTERY W/O ANG PCTRS (4) COPD (chronic obstructive pulmonary disease) Code(s): J44.9 - CHRONIC OBSTRUCTIVE PULMONARY DISEASE, UNSPECIFIED (5) Chronic respiratory failure with hypoxia Code(s): J96.11 - CHRONIC RESPIRATORY FAILURE WITH HYPOXIA (6) ASHD (arteriosclerotic heart disease) Code(s): I25.10 - ATHSCL HEART DISEASE OF [place] CORONARY ARTERY W/O ANG PCTRS (7) Acute on chronic respiratory failure with hypoxia and hypercapnia Code(s): J96.21 - ACUTE AND CHRONIC RESPIRATORY FAILURE WITH HYPOXIA; J96.22 - ACUTE AND CHRONIC RESPIRATORY FAILURE WITH HYPERCAPNIA (8) CHF exacerbation Code(s): I50.9 - HEART FAILURE, UNSPECIFIED Qualifiers: Heart failure type: unspecified Qualified Code(s): I50.9 - Heart failure, unspecified (9) Diabetes mellitus Code(s): E11.9 - TYPE 2 DIABETES MELLITUS WITHOUT COMPLICATIONS Qualifiers: Diabetes mellitus type: type 2 Diabetes mellitus group home insulin use: without termite technician use Diabetes mellitus complication status: without complication Qualified Code(s): E11.9 - Type 2 diabetes mellitus without complications (10) HTN (hypertension) Code(s): I10 - ESSENTIAL (PRIMARY) HYPERTENSION Qualifiers: Hypertension type: essential hypertension Qualified Code(s): I10 - Essential (primary) hypertension (11) History of coronary artery stent placement Code(s): Z95.5 - PRESENCE OF CORONARY ANGIOPLASTY IMPLANT AND GRAFT (12) Paroxysmal atrial fibrillation with rapid ventricular response Code(s): I48.0 - PAROXYSMAL ATRIAL FIBRILLATION (13) Respiratory distress Code(s): R06.00 - DYSPNEA, UNSPECIFIED Assessment/Plan IMP ACUTE IN CHRONIC HYPOXEMIC/HYPERCAPNEIC RESPIRATORY FAILURE IMPROVED ACUTE ON CHRONIC CHF PAF ASHD S/P AR ,S/P STENTS COPD O2 DEPENDENT PULMONARY HTN IDDM HTN HLD LIKELY OSAS PLAN LASIX IV NIPPV O2 INHALED BRONCHODILATORS MEDROL TAPER STRICT I+Os DAILY WT F/U CHEST X-RAYS SLEEP STUDIES OUTPATIENT DR CAAL Problem List - Problems (1) Acute on chronic diastolic (congestive) heart failure Code(s): I50.33 - ACUTE ON CHRONIC DIASTOLIC (CONGESTIVE) HEART FAILURE (2) Atrial fibrillation Code(s): I48.91 - UNSPECIFIED ATRIAL FIBRILLATION Qualifiers: Atrial fibrillation type: paroxysmal Qualified Code(s): I48.0 - Paroxysmal atrial fibrillation (3) CAD (coronary artery disease) Code(s): I25.10 - ATHSCL HEART DISEASE OF [place] CORONARY ARTERY W/O ANG PCTRS (4) COPD (chronic obstructive pulmonary disease) Code(s): J44.9 - CHRONIC OBSTRUCTIVE PULMONARY DISEASE, UNSPECIFIED (5) Chronic respiratory failure with hypoxia Code(s): J96.11 - CHRONIC RESPIRATORY FAILURE WITH HYPOXIA (6) ASHD (arteriosclerotic heart disease) Code(s): I25.10 - ATHSCL HEART DISEASE OF [place] CORONARY ARTERY W/O ANG PCTRS (7) Acute on chronic respiratory failure with hypoxia and hypercapnia Code(s): J96.21 - ACUTE AND CHRONIC RESPIRATORY FAILURE WITH HYPOXIA; J96.22 - ACUTE AND CHRONIC RESPIRATORY FAILURE WITH HYPERCAPNIA (8) CHF exacerbation Code(s): I50.9 - HEART FAILURE, UNSPECIFIED Qualifiers: Heart failure type: unspecified Qualified Code(s): I50.9 - Heart failure, unspecified (9) Diabetes mellitus Code(s): E11.9 - TYPE 2 DIABETES MELLITUS WITHOUT COMPLICATIONS Qualifiers: Diabetes mellitus type: type 2 Diabetes mellitus group home insulin use: without group home use Diabetes mellitus complication status: without complication Qualified Code(s): E11.9 - Type 2 diabetes mellitus without complications (10) HTN (hypertension) Code(s): I10 - ESSENTIAL (PRIMARY) HYPERTENSION Qualifiers: Hypertension type: essential hypertension Qualified Code(s): I10 - Essential (primary) hypertension (11) History of coronary artery stent placement Code(s): Z95.5 - PRESENCE OF CORONARY ANGIOPLASTY IMPLANT AND GRAFT (12) Paroxysmal atrial fibrillation with rapid ventricular response Code(s): I48.0 - PAROXYSMAL ATRIAL FIBRILLATION (13) Respiratory distress Code(s): R06.00 - DYSPNEA, UNSPECIFIED
[2017-10-31] MEDS ORDERED: levETIRAcetam 500 MG TABLET (FP) PO ONE ×2 (15:15→15:45)
[2017-10-31] MEDS: methylPREDNISolone NA SUCC 40 MG/1 ML VIAL IVPUSH SCH (17:10)
[2017-10-31] MEDS: ATORVASTATIN CA 40 MG TABLET (FP) PO SCH (21:57)
[2017-10-31] MEDS: INSULIN (LEVEMIR) 100 UNITS/ML UNITS SQ SCH (21:59)
[2017-11-01] MEDS: methylPREDNISolone NA SUCC 40 MG/1 ML VIAL IVPUSH SCH ×3 (02:00→17:07)
[2017-11-01] MEDS: INSULIN (LEVEMIR) 100 UNITS/ML UNITS SQ SCH ×2 (06:37→21:06)
[2017-11-01] MEDS: INSULIN SLIDING SCALE (NOVOLOG) 1 VIAL SQ SCH ×4 (06:38→21:07)
[2017-11-01] MEDS: LEVOTHYROXINE NA 25 MCG TABLET (FP) PO SCH (06:38)
[2017-11-01 07:36] LABS: BASO % 1.4 % (0-2.0); EOS % 0.6 % (0-4.5); HEMATOCRIT 35.1 % (32.4-45.2); HEMOGLOBIN 10.8 GM/dL (10.7-15.3); LYMPH % 4.1 % (8-40); MCH 20.6 pg (25.7-33.7); MCHC 30.9 g/dl (32.0-36.0); MEAN CELL VOLUME 66.5 fl (80-96); MEAN PLT VOLUME 8.3 fl (7.5-11.1); MONO % 1.7 % (3.8-10.2); NEUT % 92.2 % (42.8-82.8); PLATELET COUNT 227 K/MM3 (134-434); RBC 5.28 M/mm3 (3.60-5.2); RDW 17.3 % (11.6-15.6)
[2017-11-01] MEDS ORDERED: INSULIN (NOVOLOG) ASPART 100 UNITS/ML 10ML VIAL ONE ×2 (07:58→11:33)
[2017-11-01 08:03] LABS: ANION GAP 6 (8-16); BLOOD UREA NITROGEN 45 mg/dL (7-18); CALCIUM 8.4 mg/dL (8.5-10.1); CHLORIDE 93 mmol/L (98-107); CO2 40 mmol/L (21-32); MAGNESIUM 2.2 mg/dL (1.8-2.4); POTASSIUM 4.4 mmol/L (3.5-5.1); SODIUM 139 mmol/L (136-145)
[2017-11-01 08:04] LABS: PHOSPHOROUS 2.8 mg/dL (2.5-4.9)
[2017-11-01] MEDS: ALBUTEROL SO4 2.5/IPRATROPIUM 0.5 INH SOL 3 ML VIAL.NEB. NEB SCH ×4 (08:08→20:13)
[2017-11-01] MEDS ORDERED: INSULIN (LEVEMIR) 100 UNITS/ML UNITS SQ SCH (08:17)
--- NOTE | 2017-11-01 08:23 | PN ---
Progress Note, Physician Chief Complaint: Feels improved less SOB FS are poorly controlled History of Present Illness: year old female with a significant past medical history of HTN, HLD, CHF, CAD d /p stent , [place], COPD, T2DM who presented to the ED from her PCP office for low oxygen saturation in office. Her room air sat was reportedly 80;elevated CO2 and BNP consistent with Hypercapnia - Current Medication List Current Medications: Active Medications Albuterol Sulfate (Ventolin 0.083% Nebulizer Soln -) 1 amp NEB Q4H PRN PRN Reason: SHORT OF BREATH/WHEEZING Albuterol/Ipratropium (Duoneb -) 1 amp NEB RQID [facility] Last Admin: 10/31/17 21:17 Dose: 1 amp Apixaban (Eliquis -) 5 mg PO BID [facility] Last Admin: 10/31/17 21:57 Dose: 5 mg Atorvastatin Calcium (Lipitor -) 40 mg PO HS [facility] Last Admin: 10/31/17 21:57 Dose: 40 mg Furosemide (Lasix Injection -) 40 mg IVPUSH DAILY [facility] Last Admin: 10/31/17 09:02 Dose: 40 mg Insulin Aspart (Novolog Vial Sliding Scale -) 1 vial SQ ACHS [facility]; Protocol Last Admin: 11/01/17 06:38 Dose: 6 units Insulin Detemir (Levemir Vial) 18 units SQ BID@0700,2200 [facility] Levetiracetam (Keppra -) 500 mg PO BID [facility] Levothyroxine Sodium (Synthroid -) 25 mcg PO DAILY@0700 [facility] Last Admin: 11/01/17 06:38 Dose: 25 mcg Methylprednisolone Sodium Succinate (Solu-Medrol -) 40 mg IVPUSH Q8H-IV [facility] Last Admin: 11/01/17 02:00 Dose: 40 mg Metoprolol Succinate (Toprol Xl -) 25 mg PO DAILY [facility] Last Admin: 10/31/17 09:03 Dose: 25 mg Pantoprazole Sodium (Protonix -) 40 mg PO DAILY [facility] Last Admin: 10/31/17 09:02 Dose: 40 mg - Objective Vital Signs: Vital Signs Temperature 98.1 F 11/01/17 06:00 Pulse Rate 67 11/01/17 06:00 Respiratory Rate 10 L 11/01/17 06:00 Blood Pressure 142/59 11/01/17 06:00 O2 Sat by Pulse Oximetry (%) 99 10/31/17 22:03 Constitutional: Well Nourished, No Distress HEENT: Yes: Conjunctiva Clear, EOM Intact, Atraumatic, Normocephalic. No: Drooling Neck: Yes: Supple, Trachea Midline. No: Decreased ROM, Lymphadenopathy Cardiovascular: S1, S2. No: JVD, Murmur Respiratory:Regular, Rales Gastrointestinal: Yes: Normal Bowel Sounds, Soft Extremities: No: Calf Tenderness, Edema RUE: 1+, LLE: 1+ Peripheral Pulses: Left Doralis Pedis: 1+, Right Dorsalis Pedis: 1+ Neurological: Yes: Alert, Oriented, Motor Strength: WNL, LUE, LLE Labs: CBC, BMP 11/01/17 06:35 INR, PTT INR 1.33 (0.82-1.09) H D 10/31/17 06:00 Problem List - Problems (1) Acute on chronic respiratory failure with hypoxia and hypercapnia Assessment/Plan: Due to BILL and COPD exacerabtion improving with IV steroids and Nebs Code(s): J96.21 - ACUTE AND CHRONIC RESPIRATORY FAILURE WITH HYPOXIA; J96.22 - ACUTE AND CHRONIC RESPIRATORY FAILURE WITH HYPERCAPNIA (2) Acute on chronic diastolic (congestive) heart failure Assessment/Plan: Cont Current management improving Code(s): I50.33 - ACUTE ON CHRONIC DIASTOLIC (CONGESTIVE) HEART FAILURE (3) Atrial fibrillation Assessment/Plan: Rate controlled on apxiban Code(s): I48.91 - UNSPECIFIED ATRIAL FIBRILLATION Qualifiers: Atrial fibrillation type: paroxysmal Qualified Code(s): I48.0 - Paroxysmal atrial fibrillation (4) CAD (coronary artery disease) Assessment/Plan: S/O stent no active issue Code(s): I25.10 - ATHSCL HEART DISEASE OF [place] CORONARY ARTERY W/O ANG PCTRS (5) HTN (hypertension) Assessment/Plan: Well controlled cont all hpme meds Code(s): I10 - ESSENTIAL (PRIMARY) HYPERTENSION Qualifiers: Hypertension type: essential hypertension Qualified Code(s): I10 - Essential (primary) hypertension (6) Obesity (BMI 30-39.9) Assessment/Plan: Nutrition consult Code(s): E66.9 - OBESITY, UNSPECIFIED (7) Hyperglycemia due to type 2 diabetes mellitus Assessment/Plan: Worsened in the setting of Steroid therapy optimize Glycemic control increase Lantus Levimir units BID Code(s): E11.65 - TYPE 2 DIABETES MELLITUS WITH HYPERGLYCEMIA (8) Seizure Assessment/Plan: On Keppra evaluated by Neurology no new changes in MRI Code(s): R56.9 - UNSPECIFIED CONVULSIONS
--- NOTE | 2017-11-01 08:28 | PN ---
Progress Note, Physician Chief Complaint: sob, resp failure History of Present Illness: on NC only feels well. denies sob. no cp, palpit, leg swelling - Current Medication List Current Medications: Active Medications Albuterol Sulfate (Ventolin 0.083% Nebulizer Soln -) 1 amp NEB Q4H PRN PRN Reason: SHORT OF BREATH/WHEEZING Albuterol/Ipratropium (Duoneb -) 1 amp NEB RQID [facility] Last Admin: 10/31/17 21:17 Dose: 1 amp Apixaban (Eliquis -) 5 mg PO BID [facility] Last Admin: 10/31/17 21:57 Dose: 5 mg Atorvastatin Calcium (Lipitor -) 40 mg PO HS [facility] Last Admin: 10/31/17 21:57 Dose: 40 mg Furosemide (Lasix Injection -) 40 mg IVPUSH DAILY [facility] Last Admin: 10/31/17 09:02 Dose: 40 mg Insulin Aspart (Novolog Vial Sliding Scale -) 1 vial SQ [facility]; Protocol Last Admin: 11/01/17 06:38 Dose: 6 units Insulin Detemir (Levemir Vial) 18 units SQ BID@0700,2200 [facility] Levetiracetam (Keppra -) 500 mg PO BID [facility] Levothyroxine Sodium (Synthroid -) 25 mcg PO DAILY@0700 [facility] Last Admin: 11/01/17 06:38 Dose: 25 mcg Methylprednisolone Sodium Succinate (Solu-Medrol -) 40 mg IVPUSH Q8H-IV [facility] Last Admin: 11/01/17 02:00 Dose: 40 mg Metoprolol Succinate (Toprol Xl -) 25 mg PO DAILY [facility] Last Admin: 10/31/17 09:03 Dose: 25 mg Pantoprazole Sodium (Protonix -) 40 mg PO DAILY [facility] Last Admin: 10/31/17 09:02 Dose: 40 mg - Objective Vital Signs: Vital Signs Temperature 98.1 F 11/01/17 06:00 Pulse Rate 67 11/01/17 06:00 Respiratory Rate 10 L 11/01/17 06:00 Blood Pressure 142/59 11/01/17 06:00 O2 Sat by Pulse Oximetry (%) 99 10/31/17 22:03 Constitutional: Yes: Well Nourished, No Distress, Obese Cardiovascular: Yes: Regular Rate and Rhythm, S1, S2. No: JVD, Gallop, Murmur Respiratory: Yes: Regular, Wheezes (diffusely). No: Accessory Muscle Use, Rales Extremities: No: Cold Edema: Yes (trace ankles) Neurological: Yes: Alert. No: Seizure Psychiatric: No: Agitated Labs: CBC, BMP 11/01/17 06:35 INR, PTT INR 1.33 (0.82-1.09) H D 10/31/17 06:00 Assessment/Plan cxr: diffuse incr markings, bilat effusions ecg: sr, lvh with repol changes LHC/PCI 10/2013: mid LAD and Diag YURIY PCI, residual prox LCX 90-95% calcific and only 30-50% dist LM disease Echo 04/2017: mild dec lvef, apical hk. nl rv. mod mr, mild-mod tr, mild as, rvsp 40-50 Echo 10/2013 : mildly reduced LVF, apical severe HK, anterior mod HK, mild to mod MR, mild to mod TR, RVSP 50-60 tele: NSR, NSVT run x6 beats a/p: 82 yr old lady with known CAD/pci, chf, HTN, HPL, DM, pad, obesity, pafib (dx 05/2017 when admitted for copd) sent from pmd for low 02 sat acute hypoxic resp failure, acute mixed diastolic/systolic CHF, acute exacerbation copd: -chronic, mild LV hypokinesis -here with low o2 sat (85%) -bnp 6K, below prior range (7K-18K) -CXR with chronic very prominent markings diffusely since 05/15--not significantly changed presently. ? incr in prior bibasilar opacities c/w incr effusions. -troponins negative, no ischemic ecg changes -on lasix 40 po daily at home. being given trial of 40 IV qd here. -last scale wt 216 when here 07/13. no wt recorded here, will obtain. -11/01: wt down 3 lbs here with diuresis (lasix 40 iv qd). bun rising ? steroid effect. creat stable. resp status/sx's much improved. -rec continue lasix 40 iv qd until wt stops declining, or creat starts rising -recent echo with stable findings vs prior, no stigmata of severe pulm HTN noted on that study -copd tx per pulmonary nurse consultant -bipap, supplemental O2 as doing CAD s/p PCI: -pt s/p rota YURIY PCI of mid LAD and Diag 2013, residual prox LCX 90-95% calcific --medically managed -Has been stable, no anginal sxs. -atypical cp symptoms reported here. enzymes neg, no acute isch ecg. -plan nuclear stress test after acute hypoxia issues resolve. Cont bb, statin, ac (no ASA). HTN: -bp controlled -same meds pafib: -in sinus here. cont toprol -cont eliquis 5 bid for AC PAD: -known occluded R SFA on 2014 periph angiogram, with dz on L below knee -? if any interventions done -routine outpt f/u slurred speech, facial droop, twitching: -resolved, being evaluated by neuro
[2017-11-01 09:09] LABS: GLUCOSE,RANDOM 312 mg/dL (74-106)
[2017-11-01] MEDS: APIXABAN 5 MG TABLET PO SCH ×2 (09:20→21:06)
[2017-11-01] MEDS: metoPROLOL SUCCINATE 25 MG TAB.SR.24H (FP) PO SCH (09:20)
[2017-11-01] MEDS: levETIRAcetam 500 MG TABLET (FP) PO SCH ×2 (09:20→21:06)
[2017-11-01] MEDS: FUROSEMIDE 40 MG/4 ML INJECTABLE VIAL IVPUSH SCH (09:20)
[2017-11-01] MEDS: PANTOPRAZOLE 40 MG TABLET (FP) PO SCH (09:20)
[2017-11-01] MEDS ORDERED: levETIRAcetam 500 MG TABLET (FP) PO SCH (10:00)
[2017-11-01 10:08] LABS: ANISOCYTOSIS 3+; MACROCYTOSIS 0; PLATELET ESTIMATE NORMAL
[2017-11-01] MEDS ORDERED: INSULIN (LEVEMIR) 100 UNITS/ML UNITS SQ ONE ×2 (11:33→12:00)
--- NOTE | 2017-11-01 12:31 | PN ---
Progress Note (short form) - Note Progress Note: Neurology HISTORY OF PRESENT ILLNESS: 82 year old female with a significant past medical history of HTN, HLD, CHF, CAD , [place], COPD, DM who presented to the ED from her PCP, Dr. Fournier, for low oxygen saturation in office. Her room air saturation was reportedly 80; whereas typically around 90. She had SOB with exertion and intermittent brief left sided stabbing chest pain for 5 days per notes. She reported that she ran out of some of her medications approximately 2 weeks ago including her lasix. She was admitted for further respiratory management. Only 10/30, had episode of left- sided facial droop with slurred speech, code marjorie was called. Patient had CT head which did not show acute changes. She does have Afib and on Eliquis. Spoke to hospitalist at the time, not TPA candidate, as she is on AC (eliquis) for Afib. After imaging, reportedly stabilized and did not have slurred speech. MRI brain completed and without acute changes. 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 Episode may be recredesence from prior infarct during acute illness. Carotids also completed and reviewed and 50- 69% on the R, moderate plaques on L. This Am, not slurring speech, calm and cooperative at bedside. No longer facial twitching with Keppra on board. Active Medications Albuterol Sulfate (Ventolin 0.083% Nebulizer Soln -) 1 amp NEB Q4H PRN PRN Reason: SHORT OF BREATH/WHEEZING Albuterol/Ipratropium (Duoneb -) 1 amp NEB RQID [facility] Last Admin: 11/01/17 08:08 Dose: 1 amp Apixaban (Eliquis -) 5 mg PO BID [facility] Last Admin: 11/01/17 09:20 Dose: 5 mg Atorvastatin Calcium (Lipitor -) 40 mg PO HS [facility] Last Admin: 10/31/17 21:57 Dose: 40 mg Furosemide (Lasix Injection -) 40 mg IVPUSH DAILY [facility] Last Admin: 11/01/17 09:20 Dose: 40 mg Insulin Aspart (Novolog Vial Sliding Scale -) 1 vial SQ [facility]; Protocol Last Admin: 11/01/17 12:07 Dose: 10 units Insulin Detemir (Levemir Vial) 18 units SQ BID@0700,2200 [facility] Levetiracetam (Keppra -) 500 mg PO BID [facility] Last Admin: 11/01/17 09:20 Dose: 500 mg Levothyroxine Sodium (Synthroid -) 25 mcg PO DAILY@0700 [facility] Last Admin: 11/01/17 06:38 Dose: 25 mcg Methylprednisolone Sodium Succinate (Solu-Medrol -) 40 mg IVPUSH Q8H-IV [facility] Last Admin: 11/01/17 09:20 Dose: 40 mg Metoprolol Succinate (Toprol Xl -) 25 mg PO DAILY [facility] Last Admin: 11/01/17 09:20 Dose: 25 mg Pantoprazole Sodium (Protonix -) 40 mg PO DAILY [facility] Last Admin: 11/01/17 09:20 Dose: 40 mg PHYSICAL EXAMINATION Vital Signs Period Temp Pulse Resp BP Sys/Gardner Pulse Ox Last 24 Hr 97.9 F-98.4 F 65-73 10-20 121-147/50-70 99-99 GENERAL: Awake, alert, and fully oriented, in no acute distress. HEAD: Normal with no signs of trauma. EYES: Pupils equal, round and reactive to light, extraocular movements intact, sclera anicteric, conjunctiva clear. No lid lag. EARS, NOSE, THROAT: Ears normal, nares patent, oropharynx clear without exudates. Moist mucous membranes. NECK: Normal range of motion, supple without lymphadenopathy, JVD, or masses. LUNGS: Crackles bilateral bases, no wheezing. No accessory muscle use. HEART: Regular rate and rhythm, normal S1 and S2 without murmur, rub or gallop. ABDOMEN: Soft, nontender, not distended, normoactive bowel sounds, no guarding, no rebound, no masses. No hepatomegaly or splenomegaly. MUSCULOSKELETAL: Normal range of motion at all joints. No bony deformities or tenderness. No CVA tenderness. UPPER EXTREMITIES: 2+ pulses, warm, well-perfused. No cyanosis. No clubbing. No peripheral edema. LOWER EXTREMITIES: 2+ pulses, warm, well-perfused. No calf tenderness. 2+ pitting peripheral edema. NEUROLOGICAL: Slight L facial, otherwise CN intact, moving all extremities equally, not participating in full confrontation testing, sensory intact PSYCHIATRIC: Cooperative. Good eye contact. Appropriate mood and affect. SKIN: Warm, dry, normal turgor, no rashes or lesions noted, normal capillary refill. CBCD WBC 5.0 K/mm3 (4.0-10.0) 11/01/17 06:35 RBC 5.28 M/mm3 (3.60-5.2) H 11/01/17 06:35 Hgb 10.8 GM/dL (10.7-15.3) 11/01/17 06:35 Hct 35.1 % (32.4-45.2) 11/01/17 06:35 MCV 66.5 fl (80-96) L 11/01/17 06:35 MCHC 30.9 g/dl (32.0-36.0) L 11/01/17 06:35 RDW 17.3 % (11.6-15.6) H 11/01/17 06:35 Plt Count 227 K/MM3 (134-434) 11/01/17 06:35 MPV 8.3 fl (7.5-11.1) 11/01/17 06:35 CMP Sodium 139 mmol/L (136-145) 11/01/17 06:35 Potassium 4.4 mmol/L (3.5-5.1) 11/01/17 06:35 Chloride 93 mmol/L (98-107) L 11/01/17 06:35 Carbon Dioxide 40 mmol/L (21-32) H 11/01/17 06:35 Anion Gap 6 (8-16) L 11/01/17 06:35 BUN 45 mg/dL (7-18) H 11/01/17 06:35 Creatinine 1.0 mg/dL (0.55-1.02) 11/01/17 06:35 Creat Clearance w eGFR 53.21 (>60) 11/01/17 06:35 Calcium 8.4 mg/dL (8.5-10.1) L 11/01/17 06:35 Total Bilirubin 1.2 mg/dL (0.2-1.0) H 10/27/17 16:43 AST 20 U/L (15-37) 10/27/17 16:43 ALT 20 U/L (12-78) 10/27/17 16:43 Alkaline Phosphatase 87 U/L (45-117) 10/27/17 16:43 Total Protein 7.2 g/dl (6.4-8.2) 10/27/17 16:43 Albumin 3.3 g/dl (3.4-5.0) L 10/27/17 16:[address] head reviewed Carotid Doppler reviewed MRI brain reviewed ASSESSMENT/PLAN: 82 year old female with a significant past medical history of HTN, HLD, CHF, CAD , [place], COPD, DM who presented to the ED from her PCP, Dr. Fournier, for low oxygen saturation in office. Her room air saturation was reportedly 80; whereas typically around 90. She had SOB with exertion and intermittent brief left sided stabbing chest pain for 5 days per notes. She reported that she ran out of some of her medications approximately 2 weeks ago including her lasix. She was admitted for further respiratory management. Only 10/30, had episode of left- sided facial droop with slurred speech, code marjorie was called. Patient had CT head which did not show acute changes. She does have Afib and on Eliquis. Spoke to hospitalist at the time, not TPA candidate, as she is on AC (eliquis) for Afib. After imaging, reportedly stabilized and did not have slurred speech. MRI brain completed and without acute changes. 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 Episode may be recredesence from prior infarct during acute illness. Carotids also completed and reviewed and 50- 69% on the R, moderate plaques on L. This Am, not slurring speech, calm and cooperative at bedside. Keppra ordered for twitching activity, discussed with nurse, no longer occuring on Keppra. Continue neuro monitoring. Medical optimization of CHF. Monitor blood pressure, recommend < 140/90 for now. Continue eliqus for Afib. Fall precautions.
--- NOTE | 2017-11-01 13:11 | PN ---
Progress Note (short form) - Note Progress Note: Awake and alert on NC O2. No acute events overnight. Overall improving. Intake & Output 10/29/17 10/30/17 10/31/17 11/01/17 23:59 23:59 23:59 23:59 Intake Total 380 760 450 100 Balance 380 760 450 100 Weight 212 lb 211 lb 6.4 oz 209 lb 12.8 oz Last Vital Signs Temp Pulse Resp BP Pulse Ox 98.4 F 65 18 147/70 99 11/01/17 10:00 11/01/17 10:00 11/01/17 10:00 11/01/17 10:00 11/01/17 09:00 Active Medications Albuterol Sulfate (Ventolin 0.083% Nebulizer Soln -) 1 amp NEB Q4H PRN PRN Reason: SHORT OF BREATH/WHEEZING Albuterol/Ipratropium (Duoneb -) 1 amp NEB RQID [facility] Last Admin: 11/01/17 08:08 Dose: 1 amp Apixaban (Eliquis -) 5 mg PO BID [facility] Last Admin: 11/01/17 09:20 Dose: 5 mg Atorvastatin Calcium (Lipitor -) 40 mg PO HS [facility] Last Admin: 10/31/17 21:57 Dose: 40 mg Furosemide (Lasix Injection -) 40 mg IVPUSH DAILY [facility] Last Admin: 11/01/17 09:20 Dose: 40 mg Insulin Aspart (Novolog Vial Sliding Scale -) 1 vial SQ ACHS [facility]; Protocol Last Admin: 11/01/17 12:07 Dose: 10 units Insulin Detemir (Levemir Vial) 18 units SQ BID@0700,2200 [facility] Levetiracetam (Keppra -) 500 mg PO BID [facility] Last Admin: 11/01/17 09:20 Dose: 500 mg Levothyroxine Sodium (Synthroid -) 25 mcg PO DAILY@0700 [facility] Last Admin: 11/01/17 06:38 Dose: 25 mcg Methylprednisolone Sodium Succinate (Solu-Medrol -) 40 mg IVPUSH Q8H-IV [facility] Last Admin: 11/01/17 09:20 Dose: 40 mg Metoprolol Succinate (Toprol Xl -) 25 mg PO DAILY [facility] Last Admin: 11/01/17 09:20 Dose: 25 mg Pantoprazole Sodium (Protonix -) 40 mg PO DAILY [facility] Last Admin: 11/01/17 09:20 Dose: 40 mg Constitutional: Yes: NAD Eyes: Yes: WNL HENT: Yes: WNL Cardiovascular: Yes: Pulse Irregular, S1, S2 Respiratory: Yes: Bibasilar rhonchi, no wheeze Gastrointestinal: Yes: Normal Bowel Sounds, Soft Extremities: Yes: WNL Edema: Yes Labs: Laboratory Results - last 24 hr 10/31/17 10/31/17 11/01/17 11:12 21:50 05:50 WBC RBC Hgb Hct MCV MCH MCHC RDW Plt Count MPV Absolute Neuts (auto) Neutrophils % Neutrophils % (Manual) Band Neutrophils % Lymphocytes % Lymphocytes % (Manual) Monocytes % Monocytes % (Manual) Eosinophils % Eosinophils % (Manual) Basophils % Basophils % (Manual) Myelocytes % (Man) Promyelocytes % (Man) Blast Cells % (Manual) Nucleated RBC % Metamyelocytes Hypochromia Platelet Estimate Polychromasia Poikilocytosis Anisocytosis Microcytosis Macrocytosis Sodium Potassium Chloride Carbon Dioxide Anion Gap BUN Creatinine Creat Clearance w eGFR POC Glucometer 513 335 Random Glucose 407 H* Calcium Phosphorus Magnesium 11/01/17 11/01/17 11/01/17 06:35 06:35 11:06 WBC 5.0 RBC 5.28 H Hgb 10.8 Hct 35.1 MCV 66.5 L MCH 20.6 L MCHC 30.9 L RDW 17.3 H Plt Count 227 MPV 8.3 Absolute Neuts (auto) 4.6 Neutrophils % 92.2 H Neutrophils % (Manual) 94.4 H Band Neutrophils % 0.9 Lymphocytes % 4.1 L Lymphocytes % (Manual) 4.7 L D Monocytes % 1.7 L Monocytes % (Manual) 0 L D Eosinophils % 0.6 D Eosinophils % (Manual) 0.0 Basophils % 1.4 D Basophils % (Manual) 0.0 Myelocytes % (Man) 0 Promyelocytes % (Man) 0 Blast Cells % (Manual) 0 Nucleated RBC % 0 Metamyelocytes 0 Hypochromia 1+ Platelet Estimate Normal Polychromasia 1+ Poikilocytosis 0 Anisocytosis 3+ Microcytosis 2+ Macrocytosis 0 Sodium 139 Potassium 4.4 Chloride 93 L Carbon Dioxide 40 H Anion Gap 6 L BUN 45 H Creatinine 1.0 Creat Clearance w eGFR 53.21 POC Glucometer 410 Random Glucose 312 H* Calcium 8.4 L Phosphorus 2.8 Magnesium 2.2 Problem List - Problems (1) Acute on chronic diastolic (congestive) heart failure Code(s): I50.33 - ACUTE ON CHRONIC DIASTOLIC (CONGESTIVE) HEART FAILURE (2) Atrial fibrillation Code(s): I48.91 - UNSPECIFIED ATRIAL FIBRILLATION Qualifiers: Atrial fibrillation type: paroxysmal Qualified Code(s): I48.0 - Paroxysmal atrial fibrillation (3) CAD (coronary artery disease) Code(s): I25.10 - ATHSCL HEART DISEASE OF [place] CORONARY ARTERY W/O ANG PCTRS (4) COPD (chronic obstructive pulmonary disease) Code(s): J44.9 - CHRONIC OBSTRUCTIVE PULMONARY DISEASE, UNSPECIFIED (5) Chronic respiratory failure with hypoxia Code(s): J96.11 - CHRONIC RESPIRATORY FAILURE WITH HYPOXIA (6) ASHD (arteriosclerotic heart disease) Code(s): I25.10 - ATHSCL HEART DISEASE OF [place] CORONARY ARTERY W/O ANG PCTRS (7) Acute on chronic respiratory failure with hypoxia and hypercapnia Code(s): J96.21 - ACUTE AND CHRONIC RESPIRATORY FAILURE WITH HYPOXIA; J96.22 - ACUTE AND CHRONIC RESPIRATORY FAILURE WITH HYPERCAPNIA (8) CHF exacerbation Code(s): I50.9 - HEART FAILURE, UNSPECIFIED Qualifiers: Heart failure type: unspecified Qualified Code(s): I50.9 - Heart failure, unspecified (9) Diabetes mellitus Code(s): E11.9 - TYPE 2 DIABETES MELLITUS WITHOUT COMPLICATIONS Qualifiers: Diabetes mellitus type: type 2 Diabetes mellitus senior living insulin use: without senior living use Diabetes mellitus complication status: without complication Qualified Code(s): E11.9 - Type 2 diabetes mellitus without complications (10) HTN (hypertension) Code(s): I10 - ESSENTIAL (PRIMARY) HYPERTENSION Qualifiers: Hypertension type: essential hypertension Qualified Code(s): I10 - Essential (primary) hypertension (11) History of coronary artery stent placement Code(s): Z95.5 - PRESENCE OF CORONARY ANGIOPLASTY IMPLANT AND GRAFT (12) Paroxysmal atrial fibrillation with rapid ventricular response Code(s): I48.0 - PAROXYSMAL ATRIAL FIBRILLATION (13) Respiratory distress Code(s): R06.00 - DYSPNEA, UNSPECIFIED Assessment/Plan IMP ACUTE IN CHRONIC HYPOXEMIC/HYPERCAPNEIC RESPIRATORY FAILURE IMPROVED ACUTE ON CHRONIC CHF PAF ASHD S/P OK ,S/P STENTS COPD O2 DEPENDENT PULMONARY HTN IDDM HTN HLD LIKELY OSAS PLAN LASIX NIPPV NEEDED O2 INHALED BRONCHODILATORS MEDROL TAPER TOMORROW STRICT I+Os DAILY WT SLEEP STUDIES OUTPATIENT DR STAHL
[2017-11-01] MEDS: ATORVASTATIN CA 40 MG TABLET (FP) PO SCH (21:06)
[2017-11-01] MEDS ORDERED: INSULIN (NOVOLOG) ASPART 100 UNITS/ML 10ML VIAL SQ ONE (22:45)
[2017-11-02] MEDS: methylPREDNISolone NA SUCC 40 MG/1 ML VIAL IVPUSH SCH ×3 (01:22→16:59)
[2017-11-02] MEDS: LEVOTHYROXINE NA 25 MCG TABLET (FP) PO SCH (06:02)
[2017-11-02] MEDS: INSULIN (LEVEMIR) 100 UNITS/ML UNITS SQ SCH ×2 (06:47→22:27)
[2017-11-02] MEDS: INSULIN SLIDING SCALE (NOVOLOG) 1 VIAL SQ SCH ×4 (06:47→22:28)
[2017-11-02 08:17] LABS: ALBUMIN 3.2 g/dl (3.4-5.0); ANION GAP 4 (8-16); BLOOD UREA NITROGEN 42 mg/dL (7-18); CALCIUM 8.4 mg/dL (8.5-10.1); CHLORIDE 93 mmol/L (98-107); CO2 44 mmol/L (21-32); GLUCOSE,RANDOM 204 mg/dL (74-106); POTASSIUM 4.4 mmol/L (3.5-5.1); SGOT/AST 15 U/L (15-37); SGPT/ALT 19 U/L (12-78); SODIUM 141 mmol/L (136-145)
[2017-11-02 08:19] LABS: ALK PHOS 69 U/L (45-117); BILIRUBIN,TOTAL 0.9 mg/dL (0.2-1.0); TOT PROT 6.9 g/dl (6.4-8.2)
[2017-11-02] MEDS: ALBUTEROL SO4 2.5/IPRATROPIUM 0.5 INH SOL 3 ML VIAL.NEB. NEB SCH ×4 (08:41→20:39)
--- NOTE | 2017-11-02 09:35 | PN ---
Progress Note (short form) - Note Progress Note: s: no cp sob palps syncope. o: Vital Signs Period Temp Pulse Resp BP Sys/Gardner Pulse Ox Last 24 Hr 97.7 F-98.6 F 64-73 18-20 108-147/42-70 99 nad no jvd rrr s1s2 no mrg mild exp wheeze, nl eff aaox3 trace le edema bl, no c/c abd nt nd pos bs no jaundice diaphoresis Current Medications Generic Name Dose Route Start Last Admin Trade Name Freq PRN Reason Stop Dose Admin Albuterol Sulfate 1 amp 10/29/17 02:18 Ventolin 0.083% Nebulizer Soln - NEB Q4H PRN SHORT OF BREATH/WHEEZING Albuterol/Ipratropium 1 amp 10/29/17 08:00 11/02/17 08:41 Duoneb - NEB 1 amp RQID RYANN Administration Apixaban 5 mg 10/27/17 22:00 11/01/17 21:06 Eliquis - PO 5 mg BID RYANN Administration Atorvastatin Calcium 40 mg 10/28/17 22:00 11/01/17 21:06 Lipitor - PO 40 mg HS RYANN Administration Furosemide 40 mg 10/28/17 10:00 11/01/17 09:20 Lasix Injection - IVPUSH 40 mg DAILY RYANN Administration Insulin Aspart 1 vial 10/27/17 22:00 11/02/17 06:47 Novolog Vial Sliding Scale - SQ 3 units ACHS R[facility]ANN Administration Protocol Insulin Detemir 20 units 11/01/17 22:00 11/02/17 06:47 Levemir Vial SQ 20 unit BID@0700,2200 [facility] Administration Levetiracetam 500 mg 11/01/17 10:00 11/01/17 21:06 Keppra - PO 500 mg BID [facility] Administration Levothyroxine Sodium 25 mcg 10/29/17 07:00 11/02/17 06:02 Synthroid - PO 25 mcg DAILY@0700 [facility] Administration Methylprednisolone Sodium Succinate 40 mg 10/31/17 18:00 11/02/17 01:22 Solu-Medrol - IVPUSH 40 mg Q8H-IV [facility] Administration Metoprolol Succinate 25 mg 10/28/17 10:00 11/01/17 09:20 Toprol Xl - PO 25 mg DAILY [facility] Administration Pantoprazole Sodium 40 mg 10/30/17 10:45 11/01/17 09:20 Protonix - PO 40 mg DAILY [facility] Administration CBC, BMP 11/01/17 06:35 11/02/17 06:20 cxr: diffuse incr markings, bilat effusions ecg: sr, lvh with repol changes LHC/PCI 10/2013: mid LAD and Diag YURIY PCI, residual prox LCX 90-95% calcific and only 30-50% dist LM disease Echo 04/2017: mild dec lvef, apical hk. nl rv. mod mr, mild-mod tr, mild as, rvsp 40-50 Echo 10/2013 : mildly reduced LVF, apical severe HK, anterior mod HK, mild to mod MR, mild to mod TR, RVSP 50-60 tele: SR a/p: 82 yr old lady with known CAD/pci, chf, HTN, HPL, DM, pad, obesity, pafib (dx 05/2017 when admitted for copd) sent from pmd for low 02 sat acute hypoxic resp failure, acute mixed diastolic/systolic CHF, acute exacerbation copd: -chronic, mild LV hypokinesis -here with low o2 sat (85%) -bnp 6K, below prior range (7K-18K) -CXR with chronic very prominent markings diffusely since 05/15--not significantly changed presently. ? incr in prior bibasilar opacities c/w incr effusions. -troponins negative, no ischemic ecg changes -on lasix 40 po daily at home. being given trial of 40 IV qd here. -last scale wt 216 when here 07/13. no wt recorded here, will obtain. -11/01: cont iv lasix. cont steroids per pulm. resp status/sx's much improved. -rec continue lasix 40 iv qd until wt stops declining, or creat starts rising -recent echo with stable findings vs prior, no stigmata of severe pulm HTN noted on that study -copd tx per pulmonary jd edwards consultant -bipap, supplemental O2 as doing CAD s/p PCI: -pt s/p rota YURIY PCI of mid LAD and Diag 2013, residual prox LCX 90-95% calcific --medically managed -Has been stable, no anginal sxs. -atypical cp symptoms reported here. enzymes neg, no acute isch ecg. -plan nuclear stress test after acute hypoxia issues resolve. Cont bb, statin, ac (no ASA). HTN: -bp controlled -same meds pafib: -in sinus here. cont toprol -cont eliquis 5 bid for AC PAD: -known occluded R SFA on 2014 periph angiogram, with dz on L below knee -? if any interventions done -routine outpt f/u slurred speech, facial droop, twitching: -resolved, being evaluated by neuro
[2017-11-02] MEDS: APIXABAN 5 MG TABLET PO SCH ×2 (09:41→22:27)
[2017-11-02] MEDS: levETIRAcetam 500 MG TABLET (FP) PO SCH ×2 (09:41→22:27)
[2017-11-02] MEDS: PANTOPRAZOLE 40 MG TABLET (FP) PO SCH (09:41)
[2017-11-02] MEDS: metoPROLOL SUCCINATE 25 MG TAB.SR.24H (FP) PO SCH (09:41)
[2017-11-02] MEDS: FUROSEMIDE 40 MG/4 ML INJECTABLE VIAL IVPUSH SCH (09:41)
--- NOTE | 2017-11-02 10:00 | PN ---
Progress Note, Physician Chief Complaint: Feels improved less SOB FS are poorly controlled History of Present Illness: year old female with a significant past medical history of HTN, HLD, CHF, CAD d /p stent , [place], COPD, T2DM who presented to the ED from her PCP office for low oxygen saturation in office. Her room air sat was reportedly 80;elevated CO2 and BNP consistent with Hypercapnia - Current Medication List Current Medications: Active Medications Albuterol Sulfate (Ventolin 0.083% Nebulizer Soln -) 1 amp NEB Q4H PRN PRN Reason: SHORT OF BREATH/WHEEZING Albuterol/Ipratropium (Duoneb -) 1 amp NEB RQID [facility] Last Admin: 11/02/17 08:41 Dose: 1 amp Apixaban (Eliquis -) 5 mg PO BID [facility] Last Admin: 11/02/17 09:41 Dose: 5 mg Atorvastatin Calcium (Lipitor -) 40 mg PO HS [facility] Last Admin: 11/01/17 21:06 Dose: 40 mg Furosemide (Lasix Injection -) 40 mg IVPUSH DAILY [facility] Last Admin: 11/02/17 09:41 Dose: 40 mg Insulin Aspart (Novolog Vial Sliding Scale -) 1 vial SQ ACHS [facility]; Protocol Last Admin: 11/02/17 06:47 Dose: 3 units Insulin Detemir (Levemir Vial) 20 units SQ BID@0700,2200 [facility] Last Admin: 11/02/17 06:47 Dose: 20 unit Levetiracetam (Keppra -) 500 mg PO BID [facility] Last Admin: 11/02/17 09:41 Dose: 500 mg Levothyroxine Sodium (Synthroid -) 25 mcg PO DAILY@0700 [facility] Last Admin: 11/02/17 06:02 Dose: 25 mcg Methylprednisolone Sodium Succinate (Solu-Medrol -) 40 mg IVPUSH Q8H-IV [facility] Last Admin: 11/02/17 09:41 Dose: 40 mg Metoprolol Succinate (Toprol Xl -) 25 mg PO DAILY [facility] Last Admin: 11/02/17 09:41 Dose: 25 mg Pantoprazole Sodium (Protonix -) 40 mg PO DAILY [facility] Last Admin: 11/02/17 09:41 Dose: 40 mg - Objective Vital Signs: Vital Signs Temperature 97.7 F 11/02/17 06:00 Pulse Rate 68 11/02/17 06:00 Respiratory Rate 20 07/08/18 06:00 Blood Pressure 108/50 11/02/17 06:00 O2 Sat by Pulse Oximetry (%) 99 11/01/17 22:00 Constitutional: Well Nourished, No Distress HEENT: Yes: Conjunctiva Clear, EOM Intact, Atraumatic, Normocephalic. No: Drooling Neck: Yes: Supple, Trachea Midline. No: Decreased ROM, Lymphadenopathy Cardiovascular: S1, S2. No: JVD, Murmur Respiratory:Regular, Rales Gastrointestinal: Yes: Normal Bowel Sounds, Soft Extremities: No: Calf Tenderness, Edema RUE: 1+, LLE: 1+ Peripheral Pulses: Left Doralis Pedis: 1+, Right Dorsalis Pedis: 1+ Neurological: Yes: Alert, Oriented, Motor Strength: WNL, LUE, LLE Labs: CBC, BMP 11/01/17 06:35 11/02/17 06:20 INR, PTT INR 1.33 (0.82-1.09) H D 10/31/17 06:00 Problem List - Problems (1) Acute on chronic respiratory failure with hypoxia and hypercapnia Assessment/Plan: Due to BILL and COPD exacerabtion improving with IV steroids and Nebs Code(s): J96.21 - ACUTE AND CHRONIC RESPIRATORY FAILURE WITH HYPOXIA; J96.22 - ACUTE AND CHRONIC RESPIRATORY FAILURE WITH HYPERCAPNIA (2) Acute on chronic diastolic (congestive) heart failure Assessment/Plan: Cont Current management improving Code(s): I50.33 - ACUTE ON CHRONIC DIASTOLIC (CONGESTIVE) HEART FAILURE (3) Atrial fibrillation Assessment/Plan: Rate controlled on apxiban Code(s): I48.91 - UNSPECIFIED ATRIAL FIBRILLATION Qualifiers: Atrial fibrillation type: paroxysmal Qualified Code(s): I48.0 - Paroxysmal atrial fibrillation (4) CAD (coronary artery disease) Assessment/Plan: S/O stent no active issue Code(s): I25.10 - ATHSCL HEART DISEASE OF [place] CORONARY ARTERY W/O ANG PCTRS Qualifiers: Coronary Disease-Associated Artery/Lesion type: [place] artery [place] vs. transplanted heart: [place] heart Associated angina: without angina Qualified Code(s): I25.10 - Atherosclerotic heart disease of [place] coronary artery without angina pectoris (5) HTN (hypertension) Assessment/Plan: Well controlled cont all hpme meds Code(s): I10 - ESSENTIAL (PRIMARY) HYPERTENSION Qualifiers: Hypertension type: essential hypertension Qualified Code(s): I10 - Essential (primary) hypertension (6) Obesity (BMI 30-39.9) Assessment/Plan: Nutrition consult Code(s): E66.9 - OBESITY, UNSPECIFIED (7) Hyperglycemia due to type 2 diabetes mellitus Assessment/Plan: Worsened in the setting of Steroid therapy optimize Glycemic control increase Levimir 20 units BID Code(s): E11.65 - TYPE 2 DIABETES MELLITUS WITH HYPERGLYCEMIA (8) Seizure Assessment/Plan: On Keppra evaluated by Neurology no new changes in MRI Code(s): R56.9 - UNSPECIFIED CONVULSIONS
--- NOTE | 2017-11-02 11:52 | PN ---
Progress Note (short form) - Note Progress Note: Neurology HISTORY OF PRESENT ILLNESS: 82 year old female with a significant past medical history of HTN, HLD, CHF, CAD , [place], COPD, DM who presented to the ED from her PCP, Dr. Fournier, for low oxygen saturation in office. Her room air saturation was reportedly 80; whereas typically around 90. She had SOB with exertion and intermittent brief left sided stabbing chest pain for 5 days per notes. She reported that she ran out of some of her medications approximately 2 weeks ago including her lasix. She was admitted for further respiratory management. Only 10/30, had episode of left- sided facial droop with slurred speech, code marjorie was called. Patient had CT head which did not show acute changes. She does have Afib and on Eliquis. Spoke to hospitalist at the time, not TPA candidate, as she is on AC (eliquis) for Afib. After imaging, reportedly stabilized and did not have slurred speech. MRI brain completed and without acute changes. 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 Episode may be recredesence from prior infarct during acute illness. Carotids also completed and reviewed and 50- 69% on the R, moderate plaques on L. This Am, not slurring speech, calm and cooperative at bedside. No longer facial twitching with Keppra on board though did have brief episode on 11/02 afternoon but stable since. Active Medications Albuterol Sulfate (Ventolin 0.083% Nebulizer Soln -) 1 amp NEB Q4H PRN PRN Reason: SHORT OF BREATH/WHEEZING Albuterol/Ipratropium (Duoneb -) 1 amp NEB RQID [facility] Last Admin: 11/02/17 08:41 Dose: 1 amp Apixaban (Eliquis -) 5 mg PO BID [facility] Last Admin: 11/02/17 09:41 Dose: 5 mg Atorvastatin Calcium (Lipitor -) 40 mg PO HS [facility] Last Admin: 11/01/17 21:06 Dose: 40 mg Furosemide (Lasix Injection -) 40 mg IVPUSH DAILY [facility] Last Admin: 11/02/17 09:41 Dose: 40 mg Insulin Aspart (Novolog Vial Sliding Scale -) 1 vial SQ ACHS [facility]; Protocol Last Admin: 11/02/17 06:47 Dose: 3 units Insulin Detemir (Levemir Vial) 20 units SQ BID@0700,2200 [facility] Last Admin: 11/02/17 06:47 Dose: 20 unit Levetiracetam (Keppra -) 500 mg PO BID [facility] Last Admin: 11/02/17 09:41 Dose: 500 mg Levothyroxine Sodium (Synthroid -) 25 mcg PO DAILY@0700 [facility] Last Admin: 11/02/17 06:02 Dose: 25 mcg Methylprednisolone Sodium Succinate (Solu-Medrol -) 40 mg IVPUSH Q8H-IV [facility] Last Admin: 11/02/17 09:41 Dose: 40 mg Metoprolol Succinate (Toprol Xl -) 25 mg PO DAILY [facility] Last Admin: 11/02/17 09:41 Dose: 25 mg Pantoprazole Sodium (Protonix -) 40 mg PO DAILY [facility] Last Admin: 11/02/17 09:41 Dose: 40 mg PHYSICAL EXAMINATION Vital Signs Period Temp Pulse Resp BP Sys/Gardner Pulse Ox Last 24 Hr 97.7 F-98.6 F 64-73 18-20 108-143/42-66 99 GENERAL: Awake, alert, and fully oriented, in no acute distress. HEAD: Normal with no signs of trauma. EYES: Pupils equal, round and reactive to light, extraocular movements intact, sclera anicteric, conjunctiva clear. No lid lag. EARS, NOSE, THROAT: Ears normal, nares patent, oropharynx clear without exudates. Moist mucous membranes. NECK: Normal range of motion, supple without lymphadenopathy, JVD, or masses. LUNGS: Crackles bilateral bases, no wheezing. No accessory muscle use. HEART: Regular rate and rhythm, normal S1 and S2 without murmur, rub or gallop. ABDOMEN: Soft, nontender, not distended, normoactive bowel sounds, no guarding, no rebound, no masses. No hepatomegaly or splenomegaly. MUSCULOSKELETAL: Normal range of motion at all joints. No bony deformities or tenderness. No CVA tenderness. UPPER EXTREMITIES: 2+ pulses, warm, well-perfused. No cyanosis. No clubbing. No peripheral edema. LOWER EXTREMITIES: 2+ pulses, warm, well-perfused. No calf tenderness. 2+ pitting peripheral edema. NEUROLOGICAL: Slight L facial, otherwise CN intact, moving all extremities equally, not participating in full confrontation testing, sensory intact PSYCHIATRIC: Cooperative. Good eye contact. Appropriate mood and affect. SKIN: Warm, dry, normal turgor, no rashes or lesions noted, normal capillary refill. CBCD WBC 5.0 K/mm3 (4.0-10.0) 11/01/17 06:35 RBC 5.28 M/mm3 (3.60-5.2) H 11/01/17 06:35 Hgb 10.8 GM/dL (10.7-15.3) 11/01/17 06:35 Hct 35.1 % (32.4-45.2) 11/01/17 06:35 MCV 66.5 fl (80-96) L 11/01/17 06:35 MCHC 30.9 g/dl (32.0-36.0) L 11/01/17 06:35 RDW 17.3 % (11.6-15.6) H 11/01/17 06:35 Plt Count 227 K/MM3 (134-434) 11/01/17 06:35 MPV 8.3 fl (7.5-11.1) 11/01/17 06:35 CMP Sodium 141 mmol/L (136-145) 11/02/17 06:20 Potassium 4.4 mmol/L (3.5-5.1) 11/02/17 06:20 Chloride 93 mmol/L (98-107) L 11/02/17 06:20 Carbon Dioxide 44 mmol/L (21-32) H 11/02/17 06:20 Anion Gap 4 (8-16) L 11/02/17 06:20 BUN 42 mg/dL (7-18) H 11/02/17 06:20 Creatinine 1.0 mg/dL (0.55-1.02) 11/02/17 06:20 Creat Clearance w eGFR 53.21 (>60) 11/02/17 06:20 Calcium 8.4 mg/dL (8.5-10.1) L 11/02/17 06:20 Total Bilirubin 0.9 mg/dL (0.2-1.0) 11/02/17 06:20 AST 15 U/L (15-37) 11/02/17 06:20 ALT 19 U/L (12-78) 11/02/17 06:20 Alkaline Phosphatase 69 U/L (45-117) D 11/02/17 06:20 Total Protein 6.9 g/dl (6.4-8.2) 11/02/17 06:20 Albumin 3.2 g/dl (3.4-5.0) L 11/02/17 06:[address] head reviewed Carotid Doppler reviewed MRI brain reviewed ASSESSMENT/PLAN: 82 year old female with a significant past medical history of HTN, HLD, CHF, CAD , [place], COPD, DM who presented to the ED from her PCP, Dr. Fournier, for low oxygen saturation in office. Her room air saturation was reportedly 80; whereas typically around 90. She had SOB with exertion and intermittent brief left sided stabbing chest pain for 5 days per notes. She reported that she ran out of some of her medications approximately 2 weeks ago including her lasix. She was admitted for further respiratory management. Only 10/30, had episode of left- sided facial droop with slurred speech, code amador was called. Patient had CT head which did not show acute changes. She does have Afib and on Eliquis. Spoke to hospitalist at the time, not TPA candidate, as she is on AC (eliquis) for Afib. After imaging, reportedly stabilized and did not have slurred speech. MRI brain completed and without acute changes. 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 Episode may be recredesence from prior infarct during acute illness. Carotids also completed and reviewed and 50- 69% on the R, moderate plaques on L. This Am, not slurring speech, calm and cooperative at bedside. Keppra ordered for twitching activity, discussed with nurse, no longer occuring on Keppra. Continue neuro monitoring. Medical optimization of CHF. Monitor blood pressure, recommend < 140/90 for now. Continue eliqus for Afib. Fall precautions. Neurologically stable.
--- NOTE | 2017-11-02 13:04 | PN ---
Progress Note (short form) - Note Progress Note: Awake and alert on NC O2. No acute events overnight. Overall improving. Intake & Output 10/30/17 10/31/17 11/01/17 11/02/17 23:59 23:59 23:59 23:59 Intake Total 760 450 230 60 Balance 760 450 230 60 Weight 212 lb 211 lb 6.4 oz 209 lb 12.8 oz 209 lb Last Vital Signs Temp Pulse Resp BP Pulse Ox 97.7 F 68 20 108/50 99 11/02/17 06:00 11/02/17 06:00 11/02/17 06:00 11/02/17 06:00 11/01/17 22:00 Active Medications Albuterol Sulfate (Ventolin 0.083% Nebulizer Soln -) 1 amp NEB Q4H PRN PRN Reason: SHORT OF BREATH/WHEEZING Albuterol/Ipratropium (Duoneb -) 1 amp NEB RQID [facility] Last Admin: 11/02/17 08:41 Dose: 1 amp Apixaban (Eliquis -) 5 mg PO BID [facility] Last Admin: 11/02/17 09:41 Dose: 5 mg Atorvastatin Calcium (Lipitor -) 40 mg PO HS [facility] Last Admin: 11/01/17 21:06 Dose: 40 mg Furosemide (Lasix Injection -) 40 mg IVPUSH DAILY [facility] Last Admin: 11/02/17 09:41 Dose: 40 mg Insulin Aspart (Novolog Vial Sliding Scale -) 1 vial SQ ACHS [facility]; Protocol Last Admin: 11/02/17 12:43 Dose: 3 units Insulin Detemir (Levemir Vial) 20 units SQ BID@0700,2200 [facility] Last Admin: 11/02/17 06:47 Dose: 20 unit Levetiracetam (Keppra -) 500 mg PO BID [facility] Last Admin: 11/02/17 09:41 Dose: 500 mg Levothyroxine Sodium (Synthroid -) 25 mcg PO DAILY@0700 [facility] Last Admin: 11/02/17 06:02 Dose: 25 mcg Methylprednisolone Sodium Succinate (Solu-Medrol -) 40 mg IVPUSH Q8H-IV [facility] Last Admin: 11/02/17 09:41 Dose: 40 mg Metoprolol Succinate (Toprol Xl -) 25 mg PO DAILY [facility] Last Admin: 11/02/17 09:41 Dose: 25 mg Pantoprazole Sodium (Protonix -) 40 mg PO DAILY [facility] Last Admin: 11/02/17 09:41 Dose: 40 mg Constitutional: Yes: NAD Eyes: Yes: WNL HENT: Yes: WNL Cardiovascular: Yes: Pulse Irregular, S1, S2 Respiratory: Yes: Bibasilar rhonchi, no wheeze Gastrointestinal: Yes: Normal Bowel Sounds, Soft Extremities: Yes: WNL Edema: Yes Labs: Laboratory Results - last 24 hr 11/01/17 11/02/17 11/02/17 16:34 05:29 06:20 Sodium 141 Potassium 4.4 Chloride 93 L Carbon Dioxide 44 H Anion Gap 4 L BUN 42 H Creatinine 1.0 Creat Clearance w eGFR 53.21 POC Glucometer 543 215 Random Glucose 204 H Calcium 8.4 L Total Bilirubin 0.9 AST 15 ALT 19 Alkaline Phosphatase 69 D Total Protein 6.9 Albumin 3.2 L 11/02/17 11:48 Sodium Potassium Chloride Carbon Dioxide Anion Gap BUN Creatinine Creat Clearance w eGFR POC Glucometer 229 Random Glucose Calcium Total Bilirubin AST ALT Alkaline Phosphatase Total Protein Albumin Problem List - Problems (1) Acute on chronic diastolic (congestive) heart failure Code(s): I50.33 - ACUTE ON CHRONIC DIASTOLIC (CONGESTIVE) HEART FAILURE (2) Atrial fibrillation Code(s): I48.91 - UNSPECIFIED ATRIAL FIBRILLATION Qualifiers: Atrial fibrillation type: paroxysmal Qualified Code(s): I48.0 - Paroxysmal atrial fibrillation (3) CAD (coronary artery disease) Code(s): I25.10 - ATHSCL HEART DISEASE OF [place] CORONARY ARTERY W/O ANG PCTRS (4) COPD (chronic obstructive pulmonary disease) Code(s): J44.9 - CHRONIC OBSTRUCTIVE PULMONARY DISEASE, UNSPECIFIED (5) Chronic respiratory failure with hypoxia Code(s): J96.11 - CHRONIC RESPIRATORY FAILURE WITH HYPOXIA (6) ASHD (arteriosclerotic heart disease) Code(s): I25.10 - ATHSCL HEART DISEASE OF [place] CORONARY ARTERY W/O ANG PCTRS (7) Acute on chronic respiratory failure with hypoxia and hypercapnia Code(s): J96.21 - ACUTE AND CHRONIC RESPIRATORY FAILURE WITH HYPOXIA; J96.22 - ACUTE AND CHRONIC RESPIRATORY FAILURE WITH HYPERCAPNIA (8) CHF exacerbation Code(s): I50.9 - HEART FAILURE, UNSPECIFIED Qualifiers: Heart failure type: unspecified Qualified Code(s): I50.9 - Heart failure, unspecified (9) Diabetes mellitus Code(s): E11.9 - TYPE 2 DIABETES MELLITUS WITHOUT COMPLICATIONS Qualifiers: Diabetes mellitus type: type 2 Diabetes mellitus intermission coordinator insulin use: without custodial use Diabetes mellitus complication status: without complication Qualified Code(s): E11.9 - Type 2 diabetes mellitus without complications (10) HTN (hypertension) Code(s): I10 - ESSENTIAL (PRIMARY) HYPERTENSION Qualifiers: Hypertension type: essential hypertension Qualified Code(s): I10 - Essential (primary) hypertension (11) History of coronary artery stent placement Code(s): Z95.5 - PRESENCE OF CORONARY ANGIOPLASTY IMPLANT AND GRAFT (12) Paroxysmal atrial fibrillation with rapid ventricular response Code(s): I48.0 - PAROXYSMAL ATRIAL FIBRILLATION (13) Respiratory distress Code(s): R06.00 - DYSPNEA, UNSPECIFIED Assessment/Plan IMP ACUTE IN CHRONIC HYPOXEMIC/HYPERCAPNEIC RESPIRATORY FAILURE IMPROVED ACUTE ON CHRONIC CHF PAF ASHD S/P ND ,S/P STENTS COPD O2 DEPENDENT PULMONARY HTN IDDM HTN HLD LIKELY OSAS PLAN LASIX NIPPV NEEDED O2 INHALED BRONCHODILATORS MEDROL TAPERED SLEEP STUDIES OUTPATIENT DR STAHL
[2017-11-02] MEDS ORDERED: ACETAMINOPHEN 325 MG TABLET (FP) PO PRN (14:12)
[2017-11-02] MEDS ORDERED: INSULIN (NOVOLOG) ASPART 100 UNITS/ML 10ML VIAL ONE (21:13)
[2017-11-02] MEDS: ATORVASTATIN CA 40 MG TABLET (FP) PO SCH (22:27)
[2017-11-03] MEDS: methylPREDNISolone NA SUCC 40 MG/1 ML VIAL IVPUSH SCH ×3 (01:22→22:15)
[2017-11-03] MEDS: INSULIN SLIDING SCALE (NOVOLOG) 1 VIAL SQ SCH ×4 (06:20→22:15)
[2017-11-03] MEDS: LEVOTHYROXINE NA 25 MCG TABLET (FP) PO SCH (06:20)
[2017-11-03] MEDS: INSULIN (LEVEMIR) 100 UNITS/ML UNITS SQ SCH ×2 (06:21→22:15)
[2017-11-03 06:57] LABS: BASO % 0.1 % (0-2.0); EOS % 0.1 % (0-4.5); HEMATOCRIT 37.1 % (32.4-45.2); HEMOGLOBIN 11.4 GM/dL (10.7-15.3); LYMPH % 3.9 % (8-40); MCH 20.6 pg (25.7-33.7); MCHC 30.8 g/dl (32.0-36.0); MEAN CELL VOLUME 66.9 fl (80-96); MEAN PLT VOLUME 8.8 fl (7.5-11.1); MONO % 1.2 % (3.8-10.2); NEUT % 94.7 % (42.8-82.8); PLATELET COUNT 208 K/MM3 (134-434); RBC 5.54 M/mm3 (3.60-5.2); RDW 17.3 % (11.6-15.6); WHITE BLOOD COUNT 4.8 K/mm3 (4.0-10.0)
[2017-11-03 07:31] LABS: ANION GAP 3 (8-16); BLOOD UREA NITROGEN 48 mg/dL (7-18); CALCIUM 8.3 mg/dL (8.5-10.1); CHLORIDE 92 mmol/L (98-107); CO2 45 mmol/L (21-32); POTASSIUM 4.6 mmol/L (3.5-5.1); SODIUM 140 mmol/L (136-145)
[2017-11-03 08:06] LABS: GLUCOSE,RANDOM 321 mg/dL (74-106)
[2017-11-03] MEDS: metoPROLOL SUCCINATE 25 MG TAB.SR.24H (FP) PO SCH (08:59)
[2017-11-03] MEDS: APIXABAN 5 MG TABLET PO SCH ×2 (08:59→22:14)
[2017-11-03] MEDS: PANTOPRAZOLE 40 MG TABLET (FP) PO SCH (08:59)
[2017-11-03] MEDS: FUROSEMIDE 40 MG/4 ML INJECTABLE VIAL IVPUSH SCH (08:59)
[2017-11-03] MEDS: levETIRAcetam 500 MG TABLET (FP) PO SCH ×2 (08:59→22:14)
--- NOTE | 2017-11-03 09:25 | PN ---
Progress Note (short form) - Note Progress Note: Neurology HISTORY OF PRESENT ILLNESS: 82 year old female with a significant past medical history of HTN, HLD, CHF, CAD , [place], COPD, DM who presented to the ED from her PCP, Dr. Fournier, for low oxygen saturation in office. Her room air saturation was reportedly 80; whereas typically around 90. She had SOB with exertion and intermittent brief left sided stabbing chest pain for 5 days per notes. She reported that she ran out of some of her medications approximately 2 weeks ago including her lasix. She was admitted for further respiratory management. Only 10/30, had episode of left- sided facial droop with slurred speech, code mrajorie was called. Patient had CT head which did not show acute changes. She does have Afib and on Eliquis. Spoke to hospitalist at the time, not TPA candidate, as she is on AC (eliquis) for Afib. After imaging, reportedly stabilized and did not have slurred speech. MRI brain completed and without acute changes. 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 Episode may be recredesence from prior infarct during acute illness. Carotids also completed and reviewed and 50- 69% on the R, moderate plaques on L. This Am, not slurring speech, calm and cooperative at bedside. No longer facial twitching with Keppra on board though did have brief episode on 11/02 afternoon but stable since. Confirmed with nurse. No other neurologic changes. Active Medications Acetaminophen (Tylenol -) 650 mg PO Q6H PRN PRN Reason: PAIN Apixaban (Eliquis -) 5 mg PO BID [facility] Last Admin: 11/03/17 08:59 Dose: 5 mg Atorvastatin Calcium (Lipitor -) 40 mg PO HS [facility] Last Admin: 11/02/17 22:27 Dose: 40 mg Furosemide (Lasix Injection -) 40 mg IVPUSH DAILY [facility] Last Admin: 11/03/17 08:59 Dose: 40 mg Insulin Aspart (Novolog Vial Sliding Scale -) 1 vial SQ [facility]; Protocol Last Admin: 11/03/17 06:20 Dose: 6 units Insulin Detemir (Levemir Vial) 20 units SQ BID@0700,2200 [facility] Last Admin: 11/03/17 06:21 Dose: 20 unit Levetiracetam (Keppra -) 500 mg PO BID [facility] Last Admin: 11/03/17 08:59 Dose: 500 mg Levothyroxine Sodium (Synthroid -) 25 mcg PO DAILY@0700 [facility] Last Admin: 11/03/17 06:20 Dose: 25 mcg Methylprednisolone Sodium Succinate (Solu-Medrol -) 40 mg IVPUSH Q8H-IV [facility] Last Admin: 11/03/17 08:59 Dose: 40 mg Metoprolol Succinate (Toprol Xl -) 25 mg PO DAILY [facility] Last Admin: 11/03/17 08:59 Dose: 25 mg Pantoprazole Sodium (Protonix -) 40 mg PO DAILY [facility] Last Admin: 11/03/17 08:59 Dose: 40 mg PHYSICAL EXAMINATION Vital Signs Temperature 97.6 F 11/03/17 06:00 Pulse Rate 64 11/03/17 06:00 Respiratory Rate 20 11/03/17 06:00 Blood Pressure 127/57 11/03/17 06:00 O2 Sat by Pulse Oximetry (%) 97 11/03/17 07:21 GENERAL: Awake, alert, and fully oriented, in no acute distress. HEAD: Normal with no signs of trauma. EYES: Pupils equal, round and reactive to light, extraocular movements intact, sclera anicteric, conjunctiva clear. No lid lag. EARS, NOSE, THROAT: Ears normal, nares patent, oropharynx clear without exudates. Moist mucous membranes. NECK: Normal range of motion, supple without lymphadenopathy, JVD, or masses. LUNGS: Crackles bilateral bases, no wheezing. No accessory muscle use. HEART: Regular rate and rhythm, normal S1 and S2 without murmur, rub or gallop. ABDOMEN: Soft, nontender, not distended, normoactive bowel sounds, no guarding, no rebound, no masses. No hepatomegaly or splenomegaly. MUSCULOSKELETAL: Normal range of motion at all joints. No bony deformities or tenderness. No CVA tenderness. UPPER EXTREMITIES: 2+ pulses, warm, well-perfused. No cyanosis. No clubbing. No peripheral edema. LOWER EXTREMITIES: 2+ pulses, warm, well-perfused. No calf tenderness. 2+ pitting peripheral edema. NEUROLOGICAL: Slight L facial, otherwise CN intact, moving all extremities equally, not participating in full confrontation testing, sensory intact PSYCHIATRIC: Cooperative. Good eye contact. Appropriate mood and affect. SKIN: Warm, dry, normal turgor, no rashes or lesions noted, normal capillary refill. CBCD WBC 4.8 K/mm3 (4.0-10.0) 11/03/17 06:00 RBC 5.54 M/mm3 (3.60-5.2) H 11/03/17 06:00 Hgb 11.4 GM/dL (10.7-15.3) 11/03/17 06:00 Hct 37.1 % (32.4-45.2) 11/03/17 06:00 MCV 66.9 fl (80-96) L 11/03/17 06:00 MCHC 30.8 g/dl (32.0-36.0) L 11/03/17 06:00 RDW 17.3 % (11.6-15.6) H 11/03/17 06:00 Plt Count 208 K/MM3 (134-434) 11/03/17 06:00 MPV 8.8 fl (7.5-11.1) 11/03/17 06:00 CMP Sodium 140 mmol/L (136-145) 11/03/17 06:00 Potassium 4.6 mmol/L (3.5-5.1) 11/03/17 06:00 Chloride 92 mmol/L (98-107) L 11/03/17 06:00 Carbon Dioxide 45 mmol/L (21-32) H 11/03/17 06:00 Anion Gap 3 (8-16) L 11/03/17 06:00 BUN 48 mg/dL (7-18) H 11/03/17 06:00 Creatinine 1.0 mg/dL (0.55-1.02) 11/03/17 06:00 Creat Clearance w eGFR 53.21 (>60) 11/03/17 06:00 Calcium 8.3 mg/dL (8.5-10.1) L 11/03/17 06:00 Total Bilirubin 0.9 mg/dL (0.2-1.0) 11/02/17 06:20 AST 15 U/L (15-37) 11/02/17 06:20 ALT 19 U/L (12-78) 11/02/17 06:20 Alkaline Phosphatase 69 U/L (45-117) D 11/02/17 06:20 Total Protein 6.9 g/dl (6.4-8.2) 11/02/17 06:20 Albumin 3.2 g/dl (3.4-5.0) L 11/02/17 06:[address] head reviewed Carotid Doppler reviewed MRI brain reviewed ASSESSMENT/PLAN: 82 year old female with a significant past medical history of HTN, HLD, CHF, CAD , [place], COPD, DM who presented to the ED from her PCP, Dr. Fournier, for low oxygen saturation in office. Her room air saturation was reportedly 80; whereas typically around 90. She had SOB with exertion and intermittent brief left sided stabbing chest pain for 5 days per notes. She reported that she ran out of some of her medications approximately 2 weeks ago including her lasix. She was admitted for further respiratory management. Only 10/30, had episode of left- sided facial droop with slurred speech, code marjorie was called. Patient had CT head which did not show acute changes. She does have Afib and on Eliquis. Spoke to hospitalist at the time, not TPA candidate, as she is on AC (eliquis) for Afib. After imaging, reportedly stabilized and did not have slurred speech. MRI brain completed and without acute changes. 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 Episode may be recredesence from prior infarct during acute illness. Carotids also completed and reviewed and 50- 69% on the R, moderate plaques on L. This Am, not slurring speech, calm and cooperative at bedside. Keppra ordered for twitching activity, discussed with nurse, no longer occuring on Keppra. Continue neuro monitoring. Medical optimization of CHF. Monitor blood pressure, recommend < 140/90 for now. Continue eliqus for Afib. Fall precautions. Neurologically stable.
--- NOTE | 2017-11-03 11:21 | PN ---
Progress Note, Physician Chief Complaint: Coverage for Drs. Zapata/Duyen Events noted Not in distress History of Present Illness: Patient was seen and examined. Awake and alert. Chart was reviewed Denies chest pain, SOB or palpitations - Current Medication List Current Medications: Active Medications Acetaminophen (Tylenol -) 650 mg PO Q6H PRN PRN Reason: PAIN Apixaban (Eliquis -) 5 mg PO BID [facility] Last Admin: 11/03/17 08:59 Dose: 5 mg Atorvastatin Calcium (Lipitor -) 40 mg PO HS [facility] Last Admin: 11/02/17 22:27 Dose: 40 mg Furosemide (Lasix Injection -) 40 mg IVPUSH DAILY [facility] Last Admin: 11/03/17 08:59 Dose: 40 mg Insulin Aspart (Novolog Vial Sliding Scale -) 1 vial SQ [facility]; Protocol Last Admin: 11/03/17 06:20 Dose: 6 units Insulin Detemir (Levemir Vial) 20 units SQ BID@0700,2200 [facility] Last Admin: 11/03/17 06:21 Dose: 20 unit Levetiracetam (Keppra -) 500 mg PO BID [facility] Last Admin: 11/03/17 08:59 Dose: 500 mg Levothyroxine Sodium (Synthroid -) 25 mcg PO DAILY@0700 [facility] Last Admin: 11/03/17 06:20 Dose: 25 mcg Methylprednisolone Sodium Succinate (Solu-Medrol -) 40 mg IVPUSH Q8H-IV [facility] Last Admin: 11/03/17 08:59 Dose: 40 mg Metoprolol Succinate (Toprol Xl -) 25 mg PO DAILY [facility] Last Admin: 11/03/17 08:59 Dose: 25 mg Pantoprazole Sodium (Protonix -) 40 mg PO DAILY [facility] Last Admin: 11/03/17 08:59 Dose: 40 mg - Objective Vital Signs: Vital Signs Temperature 97.6 F 11/03/17 06:00 Pulse Rate 64 11/03/17 06:00 Respiratory Rate 20 11/03/17 06:00 Blood Pressure 127/57 11/03/17 06:00 O2 Sat by Pulse Oximetry (%) 97 11/03/17 07:21 Eyes: Yes: PERRL HENT: Yes: Atraumatic Neck: Yes: Supple Cardiovascular: Yes: Regular Rate and Rhythm, S1, S2 Respiratory: Yes: Diminished Gastrointestinal: Yes: Normal Bowel Sounds, Soft. No: Tenderness Edema: No Additional Findings/Remarks: - Review of Systems Constitutional: denies: Chills, Fever Cardiovascular: As noted above Respiratory: denies: Cough or Sputum Production Gastrointestinal: denies: Nausea, Vomiting, Diarrhea, Constipation or Abdominal Pain Neurological: denies: Dizziness or Headaches but reports Right Sided Weakness as noted above Endocrine: denies: Intolerance to Cold, Intolerance to Heat Labs: CBC, BMP 11/03/17 06:00 11/03/17 06:00 Problem List - Problems (1) Acute on chronic diastolic (congestive) heart failure Code(s): I50.33 - ACUTE ON CHRONIC DIASTOLIC (CONGESTIVE) HEART FAILURE (2) Atrial fibrillation Code(s): I48.91 - UNSPECIFIED ATRIAL FIBRILLATION Qualifiers: Atrial fibrillation type: paroxysmal Qualified Code(s): I48.0 - Paroxysmal atrial fibrillation (3) CAD (coronary artery disease) Code(s): I25.10 - ATHSCL HEART DISEASE OF [place] CORONARY ARTERY W/O ANG PCTRS Qualifiers: Coronary Disease-Associated Artery/Lesion type: [place] artery [place] vs. transplanted heart: [place] heart Associated angina: without angina Qualified Code(s): I25.10 - Atherosclerotic heart disease of [place] coronary artery without angina pectoris (4) COPD (chronic obstructive pulmonary disease) Code(s): J44.9 - CHRONIC OBSTRUCTIVE PULMONARY DISEASE, UNSPECIFIED Qualifiers: COPD type: unspecified COPD Qualified Code(s): J44.9 - Chronic obstructive pulmonary disease, unspecified (5) Chronic respiratory failure with hypoxia Code(s): J96.11 - CHRONIC RESPIRATORY FAILURE WITH HYPOXIA (6) [id number] kidney injury Code(s): N17.9 - ACUTE KIDNEY FAILURE, UNSPECIFIED; N18.9 - CHRONIC KIDNEY DISEASE, UNSPECIFIED Qualifiers: Chronic kidney disease stage: stage 2 (mild) (7) Diabetes mellitus Code(s): E11.9 - TYPE 2 DIABETES MELLITUS WITHOUT COMPLICATIONS Qualifiers: Diabetes mellitus type: type 2 Diabetes mellitus director corporate security insulin use: without mcc use Diabetes mellitus complication status: without complication Qualified Code(s): E11.9 - Type 2 diabetes mellitus without complications (8) HTN (hypertension) Code(s): I10 - ESSENTIAL (PRIMARY) HYPERTENSION Qualifiers: Hypertension type: essential hypertension Qualified Code(s): I10 - Essential (primary) hypertension (9) History of coronary artery stent placement Code(s): Z95.5 - PRESENCE OF CORONARY ANGIOPLASTY IMPLANT AND GRAFT (10) Hyperlipidemia Code(s): E78.5 - HYPERLIPIDEMIA, UNSPECIFIED Qualifiers: Hyperlipidemia type: pure hypercholesterolemia Qualified Code(s): E78.00 - Pure hypercholesterolemia, unspecified; E78.0 - Pure hypercholesterolemia Assessment/Plan 1. Acute hypoxic respiratory failure with mixed diastolic/systolic LV failure 2. CAD s/p PCI/YURIY, angina pectoris 3. HTN 4. PAF 5. PAD 6. Hypercholesterolemia PLAN: 1. Continue Metoprolol as tolerated 2. Consider ACEI or ARB if BP tolerates 3. Continue Eliquis 5 mg BID 4. Continue statin 5. Steroid taper and bronchodilators as needed 6. Diuretics - IV for now but may be switched to oral regimen following I/O and weight 7. Neuro input noted 8. Further work up including nuclear MPI as per primary animal impersonator's discretion Further plans are to follow Camilo Bergeron MD
--- NOTE | 2017-11-03 11:23 | PN ---
Progress Note, Physician History of Present Illness: pulmonary awake,less congested,-resp distress - Current Medication List Current Medications: Active Medications Acetaminophen (Tylenol -) 650 mg PO Q6H PRN PRN Reason: PAIN Apixaban (Eliquis -) 5 mg PO BID [facility] Last Admin: 11/03/17 08:59 Dose: 5 mg Atorvastatin Calcium (Lipitor -) 40 mg PO HS [facility] Last Admin: 11/02/17 22:27 Dose: 40 mg Furosemide (Lasix Injection -) 40 mg IVPUSH DAILY [facility] Last Admin: 11/03/17 08:59 Dose: 40 mg Insulin Aspart (Novolog Vial Sliding Scale -) 1 vial SQ [facility]; Protocol Last Admin: 11/03/17 06:20 Dose: 6 units Insulin Detemir (Levemir Vial) 20 units SQ BID@0700,2200 [facility] Last Admin: 11/03/17 06:21 Dose: 20 unit Levetiracetam (Keppra -) 500 mg PO BID [facility] Last Admin: 11/03/17 08:59 Dose: 500 mg Levothyroxine Sodium (Synthroid -) 25 mcg PO DAILY@0700 [facility] Last Admin: 11/03/17 06:20 Dose: 25 mcg Methylprednisolone Sodium Succinate (Solu-Medrol -) 40 mg IVPUSH Q8H-IV [facility] Last Admin: 11/03/17 08:59 Dose: 40 mg Metoprolol Succinate (Toprol Xl -) 25 mg PO DAILY [facility] Last Admin: 11/03/17 08:59 Dose: 25 mg Pantoprazole Sodium (Protonix -) 40 mg PO DAILY [facility] Last Admin: 11/03/17 08:59 Dose: 40 mg - Objective Vital Signs: Vital Signs Temperature 97.6 F 11/03/17 06:00 Pulse Rate 64 11/03/17 06:00 Respiratory Rate 20 11/03/17 06:00 Blood Pressure 127/57 11/03/17 06:00 O2 Sat by Pulse Oximetry (%) 97 11/03/17 07:21 Constitutional: Yes: Well Nourished, Calm Eyes: Yes: WNL HENT: Yes: WNL Neck: Yes: WNL Cardiovascular: Yes: Pulse Irregular, S1, S2 Respiratory: Yes: Rhonchi (few scattered rubi rhonchi) Gastrointestinal: Yes: Normal Bowel Sounds, Soft Extremities: Yes: WNL Edema: No Labs: CBC, BMP 11/03/17 06:00 11/03/17 06:00 INR, PTT INR 1.33 (0.82-1.09) H D 10/31/17 06:00 Problem List - Problems (1) Acute on chronic diastolic (congestive) heart failure Code(s): I50.33 - ACUTE ON CHRONIC DIASTOLIC (CONGESTIVE) HEART FAILURE (2) Atrial fibrillation Code(s): I48.91 - UNSPECIFIED ATRIAL FIBRILLATION Qualifiers: Atrial fibrillation type: paroxysmal Qualified Code(s): I48.0 - Paroxysmal atrial fibrillation (3) CAD (coronary artery disease) Code(s): I25.10 - ATHSCL HEART DISEASE OF [place] CORONARY ARTERY W/O ANG PCTRS (4) COPD (chronic obstructive pulmonary disease) Code(s): J44.9 - CHRONIC OBSTRUCTIVE PULMONARY DISEASE, UNSPECIFIED (5) Chronic respiratory failure with hypoxia Code(s): J96.11 - CHRONIC RESPIRATORY FAILURE WITH HYPOXIA (6) ASHD (arteriosclerotic heart disease) Code(s): I25.10 - ATHSCL HEART DISEASE OF [place] CORONARY ARTERY W/O ANG PCTRS (7) Acute on chronic respiratory failure with hypoxia and hypercapnia Code(s): J96.21 - ACUTE AND CHRONIC RESPIRATORY FAILURE WITH HYPOXIA; J96.22 - ACUTE AND CHRONIC RESPIRATORY FAILURE WITH HYPERCAPNIA (8) CHF exacerbation Code(s): I50.9 - HEART FAILURE, UNSPECIFIED Qualifiers: Heart failure type: unspecified Qualified Code(s): I50.9 - Heart failure, unspecified (9) Diabetes mellitus Code(s): E11.9 - TYPE 2 DIABETES MELLITUS WITHOUT COMPLICATIONS Qualifiers: Diabetes mellitus type: type 2 Diabetes mellitus shelter insulin use: without laborer marine terminal use Diabetes mellitus complication status: without complication Qualified Code(s): E11.9 - Type 2 diabetes mellitus without complications (10) HTN (hypertension) Code(s): I10 - ESSENTIAL (PRIMARY) HYPERTENSION Qualifiers: Hypertension type: essential hypertension Qualified Code(s): I10 - Essential (primary) hypertension (11) History of coronary artery stent placement Code(s): Z95.5 - PRESENCE OF CORONARY ANGIOPLASTY IMPLANT AND GRAFT (12) Paroxysmal atrial fibrillation with rapid ventricular response Code(s): I48.0 - PAROXYSMAL ATRIAL FIBRILLATION (13) Respiratory distress Code(s): R06.00 - DYSPNEA, UNSPECIFIED Assessment/Plan IMP ACUTE IN CHRONIC HYPOXEMIC/HYPERCAPNEIC RESPIRATORY FAILURE IMPROVED ACUTE ON CHRONIC CHF PAF ASHD S/P [place] ,S/P STENTS COPD O2 DEPENDENT PULMONARY HTN IDDM HTN HLD LIKELY OSAS PLAN LASIX IV NIPPV NEEDED O2 INHALED BRONCHODILATORS MEDROL TAPER STRICT I+Os DAILY WT F/U CHEST X-RAYS SLEEP STUDIES OUTPATIENT DR CAAL Problem List - Problems (1) Acute on chronic diastolic (congestive) heart failure Code(s): I50.33 - ACUTE ON CHRONIC DIASTOLIC (CONGESTIVE) HEART FAILURE (2) Atrial fibrillation Code(s): I48.91 - UNSPECIFIED ATRIAL FIBRILLATION Qualifiers: Atrial fibrillation type: paroxysmal Qualified Code(s): I48.0 - Paroxysmal atrial fibrillation (3) CAD (coronary artery disease) Code(s): I25.10 - ATHSCL HEART DISEASE OF [place] CORONARY ARTERY W/O ANG PCTRS (4) COPD (chronic obstructive pulmonary disease) Code(s): J44.9 - CHRONIC OBSTRUCTIVE PULMONARY DISEASE, UNSPECIFIED (5) Chronic respiratory failure with hypoxia Code(s): J96.11 - CHRONIC RESPIRATORY FAILURE WITH HYPOXIA (6) ASHD (arteriosclerotic heart disease) Code(s): I25.10 - ATHSCL HEART DISEASE OF [place] CORONARY ARTERY W/O ANG PCTRS (7) Acute on chronic respiratory failure with hypoxia and hypercapnia Code(s): J96.21 - ACUTE AND CHRONIC RESPIRATORY FAILURE WITH HYPOXIA; J96.22 - ACUTE AND CHRONIC RESPIRATORY FAILURE WITH HYPERCAPNIA (8) CHF exacerbation Code(s): I50.9 - HEART FAILURE, UNSPECIFIED Qualifiers: Heart failure type: unspecified Qualified Code(s): I50.9 - Heart failure, unspecified (9) Diabetes mellitus Code(s): E11.9 - TYPE 2 DIABETES MELLITUS WITHOUT COMPLICATIONS Qualifiers: Diabetes mellitus type: type 2 Diabetes mellitus laborer marine terminal insulin use: without laborer marine terminal use Diabetes mellitus complication status: without complication Qualified Code(s): E11.9 - Type 2 diabetes mellitus without complications (10) HTN (hypertension) Code(s): I10 - ESSENTIAL (PRIMARY) HYPERTENSION Qualifiers: Hypertension type: essential hypertension Qualified Code(s): I10 - Essential (primary) hypertension (11) History of coronary artery stent placement Code(s): Z95.5 - PRESENCE OF CORONARY ANGIOPLASTY IMPLANT AND GRAFT (12) Paroxysmal atrial fibrillation with rapid ventricular response Code(s): I48.0 - PAROXYSMAL ATRIAL FIBRILLATION (13) Respiratory distress Code(s): R06.00 - DYSPNEA, UNSPECIFIED
[2017-11-03 11:58] LABS: ANISOCYTOSIS 2+; MACROCYTOSIS 1+; PLATELET ESTIMATE NORMAL; TARGET CELLS 0
--- NOTE | 2017-11-03 12:13 | PN ---
Progress Note, Physician Chief Complaint: Ms Jarrett is without complaint. No cp, sob, n/v. - Current Medication List Current Medications: Active Medications Acetaminophen (Tylenol -) 650 mg PO Q6H PRN PRN Reason: PAIN Apixaban (Eliquis -) 5 mg PO BID [facility] Last Admin: 11/03/17 08:59 Dose: 5 mg Atorvastatin Calcium (Lipitor -) 40 mg PO HS [facility] Last Admin: 11/02/17 22:27 Dose: 40 mg Furosemide (Lasix Injection -) 40 mg IVPUSH DAILY [facility] Last Admin: 11/03/17 08:59 Dose: 40 mg Insulin Aspart (Novolog Vial Sliding Scale -) 1 vial SQ [facility]; Protocol Last Admin: 11/03/17 11:59 Dose: 3 units Insulin Detemir (Levemir Vial) 20 units SQ BID@0700,2200 [facility] Last Admin: 11/03/17 06:21 Dose: 20 unit Levetiracetam (Keppra -) 500 mg PO BID [facility] Last Admin: 11/03/17 08:59 Dose: 500 mg Levothyroxine Sodium (Synthroid -) 25 mcg PO DAILY@0700 [facility] Last Admin: 11/03/17 06:20 Dose: 25 mcg Methylprednisolone Sodium Succinate (Solu-Medrol -) 40 mg IVPUSH BID [facility] Metoprolol Succinate (Toprol Xl -) 25 mg PO DAILY [facility] Last Admin: 11/03/17 08:59 Dose: 25 mg Pantoprazole Sodium (Protonix -) 40 mg PO DAILY [facility] Last Admin: 11/03/17 08:59 Dose: 40 mg - Objective Vital Signs: Vital Signs Temperature 36.9 C 11/03/17 10:00 Pulse Rate 64 11/03/17 10:00 Respiratory Rate 20 11/03/17 10:00 Blood Pressure 131/59 11/03/17 10:00 O2 Sat by Pulse Oximetry (%) 97 11/03/17 07:21 Constitutional: Yes: No Distress, Calm, Obese Cardiovascular: Yes: Pulse Irregular. No: Tachycardia, Gallop, Murmur, Rub Respiratory: Yes: Regular, CTA Bilaterally, On Nasal O2. No: Rales, Rhonchi, Wheezes Gastrointestinal: Yes: Normal Bowel Sounds, Soft. No: Distention, Tenderness Extremities: Yes: WNL Edema: No Labs: CBC, BMP 11/03/17 06:00 11/03/17 06:00 INR, PTT INR 1.33 (0.82-1.09) H D 10/31/17 06:00 Problem List - Problems (1) Acute on chronic diastolic (congestive) heart failure Code(s): I50.33 - ACUTE ON CHRONIC DIASTOLIC (CONGESTIVE) HEART FAILURE (2) Diabetes mellitus Code(s): E11.9 - TYPE 2 DIABETES MELLITUS WITHOUT COMPLICATIONS Qualifiers: Diabetes mellitus type: type 2 Diabetes mellitus custodial insulin use: without custodial use Diabetes mellitus complication status: without complication Qualified Code(s): E11.9 - Type 2 diabetes mellitus without complications (3) HTN (hypertension) Code(s): I10 - ESSENTIAL (PRIMARY) HYPERTENSION Qualifiers: Hypertension type: essential hypertension Qualified Code(s): I10 - Essential (primary) hypertension (4) Hyperlipidemia Code(s): E78.5 - HYPERLIPIDEMIA, UNSPECIFIED Qualifiers: Hyperlipidemia type: pure hypercholesterolemia Qualified Code(s): E78.00 - Pure hypercholesterolemia, unspecified; E78.0 - Pure hypercholesterolemia (5) Atrial fibrillation Code(s): I48.91 - UNSPECIFIED ATRIAL FIBRILLATION Qualifiers: Atrial fibrillation type: paroxysmal Qualified Code(s): I48.0 - Paroxysmal atrial fibrillation (6) COPD (chronic obstructive pulmonary disease) Code(s): J44.9 - CHRONIC OBSTRUCTIVE PULMONARY DISEASE, UNSPECIFIED (7) CAD (coronary artery disease) Code(s): I25.10 - ATHSCL HEART DISEASE OF [place] CORONARY ARTERY W/O ANG PCTRS (8) Chronic respiratory failure with hypoxia Code(s): J96.11 - CHRONIC RESPIRATORY FAILURE WITH HYPOXIA Assessment/Plan (1) Acute on chronic diastolic (congestive) heart failure Assessment/Plan: -cardiology following -appears improved -plan for discharge when on oral lasix Code(s): I50.33 - ACUTE ON CHRONIC DIASTOLIC (CONGESTIVE) HEART FAILURE (2) Diabetes mellitus Assessment/Plan: -diabetic diet -still with hyperglycemia from steroids -increase levemir in the short term -should start to improve with taper Code(s): E11.9 - TYPE 2 DIABETES MELLITUS WITHOUT COMPLICATIONS Qualifiers: Diabetes mellitus type: type 2 Diabetes mellitus custodial insulin use: without custodial use Diabetes mellitus complication status: without complication Qualified Code(s): E11.9 - Type 2 diabetes mellitus without complications (3) HTN (hypertension) Assessment/Plan: -continue toprol xl and lasix Code(s): I10 - ESSENTIAL (PRIMARY) HYPERTENSION Qualifiers: Hypertension type: essential hypertension Qualified Code(s): I10 - Essential (primary) hypertension (4) Hyperlipidemia Assessment/Plan: -continue statin Code(s): E78.5 - HYPERLIPIDEMIA, UNSPECIFIED Qualifiers: Hyperlipidemia type: pure hypercholesterolemia Qualified Code(s): E78.00 - Pure hypercholesterolemia, unspecified; E78.0 - Pure hypercholesterolemia (5) Atrial fibrillation Assessment/Plan: -continue eliquis -continue toprol xl Code(s): I48.91 - UNSPECIFIED ATRIAL FIBRILLATION Qualifiers: Atrial fibrillation type: paroxysmal Qualified Code(s): I48.0 - Paroxysmal atrial fibrillation (6) COPD (chronic obstructive pulmonary disease) Assessment/Plan: -pulmonary following -continue duoneb and solumedrol -plan to transition to prednisone taper soon Code(s): J44.9 - CHRONIC OBSTRUCTIVE PULMONARY DISEASE, UNSPECIFIED (7) CAD (coronary artery disease) Assessment/Plan: -quiescent -continue toprol xl Code(s): I25.10 - ATHSCL HEART DISEASE OF [place] CORONARY ARTERY W/O ANG PCTRS (8) Chronic respiratory failure with hypoxia Assessment/Plan: -continue oxygen support -on oxygen at home [id number] Code(s): J96.11 - CHRONIC RESPIRATORY FAILURE WITH HYPOXIA (9) Tremors -appreciate neurology assistance -resolved with keppra Dispo -plan for discharge once transitioned to oral lasix
[2017-11-03 14:37] VITALS: BMI 37.0
[2017-11-03] MEDS: ATORVASTATIN CA 40 MG TABLET (FP) PO SCH (22:14)
[2017-11-04] MEDS: INSULIN (LEVEMIR) 100 UNITS/ML UNITS SQ SCH (06:17)
[2017-11-04] MEDS: LEVOTHYROXINE NA 25 MCG TABLET (FP) PO SCH (06:17)
[2017-11-04] MEDS: INSULIN SLIDING SCALE (NOVOLOG) 1 VIAL SQ SCH ×2 (06:17→12:09)
[2017-11-04 06:19] LABS: BASO % 0.3 % (0-2.0); HEMATOCRIT 38.3 % (32.4-45.2); HEMOGLOBIN 11.7 GM/dL (10.7-15.3); LYMPH % 5.7 % (8-40); MCH 20.4 pg (25.7-33.7); MCHC 30.6 g/dl (32.0-36.0); MEAN CELL VOLUME 66.9 fl (80-96); MEAN PLT VOLUME 8.5 fl (7.5-11.1); MONO % 1.4 % (3.8-10.2); NEUT % 92.6 % (42.8-82.8); PLATELET COUNT 218 K/MM3 (134-434); RBC 5.72 M/mm3 (3.60-5.2); RDW 16.9 % (11.6-15.6); WHITE BLOOD COUNT 5.5 K/mm3 (4.0-10.0)
[2017-11-04 07:12] LABS: ANION GAP 4 (8-16); BLOOD UREA NITROGEN 52 mg/dL (7-18); CALCIUM 8.3 mg/dL (8.5-10.1); CHLORIDE 93 mmol/L (98-107); CO2 45 mmol/L (21-32); GLUCOSE,RANDOM 271 mg/dL (74-106); MAGNESIUM 2.6 mg/dL (1.8-2.4); PHOSPHOROUS 4.7 mg/dL (2.5-4.9); POTASSIUM 4.8 mmol/L (3.5-5.1); SODIUM 142 mmol/L (136-145)
[2017-11-04 08:27] LABS: ANISOCYTOSIS 3+; MACROCYTOSIS 0; PLATELET ESTIMATE NORMAL; TARGET CELLS 1+
--- NOTE | 2017-11-04 09:42 | PN ---
Progress Note (short form) - Note Progress Note: Neurology HISTORY OF PRESENT ILLNESS: 82 year old female with a significant past medical history of HTN, HLD, CHF, CAD , CO, COPD, DM who presented to the ED from her PCP, Dr. Fournier, for low oxygen saturation in office. Her room air saturation was reportedly 80; whereas typically around 90. She had SOB with exertion and intermittent brief left sided stabbing chest pain for 5 days per notes. She reported that she ran out of some of her medications approximately 2 weeks ago including her lasix. She was admitted for further respiratory management. Only 10/30, had episode of left- sided facial droop with slurred speech, code marjorie was called. Patient had CT head which did not show acute changes. She does have Afib and on Eliquis. Spoke to hospitalist at the time, not TPA candidate, as she is on AC (eliquis) for Afib. After imaging, reportedly stabilized and did not have slurred speech. MRI brain completed and without acute changes. 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 Episode may be recredesence from prior infarct during acute illness. Carotids also completed and reviewed and 50- 69% on the R, moderate plaques on L. This Am, not slurring speech, calm and cooperative at bedside. No longer facial twitching with Keppra on board though did have brief episode on 11/02 afternoon but stable since. Confirmed with nurse. No other neurologic changes. Has been stable at asking about discharge. No new neurologic complaints. Active Medications Acetaminophen (Tylenol -) 650 mg PO Q6H PRN PRN Reason: PAIN Apixaban (Eliquis -) 5 mg PO BID [facility] Last Admin: 11/03/17 22:14 Dose: 5 mg Atorvastatin Calcium (Lipitor -) 40 mg PO HS [facility] Last Admin: 11/03/17 22:14 Dose: 40 mg Furosemide (Lasix Injection -) 40 mg IVPUSH DAILY [facility] Last Admin: 11/03/17 08:59 Dose: 40 mg Insulin Aspart (Novolog Vial Sliding Scale -) 1 vial SQ [facility]; Protocol Last Admin: 11/04/17 06:17 Dose: 3 units Insulin Detemir (Levemir Vial) 25 units SQ BID@0700,2200 [facility] Last Admin: 11/04/17 06:17 Dose: 25 units Levetiracetam (Keppra -) 500 mg PO BID [facility] Last Admin: 11/03/17 22:14 Dose: 500 mg Levothyroxine Sodium (Synthroid -) 25 mcg PO DAILY@0700 [facility] Last Admin: 11/04/17 06:17 Dose: 25 mcg Methylprednisolone Sodium Succinate (Solu-Medrol -) 40 mg IVPUSH BID [facility] Last Admin: 11/03/17 22:15 Dose: 40 mg Metoprolol Succinate (Toprol Xl -) 25 mg PO DAILY [facility] Last Admin: 11/03/17 08:59 Dose: 25 mg Pantoprazole Sodium (Protonix -) 40 mg PO DAILY [facility] Last Admin: 11/03/17 08:59 Dose: 40 mg PHYSICAL EXAMINATION Vital Signs Temperature 97.9 F 11/04/17 06:00 Pulse Rate 66 11/04/17 06:00 Respiratory Rate 20 11/04/17 06:00 Blood Pressure 150/56 11/04/17 06:00 O2 Sat by Pulse Oximetry (%) 99 11/04/17 08:14 GENERAL: Awake, alert, and fully oriented, in no acute distress. HEAD: Normal with no signs of trauma. EYES: Pupils equal, round and reactive to light, extraocular movements intact, sclera anicteric, conjunctiva clear. No lid lag. EARS, NOSE, THROAT: Ears normal, nares patent, oropharynx clear without exudates. Moist mucous membranes. NECK: Normal range of motion, supple without lymphadenopathy, JVD, or masses. LUNGS: Crackles bilateral bases, no wheezing. No accessory muscle use. HEART: Regular rate and rhythm, normal S1 and S2 without murmur, rub or gallop. ABDOMEN: Soft, nontender, not distended, normoactive bowel sounds, no guarding, no rebound, no masses. No hepatomegaly or splenomegaly. MUSCULOSKELETAL: Normal range of motion at all joints. No bony deformities or tenderness. No CVA tenderness. UPPER EXTREMITIES: 2+ pulses, warm, well-perfused. No cyanosis. No clubbing. No peripheral edema. LOWER EXTREMITIES: 2+ pulses, warm, well-perfused. No calf tenderness. 2+ pitting peripheral edema. NEUROLOGICAL: Slight L facial, otherwise CN intact, moving all extremities equally, not participating in full confrontation testing, sensory intact PSYCHIATRIC: Cooperative. Good eye contact. Appropriate mood and affect. SKIN: Warm, dry, normal turgor, no rashes or lesions noted, normal capillary refill. CBCD WBC 5.5 K/mm3 (4.0-10.0) 11/04/17 06:00 RBC 5.72 M/mm3 (3.60-5.2) H 11/04/17 06:00 Hgb 11.7 GM/dL (10.7-15.3) 11/04/17 06:00 Hct 38.3 % (32.4-45.2) 11/04/17 06:00 MCV 66.9 fl (80-96) L 11/04/17 06:00 MCHC 30.6 g/dl (32.0-36.0) L 11/04/17 06:00 RDW 16.9 % (11.6-15.6) H 11/04/17 06:00 Plt Count 218 K/MM3 (134-434) 11/04/17 06:00 MPV 8.5 fl (7.5-11.1) 11/04/17 06:00 CMP Sodium 142 mmol/L (136-145) 11/04/17 06:00 Potassium 4.8 mmol/L (3.5-5.1) 11/04/17 06:00 Chloride 93 mmol/L (98-107) L 11/04/17 06:00 Carbon Dioxide 45 mmol/L (21-32) H 11/04/17 06:00 Anion Gap 4 (8-16) L 11/04/17 06:00 BUN 52 mg/dL (7-18) H 11/04/17 06:00 Creatinine 1.0 mg/dL (0.55-1.02) 11/04/17 06:00 Creat Clearance w eGFR 53.21 (>60) 11/04/17 06:00 Calcium 8.3 mg/dL (8.5-10.1) L 11/04/17 06:00 Total Bilirubin 0.9 mg/dL (0.2-1.0) 11/02/17 06:20 AST 15 U/L (15-37) 11/02/17 06:20 ALT 19 U/L (12-78) 11/02/17 06:20 Alkaline Phosphatase 69 U/L (45-117) D 11/02/17 06:20 Total Protein 6.9 g/dl (6.4-8.2) 11/02/17 06:20 Albumin 3.2 g/dl (3.4-5.0) L 11/02/17 06:[address] head reviewed Carotid Doppler reviewed MRI brain reviewed ASSESSMENT/PLAN: 82 year old female with a significant past medical history of HTN, HLD, CHF, CAD , CO, COPD, DM who presented to the ED from her PCP, Dr. Fournier, for low oxygen saturation in office. Her room air saturation was reportedly 80; whereas typically around 90. She had SOB with exertion and intermittent brief left sided stabbing chest pain for 5 days per notes. She reported that she ran out of some of her medications approximately 2 weeks ago including her lasix. She was admitted for further respiratory management. Only 10/30, had episode of left- sided facial droop with slurred speech, code marjorie was called. Patient had CT head which did not show acute changes. She does have Afib and on Eliquis. Spoke to hospitalist at the time, not TPA candidate, as she is on AC (eliquis) for Afib. After imaging, reportedly stabilized and did not have slurred speech. MRI brain completed and without acute changes. 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 Episode may be recredesence from prior infarct during acute illness. Carotids also completed and reviewed and 50- 69% on the R, moderate plaques on L. This Am, not slurring speech, calm and cooperative at bedside. Keppra ordered for twitching activity, confirmed with nurse, no longer occuring on Keppra. Continue neuro monitoring. Medical optimization of CHF. Monitor blood pressure, recommend < 140/90 for now. Continue eliqus for Afib. Fall precautions. Neurologically stable.
[2017-11-04] MEDS: metoPROLOL SUCCINATE 25 MG TAB.SR.24H (FP) PO SCH (10:19)
[2017-11-04] MEDS: PANTOPRAZOLE 40 MG TABLET (FP) PO SCH (10:19)
[2017-11-04] MEDS: levETIRAcetam 500 MG TABLET (FP) PO SCH (10:19)
[2017-11-04] MEDS: APIXABAN 5 MG TABLET PO SCH (10:19)
[2017-11-04] MEDS: FUROSEMIDE 40 MG/4 ML INJECTABLE VIAL IVPUSH SCH (10:19)
[2017-11-04] MEDS: methylPREDNISolone NA SUCC 40 MG/1 ML VIAL IVPUSH SCH (10:19)
--- NOTE | 2017-11-04 11:32 | PN ---
Progress Note, Physician Chief Complaint: Coverage for Drs. Zapata/Duyen Events noted Not in distress History of Present Illness: Patient was seen and examined. Awake and alert. Chart was reviewed Complains of epigastric discomfort Denies SOB or palpitations - Current Medication List Current Medications: Active Medications Acetaminophen (Tylenol -) 650 mg PO Q6H PRN PRN Reason: PAIN Apixaban (Eliquis -) 5 mg PO BID [facility] Last Admin: 11/04/17 10:19 Dose: 5 mg Atorvastatin Calcium (Lipitor -) 40 mg PO HS [facility] Last Admin: 11/03/17 22:14 Dose: 40 mg Furosemide (Lasix Injection -) 40 mg IVPUSH DAILY [facility] Last Admin: 11/04/17 10:19 Dose: 40 mg Insulin Aspart (Novolog Vial Sliding Scale -) 1 vial SQ [facility]; Protocol Last Admin: 11/04/17 06:17 Dose: 3 units Insulin Detemir (Levemir Vial) 25 units SQ BID@0700,2200 [facility] Last Admin: 11/04/17 06:17 Dose: 25 units Levetiracetam (Keppra -) 500 mg PO BID [facility] Last Admin: 11/04/17 10:19 Dose: 500 mg Levothyroxine Sodium (Synthroid -) 25 mcg PO DAILY@0700 [facility] Last Admin: 11/04/17 06:17 Dose: 25 mcg Methylprednisolone Sodium Succinate (Solu-Medrol -) 40 mg IVPUSH BID [facility] Last Admin: 11/04/17 10:19 Dose: 40 mg Metoprolol Succinate (Toprol Xl -) 25 mg PO DAILY [facility] Last Admin: 11/04/17 10:19 Dose: 25 mg Pantoprazole Sodium (Protonix -) 40 mg PO DAILY [facility] Last Admin: 11/04/17 10:19 Dose: 40 mg - Objective Vital Signs: Vital Signs Temperature 98.3 F 11/04/17 10:00 Pulse Rate 112 H 11/04/17 10:00 Respiratory Rate 20 11/04/17 10:00 Blood Pressure 135/66 11/04/17 10:00 O2 Sat by Pulse Oximetry (%) 99 11/04/17 10:00 Eyes: Yes: PERRL HENT: Yes: Atraumatic Neck: Yes: Supple Cardiovascular: Yes: Regular Rate and Rhythm, S1, S2 Respiratory: Yes: CTA Bilaterally Gastrointestinal: Yes: Normal Bowel Sounds, Soft. No: Tenderness Edema: No Additional Findings/Remarks: - Review of Systems Constitutional: denies: Chills, Fever Cardiovascular: As noted above Respiratory: denies: Cough or Sputum Production Gastrointestinal: denies: Nausea, Vomiting, Diarrhea, Constipation or Abdominal Pain Neurological: denies: Dizziness or Headaches but reports Right Sided Weakness as noted above Endocrine: denies: Intolerance to Cold, Intolerance to Heat Labs: CBC, BMP 11/04/17 06:00 11/04/17 06:00 Problem List - Problems (1) Acute on chronic diastolic (congestive) heart failure Code(s): I50.33 - ACUTE ON CHRONIC DIASTOLIC (CONGESTIVE) HEART FAILURE (2) Atrial fibrillation Code(s): I48.91 - UNSPECIFIED ATRIAL FIBRILLATION Qualifiers: Atrial fibrillation type: paroxysmal Qualified Code(s): I48.0 - Paroxysmal atrial fibrillation (3) CAD (coronary artery disease) Code(s): I25.10 - ATHSCL HEART DISEASE OF [place] CORONARY ARTERY W/O ANG PCTRS Qualifiers: Coronary Disease-Associated Artery/Lesion type: [place] artery [place] vs. transplanted heart: [place] heart Associated angina: without angina Qualified Code(s): I25.10 - Atherosclerotic heart disease of [place] coronary artery without angina pectoris (4) COPD (chronic obstructive pulmonary disease) Code(s): J44.9 - CHRONIC OBSTRUCTIVE PULMONARY DISEASE, UNSPECIFIED Qualifiers: COPD type: unspecified COPD Qualified Code(s): J44.9 - Chronic obstructive pulmonary disease, unspecified (5) Chronic respiratory failure with hypoxia Code(s): J96.11 - CHRONIC RESPIRATORY FAILURE WITH HYPOXIA (6) [id number] kidney injury Code(s): N17.9 - ACUTE KIDNEY FAILURE, UNSPECIFIED; N18.9 - CHRONIC KIDNEY DISEASE, UNSPECIFIED Qualifiers: Chronic kidney disease stage: stage 2 (mild) (7) Diabetes mellitus Code(s): E11.9 - TYPE 2 DIABETES MELLITUS WITHOUT COMPLICATIONS Qualifiers: Diabetes mellitus type: type 2 Diabetes mellitus chcf insulin use: without chcf use Diabetes mellitus complication status: without complication Qualified Code(s): E11.9 - Type 2 diabetes mellitus without complications (8) HTN (hypertension) Code(s): I10 - ESSENTIAL (PRIMARY) HYPERTENSION Qualifiers: Hypertension type: essential hypertension Qualified Code(s): I10 - Essential (primary) hypertension (9) History of coronary artery stent placement Code(s): Z95.5 - PRESENCE OF CORONARY ANGIOPLASTY IMPLANT AND GRAFT (10) Hyperlipidemia Code(s): E78.5 - HYPERLIPIDEMIA, UNSPECIFIED Qualifiers: Hyperlipidemia type: pure hypercholesterolemia Qualified Code(s): E78.00 - Pure hypercholesterolemia, unspecified; E78.0 - Pure hypercholesterolemia Assessment/Plan 1. Acute hypoxic respiratory failure with mixed diastolic/systolic LV failure 2. CAD s/p PCI/YURIY, angina pectoris 3. HTN 4. PAF 5. PAD 6. Hypercholesterolemia PLAN: 1. Continue Metoprolol as tolerated 2. Consider ACEI or ARB if BP tolerates if not hyperkalemia and renal function stable - consider Losartan 25 mg once a day 3. Continue Eliquis 5 mg BID 4. Continue statin 5. Steroid taper and bronchodilators as needed 6. Diuretics - IV for now but may be switched to oral regimen following I/O and weight 7. Neuro input noted 8. Further work up including nuclear MPI as per primary director of sales's discretion Further plans are to follow. ECG this AM Camilo Bergeron MD
--- NOTE | 2017-11-04 11:52 | DS ---
Physical Examination Vital Signs: Vital Signs Temperature 36.8 C 11/04/17 10:00 Pulse Rate 112 H 11/04/17 10:00 Respiratory Rate 20 11/04/17 10:00 Blood Pressure 135/66 11/04/17 10:00 O2 Sat by Pulse Oximetry (%) 99 11/04/17 10:00 Labs: CBC, BMP 11/04/17 06:00 11/04/17 06:00 Discharge Summary Reason For Visit: ACUTE ON CHRONIC DIASTOLIC CONGESTIVE HEART FAILUR Current Active Problems Acute on chronic diastolic (congestive) heart failure (Acute) Atrial fibrillation (Acute) CAD (coronary artery disease) (Acute) COPD (chronic obstructive pulmonary disease) (Acute) Chronic respiratory failure with hypoxia (Acute) Hyperglycemia due to type 2 diabetes mellitus (Acute) Hypoxia (Acute) Obesity (BMI 30-39.9) (Acute) Seizure (Acute) Condition: Stable - Instructions Diet, Activity, Other Instructions: resume home oxygen. resume previous diet and activity. Referrals: Aleena Fournier MD [Primary Care Provider] - Derek Geller MD [Staff Physician] - Kiel Obregon MD [Staff Physician] - Disposition: HOME - Home Medications Comprehensive Discharge Medication List: Ambulatory Orders Insulin Lispro [Humalog] 0 unit SQ TIDCM PRN 03/02/14 Metoprolol Succinate [Toprol XL -] 25 mg PO DAILY #30 tab.sr.24h 03/11/14 Apixaban [Eliquis -] 5 mg PO BID #60 tablet 06/09/17 Insulin (Levemir) [Levemir Vial] 15 unit SQ HS 07/16/17 Furosemide [Lasix] 40 mg PO DAILY #30 tablet 07/20/17 Insulin Sliding Scale [Novolog Vial Sliding Scale -] 1 vial SQ ACHS units 07/20 Levothyroxine [Synthroid -] 25 mcg PO DAILY 10/27/17 Atorvastatin Ca [Lipitor] 40 mg PO HS #30 tablet 11/04/17 Ipratropium/Albuterol Sulfate [Combivent Respimat Inhal [place]] 4 gm IH TID #1 aer.w.adap 11/04/17 Pantoprazole Sodium [Protonix -] 40 mg PO DAILY #30 tablet.ec 11/04/17 levETIRAcetam [Keppra -] 500 mg PO BID #60 tablet 11/04/17 predniSONE [Deltasone -] 5 mg PO ASDIR #32 tab 11/04/17
--- NOTE | 2017-11-04 13:13 | PN ---
Progress Note (short form) - Note Progress Note: Awake and alert on NC O2. No acute events overnight. Overall improving. Intake & Output 11/01/17 11/02/17 11/03/17 11/04/17 23:59 23:59 23:59 23:59 Intake Total 230 550 410 Balance 230 550 410 Weight 209 lb 12.8 oz 209 lb 209 lb 208 lb Last Vital Signs Temp Pulse Resp BP Pulse Ox 98.3 F 112 H 20 135/66 99 11/04/17 10:00 11/04/17 10:00 11/04/17 10:00 11/04/17 10:00 11/04/17 10:00 Active Medications Acetaminophen (Tylenol -) 650 mg PO Q6H PRN PRN Reason: PAIN Apixaban (Eliquis -) 5 mg PO BID [facility] Last Admin: 11/04/17 10:19 Dose: 5 mg Atorvastatin Calcium (Lipitor -) 40 mg PO HS [facility] Last Admin: 11/03/17 22:14 Dose: 40 mg Furosemide (Lasix Injection -) 40 mg IVPUSH DAILY [facility] Last Admin: 11/04/17 10:19 Dose: 40 mg Insulin Aspart (Novolog Vial Sliding Scale -) 1 vial SQ [facility]; Protocol Last Admin: 11/04/17 12:09 Dose: 3 units Insulin Detemir (Levemir Vial) 25 units SQ BID@0700,2200 [facility] Last Admin: 11/04/17 06:17 Dose: 25 units Levetiracetam (Keppra -) 500 mg PO BID [facility] Last Admin: 11/04/17 10:19 Dose: 500 mg Levothyroxine Sodium (Synthroid -) 25 mcg PO DAILY@0700 [facility] Last Admin: 11/04/17 06:17 Dose: 25 mcg Methylprednisolone Sodium Succinate (Solu-Medrol -) 40 mg IVPUSH BID [facility] Last Admin: 11/04/17 10:19 Dose: 40 mg Metoprolol Succinate (Toprol Xl -) 25 mg PO DAILY [facility] Last Admin: 11/04/17 10:19 Dose: 25 mg Pantoprazole Sodium (Protonix -) 40 mg PO DAILY [facility] Last Admin: 11/04/17 10:19 Dose: 40 mg Constitutional: Yes: NAD Eyes: Yes: WNL HENT: Yes: WNL Cardiovascular: Yes: Pulse Irregular, S1, S2 Respiratory: Yes: Bibasilar rhonchi, no wheeze Gastrointestinal: Yes: Normal Bowel Sounds, Soft Extremities: Yes: WNL Edema: Yes Labs: Laboratory Results - last 24 hr 11/03/17 11/03/17 11/04/17 17:13 20:59 05:35 WBC RBC Hgb Hct MCV MCH MCHC RDW Plt Count MPV Absolute Neuts (auto) Neutrophils % Neutrophils % (Manual) Band Neutrophils % Lymphocytes % Lymphocytes % (Manual) Monocytes % Monocytes % (Manual) Eosinophils % Eosinophils % (Manual) Basophils % Basophils % (Manual) Myelocytes % (Man) Promyelocytes % (Man) Blast Cells % (Manual) Nucleated RBC % Metamyelocytes Hypochromia Platelet Estimate Polychromasia Poikilocytosis Basophilic Stippling Anisocytosis Microcytosis Macrocytosis Target Cells Stomatocytes Sodium Potassium Chloride Carbon Dioxide Anion Gap BUN Creatinine Creat Clearance w eGFR POC Glucometer 234 251 250 Random Glucose Calcium Phosphorus Magnesium 11/04/17 11/04/17 11/04/17 06:00 06:00 11:16 WBC 5.5 RBC 5.72 H Hgb 11.7 Hct 38.3 MCV 66.9 L MCH 20.4 L MCHC 30.6 L RDW 16.9 H Plt Count 218 MPV 8.5 Absolute Neuts (auto) 5.1 Neutrophils % 92.6 H Neutrophils % (Manual) 88.8 H Band Neutrophils % 0.0 Lymphocytes % 5.7 L D Lymphocytes % (Manual) 10.2 D Monocytes % 1.4 L Monocytes % (Manual) 0 L D Eosinophils % 0.0 D Eosinophils % (Manual) 0.0 Basophils % 0.3 Basophils % (Manual) 0.0 Myelocytes % (Man) 0 Promyelocytes % (Man) 0 Blast Cells % (Manual) 0 Nucleated RBC % 0 Metamyelocytes 1 D Hypochromia 2+ Platelet Estimate Normal Polychromasia 0 Poikilocytosis 0 Basophilic Stippling 1+ Anisocytosis 3+ Microcytosis 3+ Macrocytosis 0 Target Cells 1+ Stomatocytes 1+ Sodium 142 Potassium 4.8 Chloride 93 L Carbon Dioxide 45 H Anion Gap 4 L BUN 52 H Creatinine 1.0 Creat Clearance w eGFR 53.21 POC Glucometer 278 Random Glucose 271 H Calcium 8.3 L Phosphorus 4.7 Magnesium 2.6 H Problem List - Problems (1) Acute on chronic diastolic (congestive) heart failure Code(s): I50.33 - ACUTE ON CHRONIC DIASTOLIC (CONGESTIVE) HEART FAILURE (2) Atrial fibrillation Code(s): I48.91 - UNSPECIFIED ATRIAL FIBRILLATION Qualifiers: Atrial fibrillation type: paroxysmal Qualified Code(s): I48.0 - Paroxysmal atrial fibrillation (3) CAD (coronary artery disease) Code(s): I25.10 - ATHSCL HEART DISEASE OF [place] CORONARY ARTERY W/O ANG PCTRS (4) COPD (chronic obstructive pulmonary disease) Code(s): J44.9 - CHRONIC OBSTRUCTIVE PULMONARY DISEASE, UNSPECIFIED (5) Chronic respiratory failure with hypoxia Code(s): J96.11 - CHRONIC RESPIRATORY FAILURE WITH HYPOXIA (6) ASHD (arteriosclerotic heart disease) Code(s): I25.10 - ATHSCL HEART DISEASE OF [place] CORONARY ARTERY W/O ANG PCTRS (7) Acute on chronic respiratory failure with hypoxia and hypercapnia Code(s): J96.21 - ACUTE AND CHRONIC RESPIRATORY FAILURE WITH HYPOXIA; J96.22 - ACUTE AND CHRONIC RESPIRATORY FAILURE WITH HYPERCAPNIA (8) CHF exacerbation Code(s): I50.9 - HEART FAILURE, UNSPECIFIED Qualifiers: Heart failure type: unspecified Qualified Code(s): I50.9 - Heart failure, unspecified (9) Diabetes mellitus Code(s): E11.9 - TYPE 2 DIABETES MELLITUS WITHOUT COMPLICATIONS Qualifiers: Diabetes mellitus type: type 2 Diabetes mellitus terminal manager insulin use: without jail use Diabetes mellitus complication status: without complication Qualified Code(s): E11.9 - Type 2 diabetes mellitus without complications (10) HTN (hypertension) Code(s): I10 - ESSENTIAL (PRIMARY) HYPERTENSION Qualifiers: Hypertension type: essential hypertension Qualified Code(s): I10 - Essential (primary) hypertension (11) History of coronary artery stent placement Code(s): Z95.5 - PRESENCE OF CORONARY ANGIOPLASTY IMPLANT AND GRAFT (12) Paroxysmal atrial fibrillation with rapid ventricular response Code(s): I48.0 - PAROXYSMAL ATRIAL FIBRILLATION (13) Respiratory distress Code(s): R06.00 - DYSPNEA, UNSPECIFIED Assessment/Plan IMP ACUTE IN CHRONIC HYPOXEMIC/HYPERCAPNEIC RESPIRATORY FAILURE IMPROVED ACUTE ON CHRONIC CHF PAF ASHD S/P ND ,S/P STENTS COPD O2 DEPENDENT PULMONARY HTN IDDM HTN HLD LIKELY OSAS PLAN LASIX O2 NEEDED INHALED BRONCHODILATORS PREDNISON TAPER SLEEP STUDIES OUTPATIENT DR STAHL
--- NOTE | 2017-11-04 13:39 | PN ---
Progress Note, Physician Chief Complaint: Ms Jarrett is without complaint. No cp, sob, n/v. Says she is feeling back to normal today. - Current Medication List Current Medications: Active Medications Acetaminophen (Tylenol -) 650 mg PO Q6H PRN PRN Reason: PAIN Apixaban (Eliquis -) 5 mg PO BID [facility]S AT [facility] Last Admin: 11/04/17 10:19 Dose: 5 mg Atorvastatin Calcium (Lipitor -) 40 mg PO HS [facility] 234 BEDS AT [facility] Last Admin: 11/03/17 22:14 Dose: 40 mg Furosemide (Lasix Injection -) 40 mg IVPUSH DAILY [facility] 234 BEDS AT [facility] Last Admin: 11/04/17 10:19 Dose: 40 mg Insulin Aspart (Novolog Vial Sliding Scale -) 1 vial SQ ACHS [facility]CLUDE 234 BEDS AT [facility]; Protocol Last Admin: 11/04/17 12:09 Dose: 3 units Insulin Detemir (Levemir Vial) 25 units SQ BID@0700,2200 [facility] 234 [facility]S AT [facility] Last Admin: 11/04/17 06:17 Dose: 25 units Levetiracetam (Keppra -) 500 mg PO BID [facility] 234 BEDS AT [facility] Last Admin: 11/04/17 10:19 Dose: 500 mg Levothyroxine Sodium (Synthroid -) 25 mcg PO DAILY@0700 [facility]CLUDE 234 BEDS AT [facility] Last Admin: 11/04/17 06:17 Dose: 25 mcg Metoprolol Succinate (Toprol Xl -) 25 mg PO DAILY [facility]CLUDE 234 BEDS AT [facility] Last Admin: 11/04/17 10:19 Dose: 25 mg Pantoprazole Sodium (Protonix -) 40 mg PO DAILY [facility]CLUDE 234 BEDS AT [facility] Last Admin: 11/04/17 10:19 Dose: 40 mg Prednisone (Deltasone -) 40 mg PO DAILY [facility]CLUDE 234 BEDS AT THE [facility] - Objective Vital Signs: Vital Signs Temperature 36.8 C 11/04/17 10:00 Pulse Rate 112 H 11/04/17 10:00 Respiratory Rate 20 11/04/17 10:00 Blood Pressure 135/66 11/04/17 10:00 O2 Sat by Pulse Oximetry (%) 99 11/04/17 10:00 Constitutional: Yes: No Distress, Calm, Obese Cardiovascular: Yes: Pulse Irregular. No: Regular Rate and Rhythm, Tachycardia , Gallop, Murmur, Rub Respiratory: Yes: Regular, CTA Bilaterally, On Nasal O2. No: Rales, Rhonchi, Wheezes Gastrointestinal: Yes: Normal Bowel Sounds, Soft. No: Distention, Tenderness Extremities: Yes: WNL Edema: No Labs: CBC, BMP 11/04/17 06:00 11/04/17 06:00 INR, PTT INR 1.33 (0.82-1.09) H D 10/31/17 06:00 Problem List - Problems (1) Acute on chronic diastolic (congestive) heart failure Code(s): I50.33 - ACUTE ON CHRONIC DIASTOLIC (CONGESTIVE) HEART FAILURE (2) Diabetes mellitus Code(s): E11.9 - TYPE 2 DIABETES MELLITUS WITHOUT COMPLICATIONS Qualifiers: Diabetes mellitus type: type 2 Diabetes mellitus computer terminal operator insulin use: without computer terminal operator use Diabetes mellitus complication status: without complication Qualified Code(s): E11.9 - Type 2 diabetes mellitus without complications (3) HTN (hypertension) Code(s): I10 - ESSENTIAL (PRIMARY) HYPERTENSION Qualifiers: Hypertension type: essential hypertension Qualified Code(s): I10 - Essential (primary) hypertension (4) Hyperlipidemia Code(s): E78.5 - HYPERLIPIDEMIA, UNSPECIFIED Qualifiers: Hyperlipidemia type: pure hypercholesterolemia Qualified Code(s): E78.00 - Pure hypercholesterolemia, unspecified; E78.0 - Pure hypercholesterolemia (5) Atrial fibrillation Code(s): I48.91 - UNSPECIFIED ATRIAL FIBRILLATION Qualifiers: Atrial fibrillation type: paroxysmal Qualified Code(s): I48.0 - Paroxysmal atrial fibrillation (6) COPD (chronic obstructive pulmonary disease) Code(s): J44.9 - CHRONIC OBSTRUCTIVE PULMONARY DISEASE, UNSPECIFIED Qualifiers: COPD type: unspecified COPD Qualified Code(s): J44.9 - Chronic obstructive pulmonary disease, unspecified (7) CAD (coronary artery disease) Code(s): I25.10 - ATHSCL HEART DISEASE OF [place] CORONARY ARTERY W/O ANG PCTRS Qualifiers: Coronary Disease-Associated Artery/Lesion type: [place] artery [place] vs. transplanted heart: [place] heart Associated angina: without angina Qualified Code(s): I25.10 - Atherosclerotic heart disease of [place] coronary artery without angina pectoris (8) Chronic respiratory failure with hypoxia Code(s): J96.11 - CHRONIC RESPIRATORY FAILURE WITH HYPOXIA Assessment/Plan (1) Acute on chronic diastolic (congestive) heart failure Code(s): I50.33 - ACUTE ON CHRONIC DIASTOLIC (CONGESTIVE) HEART FAILURE (2) Diabetes mellitus Code(s): E11.9 - TYPE 2 DIABETES MELLITUS WITHOUT COMPLICATIONS Qualifiers: Diabetes mellitus type: type 2 Diabetes mellitus care home insulin use: without computer terminal operator use Diabetes mellitus complication status: without complication Qualified Code(s): E11.9 - Type 2 diabetes mellitus without complications (3) HTN (hypertension) Code(s): I10 - ESSENTIAL (PRIMARY) HYPERTENSION Qualifiers: Hypertension type: essential hypertension Qualified Code(s): I10 - Essential (primary) hypertension (4) Hyperlipidemia Code(s): E78.5 - HYPERLIPIDEMIA, UNSPECIFIED Qualifiers: Hyperlipidemia type: pure hypercholesterolemia Qualified Code(s): E78.00 - Pure hypercholesterolemia, unspecified; E78.0 - Pure hypercholesterolemia (5) Atrial fibrillation Code(s): I48.91 - UNSPECIFIED ATRIAL FIBRILLATION Qualifiers: Atrial fibrillation type: paroxysmal Qualified Code(s): I48.0 - Paroxysmal atrial fibrillation (6) COPD (chronic obstructive pulmonary disease) Code(s): J44.9 - CHRONIC OBSTRUCTIVE PULMONARY DISEASE, UNSPECIFIED (7) CAD (coronary artery disease) Code(s): I25.10 - ATHSCL HEART DISEASE OF [place] CORONARY ARTERY W/O ANG PCTRS (8) Chronic respiratory failure with hypoxia Code(s): J96.11 - CHRONIC RESPIRATORY FAILURE WITH HYPOXIA (9) Tremors Dispo -patient is asymptomatic and weight has been stable -noted elevated BUN and HCO3, will change to oral lasix today -also will begin to taper steroids as well since lung exam clear -patient stable for discharge -will not adjust outpatient insulin since will be tapered off of steroids -SW aware of needs and working on getting patient portable oxygen -discharge home pending portable oxygen -otherwise continue current management
--- NOTE | 2017-11-04 13:39 | EKG ---
Test Reason : Blood Pressure : / mmHG Vent. Rate : 106 BPM Atrial Rate : 104 BPM P-R Int : 000 ms QRS Dur : 156 ms QT Int : 334 ms P-R-T Axes : 000 -72 086 degrees QTc Int : 443 ms ATRIAL FIBRILLATION WITH RAPID VENTRICULAR RESPONSE RIGHT BUNDLE BRANCH BLOCK LEFT ANTERIOR FASCICULAR BLOCK BIFASCICULAR BLOCK MODERATE VOLTAGE CRITERIA FOR LVH, MAY BE NORMAL VARIANT ANTEROSEPTAL INFARCT (CITED ON OR BEFORE 27-OCT-2017) T WAVE ABNORMALITY, CONSIDER LATERAL ISCHEMIA ABNORMAL ECG WHEN COMPARED WITH ECG OF 27-OCT-2017 17:36, ATRIAL FIBRILLATION HAS REPLACED SINUS RHYTHM VENT. RATE HAS INCREASED BY 40 BPM (RBBB AND LEFT ANTERIOR FASCICULAR BLOCK) IS NOW PRESENT Confirmed by MD Quintin, Hans ([id number]) on 11/04/2017 1:39:38 PM Referred By: Brigette NEVAREZ Confirmed By:Hans Ribeiro MD
--- NOTE | 2017-11-04 14:53 | DS ---
Physical Examination Vital Signs: Vital Signs Temperature 36.8 C 11/04/17 10:00 Pulse Rate 112 H 11/04/17 10:00 Respiratory Rate 20 11/04/17 10:00 Blood Pressure 135/66 11/04/17 10:00 O2 Sat by Pulse Oximetry (%) 99 11/04/17 10:00 Labs: CBC, BMP 11/04/17 06:00 11/04/17 06:00 Discharge Summary Reason For Visit: ACUTE ON CHRONIC DIASTOLIC CONGESTIVE HEART FAILUR Current Active Problems Acute on chronic diastolic (congestive) heart failure (Acute) Atrial fibrillation (Acute) CAD (coronary artery disease) (Acute) COPD (chronic obstructive pulmonary disease) (Acute) Chronic respiratory failure with hypoxia (Acute) Hyperglycemia due to type 2 diabetes mellitus (Acute) Hypoxia (Acute) Obesity (BMI 30-39.9) (Acute) Seizure (Acute) Hospital Course: Please refer to progress note written today but in short Ms Jarrett is a pleasant 82 year old female who came in with acute on chronic hypoxic respiratory failure from CHF exacerbation and COPD exacerbation. She was admitted to the hospital and diuresed with IV lasix. She was seen by pulmonary and placed on solumedrol. She improved, however she began to have facial twitching. There was concern for acute CVA and neurology was consulted. However studies showed no acute CVA. She was placed on keppra and twitching resolved. She is currently stable to transition to oral lasix and prednisone taper. She had hyperglycemia secondary to solumedrol, however will not change her diabetic regimen as this will taper off. She is safe for discharge home. 32 minutes spent in preparation of this discharge Condition: Stable - Instructions Diet, Activity, Other Instructions: resume home oxygen. resume previous diet and activity. Referrals: Kiel Obregon MD [Staff Physician] - Derek Geller MD [Staff Physician] - Aleena Fournier MD [Primary Care Provider] - Disposition: HOME - Home Medications Comprehensive Discharge Medication List: Ambulatory Orders Insulin Lispro [Humalog] 0 unit SQ TIDCM PRN 03/02/14 Metoprolol Succinate [Toprol XL -] 25 mg PO DAILY #30 tab.sr.24h 03/11/14 Apixaban [Eliquis -] 5 mg PO BID #60 tablet 06/09/17 Insulin (Levemir) [Levemir Vial] 15 unit SQ HS 07/16/17 Furosemide [Lasix] 40 mg PO DAILY #30 tablet 07/20/17 Insulin Sliding Scale [Novolog Vial Sliding Scale -] 1 vial SQ ACHS units 07/20 Levothyroxine [Synthroid -] 25 mcg PO DAILY 10/27/17 Atorvastatin Ca [Lipitor] 40 mg PO HS #30 tablet 11/04/17 Ipratropium/Albuterol Sulfate [Combivent Respimat Inhal Mathews] 4 gm IH TID #1 aer.w.adap 11/04/17 Pantoprazole Sodium [Protonix -] 40 mg PO DAILY #30 tablet.ec 11/04/17 levETIRAcetam [Keppra -] 500 mg PO BID #60 tablet 11/04/17 predniSONE [Deltasone -] 5 mg PO ASDIR #32 tab 11/04/17
[2017-11-04 15:32] VITALS: BP 152/70; PULSE 119; TEMP 98
[2017-11-05] MEDS ORDERED: FUROSEMIDE 40 MG TABLET (FP) PO SCH (10:00)
[2017-11-05] MEDS ORDERED: predniSONE 20 MG TABLET (UD) PO SCH (10:00)
--- NOTE | 2017-12-12 11:24 | EKG ---
Test Reason : Blood Pressure : / mmHG Vent. Rate : 066 BPM Atrial Rate : 066 BPM P-R Int : 202 ms QRS Dur : 118 ms QT Int : 448 ms P-R-T Axes : 048 -56 080 degrees QTc Int : 469 ms NORMAL SINUS RHYTHM LEFT AXIS DEVIATION LEFT VENTRICULAR HYPERTROPHY WITH QRS WIDENING AND REPOLARIZATION ABNORMALITY INFERIOR INFARCT , AGE UNDETERMINED ANTERIOR INFARCT , AGE UNDETERMINED ABNORMAL ECG Confirmed by MD BRANNON GREGORY ([id number]) on 10/28/2017 1:01:07 PM Also confirmed by MD BRANNON GREGORY ([id number]), online content editor ARCHIE LOMAS ([id number]) on 12/12/2017 11:24:18 AM Referred By: Confirmed By:RAJINDER BRANNON MD
== END 2017-11-04 18:07 | disposition home or self-care (01) | DRG 291 ==
LOC: JER 15:58 → JERBED 19:04 → INTOOBSV 19:04 → J4W 22:57 → OBSVTOIN 10-28 13:22 → J4S 10-30 22:42
PROVIDERS: ADMIT Internal Medicine; ATTEND Internal Medicine
PROC: 4A00X4Z Measurement of Central Nervous Electrical Activity, External Approach (ICD-10-PCS; principal; 2017-10-31)
DX: I11.0 Hypertensive heart disease with heart failure (principal); J96.22 Acute and chronic respiratory failure with hypercapnia; J96.21 Acute and chronic respiratory failure with hypoxia; J44.1 Chronic obstructive pulmonary disease with (acute) exacerbation; I50.33 Acute on chronic diastolic (congestive) heart failure; I25.10 Atherosclerotic heart disease of native coronary artery without angina pectoris; E78.00 Pure hypercholesterolemia, unspecified; I73.89 Other specified peripheral vascular diseases; I25.2 Old myocardial infarction; E11.65 Type 2 diabetes mellitus with hyperglycemia; G47.33 Obstructive sleep apnea (adult) (pediatric); E66.9 Obesity, unspecified; R47.81 Slurred speech; R56.9 Unspecified convulsions; R25.1 Tremor, unspecified; R29.810 Facial weakness; Z68.36 Body mass index [BMI] 36.0-36.9, adult; I73.9 Peripheral vascular disease, unspecified; I48.0 Paroxysmal atrial fibrillation; R25.3 Fasciculation; E03.9 Hypothyroidism, unspecified; K21.9 Gastro-esophageal reflux disease without esophagitis; Z95.5 Presence of coronary angioplasty implant and graft; Z99.81 Dependence on supplemental oxygen; Z96.651 Presence of right artificial knee joint; Z79.4 Long term (current) use of insulin
CPT/HCPCS: 36415; 36600; 70450-TC; 70551-TC; 71045-TC-FY; 80048; 80053; 80061; 81003; 81015; 82550; 82803; 82947; 82962; 83721; 83735; 83880; 84100; 84484; 85025; 85610; 93005; 93010; 93880-TC; 94640; 94660; 97116-GP; 97161-GP; 99283-25; G0378; J7620

== ENCOUNTER 2018-04-12 10:29 | Inpatient (IN) | payer OTHER ==
--- NOTE | 2018-04-12 10:54 | PDOC ---
Attending Attestation - HPI HPI: 04/12/18 13:04 The patient is a 83 year old female with a significant past medical history of hypertension, COPD (2L of [place] baseline), diabetes, hyperlipidemia, CAD, TIA, hypoxia, and CHF who presents to the emergency department with worsening shortness of breath and coughing for 2 days. The patient reports some associated left chest pain, wheezing and chronic leg swelling and pain. The patient reports that her cough has been productive with yellow phlegm. She reports some associated chills and fever with her symptoms. The patient denies any other symptoms. He denies any nausea, vomiting, diarrhea, constipation or urinary symptoms. She denies any headache . the patient denies any other complaints. Pt uses 2 pillows to sleep at baseline and has not requird more. Documentation prepared by Kenyatta Blair, acting as biomedical engineering technologist for Raul Westfall. <Kenyatta Blair - Last Filed: 04/12/18 13:04> - Resident Resident Name: Vee Solorio - ED Attending Attestation I have performed the following: I have examined & evaluated the patient, The case was reviewed & discussed with the resident, I agree w/resident's findings & plan, Exceptions are as noted - Physicial Exam PE: 04/12/18 12:18 GENERAL: The patient is awake, alert, and fully oriented, Nontoxic - in no acute distress. HEAD: Normocephalic, atraumatic. EYES: extraocular movements intact, sclera anicteric, conjunctiva clear. ENT: Normal voice, Moist mucous membranes. NECK: Normal range of motion, supple LUNGS: Diffuse wheezing bilaterally, no acute respiratory distress HEART: Regular rate and rhythm, normal S1 and S2 without murmur, rub or gallop. ABDOMEN: Soft, nontender, No guarding, no rebound. . No CVA tenderness EXTREMITIES: Normal range of motion, b/l pitting edema, neg homans b/l NEUROLOGICAL: No facial assymetry, Normal speech, PSYCH: Normal mood, normal affect. SKIN: hot to touch , Dry, normal turgor, - Medical Decision Making 04/12/18 12:19 04/12/18 11:19 83y F hx of COPD (2L NC, baseline low 90s), DM, HTN, HL, CAD presents with increasing sob, cough for the psat 2 days without fever/chills, nasal congestion , pemoptysis, leg swelling, calf pain Patient noted febrile on arrival, sepsis order set obtained, suspect possible pneumonia versus influenza versus viral syndrome versus COPD exacerbation. Patient was given DuoNeb, steroids for her symptoms 04/12/18 13:17 The patient's lab work was reviewed there is no leukocytosis, the patient's gases noted for elevated pCO2 suspect secondary to her COPD. The patient's troponin is borderline at 0.1 patient is exhibiting no symptoms of ACS, no signs of ischemia on the patient's EKG we'll trend this. No overt signs of pneumonia on the patient's chest x-ray Will admit the patient for further management of you. Exacerbation we'll give the patient Levaquin for her COPD exacerbation <Raul Westfall - Last Filed: 04/12/18 13:18> Heart Score/ECG Review - ECG Impressions Comment:: 04/12/18 12:19 Twelve-lead EKG was performed and reviewed by me. There is normal sinus rhythm with a normal rate. Rate of 84 Left axis deviation R Bundle-branch block Q waves in inferior leads <Raul Westfall - Last Filed: 04/12/18 13:18>
[2018-04-12] MEDS ORDERED: ALBUTEROL SO4 2.5/IPRATROPIUM 0.5 INH SOL 3 ML VIAL.NEB. NEB ONE ×3 (11:01→16:10)
[2018-04-12 12:06] LABS: VENOUS PC02 66.7 mmHg (38-52); VENOUS PH 7.33 (7.32-7.42); VENOUS PO2 54.5 mmHg (28-48)
[2018-04-12 12:20] LABS: BASO % 0.3 % (0-2.0); EOS % 0.6 % (0-4.5); HEMATOCRIT 33.8 % (32.4-45.2); LYMPH % 10.7 % (8-40); MCH 21.3 pg (25.7-33.7); MCHC 32.5 g/dl (32.0-36.0); MEAN CELL VOLUME 65.6 fl (80-96); MEAN PLT VOLUME 8.6 fl (7.5-11.1); MONO % 9.6 % (3.8-10.2); NEUT % 78.8 % (42.8-82.8); PLATELET COUNT 201 K/MM3 (134-434); RBC 5.16 M/mm3 (3.60-5.2); RDW 15.2 % (11.6-15.6); WHITE BLOOD COUNT 8.7 K/mm3 (4.0-10.0)
--- NOTE | 2018-04-12 12:20 | EKG ---
Test Reason : Blood Pressure : / mmHG Vent. Rate : 084 BPM Atrial Rate : 084 BPM P-R Int : 196 ms QRS Dur : 134 ms QT Int : 442 ms P-R-T Axes : 071 -64 054 degrees QTc Int : 522 ms NORMAL SINUS RHYTHM LEFT AXIS DEVIATION RIGHT BUNDLE BRANCH BLOCK MINIMAL VOLTAGE CRITERIA FOR LVH, MAY BE NORMAL VARIANT INFERIOR INFARCT , AGE UNDETERMINED ANTEROLATERAL INFARCT (CITED ON OR BEFORE 27-OCT-2017) ABNORMAL ECG WHEN COMPARED WITH ECG OF 04-NOV-2017 12:51, NO LONGER IN ATRIAL FIBRILLATION Confirmed by BERTA DUNAWAY MD ([id number]) on 04/12/2018 12:20:24 PM Referred By: Confirmed By:BERTA DUNAWAY MD
[2018-04-12 12:22] LABS: INR 0.98 (0.83-1.09); PROTHROMBIN TIME (PATIENT) 11.6 SEC (9.7-13.0)
[2018-04-12 12:25] LABS: ACTIVATED PTT 24.6 SECONDS (25.2-36.5)
--- NOTE | 2018-04-12 12:27 | PDOC ---
History of Present Illness <Raul Westfall - Last Filed: 04/12/18 15:28> - General History Source: Patient, Family (daughter), Old Records Exam Limitations: Language Barrier - History of Present Illness Initial Comments: 04/12/18 12:22 Pt is an 83yo F with PMH of CAD s/p stent, CHF, COPD, DM, HTN, HLD BIBA for shortness of breath. Per daughter pt has been feeling SOB for the past few days but it has gotten worse. Daughter also states that pt has been having cough with production of yellow phlegm for the past few days. Pt is on 2L O2 at home and normally saturates in the high 90s but today she was in the low 90s/high 80s. Pt returned from [place] 2 weeks ago. Pt endorses SOB with productive cough and L sided chest pain associated with cough. Denies chest pain at this time. She also endorses chills. Slight pain in calves. Daughter denies fevers. Denies hemoptysis, leg swelling, hemoptysis, body aches, sick contacts. She is on Eliquis but has not had her rx filled for the past week. Sleeps with 2 pillows. PMD: Shantanu Medeirosm: Minh PMH: see hpi PSH: stent Meds: see med rec Allergies: PCN <Vee Solorio - Last Filed: 04/12/18 16:22> - General Chief Complaint: SIRS, Suspected/Possible Stated Complaint: SHORTNESS OF BREATH Time Seen by Provider: 04/12/18 10:46 Past History <Raul Westfall - Last Filed: 04/12/18 15:28> - Past Medical History Anemia: No Asthma: No Cancer: No Cardiac Disorders: Yes ([facility] with stents) CVA: No COPD: Yes (COPD) CHF: Yes DVT: No Dementia: No Diabetes: Yes GI Disorders: No Disorders: No HTN: Yes Hypercholesterolemia: No Liver Disease: No Seizures: Yes Thyroid Disease: No - Surgical History Abdominal Surgery: No Appendectomy: No Cardiac Surgery: Yes (cardiac cath with stents) Cholecystectomy: No Lung Surgery: No Neurologic Surgery: No Orthopedic Surgery: No - Family Disease History Family Disease History: Diabetes: Mother - Immunization History Immunization Up to Date: Yes - Suicide/Smoking/Psychosocial Hx Smoking History: Never smoked Have you smoked in the past 12 months: No Hx Alcohol Use: No Drug/Substance Use Hx: No Substance Use Type: None Hx Substance Use Treatment: No <Vee Solorio - Last Filed: 04/12/18 16:22> - Past Medical History Allergies/Adverse Reactions: Allergies Allergy/AdvReac Type Severity Reaction Status Date / Time Penicillins Allergy Verified 04/12/18 10:51 Apple juice Allergy Uncoded 04/12/18 10:51 Home Medications: Ambulatory Orders Insulin Lispro [Humalog] 0 unit SQ TIDCM PRN 03/02/14 Metoprolol Succinate [Toprol XL -] 25 mg PO DAILY #30 tab.sr.24h 03/11/14 Apixaban [Eliquis -] 5 mg PO BID #60 tablet 06/09/17 Insulin (Levemir) [Levemir Vial] 15 unit SQ HS 07/16/17 Furosemide [Lasix] 40 mg PO DAILY #30 tablet 07/20/17 Levothyroxine [Synthroid -] 25 mcg PO DAILY 10/27/17 Atorvastatin Ca [Lipitor] 40 mg PO HS #30 tablet 11/04/17 Ipratropium/Albuterol Sulfate [Combivent Respimat Inhal [place]] 4 gm IH TID #1 aer.w.adap 11/04/17 Pantoprazole Sodium [Protonix -] 40 mg PO DAILY #30 tablet.ec 11/04/17 Review of Systems - Review of Systems Constitutional: Yes: Chills, Weakness. No: Fever HEENTM: No: Recent change in vision, Nose Congestion, Throat Pain, Difficulty Swallowing Respiratory: Yes: See HPI, Cough, Orthopnea, Shortness of Breath, SOB at Rest, Productive cough. No: Hemoptysis Cardiac (ROS): Yes: See HPI, Chest Pain. No: Edema, Lightheadedness, Palpitations, Syncope ABD/GI: No: Constipated, Diarrhea, Nausea, Rectal Bleeding, Vomiting, Abdominal cramping : No: Burning, Dysuria Musculoskeletal: No: Back Pain, Joint Pain, Neck Pain Integumentary: No: Symptoms Reported Neurological: No: Headache, Numbness, Tingling Hematologic/Lymphatic: No: Symptoms Reported <Vee Solorio - Last Filed: 04/12/18 16:22> *Physical Exam - Vital Signs Last Vital Signs Temp Pulse Resp BP Pulse Ox 98.0 F 64 22 H 111/50 L 97 04/12/18 15:26 04/12/18 15:26 04/12/18 15:26 04/12/18 15:26 04/12/18 15:26 <Raul Westfall - Last Filed: 04/12/18 15:28> - Vital Signs Last Vital Signs Temp Pulse Resp BP Pulse Ox 100.4 F H 72 22 H 122/53 L 100 04/12/18 11:07 04/12/18 11:20 04/12/18 11:20 04/12/18 11:20 04/12/18 11:20 - Physical Exam General Appearance: Yes: Appropriately Dressed, Mild Distress, Obese HEENT: positive: EOMI, KINZA, Pharynx Normal Neck: positive: Trachea midline, Supple. negative: Carotid bruit, Lymphadenopathy (R), Lymphadenopathy (L) Respiratory/Chest: positive: Wheezing (diffuse wheezing bilaterally). negative : Lungs Clear, Accessory Muscle Use, Labored Respiration, Crackles, Rales, Rhonchi, Stridor Cardiovascular: positive: Regular Rhythm, Regular Rate, S1, S2. negative: Edema , JVD, Murmur Vascular Pulses: Carotid (R): 2+, Carotid (L): 2+, Dorsalis-Pedis (R): 1+, Doralis-Pedis (L): 1+ Gastrointestinal/Abdominal: positive: Normal Bowel Sounds, Soft. negative: Tender, Distended, Guarding, Rebound, Tenderness Musculoskeletal: negative: CVA Tenderness, Decreased Range of Motion Extremity: positive: Normal Capillary Refill, Pelvis Stable, Pedal Edema (1+), Calf Tenderness. negative: Coldness, Swelling Integumentary: positive: Normal Color, Dry, Warm. negative: Pale, Cold, Rash, Swelling Neurologic: positive: head of integrated media II-XII NML intact, Fully Oriented, Alert, Normal Mood/ Affect, Normal Response, Motor Strength 5/5 <Vee Solorio - Last Filed: 04/12/18 16:22> Moderate Sedation - Procedure Monitoring Vital Signs: Procedure Monitoring Vital Signs Temperature 98.0 F 04/12/18 15:26 Pulse Rate 64 04/12/18 15:26 Respiratory Rate 22 H 04/12/18 15:26 Blood Pressure 111/50 L 04/12/18 15:26 O2 Sat by Pulse Oximetry (%) 97 04/12/18 15:26 <Raul Westfall - Last Filed: 04/12/18 15:28> - Procedure Monitoring Vital Signs: Procedure Monitoring Vital Signs Temperature 100.4 F H 04/12/18 11:07 Pulse Rate 72 04/12/18 11:20 Respiratory Rate 22 H 04/12/18 11:20 Blood Pressure 122/53 L 04/12/18 11:20 O2 Sat by Pulse Oximetry (%) 100 04/12/18 11:20 <Vee Solorio - Last Filed: 04/12/18 16:22> ED Treatment Course - LABORATORY CBC & Chemistry Diagram: 04/12/18 11:55 04/12/18 11:08 - ADDITIONAL ORDERS Additional order review: Laboratory Results 04/12/18 04/12/18 04/12/18 11:55 11:55 11:08 PT with INR INR PTT (Actin FS) VBG pH POC VBG pCO2 POC VBG pO2 Mixed VBG HCO3 Sodium 133 L Potassium 4.7 Chloride 93 L Carbon Dioxide 33 H Anion Gap 7 L BUN 32 H Creatinine 1.3 Creat Clearance w eGFR 39.21 Random Glucose 405 H* Lactic Acid 1.7 Calcium 8.0 L Magnesium 2.0 Total Bilirubin 1.9 H AST 47 H ALT 33 Alkaline Phosphatase 93 Troponin I 0.10 H B-Natriuretic Peptide 4044.4 H Total Protein 6.9 Albumin 3.3 L 04/12/18 04/12/18 11:08 11:08 PT with INR 11.60 INR 0.98 PTT (Actin FS) 24.6 L VBG pH 7.33 POC VBG pCO2 66.7 H* POC VBG pO2 54.5 H Mixed VBG HCO3 34.3 H Sodium Potassium Chloride Carbon Dioxide Anion Gap BUN Creatinine Creat Clearance w eGFR Random Glucose Lactic Acid Calcium Magnesium Total Bilirubin AST ALT Alkaline Phosphatase Troponin I B-Natriuretic Peptide Total Protein Albumin 04/12/18 11:55 RBC 5.16 MCV 65.6 L MCHC 32.5 RDW 15.2 D MPV 8.6 Neutrophils % 78.8 Lymphocytes % 10.7 D Monocytes % 9.6 D Eosinophils % 0.6 D Basophils % 0.3 - RADIOLOGY Radiology Studies Ordered: Category Date Time Status CHEST X-RAY PORTABLE* [RAD] Stat Radiology 04/12/18 10:59 Completed - Medications Given in the ED: ED Medications Discontinued Medications Generic Name Dose Route Start Last Admin Trade Name Freq PRN Reason Stop Dose Admin Acetaminophen 1,000 mg 04/12/18 12:37 04/12/18 13:03 Ofirmev Injection - IVPB 04/12/18 12:38 1,000 mg ONCE ONE Administration Albuterol/Ipratropium 1 amp 04/12/18 11:01 04/12/18 11:20 Duoneb - NEB 04/12/18 11:02 1 amp ONCE ONE Administration Levofloxacin 750 mg in 150 mls @ 100 mls/hr 04/12/18 12:35 04/12/18 13:14 Levaquin 750 Mg Premixed Ivpb - IVPB 04/12/18 14:04 100 mls/hr ONCE ONE Administration Protocol Sodium Chloride 500 mls @ 1,000 mls/hr 04/12/18 13:41 04/12/18 15:15 Normal Saline - IV 04/12/18 14:10 1,000 mls/hr ASDIR STA Administration Insulin Human Regular 6 units 04/12/18 13:15 04/12/18 13:24 Novolin R Vial *For Ivpush Or Iv Drip Only* SQ 04/12/18 13:16 6 units ONCE ONE Administration Methylprednisolone Sodium Succinate 125 mg 04/12/18 12:32 04/12/18 12:42 Solu-Medrol - IVPUSH 04/12/18 12:33 125 mg ONCE ONE Administration <Raul Westfall - Last Filed: 04/12/18 15:28> - LABORATORY CBC & Chemistry Diagram: 04/12/18 11:55 04/12/18 11:08 - ADDITIONAL ORDERS Additional order review: Laboratory Results 04/12/18 11:08 VBG pH 7.33 POC VBG pCO2 66.7 H* POC VBG pO2 54.5 H Mixed VBG HCO3 34.3 H 04/12/18 11:55 RBC 5.16 MCV 65.6 L MCHC 32.5 RDW 15.2 D MPV 8.6 Neutrophils % 78.8 Lymphocytes % 10.7 D Monocytes % 9.6 D Eosinophils % 0.6 D Basophils % 0.3 - Medications Given in the ED: ED Medications Discontinued Medications Generic Name Dose Route Start Last Admin Trade Name Freq PRN Reason Stop Dose Admin Albuterol/Ipratropium 1 amp 04/12/18 11:01 04/12/18 11:20 Duoneb - NEB 04/12/18 11:02 1 amp ONCE ONE Administration <Vee Solorio - Last Filed: 04/12/18 16:22> Medical Decision Making - Medical Decision Making 04/12/18 12:27 Pt is an 83yo F with PMH of CAD s/p stent, CHF, COPD, DM, HTN, HLD BIBA for shortness of breath. Per daughter pt has been feeling SOB for the past few days but it has gotten worse. Daughter also states that pt has been having cough with production of yellow phlegm for the past few days. Pt is on 2L O2 at home and normally saturates in the high 90s but today she was in the low 90s/high 80s. Pt returned from [place] 2 weeks ago. Pt endorses SOB with productive cough and L sided chest pain associated with cough. Denies chest pain at this time. She also endorses chills. Daughter denies fevers. Denies hemoptysis, leg swelling, pain in calves, hemoptysis, body aches, sick contacts. She is on Eliquis but has not had her rx filled for the past week. Vitals; tachypneic, 100.4 rectal. slight hypertension. normocardic PE: diffuse wheezing bilaterally. no pitting edema. slight calf pain bilaterally R>L. DDx includes but not limited to: COPD exacerbation, CHF exacerbation, PNA, PE, dissection, PTX, ACS Pt is tachypneic and hypoxic. normotensive and normocardic. diffuse wheezing. high clinical suspicion for copd exacerbation. -Sepsis protocol started. bnp, mg ordered. Pt given Duoneb and Solu-Medrol. Tylenol for fever Pt still having wheezing. Ordered another duoneb. EKG: nsr. RBBB similar to prior EKG in October. No signs of acute ischemia CXR: chronic congestive changes. No acute pathology. 04/12/18 12:54 Lab shows normal white count. slighly elevated PaCO2 in VBG however pt has COPD , most likely chronic retention. corrected Ca 8.6 Trop elevated at 0.1 (was normal previously in October). BNP 4000s (6000s in October) . Pt started on IV Levaquin. -Pt has elevated trop and BNP, not on Eliquis for 1 week, slight calf tenderness. Will order CTA. will give 500mL fluids. Flu test negative. Gluc 404. Pt given 6u sq insulin. 04/12/18 16:02 CTA negative for PE. Shows some new patchy infiltrates. DVT study pending. Will be admitted Tele for trop trending and COPD exacerbation v. CHF exacerbation 04/12/18 16:21 Negative DVT study <Vee Solorio - Last Filed: 04/12/18 16:22> *DC/Admit/Observation/Transfer - Discharge Dispostion Decision to Admit order: Yes <Raul Westfall - Last Filed: 04/12/18 15:28> - Discharge Dispostion Decision to Admit order: Yes <Vee Solorio - Last Filed: 04/12/18 16:22> Diagnosis at time of Disposition: COPD exacerbation CHF (congestive heart failure) Qualifiers: Heart failure type: unspecified Heart failure chronicity: unspecified Qualified Code(s): I50.9 - Heart failure, unspecified - Discharge Dispostion Condition at time of disposition: Guarded
[2018-04-12] MEDS ORDERED: methylPREDNISolone NA SUCC 125 MG/2 ML VIAL IVPUSH ONE (12:32)
[2018-04-12 12:34] LABS: ALBUMIN 3.3 g/dl (3.4-5.0); ALK PHOS 93 U/L (45-117); ANION GAP 7 MMOL/L (8-16); BILIRUBIN,TOTAL 1.9 mg/dL (0.2-1); BLOOD UREA NITROGEN 32 mg/dL (7-18); CHLORIDE 93 mmol/L (98-107); CO2 33 mmol/L (21-32); CREATININE 1.3 mg/dL (0.55-1.3); POTASSIUM 4.7 mmol/L (3.5-5.1); SGOT/AST 47 U/L (15-37); SGPT/ALT 33 U/L (13-61); SODIUM 133 mmol/L (136-145); TOT PROT 6.9 g/dl (6.4-8.2)
[2018-04-12] MEDS ORDERED: methylPREDNISolone NA SUCC 125 MG/2 ML VIAL ONE (12:36)
[2018-04-12] MEDS ORDERED: ACETAMINOPHEN 1000 MG/100 ML VIAL (NON FORMULARY) IVPB ONE (12:37)
[2018-04-12] MEDS ORDERED: ACETAMINOPHEN INJECTION 100 ML IVPB ONE (12:43)
[2018-04-12 13:00] LABS: GLUCOSE,RANDOM 405 mg/dL (74-106)
[2018-04-12] MEDS ORDERED: INSULIN REGULAR HUMAN 100 UNITS/ML *VIAL SQ ONE (13:15)
[2018-04-12 13:18] LABS: N-TERMINAL BNP 4044.4 pg/ml (5-450)
[2018-04-12] MEDS ORDERED: INSULIN REGULAR HUMAN 100 UNITS/ML *VIAL ONE (13:22)
[2018-04-12 13:24] LABS: ANISOCYTOSIS 2+; MACROCYTOSIS 0; PLATELET ESTIMATE NORMAL; TEAR DROP CELLS 1+
[2018-04-12] MEDS ORDERED: SODIUM CHLORIDE 500 ML IV STA (13:41)
[2018-04-12] MEDS ORDERED: ACETAMINOPHEN 325 MG TABLET (FP) PO PRN (14:17)
--- NOTE | 2018-04-12 14:31 | HP ---
Admitting History and Physical - Primary Care Physician PCP: Aleena Fournier - Admission Chief Complaint: I'm coughing History of Present Illness: Ms Kolby Sharp is a pleasant 83 year old female who comes in with 7 day history of coughing with shortness of breath. She says she was in [place] for a month and came back 2 weeks ago. She was doing well, but then last week she became short of breath and developed a productive cough. She says she is short of breath both at rest and with exertion. At first her cough was dry but now it is productive of a clear sputum. She denied chest pain to me but endorsed it to the ER resident. She says her legs are not swollen but has pain in both pain. This pain is chronic, however upon further investigation she notes worsening pain in her RLE on exertion. The pain extends up to her knee in her right leg. She denies fevers, chills, lightheadedness, dizziness, passing out, abdominal pain, nausea, vomiting, diarrhea, constipation, difficulty or pain on urination , or numbness. Of note she ran out of her eliquis about 1 week ago secondary to her pharmacy not having it. 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) Cardiovascular: Yes: AFIB, CAD, CHF, HTN, [place] Gastrointestinal: Yes: GERD, Hiatal Hernia Endocrine: Yes: Hypothyroidism - Smoking History Smoking history: Never smoked Have you smoked in the past 12 months: No - Alcohol/Substance Use Hx Alcohol Use: No History of Substance Use: reports: None - Social History ADL: Family Assistance History of Recent Travel: Yes (arrived from [place] 2 months ago) Home Medications - Allergies Allergies/Adverse Reactions: Allergies Allergy/AdvReac Type Severity Reaction Status Date / Time Penicillins Allergy Verified 04/12/18 10:51 Apple juice Allergy Uncoded 04/12/18 10:51 - Home Medications Home Medications: Ambulatory Orders Insulin Lispro [Humalog] 0 unit SQ TIDCM PRN 03/02/14 Metoprolol Succinate [Toprol XL -] 25 mg PO DAILY #30 tab.sr.24h 03/11/14 Apixaban [Eliquis -] 5 mg PO BID #60 tablet 06/09/17 Insulin (Levemir) [Levemir Vial] 15 unit SQ HS 07/16/17 Furosemide [Lasix] 40 mg PO DAILY #30 tablet 07/20/17 Levothyroxine [Synthroid -] 25 mcg PO DAILY 10/27/17 Atorvastatin Ca [Lipitor] 40 mg PO HS #30 tablet 11/04/17 Ipratropium/Albuterol Sulfate [Combivent Respimat Inhal [place]] 4 gm IH TID #1 aer.w.adap 11/04/17 Pantoprazole Sodium [Protonix -] 40 mg PO DAILY #30 tablet.ec 11/04/17 Family Disease History - Family Disease History Family History: Unable to Obtain (asked, patient spoke only of her leg pain) Review of Systems Findings/Remarks: Full review of systems obtained, as per HPI and otherwise negative Physical Examination Vital Signs: Vital Signs Temperature 38.0 C H 04/12/18 11:07 Pulse Rate 72 04/12/18 11:20 Respiratory Rate 22 H 04/12/18 11:20 Blood Pressure 122/53 L 04/12/18 11:20 O2 Sat by Pulse Oximetry (%) 100 04/12/18 11:20 Constitutional: Yes: No Distress, Calm, Obese Eyes: Yes: Conjunctiva Clear, EOM Intact, PERRL HENT: Yes: Atraumatic, Normocephalic Cardiovascular: Yes: Regular Rate and Rhythm. No: Gallop, Murmur, Rub Respiratory: Yes: Regular, Wheezes (in all lung greer). No: CTA Bilaterally, Rales, Rhonchi, Tachypnea Gastrointestinal: Yes: Normal Bowel Sounds, Soft. No: Distention, Tenderness Extremities: Yes: Erythema (R>L), Other (pain with palpation of RLE) Edema: Yes Edema: RLE: Trace Labs: CBC, BMP 04/12/18 11:55 04/12/18 11:08 Imaging - Results Chest X-ray: Report Reviewed, Image Reviewed Cat Scan: Pending Ultrasound: Pending Problem List - Problems (1) Pneumonia Assessment/Plan: -community acquired -levaquin renally dosed -cause of COPD exacerbation Code(s): J18.9 - PNEUMONIA, UNSPECIFIED ORGANISM Qualifiers: Pneumonia type: due to unspecified organism Laterality: right Lung location: middle lobe of lung Qualified Code(s): J18.1 - Lobar pneumonia, unspecified organism (2) COPD exacerbation Assessment/Plan: -patient presents with COPD exacerbation -pneumonia noted on CT scan -admit to hospital -solumedrol 40mg IV q6h -levaquin renally dosed -duonebs qid -prn albuterol -will place on inhaled corticosteroids on discharge Code(s): J44.1 - CHRONIC OBSTRUCTIVE PULMONARY DISEASE W (ACUTE) EXACERBATION (3) Acute on chronic respiratory failure with hypoxemia Assessment/Plan: -treatment as above -continue oxygen support Code(s): J96.21 - ACUTE AND CHRONIC RESPIRATORY FAILURE WITH HYPOXIA (4) Atrial fibrillation Assessment/Plan: -currently in sinus rhythm on exam -continue toprol xl -restart eliquis 5mg bid Code(s): I48.91 - UNSPECIFIED ATRIAL FIBRILLATION Qualifiers: Atrial fibrillation type: paroxysmal Qualified Code(s): I48.0 - Paroxysmal atrial fibrillation (5) CAD (coronary artery disease) Assessment/Plan: -continue toprol xl -slightly elevated troponin -CT scan PE protocol negative -trend troponins -if continues to elevate, will consult cardiology -ok for eliquis but may need to change to heparin gtt Code(s): I25.10 - ATHSCL HEART DISEASE OF [place] CORONARY ARTERY W/O ANG PCTRS Qualifiers: Coronary Disease-Associated Artery/Lesion type: ruby artery [place] vs. transplanted heart: ruby heart Associated angina: without angina Qualified Code(s): I25.10 - Atherosclerotic heart disease of [place] coronary artery without angina pectoris (6) Diabetes mellitus Assessment/Plan: -hyperglycemic on presentation -will worsen with steroids -continue levemir -will place on FSBS and SSI -diabetic diet -chronic pain may be secondary to neuropathy -consider gabapentin Code(s): E11.9 - TYPE 2 DIABETES MELLITUS WITHOUT COMPLICATIONS Qualifiers: Diabetes mellitus type: type 2 Diabetes mellitus custodial insulin use: with custodial use Diabetes mellitus complication status: with hyperglycemia Qualified Code(s): E11.65 - Type 2 diabetes mellitus with hyperglycemia; 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 (7) HTN (hypertension) Assessment/Plan: -currently well controlled -continue home regimen -may see transient increase while on high dose steroids Code(s): I10 - ESSENTIAL (PRIMARY) HYPERTENSION Qualifiers: Hypertension type: essential hypertension Qualified Code(s): I10 - Essential (primary) hypertension (8) Hyperlipidemia Assessment/Plan: -continue lipitor Code(s): E78.5 - HYPERLIPIDEMIA, UNSPECIFIED Qualifiers: Hyperlipidemia type: pure hypercholesterolemia Qualified Code(s): E78.00 - Pure hypercholesterolemia, unspecified; E78.0 - Pure hypercholesterolemia (9) Hypothyroid Assessment/Plan: -continue synthroid Code(s): E03.9 - HYPOTHYROIDISM, UNSPECIFIED
[2018-04-12] MEDS ORDERED: methylPREDNISolone NA SUCC 40 MG/1 ML VIAL IVPUSH SCH (15:00)
[2018-04-12] MEDS: ALBUTEROL SO4 2.5/IPRATROPIUM 0.5 INH SOL 3 ML VIAL.NEB. NEB SCH ×2 (16:06→21:00)
[2018-04-12] MEDS: methylPREDNISolone NA SUCC 40 MG/1 ML VIAL IVPUSH SCH ×2 (17:15→21:36)
[2018-04-12] MEDS ORDERED: INSULIN (NOVOLOG) ASPART 100 UNITS/ML 10ML VIAL ONE (17:16)
[2018-04-12] MEDS: INSULIN SLIDING SCALE (NOVOLOG) 1 VIAL SQ SCH ×2 (17:17→21:41)
[2018-04-12] MEDS: APIXABAN 5 MG TABLET PO SCH (21:37)
[2018-04-12] MEDS: ATORVASTATIN CA 40 MG TABLET (FP) PO SCH (21:37)
[2018-04-12] MEDS ORDERED: INSULIN (LEVEMIR) 100 UNITS/ML UNITS SQ SCH ×2 (22:00)
[2018-04-13] MEDS: methylPREDNISolone NA SUCC 40 MG/1 ML VIAL IVPUSH SCH ×4 (02:44→21:12)
[2018-04-13] MEDS: ALBUTEROL SO4 0.083% IH SOL 2.5 MG/3 ML VIAL.NEB. NEB PRN (05:58)
[2018-04-13] MEDS: INSULIN SLIDING SCALE (NOVOLOG) 1 VIAL SQ SCH ×4 (06:33→21:39)
[2018-04-13 06:54] LABS: BASO % 0.1 % (0-2.0); HEMATOCRIT 35.5 % (32.4-45.2); HEMOGLOBIN 10.8 GM/dL (10.7-15.3); MCH 20.3 pg (25.7-33.7); MCHC 30.5 g/dl (32.0-36.0); MEAN CELL VOLUME 66.6 fl (80-96); MEAN PLT VOLUME 8.3 fl (7.5-11.1); MONO % 0.8 % (3.8-10.2); NEUT % 89.1 % (42.8-82.8); PLATELET COUNT 209 K/MM3 (134-434); RBC 5.33 M/mm3 (3.60-5.2); RDW 15.8 % (11.6-15.6); WHITE BLOOD COUNT 7.9 K/mm3 (4.0-10.0)
[2018-04-13 07:25] LABS: ANION GAP 6 MMOL/L (8-16); BLOOD UREA NITROGEN 38 mg/dL (7-18); CALCIUM 8.2 mg/dL (8.5-10.1); CHLORIDE 95 mmol/L (98-107); CO2 33 mmol/L (21-32); CREATININE 1.4 mg/dL (0.55-1.3); MAGNESIUM 2.3 mg/dL (1.8-2.4); PHOSPHOROUS 4.3 mg/dL (2.5-4.9); POTASSIUM 4.9 mmol/L (3.5-5.1); SODIUM 134 mmol/L (136-145)
[2018-04-13] MEDS: ALBUTEROL SO4 2.5/IPRATROPIUM 0.5 INH SOL 3 ML VIAL.NEB. NEB SCH ×2 (08:25→12:25)
[2018-04-13 08:59] LABS: GLUCOSE,RANDOM 410 mg/dL (74-106)
[2018-04-13] MEDS: APIXABAN 5 MG TABLET PO SCH ×2 (09:42→21:12)
[2018-04-13] MEDS: PANTOPRAZOLE 40 MG TABLET (FP) PO SCH (09:42)
[2018-04-13] MEDS: LEVOTHYROXINE NA 25 MCG TABLET (FP) PO SCH (09:42)
[2018-04-13] MEDS: LACTOBACILLUS ACIDOPHILUS 1 TABLET PO SCH (09:42)
[2018-04-13] MEDS: metoPROLOL SUCCINATE 25 MG TAB.SR.24H (FP) PO SCH (09:43)
--- NOTE | 2018-04-13 09:57 | EKG ---
Test Reason : Blood Pressure : / mmHG Vent. Rate : 072 BPM Atrial Rate : 072 BPM P-R Int : 136 ms QRS Dur : 146 ms QT Int : 498 ms P-R-T Axes : 074 -67 065 degrees QTc Int : 545 ms NORMAL SINUS RHYTHM RIGHT BUNDLE BRANCH BLOCK LEFT ANTERIOR FASCICULAR BLOCK BIFASCICULAR BLOCK LEFT VENTRICULAR HYPERTROPHY WITH REPOLARIZATION ABNORMALITY ANTERIOR INFARCT (CITED ON OR BEFORE 27-OCT-2017) ABNORMAL ECG WHEN COMPARED WITH ECG OF 12-APR-2018 10:49, NO SIGNIFICANT CHANGE WAS FOUND Confirmed by TELMA FRANK MD ([id number]) on 04/13/2018 9:57:25 AM Referred By: Confirmed By:TELMA FRANK MD
--- NOTE | 2018-04-13 09:57 | EKG ---
Test Reason : Blood Pressure : / mmHG Vent. Rate : 084 BPM Atrial Rate : 084 BPM P-R Int : 188 ms QRS Dur : 142 ms QT Int : 446 ms P-R-T Axes : 063 -71 053 degrees QTc Int : 527 ms NORMAL SINUS RHYTHM LEFT AXIS DEVIATION RIGHT BUNDLE BRANCH BLOCK INFERIOR INFARCT , AGE UNDETERMINED ABNORMAL ECG WHEN COMPARED WITH ECG OF 12-APR-2018 21:40, NO SIGNIFICANT CHANGE WAS FOUND Confirmed by MONIKA PETTIT, TELMA ([id number]) on 04/13/2018 9:57:09 AM Referred By: Confirmed By:TELMA FRANK MD
[2018-04-13] MEDS ORDERED: FUROSEMIDE 40 MG TABLET (FP) PO SCH (10:00)
--- NOTE | 2018-04-13 10:15 | PN ---
Progress Note, Physician Chief Complaint: Pt sitting in bed. C/o intermittent substernal burning/tightness w/ accompanying sob since last night, Pt poor historian, unable to state if worsened by inspiration or whether radiating. Pt reports discomfort is slightly improved. Denies any nausea, vomiting, unilateral weakness. - Current Medication List Current Medications: Active Medications Acetaminophen (Tylenol -) 650 mg PO Q4H PRN PRN Reason: FEVER Albuterol Sulfate (Ventolin 0.083% Nebulizer Soln -) 1 amp NEB Q4H PRN PRN Reason: SHORT OF BREATH/WHEEZING Last Admin: 04/13/18 05:58 Dose: 1 amp Albuterol/Ipratropium (Duoneb -) 1 amp NEB RQID RYANN Last Admin: 04/13/18 08:25 Dose: 1 amp Apixaban (Eliquis -) 5 mg PO BID RYANN Last Admin: 04/13/18 09:42 Dose: 5 mg Atorvastatin Calcium (Lipitor -) 40 mg PO HS RYANN Last Admin: 04/12/18 21:37 Dose: 40 mg Levofloxacin (Levaquin 250 Mg Premixed Ivpb -) 250 mg in 50 mls @ 50 mls/hr IVPB DAILY [facility]; Protocol Last Admin: 04/13/18 09:42 Dose: 50 mls/hr Insulin Aspart (Novolog Vial Sliding Scale -) 0 vial SQ ACHS RYANN; Protocol Last Admin: 04/13/18 06:33 Dose: 10 unit Insulin Detemir (Levemir Vial) 15 units SQ HS RYANN Last Admin: 04/12/18 21:41 Dose: 15 units Lactobacillus Acidophilus (Bacid -) 1 tab PO DAILY RYANN Last Admin: 04/13/18 09:42 Dose: 1 tab Levothyroxine Sodium (Synthroid -) 25 mcg PO DAILY RYANN Last Admin: 04/13/18 09:42 Dose: 25 mcg Methylprednisolone Sodium Succinate (Solu-Medrol -) 40 mg IVPUSH Q6H-IV RYANN Last Admin: 04/13/18 09:43 Dose: 40 mg Metoprolol Succinate (Toprol Xl -) 25 mg PO DAILY RYANN Last Admin: 04/13/18 09:43 Dose: 25 mg Pantoprazole Sodium (Protonix -) 40 mg PO DAILY RYANN Last Admin: 04/13/18 09:42 Dose: 40 mg - Objective Vital Signs: Vital Signs Temperature 98.3 F 04/13/18 09:15 Pulse Rate 76 04/13/18 09:15 Respiratory Rate 22 H 04/13/18 09:15 Blood Pressure 179/87 H 04/13/18 09:15 O2 Sat by Pulse Oximetry (%) 97 04/13/18 09:15 Constitutional: Yes: Well Nourished, No Distress, Anxious Cardiovascular: Yes: Regular Rate and Rhythm Respiratory: Yes: Regular, Cough, Diminished, On Nasal O2, Rhonchi, SOB. No: Accessory Muscle Use, Wheezes Gastrointestinal: Yes: WNL, Normal Bowel Sounds, Soft. No: Distention, Tenderness Genitourinary: Yes: WNL Edema: Yes Edema: LLE: Trace, RLE: Trace Neurological: Yes: WNL, Alert, Oriented Psychiatric: Yes: WNL, Alert, Oriented Labs: CBC, BMP 04/13/18 05:30 04/13/18 05:30 INR, PTT INR 0.98 (0.83-1.09) 04/12/18 11:08 Problem List - Problems (1) Pneumonia Assessment/Plan: community acquired wbc wnl levaquin day 2 Code(s): J18.9 - PNEUMONIA, UNSPECIFIED ORGANISM Qualifiers: Pneumonia type: due to unspecified organism Laterality: right Lung location: middle lobe of lung Qualified Code(s): J18.1 - Lobar pneumonia, unspecified organism (2) Acute on chronic respiratory failure with hypoxemia Assessment/Plan: 2/2 copd exacerbation, pna O2 via nc medrol, bronchodilators abg ordered pulm following Code(s): J96.21 - ACUTE AND CHRONIC RESPIRATORY FAILURE WITH HYPOXIA (3) COPD exacerbation Assessment/Plan: triggered by copd exacerb O2 dependent as above Code(s): J44.1 - CHRONIC OBSTRUCTIVE PULMONARY DISEASE W (ACUTE) EXACERBATION (4) JOLIE (acute kidney injury) Assessment/Plan: suspect prerenal hold lasix monitor bmp Code(s): N17.9 - ACUTE KIDNEY FAILURE, UNSPECIFIED (5) Chest pain Assessment/Plan: suspect atypical, 2/2 pna improved since last night trop repeated- peaked ekg without changes cardiology following Code(s): R07.9 - CHEST PAIN, UNSPECIFIED (6) CHF (congestive heart failure) Assessment/Plan: not in acute exacerbation lasix on hold due to jolie cardiology following Code(s): I50.9 - HEART FAILURE, UNSPECIFIED Qualifiers: Heart failure type: combined systolic and diastolic Heart failure chronicity: chronic Qualified Code(s): I50.42 - Chronic combined systolic ( congestive) and diastolic (congestive) heart failure (7) Hypothyroid Assessment/Plan: stable continue synthroid Code(s): E03.9 - HYPOTHYROIDISM, UNSPECIFIED (8) CAD (coronary artery disease) Assessment/Plan: no acute ACS continue statin, ac Code(s): I25.10 - ATHSCL HEART DISEASE OF [place] CORONARY ARTERY W/O ANG PCTRS Qualifiers: Coronary Disease-Associated Artery/Lesion type: [place] artery [place] vs. transplanted heart: [place] heart Associated angina: without angina Qualified Code(s): I25.10 - Atherosclerotic heart disease of [place] coronary artery without angina pectoris (9) Diabetes Assessment/Plan: uncontrolled inpt 2/2 iv steroids bgm, levemir increased to bid insulin sliding scale monitor Code(s): E11.9 - TYPE 2 DIABETES MELLITUS WITHOUT COMPLICATIONS Qualifiers: Diabetes mellitus type: type 2 Diabetes mellitus correction insulin use: with taker off use Diabetes mellitus complication status: with hyperglycemia Qualified Code(s): E11.65 - Type 2 diabetes mellitus with hyperglycemia; Z79.4 - detention (current) use of insulin (10) Atrial fibrillation Assessment/Plan: chronic continue metoprolol, eliquis Code(s): I48.91 - UNSPECIFIED ATRIAL FIBRILLATION Qualifiers: Atrial fibrillation type: chronic Qualified Code(s): I48.2 - Chronic atrial fibrillation (11) Hyperlipidemia Assessment/Plan: stable continue statin Code(s): E78.5 - HYPERLIPIDEMIA, UNSPECIFIED Qualifiers: Hyperlipidemia type: pure hypercholesterolemia Qualified Code(s): E78.00 - Pure hypercholesterolemia, unspecified; E78.0 - Pure hypercholesterolemia (12) HTN (hypertension) Assessment/Plan: controlled intermittently elevated- suspect anxiety induced continue home regimen Code(s): I10 - ESSENTIAL (PRIMARY) HYPERTENSION Qualifiers: Hypertension type: essential hypertension Qualified Code(s): I10 - Essential (primary) hypertension
[2018-04-13] MEDS ORDERED: INSULIN (NOVOLOG) ASPART 100 UNITS/ML 10ML VIAL SQ ONE ×2 (10:36→16:29)
[2018-04-13] MEDS ORDERED: RANITIDINE HCL 150 MG/10 ML UNIT-DOSE PO ONE (10:37)
--- NOTE | 2018-04-13 11:15 | CON.CARD ---
Consult Consult Specialty:: cardio - History of Present Illness Chief Complaint: cp History of Present Illness: 83 F admitted with subacute productive cough and sob. dx'd with PNA and copd exacerbation. this am describes cp. says it's not "pain" rather burning and squeezing. denies acid feeling. 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) Cardio/Vascular: Yes: AFIB, CAD, CHF, HTN, [place] Gastrointestinal: Yes: GERD, Hiatal Hernia ...: No Endocrine: Yes: Hypothyroidism - Alcohol/Substance Use Hx Alcohol Use: No History of Substance Use: reports: None - Smoking History Smoking history: Never smoked Have you smoked in the past 12 months: No - Social History ADL: Family Assistance History of Recent Travel: Yes (arrived from [place] 2 months ago) Home Medications - Allergies Allergies/Adverse Reactions: Allergies Allergy/AdvReac Type Severity Reaction Status Date / Time Penicillins Allergy Verified 04/12/18 10:51 Apple juice Allergy Uncoded 04/12/18 10:51 - Home Medications Home Medications: Ambulatory Orders Insulin Lispro [Humalog] 0 unit SQ TIDCM PRN 03/02/14 Metoprolol Succinate [Toprol XL -] 25 mg PO DAILY #30 tab.sr.24h 03/11/14 Apixaban [Eliquis -] 5 mg PO BID #60 tablet 06/09/17 Insulin (Levemir) [Levemir Vial] 15 unit SQ HS 07/16/17 Furosemide [Lasix] 40 mg PO DAILY #30 tablet 07/20/17 Levothyroxine [Synthroid -] 25 mcg PO DAILY 10/27/17 Atorvastatin Ca [Lipitor] 40 mg PO HS #30 tablet 11/04/17 Ipratropium/Albuterol Sulfate [Combivent Respimat Inhal [place]] 4 gm IH TID #1 aer.w.adap 11/04/17 Pantoprazole Sodium [Protonix -] 40 mg PO DAILY #30 tablet.ec 11/04/17 Family Disease History - Family Disease History Family History: Denies (no known cmp) Review of Systems - Review of Systems Constitutional: denies: Chills, Fever Eyes: denies: Eye Pain HENT: denies: Nasal Congestion Neck: denies: Stiffness Cardiovascular: denies: Palpitations Respiratory: denies: Orthopnea, PND Gastrointestinal: denies: Diarrhea, Rectal Bleeding Genitourinary: denies: Burning, Hematuria Musculoskeletal: denies: Muscle Pain Integumentary: denies: Rash Neurological: denies: Numbness, Seizure, Syncope Endocrine: denies: Excessive Sweating Hematology/Lymphatic: denies: Excessive Bleeding Vital Signs: Vital Signs Temperature 98.3 F 04/13/18 09:15 Pulse Rate 92 H 04/13/18 10:53 Respiratory Rate 23 H 04/13/18 10:53 Blood Pressure 121/54 L 04/13/18 10:53 O2 Sat by Pulse Oximetry (%) 97 04/13/18 09:15 Constitutional: Yes: Well Nourished, No Distress, Obese Eyes: No: Sclera Icterus HENT: No: Nasal Congestion Neck: No: Decreased ROM Respiratory: Yes: Regular, Wheezes (diffuse). No: Accessory Muscle Use, Rales Gastrointestinal: Yes: Normal Bowel Sounds. No: Distention, Hepatomegaly, Palpable Mass, Tenderness Cardiovascular: Yes: Regular Rate and Rhythm JVD: No Carotid Bruit: No PMI: Non-Displaced Heart Sounds: Yes: S1, S2. No: Gallop Murmur: No: Systolic Murmur, Diastolic Murmur Musculoskeletal: Yes: Other (No kyphosis) Extremities: No: Cold, Cyanosis Edema: No Peripheral Pulses: 2+ Left Carotid, 2+ Right Carotid, 2+ Left Doralis Pedis, 2+ Right Dorsalis Pedis Integumentary: No: Jaundice Neurological: Yes: Alert, Oriented (x3) Psychiatric: No: Agitated - Other Data Labs, Other Data: CBC, BMP 04/13/18 05:30 04/13/18 05:30 INR, PTT INR 0.98 (0.83-1.09) 04/12/18 11:08 Troponin, BNP 04/12/18 04/12/18 04/13/18 11:55 19:50 05:30 Troponin I 0.10 H 0.27 H 0.14 H B-Natriuretic Peptide 4044.4 H Troponin, BNP 04/12/18 04/12/18 04/13/18 11:55 19:50 05:30 Troponin I 0.10 H 0.27 H 0.14 H B-Natriuretic Peptide 4044.4 H Laboratory Tests 04/12/18 04/12/18 04/12/18 11:08 11:55 19:50 WBC Hgb Plt Count Sodium Potassium Carbon Dioxide BUN Creatinine AST 47 H ALT 33 Troponin I 0.10 H 0.27 H B-Natriuretic Peptide 4044.4 H Albumin 3.3 L 04/13/18 04/13/18 04/13/18 05:30 05:30 05:30 WBC 7.9 Hgb 10.8 Plt Count 209 Sodium 134 L Potassium 4.9 Carbon Dioxide 33 H BUN 38 H Creatinine 1.4 H AST ALT Troponin I 0.14 H B-Natriuretic Peptide Albumin Assessment/Plan ECG #1 04/12: NSR, RBBB, ? old IWMI, ? old AWMI--no change vs 11/12 #2 04/12: no change 04/13: no change CTA chest 04/14: mild dilated PA suggestive of pulm HTN. RLL opacity, patchy opacities elsewhere. no pulm edema or effusion LHC/PCI 10/2013: mid LAD and Diag YURIY PCI, residual prox LCX 90-95% calcific and only 30-50% dist LM disease MPI 10/2017 (gillian): no STs. anteroseptal and inferolateral infarcts. no ischemia. EF 38%. Echo 04/2017: mild dec lvef, apical hk. nl rv. mod mr, mild-mod tr, mild as, rvsp 40-50 Echo 10/2013 : mildly reduced LVF, apical severe HK, anterior mod HK, mild to mod MR, mild to mod TR, RVSP 50-60 tele: NSR a/p: 82 yr old lady with known CAD/pci, chf, HTN, HPL, DM, pad, obesity, pafib (dx 05/2017 when admitted for copd) sent from pmd for low 02 sat a.e. copd, PNA: -per hospitalist chronic mixed diastolic/systolic CHF: -chronic, mild LV hypokinesis unchanged on recent echo 2017 -here with low o2 sat (85%) -bnp 4K, prior range 7K-18K. CT chest without congestion -here with presentation equivocal for acute chf 11/12 (in setting of copd exacerbation), treated with lasix 40 IV qd. CAD s/p PCI, atypical CP -pt s/p rota YURIY PCI of mid LAD and Diag 2013, residual prox LCX 90-95% calcific --medically managed -Has been stable, no anginal sxs. -atypical cp symptoms on prior admits, last 11/12 with enzymes neg, no acute isch ecg at that time -currently with non-exertiona chest burning/squeezing sensation. trop 0.1-0.2- 0.1 is indeterminate range, flat trend, not c/w ACS -ECG's here unchanged vs prior, including repeat this AM. -recent nuclear stress test with no demonstrable ischemia (fixed defects, as above) -sx's may be due to ongoing airways restriction/copd exacerbation/PNA. -observe sx's, consider dobutamine stress echo if sx's continue -Cont home regimen: bb, statin, ac (no ASA per prior dr sorensen mgmt plan) JOLIE: -creat up above baseline, 1.4 here -per hospitalist HTN: -bp mostly controlled -same meds pafib: -in sinus here. cont home toprol -cont eliquis 5 bid for AC PAD: -known occluded R SFA on 2015 periph angiogram, with dz on L below knee -routine outpt f/u
--- NOTE | 2018-04-13 12:09 | PN ---
Progress Note (short form) - Note Progress Note: PULMONARY CONSULTATION DICTATED 04/13/17 IMP ACUTE ON CHRONIC HYPOXEMIC/HYPERCAPNEIC RESPIRATORY FAILURE ASTHMA/COPD EXACERBATION PNEUMONIA CHF JOLIE + TROPONIN ASHD S/P STENTS DM HTM HYPOTHYROID PLAN IV STEROIDS INHALED BRONCHODILATORS SUPPLEMENTAL O2 NIPPV IF PT DEVELOPES INCREASED RESPIRATORY DISTRESS CULTURES ABG TREND TROPONINS MONITOR LYTES,RENAL FUNCTION PFTS OUTPATIENT DR CAAL Problem List - Problems (1) CHF (congestive heart failure) Code(s): I50.9 - HEART FAILURE, UNSPECIFIED Qualifiers: Heart failure type: combined systolic and diastolic Heart failure chronicity: chronic Qualified Code(s): I50.42 - Chronic combined systolic ( congestive) and diastolic (congestive) heart failure (2) COPD exacerbation Code(s): J44.1 - CHRONIC OBSTRUCTIVE PULMONARY DISEASE W (ACUTE) EXACERBATION (3) Hypothyroid Code(s): E03.9 - HYPOTHYROIDISM, UNSPECIFIED (4) Pneumonia Code(s): J18.9 - PNEUMONIA, UNSPECIFIED ORGANISM Qualifiers: Pneumonia type: due to unspecified organism Laterality: right Lung location: middle lobe of lung Qualified Code(s): J18.1 - Lobar pneumonia, unspecified organism (5) Acute on chronic respiratory failure with hypoxia and hypercapnia Code(s): J96.21 - ACUTE AND CHRONIC RESPIRATORY FAILURE WITH HYPOXIA; J96.22 - ACUTE AND CHRONIC RESPIRATORY FAILURE WITH HYPERCAPNIA (6) Atrial fibrillation Code(s): I48.91 - UNSPECIFIED ATRIAL FIBRILLATION Qualifiers: Atrial fibrillation type: paroxysmal Qualified Code(s): I48.0 - Paroxysmal atrial fibrillation (7) CAD (coronary artery disease) Code(s): I25.10 - ATHSCL HEART DISEASE OF [place] CORONARY ARTERY W/O ANG PCTRS Qualifiers: Coronary Disease-Associated Artery/Lesion type: [place] artery [place] vs. transplanted heart: [place] heart Associated angina: without angina Qualified Code(s): I25.10 - Atherosclerotic heart disease of [place] coronary artery without angina pectoris (8) HTN (hypertension) Code(s): I10 - ESSENTIAL (PRIMARY) HYPERTENSION Qualifiers: Hypertension type: essential hypertension Qualified Code(s): I10 - Essential (primary) hypertension (9) Hyperglycemia due to type 2 diabetes mellitus Code(s): E11.65 - TYPE 2 DIABETES MELLITUS WITH HYPERGLYCEMIA (10) Obesity (BMI 30-39.9) Code(s): E66.9 - OBESITY, UNSPECIFIED
[2018-04-13 13:44] LABS: ARTERIAL BLD GAS O2 SATURATION 97.7 % (90-98.9); ARTERIAL BLOOD GAS BASE EXCESS 3.4 meq/l (-2-2); ARTERIAL BLOOD GAS pH 7.33 (7.35-7.45)
[2018-04-13 13:54] LABS: ALLENS TEST POSITIVE
[2018-04-13 20:03] LABS: CALCIUM 8.4 mg/dL (8.5-10.1); CO2 30 mmol/L (21-32)
[2018-04-13 20:04] LABS: ANION GAP 8 MMOL/L (8-16); BLOOD UREA NITROGEN 51 mg/dL (7-18); CHLORIDE 94 mmol/L (98-107); CREATININE 1.9 mg/dL (0.55-1.3); POTASSIUM 4.5 mmol/L (3.5-5.1); SODIUM 132 mmol/L (136-145)
[2018-04-13 20:06] LABS: GLUCOSE,RANDOM 500 mg/dL (74-106)
[2018-04-13] MEDS ORDERED: SODIUM CHLORIDE 1,000 ML IV SCH (20:30)
[2018-04-13] MEDS: ARFORMOTEROL TARTRATE 15 MCG/2 ML VIAL NEB SCH (20:54)
[2018-04-13] MEDS ORDERED: INSULIN (NOVOLOG) ASPART 100 UNITS/ML 10ML VIAL ONE (21:03)
[2018-04-13] MEDS: ATORVASTATIN CA 40 MG TABLET (FP) PO SCH (21:12)
[2018-04-13] MEDS: INSULIN (LEVEMIR) 100 UNITS/ML UNITS SQ SCH (21:24)
[2018-04-13] MEDS ORDERED: INSULIN (LEVEMIR) 100 UNITS/ML UNITS SQ SCH (22:00)
[2018-04-14] MEDS ORDERED: INSULIN (NOVOLOG) ASPART 100 UNITS/ML 10ML VIAL SQ ONE ×2 (00:22→12:30)
[2018-04-14] MEDS: methylPREDNISolone NA SUCC 40 MG/1 ML VIAL IVPUSH SCH ×4 (03:55→22:02)
[2018-04-14] MEDS: INSULIN (LEVEMIR) 100 UNITS/ML UNITS SQ SCH ×2 (06:29→22:02)
[2018-04-14] MEDS: INSULIN SLIDING SCALE (NOVOLOG) 1 VIAL SQ SCH ×4 (06:29→22:03)
[2018-04-14] MEDS: LEVOTHYROXINE NA 25 MCG TABLET (FP) PO SCH ×2 (06:33→09:51)
[2018-04-14 07:03] LABS: BASO % 0.2 % (0-2.0); HEMATOCRIT 32.2 % (32.4-45.2); HEMOGLOBIN 10.5 GM/dL (10.7-15.3); LYMPH % 6.1 % (8-40); MCH 21.4 pg (25.7-33.7); MCHC 32.7 g/dl (32.0-36.0); MEAN CELL VOLUME 65.5 fl (80-96); MEAN PLT VOLUME 8.6 fl (7.5-11.1); MONO % 5.1 % (3.8-10.2); NEUT % 88.6 % (42.8-82.8); PLATELET COUNT 240 K/MM3 (134-434); RBC 4.92 M/mm3 (3.60-5.2); RDW 15.1 % (11.6-15.6); WHITE BLOOD COUNT 7.9 K/mm3 (4.0-10.0)
[2018-04-14 07:45] LABS: ANION GAP 7 MMOL/L (8-16); BLOOD UREA NITROGEN 58 mg/dL (7-18); CALCIUM 8.2 mg/dL (8.5-10.1); CHLORIDE 97 mmol/L (98-107); CO2 31 mmol/L (21-32); CREATININE 1.7 mg/dL (0.55-1.3); GLUCOSE,RANDOM 206 mg/dL (74-106); POTASSIUM 4.9 mmol/L (3.5-5.1); SODIUM 135 mmol/L (136-145)
[2018-04-14] MEDS ORDERED: SODIUM CHLORIDE 1,000 ML IV SCH (08:30)
[2018-04-14] MEDS: ARFORMOTEROL TARTRATE 15 MCG/2 ML VIAL NEB SCH ×2 (08:45→20:35)
[2018-04-14] MEDS ORDERED: PT OWN MED DRAWER 7, Y5N ONE (09:07)
--- NOTE | 2018-04-14 09:22 | PN ---
Progress Note, Physician Chief Complaint: Pt sitting in bed in no acute distress. reports feeling better this am, still w / sob/cough. Denies any chest pain, nausea, vomiting, unilateral weakness. - Current Medication List Current Medications: Active Medications Acetaminophen (Tylenol -) 650 mg PO Q4H PRN PRN Reason: FEVER Albuterol Sulfate (Ventolin 0.083% Nebulizer Soln -) 1 amp NEB Q4H PRN PRN Reason: SHORT OF BREATH/WHEEZING Last Admin: 04/13/18 05:58 Dose: 1 amp Apixaban (Eliquis -) 5 mg PO BID [facility] Last Admin: 04/13/18 21:12 Dose: 5 mg Arformoterol Tartrate ([place] (Restricted To Pulmonology/Resp) -) 1 amp NEB RBID RYANN Last Admin: 04/13/18 20:54 Dose: 1 amp Atorvastatin Calcium (Lipitor -) 40 mg PO HS [facility] Last Admin: 04/13/18 21:12 Dose: 40 mg Levofloxacin (Levaquin 250 Mg Premixed Ivpb -) 250 mg in 50 mls @ 50 mls/hr IVPB DAILY [facility]; Protocol Last Admin: 04/13/18 09:42 Dose: 50 mls/hr Sodium Chloride (Normal Saline -) 1,000 mls @ 100 mls/hr IV ASDIR [facility] Insulin Aspart (Novolog Vial Sliding Scale -) 0 vial SQ ACHS RYANN; Protocol Last Admin: 04/14/18 06:29 Dose: 4 unit Insulin Detemir (Levemir Vial) 30 units SQ BID@0700,2200 RYANN Last Admin: 04/14/18 06:29 Dose: 30 units Lactobacillus Acidophilus (Bacid -) 1 tab PO DAILY RYANN Last Admin: 04/13/18 09:42 Dose: 1 tab Levothyroxine Sodium (Synthroid -) 25 mcg PO DAILY RYANN Last Admin: 04/14/18 06:33 Dose: 25 mcg Methylprednisolone Sodium Succinate (Solu-Medrol -) 40 mg IVPUSH Q6H-IV RYANN Last Admin: 04/14/18 03:55 Dose: 40 mg Metoprolol Succinate (Toprol Xl -) 25 mg PO DAILY [facility] Last Admin: 04/13/18 09:43 Dose: 25 mg Pantoprazole Sodium (Protonix -) 40 mg PO DAILY RYANN Last Admin: 04/13/18 09:42 Dose: 40 mg - Objective Vital Signs: Vital Signs Temperature 98.0 F 04/14/18 06:00 Pulse Rate 74 04/14/18 06:00 Respiratory Rate 20 04/14/18 06:00 Blood Pressure 133/61 04/14/18 06:00 O2 Sat by Pulse Oximetry (%) 97 04/13/18 20:33 Constitutional: Yes: Well Nourished, No Distress, Obese Cardiovascular: Yes: Regular Rate and Rhythm. No: Murmur Respiratory: Yes: Regular, Cough, On Nasal O2, Rhonchi, SOB, Wheezes. No: Accessory Muscle Use, Tachypnea Gastrointestinal: Yes: WNL, Normal Bowel Sounds, Soft, Abdomen, Obese. No: Distention, Tenderness Genitourinary: Yes: WNL Extremities: Yes: WNL Edema: Yes Edema: LLE: Trace, RLE: Trace Neurological: Yes: WNL, Alert, Oriented Psychiatric: Yes: WNL, Alert, Oriented Labs: CBC, BMP 04/14/18 05:15 04/14/18 05:15 INR, PTT INR 0.98 (0.83-1.09) 04/12/18 11:08 Assessment/Plan (1) Pneumonia Assessment/Plan: community acquired wbc wnl levaquin day 3 Code(s): J18.9 - PNEUMONIA, UNSPECIFIED ORGANISM Qualifiers: Pneumonia type: due to unspecified organism Laterality: right Lung location: middle lobe of lung Qualified Code(s): J18.1 - Lobar pneumonia, unspecified organism (2) Acute on chronic respiratory failure with hypoxemia Assessment/Plan: 2/2 copd exacerbation, pna O2 via nc medrol, bronchodilators abg w/ mild respiratory acidosis w/ hypercapnea pulm following Code(s): J96.21 - ACUTE AND CHRONIC RESPIRATORY FAILURE WITH HYPOXIA (3) COPD exacerbation Assessment/Plan: triggered by copd exacerb O2 dependent as above Code(s): J44.1 - CHRONIC OBSTRUCTIVE PULMONARY DISEASE W (ACUTE) EXACERBATION (4) JOLIE (acute kidney injury) Assessment/Plan: suspect prerenal hold lasix IVF monitor bmp Code(s): N17.9 - ACUTE KIDNEY FAILURE, UNSPECIFIED (5) Chest pain Assessment/Plan: suspect atypical, 2/2 pna improved trop peaked ekg without changes cardiology following Code(s): R07.9 - CHEST PAIN, UNSPECIFIED (6) CHF (congestive heart failure) Assessment/Plan: not in acute exacerbation lasix on hold due to jolie Code(s): I50.9 - HEART FAILURE, UNSPECIFIED Qualifiers: Heart failure type: combined systolic and diastolic Heart failure chronicity: chronic Qualified Code(s): I50.42 - Chronic combined systolic ( congestive) and diastolic (congestive) heart failure (7) Hypothyroid Assessment/Plan: stable continue synthroid Code(s): E03.9 - HYPOTHYROIDISM, UNSPECIFIED (8) CAD (coronary artery disease) Assessment/Plan: no acute ACS continue statin, ac Code(s): I25.10 - ATHSCL HEART DISEASE OF [place] CORONARY ARTERY W/O ANG PCTRS Qualifiers: Coronary Disease-Associated Artery/Lesion type: [place] artery [place] vs. 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: with mcfp use Diabetes mellitus complication status: with hyperglycemia Qualified Code(s): E11.65 - Type 2 diabetes mellitus with hyperglycemia; Z79.4 - director telemetry (current) use of insulin (10) Atrial fibrillation Assessment/Plan: chronic continue metoprolol, eliquis Code(s): I48.91 - UNSPECIFIED ATRIAL FIBRILLATION Qualifiers: Atrial fibrillation type: chronic Qualified Code(s): I48.2 - Chronic atrial fibrillation (11) Hyperlipidemia Assessment/Plan: stable continue statin Code(s): E78.5 - HYPERLIPIDEMIA, UNSPECIFIED Qualifiers: Hyperlipidemia type: pure hypercholesterolemia Qualified Code(s): E78.00 - Pure hypercholesterolemia, unspecified; E78.0 - Pure hypercholesterolemia (12) HTN (hypertension) Assessment/Plan: controlled continue home regimen Code(s): I10 - ESSENTIAL (PRIMARY) HYPERTENSION Qualifiers: Hypertension type: essential hypertension Qualified Code(s): I10 - Essential (primary) hypertension (13) Hyponatremia Assessment/Plan: improved suspect pseudo 2/2 hyperglycemia ivf monitor Code(s): E87.1 - HYPO-OSMOLALITY AND HYPONATREMIA (14) Hyperglycemia, drug-induced Assessment/Plan: 2/2 steroids improving plan as above Code(s): R73.9 - HYPERGLYCEMIA, UNSPECIFIED; T50.905A - ADVERSE EFFECT OF UNSP DRUG/MEDS/BIOL SUBST, INIT
[2018-04-14] MEDS: metoPROLOL SUCCINATE 25 MG TAB.SR.24H (FP) PO SCH (09:51)
[2018-04-14] MEDS: PANTOPRAZOLE 40 MG TABLET (FP) PO SCH (09:51)
[2018-04-14] MEDS: LACTOBACILLUS ACIDOPHILUS 1 TABLET PO SCH (09:51)
[2018-04-14] MEDS: APIXABAN 5 MG TABLET PO SCH ×2 (09:51→22:02)
--- NOTE | 2018-04-14 11:13 | PN ---
Progress Note (short form) - Note Progress Note: cc: cp no chest pain, palps, dizziness, lightheadedness Current Medications Acetaminophen (Tylenol -) 650 mg PO Q4H PRN PRN Reason: FEVER Albuterol Sulfate (Ventolin 0.083% Nebulizer Soln -) 1 amp NEB Q4H PRN PRN Reason: SHORT OF BREATH/WHEEZING Last Admin: 04/13/18 05:58 Dose: 1 amp Apixaban (Eliquis -) 5 mg PO BID [facility] Last Admin: 04/14/18 09:51 Dose: 5 mg Arformoterol Tartrate (Brovana (Restricted To Pulmonology/Resp) -) 1 amp NEB RBID [facility]ANN Last Admin: 04/14/18 08:45 Dose: 1 amp Atorvastatin Calcium (Lipitor -) 40 mg PO HS [facility]ANN Last Admin: 04/13/18 21:12 Dose: 40 mg Levofloxacin (Levaquin 250 Mg Premixed Ivpb -) 250 mg in 50 mls @ 50 mls/hr IVPB DAILY [facility]ANN; Protocol Last Admin: 04/14/18 09:52 Dose: 50 mls/hr Sodium Chloride (Normal Saline -) 1,000 mls @ 100 mls/hr IV ASDIR RYANN Stop: 04/14/18 20:29 Last Admin: 04/14/18 09:50 Dose: 100 mls/hr Insulin Aspart (Novolog Vial Sliding Scale -) 0 vial SQ ACHS [facility]YANN; Protocol Last Admin: 04/14/18 06:29 Dose: 4 unit Insulin Detemir (Levemir Vial) 30 units SQ BID@0700,2200 [facility] Last Admin: 04/14/18 06:29 Dose: 30 units Lactobacillus Acidophilus (Bacid -) 1 tab PO DAILY [facility] Last Admin: 04/14/18 09:51 Dose: 1 tab Levothyroxine Sodium (Synthroid -) 25 mcg PO DAILY [facility] Last Admin: 04/14/18 09:51 Dose: 25 mcg Methylprednisolone Sodium Succinate (Solu-Medrol -) 40 mg IVPUSH Q6H-IV [facility] Last Admin: 04/14/18 09:51 Dose: 40 mg Metoprolol Succinate (Toprol Xl -) 25 mg PO DAILY [facility] Last Admin: 04/14/18 09:51 Dose: 25 mg Pantoprazole Sodium (Protonix -) 40 mg PO DAILY [facility]ANN Last Admin: 04/14/18 09:51 Dose: 40 mg Vital Signs: Vital Signs Period Temp Pulse Resp BP Sys/Gardner Pulse Ox Last 24 Hr 97.9 F-98.8 F 72-82 2-20 133-154/59-67 97 Constitutional: Yes: Well Nourished, No Distress, Obese Eyes: No: Sclera Icterus HENT: No: Nasal Congestion Neck: No: Decreased ROM Respiratory: Yes: Regular, Wheezes (diffuse). No: Accessory Muscle Use, Rales Gastrointestinal: Yes: Normal Bowel Sounds. No: Distention, Hepatomegaly, Palpable Mass, Tenderness Cardiovascular: Yes: Regular Rate and Rhythm JVD: No Carotid Bruit: No PMI: Non-Displaced Heart Sounds: Yes: S1, S2. No: Gallop Murmur: No: Systolic Murmur, Diastolic Murmur Musculoskeletal: Yes: Other (No kyphosis) Extremities: No: Cold, Cyanosis Edema: No Peripheral Pulses: 2+ Left Carotid, 2+ Right Carotid, 2+ Left Doralis Pedis, 2+ Right Dorsalis Pedis Integumentary: No: Jaundice Neurological: Yes: Alert, Oriented (x3) Psychiatric: No: Agitated Assessment/Plan ECG #1 04/12: NSR, RBBB, ? old IWMI, ? old AWMI--no change vs 11/12 #2 04/12: no change 04/13: no change CTA chest 04/14: mild dilated PA suggestive of pulm HTN. RLL opacity, patchy opacities elsewhere. no pulm edema or effusion LHC/PCI 10/2013: mid LAD and Diag YURIY PCI, residual prox LCX 90-95% calcific and only 30-50% dist LM disease MPI 10/2017 (gillian): no STs. anteroseptal and inferolateral infarcts. no ischemia. EF 38%. Echo 04/2017: mild dec lvef, apical hk. nl rv. mod mr, mild-mod tr, mild as, rvsp 40-50 Echo 10/2013 : mildly reduced LVF, apical severe HK, anterior mod HK, mild to mod MR, mild to mod TR, RVSP 50-60 tele: NSR a/p: 82 yr old lady with known CAD/pci, chf, HTN, HPL, DM, pad, obesity, pafib (dx 05/2017 when admitted for copd) sent from pmd for low 02 sat a.e. copd, PNA: -per hospitalist chronic mixed diastolic/systolic CHF: -chronic, mild LV hypokinesis unchanged on recent echo 2017 -here with low o2 sat (85%) -bnp 4K, prior range 7K-18K. CT chest without congestion -here with presentation equivocal for acute chf 11/12 (in setting of copd exacerbation), treated with lasix 40 IV qd. - appears euvolemic today, defer diuretics CAD s/p PCI, atypical CP -pt s/p rota YURIY PCI of mid LAD and Diag 2013, residual prox LCX 90-95% calcific --medically managed -Has been stable, no anginal sxs. -atypical cp symptoms on prior admits, last 11/12 with enzymes neg, no acute isch ecg at that time -currently with non-exertional chest burning/squeezing sensation. trop 0.1-0.2- 0.1 is indeterminate range, flat trend, not c/w ACS -ECG's here unchanged vs prior, including repeat -recent nuclear stress test with no demonstrable ischemia (fixed defects, as above) -sx's may be due to ongoing airways restriction/copd exacerbation/PNA. -observe sx's, consider dobutamine stress echo if sx's continue -Cont home regimen: bb, statin, ac (no ASA per prior dr sorensen mgmt plan) JOLIE: -creat up above baseline, 1.4 here -per hospitalist HTN: -bp mostly controlled -same meds pafib: -in sinus here. cont home toprol -cont eliquis 5 bid for AC PAD: -known occluded R SFA on 2014 periph angiogram, with dz on L below knee -routine outpt f/u
--- NOTE | 2018-04-14 11:42 | PN ---
Progress Note, Physician History of Present Illness: pulmonary alert,still congested,+ cough yellow sputum - Current Medication List Current Medications: Active Medications Acetaminophen (Tylenol -) 650 mg PO Q4H PRN PRN Reason: FEVER Albuterol Sulfate (Ventolin 0.083% Nebulizer Soln -) 1 amp NEB Q4H PRN PRN Reason: SHORT OF BREATH/WHEEZING Last Admin: 04/13/18 05:58 Dose: 1 amp Apixaban (Eliquis -) 5 mg PO BID [facility] Last Admin: 04/14/18 09:51 Dose: 5 mg Arformoterol Tartrate (Brovana (Restricted To Pulmonology/Resp) -) 1 amp NEB RBID [facility] Last Admin: 04/14/18 08:45 Dose: 1 amp Atorvastatin Calcium (Lipitor -) 40 mg PO HS [facility] Last Admin: 04/13/18 21:12 Dose: 40 mg Levofloxacin (Levaquin 250 Mg Premixed Ivpb -) 250 mg in 50 mls @ 50 mls/hr IVPB DAILY [facility]ANN; Protocol Last Admin: 04/14/18 09:52 Dose: 50 mls/hr Sodium Chloride (Normal Saline -) 1,000 mls @ 100 mls/hr IV ASDIR RYANN Stop: 04/14/18 20:29 Last Admin: 04/14/18 09:50 Dose: 100 mls/hr Insulin Aspart (Novolog Vial Sliding Scale -) 0 vial SQ ACHS [facility]; Protocol Last Admin: 04/14/18 06:29 Dose: 4 unit Insulin Detemir (Levemir Vial) 30 units SQ BID@0700,2200 [facility] Last Admin: 04/14/18 06:29 Dose: 30 units Lactobacillus Acidophilus (Bacid -) 1 tab PO DAILY [facility] Last Admin: 04/14/18 09:51 Dose: 1 tab Levothyroxine Sodium (Synthroid -) 25 mcg PO DAILY [facility] Last Admin: 04/14/18 09:51 Dose: 25 mcg Methylprednisolone Sodium Succinate (Solu-Medrol -) 40 mg IVPUSH Q6H-IV [facility] Last Admin: 04/14/18 09:51 Dose: 40 mg Metoprolol Succinate (Toprol Xl -) 25 mg PO DAILY [facility] Last Admin: 04/14/18 09:51 Dose: 25 mg Pantoprazole Sodium (Protonix -) 40 mg PO DAILY [facility]ANN Last Admin: 04/14/18 09:51 Dose: 40 mg - Objective Vital Signs: Vital Signs Temperature 98.0 F 04/14/18 06:00 Pulse Rate 74 04/14/18 06:00 Respiratory Rate 20 04/14/18 06:00 Blood Pressure 133/61 04/14/18 06:00 O2 Sat by Pulse Oximetry (%) 97 04/13/18 20:33 Constitutional: Yes: Well Nourished, Calm Eyes: Yes: WNL HENT: Yes: WNL Neck: Yes: WNL Cardiovascular: Yes: Pulse Irregular, S1, S2 Respiratory: Yes: Rhonchi (diffuse bilateral wheezes and rhonchi), Wheezes Gastrointestinal: Yes: Normal Bowel Sounds, Soft Extremities: Yes: WNL Edema: No Labs: CBC, BMP 04/14/18 05:15 04/14/18 05:15 INR, PTT INR 0.98 (0.83-1.09) 04/12/18 11:08 Laboratory Tests 04/13/18 13:35 ABG pH 7.33 L ABG pCO2 at Pt Temp 59.0 H ABG pO2 at Pt Temp 108.0 H D ABG HCO3 29.9 H ABG O2 Sat (Measured) 97.7 Problem List - Problems (1) CHF (congestive heart failure) Code(s): I50.9 - HEART FAILURE, UNSPECIFIED Qualifiers: Heart failure type: combined systolic and diastolic Heart failure chronicity: chronic Qualified Code(s): I50.42 - Chronic combined systolic ( congestive) and diastolic (congestive) heart failure (2) COPD exacerbation Code(s): J44.1 - CHRONIC OBSTRUCTIVE PULMONARY DISEASE W (ACUTE) EXACERBATION (3) Hypothyroid Code(s): E03.9 - HYPOTHYROIDISM, UNSPECIFIED (4) Pneumonia Code(s): J18.9 - PNEUMONIA, UNSPECIFIED ORGANISM Qualifiers: Pneumonia type: due to unspecified organism Laterality: right Lung location: middle lobe of lung Qualified Code(s): J18.1 - Lobar pneumonia, unspecified organism (5) Acute on chronic respiratory failure with hypoxia and hypercapnia Code(s): J96.21 - ACUTE AND CHRONIC RESPIRATORY FAILURE WITH HYPOXIA; J96.22 - ACUTE AND CHRONIC RESPIRATORY FAILURE WITH HYPERCAPNIA (6) Atrial fibrillation Code(s): I48.91 - UNSPECIFIED ATRIAL FIBRILLATION Qualifiers: Atrial fibrillation type: paroxysmal Qualified Code(s): I48.0 - Paroxysmal atrial fibrillation (7) CAD (coronary artery disease) Code(s): I25.10 - ATHSCL HEART DISEASE OF [place] CORONARY ARTERY W/O ANG PCTRS Qualifiers: Coronary Disease-Associated Artery/Lesion type: [place] artery [place] vs. transplanted heart: [place] heart Associated angina: without angina Qualified Code(s): I25.10 - Atherosclerotic heart disease of [place] coronary artery without angina pectoris (8) HTN (hypertension) Code(s): I10 - ESSENTIAL (PRIMARY) HYPERTENSION Qualifiers: Hypertension type: essential hypertension Qualified Code(s): I10 - Essential (primary) hypertension (9) Hyperglycemia due to type 2 diabetes mellitus Code(s): E11.65 - TYPE 2 DIABETES MELLITUS WITH HYPERGLYCEMIA (10) Obesity (BMI 30-39.9) Code(s): E66.9 - OBESITY, UNSPECIFIED Assessment/Plan IMP ACUTE ON CHRONIC HYPOXEMIC/HYPERCAPNEIC RESPIRATORY FAILURE ASTHMA/COPD EXACERBATION PNEUMONIA CHF JOLIE + TROPONIN ASHD S/P STENTS DM HTM HYPOTHYROID PLAN IV STEROIDS INHALED BRONCHODILATORS SUPPLEMENTAL O2 NIPPV IF PT DEVELOPES INCREASED RESPIRATORY DISTRESS TREND TROPONINS MONITOR LYTES,RENAL FUNCTION PFTS OUTPATIENT DR CAAL Problem List - Problems (1) CHF (congestive heart failure) Code(s): I50.9 - HEART FAILURE, UNSPECIFIED Qualifiers: Heart failure type: combined systolic and diastolic Heart failure chronicity: chronic Qualified Code(s): I50.42 - Chronic combined systolic ( congestive) and diastolic (congestive) heart failure (2) COPD exacerbation Code(s): J44.1 - CHRONIC OBSTRUCTIVE PULMONARY DISEASE W (ACUTE) EXACERBATION (3) Hypothyroid Code(s): E03.9 - HYPOTHYROIDISM, UNSPECIFIED (4) Pneumonia Code(s): J18.9 - PNEUMONIA, UNSPECIFIED ORGANISM Qualifiers: Pneumonia type: due to unspecified organism Laterality: right Lung location: middle lobe of lung Qualified Code(s): J18.1 - Lobar pneumonia, unspecified organism (5) Acute on chronic respiratory failure with hypoxia and hypercapnia Code(s): J96.21 - ACUTE AND CHRONIC RESPIRATORY FAILURE WITH HYPOXIA; J96.22 - ACUTE AND CHRONIC RESPIRATORY FAILURE WITH HYPERCAPNIA (6) Atrial fibrillation Code(s): I48.91 - UNSPECIFIED ATRIAL FIBRILLATION Qualifiers: Atrial fibrillation type: paroxysmal Qualified Code(s): I48.0 - Paroxysmal atrial fibrillation (7) CAD (coronary artery disease) Code(s): I25.10 - ATHSCL HEART DISEASE OF [place] CORONARY ARTERY W/O ANG PCTRS Qualifiers: Coronary Disease-Associated Artery/Lesion type: [place] artery [place] vs. transplanted heart: [place] heart Associated angina: without angina Qualified Code(s): I25.10 - Atherosclerotic heart disease of [place] coronary artery without angina pectoris (8) HTN (hypertension) Code(s): I10 - ESSENTIAL (PRIMARY) HYPERTENSION Qualifiers: Hypertension type: essential hypertension Qualified Code(s): I10 - Essential (primary) hypertension (9) Hyperglycemia due to type 2 diabetes mellitus Code(s): E11.65 - TYPE 2 DIABETES MELLITUS WITH HYPERGLYCEMIA (10) Obesity (BMI 30-39.9) Code(s): E66.9 - OBESITY, UNSPECIFIED
--- NOTE | 2018-04-14 11:51 | CONS ---
DATE OF CONSULTATION: 04/13/2018 REFERRING PHYSICIAN: . HISTORY OF PRESENT ILLNESS: The patient is an 83-year-old female with a past medical history of chronic asthma, atrial fibrillation, ASHD, congestive heart failure, hypertension, status post AL, GERD, hiatal hernia, hypothyroidism, nonsmoker, admitted to [facility] with a complaint of increasing shortness of breath, and cough productive of yellow sputum. The patient apparently, according to the patients daughter, has been feeling more short of breath over the past few days which increased in severity. She had a cough associated with wheezing. She has not had any fevers or chills. Apparently, the patient is on home oxygen, 2 L, and normally saturates in the high 90s, but on the day of admission it was the low 90s and high 80s. The patient apparently recently returned from [place] 2 weeks ago. She denies any history of respiratory failure or past ventilatory support. There is no history of DVT or PE in the past. On admission, she also complained of some left-sided chest pain associated with the cough. She denies any hemoptysis, denies any lower extremity edema. PAST MEDICAL HISTORY: Again includes COPD, asthma on O2, congestive heart failure, ASHD, status post stents, status post AL, hypertension, hyperlipidemia. REVIEW OF SYSTEMS: Positive shortness of breath, positive cough, positive wheezing. No fevers, no chills, no hemoptysis. CURRENT MEDICATIONS: Include Solu-Medrol, Tylenol, Levaquin, Eliquis, ____ albuterol, DuoNeb, Toprol, Lipitor, NovoLog, Levemir, and Protonix. PHYSICAL EXAMINATION: General: The patient is an elderly female, awake and alert and currently in no acute distress. Vital Signs: She is afebrile. Blood pressure 121/54, respiratory rate is 23, O2 saturation is 97. HEENT: Normocephalic, atraumatic. Heart: Regular S1, S2. Chest: Diffuse bilateral wheezes. Abdomen: Soft, bowel sounds positive. Extremities: No cyanosis or edema. LABORATORY DATA: WBC is 7.9, hemoglobin 10.8, hematocrit 35.5 with a platelet count of 209,000. INR is 0.98. Venous blood gas is 7.33, PCO2 of 66, a PO2 of 54, bicarbonate of 34. Electrolytes: BUN 38, creatinine 1.4, glucose 410, BNP is 4000. Chest CTA reveals no evidence of pulmonary embolism. There is a right bibasilar infiltrate medially. There is interval development of small patchy opacities in the right pulmonary apex, right middle lobe and right basilar dissection. This is with small infiltrates. IMPRESSION: [id number] hypoxemic/hypercapnic respiratory failure secondary to: 1. Likely pneumonia. 2. Chronic obstructive pulmonary disease - asthma exacerbation. 3. Congestive heart failure. 4. Arteriosclerotic heart disease, status post stents, status post myocardial infarction. 5. Acute kidney injury. PLAN: Supplemental oxygen, antibiotic therapy, check arterial blood gas, obtain cultures, echocardiogram, inhaled bronchodilators, a short course of steroids, pulmonary function test as outpatient and also follow up with a chest CT in 6 to 8 weeks to document resolution of infiltrates. HEIKE CAAL M.D. [id number]
[2018-04-14] MEDS: TIOTROPIUM BROMIDE 2.5 MCG (SPIRIVA) RESPIMAT INHALER IH SCH (12:53)
[2018-04-14] MEDS: DOCUSATE SODIUM 100 MG CAPSULE (FP) PO SCH ×2 (16:15→22:02)
[2018-04-14] MEDS: ALBUTEROL SO4 0.083% IH SOL 2.5 MG/3 ML VIAL.NEB. NEB PRN (17:43)
[2018-04-14] MEDS ORDERED: INSULIN (NOVOLOG) ASPART 100 UNITS/ML 10ML VIAL ONE (21:44)
[2018-04-14] MEDS: ATORVASTATIN CA 40 MG TABLET (FP) PO SCH (22:02)
[2018-04-14] MEDS: POLYETHYLENE GLYCOL 3350 119 GM BTL PO SCH ×2 (22:03→22:13)
[2018-04-15] MEDS: methylPREDNISolone NA SUCC 40 MG/1 ML VIAL IVPUSH SCH ×3 (03:54→17:39)
[2018-04-15 06:51] LABS: BASO % 0.1 % (0-2.0); HEMATOCRIT 34.6 % (32.4-45.2); HEMOGLOBIN 10.3 GM/dL (10.7-15.3); LYMPH % 5.9 % (8-40); MCHC 29.9 g/dl (32.0-36.0); MEAN CELL VOLUME 66.6 fl (80-96); MEAN PLT VOLUME 8.5 fl (7.5-11.1); MONO % 2.6 % (3.8-10.2); NEUT % 91.4 % (42.8-82.8); PLATELET COUNT 229 K/MM3 (134-434); RBC 5.19 M/mm3 (3.60-5.2); RDW 15.7 % (11.6-15.6); WHITE BLOOD COUNT 7.8 K/mm3 (4.0-10.0)
[2018-04-15] MEDS: INSULIN (LEVEMIR) 100 UNITS/ML UNITS SQ SCH ×2 (06:51→21:31)
[2018-04-15] MEDS: DOCUSATE SODIUM 100 MG CAPSULE (FP) PO SCH ×3 (06:51→21:29)
[2018-04-15] MEDS: INSULIN SLIDING SCALE (NOVOLOG) 1 VIAL SQ SCH ×4 (06:52→21:32)
[2018-04-15 07:45] LABS: ANION GAP 8 MMOL/L (8-16); BLOOD UREA NITROGEN 66 mg/dL (7-18); CALCIUM 8.2 mg/dL (8.5-10.1); CHLORIDE 95 mmol/L (98-107); CO2 30 mmol/L (21-32); CREATININE 1.8 mg/dL (0.55-1.3); MAGNESIUM 2.6 mg/dL (1.8-2.4); POTASSIUM 5.2 mmol/L (3.5-5.1); SODIUM 133 mmol/L (136-145)
[2018-04-15 07:50] LABS: GLUCOSE,RANDOM 359 mg/dL (74-106)
[2018-04-15 08:06] LABS: MCH 19.9 pg (25.7-33.7)
[2018-04-15] MEDS: LEVOTHYROXINE NA 25 MCG TABLET (FP) PO SCH (08:10)
[2018-04-15] MEDS: ARFORMOTEROL TARTRATE 15 MCG/2 ML VIAL NEB SCH ×2 (08:35→21:00)
[2018-04-15] MEDS ORDERED: INSULIN (LEVEMIR) 100 UNITS/ML UNITS SQ ONE (09:04)
[2018-04-15] MEDS: LACTOBACILLUS ACIDOPHILUS 1 TABLET PO SCH (09:09)
[2018-04-15] MEDS: APIXABAN 5 MG TABLET PO SCH ×2 (09:09→21:29)
[2018-04-15] MEDS: PANTOPRAZOLE 40 MG TABLET (FP) PO SCH (09:10)
[2018-04-15] MEDS: metoPROLOL SUCCINATE 25 MG TAB.SR.24H (FP) PO SCH (09:10)
[2018-04-15] MEDS: TIOTROPIUM BROMIDE 2.5 MCG (SPIRIVA) RESPIMAT INHALER IH SCH (09:11)
[2018-04-15] MEDS: POLYETHYLENE GLYCOL 3350 119 GM BTL PO SCH ×2 (09:29→21:35)
--- NOTE | 2018-04-15 10:20 | PN ---
Progress Note, Physician Chief Complaint: Pt sitting in bed in no acute distress. reports feeling better this am, still w / sob/cough. Denies any chest pain, nausea, vomiting, unilateral weakness. - Current Medication List Current Medications: Active Medications Acetaminophen (Tylenol -) 650 mg PO Q4H PRN PRN Reason: FEVER Albuterol Sulfate (Ventolin 0.083% Nebulizer Soln -) 1 amp NEB Q4H PRN PRN Reason: SHORT OF BREATH/WHEEZING Last Admin: 04/14/18 17:43 Dose: 1 amp Apixaban (Eliquis -) 5 mg PO BID [facility] Last Admin: 04/15/18 09:09 Dose: 5 mg Arformoterol Tartrate (Brovana (Restricted To Pulmonology/Resp) -) 1 amp NEB RBID [facility] Last Admin: 04/15/18 08:35 Dose: 1 amp Atorvastatin Calcium (Lipitor -) 40 mg PO HS [facility] Last Admin: 04/14/18 22:02 Dose: 40 mg Docusate Sodium (Colace -) 100 mg PO TID [facility] Last Admin: 04/15/18 06:51 Dose: 100 mg Levofloxacin (Levaquin 250 Mg Premixed Ivpb -) 250 mg in 50 mls @ 50 mls/hr IVPB DAILY [facility]; Protocol Last Admin: 04/15/18 09:18 Dose: 50 mls/hr Insulin Aspart (Novolog Vial Sliding Scale -) 0 vial SQ ACHS [facility]; Protocol Last Admin: 04/15/18 06:52 Dose: 12 units Insulin Detemir (Levemir Vial) 30 units SQ BID@0700,2200 [facility] Last Admin: 04/15/18 06:51 Dose: 30 units Lactobacillus Acidophilus (Bacid -) 1 tab PO DAILY [facility] Last Admin: 04/15/18 09:09 Dose: 1 tab Levothyroxine Sodium (Synthroid -) 25 mcg PO DAILY R[facility]ANN Methylprednisolone Sodium Succinate (Solu-Medrol -) 40 mg IVPUSH Q6H-IV [facility] Last Admin: 04/15/18 09:08 Dose: 40 mg Metoprolol Succinate (Toprol Xl -) 25 mg PO DAILY [facility] Last Admin: 04/15/18 09:10 Dose: 25 mg Pantoprazole Sodium (Protonix -) 40 mg PO DAILY [facility] Last Admin: 04/15/18 09:10 Dose: 40 mg Polyethylene Glycol (Miralax (For Daily Use) -) 17 gm PO BID [facility] Last Admin: 04/15/18 09:29 Dose: Not Given Tiotropium Superior (Spiriva Respimat) 2 puff IH DAILY [facility] Last Admin: 04/15/18 09:11 Dose: 2 puff - Objective Vital Signs: Vital Signs Temperature 98.2 F 04/15/18 08:52 Pulse Rate 75 04/15/18 08:52 Respiratory Rate 18 04/15/18 08:52 Blood Pressure 126/58 L 04/15/18 08:52 O2 Sat by Pulse Oximetry (%) 97 04/14/18 21:00 Constitutional: Yes: Well Nourished, No Distress, Calm Cardiovascular: Yes: Regular Rate and Rhythm. No: Murmur Respiratory: Yes: Regular, Cough, Diminished, Rhonchi, SOB, Wheezes. No: Accessory Muscle Use, Tachypnea Gastrointestinal: Yes: WNL, Normal Bowel Sounds, Soft, Abdomen, Obese. No: Distention, Tenderness Genitourinary: Yes: WNL Extremities: Yes: WNL Edema: Yes Edema: LLE: Trace, RLE: Trace Neurological: Yes: WNL, Alert, Oriented Psychiatric: Yes: WNL, Alert, Oriented Labs: CBC, BMP 04/15/18 05:30 04/15/18 05:30 INR, PTT INR 0.98 (0.83-1.09) 04/12/18 11:08 Assessment/Plan (1) Pneumonia Assessment/Plan: community acquired wbc wnl levaquin day 4 Code(s): J18.9 - PNEUMONIA, UNSPECIFIED ORGANISM Qualifiers: Pneumonia type: due to unspecified organism Laterality: right Lung location: middle lobe of lung Qualified Code(s): J18.1 - Lobar pneumonia, unspecified organism (2) Acute on chronic respiratory failure with hypoxemia Assessment/Plan: improving 2/2 copd exacerbation, pna O2 via nc medrol taper, bronchodilators pulm following Code(s): J96.21 - ACUTE AND CHRONIC RESPIRATORY FAILURE WITH HYPOXIA (3) COPD exacerbation Assessment/Plan: O2 dependent as above Code(s): J44.1 - CHRONIC OBSTRUCTIVE PULMONARY DISEASE W (ACUTE) EXACERBATION (4) JOLIE (acute kidney injury) Assessment/Plan: persists w/ hyperkalemia hold lasix IVF nephrology consulted Code(s): N17.9 - ACUTE KIDNEY FAILURE, UNSPECIFIED (5) Chest pain Assessment/Plan: acs ruled out Code(s): R07.9 - CHEST PAIN, UNSPECIFIED (6) CHF (congestive heart failure) Assessment/Plan: not in acute exacerbation lasix on hold due to jolie Code(s): I50.9 - HEART FAILURE, UNSPECIFIED Qualifiers: Heart failure type: combined systolic and diastolic Heart failure chronicity: chronic Qualified Code(s): I50.42 - Chronic combined systolic ( congestive) and diastolic (congestive) heart failure (7) Hypothyroid Assessment/Plan: stable continue synthroid Code(s): E03.9 - HYPOTHYROIDISM, UNSPECIFIED (8) CAD (coronary artery disease) Assessment/Plan: no acute ACS continue statin, ac Code(s): I25.10 - ATHSCL HEART DISEASE OF [place] CORONARY ARTERY W/O ANG PCTRS Qualifiers: Coronary Disease-Associated Artery/Lesion type: [place] artery [place] vs. transplanted heart: [place] heart Associated angina: without angina Qualified Code(s): I25.10 - Atherosclerotic heart disease of [place] coronary artery without angina pectoris (9) Diabetes Assessment/Plan: hyperglycemia improving bgm, levemir insulin sliding scale monitor Code(s): E11.9 - TYPE 2 DIABETES MELLITUS WITHOUT COMPLICATIONS Qualifiers: Diabetes mellitus type: type 2 Diabetes mellitus terminal supervisor insulin use: with senior living use Diabetes mellitus complication status: with hyperglycemia Qualified Code(s): E11.65 - Type 2 diabetes mellitus with hyperglycemia; Z79.4 - termite control service representative (current) use of insulin (10) Atrial fibrillation Assessment/Plan: chronic continue metoprolol, eliquis Code(s): I48.91 - UNSPECIFIED ATRIAL FIBRILLATION Qualifiers: Atrial fibrillation type: chronic Qualified Code(s): I48.2 - Chronic atrial fibrillation (11) Hyperlipidemia Assessment/Plan: stable continue statin Code(s): E78.5 - HYPERLIPIDEMIA, UNSPECIFIED Qualifiers: Hyperlipidemia type: pure hypercholesterolemia Qualified Code(s): E78.00 - Pure hypercholesterolemia, unspecified; E78.0 - Pure hypercholesterolemia (12) HTN (hypertension) Assessment/Plan: controlled continue home regimen Code(s): I10 - ESSENTIAL (PRIMARY) HYPERTENSION Qualifiers: Hypertension type: essential hypertension Qualified Code(s): I10 - Essential (primary) hypertension (13) Hyponatremia Assessment/Plan: suspect pseudo 2/2 hyperglycemia ivf monitor Code(s): E87.1 - HYPO-OSMOLALITY AND HYPONATREMIA (14) Hyperglycemia, drug-induced Assessment/Plan: 2/2 steroids improving plan as above Code(s): R73.9 - HYPERGLYCEMIA, UNSPECIFIED; T50.905A - ADVERSE EFFECT OF UNSP DRUG/MEDS/BIOL SUBST, INIT (15) Hyperkalemia Assessment/Plan: mild IVF monitor bmp Code(s): E87.5 - HYPERKALEMIA
--- NOTE | 2018-04-15 11:00 | PN ---
Progress Note, Physician History of Present Illness: pulmonary alert,less congested , + cough - Current Medication List Current Medications: Active Medications Acetaminophen (Tylenol -) 650 mg PO Q4H PRN PRN Reason: FEVER Albuterol Sulfate (Ventolin 0.083% Nebulizer Soln -) 1 amp NEB Q4H PRN PRN Reason: SHORT OF BREATH/WHEEZING Last Admin: 04/14/18 17:43 Dose: 1 amp Apixaban (Eliquis -) 5 mg PO BID [facility] Last Admin: 04/15/18 09:09 Dose: 5 mg Arformoterol Tartrate (Brovana (Restricted To Pulmonology/Resp) -) 1 amp NEB RBID [facility] Last Admin: 04/15/18 08:35 Dose: 1 amp Atorvastatin Calcium (Lipitor -) 40 mg PO HS [facility] Last Admin: 04/14/18 22:02 Dose: 40 mg Docusate Sodium (Colace -) 100 mg PO TID [facility] Last Admin: 04/15/18 06:51 Dose: 100 mg Levofloxacin (Levaquin 250 Mg Premixed Ivpb -) 250 mg in 50 mls @ 50 mls/hr IVPB DAILY [facility]; Protocol Last Admin: 04/15/18 09:18 Dose: 50 mls/hr Insulin Aspart (Novolog Vial Sliding Scale -) 0 vial SQ ACHS [facility]; Protocol Last Admin: 04/15/18 06:52 Dose: 12 units Insulin Detemir (Levemir Vial) 30 units SQ BID@0700,2200 [facility] Last Admin: 04/15/18 06:51 Dose: 30 units Lactobacillus Acidophilus (Bacid -) 1 tab PO DAILY [facility] Last Admin: 04/15/18 09:09 Dose: 1 tab Levothyroxine Sodium (Synthroid -) 25 mcg PO AM [facility] Methylprednisolone Sodium Succinate (Solu-Medrol -) 40 mg IVPUSH Q6H-IV [facility] Last Admin: 04/15/18 09:08 Dose: 40 mg Metoprolol Succinate (Toprol Xl -) 25 mg PO DAILY [facility] Last Admin: 04/15/18 09:10 Dose: 25 mg Pantoprazole Sodium (Protonix -) 40 mg PO DAILY [facility] Last Admin: 04/15/18 09:10 Dose: 40 mg Polyethylene Glycol (Miralax (For Daily Use) -) 17 gm PO BID [facility] Last Admin: 04/15/18 09:29 Dose: Not Given Tiotropium [place] (Spiriva Respimat) 2 puff IH DAILY [facility] Last Admin: 04/15/18 09:11 Dose: 2 puff - Objective Vital Signs: Vital Signs Temperature 98.2 F 04/15/18 08:52 Pulse Rate 75 04/15/18 08:52 Respiratory Rate 18 04/15/18 08:52 Blood Pressure 126/58 L 04/15/18 08:52 O2 Sat by Pulse Oximetry (%) 97 04/14/18 21:00 Constitutional: Yes: Well Nourished, Calm Eyes: Yes: WNL HENT: Yes: WNL Neck: Yes: WNL Cardiovascular: Yes: Regular Rate and Rhythm, S1, S2 Respiratory: Yes: Wheezes (scattered rubi wheezzes and rhonchi) Gastrointestinal: Yes: Normal Bowel Sounds, Soft Extremities: Yes: WNL Edema: No Labs: CBC, BMP 04/15/18 05:30 04/15/18 05:30 INR, PTT INR 0.98 (0.83-1.09) 04/12/18 11:08 Problem List - Problems (1) CHF (congestive heart failure) Code(s): I50.9 - HEART FAILURE, UNSPECIFIED Qualifiers: Heart failure type: combined systolic and diastolic Heart failure chronicity: chronic Qualified Code(s): I50.42 - Chronic combined systolic ( congestive) and diastolic (congestive) heart failure (2) COPD exacerbation Code(s): J44.1 - CHRONIC OBSTRUCTIVE PULMONARY DISEASE W (ACUTE) EXACERBATION (3) Hypothyroid Code(s): E03.9 - HYPOTHYROIDISM, UNSPECIFIED (4) Pneumonia Code(s): J18.9 - PNEUMONIA, UNSPECIFIED ORGANISM Qualifiers: Pneumonia type: due to unspecified organism Laterality: right Lung location: middle lobe of lung Qualified Code(s): J18.1 - Lobar pneumonia, unspecified organism (5) Acute on chronic respiratory failure with hypoxia and hypercapnia Code(s): J96.21 - ACUTE AND CHRONIC RESPIRATORY FAILURE WITH HYPOXIA; J96.22 - ACUTE AND CHRONIC RESPIRATORY FAILURE WITH HYPERCAPNIA (6) Atrial fibrillation Code(s): I48.91 - UNSPECIFIED ATRIAL FIBRILLATION Qualifiers: Atrial fibrillation type: paroxysmal Qualified Code(s): I48.0 - Paroxysmal atrial fibrillation (7) CAD (coronary artery disease) Code(s): I25.10 - ATHSCL HEART DISEASE OF [place] CORONARY ARTERY W/O ANG PCTRS Qualifiers: Coronary Disease-Associated Artery/Lesion type: [place] artery [place] vs. transplanted heart: [place] heart Associated angina: without angina Qualified Code(s): I25.10 - Atherosclerotic heart disease of [place] coronary artery without angina pectoris (8) HTN (hypertension) Code(s): I10 - ESSENTIAL (PRIMARY) HYPERTENSION Qualifiers: Hypertension type: essential hypertension Qualified Code(s): I10 - Essential (primary) hypertension (9) Hyperglycemia due to type 2 diabetes mellitus Code(s): E11.65 - TYPE 2 DIABETES MELLITUS WITH HYPERGLYCEMIA (10) Obesity (BMI 30-39.9) Code(s): E66.9 - OBESITY, UNSPECIFIED Assessment/Plan IMP ACUTE ON CHRONIC HYPOXEMIC/HYPERCAPNEIC RESPIRATORY FAILURE ASTHMA/COPD EXACERBATION CLINICALLY IMPROVING PNEUMONIA CHF JOLIE + TROPONIN ASHD S/P STENTS DM HTM HYPOTHYROID PLAN TAPER STEROIDS INHALED BRONCHODILATORS SUPPLEMENTAL O2 NIPPV IF PT DEVELOPES INCREASED RESPIRATORY DISTRESS TREND TROPONINS MONITOR LYTES,RENAL FUNCTION PFTS OUTPATIENT DR CAAL Problem List - Problems (1) CHF (congestive heart failure) Code(s): I50.9 - HEART FAILURE, UNSPECIFIED Qualifiers: Heart failure type: combined systolic and diastolic Heart failure chronicity: chronic Qualified Code(s): I50.42 - Chronic combined systolic ( congestive) and diastolic (congestive) heart failure (2) COPD exacerbation Code(s): J44.1 - CHRONIC OBSTRUCTIVE PULMONARY DISEASE W (ACUTE) EXACERBATION (3) Hypothyroid Code(s): E03.9 - HYPOTHYROIDISM, UNSPECIFIED (4) Pneumonia Code(s): J18.9 - PNEUMONIA, UNSPECIFIED ORGANISM Qualifiers: Pneumonia type: due to unspecified organism Laterality: right Lung location: middle lobe of lung Qualified Code(s): J18.1 - Lobar pneumonia, unspecified organism (5) Acute on chronic respiratory failure with hypoxia and hypercapnia Code(s): J96.21 - ACUTE AND CHRONIC RESPIRATORY FAILURE WITH HYPOXIA; J96.22 - ACUTE AND CHRONIC RESPIRATORY FAILURE WITH HYPERCAPNIA (6) Atrial fibrillation Code(s): I48.91 - UNSPECIFIED ATRIAL FIBRILLATION Qualifiers: Atrial fibrillation type: paroxysmal Qualified Code(s): I48.0 - Paroxysmal atrial fibrillation (7) CAD (coronary artery disease) Code(s): I25.10 - ATHSCL HEART DISEASE OF [place] CORONARY ARTERY W/O ANG PCTRS Qualifiers: Coronary Disease-Associated Artery/Lesion type: [place] artery [place] vs. transplanted heart: [place] heart Associated angina: without angina Qualified Code(s): I25.10 - Atherosclerotic heart disease of [place] coronary artery without angina pectoris (8) HTN (hypertension) Code(s): I10 - ESSENTIAL (PRIMARY) HYPERTENSION Qualifiers: Hypertension type: essential hypertension Qualified Code(s): I10 - Essential (primary) hypertension (9) Hyperglycemia due to type 2 diabetes mellitus Code(s): E11.65 - TYPE 2 DIABETES MELLITUS WITH HYPERGLYCEMIA (10) Obesity (BMI 30-39.9) Code(s): E66.9 - OBESITY, UNSPECIFIED
--- NOTE | 2018-04-15 11:37 | PN ---
Progress Note (short form) - Note Progress Note: cc: cp gets chest pain when coughing hard. no palps, dizziness, lightheadedness, dyspnea Current Medications Acetaminophen (Tylenol -) 650 mg PO Q4H PRN PRN Reason: FEVER Albuterol Sulfate (Ventolin 0.083% Nebulizer Soln -) 1 amp NEB Q4H PRN PRN Reason: SHORT OF BREATH/WHEEZING Last Admin: 04/14/18 17:43 Dose: 1 amp Apixaban (Eliquis -) 5 mg PO BID [facility] Last Admin: 04/15/18 09:09 Dose: 5 mg Arformoterol Tartrate (Brovana (Restricted To Pulmonology/Resp) -) 1 amp NEB RBID [facility] Last Admin: 04/15/18 08:35 Dose: 1 amp Atorvastatin Calcium (Lipitor -) 40 mg PO HS [facility] Last Admin: 04/14/18 22:02 Dose: 40 mg Docusate Sodium (Colace -) 100 mg PO TID [facility] Last Admin: 04/15/18 06:51 Dose: 100 mg Levofloxacin (Levaquin 250 Mg Premixed Ivpb -) 250 mg in 50 mls @ 50 mls/hr IVPB DAILY [facility]; Protocol Last Admin: 04/15/18 09:18 Dose: 50 mls/hr Sodium Chloride (Normal Saline -) 1,000 mls @ 75 mls/hr IV ASDIR [facility] Insulin Aspart (Novolog Vial Sliding Scale -) 0 vial SQ ACHS [facility]; Protocol Last Admin: 04/15/18 06:52 Dose: 12 units Insulin Detemir (Levemir Vial) 30 units SQ BID@0700,2200 [facility] Last Admin: 04/15/18 06:51 Dose: 30 units Lactobacillus Acidophilus (Bacid -) 1 tab PO DAILY [facility] Last Admin: 04/15/18 09:09 Dose: 1 tab Levothyroxine Sodium (Synthroid -) 25 mcg PO AM [facility] Methylprednisolone Sodium Succinate (Solu-Medrol -) 40 mg IVPUSH Q8H-IV [facility] Metoprolol Succinate (Toprol Xl -) 25 mg PO DAILY [facility] Last Admin: 04/15/18 09:10 Dose: 25 mg Pantoprazole Sodium (Protonix -) 40 mg PO DAILY [facility] Last Admin: 04/15/18 09:10 Dose: 40 mg Polyethylene Glycol (Miralax (For Daily Use) -) 17 gm PO BID [facility] Last Admin: 04/15/18 09:29 Dose: Not Given Tiotropium [place] (Spiriva Respimat) 2 puff IH DAILY [facility] Last Admin: 04/15/18 09:11 Dose: 2 puff Vital Signs: Vital Signs Period Temp Pulse Resp BP Sys/Gardner Pulse Ox Last 24 Hr 97.5 F-98.8 F 69-79 18-20 105-155/43-62 97 Constitutional: Yes: Well Nourished, No Distress, Obese Eyes: No: Sclera Icterus HENT: No: Nasal Congestion Neck: No: Decreased ROM Respiratory: Yes: Regular, Wheezes (diffuse). No: Accessory Muscle Use, Rales Gastrointestinal: Yes: Normal Bowel Sounds. No: Distention, Hepatomegaly, Palpable Mass, Tenderness Cardiovascular: Yes: Regular Rate and Rhythm JVD: No Carotid Bruit: No PMI: Non-Displaced Heart Sounds: Yes: S1, S2. No: Gallop Murmur: No: Systolic Murmur, Diastolic Murmur Musculoskeletal: Yes: Other (No kyphosis) Extremities: No: Cold, Cyanosis Edema: No Peripheral Pulses: 2+ Left Carotid, 2+ Right Carotid, 2+ Left Doralis Pedis, 2+ Right Dorsalis Pedis Integumentary: No: Jaundice Neurological: Yes: Alert, Oriented (x3) Psychiatric: No: Agitated Assessment/Plan ECG #1 04/12: NSR, RBBB, ? old IWMI, ? old AWMI--no change vs 11/12 #2 04/12: no change 04/13: no change CTA chest 04/14: mild dilated PA suggestive of pulm HTN. RLL opacity, patchy opacities elsewhere. no pulm edema or effusion LHC/PCI 10/2013: mid LAD and Diag YURIY PCI, residual prox LCX 90-95% calcific and only 30-50% dist LM disease MPI 10/2017 (gillian): no STs. anteroseptal and inferolateral infarcts. no ischemia. EF 38%. Echo 04/2017: mild dec lvef, apical hk. nl rv. mod mr, mild-mod tr, mild as, rvsp 40-50 Echo 10/2013 : mildly reduced LVF, apical severe HK, anterior mod HK, mild to mod MR, mild to mod TR, RVSP 50-60 tele: NSR a/p: 82 yr old lady with known CAD/pci, chf, HTN, HPL, DM, pad, obesity, pafib (dx 05/2017 when admitted for copd) sent from pmd for low 02 sat a.e. copd, PNA: -per hospitalist chronic mixed diastolic/systolic CHF: -chronic, mild LV hypokinesis unchanged on recent echo 2017 -here with low o2 sat (85%) -bnp 4K, prior range 7K-18K. CT chest without congestion -here with presentation equivocal for acute chf 11/12 (in setting of copd exacerbation), treated with lasix 40 IV qd. - appears euvolemic today, defer diuretics CAD s/p PCI, atypical CP -pt s/p rota YURIY PCI of mid LAD and Diag 2013, residual prox LCX 90-95% calcific --medically managed -Has been stable, no anginal sxs. -atypical cp symptoms on prior admits, last 11/12 with enzymes neg, no acute isch ecg at that time -currently with non-exertional chest burning/squeezing sensation. trop 0.1-0.2- 0.1 is indeterminate range, flat trend, not c/w ACS -ECG's here unchanged vs prior, including repeat -recent nuclear stress test with no demonstrable ischemia (fixed defects, as above) -sx's may be due to ongoing airways restriction/copd exacerbation/PNA. -observe sx's, consider dobutamine stress echo if sx's continue -Cont home regimen: bb, statin, ac (no ASA per prior dr sorensen mgmt plan) JOLIE: -creat up above baseline, 1.4 here -per hospitalist HTN: -bp mostly controlled -same meds pafib: -in sinus here. cont home toprol -cont eliquis 5 bid for AC PAD: -known occluded R SFA on 2014 periph angiogram, with dz on L below knee -routine outpt f/u
[2018-04-15 12:05] LABS: ANISOCYTOSIS 2+; MACROCYTOSIS 0; OVALOCYTE 1+; PLATELET ESTIMATE NORMAL
[2018-04-15] MEDS: SODIUM CHLORIDE 1,000 ML IV SCH (12:49)
--- NOTE | 2018-04-15 13:07 | CONSULT ---
Consult - text type - Consultation Consultation Note: Renal consult for JOLIE This is a 83 year old woman with hx of Hypertension, COPD, CHF, CAD, HLD, DM, TIA who presented with SOB and cough and admitted for COPD exacerbation/ hypercarbic respiratory failure +/- CHF exacerbation with JOLIE that developed during admission. Pt reports that she feels a little better but is still coughing with sputum production. Has some chest pain when coughing alot. No fever, chills. No N/V/D. Making urine but nurse reports she has not gone to the bathroom today. + Constrast exposure on 04/12. PMhx: as above Allergies: PCN Social hx: former smoker Family Hx: NC ROS: as per HPI Vital Signs Temperature 98.2 F 04/15/18 08:52 Pulse Rate 75 04/15/18 08:52 Respiratory Rate 18 04/15/18 08:52 Blood Pressure 126/58 L 04/15/18 08:52 O2 Sat by Pulse Oximetry (%) 97 04/14/18 21:00 Intake & Output 04/12/18 04/13/18 04/14/18 04/15/18 23:59 23:59 23:59 23:59 Intake Total 571 131 6685 20 Balance 902 202 9945 20 Weight 98.883 kg 94.982 kg 99.337 kg NAD awake and alert on NC O2 RRR Dec sounds on inspiration but no rales soft NT/ND, no bladder distension no LE edema CBC, BMP 04/15/18 05:30 04/15/18 05:30 Laboratory Tests 04/15/18 05:30 Calcium 8.2 L Magnesium 2.6 H Current Medications Acetaminophen (Tylenol -) 650 mg PO Q4H PRN PRN Reason: FEVER Albuterol Sulfate (Ventolin 0.083% Nebulizer Soln -) 1 amp NEB Q4H PRN PRN Reason: SHORT OF BREATH/WHEEZING Last Admin: 04/14/18 17:43 Dose: 1 amp Apixaban (Eliquis -) 5 mg PO BID [facility] Last Admin: 04/15/18 09:09 Dose: 5 mg Arformoterol Tartrate (Brovana (Restricted To Pulmonology/Resp) -) 1 amp NEB RBID [facility] Last Admin: 04/15/18 08:35 Dose: 1 amp Atorvastatin Calcium (Lipitor -) 40 mg PO HS [facility] Last Admin: 04/14/18 22:02 Dose: 40 mg Docusate Sodium (Colace -) 100 mg PO TID [facility] Last Admin: 04/15/18 13:04 Dose: 100 mg Levofloxacin (Levaquin 250 Mg Premixed Ivpb -) 250 mg in 50 mls @ 50 mls/hr IVPB DAILY [facility]; Protocol Last Admin: 04/15/18 09:18 Dose: 50 mls/hr Sodium Chloride (Normal Saline -) 1,000 mls @ 75 mls/hr IV ASDIR [facility] Last Admin: 04/15/18 12:49 Dose: 75 mls/hr Insulin Aspart (Novolog Vial Sliding Scale -) 0 vial SQ ACHS [facility]; Protocol Last Admin: 04/15/18 12:44 Dose: 12 units Insulin Detemir (Levemir Vial) 30 units SQ BID@0700,2200 [facility] Last Admin: 04/15/18 06:51 Dose: 30 units Lactobacillus Acidophilus (Bacid -) 1 tab PO DAILY [facility] Last Admin: 04/15/18 09:09 Dose: 1 tab Levothyroxine Sodium (Synthroid -) 25 mcg PO AM [facility] Methylprednisolone Sodium Succinate (Solu-Medrol -) 40 mg IVPUSH Q8H-IV [facility] Metoprolol Succinate (Toprol Xl -) 25 mg PO DAILY [facility] Last Admin: 04/15/18 09:10 Dose: 25 mg Pantoprazole Sodium (Protonix -) 40 mg PO DAILY [facility] Last Admin: 04/15/18 09:10 Dose: 40 mg Polyethylene Glycol (Miralax (For Daily Use) -) 17 gm PO BID [facility] Last Admin: 04/15/18 09:29 Dose: Not Given Tiotropium [place] (Spiriva Respimat) 2 puff IH DAILY [facility] Last Admin: 04/15/18 09:11 Dose: 2 puff 83 year old woman with hx of Hypertension, COPD, CHF, CAD, HLD, DM, TIA who presented with SOB and cough and admitted for COPD exacerbation/hypercarbic respiratory failure +/- CHF exacerbation with JOLIE that developed during admission. 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
[2018-04-15 15:42] LABS: URINE APPEARANCE CLEAR; URINE BILIRUBIN NEGATIVE (<2.0 mg/dL); URINE COLOR LTYELLOW; URINE GLUCOSE (UA) 2+ (NEGATIVE); URINE KETONE NEGATIVE (NEGATIVE); URINE LEUK ESTERASE NEGATIVE (NEGATIVE); URINE NITRITE NEGATIVE (NEGATIVE); URINE PROTEIN NEGATIVE (NEGATIVE); URINE UROBILINOGEN NEGATIVE mg/dL (0.2-1.0)
[2018-04-15] MEDS: ATORVASTATIN CA 40 MG TABLET (FP) PO SCH (21:29)
[2018-04-16] MEDS: methylPREDNISolone NA SUCC 40 MG/1 ML VIAL IVPUSH SCH ×3 (01:12→17:23)
[2018-04-16] MEDS: SODIUM CHLORIDE 1,000 ML IV SCH (03:50)
[2018-04-16] MEDS: INSULIN SLIDING SCALE (NOVOLOG) 1 VIAL SQ SCH ×4 (06:14→21:47)
[2018-04-16] MEDS: DOCUSATE SODIUM 100 MG CAPSULE (FP) PO SCH ×3 (06:14→21:45)
[2018-04-16] MEDS: LEVOTHYROXINE NA 25 MCG TABLET (FP) PO SCH (06:14)
[2018-04-16 06:44] LABS: BASO % 0.1 % (0-2.0); HEMATOCRIT 32.6 % (32.4-45.2); HEMOGLOBIN 10.4 GM/dL (10.7-15.3); LYMPH % 5.4 % (8-40); MCH 21.1 pg (25.7-33.7); MCHC 31.9 g/dl (32.0-36.0); MEAN CELL VOLUME 66.1 fl (80-96); MEAN PLT VOLUME 8.3 fl (7.5-11.1); MONO % 4.5 % (3.8-10.2); PLATELET COUNT 239 K/MM3 (134-434); RBC 4.92 M/mm3 (3.60-5.2); RDW 15.3 % (11.6-15.6); WHITE BLOOD COUNT 6.6 K/mm3 (4.0-10.0)
[2018-04-16 07:06] LABS: ANION GAP 4 MMOL/L (8-16); BLOOD UREA NITROGEN 57 mg/dL (7-18); CALCIUM 8.3 mg/dL (8.5-10.1); CHLORIDE 102 mmol/L (98-107); CO2 34 mmol/L (21-32); CREATININE 1.3 mg/dL (0.55-1.3); GLUCOSE,RANDOM 73 mg/dL (74-106); MAGNESIUM 2.7 mg/dL (1.8-2.4); PHOSPHOROUS 3.9 mg/dL (2.5-4.9); POTASSIUM 5.1 mmol/L (3.5-5.1); SODIUM 139 mmol/L (136-145)
[2018-04-16] MEDS: ARFORMOTEROL TARTRATE 15 MCG/2 ML VIAL NEB SCH (07:30)
[2018-04-16] MEDS: LACTOBACILLUS ACIDOPHILUS 1 TABLET PO SCH (10:33)
[2018-04-16] MEDS: APIXABAN 5 MG TABLET PO SCH ×2 (10:33→21:45)
[2018-04-16] MEDS: POLYETHYLENE GLYCOL 3350 119 GM BTL PO SCH ×2 (10:33→21:54)
[2018-04-16] MEDS: PANTOPRAZOLE 40 MG TABLET (FP) PO SCH (10:33)
[2018-04-16] MEDS: metoPROLOL SUCCINATE 25 MG TAB.SR.24H (FP) PO SCH ×2 (10:33→22:03)
[2018-04-16] MEDS: TIOTROPIUM BROMIDE 2.5 MCG (SPIRIVA) RESPIMAT INHALER IH SCH (10:34)
--- NOTE | 2018-04-16 10:53 | PN ---
Progress Note, Physician Chief Complaint: Pt sitting in chair in no acute distress. Denies any chest pain, nausea, vomiting, unilateral weakness. - Current Medication List Current Medications: Active Medications Acetaminophen (Tylenol -) 650 mg PO Q4H PRN PRN Reason: FEVER Albuterol Sulfate (Ventolin 0.083% Nebulizer Soln -) 1 amp NEB Q4H PRN PRN Reason: SHORT OF BREATH/WHEEZING Last Admin: 04/14/18 17:43 Dose: 1 amp Apixaban (Eliquis -) 5 mg PO BID [facility] Last Admin: 04/16/18 10:33 Dose: 5 mg Arformoterol Tartrate (Brovana (Restricted To Pulmonology/Resp) -) 1 amp NEB RBID [facility] Last Admin: 04/16/18 07:30 Dose: 1 amp Atorvastatin [place] (Lipitor -) 40 mg PO HS [facility] Last Admin: 04/15/18 21:29 Dose: 40 mg Docusate Sodium (Colace -) 100 mg PO TID [facility] Last Admin: 04/16/18 06:14 Dose: 100 mg Levofloxacin (Levaquin 250 Mg Premixed Ivpb -) 250 mg in 50 mls @ 50 mls/hr IVPB DAILY [facility]; Protocol Last Admin: 04/16/18 10:33 Dose: 50 mls/hr Sodium Chloride (Normal Saline -) 1,000 mls @ 75 mls/hr IV ASDIR [facility] Last Admin: 04/16/18 03:50 Dose: 75 mls/hr Insulin Aspart (Novolog Vial Sliding Scale -) 0 vial SQ ACHS [facility]; Protocol Last Admin: 04/16/18 06:14 Dose: Not Given Insulin Detemir (Levemir Vial) 30 units SQ BID@0700,2200 [facility] Last Admin: 04/15/18 21:31 Dose: 30 units Lactobacillus Acidophilus (Bacid -) 1 tab PO DAILY [facility] Last Admin: 04/16/18 10:33 Dose: 1 tab Levothyroxine Sodium (Synthroid -) 25 mcg PO AM [facility] Last Admin: 04/16/18 06:14 Dose: 25 mcg Methylprednisolone Sodium Succinate (Solu-Medrol -) 40 mg IVPUSH Q8H-IV [facility] Last Admin: 04/16/18 10:33 Dose: 40 mg Metoprolol Succinate (Toprol Xl -) 25 mg PO DAILY [facility] Last Admin: 04/16/18 10:33 Dose: 25 mg Pantoprazole Sodium (Protonix -) 40 mg PO DAILY [facility] Last Admin: 04/16/18 10:33 Dose: 40 mg Polyethylene Glycol (Miralax (For Daily Use) -) 17 gm PO BID [facility] Last Admin: 04/16/18 10:33 Dose: 17 grams Tiotropium [place] (Spiriva Respimat) 2 puff IH DAILY [facility] Last Admin: 04/16/18 10:34 Dose: 2 puff - Objective Vital Signs: Vital Signs Temperature 97.7 F 04/16/18 05:26 Pulse Rate 65 04/16/18 05:26 Respiratory Rate 20 04/16/18 05:26 Blood Pressure 134/70 04/16/18 05:26 O2 Sat by Pulse Oximetry (%) 98 04/15/18 20:50 Constitutional: Yes: Well Nourished, No Distress, Calm Cardiovascular: Yes: Regular Rate and Rhythm Respiratory: Yes: Regular, Diminished, On Nasal O2, Rhonchi, SOB (mild). No: Accessory Muscle Use, Tachypnea, Wheezes Gastrointestinal: Yes: WNL, Normal Bowel Sounds, Soft, Abdomen, Obese. No: Distention, Tenderness Genitourinary: Yes: WNL Extremities: Yes: WNL Edema: Yes Edema: LLE: Trace, RLE: Trace Neurological: Yes: WNL, Alert, Oriented Psychiatric: Yes: WNL, Alert, Oriented Labs: CBC, BMP 04/16/18 05:30 04/16/18 05:30 INR, PTT INR 0.98 (0.83-1.09) 04/12/18 11:08 Assessment/Plan (1) Pneumonia Assessment/Plan: community acquired wbc wnl levaquin day 5 Code(s): J18.9 - PNEUMONIA, UNSPECIFIED ORGANISM Qualifiers: Pneumonia type: due to unspecified organism Laterality: right Lung location: middle lobe of lung Qualified Code(s): J18.1 - Lobar pneumonia, unspecified organism (2) Acute on chronic respiratory failure with hypoxemia Assessment/Plan: improving 2/2 copd exacerbation, pna O2 via nc medrol taper, bronchodilators pulm following Code(s): J96.21 - ACUTE AND CHRONIC RESPIRATORY FAILURE WITH HYPOXIA (3) COPD exacerbation Assessment/Plan: O2 dependent as above Code(s): J44.1 - CHRONIC OBSTRUCTIVE PULMONARY DISEASE W (ACUTE) EXACERBATION (4) JOLIE (acute kidney injury) Assessment/Plan: improving, urine studies consistent w/ pre renal hold lasix IVF stopped encourage po intake nephrology following Code(s): N17.9 - ACUTE KIDNEY FAILURE, UNSPECIFIED (5) Chest pain Assessment/Plan: acs ruled out Code(s): R07.9 - CHEST PAIN, UNSPECIFIED (6) CHF (congestive heart failure) Assessment/Plan: not in acute exacerbation lasix on hold due to jolie Code(s): I50.9 - HEART FAILURE, UNSPECIFIED Qualifiers: Heart failure type: combined systolic and diastolic Heart failure chronicity: chronic Qualified Code(s): I50.42 - Chronic combined systolic ( congestive) and diastolic (congestive) heart failure (7) Hypothyroid Assessment/Plan: stable continue synthroid Code(s): E03.9 - HYPOTHYROIDISM, UNSPECIFIED (8) CAD (coronary artery disease) Assessment/Plan: no acute ACS continue statin, ac Code(s): I25.10 - ATHSCL HEART DISEASE OF [place] CORONARY ARTERY W/O ANG PCTRS Qualifiers: Coronary Disease-Associated Artery/Lesion type: [place] artery [place] vs. 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 insulin use: with petroleum terminal plant operator use Diabetes mellitus complication status: with hyperglycemia Qualified Code(s): E11.65 - Type 2 diabetes mellitus with hyperglycemia; Z79.4 - exterminator helper termite (current) use of insulin (10) Atrial fibrillation Assessment/Plan: chronic continue metoprolol, eliquis Code(s): I48.91 - UNSPECIFIED ATRIAL FIBRILLATION Qualifiers: Atrial fibrillation type: chronic Qualified Code(s): I48.2 - Chronic atrial fibrillation (11) Hyperlipidemia Assessment/Plan: stable continue statin Code(s): E78.5 - HYPERLIPIDEMIA, UNSPECIFIED Qualifiers: Hyperlipidemia type: pure hypercholesterolemia Qualified Code(s): E78.00 - Pure hypercholesterolemia, unspecified; E78.0 - Pure hypercholesterolemia (12) HTN (hypertension) Assessment/Plan: controlled continue home regimen Code(s): I10 - ESSENTIAL (PRIMARY) HYPERTENSION Qualifiers: Hypertension type: essential hypertension Qualified Code(s): I10 - Essential (primary) hypertension (13) Hyponatremia Assessment/Plan: resolved suspect pseudo 2/2 hyperglycemia Code(s): E87.1 - HYPO-OSMOLALITY AND HYPONATREMIA (14) Hyperglycemia, drug-induced Assessment/Plan: 2/2 steroids improving plan as above Code(s): R73.9 - HYPERGLYCEMIA, UNSPECIFIED; T50.905A - ADVERSE EFFECT OF UNSP DRUG/MEDS/BIOL SUBST, INIT (15) Hyperkalemia Assessment/Plan: resolved Code(s): E87.5 - HYPERKALEMIA Dispo: Home w/ VNS when pulm cleared
--- NOTE | 2018-04-16 10:59 | PN ---
Progress Note (short form) - Note Progress Note: cc: cp gets chest pain when coughing hard. no palps, dizziness, lightheadedness, dyspnea Current Medications Generic Name Dose Route Start Last Admin Trade Name Freq PRN Reason Stop Dose Admin Acetaminophen 650 mg 04/12/18 14:17 Tylenol - PO Q4H PRN FEVER Albuterol Sulfate 1 amp 04/12/18 14:21 04/14/18 17:43 Ventolin 0.083% Nebulizer Soln - NEB 1 amp Q4H PRN Administration SHORT OF BREATH/WHEEZING Apixaban 5 mg 04/12/18 22:00 04/16/18 10:33 Eliquis - PO 5 mg BID RYANN Administration Arformoterol Tartrate 1 amp 04/13/18 20:00 04/16/18 07:30 Brovana (Restricted To Pulmonology/Resp) - NEB 1 amp RBID RYANN Administration Atorvastatin Calcium 40 mg 04/12/18 22:00 04/15/18 21:29 Lipitor - PO 40 mg HS RYANN Administration Docusate Sodium 100 mg 04/14/18 15:15 04/16/18 06:14 Colace - PO 100 mg TID RYANN Administration Levofloxacin 250 mg in 50 mls @ 50 mls/hr 04/13/18 10:00 04/16/18 10:33 Levaquin 250 Mg Premixed Ivpb - IVPB 50 mls/hr DAILY RYANN Administration Protocol Sodium Chloride 1,000 mls @ 75 mls/hr 04/15/18 11:30 04/16/18 03:50 Normal Saline - IV 75 mls/hr ASDIR RYANN Administration Insulin Aspart 0 vial 04/14/18 12:14 04/16/18 06:14 Novolog Vial Sliding Scale - SQ Not Given ACHS RYANN Protocol Insulin Detemir 20 units 04/16/18 11:00 Levemir Vial SQ BID@0700,2200 RYANN Lactobacillus Acidophilus 1 tab 04/13/18 10:00 04/16/18 10:33 Bacid - PO 1 tab DAILY RYANN Administration Levothyroxine Sodium 25 mcg 04/16/18 07:00 04/16/18 06:14 Synthroid - PO 25 mcg AM RYANN Administration Methylprednisolone Sodium Succinate 40 mg 04/15/18 18:00 04/16/18 10:33 Solu-Medrol - IVPUSH 40 mg Q8H-IV RYANN Administration Metoprolol Succinate 25 mg 04/16/18 22:00 Toprol Xl - PO BID RYANN Pantoprazole Sodium 40 mg 04/13/18 10:00 04/16/18 10:33 Protonix - PO 40 mg DAILY RYANN Administration Polyethylene Glycol 17 gm 04/14/18 22:00 04/16/18 10:33 Miralax (For Daily Use) - PO 17 grams BID RYANN Administration Tiotropium [place] 2 puff 04/14/18 12:00 04/16/18 10:34 Spiriva Respimat IH 2 puff DAILY RYANN Administration CBC, BMP 04/16/18 05:30 04/16/18 05:30 Vital Signs: Vital Signs Period Temp Pulse Resp BP Sys/Gardner Pulse Ox Last 24 Hr 97.7 F-98.1 F 63-67 18-20 134-151/60-70 98 Constitutional: Yes: Well Nourished, No Distress, Obese Eyes: No: Sclera Icterus Respiratory: Yes: Regular, Wheezes (diffuse). No: Accessory Muscle Use, Rales Gastrointestinal: Yes: Normal Bowel Sounds. No: Distention, Hepatomegaly, Palpable Mass, Tenderness Cardiovascular: Yes: Regular Rate and Rhythm JVD: No Heart Sounds: Yes: S1, S2. No: Gallop, Irregular Murmur: No: Systolic Murmur, Diastolic Murmur Extremities: No: Cold, Cyanosis Edema: No Peripheral Pulses: 2+ Left Carotid, 2+ Right Carotid, 2+ Left Doralis Pedis, 2+ Right Dorsalis Pedis Integumentary: No: Jaundice Neurological: Yes: Alert, Oriented (x3) Psychiatric: No: Agitated CBC, BMP 04/16/18 05:30 04/16/18 05:30 ECG #1 04/12: NSR, RBBB, ? old IWMI, ? old AWMI--no change vs 11/12 #2 04/12: no change 04/13: no change CTA chest 04/14: mild dilated PA suggestive of pulm HTN. RLL opacity, patchy opacities elsewhere. no pulm edema or effusion LHC/PCI 10/2013: mid LAD and Diag YURIY PCI, residual prox LCX 90-95% calcific and only 30-50% dist LM disease MPI 10/2017 (gillian): no STs. anteroseptal and inferolateral infarcts. no ischemia. EF 38%. Echo 04/2017: mild dec lvef, apical hk. nl rv. mod mr, mild-mod tr, mild as, rvsp 40-50 Echo 10/2013 : mildly reduced LVF, apical severe HK, anterior mod HK, mild to mod MR, mild to mod TR, RVSP 50-60 tele: afib, rvr 120s at times a/p: 82 yr old lady with known CAD/pci, chf, HTN, HPL, DM, pad, obesity, pafib (dx 05/2017 when admitted for copd) sent from pmd for low 02 sat a.e. copd, PNA: -per hospitalist chronic mixed diastolic/systolic CHF: -chronic, mild LV hypokinesis unchanged on recent echo 2017 -here with low o2 sat (85%) -bnp 4K, prior range 7K-18K. CT chest without congestion -here with presentation equivocal for acute chf 11/12 (in setting of copd exacerbation), treated with lasix 40 IV qd. -appears euvolemic today, defer diuretics CAD s/p PCI, atypical CP -pt s/p rota YURIY PCI of mid LAD and Diag 2013, residual prox LCX 90-95% calcific --medically managed -Has been stable, no anginal sxs. -atypical cp symptoms on prior admits, last 11/12 with enzymes neg, no acute isch ecg at that time -currently with non-exertional chest burning/squeezing sensation. trop 0.1-0.2- 0.1 is indeterminate range, flat trend, not c/w ACS -ECG's here unchanged vs prior, including repeat -recent nuclear stress test with no demonstrable ischemia (fixed defects, as above) -sx's may be due to ongoing airways restriction/copd exacerbation/PNA. -Cont home regimen: bb, statin, ac (no ASA per prior dr sorensen mgmt plan) JOLIE: -cr improving HTN: -bp mostly controlled -same meds pafib: -rvr this AM, will increase toprol to 25 bid -cont eliquis 5 bid for AC PAD: -known occluded R SFA on 2015 periph angiogram, with dz on L below knee -routine outpt f/u
[2018-04-16 12:26] LABS: ANISOCYTOSIS 1+; MACROCYTOSIS 1+; OVALOCYTE 1+; PLATELET ESTIMATE NORMAL
--- NOTE | 2018-04-16 12:30 | PN ---
Progress Note (short form) - Note Progress Note: Renal follow up for JOLIE Pt seen and examined at the bedside awake and alert no acute complaints has cough, but is improving making urine tolerating oral diet Vital Signs Temperature 97.7 F 04/16/18 05:26 Pulse Rate 65 04/16/18 05:26 Respiratory Rate 20 04/16/18 05:26 Blood Pressure 134/70 04/16/18 05:26 O2 Sat by Pulse Oximetry (%) 98 04/15/18 20:50 Intake & Output 04/13/18 04/14/18 04/15/18 04/16/18 23:59 23:59 23:59 23:59 Intake Total 410 3337 074 1177 Balance 410 3227 537 1306 Weight 94.982 kg 99.337 kg 102.24 kg 102.24 kg NAD awake and alert neck supple CTA No LE edema CBC, BMP 04/16/18 05:30 04/16/18 05:30 Current Medications Acetaminophen (Tylenol -) 650 mg PO Q4H PRN PRN Reason: FEVER Albuterol Sulfate (Ventolin 0.083% Nebulizer Soln -) 1 amp NEB Q4H PRN PRN Reason: SHORT OF BREATH/WHEEZING Last Admin: 04/14/18 17:43 Dose: 1 amp Apixaban (Eliquis -) 5 mg PO BID [facility] Last Admin: 04/16/18 10:33 Dose: 5 mg Arformoterol Tartrate (Brovana (Restricted To Pulmonology/Resp) -) 1 amp NEB RBID [facility] Last Admin: 04/16/18 07:30 Dose: 1 amp Atorvastatin Calcium (Lipitor -) 40 mg PO HS [facility] Last Admin: 04/15/18 21:29 Dose: 40 mg Docusate Sodium (Colace -) 100 mg PO TID [facility] Last Admin: 04/16/18 06:14 Dose: 100 mg Levofloxacin (Levaquin 250 Mg Premixed Ivpb -) 250 mg in 50 mls @ 50 mls/hr IVPB DAILY [facility]; Protocol Last Admin: 04/16/18 10:33 Dose: 50 mls/hr Sodium Chloride (Normal Saline -) 1,000 mls @ 75 mls/hr IV ASDIR [facility] Last Admin: 04/16/18 03:50 Dose: 75 mls/hr Insulin Aspart (Novolog Vial Sliding Scale -) 0 vial SQ ACHS [facility]; Protocol Last Admin: 04/16/18 06:14 Dose: Not Given Insulin Detemir (Levemir Vial) 20 units SQ BID@0700,2200 [facility] Lactobacillus Acidophilus (Bacid -) 1 tab PO DAILY [facility] Last Admin: 04/16/18 10:33 Dose: 1 tab Levothyroxine Sodium (Synthroid -) 25 mcg PO AM [facility] Last Admin: 04/16/18 06:14 Dose: 25 mcg Methylprednisolone Sodium Succinate (Solu-Medrol -) 40 mg IVPUSH Q8H-IV [facility] Last Admin: 04/16/18 10:33 Dose: 40 mg Metoprolol Succinate (Toprol Xl -) 25 mg PO BID [facility] Pantoprazole Sodium (Protonix -) 40 mg PO DAILY [facility] Last Admin: 04/16/18 10:33 Dose: 40 mg Polyethylene Glycol (Miralax (For Daily Use) -) 17 gm PO BID [facility] Last Admin: 04/16/18 10:33 Dose: 17 grams Tiotropium [place] (Spiriva Respimat) 2 puff IH DAILY [facility] Last Admin: 04/16/18 10:34 Dose: 2 puff 83 year old woman with hx of Hypertension, COPD, CHF, CAD, HLD, DM, TIA who presented with SOB and cough and admitted for COPD exacerbation/hypercarbic respiratory failure +/- CHF exacerbation with JOLIE that developed during admission. #JOLIE likely due to intravascular volume depletion +/- contrast nephropathy ( contrast exposure on 04/12) #COPD exacerbation #Hx of CHF #CAD #Hypertension Renal function improved s/p IVF can discontinue IVF and trend with oral intake alone would continue to hold diuretics urine studies consistent with preserved tubular function and did not show any significant proteinirua. BUN high likely due to steroids as opposed to renal insufficiency Thank you Navi Agosto DO
--- NOTE | 2018-04-16 12:31 | PN ---
Progress Note (short form) - Note Progress Note: PULMONARY States breathing is slightly better. +nonproductive cough and wheezing. +chest pain when coughing. Vital Signs Period Temp Pulse Resp BP Sys/Gardner Pulse Ox Last 24 Hr 97.7 F-98.1 F 63-67 18-20 134-151/60-70 98 Gen: NAD in chair Heart: RRR Lung: scattered rhonchi, wheezes Abd: soft, nontender Ext: trace edema CBC, BMP 04/16/18 05:30 04/16/18 05:30 Active Medications Acetaminophen (Tylenol -) 650 mg PO Q4H PRN PRN Reason: FEVER Albuterol Sulfate (Ventolin 0.083% Nebulizer Soln -) 1 amp NEB Q4H PRN PRN Reason: SHORT OF BREATH/WHEEZING Last Admin: 04/14/18 17:43 Dose: 1 amp Apixaban (Eliquis -) 5 mg PO BID [facility] Last Admin: 04/16/18 10:33 Dose: 5 mg Arformoterol Tartrate (Brovana (Restricted To Pulmonology/Resp) -) 1 amp NEB RBID [facility] Last Admin: 04/16/18 07:30 Dose: 1 amp Atorvastatin Calcium (Lipitor -) 40 mg PO HS RYANN Last Admin: 04/15/18 21:29 Dose: 40 mg Docusate Sodium (Colace -) 100 mg PO TID RYANN Last Admin: 04/16/18 06:14 Dose: 100 mg Levofloxacin (Levaquin 250 Mg Premixed Ivpb -) 250 mg in 50 mls @ 50 mls/hr IVPB DAILY RYANN; Protocol Last Admin: 04/16/18 10:33 Dose: 50 mls/hr Sodium Chloride (Normal Saline -) 1,000 mls @ 75 mls/hr IV ASDIR [facility] Last Admin: 04/16/18 03:50 Dose: 75 mls/hr Insulin Aspart (Novolog Vial Sliding Scale -) 0 vial SQ ACHS RYANN; Protocol Last Admin: 04/16/18 06:14 Dose: Not Given Insulin Detemir (Levemir Vial) 20 units SQ BID@0700,2200 [facility] Lactobacillus Acidophilus (Bacid -) 1 tab PO DAILY RYANN Last Admin: 04/16/18 10:33 Dose: 1 tab Levothyroxine Sodium (Synthroid -) 25 mcg PO AM [facility] Last Admin: 04/16/18 06:14 Dose: 25 mcg Methylprednisolone Sodium Succinate (Solu-Medrol -) 40 mg IVPUSH Q8H-IV [facility] Last Admin: 04/16/18 10:33 Dose: 40 mg Metoprolol Succinate (Toprol Xl -) 25 mg PO BID [facility] Pantoprazole Sodium (Protonix -) 40 mg PO DAILY [facility] Last Admin: 04/16/18 10:33 Dose: 40 mg Polyethylene Glycol (Miralax (For Daily Use) -) 17 gm PO BID [facility] Last Admin: 04/16/18 10:33 Dose: 17 grams Tiotropium [place] (Spiriva Respimat) 2 puff IH DAILY [facility] Last Admin: 04/16/18 10:34 Dose: 2 puff A/P Acute on Chronic Hypoxic and Hypercapneic Respiratory Failure Acute COPD Exacerbation Pneumonia LV Diastolic/Systolic Dysfunction +Troponins likely Demand Ischemia Paroxysmal Atrial Fibrillation Acute Kidney Injury HTN DM Hypothyroidism - continue medrol at current dose - can likely taper in AM if continues to improve - will make inhaled bronchodilators as needed given episode of rapid afib - continue antibiotics - rate control - continue anticoagulation - will need outpt f/u of chest imaging to ensure resolution
[2018-04-16] MEDS ORDERED: ARFORMOTEROL TARTRATE 15 MCG/2 ML VIAL NEB ONE (19:47)
[2018-04-16] MEDS: ALBUTEROL SO4 0.083% IH SOL 2.5 MG/3 ML VIAL.NEB. NEB PRN (19:50)
[2018-04-16] MEDS: ATORVASTATIN CA 40 MG TABLET (FP) PO SCH (21:45)
[2018-04-16] MEDS: INSULIN (LEVEMIR) 100 UNITS/ML UNITS SQ SCH (21:46)
[2018-04-17] MEDS: methylPREDNISolone NA SUCC 40 MG/1 ML VIAL IVPUSH SCH ×3 (01:19→21:45)
[2018-04-17] MEDS: LEVOTHYROXINE NA 25 MCG TABLET (FP) PO SCH (06:09)
[2018-04-17] MEDS: DOCUSATE SODIUM 100 MG CAPSULE (FP) PO SCH ×3 (06:09→21:52)
[2018-04-17] MEDS: INSULIN SLIDING SCALE (NOVOLOG) 1 VIAL SQ SCH ×4 (06:13→21:46)
[2018-04-17] MEDS: INSULIN (LEVEMIR) 100 UNITS/ML UNITS SQ SCH ×2 (06:14→21:45)
[2018-04-17 07:28] LABS: BASO % 0.1 % (0-2.0); HEMATOCRIT 33.8 % (32.4-45.2); HEMOGLOBIN 10.8 GM/dL (10.7-15.3); LYMPH % 4.4 % (8-40); MCH 21.2 pg (25.7-33.7); MCHC 31.9 g/dl (32.0-36.0); MEAN CELL VOLUME 66.4 fl (80-96); MEAN PLT VOLUME 8.5 fl (7.5-11.1); MONO % 2.2 % (3.8-10.2); NEUT % 93.3 % (42.8-82.8); PLATELET COUNT 258 K/MM3 (134-434); RBC 5.09 M/mm3 (3.60-5.2); RDW 15.6 % (11.6-15.6)
[2018-04-17 07:50] LABS: ANION GAP 2 MMOL/L (8-16); BLOOD UREA NITROGEN 54 mg/dL (7-18); CALCIUM 8.2 mg/dL (8.5-10.1); CHLORIDE 101 mmol/L (98-107); CO2 35 mmol/L (21-32); CREATININE 1.2 mg/dL (0.55-1.3); GLUCOSE,RANDOM 279 mg/dL (74-106); MAGNESIUM 2.8 mg/dL (1.8-2.4); PHOSPHOROUS 3.5 mg/dL (2.5-4.9); POTASSIUM 5.6 mmol/L (3.5-5.1); SODIUM 138 mmol/L (136-145)
[2018-04-17] MEDS: FUROSEMIDE 40 MG TABLET (FP) PO SCH (09:53)
[2018-04-17] MEDS: LACTOBACILLUS ACIDOPHILUS 1 TABLET PO SCH (09:53)
[2018-04-17] MEDS: metoPROLOL SUCCINATE 25 MG TAB.SR.24H (FP) PO SCH ×2 (09:54→21:46)
[2018-04-17] MEDS: PANTOPRAZOLE 40 MG TABLET (FP) PO SCH (09:54)
[2018-04-17] MEDS: POLYETHYLENE GLYCOL 3350 119 GM BTL PO SCH ×2 (09:54→21:50)
[2018-04-17] MEDS: APIXABAN 5 MG TABLET PO SCH ×2 (09:54→21:50)
[2018-04-17] MEDS: TIOTROPIUM BROMIDE 2.5 MCG (SPIRIVA) RESPIMAT INHALER IH SCH (09:55)
--- NOTE | 2018-04-17 10:28 | PN ---
Progress Note, Physician Chief Complaint: Pt sitting in chair in no acute distress. reports feeling better. Denies any chest pain, nausea, vomiting, unilateral weakness. - Current Medication List Current Medications: Active Medications Acetaminophen (Tylenol -) 650 mg PO Q4H PRN PRN Reason: FEVER Albuterol Sulfate (Ventolin 0.083% Nebulizer Soln -) 1 amp NEB Q4H PRN PRN Reason: SHORT OF BREATH/WHEEZING Last Admin: 04/16/18 19:50 Dose: 1 amp Apixaban (Eliquis -) 5 mg PO BID [facility] Last Admin: 04/17/18 09:54 Dose: 5 mg Atorvastatin Calcium (Lipitor -) 40 mg PO HS [facility] Last Admin: 04/16/18 21:45 Dose: 40 mg Docusate Sodium (Colace -) 100 mg PO TID [facility] Last Admin: 04/17/18 06:09 Dose: 100 mg Furosemide (Lasix -) 40 mg PO DAILY [facility] Last Admin: 04/17/18 09:53 Dose: 40 mg Levofloxacin (Levaquin 250 Mg Premixed Ivpb -) 250 mg in 50 mls @ 50 mls/hr IVPB DAILY [facility]; Protocol Last Admin: 04/17/18 09:54 Dose: 50 mls/hr Insulin Aspart (Novolog Vial Sliding Scale -) 0 vial SQ ACHS RYANN; Protocol Last Admin: 04/17/18 06:13 Dose: 10 units Insulin Detemir (Levemir Vial) 20 units SQ BID@0700,2200 [facility] Last Admin: 04/17/18 06:14 Dose: 20 units Lactobacillus Acidophilus (Bacid -) 1 tab PO DAILY [facility] Last Admin: 04/17/18 09:53 Dose: 1 tab Levothyroxine Sodium (Synthroid -) 25 mcg PO AM [facility]ANN Last Admin: 04/17/18 06:09 Dose: 25 mcg Methylprednisolone Sodium Succinate (Solu-Medrol -) 40 mg IVPUSH Q8H-IV [facility]ANN Last Admin: 04/17/18 09:53 Dose: 40 mg Metoprolol Succinate (Toprol Xl -) 25 mg PO BID [facility] Last Admin: 04/17/18 09:54 Dose: 25 mg Pantoprazole Sodium (Protonix -) 40 mg PO DAILY [facility] Last Admin: 04/17/18 09:54 Dose: 40 mg Polyethylene Glycol (Miralax (For Daily Use) -) 17 gm PO BID [facility] Last Admin: 04/17/18 09:54 Dose: Not Given Tiotropium [place] (Spiriva Respimat) 2 puff IH DAILY [facility] Last Admin: 04/17/18 09:55 Dose: 2 puff - Objective Vital Signs: Vital Signs Temperature 97.3 F L 04/17/18 02:00 Pulse Rate 64 04/17/18 02:00 Respiratory Rate 20 04/17/18 02:00 Blood Pressure 133/63 04/17/18 02:00 O2 Sat by Pulse Oximetry (%) 100 04/16/18 20:42 Constitutional: Yes: Well Nourished, No Distress, Calm Cardiovascular: Yes: WNL, Regular Rate and Rhythm Respiratory: Yes: Regular, Diminished, On Nasal O2, Rhonchi, SOB on Exertion, Wheezes. No: Accessory Muscle Use, Tachypnea Gastrointestinal: Yes: WNL, Normal Bowel Sounds, Soft, Abdomen, Obese. No: Distention, Tenderness Genitourinary: Yes: WNL Musculoskeletal: Yes: WNL Extremities: Yes: WNL Edema: No Neurological: Yes: WNL, Alert, Oriented Psychiatric: Yes: WNL, Alert, Oriented Labs: CBC, BMP 04/17/18 05:30 04/17/18 05:30 INR, PTT INR 0.98 (0.83-1.09) 04/12/18 11:08 Assessment/Plan (1) Pneumonia Assessment/Plan: community acquired wbc wnl levaquin day 6 Code(s): J18.9 - PNEUMONIA, UNSPECIFIED ORGANISM Qualifiers: Pneumonia type: due to unspecified organism Laterality: right Lung location: middle lobe of lung Qualified Code(s): J18.1 - Lobar pneumonia, unspecified organism (2) Acute on chronic respiratory failure with hypoxemia Assessment/Plan: improving 2/2 copd exacerbation, pna O2 via nc medrol taper, bronchodilators pulm following Code(s): J96.21 - ACUTE AND CHRONIC RESPIRATORY FAILURE WITH HYPOXIA (3) COPD exacerbation Assessment/Plan: O2 dependent as above Code(s): J44.1 - CHRONIC OBSTRUCTIVE PULMONARY DISEASE W (ACUTE) EXACERBATION (4) JOLIE (acute kidney injury) Assessment/Plan: improved encourage po intake nephrology following Code(s): N17.9 - ACUTE KIDNEY FAILURE, UNSPECIFIED (5) Chest pain Assessment/Plan: acs ruled out Code(s): R07.9 - CHEST PAIN, UNSPECIFIED (6) CHF (congestive heart failure) Assessment/Plan: not in acute exacerbation lasix restarted Code(s): I50.9 - HEART FAILURE, UNSPECIFIED Qualifiers: Heart failure type: combined systolic and diastolic Heart failure chronicity: chronic Qualified Code(s): I50.42 - Chronic combined systolic ( congestive) and diastolic (congestive) heart failure (7) Hypothyroid Assessment/Plan: stable continue synthroid Code(s): E03.9 - HYPOTHYROIDISM, UNSPECIFIED (8) CAD (coronary artery disease) Assessment/Plan: no acute ACS continue statin, ac Code(s): I25.10 - ATHSCL HEART DISEASE OF [place] CORONARY ARTERY W/O ANG PCTRS Qualifiers: Coronary Disease-Associated Artery/Lesion type: [place] artery [place] vs. transplanted heart: [place] heart Associated angina: without angina Qualified Code(s): I25.10 - Atherosclerotic heart disease of [place] coronary artery without angina pectoris (9) Diabetes Assessment/Plan: hyperglycemia improving bgm, levemir insulin sliding scale monitor Code(s): E11.9 - TYPE 2 DIABETES MELLITUS WITHOUT COMPLICATIONS Qualifiers: Diabetes mellitus type: type 2 Diabetes mellitus truck terminal manager insulin use: with truck terminal manager use Diabetes mellitus complication status: with hyperglycemia Qualified Code(s): E11.65 - Type 2 diabetes mellitus with hyperglycemia; Z79.4 - truck terminal manager (current) use of insulin (10) Atrial fibrillation Assessment/Plan: chronic continue metoprolol, eliquis Code(s): I48.91 - UNSPECIFIED ATRIAL FIBRILLATION Qualifiers: Atrial fibrillation type: chronic Qualified Code(s): I48.2 - Chronic atrial fibrillation (11) Hyperlipidemia Assessment/Plan: stable continue statin Code(s): E78.5 - HYPERLIPIDEMIA, UNSPECIFIED Qualifiers: Hyperlipidemia type: pure hypercholesterolemia Qualified Code(s): E78.00 - Pure hypercholesterolemia, unspecified; E78.0 - Pure hypercholesterolemia (12) HTN (hypertension) Assessment/Plan: controlled continue home regimen Code(s): I10 - ESSENTIAL (PRIMARY) HYPERTENSION Qualifiers: Hypertension type: essential hypertension Qualified Code(s): I10 - Essential (primary) hypertension (13) Hyponatremia Assessment/Plan: resolved suspect pseudo 2/2 hyperglycemia Code(s): E87.1 - HYPO-OSMOLALITY AND HYPONATREMIA (14) Hyperglycemia, drug-induced Assessment/Plan: 2/2 steroids improving plan as above Code(s): R73.9 - HYPERGLYCEMIA, UNSPECIFIED; T50.905A - ADVERSE EFFECT OF UNSP DRUG/MEDS/BIOL SUBST, INIT (15) Hyperkalemia Assessment/Plan: K5.6 [id number] lasix restarted case discussed with nephrology monitor [facility] Code(s): E87.5 - HYPERKALEMIA Dispo: Home w/ VNS when pulm cleared
--- NOTE | 2018-04-17 10:45 | PN ---
Progress Note (short form) - Note Progress Note: cc: cp no palps, dizziness, lightheadedness, dyspnea cp Current Medications Generic Name Dose Route Start Last Admin Trade Name Freq PRN Reason Stop Dose Admin Acetaminophen 650 mg 04/12/18 14:17 Tylenol - PO Q4H PRN FEVER Albuterol Sulfate 1 amp 04/12/18 14:21 04/16/18 19:50 Ventolin 0.083% Nebulizer Soln - NEB 1 amp Q4H PRN Administration SHORT OF BREATH/WHEEZING Apixaban 5 mg 04/12/18 22:00 04/17/18 09:54 Eliquis - PO 5 mg BID RYANN Administration Atorvastatin Calcium 40 mg 04/12/18 22:00 04/16/18 21:45 Lipitor - PO 40 mg HS RYANN Administration Docusate Sodium 100 mg 04/14/18 15:15 04/17/18 06:09 Colace - PO 100 mg TID RYANN Administration Furosemide 40 mg 04/17/18 10:00 04/17/18 09:53 Lasix - PO 40 mg DAILY RYANN Administration Levofloxacin 250 mg in 50 mls @ 50 mls/hr 04/13/18 10:00 04/17/18 09:54 Levaquin 250 Mg Premixed Ivpb - IVPB 50 mls/hr DAILY RYANN Administration Protocol Insulin Aspart 0 vial 04/14/18 12:14 04/17/18 06:13 Novolog Vial Sliding Scale - SQ 10 units ACHS RYANN Administration Protocol Insulin Detemir 20 units 04/16/18 11:00 04/17/18 06:14 Levemir Vial SQ 20 units BID@0700,2200 RYANN Administration Lactobacillus Acidophilus 1 tab 04/13/18 10:00 04/17/18 09:53 Bacid - PO 1 tab DAILY RYANN Administration Levothyroxine Sodium 25 mcg 04/16/18 07:00 04/17/18 06:09 Synthroid - PO 25 mcg AM RYANN Administration Methylprednisolone Sodium Succinate 40 mg 04/15/18 18:00 04/17/18 09:53 Solu-Medrol - IVPUSH 40 mg Q8H-IV RYANN Administration Metoprolol Succinate 25 mg 04/16/18 22:00 04/17/18 09:54 Toprol Xl - PO 25 mg BID RYANN Administration Pantoprazole Sodium 40 mg 04/13/18 10:00 04/17/18 09:54 Protonix - PO 40 mg DAILY RYANN Administration Polyethylene Glycol 17 gm 04/14/18 22:00 04/17/18 09:54 Miralax (For Daily Use) - PO Not Given BID RYANN Tiotropium [place] 2 puff 04/14/18 12:00 04/17/18 09:55 Spiriva Respimat IH 2 puff DAILY RYANN Administration Vital Signs: Vital Signs Period Temp Pulse Resp BP Sys/Gardner Pulse Ox Last 24 Hr 97.3 F-98.6 F 63-68 - 123-156/56-86 100 Constitutional: Yes: Well Nourished, No Distress, Obese Eyes: No: Sclera Icterus Respiratory: Yes: Regular, Wheezes (diffuse). No: Accessory Muscle Use, Rales Gastrointestinal: Yes: Normal Bowel Sounds. No: Distention, Hepatomegaly, Palpable Mass, Tenderness Cardiovascular: Yes: Regular Rate and Rhythm JVD: No Heart Sounds: Yes: S1, S2. No: Gallop, Irregular Murmur: No: Systolic Murmur, Diastolic Murmur Extremities: No: Cold, Cyanosis Edema: No Peripheral Pulses: 2+ Left Carotid, 2+ Right Carotid, 2+ Left Doralis Pedis, 2+ Right Dorsalis Pedis Integumentary: No: Jaundice Neurological: Yes: Alert, Oriented (x3) Psychiatric: No: Agitated CBC, BMP 04/17/18 05:30 04/17/18 05:30 ECG #1 04/12: NSR, RBBB, ? old IWMI, ? old AWMI--no change vs 11/12 #2 04/12: no change 04/13: no change CTA chest 04/14: mild dilated PA suggestive of pulm HTN. RLL opacity, patchy opacities elsewhere. no pulm edema or effusion LHC/PCI 10/2013: mid LAD and Diag YURIY PCI, residual prox LCX 90-95% calcific and only 30-50% dist LM disease MPI 10/2017 (gillian): no STs. anteroseptal and inferolateral infarcts. no ischemia. EF 38%. Echo 04/2017: mild dec lvef, apical hk. nl rv. mod mr, mild-mod tr, mild as, rvsp 40-50 Echo 10/2013 : mildly reduced LVF, apical severe HK, anterior mod HK, mild to mod MR, mild to mod TR, RVSP 50-60 tele: sr a/p: 82 yr old lady with known CAD/pci, chf, HTN, HPL, DM, pad, obesity, pafib (dx 05/2017 when admitted for copd) sent from pmd for low 02 sat a.e. copd, PNA: -per hospitalist chronic mixed diastolic/systolic CHF: -chronic, mild LV hypokinesis unchanged on recent echo 2017 -here with low o2 sat (85%) -bnp 4K, prior range 7K-18K. CT chest without congestion -here with presentation equivocal for acute chf 11/12 (in setting of copd exacerbation), treated with lasix 40 IV qd. -appears euvolemic today, defer diuretics CAD s/p PCI, atypical CP -pt s/p rota YURIY PCI of mid LAD and Diag 2013, residual prox LCX 90-95% calcific --medically managed -Has been stable, no anginal sxs. -atypical cp symptoms on prior admits, last 11/12 with enzymes neg, no acute isch ecg at that time -currently with non-exertional chest burning/squeezing sensation. trop 0.1-0.2- 0.1 is indeterminate range, flat trend, not c/w ACS -ECG's here unchanged vs prior, including repeat -recent nuclear stress test with no demonstrable ischemia (fixed defects, as above) -sx's may be due to ongoing airways restriction/copd exacerbation/PNA. -Cont home regimen: bb, statin, ac (no ASA per prior dr sorensen mgmt plan) JOLIE: -cr improving HTN: -bp mostly controlled -same meds pafib: -cont toprol 25 bid -cont eliquis 5 bid for AC PAD: -known occluded R SFA on 2015 periph angiogram, with dz on L below knee -routine outpt f/u
[2018-04-17] MEDS ORDERED: SODIUM POLYSTYRENE SULFONATE 15 GM/60 ML BOTTLE PO ONE (11:00)
--- NOTE | 2018-04-17 11:25 | PN ---
Progress Note, Physician History of Present Illness: PULMONARY ALERT,FEELING BETTER,LESS DYSPNEIC - Current Medication List Current Medications: Active Medications Acetaminophen (Tylenol -) 650 mg PO Q4H PRN PRN Reason: FEVER Albuterol Sulfate (Ventolin 0.083% Nebulizer Soln -) 1 amp NEB Q4H PRN PRN Reason: SHORT OF BREATH/WHEEZING Last Admin: 04/16/18 19:50 Dose: 1 amp Apixaban (Eliquis -) 5 mg PO BID [facility] Last Admin: 04/17/18 09:54 Dose: 5 mg Atorvastatin Calcium (Lipitor -) 40 mg PO HS [facility] Last Admin: 04/16/18 21:45 Dose: 40 mg Docusate Sodium (Colace -) 100 mg PO TID [facility] Last Admin: 04/17/18 06:09 Dose: 100 mg Furosemide (Lasix -) 40 mg PO DAILY [facility] Last Admin: 04/17/18 09:53 Dose: 40 mg Levofloxacin (Levaquin 250 Mg Premixed Ivpb -) 250 mg in 50 mls @ 50 mls/hr IVPB DAILY [facility]; Protocol Last Admin: 04/17/18 09:54 Dose: 50 mls/hr Insulin Aspart (Novolog Vial Sliding Scale -) 0 vial SQ ACHS [facility]; Protocol Last Admin: 04/17/18 06:13 Dose: 10 units Insulin Detemir (Levemir Vial) 20 units SQ BID@0700,2200 [facility] Last Admin: 04/17/18 06:14 Dose: 20 units Lactobacillus Acidophilus (Bacid -) 1 tab PO DAILY [facility] Last Admin: 04/17/18 09:53 Dose: 1 tab Levothyroxine Sodium (Synthroid -) 25 mcg PO AM [facility] Last Admin: 04/17/18 06:09 Dose: 25 mcg Methylprednisolone Sodium Succinate (Solu-Medrol -) 40 mg IVPUSH Q8H-IV [facility] Last Admin: 04/17/18 09:53 Dose: 40 mg Metoprolol Succinate (Toprol Xl -) 25 mg PO BID [facility] Last Admin: 04/17/18 09:54 Dose: 25 mg Pantoprazole Sodium (Protonix -) 40 mg PO DAILY [facility] Last Admin: 04/17/18 09:54 Dose: 40 mg Polyethylene Glycol (Miralax (For Daily Use) -) 17 gm PO BID [facility] Last Admin: 04/17/18 09:54 Dose: Not Given Tiotropium [place] (Spiriva Respimat) 2 puff IH DAILY [facility] Last Admin: 04/17/18 09:55 Dose: 2 puff - Objective Vital Signs: Vital Signs Temperature 97.3 F L 04/17/18 02:00 Pulse Rate 64 04/17/18 02:00 Respiratory Rate 20 04/17/18 02:00 Blood Pressure 133/63 04/17/18 02:00 O2 Sat by Pulse Oximetry (%) 100 04/16/18 20:42 Constitutional: Yes: Well Nourished, Calm Eyes: Yes: WNL HENT: Yes: WNL Neck: Yes: WNL Cardiovascular: Yes: Pulse Irregular, S1, S2 Respiratory: Yes: Rhonchi (BILATERAL WHEEZES AND RHONCHI), Wheezes Gastrointestinal: Yes: Normal Bowel Sounds, Soft Extremities: Yes: WNL Edema: No Labs: CBC, BMP 04/17/18 05:30 04/17/18 05:30 INR, PTT INR 0.98 (0.83-1.09) 04/12/18 11:08 Problem List - Problems (1) CHF (congestive heart failure) Code(s): I50.9 - HEART FAILURE, UNSPECIFIED Qualifiers: Heart failure type: combined systolic and diastolic Heart failure chronicity: chronic Qualified Code(s): I50.42 - Chronic combined systolic ( congestive) and diastolic (congestive) heart failure (2) COPD exacerbation Code(s): J44.1 - CHRONIC OBSTRUCTIVE PULMONARY DISEASE W (ACUTE) EXACERBATION (3) Hypothyroid Code(s): E03.9 - HYPOTHYROIDISM, UNSPECIFIED (4) Pneumonia Code(s): J18.9 - PNEUMONIA, UNSPECIFIED ORGANISM Qualifiers: Pneumonia type: due to unspecified organism Laterality: right Lung location: middle lobe of lung Qualified Code(s): J18.1 - Lobar pneumonia, unspecified organism (5) Acute on chronic respiratory failure with hypoxia and hypercapnia Code(s): J96.21 - ACUTE AND CHRONIC RESPIRATORY FAILURE WITH HYPOXIA; J96.22 - ACUTE AND CHRONIC RESPIRATORY FAILURE WITH HYPERCAPNIA (6) Atrial fibrillation Code(s): I48.91 - UNSPECIFIED ATRIAL FIBRILLATION Qualifiers: Atrial fibrillation type: paroxysmal Qualified Code(s): I48.0 - Paroxysmal atrial fibrillation (7) CAD (coronary artery disease) Code(s): I25.10 - ATHSCL HEART DISEASE OF [place] CORONARY ARTERY W/O ANG PCTRS Qualifiers: Coronary Disease-Associated Artery/Lesion type: [place] artery [place] vs. transplanted heart: [place] heart Associated angina: without angina Qualified Code(s): I25.10 - Atherosclerotic heart disease of [place] coronary artery without angina pectoris (8) HTN (hypertension) Code(s): I10 - ESSENTIAL (PRIMARY) HYPERTENSION Qualifiers: Hypertension type: essential hypertension Qualified Code(s): I10 - Essential (primary) hypertension (9) Hyperglycemia due to type 2 diabetes mellitus Code(s): E11.65 - TYPE 2 DIABETES MELLITUS WITH HYPERGLYCEMIA (10) Obesity (BMI 30-39.9) Code(s): E66.9 - OBESITY, UNSPECIFIED Assessment/Plan IMP ACUTE ON CHRONIC HYPOXEMIC/HYPERCAPNEIC RESPIRATORY FAILURE ASTHMA/COPD EXACERBATION CLINICALLY IMPROVING PNEUMONIA CHF JOLIE + TROPONIN ASHD S/P STENTS DM HTM HYPOTHYROID PLAN TAPER STEROIDS INHALED BRONCHODILATORS SUPPLEMENTAL O2 NIPPV IF PT DEVELOPES INCREASED RESPIRATORY DISTRESS MONITOR LYTES,RENAL FUNCTION PFTS OUTPATIENT DR CAAL Problem List - Problems (1) CHF (congestive heart failure) Code(s): I50.9 - HEART FAILURE, UNSPECIFIED Qualifiers: Heart failure type: combined systolic and diastolic Heart failure chronicity: chronic Qualified Code(s): I50.42 - Chronic combined systolic ( congestive) and diastolic (congestive) heart failure (2) COPD exacerbation Code(s): J44.1 - CHRONIC OBSTRUCTIVE PULMONARY DISEASE W (ACUTE) EXACERBATION (3) Hypothyroid Code(s): E03.9 - HYPOTHYROIDISM, UNSPECIFIED (4) Pneumonia Code(s): J18.9 - PNEUMONIA, UNSPECIFIED ORGANISM Qualifiers: Pneumonia type: due to unspecified organism Laterality: right Lung location: middle lobe of lung Qualified Code(s): J18.1 - Lobar pneumonia, unspecified organism (5) Acute on chronic respiratory failure with hypoxia and hypercapnia Code(s): J96.21 - ACUTE AND CHRONIC RESPIRATORY FAILURE WITH HYPOXIA; J96.22 - ACUTE AND CHRONIC RESPIRATORY FAILURE WITH HYPERCAPNIA (6) Atrial fibrillation Code(s): I48.91 - UNSPECIFIED ATRIAL FIBRILLATION Qualifiers: Atrial fibrillation type: paroxysmal Qualified Code(s): I48.0 - Paroxysmal atrial fibrillation (7) CAD (coronary artery disease) Code(s): I25.10 - ATHSCL HEART DISEASE OF [place] CORONARY ARTERY W/O ANG PCTRS Qualifiers: Coronary Disease-Associated Artery/Lesion type: [place] artery [place] vs. transplanted heart: [place] heart Associated angina: without angina Qualified Code(s): I25.10 - Atherosclerotic heart disease of [place] coronary artery without angina pectoris (8) HTN (hypertension) Code(s): I10 - ESSENTIAL (PRIMARY) HYPERTENSION Qualifiers: Hypertension type: essential hypertension Qualified Code(s): I10 - Essential (primary) hypertension (9) Hyperglycemia due to type 2 diabetes mellitus Code(s): E11.65 - TYPE 2 DIABETES MELLITUS WITH HYPERGLYCEMIA (10) Obesity (BMI 30-39.9) Code(s): E66.9 - OBESITY, UNSPECIFIED
[2018-04-17 11:54] LABS: ANISOCYTOSIS 1+; MACROCYTOSIS 0; OVALOCYTE 1+; PLATELET ESTIMATE NORMAL
--- NOTE | 2018-04-17 12:29 | PN ---
Progress Note (short form) - Note Progress Note: Renal follow up for JOLIE Pt seen and examined at the bedside feels better cough is improving no SOB/Orthopnnea making urine Vital Signs Temperature 97.3 F L 04/17/18 02:00 Pulse Rate 64 04/17/18 02:00 Respiratory Rate 20 04/17/18 02:00 Blood Pressure 133/63 04/17/18 02:00 O2 Sat by Pulse Oximetry (%) 100 04/16/18 20:42 Intake & Output 04/14/18 04/15/18 04/16/18 04/17/18 23:59 23:59 23:59 23:59 Intake Total 8263 201 0373 180 Balance 5617 443 7622 180 Weight 99.337 kg 102.24 kg 102.24 kg NAD awake and alert RRR CTA no LE edema CBC, BMP 04/17/18 05:30 04/17/18 05:30 Current Medications Acetaminophen (Tylenol -) 650 mg PO Q4H PRN PRN Reason: FEVER Albuterol Sulfate (Ventolin 0.083% Nebulizer Soln -) 1 amp NEB Q4H PRN PRN Reason: SHORT OF BREATH/WHEEZING Last Admin: 04/16/18 19:50 Dose: 1 amp Apixaban (Eliquis -) 5 mg PO BID [facility] Last Admin: 04/17/18 09:54 Dose: 5 mg Atorvastatin Calcium (Lipitor -) 40 mg PO HS [facility] Last Admin: 04/16/18 21:45 Dose: 40 mg Docusate Sodium (Colace -) 100 mg PO TID [facility] Last Admin: 04/17/18 06:09 Dose: 100 mg Furosemide (Lasix -) 40 mg PO DAILY [facility] Last Admin: 04/17/18 09:53 Dose: 40 mg Levofloxacin (Levaquin 250 Mg Premixed Ivpb -) 250 mg in 50 mls @ 50 mls/hr IVPB DAILY [facility]; Protocol Last Admin: 04/17/18 09:54 Dose: 50 mls/hr Insulin Aspart (Novolog Vial Sliding Scale -) 0 vial SQ ACHS [facility]; Protocol Last Admin: 04/17/18 11:30 Dose: 10 units Insulin Detemir (Levemir Vial) 20 units SQ BID@0700,2200 [facility] Last Admin: 04/17/18 06:14 Dose: 20 units Lactobacillus Acidophilus (Bacid -) 1 tab PO DAILY [facility] Last Admin: 04/17/18 09:53 Dose: 1 tab Levothyroxine Sodium (Synthroid -) 25 mcg PO AM [facility] Last Admin: 04/17/18 06:09 Dose: 25 mcg Methylprednisolone Sodium Succinate (Solu-Medrol -) 40 mg IVPUSH BID [facility] Metoprolol Succinate (Toprol Xl -) 25 mg PO BID [facility] Last Admin: 04/17/18 09:54 Dose: 25 mg Pantoprazole Sodium (Protonix -) 40 mg PO DAILY [facility] Last Admin: 04/17/18 09:54 Dose: 40 mg Polyethylene Glycol (Miralax (For Daily Use) -) 17 gm PO BID [facility] Last Admin: 04/17/18 09:54 Dose: Not Given Tiotropium [place] (Spiriva Respimat) 2 puff IH DAILY [facility] Last Admin: 04/17/18 09:55 Dose: 2 puff 83 year old woman with hx of Hypertension, COPD, CHF, CAD, HLD, DM, TIA who presented with SOB and cough and admitted for COPD exacerbation/hypercarbic respiratory failure +/- CHF exacerbation with JOLIE that developed during admission. #JOLIE likely due to intravascular volume depletion +/- contrast nephropathy ( contrast exposure on 04/12) #COPD exacerbation #Hx of CHF #CAD #Hypertension #Hyperkalemia Renal function improved s/p IVF, Cr still slighly higher then baseline but pt appears evolemic at the present time will restart oral Lasix today K note to be high, repeat in afternoon after diuretics urine studies consistent with preserved tubular function and did not show any significant proteinirua. BUN high likely due to steroids as opposed to renal insufficiency BP is at goal discharge planning as per primary Thank you Navi Agosto DO
[2018-04-17 17:11] LABS: ANION GAP 4 MMOL/L (8-16); BLOOD UREA NITROGEN 50 mg/dL (7-18); CALCIUM 8.8 mg/dL (8.5-10.1); CHLORIDE 97 mmol/L (98-107); CO2 38 mmol/L (21-32); CREATININE 1.2 mg/dL (0.55-1.3); GLUCOSE,RANDOM 250 mg/dL (74-106); POTASSIUM 5.2 mmol/L (3.5-5.1); SODIUM 140 mmol/L (136-145)
[2018-04-17] MEDS: ATORVASTATIN CA 40 MG TABLET (FP) PO SCH (21:46)
[2018-04-18] MEDS ORDERED: PT OWN MED DRAWER 7, Y5N ONE (00:30)
[2018-04-18] MEDS: LEVOTHYROXINE NA 25 MCG TABLET (FP) PO SCH (06:13)
[2018-04-18] MEDS: DOCUSATE SODIUM 100 MG CAPSULE (FP) PO SCH ×3 (06:14→22:08)
[2018-04-18] MEDS: INSULIN SLIDING SCALE (NOVOLOG) 1 VIAL SQ SCH ×4 (06:16→22:05)
[2018-04-18] MEDS: INSULIN (LEVEMIR) 100 UNITS/ML UNITS SQ SCH ×2 (06:16→22:05)
[2018-04-18] MEDS: ALBUTEROL SO4 0.083% IH SOL 2.5 MG/3 ML VIAL.NEB. NEB PRN (06:55)
[2018-04-18 08:04] LABS: BASO % 0.2 % (0-2.0); EOS % 0.2 % (0-4.5); HEMATOCRIT 36.1 % (32.4-45.2); HEMOGLOBIN 11.1 GM/dL (10.7-15.3); LYMPH % 7.1 % (8-40); MCH 20.3 pg (25.7-33.7); MCHC 30.7 g/dl (32.0-36.0); MEAN CELL VOLUME 66.1 fl (80-96); MEAN PLT VOLUME 8.4 fl (7.5-11.1); MONO % 2.8 % (3.8-10.2); NEUT % 89.7 % (42.8-82.8); PLATELET COUNT 255 K/MM3 (134-434); RBC 5.46 M/mm3 (3.60-5.2); RDW 15.5 % (11.6-15.6); WHITE BLOOD COUNT 8.5 K/mm3 (4.0-10.0)
[2018-04-18 08:49] LABS: ALBUMIN 2.7 g/dl (3.4-5.0); ALK PHOS 74 U/L (45-117); ANION GAP 3 MMOL/L (8-16); BILIRUBIN,TOTAL 0.9 mg/dL (0.2-1); BLOOD UREA NITROGEN 43 mg/dL (7-18); CALCIUM 8.7 mg/dL (8.5-10.1); CHLORIDE 95 mmol/L (98-107); CO2 40 mmol/L (21-32); GLUCOSE,RANDOM 152 mg/dL (74-106); MAGNESIUM 2.4 mg/dL (1.8-2.4); PHOSPHOROUS 3.6 mg/dL (2.5-4.9); POTASSIUM 4.9 mmol/L (3.5-5.1); SGOT/AST 21 U/L (15-37); SGPT/ALT 34 U/L (13-61); SODIUM 139 mmol/L (136-145); TOT PROT 6.1 g/dl (6.4-8.2)
--- NOTE | 2018-04-18 10:48 | PN ---
Progress Note (short form) - Note Progress Note: cc: cp no cp, dyspnea, palps, dizziness, lightheadedness Current Medications Acetaminophen (Tylenol -) 650 mg PO Q4H PRN PRN Reason: FEVER Albuterol Sulfate (Ventolin 0.083% Nebulizer Soln -) 1 amp NEB Q4H PRN PRN Reason: SHORT OF BREATH/WHEEZING Last Admin: 04/18/18 06:55 Dose: 1 amp Apixaban (Eliquis -) 5 mg PO BID [facility] Last Admin: 04/17/18 21:50 Dose: 5 mg Atorvastatin Calcium (Lipitor -) 40 mg PO HS [facility] Last Admin: 04/17/18 21:46 Dose: 40 mg Docusate Sodium (Colace -) 100 mg PO TID [facility] Last Admin: 04/18/18 06:14 Dose: 100 mg Furosemide (Lasix -) 40 mg PO DAILY [facility] Last Admin: 04/17/18 09:53 Dose: 40 mg Levofloxacin (Levaquin 250 Mg Premixed Ivpb -) 250 mg in 50 mls @ 50 mls/hr IVPB DAILY [facility]; Protocol Last Admin: 04/17/18 09:54 Dose: 50 mls/hr Insulin Aspart (Novolog Vial Sliding Scale -) 0 vial SQ ACHS [facility]; Protocol Last Admin: 04/18/18 06:16 Dose: 4 units Insulin Detemir (Levemir Vial) 30 units SQ BID@0700,2200 [facility] Last Admin: 04/18/18 06:16 Dose: 30 units Lactobacillus Acidophilus (Bacid -) 1 tab PO DAILY [facility] Last Admin: 04/17/18 09:53 Dose: 1 tab Levothyroxine Sodium (Synthroid -) 25 mcg PO AM [facility] Last Admin: 04/18/18 06:13 Dose: 25 mcg Methylprednisolone Sodium Succinate (Solu-Medrol -) 40 mg IVPUSH BID [facility] Last Admin: 04/17/18 21:45 Dose: 40 mg Metoprolol Succinate (Toprol Xl -) 25 mg PO BID [facility] Last Admin: 04/17/18 21:46 Dose: 25 mg Pantoprazole Sodium (Protonix -) 40 mg PO DAILY [facility] Last Admin: 04/17/18 09:54 Dose: 40 mg Polyethylene Glycol (Miralax (For Daily Use) -) 17 gm PO BID [facility] Last Admin: 04/17/18 21:50 Dose: 17 grams Tiotropium [place] (Spiriva Respimat) 2 puff IH DAILY [facility] Last Admin: 04/17/18 09:55 Dose: 2 puff Vital Signs: Vital Signs Period Temp Pulse Resp BP Sys/Gardner Pulse Ox Last 24 Hr 97.7 F-98.1 F 59-65 20-20 130-156/54-66 99 Constitutional: Yes: Well Nourished, No Distress, Obese Eyes: No: Sclera Icterus Respiratory: Yes: Regular, Wheezes (diffuse). No: Accessory Muscle Use, Rales Gastrointestinal: Yes: Normal Bowel Sounds. No: Distention, Hepatomegaly, Palpable Mass, Tenderness Cardiovascular: Yes: Regular Rate and Rhythm JVD: No Heart Sounds: Yes: S1, S2. No: Gallop, Irregular Murmur: No: Systolic Murmur, Diastolic Murmur Extremities: No: Cold, Cyanosis Edema: No Peripheral Pulses: 2+ Left Carotid, 2+ Right Carotid, 2+ Left Doralis Pedis, 2+ Right Dorsalis Pedis Integumentary: No: Jaundice Neurological: Yes: Alert, Oriented (x3) Psychiatric: No: Agitated ECG #1 04/12: NSR, RBBB, ? old IWMI, ? old AWMI--no change vs 11/12 #2 04/12: no change 04/13: no change CTA chest 04/14: mild dilated PA suggestive of pulm HTN. RLL opacity, patchy opacities elsewhere. no pulm edema or effusion LHC/PCI 10/2013: mid LAD and Diag YURIY PCI, residual prox LCX 90-95% calcific and only 30-50% dist LM disease MPI 10/2017 (gillian): no STs. anteroseptal and inferolateral infarcts. no ischemia. EF 38%. Echo 04/2017: mild dec lvef, apical hk. nl rv. mod mr, mild-mod tr, mild as, rvsp 40-50 Echo 10/2013 : mildly reduced LVF, apical severe HK, anterior mod HK, mild to mod MR, mild to mod TR, RVSP 50-60 tele: sinus a/p: 82 yr old lady with known CAD/pci, chf, HTN, HPL, DM, pad, obesity, pafib (dx 05/2017 when admitted for copd) sent from pmd for low 02 sat a.e. copd, PNA: -per hospitalist chronic mixed diastolic/systolic CHF: -chronic, mild LV hypokinesis unchanged on recent echo 2017 -here with low o2 sat (85%) -bnp 4K, prior range 7K-18K. CT chest without congestion -here with presentation equivocal for acute chf 11/12 (in setting of copd exacerbation), treated with lasix 40 IV qd. -appears euvolemic today, now on home lasix 40 mg PO daily CAD s/p PCI, atypical CP -pt s/p rota YURIY PCI of mid LAD and Diag 2013, residual prox LCX 90-95% calcific --medically managed -Has been stable, no anginal sxs. -atypical cp symptoms on prior admits, last 11/12 with enzymes neg, no acute isch ecg at that time -currently with non-exertional chest burning/squeezing sensation. trop 0.1-0.2- 0.1 is indeterminate range, flat trend, not c/w ACS -ECG's here unchanged vs prior, including repeat -recent nuclear stress test with no demonstrable ischemia (fixed defects, as above) -sx's may be due to ongoing airways restriction/copd exacerbation/PNA. -Cont home regimen: bb, statin, ac (no ASA per prior dr sorensen mgmt plan) JOLIE: -cr improving, may have been contrast induced nephropathy - renal following HTN: -bp mostly controlled -same meds pafib: -cont toprol 25 bid -cont eliquis 5 bid for AC PAD: -known occluded R SFA on 2014 periph angiogram, with dz on L below knee -routine outpt f/u
[2018-04-18] MEDS: FUROSEMIDE 40 MG TABLET (FP) PO SCH (10:52)
[2018-04-18] MEDS: LACTOBACILLUS ACIDOPHILUS 1 TABLET PO SCH (10:52)
[2018-04-18] MEDS: APIXABAN 5 MG TABLET PO SCH ×2 (10:52→21:53)
[2018-04-18] MEDS: POLYETHYLENE GLYCOL 3350 119 GM BTL PO SCH ×2 (10:53→22:08)
[2018-04-18] MEDS: PANTOPRAZOLE 40 MG TABLET (FP) PO SCH (10:53)
[2018-04-18] MEDS: methylPREDNISolone NA SUCC 40 MG/1 ML VIAL IVPUSH SCH ×2 (10:56→21:52)
[2018-04-18] MEDS: metoPROLOL SUCCINATE 25 MG TAB.SR.24H (FP) PO SCH ×2 (10:57→21:53)
[2018-04-18] MEDS: TIOTROPIUM BROMIDE 2.5 MCG (SPIRIVA) RESPIMAT INHALER IH SCH (10:57)
[2018-04-18 12:13] LABS: ANISOCYTOSIS 2+; MACROCYTOSIS 0; OVALOCYTE 1+; PLATELET ESTIMATE NORMAL; TEAR DROP CELLS 1+
--- NOTE | 2018-04-18 12:59 | PN ---
Progress Note (short form) - Note Progress Note: PULMONARY States breathing is slightly better. less cough and wheezing. +chest pain when coughing. Vital Signs Period Temp Pulse Resp BP Sys/Gardner Pulse Ox Last 24 Hr 97.7 F-98.1 F 59-65 20-20 130-156/54-66 99 Gen: NAD in chair Heart: RRR Lung: scattered rhonchi, wheezes Abd: soft, nontender Ext: trace edema CBC, BMP 04/18/18 06:30 04/18/18 06:30 Active Medications Acetaminophen (Tylenol -) 650 mg PO Q4H PRN PRN Reason: FEVER Albuterol Sulfate (Ventolin 0.083% Nebulizer Soln -) 1 amp NEB Q4H PRN PRN Reason: SHORT OF BREATH/WHEEZING Last Admin: 04/18/18 06:55 Dose: 1 amp Apixaban (Eliquis -) 5 mg PO BID [facility] Last Admin: 04/18/18 10:52 Dose: 5 mg Atorvastatin Calcium (Lipitor -) 40 mg PO HS [facility] Last Admin: 04/17/18 21:46 Dose: 40 mg Docusate Sodium (Colace -) 100 mg PO TID [facility] Last Admin: 04/18/18 06:14 Dose: 100 mg Furosemide (Lasix -) 40 mg PO DAILY [facility] Last Admin: 04/18/18 10:52 Dose: 40 mg Levofloxacin (Levaquin 250 Mg Premixed Ivpb -) 250 mg in 50 mls @ 50 mls/hr IVPB DAILY [facility]; Protocol Last Admin: 04/18/18 12:33 Dose: 50 mls/hr Insulin Aspart (Novolog Vial Sliding Scale -) 0 vial SQ ACHS [facility]; Protocol Last Admin: 04/18/18 12:16 Dose: 4 units Insulin Detemir (Levemir Vial) 30 units SQ BID@0700,2200 [facility] Last Admin: 04/18/18 06:16 Dose: 30 units Lactobacillus Acidophilus (Bacid -) 1 tab PO DAILY [facility] Last Admin: 04/18/18 10:52 Dose: 1 tab Levothyroxine Sodium (Synthroid -) 25 mcg PO AM [facility] Last Admin: 04/18/18 06:13 Dose: 25 mcg Methylprednisolone Sodium Succinate (Solu-Medrol -) 40 mg IVPUSH BID [facility] Last Admin: 04/18/18 10:56 Dose: 40 mg Metoprolol Succinate (Toprol Xl -) 25 mg PO BID [facility] Last Admin: 04/18/18 10:57 Dose: 25 mg Pantoprazole Sodium (Protonix -) 40 mg PO DAILY [facility] Last Admin: 04/18/18 10:53 Dose: 40 mg Polyethylene Glycol (Miralax (For Daily Use) -) 17 gm PO BID [facility] Last Admin: 04/18/18 10:53 Dose: Not Given Tiotropium [place] (Spiriva Respimat) 2 puff IH DAILY [facility] Last Admin: 04/18/18 10:57 Dose: 2 puff A/P Acute on Chronic Hypoxic and Hypercapneic Respiratory Failure Acute COPD Exacerbation Pneumonia LV Diastolic/Systolic Dysfunction +Troponins likely Demand Ischemia Paroxysmal Atrial Fibrillation Acute Kidney Injury HTN DM Hypothyroidism - continue medrol at current dose - can likely taper in AM if continues to improve - inhaled bronchodilators as needed - continue antibiotics - rate control - continue anticoagulation - will need outpt f/u of chest imaging to ensure resolution
--- NOTE | 2018-04-18 13:51 | PN ---
Progress Note (short form) - Note Progress Note: covering dr clarke Problems HLD, DM, TIA SOB and cough/COPD exacerbation/hypercarbic respiratory failure +/- CHF exacerbation JOLIE during admission. #JOLIE likely due to intravascular volume depletion +/- contrast nephropathy ( contrast exposure on 04/12) #COPD exacerbation #Hx of CHF #CAD #Hypertension #Hyperkalemia Current Medications Acetaminophen (Tylenol -) 650 mg PO Q4H PRN PRN Reason: FEVER Albuterol Sulfate (Ventolin 0.083% Nebulizer Soln -) 1 amp NEB Q4H PRN PRN Reason: SHORT OF BREATH/WHEEZING Last Admin: 04/18/18 06:55 Dose: 1 amp Apixaban (Eliquis -) 5 mg PO BID [facility] Last Admin: 04/18/18 10:52 Dose: 5 mg Atorvastatin [place]cium (Lipitor -) 40 mg PO HS [facility] Last Admin: 04/17/18 21:46 Dose: 40 mg Docusate Sodium (Colace -) 100 mg PO TID [facility] Last Admin: 04/18/18 13:34 Dose: Not Given Furosemide (Lasix -) 40 mg PO DAILY [facility] Last Admin: 04/18/18 10:52 Dose: 40 mg Levofloxacin (Levaquin 250 Mg Premixed Ivpb -) 250 mg in 50 mls @ 50 mls/hr IVPB DAILY [facility]; Protocol Last Admin: 04/18/18 12:33 Dose: 50 mls/hr Insulin Aspart (Novolog Vial Sliding Scale -) 0 vial SQ ACHS [facility]; Protocol Last Admin: 04/18/18 12:16 Dose: 4 units Insulin Detemir (Levemir Vial) 30 units SQ BID@0700,2200 [facility] Last Admin: 04/18/18 06:16 Dose: 30 units Lactobacillus Acidophilus (Bacid -) 1 tab PO DAILY [facility] Last Admin: 04/18/18 10:52 Dose: 1 tab Levothyroxine Sodium (Synthroid -) 25 mcg PO AM [facility] Last Admin: 04/18/18 06:13 Dose: 25 mcg Methylprednisolone Sodium Succinate (Solu-Medrol -) 40 mg IVPUSH BID [facility] Last Admin: 04/18/18 10:56 Dose: 40 mg Metoprolol Succinate (Toprol Xl -) 25 mg PO BID [facility] Last Admin: 04/18/18 10:57 Dose: 25 mg Pantoprazole Sodium (Protonix -) 40 mg PO DAILY [facility] Last Admin: 04/18/18 10:53 Dose: 40 mg Polyethylene Glycol (Miralax (For Daily Use) -) 17 gm PO BID [facility] Last Admin: 04/18/18 10:53 Dose: Not Given Tiotropium [place] (Spiriva Respimat) 2 puff IH DAILY [facility] Last Admin: 04/18/18 10:57 Dose: 2 puff Last Vital Signs Temp Pulse Resp BP Pulse Ox 98.1 F 63 20 156/66 99 04/18/18 09:00 04/18/18 09:00 04/18/18 09:00 04/18/18 09:00 04/17/18 21:00 alert in nad Lungs some wheezing Heart reg Abd soft ext no edema Renal function improved s/p IVF, Cr still slighly higher then baseline but pt appears evolemic at the present time will restart oral Lasix today K note to be high, repeat in afternoon after diuretics urine studies consistent with preserved tubular function and did not show any significant proteinirua. BUN high likely due to steroids as opposed to renal insufficiency BP is at goal discharge planning as per primary
--- NOTE | 2018-04-18 16:42 | PN ---
Physical Exam: SUBJECTIVE: Patient seen and examined. She reports SOB is improving. OBJECTIVE: Vital Signs Period Temp Pulse Resp BP Sys/Gardner Pulse Ox Last 24 Hr 97.7 F-98.2 F 59-65 18-20 133-156/55-79 99-100 GENERAL: The patient is awake, alert, and fully oriented, in no acute distress. LUNGS: Breath sounds equal, bilateral wheezes, no accessory muscle use. HEART: Regular rate and rhythm, S1, S2 without murmur, rub or gallop. ABDOMEN: Obese, soft, nontender, nondistended, normoactive bowel sounds, no guarding, no rebound, no hepatosplenomegaly, no masses. EXTREMITIES: 2+ pulses, warm, well-perfused, trace edema. Laboratory Results - last 24 hr 04/17/18 04/17/18 04/17/18 16:22 16:25 20:52 WBC RBC Hgb Hct MCV MCH MCHC RDW Plt Count MPV Absolute Neuts (auto) Neutrophils % Neutrophils % (Manual) Band Neutrophils % Lymphocytes % Lymphocytes % (Manual) Monocytes % Monocytes % (Manual) Eosinophils % Eosinophils % (Manual) Basophils % Basophils % (Manual) Myelocytes % (Man) Promyelocytes % (Man) Blast Cells % (Manual) Nucleated RBC % Metamyelocytes Hypochromia Platelet Estimate Polychromasia Poikilocytosis Basophilic Stippling Anisocytosis Microcytosis Macrocytosis Spherocytes Tear Drop Cells Ovalocytes Schistocytes Sodium 140 Potassium 5.2 H Chloride 97 L Carbon Dioxide 38 H Anion Gap 4 L BUN 50 H Creatinine 1.2 Creat Clearance w eGFR 43.01 POC Glucometer 260 245 Random Glucose 250 H Calcium 8.8 Phosphorus Magnesium Total Bilirubin AST ALT Alkaline Phosphatase Total Protein Albumin 04/18/18 04/18/18 04/18/18 06:15 06:30 06:30 WBC 8.5 RBC 5.46 H Hgb 11.1 Hct 36.1 MCV 66.1 L MCH 20.3 L MCHC 30.7 L RDW 15.5 Plt Count 255 MPV 8.4 Absolute Neuts (auto) 7.6 Neutrophils % 89.7 H Neutrophils % (Manual) 72.0 Band Neutrophils % 6.0 Lymphocytes % 7.1 L D Lymphocytes % (Manual) 10.0 D Monocytes % 2.8 L Monocytes % (Manual) 4 D Eosinophils % 0.2 D Eosinophils % (Manual) 0.0 Basophils % 0.2 Basophils % (Manual) 0.0 Myelocytes % (Man) 1 D Promyelocytes % (Man) 0 Blast Cells % (Manual) 0 Nucleated RBC % 0 Metamyelocytes 0 Hypochromia 0 Platelet Estimate Normal Polychromasia 0 Poikilocytosis 0 Basophilic Stippling 2+ Anisocytosis 2+ Microcytosis 2+ Macrocytosis 0 Spherocytes 2+ Tear Drop Cells 1+ Ovalocytes 1+ Schistocytes 1+ Sodium 139 Potassium 4.9 Chloride 95 L Carbon Dioxide 40 H Anion Gap 3 L BUN 43 H Creatinine 1.0 Creat Clearance w eGFR 53.08 POC Glucometer 179 Random Glucose 152 H Calcium 8.7 Phosphorus 3.6 Magnesium 2.4 Total Bilirubin 0.9 AST 21 ALT 34 Alkaline Phosphatase 74 Total Protein 6.1 L Albumin 2.7 L 04/18/18 12:15 WBC RBC Hgb Hct MCV MCH MCHC RDW Plt Count MPV Absolute Neuts (auto) Neutrophils % Neutrophils % (Manual) Band Neutrophils % Lymphocytes % Lymphocytes % (Manual) Monocytes % Monocytes % (Manual) Eosinophils % Eosinophils % (Manual) Basophils % Basophils % (Manual) Myelocytes % (Man) Promyelocytes % (Man) Blast Cells % (Manual) Nucleated RBC % Metamyelocytes Hypochromia Platelet Estimate Polychromasia Poikilocytosis Basophilic Stippling Anisocytosis Microcytosis Macrocytosis Spherocytes Tear Drop Cells Ovalocytes Schistocytes Sodium Potassium Chloride Carbon Dioxide Anion Gap BUN Creatinine Creat Clearance w eGFR POC Glucometer 152 Random Glucose Calcium Phosphorus Magnesium Total Bilirubin AST ALT Alkaline Phosphatase Total Protein Albumin Active Medications Generic Name Dose Route Start Last Admin Trade Name Javedq PRN Reason Stop Dose Admin Acetaminophen 650 mg 04/12/18 14:17 Tylenol - PO Q4H PRN FEVER Albuterol Sulfate 1 amp 04/12/18 14:21 04/18/18 06:55 Ventolin 0.083% Nebulizer Soln - NEB 1 amp Q4H PRN Administration SHORT OF BREATH/WHEEZING Apixaban 5 mg 04/12/18 22:00 04/18/18 10:52 Eliquis - PO 5 mg BID RYANN Administration Atorvastatin Calcium 40 mg 04/12/18 22:00 04/17/18 21:46 Lipitor - PO 40 mg HS RYANN Administration Docusate Sodium 100 mg 04/14/18 15:15 04/18/18 13:34 Colace - PO Not Given TID RYANN Furosemide 40 mg 04/17/18 10:00 04/18/18 10:52 Lasix - PO 40 mg DAILY RYANN Administration Levofloxacin 250 mg in 50 mls @ 50 mls/hr 04/13/18 10:00 04/18/18 12:33 Levaquin 250 Mg Premixed Ivpb - IVPB 50 mls/hr DAILY RYANN Administration Protocol Insulin Aspart 0 vial 04/14/18 12:14 04/18/18 12:16 Novolog Vial Sliding Scale - SQ 4 units ACHS RYANN Administration Protocol Insulin Detemir 30 units 04/17/18 16:37 04/18/18 06:16 Levemir Vial SQ 30 units BID@0700,2200 RYANN Administration Lactobacillus Acidophilus 1 tab 04/13/18 10:00 04/18/18 10:52 Bacid - PO 1 tab DAILY RYANN Administration Levothyroxine Sodium 25 mcg 04/16/18 07:00 04/18/18 06:13 Synthroid - PO 25 mcg AM RYANN Administration Methylprednisolone Sodium Succinate 40 mg 04/17/18 22:00 04/18/18 10:56 Solu-Medrol - IVPUSH 40 mg BID RYANN Administration Metoprolol Succinate 25 mg 04/16/18 22:00 04/18/18 10:57 Toprol Xl - PO 25 mg BID RYANN Administration Pantoprazole Sodium 40 mg 04/13/18 10:00 04/18/18 10:53 Protonix - PO 40 mg DAILY RYANN Administration Polyethylene Glycol 17 gm 04/14/18 22:00 04/18/18 10:53 Miralax (For Daily Use) - PO Not Given BID [facility] Tiotropium [place] 2 puff 04/14/18 12:00 04/18/18 10:57 Spiriva Respimat IH 2 puff DAILY RYANN Administration ASSESSMENT/PLAN: 1. Acute on chronic hypoxic and hypercapnic respiratory failure secondary to acute exacerbation of COPD, pneumonia - Oxygen to keep saturation >90% - Continue Levaquin (day 7) - Solumedrol being tapered - Continue Spiriva, albuterol as needed 2. Acute kidney injury - Resolved 3. Chest pain - Resolved 4. Chronic systolic and diastolic heart failure - Stable - Continue Toprol XL, Lasix 5. Hypothyroidism - Continue Synthroid 6. CAD - Stable - Continue Toprol XL, Lipitor 7. Type 2 DM, uncontrolled - Continue Levemir, Novolog sliding scale 8. Paroxysmal atrial fibrillation - Currently in sinus rhythm - Continue Toprol XL, Eliquis 9. Hyperlipidemia - Continue Lipitor 10. HTN - Continue Toprol XL, Lasix 11. Hyponatremia - Possible pseudo-hyponatremia secondary to hyperglycemia - Resolved 12. Hyperkalemia - Improved Visit type - Emergency Visit Emergency Visit: Yes ED Registration Date: 04/12/18 Care time: The patient presented to the Emergency Department on the above date and was hospitalized for further evaluation of their emergent condition. - New Patient This patient is new to me today: Yes Date on this admission: 04/18/18 - Critical Care Critical Care patient: No - Discharge Referral Referred to [facility] Med P.C.: No
[2018-04-18] MEDS: ATORVASTATIN CA 40 MG TABLET (FP) PO SCH (21:53)
[2018-04-19] MEDS: INSULIN (LEVEMIR) 100 UNITS/ML UNITS SQ SCH (06:20)
[2018-04-19] MEDS: DOCUSATE SODIUM 100 MG CAPSULE (FP) PO SCH ×3 (06:20→23:16)
[2018-04-19] MEDS: INSULIN SLIDING SCALE (NOVOLOG) 1 VIAL SQ SCH ×4 (06:21→23:15)
[2018-04-19] MEDS: LEVOTHYROXINE NA 25 MCG TABLET (FP) PO SCH (06:22)
[2018-04-19 08:18] LABS: ANION GAP 5 MMOL/L (8-16); BLOOD UREA NITROGEN 34 mg/dL (7-18); CALCIUM 8.3 mg/dL (8.5-10.1); CHLORIDE 92 mmol/L (98-107); CO2 43 mmol/L (21-32); CREATININE 0.9 mg/dL (0.55-1.3); GLUCOSE,RANDOM 193 mg/dL (74-106); POTASSIUM 4.7 mmol/L (3.5-5.1); SODIUM 140 mmol/L (136-145)
--- NOTE | 2018-04-19 10:08 | PN ---
Progress Note (short form) - Note Progress Note: cc: cp no cp, dyspnea, palps, dizziness, lightheadedness Current Medications Acetaminophen (Tylenol -) 650 mg PO Q4H PRN PRN Reason: FEVER Albuterol Sulfate (Ventolin 0.083% Nebulizer Soln -) 1 amp NEB Q4H PRN PRN Reason: SHORT OF BREATH/WHEEZING Last Admin: 04/18/18 06:55 Dose: 1 amp Apixaban (Eliquis -) 5 mg PO BID [facility] Last Admin: 04/18/18 21:53 Dose: 5 mg Atorvastatin Calcium (Lipitor -) 40 mg PO HS [facility] Last Admin: 04/18/18 21:53 Dose: 40 mg Docusate Sodium (Colace -) 100 mg PO TID [facility] Last Admin: 04/19/18 06:20 Dose: 100 mg Furosemide (Lasix -) 40 mg PO DAILY [facility] Last Admin: 04/18/18 10:52 Dose: 40 mg Levofloxacin (Levaquin 250 Mg Premixed Ivpb -) 250 mg in 50 mls @ 50 mls/hr IVPB DAILY [facility]; Protocol Last Admin: 04/18/18 12:33 Dose: 50 mls/hr Insulin Aspart (Novolog Vial Sliding Scale -) 0 vial SQ ACHS [facility]; Protocol Last Admin: 04/19/18 06:21 Dose: 6 units Insulin Detemir (Levemir Vial) 30 units SQ BID@0700,2200 R[facility]ANN Last Admin: 04/19/18 06:20 Dose: 30 units Lactobacillus Acidophilus (Bacid -) 1 tab PO DAILY [facility] Last Admin: 04/18/18 10:52 Dose: 1 tab Levothyroxine Sodium (Synthroid -) 25 mcg PO AM [facility] Last Admin: 04/19/18 06:22 Dose: 25 mcg Methylprednisolone Sodium Succinate (Solu-Medrol -) 40 mg IVPUSH BID [facility] Last Admin: 04/18/18 21:52 Dose: 40 mg Metoprolol Succinate (Toprol Xl -) 25 mg PO BID [facility] Last Admin: 04/18/18 21:53 Dose: 25 mg Pantoprazole Sodium (Protonix -) 40 mg PO DAILY [facility] Last Admin: 04/18/18 10:53 Dose: 40 mg Polyethylene Glycol (Miralax (For Daily Use) -) 17 gm PO BID [facility] Last Admin: 04/18/18 22:08 Dose: Not Given Tiotropium [place] (Spiriva Respimat) 2 puff IH DAILY [facility]YANN Last Admin: 04/18/18 10:57 Dose: 2 puff Vital Signs: Vital Signs Period Temp Pulse Resp BP Sys/Gardner Pulse Ox Last 24 Hr 98.0 F-98.2 F 62-65 18-19 145-149/58-79 100 Constitutional: Yes: Well Nourished, No Distress, Obese Eyes: No: Sclera Icterus Respiratory: Yes: Regular, Wheezes (diffuse). No: Accessory Muscle Use, Rales Gastrointestinal: Yes: Normal Bowel Sounds. No: Distention, Hepatomegaly, Palpable Mass, Tenderness Cardiovascular: Yes: Regular Rate and Rhythm JVD: No Heart Sounds: Yes: S1, S2. No: Gallop, Irregular Murmur: No: Systolic Murmur, Diastolic Murmur Extremities: No: Cold, Cyanosis Edema: No Peripheral Pulses: 2+ Left Carotid, 2+ Right Carotid, 2+ Left Doralis Pedis, 2+ Right Dorsalis Pedis Integumentary: No: Jaundice Neurological: Yes: Alert, Oriented (x3) Psychiatric: No: Agitated ECG #1 04/12: NSR, RBBB, ? old IWMI, ? old AWMI--no change vs 11/12 #2 04/12: no change 04/13: no change CTA chest 04/14: mild dilated PA suggestive of pulm HTN. RLL opacity, patchy opacities elsewhere. no pulm edema or effusion LHC/PCI 10/2013: mid LAD and Diag YURIY PCI, residual prox LCX 90-95% calcific and only 30-50% dist LM disease MPI 10/2017 (gillian): no STs. anteroseptal and inferolateral infarcts. no ischemia. EF 38%. Echo 04/2017: mild dec lvef, apical hk. nl rv. mod mr, mild-mod tr, mild as, rvsp 40-50 Echo 10/2013 : mildly reduced LVF, apical severe HK, anterior mod HK, mild to mod MR, mild to mod TR, RVSP 50-60 tele: sinus bradycardia a/p: 82 yr old lady with known CAD/pci, chf, HTN, HPL, DM, pad, obesity, pafib (dx 05/2017 when admitted for copd) sent from pmd for low 02 sat a.e. copd, PNA: -per hospitalist chronic mixed diastolic/systolic CHF: -chronic, mild LV hypokinesis unchanged on recent echo 2017 -here with low o2 sat (85%) -bnp 4K, prior range 7K-18K. CT chest without congestion -here with presentation equivocal for acute chf 11/12 (in setting of copd exacerbation), treated with lasix 40 IV qd. -appears euvolemic on home lasix 40 mg PO daily CAD s/p PCI, atypical CP -pt s/p rota YURIY PCI of mid LAD and Diag 2013, residual prox LCX 90-95% calcific --medically managed -Has been stable, no anginal sxs. -atypical cp symptoms on prior admits, last 11/12 with enzymes neg, no acute isch ecg at that time -currently with non-exertional chest burning/squeezing sensation. trop 0.1-0.2- 0.1 is indeterminate range, flat trend, not c/w ACS -ECG's here unchanged vs prior, including repeat -recent nuclear stress test with no demonstrable ischemia (fixed defects, as above) -sx's may be due to ongoing airways restriction/copd exacerbation/PNA. -Cont home regimen: bb, statin, ac (no ASA per prior dr sorensen mgmt plan) JOLIE: -cr improving, may have been contrast induced nephropathy - renal following HTN: -bp mostly controlled -same meds pafib: -reduce toprol to 12.5 mg BID for bradycardia -cont eliquis 5 bid for AC PAD: -known occluded R SFA on 2015 periph angiogram, with dz on L below knee -routine outpt f/u
[2018-04-19] MEDS: FUROSEMIDE 40 MG TABLET (FP) PO SCH (11:08)
[2018-04-19] MEDS: PANTOPRAZOLE 40 MG TABLET (FP) PO SCH (11:08)
[2018-04-19] MEDS: APIXABAN 5 MG TABLET PO SCH ×2 (11:08→23:17)
[2018-04-19] MEDS: POLYETHYLENE GLYCOL 3350 119 GM BTL PO SCH ×2 (11:08→23:17)
[2018-04-19] MEDS: LACTOBACILLUS ACIDOPHILUS 1 TABLET PO SCH (11:08)
[2018-04-19] MEDS: metoPROLOL SUCCINATE 25 MG TAB.SR.24H (FP) PO SCH ×2 (11:09→23:18)
[2018-04-19] MEDS: methylPREDNISolone NA SUCC 40 MG/1 ML VIAL IVPUSH SCH (11:09)
[2018-04-19] MEDS: TIOTROPIUM BROMIDE 2.5 MCG (SPIRIVA) RESPIMAT INHALER IH SCH (11:09)
--- NOTE | 2018-04-19 11:59 | PN ---
Progress Note (short form) - Note Progress Note: PULMONARY States breathing continues to improve. Less cough and wheezing. Vital Signs Period Temp Pulse Resp BP Sys/Gardner Pulse Ox Last 24 Hr 97.8 F-98.2 F 50-65 18-19 134-149/52-79 100 Gen: NAD at rest Heart: RRR Lung: scattered rhonchi, wheezes Abd: soft, nontender Ext: trace edema CBC, BMP 04/18/18 06:30 04/19/18 06:30 Active Medications Acetaminophen (Tylenol -) 650 mg PO Q4H PRN PRN Reason: FEVER Albuterol Sulfate (Ventolin 0.083% Nebulizer Soln -) 1 amp NEB Q4H PRN PRN Reason: SHORT OF BREATH/WHEEZING Last Admin: 04/18/18 06:55 Dose: 1 amp Apixaban (Eliquis -) 5 mg PO BID [facility] Last Admin: 04/19/18 11:08 Dose: 5 mg Atorvastatin Calcium (Lipitor -) 40 mg PO HS [facility] Last Admin: 04/18/18 21:53 Dose: 40 mg Docusate Sodium (Colace -) 100 mg PO TID RYANN Last Admin: 04/19/18 06:20 Dose: 100 mg Furosemide (Lasix -) 40 mg PO DAILY [facility] Last Admin: 04/19/18 11:08 Dose: 40 mg Levofloxacin (Levaquin 250 Mg Premixed Ivpb -) 250 mg in 50 mls @ 50 mls/hr IVPB DAILY [facility]; Protocol Last Admin: 04/19/18 11:08 Dose: 50 mls/hr Insulin Aspart (Novolog Vial Sliding Scale -) 0 vial SQ ACHS RYANN; Protocol Last Admin: 04/19/18 06:21 Dose: 6 units Insulin Detemir (Levemir Vial) 30 units SQ BID@0700,2200 [facility] Last Admin: 04/19/18 06:20 Dose: 30 units Lactobacillus Acidophilus (Bacid -) 1 tab PO DAILY [facility] Last Admin: 04/19/18 11:08 Dose: 1 tab Levothyroxine Sodium (Synthroid -) 25 mcg PO AM [facility] Last Admin: 04/19/18 06:22 Dose: 25 mcg Methylprednisolone Sodium Succinate (Solu-Medrol -) 40 mg IVPUSH BID [facility] Last Admin: 04/19/18 11:09 Dose: 40 mg Metoprolol Succinate (Toprol Xl -) 12.5 mg PO BID [facility] Pantoprazole Sodium (Protonix -) 40 mg PO DAILY [facility] Last Admin: 04/19/18 11:08 Dose: 40 mg Polyethylene Glycol (Miralax (For Daily Use) -) 17 gm PO BID [facility] Last Admin: 04/19/18 11:08 Dose: Not Given Tiotropium [place] (Spiriva Respimat) 2 puff IH DAILY [facility] Last Admin: 04/19/18 11:09 Dose: 2 puff A/P Acute on Chronic Hypoxic and Hypercapneic Respiratory Failure Acute COPD Exacerbation Pneumonia LV Diastolic/Systolic Dysfunction +Troponins likely Demand Ischemia Paroxysmal Atrial Fibrillation Acute Kidney Injury HTN DM Hypothyroidism - will change steroids to PO prednisone and can taper as outpt - inhaled bronchodilators as needed - continue antibiotics - rate control - continue anticoagulation - will need outpt f/u of chest imaging to ensure resolution
--- NOTE | 2018-04-19 16:52 | PN ---
Physical Exam: SUBJECTIVE: Patient seen and examined. She has no complaints. OBJECTIVE: Vital Signs Period Temp Pulse Resp BP Sys/Gardner Pulse Ox Last 24 Hr 97.8 F-98.1 F 50-64 18-19 134-149/52-63 100-100 GENERAL: The patient is awake, alert, and fully oriented, in no acute distress. LUNGS: Breath sounds equal, scattered wheezes, no accessory muscle use. HEART: Regular rate and rhythm, S1, S2 without murmur, rub or gallop. ABDOMEN: Obese, soft, nontender, nondistended, normoactive bowel sounds, no guarding, no rebound, no hepatosplenomegaly, no masses. EXTREMITIES: 2+ pulses, warm, well-perfused, no edema. Laboratory Results - last 24 hr 04/18/18 04/18/18 04/19/18 17:12 21:58 05:51 Sodium Potassium Chloride Carbon Dioxide Anion Gap BUN Creatinine Creat Clearance w eGFR POC Glucometer 264 343 234 Random Glucose Calcium 04/19/18 04/19/18 06:30 12:24 Sodium 140 Potassium 4.7 Chloride 92 L Carbon Dioxide 43 H Anion Gap 5 L BUN 34 H Creatinine 0.9 Creat Clearance w eGFR 59.94 POC Glucometer 114 Random Glucose 193 H Calcium 8.3 L Active Medications Generic Name Dose Route Start Last Admin Trade Name Freq PRN Reason Stop Dose Admin Acetaminophen 650 mg 04/12/18 14:17 Tylenol - PO Q4H PRN FEVER Albuterol Sulfate 1 amp 04/12/18 14:21 04/18/18 06:55 Ventolin 0.083% Nebulizer Soln - NEB 1 amp Q4H PRN Administration SHORT OF BREATH/WHEEZING Apixaban 5 mg 04/12/18 22:00 04/19/18 11:08 Eliquis - PO 5 mg BID RYANN Administration Atorvastatin Calcium 40 mg 04/12/18 22:00 04/18/18 21:53 Lipitor - PO 40 mg HS RYANN Administration Docusate Sodium 100 mg 04/14/18 15:15 04/19/18 15:35 Colace - PO Not Given TID RYANN Furosemide 40 mg 04/17/18 10:00 04/19/18 11:08 Lasix - PO 40 mg DAILY RYANN Administration Levofloxacin 250 mg in 50 mls @ 50 mls/hr 04/13/18 10:00 04/19/18 11:08 Levaquin 250 Mg Premixed Ivpb - IVPB 50 mls/hr DAILY RYANN Administration Protocol Insulin Aspart 0 vial 04/14/18 12:14 04/19/18 16:43 Novolog Vial Sliding Scale - SQ 6 units ACHS RYANN Administration Protocol Insulin Detemir 30 units 04/17/18 16:37 04/19/18 06:20 Levemir Vial SQ 30 units BID@0700,2200 RYANN Administration Lactobacillus Acidophilus 1 tab 04/13/18 10:00 04/19/18 11:08 Bacid - PO 1 tab DAILY RYANN Administration Levothyroxine Sodium 25 mcg 04/16/18 07:00 04/19/18 06:22 Synthroid - PO 25 mcg AM RYANN Administration Metoprolol Succinate 12.5 mg 04/19/18 11:33 Toprol Xl - PO BID RYANN Pantoprazole Sodium 40 mg 04/13/18 10:00 04/19/18 11:08 Protonix - PO 40 mg DAILY RYANN Administration Polyethylene Glycol 17 gm 04/14/18 22:00 04/19/18 11:08 Miralax (For Daily Use) - PO Not Given BID RYANN Prednisone 40 mg 04/20/18 10:00 Deltasone - PO DAILY RYANN Tiotropium [place] 2 puff 04/14/18 12:00 04/19/18 11:09 Spiriva Respimat IH 2 puff DAILY RYANN Administration ASSESSMENT/PLAN: 1. Acute on chronic hypoxic and hypercapnic respiratory failure secondary to acute exacerbation of COPD, pneumonia - Oxygen to keep saturation >90% - Continue Levaquin (day 8) - Change to PO - Solumedrol changed to Prednisone - Continue Spiriva, albuterol as needed 2. Acute kidney injury - Resolved 3. Chest pain - Resolved 4. Chronic systolic and diastolic heart failure - Stable - Continue Toprol XL, Lasix 5. Hypothyroidism - Continue Synthroid 6. CAD - Stable - Continue Toprol XL, Lipitor 7. Type 2 DM, uncontrolled - Continue Levemir, Novolog sliding scale 8. Paroxysmal atrial fibrillation - Currently in sinus rhythm - Continue Toprol XL, Eliquis 9. Hyperlipidemia - Continue Lipitor 10. HTN - Continue Toprol XL, Lasix 11. Hyponatremia - Possible pseudo-hyponatremia secondary to hyperglycemia - Resolved 12. Hyperkalemia - Improved 13. Peripheral artery disease 14. Disposition - Possible discharge home with VNS tomorrow Visit type - Emergency Visit Emergency Visit: Yes ED Registration Date: 04/12/18 Care time: The patient presented to the Emergency Department on the above date and was hospitalized for further evaluation of their emergent condition. - New Patient This patient is new to me today: No - Critical Care Critical Care patient: No - Discharge Referral Referred to [facility] Med P.C.: No
--- NOTE | 2018-04-19 21:55 | PN ---
Progress Note (short form) - Note Progress Note: covering dr clarke Problems HLD, DM, TIA SOB and cough/COPD exacerbation/hypercarbic respiratory failure +/- CHF exacerbation JOLIE during admission. #JOLIE likely due to intravascular volume depletion +/- contrast nephropathy ( contrast exposure on 04/12) #COPD exacerbation #Hx of CHF #CAD #Hypertension #Hyperkalemia Current Medications Acetaminophen (Tylenol -) 650 mg PO Q4H PRN PRN Reason: FEVER Albuterol Sulfate (Ventolin 0.083% Nebulizer Soln -) 1 amp NEB Q4H PRN PRN Reason: SHORT OF BREATH/WHEEZING Last Admin: 04/18/18 06:55 Dose: 1 amp Apixaban (Eliquis -) 5 mg PO BID [facility] Last Admin: 04/19/18 11:08 Dose: 5 mg Atorvastatin Calcium (Lipitor -) 40 mg PO HS [facility] Last Admin: 04/18/18 21:53 Dose: 40 mg Docusate Sodium (Colace -) 100 mg PO TID [facility] Last Admin: 04/19/18 15:35 Dose: Not Given Furosemide (Lasix -) 40 mg PO DAILY [facility] Last Admin: 04/19/18 11:08 Dose: 40 mg Insulin Aspart (Novolog Vial Sliding Scale -) 0 vial SQ ACHS [facility]; Protocol Last Admin: 04/19/18 16:43 Dose: 6 units Insulin Detemir (Levemir Vial) 30 units SQ BID@0700,2200 [facility] Last Admin: 04/19/18 06:20 Dose: 30 units Lactobacillus Acidophilus (Bacid -) 1 tab PO DAILY [facility] Last Admin: 04/19/18 11:08 Dose: 1 tab Levofloxacin (Levaquin -) 250 mg PO DAILY@0600 [facility] Stop: 04/21/18 06:01 Levothyroxine Sodium (Synthroid -) 25 mcg PO AM [facility] Last Admin: 04/19/18 06:22 Dose: 25 mcg Metoprolol Succinate (Toprol Xl -) 12.5 mg PO BID [facility] Pantoprazole Sodium (Protonix -) 40 mg PO DAILY [facility] Last Admin: 04/19/18 11:08 Dose: 40 mg Polyethylene Glycol (Miralax (For Daily Use) -) 17 gm PO BID [facility] Last Admin: 04/19/18 11:08 Dose: Not Given Prednisone (Deltasone -) 40 mg PO DAILY [facility] Tiotropium [place] (Spiriva Respimat) 2 puff IH DAILY [facility] Last Admin: 04/19/18 11:09 Dose: 2 puff Last Vital Signs Temp Pulse Resp BP Pulse Ox 98.8 F 57 L 18 115/41 L 100 04/19/18 17:00 04/19/18 17:00 04/19/18 17:00 04/19/18 17:00 04/19/18 09:00 alert in nad Lungs some wheezing Heart reg Abd soft ext no edema CBC, BMP 04/18/18 06:30 04/19/18 06:30 ckd renal function at baseline prerenal azotemia 2/2 diuretics and steroids
[2018-04-19] MEDS ORDERED: INSULIN (LEVEMIR) 100 UNITS/ML UNITS SQ SCH (23:00)
[2018-04-19] MEDS: ATORVASTATIN CA 40 MG TABLET (FP) PO SCH (23:17)
[2018-04-20] MEDS: INSULIN SLIDING SCALE (NOVOLOG) 1 VIAL SQ SCH ×3 (06:29→18:29)
[2018-04-20] MEDS: LEVOTHYROXINE NA 25 MCG TABLET (FP) PO SCH (06:30)
[2018-04-20] MEDS: DOCUSATE SODIUM 100 MG CAPSULE (FP) PO SCH ×2 (06:30→18:28)
[2018-04-20 07:18] VITALS: BMI 41.1
[2018-04-20 08:03] LABS: ANION GAP 4 MMOL/L (8-16); BLOOD UREA NITROGEN 33 mg/dL (7-18); CALCIUM 8.7 mg/dL (8.5-10.1); CHLORIDE 90 mmol/L (98-107); CO2 > 45 mmol/L (21-32); GLUCOSE,RANDOM 114 mg/dL (74-106); POTASSIUM 4.4 mmol/L (3.5-5.1); SODIUM 139 mmol/L (136-145)
[2018-04-20 09:53] VITALS: TEMP 98.1
[2018-04-20] MEDS ORDERED: predniSONE 20 MG TABLET (UD) PO SCH (10:00)
--- NOTE | 2018-04-20 10:22 | PN ---
Progress Note, Physician History of Present Illness: PULMONARY ALERT,COMFORTABLE OOB-CHAIR,-SOB,MIN COUGH,-CP - Current Medication List Current Medications: Active Medications Acetaminophen (Tylenol -) 650 mg PO Q4H PRN PRN Reason: FEVER Albuterol Sulfate (Ventolin 0.083% Nebulizer Soln -) 1 amp NEB Q4H PRN PRN Reason: SHORT OF BREATH/WHEEZING Last Admin: 04/18/18 06:55 Dose: 1 amp Apixaban (Eliquis -) 5 mg PO BID [facility] Last Admin: 04/19/18 23:17 Dose: 5 mg Atorvastatin Calcium (Lipitor -) 40 mg PO HS [facility] Last Admin: 04/19/18 23:17 Dose: 40 mg Docusate Sodium (Colace -) 100 mg PO TID [facility] Last Admin: 04/20/18 06:30 Dose: Not Given Furosemide (Lasix -) 40 mg PO DAILY [facility] Last Admin: 04/19/18 11:08 Dose: 40 mg Insulin Aspart (Novolog Vial Sliding Scale -) 0 vial SQ [facility]; Protocol Last Admin: 04/20/18 06:29 Dose: Not Given Insulin Detemir (Levemir Vial) 15 units SQ HS [facility] Last Admin: 04/19/18 23:14 Dose: 15 units Lactobacillus Acidophilus (Bacid -) 1 tab PO DAILY [facility] Last Admin: 04/19/18 11:08 Dose: 1 tab Levofloxacin (Levaquin -) 250 mg PO DAILY@0600 [facility] Stop: 04/21/18 06:01 Last Admin: 04/20/18 06:30 Dose: 250 mg Levothyroxine Sodium (Synthroid -) 25 mcg PO AM [facility] Last Admin: 04/20/18 06:30 Dose: 25 mcg Metoprolol Succinate (Toprol Xl -) 12.5 mg PO BID [facility] Last Admin: 04/19/18 23:18 Dose: Not Given Pantoprazole Sodium (Protonix -) 40 mg PO DAILY [facility] Last Admin: 04/19/18 11:08 Dose: 40 mg Polyethylene Glycol (Miralax (For Daily Use) -) 17 gm PO BID [facility] Last Admin: 04/19/18 23:17 Dose: Not Given Prednisone (Deltasone -) 40 mg PO DAILY [facility] Tiotropium [place] (Spiriva Respimat) 2 puff IH DAILY [facility] Last Admin: 04/19/18 11:09 Dose: 2 puff - Objective Vital Signs: Vital Signs Temperature 98.1 F 04/20/18 09:52 Pulse Rate 69 04/20/18 06:00 Respiratory Rate 20 04/20/18 09:00 Blood Pressure 111/45 L 04/20/18 06:00 O2 Sat by Pulse Oximetry (%) 100 04/20/18 09:00 Constitutional: Yes: Well Nourished, Calm Eyes: Yes: WNL HENT: Yes: WNL Neck: Yes: WNL Cardiovascular: Yes: Regular Rate and Rhythm, S1, S2 Respiratory: Yes: Wheezes (FEW SCATTERED WHEEZES) Gastrointestinal: Yes: Normal Bowel Sounds, Soft Extremities: Yes: WNL Edema: No Labs: CBC, BMP 04/20/18 05:40 INR, PTT INR 0.98 (0.83-1.09) 04/12/18 11:08 Problem List - Problems (1) CHF (congestive heart failure) Code(s): I50.9 - HEART FAILURE, UNSPECIFIED Qualifiers: Heart failure type: combined systolic and diastolic Heart failure chronicity: chronic Qualified Code(s): I50.42 - Chronic combined systolic ( congestive) and diastolic (congestive) heart failure (2) COPD exacerbation Code(s): J44.1 - CHRONIC OBSTRUCTIVE PULMONARY DISEASE W (ACUTE) EXACERBATION (3) Hypothyroid Code(s): E03.9 - HYPOTHYROIDISM, UNSPECIFIED (4) Pneumonia Code(s): J18.9 - PNEUMONIA, UNSPECIFIED ORGANISM Qualifiers: Pneumonia type: due to unspecified organism Laterality: right Lung location: middle lobe of lung Qualified Code(s): J18.1 - Lobar pneumonia, unspecified organism (5) Acute on chronic respiratory failure with hypoxia and hypercapnia Code(s): J96.21 - ACUTE AND CHRONIC RESPIRATORY FAILURE WITH HYPOXIA; J96.22 - ACUTE AND CHRONIC RESPIRATORY FAILURE WITH HYPERCAPNIA (6) Atrial fibrillation Code(s): I48.91 - UNSPECIFIED ATRIAL FIBRILLATION Qualifiers: Atrial fibrillation type: paroxysmal Qualified Code(s): I48.0 - Paroxysmal atrial fibrillation (7) CAD (coronary artery disease) Code(s): I25.10 - ATHSCL HEART DISEASE OF [place] CORONARY ARTERY W/O ANG PCTRS Qualifiers: Coronary Disease-Associated Artery/Lesion type: [place] artery [place] vs. transplanted heart: [place] heart Associated angina: without angina Qualified Code(s): I25.10 - Atherosclerotic heart disease of [place] coronary artery without angina pectoris (8) HTN (hypertension) Code(s): I10 - ESSENTIAL (PRIMARY) HYPERTENSION Qualifiers: Hypertension type: essential hypertension Qualified Code(s): I10 - Essential (primary) hypertension (9) Hyperglycemia due to type 2 diabetes mellitus Code(s): E11.65 - TYPE 2 DIABETES MELLITUS WITH HYPERGLYCEMIA (10) Obesity (BMI 30-39.9) Code(s): E66.9 - OBESITY, UNSPECIFIED Assessment/Plan IMP ACUTE ON CHRONIC HYPOXEMIC/HYPERCAPNEIC RESPIRATORY FAILURE IMPROVED ASTHMA/COPD EXACERBATION CLINICALLY IMPROVING PNEUMONIA CHF JOLIE + TROPONIN ASHD S/P STENTS DM HTM HYPOTHYROID PLAN PREDNISONE INHALED BRONCHODILATORS SUPPLEMENTAL O2 MONITOR LYTES,RENAL FUNCTION PFTS OUTPATIENT CHEST X-RAY TODAY PA+ LATERAL DR CAAL Problem List - Problems (1) CHF (congestive heart failure) Code(s): I50.9 - HEART FAILURE, UNSPECIFIED Qualifiers: Heart failure type: combined systolic and diastolic Heart failure chronicity: chronic Qualified Code(s): I50.42 - Chronic combined systolic ( congestive) and diastolic (congestive) heart failure (2) COPD exacerbation Code(s): J44.1 - CHRONIC OBSTRUCTIVE PULMONARY DISEASE W (ACUTE) EXACERBATION (3) Hypothyroid Code(s): E03.9 - HYPOTHYROIDISM, UNSPECIFIED (4) Pneumonia Code(s): J18.9 - PNEUMONIA, UNSPECIFIED ORGANISM Qualifiers: Pneumonia type: due to unspecified organism Laterality: right Lung location: middle lobe of lung Qualified Code(s): J18.1 - Lobar pneumonia, unspecified organism (5) Acute on chronic respiratory failure with hypoxia and hypercapnia Code(s): J96.21 - ACUTE AND CHRONIC RESPIRATORY FAILURE WITH HYPOXIA; J96.22 - ACUTE AND CHRONIC RESPIRATORY FAILURE WITH HYPERCAPNIA (6) Atrial fibrillation Code(s): I48.91 - UNSPECIFIED ATRIAL FIBRILLATION Qualifiers: Atrial fibrillation type: paroxysmal Qualified Code(s): I48.0 - Paroxysmal atrial fibrillation (7) CAD (coronary artery disease) Code(s): I25.10 - ATHSCL HEART DISEASE OF [place] CORONARY ARTERY W/O ANG PCTRS Qualifiers: Coronary Disease-Associated Artery/Lesion type: [place] artery [place] vs. transplanted heart: [place] heart Associated angina: without angina Qualified Code(s): I25.10 - Atherosclerotic heart disease of [place] coronary artery without angina pectoris (8) HTN (hypertension) Code(s): I10 - ESSENTIAL (PRIMARY) HYPERTENSION Qualifiers: Hypertension type: essential hypertension Qualified Code(s): I10 - Essential (primary) hypertension (9) Hyperglycemia due to type 2 diabetes mellitus Code(s): E11.65 - TYPE 2 DIABETES MELLITUS WITH HYPERGLYCEMIA (10) Obesity (BMI 30-39.9) Code(s): E66.9 - OBESITY, UNSPECIFIED
--- NOTE | 2018-04-20 10:58 | PN ---
Progress Note (short form) - Note Progress Note: cc: cp no palps, dizziness, lightheadedness, dyspnea cp Current Medications Generic Name Dose Route Start Last Admin Trade Name Freq PRN Reason Stop Dose Admin Acetaminophen 650 mg 04/12/18 14:17 Tylenol - PO Q4H PRN FEVER Albuterol Sulfate 1 amp 04/12/18 14:21 04/18/18 06:55 Ventolin 0.083% Nebulizer Soln - NEB 1 amp Q4H PRN Administration SHORT OF BREATH/WHEEZING Apixaban 5 mg 04/12/18 22:00 04/19/18 23:17 Eliquis - PO 5 mg BID RYANN Administration Atorvastatin Calcium 40 mg 04/12/18 22:00 04/19/18 23:17 Lipitor - PO 40 mg HS [facility]ANN Administration Docusate Sodium 100 mg 04/14/18 15:15 04/20/18 06:30 Colace - PO Not Given TID RYANN Furosemide 40 mg 04/17/18 10:00 04/19/18 11:08 Lasix - PO 40 mg DAILY [facility] Administration Insulin Aspart 0 vial 04/14/18 12:14 04/20/18 06:29 Novolog Vial Sliding Scale - SQ Not Given ACHS [facility] Protocol Insulin Detemir 15 units 04/19/18 23:00 04/19/18 23:14 Levemir Vial SQ 15 units HS [facility] Administration Lactobacillus Acidophilus 1 tab 04/13/18 10:00 04/19/18 11:08 Bacid - PO 1 tab DAILY [facility] Administration Levofloxacin 250 mg 04/20/18 06:00 04/20/18 06:30 Levaquin - PO 04/21/18 06:01 250 mg DAILY@0600 [facility] Administration Levothyroxine Sodium 25 mcg 04/16/18 07:00 04/20/18 06:30 Synthroid - PO 25 mcg AM [facility] Administration Metoprolol Succinate 12.5 mg 04/19/18 11:33 04/19/18 23:18 Toprol Xl - PO Not Given BID R[facility]ANN Pantoprazole Sodium 40 mg 04/13/18 10:00 04/19/18 11:08 Protonix - PO 40 mg DAILY [facility] Administration Polyethylene Glycol 17 gm 04/14/18 22:00 04/19/18 23:17 Miralax (For Daily Use) - PO Not Given BID [facility] Prednisone 40 mg 04/20/18 10:00 Deltasone - PO DAILY [facility] Tiotropium [place] 2 puff 04/14/18 12:00 04/19/18 11:09 Spiriva Respimat IH 2 puff DAILY [facility] Administration Vital Signs: Vital Signs Period Temp Pulse Resp BP Sys/[place]ner Pulse Ox Last 24 Hr 97.9 F-100.3 F 53-69 18-20 111-137/41-65 100-100 Constitutional: Yes: Well Nourished, No Distress, Obese Eyes: No: Sclera Icterus Respiratory: Yes: cta bl nl eff Gastrointestinal: Yes: Normal Bowel Sounds. No: Distention, Hepatomegaly, Palpable Mass, Tenderness Cardiovascular: Yes: Regular Rate and Rhythm JVD: No Heart Sounds: Yes: S1, S2. No: Gallop, Irregular Murmur: No: Systolic Murmur, Diastolic Murmur Extremities: No: Cold, Cyanosis Edema: No Peripheral Pulses: 2+ Left Carotid, 2+ Right Carotid, 2+ Left Doralis Pedis, 2+ Right Dorsalis Pedis Integumentary: No: Jaundice Neurological: Yes: Alert, Oriented (x3) Psychiatric: No: Agitated CBC, BMP 04/18/18 06:30 04/20/18 05:40 ECG #1 04/12: NSR, RBBB, ? old IWMI, ? old AWMI--no change vs 11/12 #2 04/12: no change 04/13: no change CTA chest 04/14: mild dilated PA suggestive of pulm HTN. RLL opacity, patchy opacities elsewhere. no pulm edema or effusion LHC/PCI 10/2013: mid LAD and Diag YURIY PCI, residual prox LCX 90-95% calcific and only 30-50% dist LM disease MPI 10/2017 (gillian): no STs. anteroseptal and inferolateral infarcts. no ischemia. EF 38%. Echo 04/2017: mild dec lvef, apical hk. nl rv. mod mr, mild-mod tr, mild as, rvsp 40-50 Echo 10/2013 : mildly reduced LVF, apical severe HK, anterior mod HK, mild to mod MR, mild to mod TR, RVSP 50-60 tele: sr a/p: 82 yr old lady with known CAD/pci, chf, HTN, HPL, DM, pad, obesity, pafib (dx 05/2017 when admitted for copd) sent from pmd for low 02 sat a.e. copd, PNA: -per hospitalist chronic mixed diastolic/systolic CHF: -chronic, mild LV hypokinesis unchanged on recent echo 2017 -here with low o2 sat (85%) -bnp 4K, prior range 7K-18K. CT chest without congestion -here with presentation equivocal for acute chf 11/12 (in setting of copd exacerbation), treated with lasix 40 IV qd. -appears euvolemic on home lasix 40 mg PO daily CAD s/p PCI, atypical CP -pt s/p rota YURIY PCI of mid LAD and Diag 2013, residual prox LCX 90-95% calcific --medically managed -Has been stable, no anginal sxs. -atypical cp symptoms on prior admits, last 11/12 with enzymes neg, no acute isch ecg at that time -currently with non-exertional chest burning/squeezing sensation. trop 0.1-0.2- 0.1 is indeterminate range, flat trend, not c/w ACS -ECG's here unchanged vs prior, including repeat -recent nuclear stress test with no demonstrable ischemia (fixed defects, as above) -sx's may be due to ongoing airways restriction/copd exacerbation/PNA. -Cont home regimen: bb, statin, ac JOLIE: -cr improving, may have been contrast induced nephropathy - renal following HTN: -cont current meds pafib: -toprol 12.5 mg BID for rate control if reverts back to afib (had rvr here at times). -cont eliquis 5 bid for AC PAD: -known occluded R SFA on 2014 periph angiogram, with dz on L below knee -routine outpt f/u cardiac marie ok for dc
[2018-04-20] MEDS: FUROSEMIDE 40 MG TABLET (FP) PO SCH (11:09)
[2018-04-20] MEDS: LACTOBACILLUS ACIDOPHILUS 1 TABLET PO SCH (11:09)
[2018-04-20] MEDS: metoPROLOL SUCCINATE 25 MG TAB.SR.24H (FP) PO SCH (11:10)
[2018-04-20] MEDS: TIOTROPIUM BROMIDE 2.5 MCG (SPIRIVA) RESPIMAT INHALER IH SCH (11:10)
[2018-04-20] MEDS: PANTOPRAZOLE 40 MG TABLET (FP) PO SCH (11:10)
[2018-04-20] MEDS: APIXABAN 5 MG TABLET PO SCH (11:10)
[2018-04-20] MEDS: POLYETHYLENE GLYCOL 3350 119 GM BTL PO SCH (11:10)
--- NOTE | 2018-04-20 12:52 | DS ---
Physical Examination Vital Signs: Vital Signs Temperature 98.1 F 04/20/18 09:52 Pulse Rate 69 04/20/18 06:00 Respiratory Rate 20 04/20/18 09:00 Blood Pressure 111/45 L 04/20/18 06:00 O2 Sat by Pulse Oximetry (%) 100 04/20/18 09:00 Constitutional: Yes: Well Nourished, No Distress, Calm Cardiovascular: Yes: WNL, Regular Rate and Rhythm Respiratory: Yes: Regular, Cough, Diminished, On Nasal O2. No: Accessory Muscle Use, SOB, Tachypnea, Wheezes Gastrointestinal: Yes: WNL, Normal Bowel Sounds, Soft. No: Distention, Tenderness, Vomiting Renal/: Yes: WNL Extremities: Yes: WNL Edema: Yes Edema: LLE: Trace, RLE: Trace Neurological: Yes: WNL, Alert, Oriented Psychiatric: Yes: WNL, Alert, Oriented Labs: CBC, BMP 04/18/18 06:30 04/20/18 05:40 Discharge Summary Reason For Visit: ACUTE EXACERBATION OF CHRONIC OBSTRUCTIVE Current Active Problems JOLIE (acute kidney injury) (Acute) Acute on chronic respiratory failure with hypoxemia (Acute) Atrial fibrillation (Acute) CHF (congestive heart failure) (Acute) COPD exacerbation (Acute) Chest pain (Acute) Diabetes (Acute) Hyperglycemia, drug-induced (Acute) Hyperkalemia (Acute) Hyponatremia (Acute) Hypothyroid (Acute) Pneumonia (Acute) Hospital Course: 83 year old female admitted for acute respiratory failure 2/2 acute copd exacerbation, and pna. Pt evaluated by pulm, required iv medrol, transitioned to po prednisone today. completed 10 day course of levaquin with improvement in symptoms, sputum/blood cultures negative. lung exam improved, pt is on home O2 which she may continue upon discharge. Pt is cleared by pulm for discharge, repeat chest imaging in 4-6 weeks. Pt had hyperglycemia during her course of iv steroids which required increased dose of levemir, with tapering of steroids, hyperglycemia improving, pt can continue home dose of levemir as prior. JOLIE- improved with ivf and po intake, renal function at baseline. chest pain- acs ruled out . suspect pleurisy. cardiology evaluated. pt noted to by bradycardic, metoprolol reduced to 12.5mg bid. Pt is medically stable for discharge. vitals stable, labs unremarkable. Pt has been cleared by pulm, nephrology, and cardiology for discharge. 40 minutes spent in discharge planning Condition: Improved - Instructions Diet, Activity, Other Instructions: repeat chest imaging in 6-8 weeks continue home O2 prednisone 40mg, decrease by 10mg every 3 days f/u as directed Referrals: Kiel Obregon MD [Staff Physician] - 2 Weeks Derek Geller MD [Staff Physician] - 2 Weeks Aleena Fournier MD [Primary Care Provider] - 1 Week Disposition: VNS/HOME HEALTH CARE - Home Medications Comprehensive Discharge Medication List: Ambulatory Orders Insulin Lispro [Humalog] 0 unit SQ TIDCM PRN 03/02/14 Apixaban [Eliquis -] 5 mg PO BID #60 tablet 06/09/17 Insulin (Levemir) [Levemir Vial] 15 unit SQ HS 07/16/17 Furosemide [Lasix] 40 mg PO DAILY #30 tablet 07/20/17 Levothyroxine [Synthroid -] 25 mcg PO DAILY 10/27/17 Atorvastatin Ca [Lipitor] 40 mg PO HS #30 tablet 11/04/17 Ipratropium/Albuterol Sulfate [Combivent Respimat 20-100 Mcg] 4 gm IH TID #1 aer.w.adap 11/04/17 Pantoprazole Sodium [Protonix -] 40 mg PO DAILY #30 tablet.ec 11/04/17 Metoprolol Succinate [Toprol XL -] 12.5 mg PO BID #60 tab.sr.24h 04/20/18 predniSONE [Deltasone -] See Taper PO DAILY #20 tablet 04/20/18
[2018-04-20 16:12] VITALS: BP 132/70; PULSE 72
--- NOTE | 2018-04-20 18:18 | PN ---
Progress Note (short form) - Note Progress Note: covering dr clarke Problems HLD, DM, TIA SOB and cough/COPD exacerbation/hypercarbic respiratory failure +/- CHF exacerbation JOLIE during admission. JOLIE likely due to intravascular volume depletion +/- contrast nephropathy ( contrast exposure on 04/12) COPD exacerbation Hx of CHF CAD Hypertension Hyperkalemia Last Vital Signs Temp Pulse Resp BP Pulse Ox 98.1 F 72 18 132/70 100 04/20/18 09:52 04/20/18 09:52 04/20/18 09:52 04/20/18 09:52 04/20/18 09:00 S- no c/o being d/c alert in nad Lungs some wheezing Heart reg Abd soft ext no edema CBC, BMP 04/20/18 05:40 CBC, BMP 04/18/18 06:30 04/19/18 06:30 IMP- ckd renal function at baseline prerenal azotemia 2/2 diuretics and steroids Plan- agree with d/c
== END 2018-04-20 18:53 | disposition home health service (06) | DRG 193 ==
LOC: JER 10:29 → JERBED 12:50 → J4W 16:50
PROVIDERS: ADMIT Internal Medicine; ATTEND Nurse Practitioner Family
DX: J18.1 Lobar pneumonia, unspecified organism (principal); J96.21 Acute and chronic respiratory failure with hypoxia; J96.22 Acute and chronic respiratory failure with hypercapnia; J44.1 Chronic obstructive pulmonary disease with (acute) exacerbation; N17.9 Acute kidney failure, unspecified; I50.42 Chronic combined systolic (congestive) and diastolic (congestive) heart failure; E87.1 Hypo-osmolality and hyponatremia; Z68.41 Body mass index [BMI] 40.0-44.9, adult; E66.01 Morbid (severe) obesity due to excess calories; I48.2 Chronic atrial fibrillation; J44.9 Chronic obstructive pulmonary disease, unspecified; E11.51 Type 2 diabetes mellitus with diabetic peripheral angiopathy without gangrene; E78.5 Hyperlipidemia, unspecified; E87.5 Hyperkalemia; I11.0 Hypertensive heart disease with heart failure; E03.9 Hypothyroidism, unspecified; I45.10 Unspecified right bundle-branch block; I25.10 Atherosclerotic heart disease of native coronary artery without angina pectoris; R09.02 Hypoxemia; E09.65 Drug or chemical induced diabetes mellitus with hyperglycemia; T38.0X5A Adverse effect of glucocorticoids and synthetic analogues, initial encounter; R26.9 Unspecified abnormalities of gait and mobility; I25.2 Old myocardial infarction; K44.9 Diaphragmatic hernia without obstruction or gangrene; I48.0 Paroxysmal atrial fibrillation; Z79.4 Long term (current) use of insulin; Z86.73 Personal history of transient ischemic attack (TIA), and cerebral infarction without residual deficits; Z95.5 Presence of coronary angioplasty implant and graft
CPT/HCPCS: 36415; 36600; 71045-TC-FY; 71046-TC-FY; 71275-TC; 80048; 80053; 81003; 82436; 82550; 82553; 82570; 82803; 82962; 83605; 83735; 83880; 84100; 84133; 84300; 84484; 84540; 85025; 85610; 85730; 87040; 87070; 87205; 87804; 93005; 93010; 93970-TC; 94640; 97116-GP; 99285-25; J0131; J7030

== ENCOUNTER 2018-10-21 12:15 | Inpatient (IN) | payer OTHER ==
--- NOTE | 2018-10-21 13:07 | PDOC ---
History of Present Illness - General Chief Complaint: Altered Mental Status Stated Complaint: Altered Mental Status Time Seen by Provider: 10/21/18 13:06 - History of Present Illness Initial Comments: 10/21/18 13:14 Ms. Kolby Sharp is an 83 yo female w/ pmh of HTN, HLD, DM, COPD (2L NC baseline) , CAD, TIA, CHF who presents with family for evaluation of decreased mental status. Patient is alert and complains only of some nausea (has not vomited), however family reports that starting yesterday she has been "off." Granddaughter who is with reports she noted her excessively sleepy around 8pm last night. Today she has been unable to recognize family members. Patient is typically alert and oriented. Patient otherwise has no complaints at this time. Patient does not ambulate at baseline 2/2 arthritis. The patient denies chest pain, shortness of breath, headache and dizziness. Denies fever, chills, vomit, diarrhea and constipation. Denies dysuria, frequency, urgency and hematuria. tPA Exclusion checklist 3-4.5h - Time Elapsed Date last known well: 10/20/18 Time last known well: 20:00 Elaspsed time: Day(s) and 21 Hour(s) and 54 Minutes - Thrombolytic Therapy Candidate Is patient eligible for thrombolytic therapy: No - Exclusion Criteria 3-4.5 hr SBP greater than 185 or DBP greater than 110mmHg despite tx: No Recent IC/spinal surgery,head trauma or stroke<3mos.: No Hx IC hemorrhage, IC neoplasm, AV malformation or aneurysm: No Active internal bleeding: No Blding diathesis(low plt ct, inc PTT,INR>1.7 or use of NOAC): No Symptoms suggest subarachnoid hemorrhage: No CT demonstrates multilobar infarct(>1/3 cerebral hemiphere): No Arterial puncture at noncompressible site in previous 7 days: No Blood glucose concentration less than 50mg/dL (2.7mmol/L): No - Relative Exclusion Criteria 3-4.5 hr Life expectancy <1 yr or severe co-morbid illness: No : No Patient/family refused: No Rapid improvement: No Stroke severity too mild: Yes Recent acute NV (w/in previous 3 months): No Seizure at onset with postictal residual neuro impairments: No Major surgery or serious trauma w/in previous 14 days: No Recent GI or hemorrhage (w/in previous 21 days): No - Add'l Relative Exclusion 3-4.5 hr Age > 80: Yes Hx of both diabetes AND prior ischemic stroke: No Taking an oral anticoagulant regardless of INR: No NIHSS >25: No - Ineligibility reason(s) Reasons No tPA given: Outside of window - delayed arrival, See reason(s) noted above NIH Stroke Scale - Last Known Well Date/Time & Onset Date Last Known Well: 10/20/18 Time Last Known Well: 20:00 - Initial Evaluation Level of consciousness: Alert Ask patient the month and their age: Answers both correctly Ask patient to open & close eyes; make fist and let go: Obeys both correctly Best gaze (horizontal eye movement): Normal Visual field testing: No visual field loss Facial paresis (Show teeth/raise eyebrows/close eyes tight): Normal symmetrical movement Motor Function: Left Arm: Normal Motor Function: Right Arm: Normal (extends arm 90 (or 45) degrees for 10 seconds without drift Motor Function: Left Leg: Normal (extends leg 30 degrees for 5 seconds without drift) Motor Function: Right Leg: Normal (extends leg 30 degrees for 5 seconds without drift) Limb Ataxia: No ataxia Sensory(Use pinprick test arms,legs,trunk,face/side to side): Normal Best language (Describe picture, name items, read sentences): No Aphasia Dysarthria (read several words): Normal articulation Extinction and Inattention: No abnormality - Total Score NIH Stroke Scale Score: 0 Past History - Past Medical History Allergies/Adverse Reactions: Allergies Allergy/AdvReac Type Severity Reaction Status Date / Time Penicillins Allergy Verified 04/12/18 10:51 Apple juice Allergy Uncoded 04/12/18 10:51 Home Medications: Ambulatory Orders Insulin Lispro [Humalog] 0 unit SQ TIDCM PRN 03/02/14 Apixaban [Eliquis -] 5 mg PO BID #60 tablet 06/09/17 Insulin (Levemir) [Levemir Vial] 15 unit SQ HS 07/16/17 Furosemide [Lasix] 40 mg PO DAILY #30 tablet 07/20/17 Levothyroxine [Synthroid -] 25 mcg PO DAILY 10/27/17 Atorvastatin Ca [Lipitor] 40 mg PO HS #30 tablet 11/04/17 Pantoprazole Sodium [Protonix -] 40 mg PO DAILY #30 tablet.ec 11/04/17 Metoprolol Succinate [Toprol XL -] 25 mg PO BID 10/21/18 Anemia: No Asthma: No Cancer: No Cardiac Disorders: Yes (NV with stents) CVA: No COPD: Yes (COPD) CHF: Yes DVT: No Dementia: No Diabetes: Yes GI Disorders: No Disorders: No HTN: Yes Hypercholesterolemia: Yes Liver Disease: No Seizures: Yes Thyroid Disease: No - Surgical History Abdominal Surgery: No Appendectomy: No Cardiac Surgery: Yes (cardiac cath with stents) Cholecystectomy: Yes (2010) Lung Surgery: No Neurologic Surgery: No Orthopedic Surgery: No - Family Disease History Family Disease History: Diabetes: Mother - Immunization History Immunization Up to Date: Yes - Suicide/Smoking/Psychosocial Hx Smoking History: Former smoker Have you smoked in the past 12 months: No Information on smoking cessation initiated: No Hx Alcohol Use: No Drug/Substance Use Hx: No Substance Use Type: None Hx Substance Use Treatment: No Review of Systems - Review of Systems Comments:: 10/21/18 13:20 GENERAL/CONSTITUTIONAL: No fever or chills. No weakness. HEAD, EYES, EARS, NOSE AND THROAT: No change in vision. No ear pain or discharge. No sore throat. CARDIOVASCULAR: No chest pain or shortness of breath RESPIRATORY: No cough, wheezing, or hemoptysis. GASTROINTESTINAL: +Upper abdominal discomfort and mild nausea w/out vomiting, diarrhea or constipation. GENITOURINARY: No dysuria, frequency, or change in urination. MUSCULOSKELETAL: No joint or muscle swelling or pain. No neck or back pain. SKIN: No rash NEUROLOGIC: +AMS as described. No headache, vertigo, loss of consciousness, or change in strength/sensation. ENDOCRINE: No increased thirst. No abnormal weight change HEMATOLOGIC/LYMPHATIC: No anemia, easy bleeding, or history of blood clots. ALLERGIC/IMMUNOLOGIC: No hives or skin allergy. *Physical Exam - Vital Signs Last Vital Signs Temp Pulse Resp BP Pulse Ox 98.1 F 59 L 19 133/85 100 10/21/18 12:17 10/21/18 12:17 10/21/18 12:17 10/21/18 12:17 10/21/18 12:17 - Physical Exam Comments: 10/21/18 13:20 GENERAL: +Patient oriented x3 however cannot recognize daughter. Awake, alert, in no acute distress HEAD: No signs of trauma, normocephalic, atraumatic EYES: PERRLA, EOMI, sclera anicteric, conjunctiva clear ENT: Auricles normal inspection, hearing grossly normal, nares patent, oropharynx clear without exudates. Moist mucosa NECK: Normal ROM, supple, no lymphadenopathy, JVD, or masses LUNGS: No distress, speaks full sentences, clear to auscultation bilaterally HEART: Regular rate and rhythm, normal S1 and S2, no murmurs, rubs or gallops, peripheral pulses normal and equal bilaterally. ABDOMEN: Soft, nontender, normoactive bowel sounds. No guarding, no rebound. No masses EXTREMITIES: Normal inspection, Normal range of motion, no edema. No clubbing or cyanosis. NEUROLOGICAL: Cranial nerves II through XII grossly intact. Normal speech, no focal sensorimotor deficits SKIN: Warm, Dry, normal turgor, no rashes or lesions noted. ED Treatment Course - LABORATORY CBC & Chemistry Diagram: 10/21/18 14:54 10/21/18 14:54 Medical Decision Making - Medical Decision Making 10/21/18 16:00 Ms. Kolby Sharp is an 83 yo female w/ pmh as described who presents for evaluation of change in mental status. Patient evaluated for r/o stroke given rapid changes with additional evaluation for hypoglycemia (111 BGM upon arrival) , infection, cardiac or electrolyte abnormality. Patient noted to have elevated troponin however this is below patient's baseline. 10/21/18 17:55 Labs significant only for mild anemia as below. Patient Head CT negative for acute process. Etiology of AMS unclear at this time. Patient will be admitted for further neurological evaluation. Laboratory Results - last 24 hr 10/21/18 10/21/18 10/21/18 14:52 14:54 14:54 WBC 5.5 RBC 4.75 Hgb 9.7 L Hct 32.2 L MCV 67.8 L MCH 20.4 L MCHC 30.2 L RDW 16.4 H Plt Count 248 MPV 7.9 Absolute Neuts (auto) 3.9 Neutrophils % 70.4 D Lymphocytes % 16.3 D Monocytes % 8.7 D Eosinophils % 2.6 D Basophils % 2.0 D Nucleated RBC % 0 PT with INR 14.20 H INR 1.20 H Sodium Potassium Chloride Carbon Dioxide Anion Gap BUN Creatinine Est GFR (CKD-EPI)AfAm Est GFR (CKD-EPI)NonAf POC Glucometer 111 Random Glucose Calcium Total Bilirubin AST ALT Alkaline Phosphatase Creatine Kinase Troponin I Total Protein Albumin Triglycerides Cholesterol Total LDL Cholesterol HDL Cholesterol Urine Color Urine Appearance Urine pH Ur Specific [place] Urine Protein Urine Glucose (UA) Urine Ketones Urine Blood Urine Nitrite Urine Bilirubin Urine Urobilinogen Ur Leukocyte Esterase Urine WBC (Auto) Urine RBC (Auto) Urine Casts (Auto) U Pathogenic Cast Auto U Epithel Cells (Auto) Urine Bacteria (Auto) 10/21/18 10/21/18 14:54 15:27 WBC RBC Hgb Hct MCV MCH MCHC RDW Plt Count MPV Absolute Neuts (auto) Neutrophils % Lymphocytes % Monocytes % Eosinophils % Basophils % Nucleated RBC % PT with INR INR Sodium 142 Potassium 4.9 Chloride 96 L Carbon Dioxide > 45 H Anion Gap 1 L BUN 33.0 H Creatinine 1.0 Est GFR (CKD-EPI)AfAm 60.76 Est GFR (CKD-EPI)NonAf 52.42 POC Glucometer Random Glucose 98 Calcium 9.1 Total Bilirubin 1.3 H AST 23 ALT 14 Alkaline Phosphatase 62 Creatine Kinase 67 Troponin I 0.09 H Total Protein 7.4 Albumin 3.2 L Triglycerides 74 Cholesterol 150 Total LDL Cholesterol 82 HDL Cholesterol 58 Urine Color Yellow Urine Appearance Clear Urine pH 5.0 Ur Specific [place] 1.016 Urine Protein 1+ H Urine Glucose (UA) Negative Urine Ketones Negative Urine Blood Negative Urine Nitrite Negative Urine Bilirubin Negative Urine Urobilinogen 1.0 Ur Leukocyte Esterase Negative Urine WBC (Auto) 0 Urine RBC (Auto) 1 Urine Casts (Auto) 9 U Pathogenic Cast Auto No Result Required. U Epithel Cells (Auto) 0.7 Urine Bacteria (Auto) 4.9 *DC/Admit/Observation/Transfer Diagnosis at time of Disposition: Altered mental status Qualifiers: Altered mental status type: unspecified Qualified Code(s): R41.82 - Altered mental status, unspecified - Discharge Dispostion Decision to Admit order: Yes - Referrals Referrals: Aleena Fournier MD [Primary Care Provider] - - Patient Instructions - Post Discharge Activity
[2018-10-21] MEDS ORDERED: SODIUM CHLORIDE 500 ML IV STA ×2 (14:11→16:17)
[2018-10-21 15:04] LABS: EOS % 2.6 % (0-4.5); HEMATOCRIT 32.2 % (32.4-45.2); HEMOGLOBIN 9.7 GM/dL (10.7-15.3); LYMPH % 16.3 % (8-40); MCH 20.4 pg (25.7-33.7); MCHC 30.2 g/dl (32.0-36.0); MEAN CELL VOLUME 67.8 fl (80-96); MEAN PLT VOLUME 7.9 fl (7.5-11.1); MONO % 8.7 % (3.8-10.2); NEUT % 70.4 % (42.8-82.8); PLATELET COUNT 248 K/MM3 (134-434); RBC 4.75 M/mm3 (3.60-5.2); RDW 16.4 % (11.6-15.6); WHITE BLOOD COUNT 5.5 K/mm3 (4.0-10.0)
[2018-10-21 15:23] LABS: INR 1.2 (0.83-1.09); PROTHROMBIN TIME (PATIENT) 14.2 SEC (9.7-13.0)
--- NOTE | 2018-10-21 15:38 | PDOC ---
Documentation entered by Darcy Jarrett SCRIBE, acting as scribe for Jose Patel MD. Jose Patel MD: This documentation has been prepared by the scribe, Darcy Jarrett SCRIBE, under my direction and personally reviewed by me in its entirety. I confirm that the documentation accurately reflects all work, treatment, procedures, and medical decision making performed by me. Attending Attestation - Resident Resident Name: ArthuroscaringaJeremiahBeto - ED Attending Attestation I have performed the following: I have examined & evaluated the patient, The case was reviewed & discussed with the resident, I agree w/resident's findings & plan, Exceptions are as noted - HPI HPI: 10/21/18 13:41 The patient is an 83-year-old female, with a past medical history of DM, HTN, HLD, MO, COPD (2L NC baseline), CHF, DM, seizures, who presents to the ED with altered mental status. Granddaughter is at bedside and reports that she noted the patient was not herself last night and woke up this morning and was unable to recognize who her daughter was. Patient is complaining of 3 days of epigastric pain and nausea, but denies any vomiting. The patient denies any fever, chills, vomiting, diarrhea, or constipation. Denies any chest pain, palpitations, or shortness of breath. Denies any urinary symptoms. Allergies: Penicillins, apple juice. Social History: None reported. Surgical History: Cardiac cath w/ stent placement, cholecystectomy - 2010. PCP: Dr. Aleena Fournier 10/21/18 15:34 - Physicial Exam PE: Patient is awake and alert, obese, in no distress Normocephalic, atraumatic PERRLA, EOMI Mucous membranes are dry No JVD No carotid bruits cta RRR Bilateral lower extremity edema Patient is alert, oriented to self and place; patient is unable to lift her lower extremities off the stretcher bilaterally (known to be old); neurovascularly intact distally; Babinski is negative bilaterally; no pronation drift - Medical Decision Making 10/21/18 15:37 Patient is an 83-year-old female with multiple comorbidities who presents with altered mental status for the past 24 hours. Differential diagnoses includes CVA versus toxic metabolic encephalopathy versus urosepsis versus polypharmacy. Will obtain CT of head; we'll obtain CBC/CMP/cardiac profile/urinalysis. Will hydrate. Will reassess.
[2018-10-21 15:41] LABS: EPI CELLS 0.7 /HPF (0-5/HPF); HYALINE CASTS 9 /lpf (0-8); URINE APPEARANCE CLEAR; URINE BACTERIA 4.9 /hpf (NEGATIVE); URINE BILIRUBIN NEGATIVE (NEGATIVE); URINE COLOR YELLOW; URINE GLUCOSE (UA) NEGATIVE (NEGATIVE); URINE KETONE NEGATIVE (NEGATIVE); URINE LEUK ESTERASE NEGATIVE (NEGATIVE); URINE NITRITE NEGATIVE (NEGATIVE); URINE PROTEIN 1+ (NEGATIVE); URINE RBC 1 /hpf (0-4); URINE WBC 0 /hpf (0-5)
[2018-10-21 15:41] LABS: ALBUMIN 3.2 g/dl (3.4-5.0); ALK PHOS 62 U/L (45-117); ANION GAP 1 MMOL/L (8-16); BILIRUBIN,TOTAL 1.3 mg/dL (0.2-1); CALCIUM 9.1 mg/dL (8.5-10.1); CHLORIDE 96 mmol/L (98-107); CHOLESTEROL 150 mg/dL (50-200); CO2 > 45 mmol/L (21-32); GLUCOSE,RANDOM 98 mg/dL (74-106); HDL CHOLESTEROL 58 mg/dL (40-60); POTASSIUM 4.9 mmol/L (3.5-5.1); SGOT/AST 23 U/L (15-37); SGPT/ALT 14 U/L (13-61); SODIUM 142 mmol/L (136-145); TOT PROT 7.4 g/dl (6.4-8.2); TRIGLYCERIDES 74 mg/dL (0-150)
--- NOTE | 2018-10-21 18:51 | PN ---
Teaching Attending Note Name of Resident: Aleena Cook ATTENDING PHYSICIAN STATEMENT I saw and evaluated the patient. I reviewed the resident's note and discussed the case with the resident. I agree with the resident's findings and plan as documented. SUBJECTIVE: This is an 83 year old woman with a history of COPD, chronic hypoxic and hypecapnic respiratory failure, CAD/PR/stent, PAF, chronic systolic and diastolic heart failure, type 2 DM, hypothyroidism, hyperlipidemia, HTN, PAD , possible seizures who was brought in to the ED by family because of decreased alertness confusion since last night. Family felt that something wasn't right yesterday. Around 8pm, they noted her to be very sleepy. This morning around 10 am, her right side was noted to be shaking and her eyes moving back and forth. She then seemed to not recognize her family. Currently, she is alert, oriented, and has no complaints. She reports having epigastric abdominal pain with nausea for the last 3 days. OBJECTIVE: Vital Signs Period Temp Pulse Resp BP Sys/[place]ardner Pulse Ox Last 24 Hr 98.1 F 59 19 133/85 100 HEART: S1S2, RRR LUNGS: Clear ABDOMEN: Obese, soft, non-tender, non-distended, normal BS EXTREMITIES: No edema NEUROLOGICAL: Alert, oriented, non-focal Laboratory Tests 10/21/18 10/21/18 10/21/18 14:52 14:54 14:54 WBC 5.5 RBC 4.75 Hgb 9.7 L Hct 32.2 L MCV 67.8 L MCH 20.4 L MCHC 30.2 L RDW 16.4 H Plt Count 248 MPV 7.9 Absolute Neuts (auto) 3.9 Neutrophils % 70.4 D Lymphocytes % 16.3 D Monocytes % 8.7 D Eosinophils % 2.6 D Basophils % 2.0 D Nucleated RBC % 0 PT with INR 14.20 H INR 1.20 H Sodium Potassium Chloride Carbon Dioxide Anion Gap BUN Creatinine Est GFR (CKD-EPI)AfAm Est GFR (CKD-EPI)NonAf POC Glucometer 111 Random Glucose Calcium Total Bilirubin AST ALT Alkaline Phosphatase Creatine Kinase Troponin I Total Protein Albumin Triglycerides Cholesterol Total LDL Cholesterol HDL Cholesterol Urine Color Urine Appearance Urine pH Ur Specific [place] Urine Protein Urine Glucose (UA) Urine Ketones Urine Blood Urine Nitrite Urine Bilirubin Urine Urobilinogen Ur Leukocyte Esterase Urine WBC (Auto) Urine RBC (Auto) Urine Casts (Auto) U Pathogenic Cast Auto U Epithel Cells (Auto) Urine Bacteria (Auto) 10/21/18 10/21/18 14:54 15:27 WBC RBC Hgb Hct MCV MCH MCHC RDW Plt Count MPV Absolute Neuts (auto) Neutrophils % Lymphocytes % Monocytes % Eosinophils % Basophils % Nucleated RBC % PT with INR INR Sodium 142 Potassium 4.9 Chloride 96 L Carbon Dioxide > 45 H Anion Gap 1 L BUN 33.0 H Creatinine 1.0 Est GFR (CKD-EPI)AfAm 60.76 Est GFR (CKD-EPI)NonAf 52.42 POC Glucometer Random Glucose 98 Calcium 9.1 Total Bilirubin 1.3 H AST 23 ALT 14 Alkaline Phosphatase 62 Creatine Kinase 67 Troponin I 0.09 H Total Protein 7.4 Albumin 3.2 L Triglycerides 74 Cholesterol 150 Total LDL Cholesterol 82 HDL Cholesterol 58 Urine Color Yellow Urine Appearance Clear Urine pH 5.0 Ur Specific [place] 1.016 Urine Protein 1+ H Urine Glucose (UA) Negative Urine Ketones Negative Urine Blood Negative Urine Nitrite Negative Urine Bilirubin Negative Urine Urobilinogen 1.0 Ur Leukocyte Esterase Negative Urine WBC (Auto) 0 Urine RBC (Auto) 1 Urine Casts (Auto) 9 U Pathogenic Cast Auto No Result Required. U Epithel Cells (Auto) 0.7 Urine Bacteria (Auto) 4.9 Home Medications Medication Instructions Recorded Insulin Lispro [Humalog] 0 unit SQ TIDCM PRN 03/02/14 Apixaban [Eliquis -] 5 mg PO BID #60 tablet 06/09/17 Insulin (Levemir) [Levemir Vial] 15 unit SQ HS 07/16/17 Furosemide [Lasix] 40 mg PO DAILY #30 tablet 07/20/17 Levothyroxine [Synthroid -] 25 mcg PO DAILY 10/27/17 Atorvastatin Ca [Lipitor] 40 mg PO HS #30 tablet 11/04/17 Pantoprazole Sodium [Protonix -] 40 mg PO DAILY #30 tablet.ec 11/04/17 Metoprolol Succinate [Toprol XL -] 25 mg PO BID 10/21/18 ASSESSMENT AND PLAN: This is an 83 year old woman with a history of COPD, chronic hypoxic and hypecapnic respiratory failure, CAD/PR/stent, PAF, chronic systolic and diastolic heart failure, type 2 DM, hypothyroidism, hyperlipidemia, HTN, PAD, possible seizures who presented to the ED with altered mental status. 1. Possible acute metabolic encephalopathy, possible seizure with post-ictal state - Mental status is currently at baseline per family - Admit to telemetry - Check carotid dopplers, echocardiogram, MRI of brain - Neurology evaluation 2. Chronic hypoxic and hypercapnic respiratory failure secondary to COPD, CHF - Continue oxygen to maintain saturation >90% 3. CAD, history of PR and stent - Continue Toprol XL, Lipitor 4. Chronic systolic and diastolic heart failure - Stable - Continue Lasix 5. Paroxysmal atrial fib - Currently in sinus rhythm - Continue Toprol XL, Eliquis 6. Type 2 DM - Hold Levemir - Fingersticks with Novolog sliding scale 7. Hypothyroidism - Continue Synthroid - Check TSH 8. Hyperlipidemia - Continue Lipitor 9. PAD
--- NOTE | 2018-10-21 19:01 | HP ---
CHIEF COMPLAINT: AMS PCP: Shantanu HISTORY OF PRESENT ILLNESS: Patient is a 83 y/o female with a history of DM, HTN, HLD, AL in 2013, COPD on 2 L, diastolic/systolic CHF, DM and seizures who presents for AMS. Around 10 am this morning omayra haji reports her right side was shaking for about 1-3 minutes, her eyes were darting back and forth and after she did not know the name of her daughter and was very confused. The night before she had a hallucination and though someone was in her bedroom. From 10 am -3pm she was confused and is now at her baseline. Per patients daughter last seizure was when she was hospitalized ( February). Patient was told she does not need any anti seizure medications. Her First stroke was in 2009, she has residual weakness and loss of sensation on the right side. Whenever she has a stroke she has shaking on her right side. She has had hallucinations in the past but only at the hospital. Patient is incontinent at baseline, family unaware if she voided during this event. Patient has no complaints. Patient is compliant with he rmedication. Denies headache, fever, chills, chest pain or any chages in her day to day life. She felt nauseous earlier but it passed. Patient walks with a walker at home. She expresses a lot of hip and back pain from many falls. ER course was notable for: (1)NS (2) (3) Recent Travel: PAST MEDICAL HISTORY: DM, HTN, HLD, AL in 2013, COPD on 2 L, diastolic/ systolic CHF, DM and seizures PAST SURGICAL HISTORY: Social History: Smoking: denies Alcohol: denies Drugs: denies Family History: Allergies Penicillins Allergy (Verified 04/12/18 10:51) Apple juice Allergy (Uncoded 04/12/18 10:51) HOME MEDICATIONS: Home Medications Medication Instructions Recorded Insulin Lispro [Humalog] 0 unit SQ TIDCM PRN 03/02/14 Apixaban [Eliquis -] 5 mg PO BID #60 tablet 06/09/17 Insulin (Levemir) [Levemir Vial] 15 unit SQ HS 07/16/17 Furosemide [Lasix] 40 mg PO DAILY #30 tablet 07/20/17 Levothyroxine [Synthroid -] 25 mcg PO DAILY 10/27/17 Atorvastatin Ca [Lipitor] 40 mg PO HS #30 tablet 11/04/17 Pantoprazole Sodium [Protonix -] 40 mg PO DAILY #30 tablet.ec 11/04/17 Metoprolol Succinate [Toprol XL -] 25 mg PO BID 10/21/18 REVIEW OF SYSTEMS CONSTITUTIONAL: Absent: fever, chills, diaphoresis, generalized weakness, malaise, loss of appetite, weight change HEENT: Absent: rhinorrhea, nasal congestion, throat pain, throat swelling, difficulty swallowing, mouth swelling, ear pain, eye pain, visual changes CARDIOVASCULAR: Absent: chest pain, syncope, palpitations, irregular heart rate, lightheadedness , peripheral edema RESPIRATORY: Absent: cough, shortness of breath, dyspnea with exertion, orthopnea, wheezing, stridor, hemoptysis GASTROINTESTINAL: Absent: abdominal pain, abdominal distension, nausea, vomiting, diarrhea, constipation, melena, hematochezia GENITOURINARY: Absent: dysuria, frequency, urgency, hesitancy, hematuria, flank pain, genital pain MUSCULOSKELETAL: Absent: myalgia, arthralgia, joint swelling, back pain, neck pain SKIN: Absent: rash, itching, pallor ENDOCRINE: Absent: unexplained weight gain, unexplained weight loss, heat intolerance, cold intolerance NEUROLOGIC: Absent: headache, focal weakness or paresthesias, dizziness, unsteady gait, seizure, mental status changes, bladder or bowel incontinence PSYCHIATRIC: Absent: anxiety, depression, suicidal or homicidal ideation, hallucinations. PHYSICAL EXAMINATION Vital Signs - 24 hr 10/21/18 12:17 Temperature 98.1 F Pulse Rate 59 L Respiratory 19 Rate Blood Pressure 133/85 O2 Sat by Pulse 100 Oximetry (%) GENERAL: Awake, alert, and fully oriented, in no acute distress. HEAD: Normal with no signs of trauma. EYES: Pupils equal, round and reactive to light, extraocular movements intact NECK: Normal range of motion LUNGS: Breath sounds equal, clear to auscultation bilaterally. No wheezes, and no crackles. No accessory muscle use. HEART: Regular rate and rhythm, normal S1 and S2 without murmur, rub or gallop. ABDOMEN: Soft, nontender, not distended, normoactive bowel sounds, no guarding, no rebound, no masses. MUSCULOSKELETAL: Normal range of motion at all joints. Pain in joints LOWER EXTREMITIES: 2+ pulses, warm, well-perfused. No calf tenderness. No peripheral edema. NEUROLOGICAL: Cranial nerves II-XII intact. Normal speech. decreased sensation on R side, slight decreased strength on right side 5/5 strength UE, %?% strength pedal extension PSYCHIATRIC: Cooperative. Good eye contact. Appropriate mood and affect. SKIN: Warm, dry, normal turgor, no rashes or lesions noted, normal capillary refill. CBC, BMP 10/21/18 14:54 10/21/18 14:54 ASSESSMENT/PLAN: Patient is a 83 y/o female with a history of DM, HTN, HLD, AL in 2013, COPD on 2 L, diastolic/systolic CHF, DM and seizures who presents for AMS. #AMS - likely postictal 2/2 to seizure, cannot r/o stroke vs TIA - per daughter patient back at her baseline - consult Dr. Bowie - f/u TSH, carotids, echo - seizure precautions - NPO - f/u speech and swallow - Brain MRI ordered, consider EEG - head CT negative #CHF -toprolol, furosemide 40 - f/u ECHO , las echo showed multiple wall hypokinesis, dyastolic/systolic #DM - BGM ACHS - f/u A1c - hold levemir, can resume with feeding, SS #hypothyroidism - continue levothyroxine 25 mcg - f/u TSH #HLD - atorvastatin 40 mg hs - normal lipid profile #paroxysmal afib - RRR on ekg, no changes from last hospitalization - Elliquis #DVT ppx - on elliquis 5 BID FEN - NPO, speech and swallow eval, - patient back to baseline should do bedside swallow - patient on 2L NC at home - consider PT eval, patient uses walker at home Dispo: monitor on stroke unit Visit type - Emergency Visit Emergency Visit: Yes ED Registration Date: 10/21/18 Care time: The patient presented to the Emergency Department on the above date and was hospitalized for further evaluation of their emergent condition. - New Patient This patient is new to me today: Yes Date on this admission: 10/21/18 - Critical Care Critical Care patient: No
[2018-10-21] MEDS ORDERED: FUROSEMIDE 40 MG/4 ML INJECTABLE VIAL ONE (23:33)
[2018-10-21] MEDS ORDERED: FUROSEMIDE 40 MG/4 ML INJECTABLE VIAL IVPUSH ONE (23:35)
--- NOTE | 2018-10-21 23:56 | PN ---
Progress Note (short form) - Note Progress Note: Paged for Pt. transferred from 7W to 4W and noted to be hypoxic to 80% on Venti- mask; BP: 148/57, HR 65, BGM: 136. On Physical exam Pt. noted to be lethargic, poor air flow with diffuse crackles, and edematous in the lower extremities. On chart review Pt. is known to have CHF and COPD (baseline 2L NC), received 2 L NS in ED and CXR with b/l pleural effusion with diffuse congestion, CMP showed HCO3 above 45 x 2(higher than any other recording on previous admissions). Ordered ABG, EKG (as last was poor quality showing QTc: 568), IV Lasix 40mg, Marcos catheter with order to D/c in 16 hours(instructed RN to D/C @ 6 AM), BNP, Duonebs, and strict Is & Os to measure adequate urinary response. ABG: showed pH : 7.19, pCO2: 107. EKG: NSR w/ sinus arrythmias, WPW pattern A? Pt. Likely has CO2 narcosis. We will recheck ABG in 2 hours and assess for adequate response. Changed Daily Lasix to 40mg IV
[2018-10-21 23:57] LABS: ARTERIAL BLD GAS O2 SATURATION 95.5 % (95-98); ARTERIAL BLOOD GAS BASE EXCESS 8.6 meq/l (-2-2); ARTERIAL BLOOD GAS PO2 91.1 mmHg (80-105)
[2018-10-21] MEDS: APIXABAN 5 MG TABLET PO SCH (23:57)
[2018-10-21] MEDS: INSULIN SLIDING SCALE (NOVOLOG) 1 VIAL SQ SCH (23:57)
[2018-10-21] MEDS: metoPROLOL SUCCINATE 25 MG TAB.SR.24H (FP) PO SCH (23:57)
[2018-10-21 23:58] LABS: ALLENS TEST POSITIVE
[2018-10-21 23:59] LABS: ARTERIAL BLOOD GAS PCO2 107 mmHg (35-45); ARTERIAL BLOOD GAS pH 7.19 (7.35-7.45)
[2018-10-22] MEDS: ATORVASTATIN CA 40 MG TABLET (FP) PO SCH ×2 (00:03→21:59)
[2018-10-22] MEDS ORDERED: ALBUTEROL SO4 0.083% IH SOL 2.5 MG/3 ML VIAL.NEB. NEB PRN (00:42)
[2018-10-22] MEDS: ALBUTEROL SO4 2.5/IPRATROPIUM 0.5 INH SOL 3 ML VIAL.NEB. NEB SCH ×6 (01:00→20:38)
[2018-10-22 02:05] LABS: ARTERIAL BLD GAS O2 SATURATION 97.3 % (95-98); ARTERIAL BLOOD GAS BASE EXCESS 10.9 meq/l (-2-2); ARTERIAL BLOOD GAS PO2 99.3 mmHg (80-105); ARTERIAL BLOOD GAS pH 7.28 (7.35-7.45)
[2018-10-22 02:06] LABS: ALLENS TEST POSITIVE
[2018-10-22 02:07] LABS: ARTERIAL BLOOD GAS PCO2 86.7 mmHg (35-45)
[2018-10-22] MEDS: INSULIN SLIDING SCALE (NOVOLOG) 1 VIAL SQ SCH ×4 (06:01→21:59)
[2018-10-22] MEDS ORDERED: LEVOTHYROXINE NA 25 MCG TABLET (FP) PO SCH (07:00)
[2018-10-22 07:53] LABS: ARTERIAL BLD GAS O2 SATURATION 95.8 % (95-98); ARTERIAL BLOOD GAS BASE EXCESS 11.9 meq/l (-2-2); ARTERIAL BLOOD GAS PO2 78.8 mmHg (80-105); ARTERIAL BLOOD GAS pH 7.34 (7.35-7.45)
[2018-10-22 07:58] LABS: BASO % 0.3 % (0-2.0); EOS % 2.7 % (0-4.5); HEMATOCRIT 33.9 % (32.4-45.2); HEMOGLOBIN 10.1 GM/dL (10.7-15.3); LYMPH % 13.8 % (8-40); MCH 20.4 pg (25.7-33.7); MCHC 29.8 g/dl (32.0-36.0); MEAN CELL VOLUME 68.5 fl (80-96); MEAN PLT VOLUME 8.4 fl (7.5-11.1); MONO % 8.6 % (3.8-10.2); NEUT % 74.6 % (42.8-82.8); PLATELET COUNT 246 K/MM3 (134-434); RBC 4.94 M/mm3 (3.60-5.2); RDW 16.5 % (11.6-15.6); WHITE BLOOD COUNT 5.6 K/mm3 (4.0-10.0)
[2018-10-22 08:08] LABS: ALLENS TEST POSITIVE
[2018-10-22 08:10] LABS: ARTERIAL BLOOD GAS PCO2 75.4 mmHg (35-45)
[2018-10-22 08:34] LABS: BILIRUBIN,TOTAL 1.3 mg/dL (0.2-1); BLOOD UREA NITROGEN 30.4 mg/dL (7-18); CALCIUM 8.8 mg/dL (8.5-10.1); CREATININE 0.9 mg/dL (0.55-1.3); MAGNESIUM 2.3 mg/dL (1.8-2.4); PHOSPHOROUS 4.1 mg/dL (2.5-4.9); POTASSIUM 4.5 mmol/L (3.5-5.1); TOT PROT 7.1 g/dl (6.4-8.2)
--- NOTE | 2018-10-22 09:01 | CONSULT ---
Consult - text type - Consultation Consultation Note: Neurology CHIEF COMPLAINT: AMS PCP: Shantanu HISTORY OF PRESENT ILLNESS: 83 y/o female with a history of DM, HTN, HLD, AK in 2013, COPD on 2 L, diastolic /systolic CHF, DM and seizures who presented for AMS. Reportedly at 10 am on morning of admission, patient's reported her right side was shaking for about 1-3 minutes, her eyes were darting back and forth and after she did not know the name of her daughter and was very confused. The night before she had a hallucination and reportedly believed someone was in her bedroom. From 10 am - 3pm on day of admission she was confused but mental status did improve. Reportedly with seizure like event in February. Patient was told she does not need any anti seizure medications. 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 She has had hallucinations in the past but only at the hospital. Patient is incontinent at baseline, family unaware if she voided during this event. Patient has no complaints. Patient is compliant with the medication. On admission, CT head completed and without acute changes. Of note, Blood gas completed and patient with intial PH 7.19, pC02 107, now improved to 75. Is on PAP at bedside and appears at baseline. Does not appear to be CVA, will D/C MRI brain (low yield and will be difficult for her to tolerate). Recommend focus on respiratory mgmt. PAST MEDICAL HISTORY: DM, HTN, HLD, AK in 2013, COPD on 2 L, diastolic/ systolic CHF, DM and seizures PAST SURGICAL HISTORY: Social History: Smoking: denies Alcohol: denies Drugs: denies Family History: Allergies Penicillins Allergy (Verified 04/12/18 10:51) Apple juice Allergy (Uncoded 04/12/18 10:51) HOME MEDICATIONS: Home Medications Medication Instructions Recorded Insulin Lispro [Humalog] 0 unit SQ TIDCM PRN 03/02/14 Apixaban [Eliquis -] 5 mg PO BID #60 tablet 06/09/17 Insulin (Levemir) [Levemir Vial] 15 unit SQ HS 07/16/17 Furosemide [Lasix] 40 mg PO DAILY #30 tablet 07/20/17 Levothyroxine [Synthroid -] 25 mcg PO DAILY 10/27/17 Atorvastatin Ca [Lipitor] 40 mg PO HS #30 tablet 11/04/17 Pantoprazole Sodium [Protonix -] 40 mg PO DAILY #30 tablet.ec 11/04/17 Metoprolol Succinate [Toprol XL -] 25 mg PO BID 10/21/18 Active Medications Albuterol Sulfate (Ventolin 0.083% Nebulizer Soln -) 1 amp NEB Q4H PRN PRN Reason: SHORT OF BREATH/WHEEZING Albuterol/Ipratropium (Duoneb -) 1 amp NEB RQID [facility] Last Admin: 10/22/18 08:16 Dose: 1 amp Apixaban (Eliquis -) 5 mg PO BID [facility] Last Admin: 10/21/18 23:57 Dose: 5 mg Atorvastatin Calcium (Lipitor -) 40 mg PO HS [facility] Last Admin: 10/22/18 00:03 Dose: Not Given Furosemide (Lasix Injection -) 40 mg IVPUSH DAILY [facility] Insulin Aspart (Novolog Vial Sliding Scale -) 1 vial SQ [facility]; Protocol Last Admin: 10/22/18 06:01 Dose: Not Given Levothyroxine Sodium (Synthroid Injection -) 25 mcg IVPUSH DAILY [facility] Metoprolol Succinate (Toprol Xl -) 25 mg PO BID [facility] Last Admin: 10/21/18 23:57 Dose: 25 mg REVIEW OF SYSTEMS CONSTITUTIONAL: Absent: fever, chills, diaphoresis, generalized weakness, malaise, loss of appetite, weight change HEENT: Absent: rhinorrhea, nasal congestion, throat pain, throat swelling, difficulty swallowing, mouth swelling, ear pain, eye pain, visual changes CARDIOVASCULAR: Absent: chest pain, syncope, palpitations, irregular heart rate, lightheadedness , peripheral edema RESPIRATORY: Absent: cough, shortness of breath, dyspnea with exertion, orthopnea, wheezing, stridor, hemoptysis GASTROINTESTINAL: Absent: abdominal pain, abdominal distension, nausea, vomiting, diarrhea, constipation, melena, hematochezia GENITOURINARY: Absent: dysuria, frequency, urgency, hesitancy, hematuria, flank pain, genital pain MUSCULOSKELETAL: Absent: myalgia, arthralgia, joint swelling, back pain, neck pain SKIN: Absent: rash, itching, pallor ENDOCRINE: Absent: unexplained weight gain, unexplained weight loss, heat intolerance, cold intolerance NEUROLOGIC: Absent: headache, focal weakness or paresthesias, dizziness, unsteady gait, seizure, mental status changes, bladder or bowel incontinence PSYCHIATRIC: Absent: anxiety, depression, suicidal or homicidal ideation, hallucinations. PHYSICAL EXAMINATION Vital Signs - 24 hr 10/21/18 12:17 Temperature 98.1 F Pulse Rate 59 L Respiratory 19 Rate Blood Pressure 133/85 O2 Sat by Pulse 100 Oximetry (%) GENERAL: Awake, alert, and fully oriented, in no acute distress. HEAD: Normal with no signs of trauma. EYES: Pupils equal, round and reactive to light, extraocular movements intact NECK: Normal range of motion LUNGS: Breath sounds equal, clear to auscultation bilaterally. No wheezes, and no crackles. No accessory muscle use. HEART: Regular rate and rhythm, normal S1 and S2 without murmur, rub or gallop. ABDOMEN: Soft, nontender, not distended, normoactive bowel sounds, no guarding, no rebound, no masses. MUSCULOSKELETAL: Normal range of motion at all joints. Pain in joints LOWER EXTREMITIES: 2+ pulses, warm, well-perfused. No calf tenderness. No peripheral edema. NEUROLOGICAL: Cranial nerves II-XII intact. Normal speech. decreased sensation on R side, 5-/5 on R, 5/5 on L, gait deferred PSYCHIATRIC: Cooperative. Good eye contact. Appropriate mood and affect. SKIN: Warm, dry, normal turgor, no rashes or lesions noted, normal capillary refill. CBCD WBC 5.6 K/mm3 (4.0-10.0) 10/22/18 05:43 RBC 4.94 M/mm3 (3.60-5.2) 10/22/18 05:43 Hgb 10.1 GM/dL (10.7-15.3) L 10/22/18 05:43 Hct 33.9 % (32.4-45.2) 10/22/18 05:43 MCV 68.5 fl (80-96) L 10/22/18 05:43 MCHC 29.8 g/dl (32.0-36.0) L 10/22/18 05:43 RDW 16.5 % (11.6-15.6) H 10/22/18 05:43 Plt Count 246 K/MM3 (134-434) 10/22/18 05:43 MPV 8.4 fl (7.5-11.1) 10/22/18 05:43 CMP Sodium 145 mmol/L (136-145) 10/22/18 05:43 Potassium 4.5 mmol/L (3.5-5.1) 10/22/18 05:43 Chloride 99 mmol/L (98-107) 10/22/18 05:43 Carbon Dioxide 42 mmol/L (21-32) H 10/22/18 05:43 Anion Gap 4 MMOL/L (8-16) L 10/22/18 05:43 BUN 30.4 mg/dL (7-18) H 10/22/18 05:43 Creatinine 0.9 mg/dL (0.55-1.3) 10/22/18 05:43 Random Glucose 118 mg/dL (74-106) H 10/22/18 05:43 Calcium 8.8 mg/dL (8.5-10.1) 10/22/18 05:43 Total Bilirubin 1.3 mg/dL (0.2-1) H 10/22/18 05:43 AST 14 U/L (15-37) L 10/22/18 05:43 ALT 15 U/L (13-61) 10/22/18 05:43 Alkaline Phosphatase 64 U/L (45-117) 10/22/18 05:43 Total Protein 7.1 g/dl (6.4-8.2) 10/22/18 05:43 Albumin 3.0 g/dl (3.4-5.0) L 10/22/18 05:43 CARDIAC ENZYMES Creatine Kinase 67 U/L (26-192) 10/21/18 14:54 Troponin I 0.09 ng/ml (0.00-0.05) H 10/21/18 19:55 ASSESSMENT/PLAN: 83 y/o female with a history of DM, HTN, HLD, AK in 2013, COPD on 2 L, diastolic /systolic CHF, DM and seizures who presented for AMS. Reportedly at 10 am on morning of admission, patient's reported her right side was shaking for about 1-3 minutes, her eyes were darting back and forth and after she did not know the name of her daughter and was very confused. The night before she had a hallucination and reportedly believed someone was in her bedroom. From 10 am - 3pm on day of admission she was confused but mental status did improve. Reportedly with seizure like event in February. Patient was told she does not need any anti seizure medications. 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 She has had hallucinations in the past but only at the hospital. Patient is incontinent at baseline, family unaware if she voided during this event. Patient has no complaints. Patient is compliant with the medication. On admission, CT head completed and without acute changes. Of note, Blood gas completed and patient with intial PH 7.19, pC02 107, now improved to 75. Is on PAP at bedside and appears at baseline. Does not appear to be CVA, will D/C MRI brain (low yield and will be difficult for her to tolerate). Will check repeat CT head as this would confirm no new infarcts and easier to tolerate for patient. Will check EEG, will not add AED at this time as event possibly 2/2 respiratory derangements. Recommend focus on respiratory mgmt. Continue bedside pap therapy. Monitor blood pressure, maintain normotensive range, continue toprolol, furosemide. Continue Statin 40mg, lipid profile reviewed. On Eliquis for afib, monitor telemetry.
[2018-10-22] MEDS: FUROSEMIDE 40 MG/4 ML INJECTABLE VIAL IVPUSH SCH (09:31)
[2018-10-22] MEDS: APIXABAN 5 MG TABLET PO SCH ×2 (09:39→21:59)
[2018-10-22] MEDS: metoPROLOL SUCCINATE 25 MG TAB.SR.24H (FP) PO SCH ×2 (09:39→21:58)
[2018-10-22] MEDS: LEVOTHYROXINE SODIUM 100 MCG VIAL IVPUSH SCH (09:54)
[2018-10-22] MEDS ORDERED: FUROSEMIDE 40 MG TABLET (FP) PO SCH (10:00)
--- NOTE | 2018-10-22 10:11 | PN ---
Teaching Attending Note Name of Resident: Cristal Huynh ATTENDING PHYSICIAN STATEMENT I saw and evaluated the patient. I reviewed the resident's note and discussed the case with the resident. I agree with the resident's findings and plan as documented with exceptions below. SUBJECTIVE: Patient seen and examined, on bipap, awake, appropriate, complaining about the mask, oriented to self. OBJECTIVE: Vital Signs Period Temp Pulse Resp BP Sys/Gardner Pulse Ox Last 24 Hr 97.4 F-98.1 F 55-108 17-22 118-151/57-85 80-100 Intake & Output 10/19/18 10/20/18 10/21/18 10/22/18 23:59 23:59 23:59 23:59 Intake Total 250 Output Total 1100 Balance -850 Weight 225 lb 225 lb 3.2 oz General: on bipap, awake, no acute distress Neck: soft, supple, neck vein distension, further exam limited given bipap Chest: coarse scattered bilateral rhonchi, decreased air entry Abdomen:soft, NT, ND Extremities: trace pedal Neuro: Awake, oriented to self, complaining about the mask, moves all extremities, further exam limited Home Medications Medication Instructions Recorded Insulin Lispro [Humalog] 0 unit SQ TIDCM PRN 03/02/14 Apixaban [Eliquis -] 5 mg PO BID #60 tablet 06/09/17 Insulin (Levemir) [Levemir Vial] 15 unit SQ HS 07/16/17 Furosemide [Lasix] 40 mg PO DAILY #30 tablet 07/20/17 Levothyroxine [Synthroid -] 25 mcg PO DAILY 10/27/17 Atorvastatin Ca [Lipitor] 40 mg PO HS #30 tablet 11/04/17 Pantoprazole Sodium [Protonix -] 40 mg PO DAILY #30 tablet.ec 11/04/17 Metoprolol Succinate [Toprol XL -] 25 mg PO BID 10/21/18 Active Medications Albuterol Sulfate (Ventolin 0.083% Nebulizer Soln -) 1 amp NEB Q4H PRN PRN Reason: SHORT OF BREATH/WHEEZING Albuterol/Ipratropium (Duoneb -) 1 amp NEB RQID [facility] Last Admin: 10/22/18 08:16 Dose: 1 amp Apixaban (Eliquis -) 5 mg PO BID [facility] Last Admin: 10/22/18 09:39 Dose: 5 mg Atorvastatin Calcium (Lipitor -) 40 mg PO HS [facility] Last Admin: 10/22/18 00:03 Dose: Not Given Furosemide (Lasix Injection -) 40 mg IVPUSH DAILY [facility] Last Admin: 10/22/18 09:31 Dose: 40 mg Insulin Aspart (Novolog Vial Sliding Scale -) 1 vial SQ [facility]; Protocol Last Admin: 10/22/18 06:01 Dose: Not Given Levothyroxine Sodium (Synthroid Injection -) 25 mcg IVPUSH DAILY [facility] Last Admin: 10/22/18 09:54 Dose: 25 mcg Methylprednisolone Sodium Succinate (Solu-Medrol -) 40 mg IVPUSH Q8H-IV RYANN Metoprolol Succinate (Toprol Xl -) 25 mg PO BID [facility] Last Admin: 10/22/18 09:39 Dose: 25 mg Laboratory Results - last 24 hr 10/21/18 10/21/18 10/21/18 14:52 14:54 14:54 WBC 5.5 RBC 4.75 Hgb 9.7 L Hct 32.2 L MCV 67.8 L MCH 20.4 L MCHC 30.2 L RDW 16.4 H Plt Count 248 MPV 7.9 Absolute Neuts (auto) 3.9 Neutrophils % 70.4 D Lymphocytes % 16.3 D Monocytes % 8.7 D Eosinophils % 2.6 D Basophils % 2.0 D Nucleated RBC % 0 PT with INR 14.20 H INR 1.20 H Anticoagulation Therapy Puncture Site ABG pH ABG pCO2 at Pt Temp ABG pO2 at Pt Temp ABG HCO3 ABG O2 Sat (Measured) ABG O2 Content ABG Base Excess Krishan Test O2 Delivery Device Oxygen Flow Rate Vent Mode Vent Rate Mechanical Rate Pressure Support Vent Sodium Potassium Chloride Carbon Dioxide Anion Gap BUN Creatinine Est GFR (CKD-EPI)AfAm Est GFR (CKD-EPI)NonAf POC Glucometer 111 Random Glucose Hemoglobin A1c % Calcium Phosphorus Magnesium Total Bilirubin AST ALT Alkaline Phosphatase Creatine Kinase Troponin I B-Natriuretic Peptide Total Protein Albumin Triglycerides Cholesterol Total LDL Cholesterol HDL Cholesterol TSH Urine Color Urine Appearance Urine pH Ur Specific [place] Urine Protein Urine Glucose (UA) Urine Ketones Urine Blood Urine Nitrite Urine Bilirubin Urine Urobilinogen Ur Leukocyte Esterase Urine WBC (Auto) Urine RBC (Auto) Urine Casts (Auto) U Pathogenic Cast Auto U Epithel Cells (Auto) Urine Bacteria (Auto) Blood Type Antibody Screen 10/21/18 10/21/18 10/21/18 14:54 14:54 15:27 WBC RBC Hgb Hct MCV MCH MCHC RDW Plt Count MPV Absolute Neuts (auto) Neutrophils % Lymphocytes % Monocytes % Eosinophils % Basophils % Nucleated RBC % PT with INR INR Anticoagulation Therapy Puncture Site ABG pH ABG pCO2 at Pt Temp ABG pO2 at Pt Temp ABG HCO3 ABG O2 Sat (Measured) ABG O2 Content ABG Base Excess Krishan Test O2 Delivery Device Oxygen Flow Rate Vent Mode Vent Rate Mechanical Rate Pressure Support Vent Sodium 142 Potassium 4.9 Chloride 96 L Carbon Dioxide > 45 H Anion Gap 1 L BUN 33.0 H Creatinine 1.0 Est GFR (CKD-EPI)AfAm 60.76 Est GFR (CKD-EPI)NonAf 52.42 POC Glucometer Random Glucose 98 Hemoglobin A1c % Calcium 9.1 Phosphorus Magnesium Total Bilirubin 1.3 H AST 23 ALT 14 Alkaline Phosphatase 62 Creatine Kinase 67 Troponin I 0.09 H B-Natriuretic Peptide Total Protein 7.4 Albumin 3.2 L Triglycerides 74 Cholesterol 150 Total LDL Cholesterol 82 HDL Cholesterol 58 TSH Urine Color Yellow Urine Appearance Clear Urine pH 5.0 Ur Specific [place] 1.016 Urine Protein 1+ H Urine Glucose (UA) Negative Urine Ketones Negative Urine Blood Negative Urine Nitrite Negative Urine Bilirubin Negative Urine Urobilinogen 1.0 Ur Leukocyte Esterase Negative Urine WBC (Auto) 0 Urine RBC (Auto) 1 Urine Casts (Auto) 9 U Pathogenic Cast Auto No Result Required. U Epithel Cells (Auto) 0.7 Urine Bacteria (Auto) 4.9 Blood Type A POSITIVE Antibody Screen Negative 10/21/18 10/21/18 10/21/18 19:55 23:28 23:45 WBC RBC Hgb Hct MCV MCH MCHC RDW Plt Count MPV Absolute Neuts (auto) Neutrophils % Lymphocytes % Monocytes % Eosinophils % Basophils % Nucleated RBC % PT with INR INR Anticoagulation Therapy No Result Required. Puncture Site Right radial ABG pH 7.19 L* ABG pCO2 at Pt Temp 107 H* ABG pO2 at Pt Temp 91.1 ABG HCO3 39.5 H ABG O2 Sat (Measured) 95.5 ABG O2 Content No Result Required. ABG Base Excess 8.6 H Krishan Test Positive O2 Delivery Device No Result Required. Oxygen Flow Rate Yes Vent Mode No Result Required. Vent Rate No Result Required. Mechanical Rate No Result Required. Pressure Support Vent No Result Required. Sodium Potassium Chloride Carbon Dioxide Anion Gap BUN Creatinine Est GFR (CKD-EPI)AfAm Est GFR (CKD-EPI)NonAf POC Glucometer 135 Random Glucose Hemoglobin A1c % Calcium Phosphorus Magnesium Total Bilirubin AST ALT Alkaline Phosphatase Creatine Kinase Troponin I 0.09 H B-Natriuretic Peptide Total Protein Albumin Triglycerides Cholesterol Total LDL Cholesterol HDL Cholesterol TSH Urine Color Urine Appearance Urine pH Ur Specific [place] Urine Protein Urine Glucose (UA) Urine Ketones Urine Blood Urine Nitrite Urine Bilirubin Urine Urobilinogen Ur Leukocyte Esterase Urine WBC (Auto) Urine RBC (Auto) Urine Casts (Auto) U Pathogenic Cast Auto U Epithel Cells (Auto) Urine Bacteria (Auto) Blood Type Antibody Screen 10/22/18 10/22/18 10/22/18 01:35 01:50 05:37 WBC RBC Hgb Hct MCV MCH MCHC RDW Plt Count MPV Absolute Neuts (auto) Neutrophils % Lymphocytes % Monocytes % Eosinophils % Basophils % Nucleated RBC % PT with INR INR Anticoagulation Therapy Puncture Site Left radial ABG pH 7.28 L ABG pCO2 at Pt Temp 86.7 H* ABG pO2 at Pt Temp 99.3 ABG HCO3 39.6 H ABG O2 Sat (Measured) 97.3 ABG O2 Content 13.2 L ABG Base Excess 10.9 H Krishan Test Positive O2 Delivery Device Bipap Oxygen Flow Rate 35% Vent Mode S/t Vent Rate 16 Mechanical Rate Pressure Support Vent 14/6 Sodium Potassium Chloride Carbon Dioxide Anion Gap BUN Creatinine Est GFR (CKD-EPI)AfAm Est GFR (CKD-EPI)NonAf POC Glucometer 123 Random Glucose Hemoglobin A1c % Calcium Phosphorus Magnesium Total Bilirubin AST ALT Alkaline Phosphatase Creatine Kinase Troponin I B-Natriuretic Peptide 6159.7 H Total Protein Albumin Triglycerides Cholesterol Total LDL Cholesterol HDL Cholesterol TSH Urine Color Urine Appearance Urine pH Ur Specific [place] Urine Protein Urine Glucose (UA) Urine Ketones Urine Blood Urine Nitrite Urine Bilirubin Urine Urobilinogen Ur Leukocyte Esterase Urine WBC (Auto) Urine RBC (Auto) Urine Casts (Auto) U Pathogenic Cast Auto U Epithel Cells (Auto) Urine Bacteria (Auto) Blood Type Antibody Screen 10/22/18 10/22/18 10/22/18 05:43 05:43 05:43 WBC 5.6 RBC 4.94 Hgb 10.1 L Hct 33.9 MCV 68.5 L MCH 20.4 L MCHC 29.8 L RDW 16.5 H Plt Count 246 MPV 8.4 Absolute Neuts (auto) 4.2 Neutrophils % 74.6 Lymphocytes % 13.8 Monocytes % 8.6 Eosinophils % 2.7 Basophils % 0.3 Nucleated RBC % 0 PT with INR INR Anticoagulation Therapy Puncture Site ABG pH ABG pCO2 at Pt Temp ABG pO2 at Pt Temp ABG HCO3 ABG O2 Sat (Measured) ABG O2 Content ABG Base Excess Krishan Test O2 Delivery Device Oxygen Flow Rate Vent Mode Vent Rate Mechanical Rate Pressure Support Vent Sodium 145 Potassium 4.5 Chloride 99 Carbon Dioxide 42 H Anion Gap 4 L BUN 30.4 H Creatinine 0.9 Est GFR (CKD-EPI)AfAm 69.01 Est GFR (CKD-EPI)NonAf 59.55 POC Glucometer Random Glucose 118 H Hemoglobin A1c % 8.2 H Calcium 8.8 Phosphorus 4.1 Magnesium 2.3 Total Bilirubin 1.3 H AST 14 L ALT 15 Alkaline Phosphatase 64 Creatine Kinase Troponin I B-Natriuretic Peptide Total Protein 7.1 Albumin 3.0 L Triglycerides Cholesterol Total LDL Cholesterol HDL Cholesterol TSH 0.14 L Urine Color Urine Appearance Urine pH Ur Specific [place] Urine Protein Urine Glucose (UA) Urine Ketones Urine Blood Urine Nitrite Urine Bilirubin Urine Urobilinogen Ur Leukocyte Esterase Urine WBC (Auto) Urine RBC (Auto) Urine Casts (Auto) U Pathogenic Cast Auto U Epithel Cells (Auto) Urine Bacteria (Auto) Blood Type Antibody Screen 10/22/18 07:47 WBC RBC Hgb Hct MCV MCH MCHC RDW Plt Count MPV Absolute Neuts (auto) Neutrophils % Lymphocytes % Monocytes % Eosinophils % Basophils % Nucleated RBC % PT with INR INR Anticoagulation Therapy Puncture Site Left radial ABG pH 7.34 L ABG pCO2 at Pt Temp 75.4 H* ABG pO2 at Pt Temp 78.8 L ABG HCO3 39.6 H ABG O2 Sat (Measured) 95.8 ABG O2 Content 13.4 L ABG Base Excess 11.9 H Krishan Test Positive O2 Delivery Device Bipap Oxygen Flow Rate 35% Vent Mode S/t Vent Rate 16 Mechanical Rate Bipap Pressure Support Vent 14/6 Sodium Potassium Chloride Carbon Dioxide Anion Gap BUN Creatinine Est GFR (CKD-EPI)AfAm Est GFR (CKD-EPI)NonAf POC Glucometer Random Glucose Hemoglobin A1c % Calcium Phosphorus Magnesium Total Bilirubin AST ALT Alkaline Phosphatase Creatine Kinase Troponin I B-Natriuretic Peptide Total Protein Albumin Triglycerides Cholesterol Total LDL Cholesterol HDL Cholesterol TSH Urine Color Urine Appearance Urine pH Ur Specific [place] Urine Protein Urine Glucose (UA) Urine Ketones Urine Blood Urine Nitrite Urine Bilirubin Urine Urobilinogen Ur Leukocyte Esterase Urine WBC (Auto) Urine RBC (Auto) Urine Casts (Auto) U Pathogenic Cast Auto U Epithel Cells (Auto) Urine Bacteria (Auto) Blood Type Antibody Screen Telemetry: Afib, now in sinus rhythm 50s CXR from yesterday and today reviewed, improved congestion ASSESSMENT AND PLAN: 83 yof with PMhx of COPD on 2L home oxygen, chronic hypoxic and hypecapnic respiratory failure, CAD/[place]/stent, PAF, chronic systolic and diastolic heart failure, type 2 DM, hypothyroidism, hyperlipidemia, HTN, PAD, possible seizures brought in by family with AMS/increased sleepiness. -Acute hypoxic/hypercapneic respiratory failure -Acute on chronic systolic/diastolic HF exacerbation, ?Etiology -Suspected acute COPD exacerbation -Afib with RVR, now in NSR -AMS, likely toxic metabolic encephalopathy from above, less likely seizure or neurological process -IDDM -CAD/[place]/stent -Hypothyroidism -HLD -HTN -PAD -Possible seizure disorder Plan: Bipap, ABG noted. Lasix 40 mg IV daily, strict I/Os, daily weights, CXR improved. 2D echo Add IV solumedrol. No clinical s/s concerning for infection, hold off on abx and monitor. Cardiology/pulmonary input. Reverted to Sinus on tele. Metoprolol/Eliquis. TSH noted, Check Free T4/T3. Neurology input noted. Repeat CT head and EEG but low suspicion for seizure or neurological process. Cleared bedside swallow eval. Dysphagia puree with nectar. Follow up speech/ swallow eval. ISS, diabetic diet. Hold home levemir Continue statin [id number] on eliquis Dispo pending clinical improvement. PT loc when improved. Anticipate SNF vs home with family. Plan discussed with nursing, all questions answered.
--- NOTE | 2018-10-22 11:33 | CONSULT ---
Admitting History and Physical - Primary Care Physician PCP: Jeri Anderson - Admission History of Present Illness: 83 yof with PMhx of COPD on 2L home oxygen, chronic hypoxic and hypecapnic respiratory failure, CAD/[place]/stent, PAF, chronic systolic and diastolic heart failure, type 2 DM, hypothyroidism, hyperlipidemia, HTN, PAD, possible seizures brought in by family with AMS/increased sleepiness. Pt. transferred from 7W to 4W and noted to be hypoxic to 80% on Venti-mask Selected Entries 10/21/18 10/21/18 10/22/18 12:17 23:30 00:00 Temperature 98.1 F 97.6 F 97.6 F 10/22/18 10/22/18 02:00 09:00 Temperature 97.4 F L 98 F Laboratory Tests 10/21/18 10/22/18 14:54 05:43 WBC 5.5 5.6 Seen by me in May 2017, MBS no aspiration but mildly delayed esophageal emptying. Diet upgraded to soft diet,thin liquid based on MBS, with good tolerance. Recommended to be upright during and after meals. - Past Medical History CALCULATION REVIEWER: Yes: Other (gait dysf) Cardiovascular: Yes: AFIB, CAD, CHF, HTN, [place] Gastrointestinal: Yes: GERD, Hiatal Hernia ...: No Endocrine: Yes: Hypothyroidism - Advance Directives Advance Directives: Yes: DNR - Smoking History Smoking history: Former smoker Have you smoked in the past 12 months: No - Alcohol/Substance Use Hx Alcohol Use: No History of Substance Use: reports: None - Social History ADL: Family Assistance History of Recent Travel: Yes (arrived from [place] 2 months ago) History - Admission Reason For Visit: AMS - Diagnostics X-ray: Report Reviewed CT Scan: Report Reviewed - Hearing Hearing: Normal Hearing Aide: No With Patient: No Speech Evaluation - Communication Primary Language: [place]EN[place] - Speech Characteristics Articulation: Yes: Precise - Swallow Evaluation/Bedside Assessment Current Nutritional Intake: Dysphagia Pureed, [place] Textured Liquids A-P Transit: WFL
--- NOTE | 2018-10-22 11:51 | CON.CARD ---
Cardiology Consult (text) - Consultation Consultation Note: Chief Complaint: AMS History of Present Illness: 83 F admitted with AMS. Pt offers no complaints. No cp sob palps dizzy loc pnd orthopnea le edema. Per charts she had AMS with seizure like activity at home. Now on tx for copd and chf. Sees me for cardio. 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) Cardio/Vascular: Yes: AFIB, CAD, CHF, HTN, [place] Gastrointestinal: Yes: GERD, Hiatal Hernia ...: No Endocrine: Yes: Hypothyroidism - Alcohol/Substance Use Hx Alcohol Use: No History of Substance Use: reports: None - Smoking History Smoking history: Never smoked Have you smoked in the past 12 months: No - Social History ADL: Family Assistance History of Recent Travel: Yes (arrived from [place] 2 months ago) Home Medications - Allergies Allergies/Adverse Reactions: Allergies Allergy/AdvReac Type Severity Reaction Status Date / Time Penicillins Allergy Verified 04/12/18 10:51 Apple juice Allergy Uncoded 04/12/18 10:51 - Home Medications Home Medications Medication Instructions Recorded Insulin Lispro [Humalog] 0 unit SQ TIDCM PRN 03/02/14 Apixaban [Eliquis -] 5 mg PO BID #60 tablet 06/09/17 Insulin (Levemir) [Levemir Vial] 15 unit SQ HS 07/16/17 Furosemide [Lasix] 40 mg PO DAILY #30 tablet 07/20/17 Levothyroxine [Synthroid -] 25 mcg PO DAILY 10/27/17 Atorvastatin Ca [Lipitor] 40 mg PO HS #30 tablet 11/04/17 Pantoprazole Sodium [Protonix -] 40 mg PO DAILY #30 tablet.ec 11/04/17 Metoprolol Succinate [Toprol XL -] 25 mg PO BID 10/21/18 Family Disease History - Family Disease History Family History: Denies (no known cmp) Review of Systems - Review of Systems Constitutional: denies: Chills, Fever Eyes: denies: Eye Pain HENT: denies: Nasal Congestion Neck: denies: Stiffness Cardiovascular: denies: Palpitations Respiratory: denies: Orthopnea, PND Gastrointestinal: denies: Diarrhea, Rectal Bleeding Genitourinary: denies: Burning, Hematuria Musculoskeletal: denies: Muscle Pain Integumentary: denies: Rash Neurological: denies: Numbness,Syncope Endocrine: denies: Excessive Sweating Hematology/Lymphatic: denies: Excessive Bleeding Vital Signs: Vital Signs Period Temp Pulse Resp BP Sys/Gardner Pulse Ox Last 24 Hr 97.4 F-98.1 F 55-108 17-22 118-151/57-85 80-100 Constitutional: Yes: Well Nourished, No Distress, Obese Eyes: No: Sclera Icterus HENT: No: Nasal Congestion Neck: No: Decreased ROM Respiratory: Yes: Regular, Wheezes (diffuse). No: Accessory Muscle Use, Rales Gastrointestinal: Yes: Normal Bowel Sounds. No: Distention, Hepatomegaly, Palpable Mass, Tenderness Cardiovascular: Yes: Regular Rate and Rhythm JVD: No Carotid Bruit: No PMI: Non-Displaced Heart Sounds: Yes: S1, S2. No: Gallop Murmur: No: Systolic Murmur, Diastolic Murmur Extremities: No: Cold, Cyanosis Edema: No Peripheral Pulses: 2+ Left Carotid, 2+ Right Carotid, 2+ Left Doralis Pedis, 2+ Right Dorsalis Pedis Integumentary: No: Jaundice diaphoresis Neurological: Yes: Alert, Oriented Psychiatric: No: Agitated Current Medications Albuterol Sulfate (Ventolin 0.083% Nebulizer Soln -) 1 amp NEB Q4H PRN PRN Reason: SHORT OF BREATH/WHEEZING Albuterol/Ipratropium (Duoneb -) 1 amp NEB RQID [facility] Last Admin: 10/22/18 11:56 Dose: 1 amp Apixaban (Eliquis -) 5 mg PO BID [facility] Last Admin: 10/22/18 09:39 Dose: 5 mg Atorvastatin Calcium (Lipitor -) 40 mg PO HS [facility] Last Admin: 10/22/18 00:03 Dose: Not Given Furosemide (Lasix Injection -) 40 mg IVPUSH DAILY [facility] Last Admin: 10/22/18 09:31 Dose: 40 mg Insulin Aspart (Novolog Vial Sliding Scale -) 1 vial SQ ACHS [facility]; Protocol Last Admin: 10/22/18 11:57 Dose: Not Given Levothyroxine Sodium (Synthroid Injection -) 25 mcg IVPUSH DAILY [facility] Last Admin: 10/22/18 09:54 Dose: 25 mcg Methylprednisolone Sodium Succinate (Solu-Medrol -) 40 mg IVPUSH Q8H-IV RYANN Metoprolol Succinate (Toprol Xl -) 25 mg PO BID [facility] Last Admin: 10/22/18 09:39 Dose: 25 mg - Other Data Labs, Other Data: Laboratory Last Values WBC 5.6 K/mm3 (4.0-10.0) 10/22/18 05:43 RBC 4.94 M/mm3 (3.60-5.2) 10/22/18 05:43 Hgb 10.1 GM/dL (10.7-15.3) L 10/22/18 05:43 Hct 33.9 % (32.4-45.2) 10/22/18 05:43 MCV 68.5 fl (80-96) L 10/22/18 05:43 MCH 20.4 pg (25.7-33.7) L 10/22/18 05:43 MCHC 29.8 g/dl (32.0-36.0) L 10/22/18 05:43 RDW 16.5 % (11.6-15.6) H 10/22/18 05:43 Plt Count 246 K/MM3 (134-434) 10/22/18 05:43 MPV 8.4 fl (7.5-11.1) 10/22/18 05:43 Absolute Neuts (auto) 4.2 K/mm3 (1.5-8.0) 10/22/18 05:43 Neutrophils % 74.6 % (42.8-82.8) 10/22/18 05:43 Lymphocytes % 13.8 % (8-40) 10/22/18 05:43 Monocytes % 8.6 % (3.8-10.2) 10/22/18 05:43 Eosinophils % 2.7 % (0-4.5) 10/22/18 05:43 Basophils % 0.3 % (0-2.0) 10/22/18 05:43 Nucleated RBC % 0 % (0-0) 10/22/18 05:43 PT with INR 14.20 SEC (9.7-13.0) H 10/21/18 14:54 INR 1.20 (0.83-1.09) H 10/21/18 14:54 Anticoagulation Therapy No Result Required. 10/21/18 23:45 Puncture Site Left radial 10/22/18 07:47 ABG pH 7.34 (7.35-7.45) L 10/22/18 07:47 ABG pCO2 at Pt Temp 75.4 mmHg (35-45) H* 10/22/18 07:47 ABG pO2 at Pt Temp 78.8 mmHg (80-105) L 10/22/18 07:47 ABG HCO3 39.6 mmol/L (22-27) H 10/22/18 07:47 ABG O2 Sat (Measured) 95.8 % (95-98) 10/22/18 07:47 ABG O2 Content 13.4 % vol (15-22) L 10/22/18 07:47 ABG Base Excess 11.9 meq/l (-2-2) H 10/22/18 07:47 Krishan Test Positive 10/22/18 07:47 O2 Delivery Device Bipap 10/22/18 07:47 Oxygen Flow Rate 35% 10/22/18 07:47 Vent Mode S/t 10/22/18 07:47 Vent Rate 16 10/22/18 07:47 Mechanical Rate Bipap 10/22/18 07:47 Pressure Support Vent 14/6 10/22/18 07:47 Sodium 145 mmol/L (136-145) 10/22/18 05:43 Potassium 4.5 mmol/L (3.5-5.1) 10/22/18 05:43 Chloride 99 mmol/L (98-107) 10/22/18 05:43 Carbon Dioxide 42 mmol/L (21-32) H 10/22/18 05:43 Anion Gap 4 MMOL/L (8-16) L 10/22/18 05:43 BUN 30.4 mg/dL (7-18) H 10/22/18 05:43 Creatinine 0.9 mg/dL (0.55-1.3) 10/22/18 05:43 Est GFR (CKD-EPI)AfAm 69.01 10/22/18 05:43 Est GFR (CKD-EPI)NonAf 59.55 10/22/18 05:43 POC Glucometer 123 UNITS (80-120) 10/22/18 05:37 Random Glucose 118 mg/dL (74-106) H 10/22/18 05:43 Hemoglobin A1c % 8.2 % (4.2-6.3) H 10/22/18 05:43 Calcium 8.8 mg/dL (8.5-10.1) 10/22/18 05:43 Phosphorus 4.1 mg/dL (2.5-4.9) 10/22/18 05:43 Magnesium 2.3 mg/dL (1.8-2.4) 10/22/18 05:43 Total Bilirubin 1.3 mg/dL (0.2-1) H 10/22/18 05:43 AST 14 U/L (15-37) L 10/22/18 05:43 ALT 15 U/L (13-61) 10/22/18 05:43 Alkaline Phosphatase 64 U/L (45-117) 10/22/18 05:43 Creatine Kinase 67 U/L (26-192) 10/21/18 14:54 Troponin I 0.09 ng/ml (0.00-0.05) H 10/21/18 19:55 B-Natriuretic Peptide 6159.7 pg/ml (5-450) H 10/22/18 01:35 Total Protein 7.1 g/dl (6.4-8.2) 10/22/18 05:43 Albumin 3.0 g/dl (3.4-5.0) L 10/22/18 05:43 Triglycerides 74 mg/dL (0-150) 10/21/18 14:54 Cholesterol 150 mg/dL (50-200) 10/21/18 14:54 Total LDL Cholesterol 82 mg/dL (5-100) 10/21/18 14:54 HDL Cholesterol 58 mg/dL (40-60) 10/21/18 14:54 TSH 0.14 uIU/ml (0.358-3.74) L 10/22/18 05:43 Urine Color Yellow 10/21/18 15:27 Urine Appearance Clear 10/21/18 15:27 Urine pH 5.0 (5.0-8.0) 10/21/18 15:27 Ur Specific [place] 1.016 (1.010-1.035) 10/21/18 15:27 Urine Protein 1+ (NEGATIVE) H 10/21/18 15:27 Urine Glucose (UA) Negative (NEGATIVE) 10/21/18 15:27 Urine Ketones Negative (NEGATIVE) 10/21/18 15:27 Urine Blood Negative (NEGATIVE) 10/21/18 15:27 Urine Nitrite Negative (NEGATIVE) 10/21/18 15:27 Urine Bilirubin Negative (NEGATIVE) 10/21/18 15:27 Urine Urobilinogen 1.0 mg/dL (0.2-1.0) 10/21/18 15:27 Ur Leukocyte Esterase Negative (NEGATIVE) 10/21/18 15:27 Urine WBC (Auto) 0 /hpf (0-5) 10/21/18 15:27 Urine RBC (Auto) 1 /hpf (0-4) 10/21/18 15:27 Urine Casts (Auto) 9 /lpf (0-8) 10/21/18 15:27 U Pathogenic Cast Auto No Result Required. 10/21/18 15:27 U Epithel Cells (Auto) 0.7 /HPF (0-5/HPF) 10/21/18 15:27 Urine Bacteria (Auto) 4.9 /hpf (NEGATIVE) 10/21/18 15:27 Blood Type A POSITIVE 10/21/18 14:54 Antibody Screen Negative 10/21/18 14:54 ecg: sr, old rbbb LHC/PCI 10/2013: mid LAD and Diag YURIY PCI, residual prox LCX 90-95% calcific and only 30-50% dist LM disease cath 07/2018: lm 50, mlad 80 (isr), d1 90, lcx 90, mrca 70 MPI 10/2017 (gillian): no STs. anteroseptal and inferolateral infarcts. no ischemia. EF 38%. echo 06/2018: mild lvh, lvef 40-45, g2dd, apical hk, nl rv, mild mr, mild phtn Echo 04/2017: mild dec lvef, apical hk. nl rv. mod mr, mild-mod tr, mild as, rvsp 40-50 Echo 10/2013 : mildly reduced LVF, apical severe HK, anterior mod HK, mild to mod MR, mild to mod TR, RVSP 50-60 tele: sr cxr: chf a/p: 83 yr old lady with known CAD/pci, chf, HTN, HPL, DM, pad, obesity, pafib (dx 05/2017 when admitted for copd) here with ams. ams, possible seizure: -plans per neuro a.e. copd, PNA: -per hospitalist, on steroids now acute mixed diastolic/systolic CHF: -chronic, mild LV hypokinesis unchanged on recent echo 06/2018 -here with chf and copd. agree with iv lasix. daily wts, chem7. CAD: -borderline trop elevation with flat trend and nl ck, similar to prior baseline values, not c/w acs -pt was in [place] and admitted for chf recently and had cath showing 3vd (cath 07/2018: lm 50, mlad 80 (isr), d1 90, lcx 90, mrca 70) and deemed high risk for cabg, no pci done -given her recurrent chf she may benefit from revascularization with pci after acute issues resolved -cont bb, ac, statin HTN: -cont current meds pafib: -cont bb -cont eliquis 5 bid for AC
--- NOTE | 2018-10-22 11:55 | EKG ---
Test Reason : Blood Pressure : / mmHG Vent. Rate : 077 BPM Atrial Rate : 056 BPM P-R Int : 156 ms QRS Dur : 136 ms QT Int : 502 ms P-R-T Axes : 052 -65 108 degrees QTc Int : 568 ms POOR DATA QUALITY, INTERPRETATION MAY BE ADVERSELY AFFECTED SINUS BRADYCARDIA WITH SINUS ARRHYTHMIA WITH OCCASIONAL and consecutive PREMATURE VENTRICULAR COMPLEXES LEFT AXIS DEVIATION RIGHT BUNDLE BRANCH BLOCK MODERATE VOLTAGE CRITERIA FOR LVH, MAY BE NORMAL VARIANT INFERIOR INFARCT (CITED ON OR BEFORE 27-OCT-2017) ANTERIOR INFARCT (CITED ON OR BEFORE 27-OCT-2017) T WAVE ABNORMALITY, CONSIDER LATERAL ISCHEMIA ABNORMAL ECG WHEN COMPARED WITH ECG OF 13-APR-2018 05:39, PREMATURE VENTRICULAR COMPLEXES ARE NOW PRESENT T WAVE INVERSION MORE EVIDENT IN LATERAL LEADS Confirmed by TAMERA PETTIT, ARACELIS (2013) on 10/22/2018 11:54:55 AM Referred By: Confirmed By:ARACELIS PHILIP MD
--- NOTE | 2018-10-22 11:56 | EKG ---
Test Reason : Blood Pressure : / mmHG Vent. Rate : 063 BPM Atrial Rate : 063 BPM P-R Int : 176 ms QRS Dur : 134 ms QT Int : 452 ms P-R-T Axes : 065 -66 089 degrees QTc Int : 462 ms NORMAL SINUS RHYTHM WITH SINUS ARRHYTHMIA RIGHT BUNDLE BRANCH BLOCK Confirmed by TAMERA PETTIT, ARACELIS (2013) on 10/22/2018 11:55:40 AM Referred By: KEVAN Confirmed By:ARACELIS PHILIP MD
[2018-10-22] MEDS: methylPREDNISolone NA SUCC 40 MG/1 ML VIAL IVPUSH SCH ×2 (12:05→17:30)
--- NOTE | 2018-10-22 13:36 | ECHO ---
Name: TIA LUCERO Exam:Adult Echocardiogram Study Date: 10/22/2018 11:21 AM Age: 83 yrs Reason For Study: STROKE VS TIA Height: 62 in Weight: 215 lb BSA: 2.0 m2 MMode/2D Measurements & Calculations IVSd: 0.86 cm Ao root diam: 2.5 cm LVIDd: 5.4 cm LA dimension: 4.0 cm LVIDs: 3.7 cm LVPWd: 0.94 cm EDV(Teich): 142.2 ml LVOT diam: 2.0 cm ESV(Teich): 59.9 ml Doppler Measurements & Calculations MV E max dimitry: 112.4 cm/sec Ao V2 max: 240.5 cm/sec MV A max dimitry: 86.4 cm/sec Ao max P.3 mmHg MV E/A: 1.3 Ao V2 mean: 173.7 cm/sec MV dec time: 0.35 sec Ao mean P.6 mmHg Ao V2 VTI: 65.4 cm USHA(I,D): 0.76 cm2 USHA(V,D): 0.76 cm2 LV V1 max P.3 mmHg MR max dimitry: 277.3 cm/sec LV V1 mean P.54 mmHg MR max P.8 mmHg LV V1 max: 57.1 cm/sec LV V1 mean: 40.0 cm/sec LV V1 VTI: 15.4 cm SV(LVOT): 49.6 ml TR max dimitry: 194.4 cm/sec TR max P.1 mmHg Med Peak E' Dimitry: 3.1 cm/sec Med E/e': 36.0 Lat Peak E' Dimitry: 4.2 cm/sec Lat E/e': 27.0 Procedure A complete two-dimensional transthoracic echocardiogram was performed (2D, M-mode, Doppler and color flow Doppler). The study was technically difficult with many images being suboptimal in quality. Left Ventricle The left ventricle is normal in size. Left ventricular systolic function is mildly reduced. Ejection Fraction = 45-50%. There is moderate apical wall hypokinesis. Right Ventricle The right ventricle is normal in size and function. Atria Normal left and right atrial size and function. Mitral Valve There is trace mitral regurgitation. Tricuspid Valve No tricuspid regurgitation. There was insufficient TR detected to calculate RV systolic pressure. Aortic Valve Mild valvular aortic stenosis. No aortic regurgitation is present. Pulmonic Valve There is no pulmonic valvular regurgitation. Great Vessels The aortic root is normal size. Pericardium/Pleura There is no pericardial effusion. Interpretation Summary The study was technically difficult with many images being suboptimal in quality. Left ventricular systolic function is mildly reduced. There is moderate apical wall hypokinesis. The right ventricle is normal in size and function. There is trace mitral regurgitation. Mild valvular aortic stenosis. MD Derek Geller 10/22/2018 01:35 PM
--- NOTE | 2018-10-22 13:38 | CON.PULM ---
Consult Consult Specialty:: PULM/CCM Referred by:: MIKI Reason for Consultation:: Abnormal CXR - History of Present Illness Chief Complaint: AMS History of Present Illness: 83 F, DM, HTN, HLD, [place] in 2014, COPD on 2 L, diastolic/systolic CHF, DM and seizures. Admitted via the ER due to AMS. Patient is not able to provide information so the history is garnered from the EMR. Apparently she had right sided shaking for about 1-3 minutes with her eyes rolling back and forth. No travel history or sick contacts. ABG: Acute on chronic hypercapnea / Hypoxemia: Sequential ABGs are improving on NIPPV CXR: increased pulmonary vascular congestion / basilar atelectasis. 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 (gait dysf) Cardio/Vascular: Yes: AFIB, CAD, CHF, HTN, [place] Gastrointestinal: Yes: GERD, Hiatal Hernia ...: No Endocrine: Yes: Hypothyroidism - Alcohol/Substance Use Hx Alcohol Use: No History of Substance Use: reports: None - Smoking History Smoking history: Former smoker Have you smoked in the past 12 months: No - Social History ADL: Family Assistance History of Recent Travel: Yes (arrived from [place] 2 months ago) Home Medications - Allergies Allergies/Adverse Reactions: Allergies Allergy/AdvReac Type Severity Reaction Status Date / Time Penicillins Allergy Verified 04/12/18 10:51 Apple juice Allergy Uncoded 04/12/18 10:51 - Home Medications Home Medications: Ambulatory Orders Insulin Lispro [Humalog] 0 unit SQ TIDCM PRN 03/02/14 Apixaban [Eliquis -] 5 mg PO BID #60 tablet 06/09/17 Insulin (Levemir) [Levemir Vial] 15 unit SQ HS 07/16/17 Furosemide [Lasix] 40 mg PO DAILY #30 tablet 07/20/17 Levothyroxine [Synthroid -] 25 mcg PO DAILY 10/27/17 Atorvastatin Ca [Lipitor] 40 mg PO HS #30 tablet 11/04/17 Pantoprazole Sodium [Protonix -] 40 mg PO DAILY #30 tablet.ec 11/04/17 Metoprolol Succinate [Toprol XL -] 25 mg PO BID 10/21/18 Review of Systems Unable to obtain ROS, reason: not able to provide Physical Exam Vital Sings: Vital Signs Temperature 98 F 10/22/18 09:00 Pulse Rate 108 H 10/22/18 09:00 Respiratory Rate 20 10/22/18 09:00 Blood Pressure 118/70 10/22/18 09:00 O2 Sat by Pulse Oximetry (%) 100 10/22/18 11:55 Constitutional: Yes: No Distress, Obese Eyes: Yes: Conjunctiva Clear HENT: Yes: Atraumatic, Normocephalic Neck: Yes: Supple, Trachea Midline Cardiovascular: Yes: Regular Rate and Rhythm Respiratory: Yes: Diminished, Rales, Rhonchi. No: Accessory Muscle Use, SOB, SOB on Exertion, Stridor, Tachypnea, Wheezes ...Inspection: Yes: WNL ...Clubbing: No Gastrointestinal: Yes: WNL, Normal Bowel Sounds, Abdomen, Obese Renal/: Yes: WNL Musculoskeletal: Yes: WNL Extremities: Yes: WNL Edema: No Peripheral Pulses WNL: Yes Integumentary: Yes: WNL Neurological: Yes: Confusion Labs: CBC, BMP 10/22/18 05:43 10/22/18 05:43 ABG Results ABG pH 7.34 (7.35-7.45) L 10/22/18 07:47 ABG pCO2 at Pt Temp 75.4 mmHg (35-45) H* 10/22/18 07:47 ABG pO2 at Pt Temp 78.8 mmHg (80-105) L 10/22/18 07:47 ABG HCO3 39.6 mmol/L (22-27) H 10/22/18 07:47 ABG O2 Sat (Measured) 95.8 % (95-98) 10/22/18 07:47 ABG O2 Content 13.4 % vol (15-22) L 10/22/18 07:47 ABG Base Excess 11.9 meq/l (-2-2) H 10/22/18 07:47 Imaging - Results Chest X-ray: Report Reviewed, Image Reviewed Problem List - Problems (1) Altered mental status Code(s): R41.82 - ALTERED MENTAL STATUS, UNSPECIFIED Qualifiers: Altered mental status type: unspecified Qualified Code(s): R41.82 - Altered mental status, unspecified (2) ASHD (arteriosclerotic heart disease) Code(s): I25.10 - ATHSCL HEART DISEASE OF [place] CORONARY ARTERY W/O ANG PCTRS (3) Acute hypercapnic respiratory failure Code(s): J96.02 - ACUTE RESPIRATORY FAILURE WITH HYPERCAPNIA (4) Acute on chronic respiratory failure with hypoxemia Code(s): J96.21 - ACUTE AND CHRONIC RESPIRATORY FAILURE WITH HYPOXIA (5) Atrial fibrillation Code(s): I48.91 - UNSPECIFIED ATRIAL FIBRILLATION Qualifiers: Atrial fibrillation type: paroxysmal Qualified Code(s): I48.0 - Paroxysmal atrial fibrillation (6) CAD (coronary artery disease) Code(s): I25.10 - ATHSCL HEART DISEASE OF [place] CORONARY ARTERY W/O ANG PCTRS Qualifiers: Coronary Disease-Associated Artery/Lesion type: [place] artery [place] vs. transplanted heart: [place] heart Associated angina: without angina Qualified Code(s): I25.10 - Atherosclerotic heart disease of [place] coronary artery without angina pectoris (7) CHF (congestive heart failure) Code(s): I50.9 - HEART FAILURE, UNSPECIFIED Qualifiers: Heart failure type: combined systolic and diastolic Heart failure chronicity: chronic Qualified Code(s): I50.42 - Chronic combined systolic ( congestive) and diastolic (congestive) heart failure (8) CHF exacerbation Code(s): I50.9 - HEART FAILURE, UNSPECIFIED Qualifiers: Heart failure type: unspecified Qualified Code(s): I50.9 - Heart failure, unspecified (9) COPD (chronic obstructive pulmonary disease) Code(s): J44.9 - CHRONIC OBSTRUCTIVE PULMONARY DISEASE, UNSPECIFIED Qualifiers: COPD type: unspecified COPD Qualified Code(s): J44.9 - Chronic obstructive pulmonary disease, unspecified (10) COPD exacerbation Code(s): J44.1 - CHRONIC OBSTRUCTIVE PULMONARY DISEASE W (ACUTE) EXACERBATION (11) Diabetes Code(s): E11.9 - TYPE 2 DIABETES MELLITUS WITHOUT COMPLICATIONS Qualifiers: Diabetes mellitus type: type 2 Diabetes mellitus fdc insulin use: with fdc use Diabetes mellitus complication status: with hyperglycemia Qualified Code(s): E11.65 - Type 2 diabetes mellitus with hyperglycemia; 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 of 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 (12) HTN (hypertension) Code(s): I10 - ESSENTIAL (PRIMARY) HYPERTENSION Qualifiers: Hypertension type: essential hypertension Qualified Code(s): I10 - Essential (primary) hypertension (13) History of coronary artery stent placement Code(s): Z95.5 - PRESENCE OF CORONARY ANGIOPLASTY IMPLANT AND GRAFT (14) Hyperlipidemia Code(s): E78.5 - HYPERLIPIDEMIA, UNSPECIFIED Qualifiers: Hyperlipidemia type: pure hypercholesterolemia Qualified Code(s): E78.00 - Pure hypercholesterolemia, unspecified; E78.0 - Pure hypercholesterolemia (15) Respiratory distress Code(s): R06.00 - DYSPNEA, UNSPECIFIED (16) Seizure Code(s): R56.9 - UNSPECIFIED CONVULSIONS Assessment/Plan Continue NIPPV support: ABGs are improving Medrol Lasix Follow I & O Aspiration precautions Continue to monitor off ABX Neuro workup Follow AM ABG BD TX Will follow Thank you. Dr Zarate
--- NOTE | 2018-10-22 13:44 | PN ---
Physical Exam: SUBJECTIVE: Patient seen and examined resting in bed nad. afebrile hemodynamically stable. no acute events. states her sob has improved. denies cp, palpitations, abd pain OBJECTIVE: Vital Signs Period Temp Pulse Resp BP Sys/Gardner Pulse Ox Last 24 Hr 97.4 F-98 F 55-108 17-22 118-151/57-70 80-100 GENERAL: The patient is awake, alert, and fully oriented, in no acute distress. HEAD: Normal with no signs of trauma. EYES: PERRL, extraocular movements intact, sclera anicteric, conjunctiva clear. No ptosis. ENT: moist mucous membranes. NECK: supple. LUNGS: bibasilar crackles HEART: Regular rate and rhythm, S1, S2, systolic murmur grade 2 ABDOMEN: Soft, obese, nontender, nondistended, normoactive bowel sounds, no guarding, no rebound, no masses. EXTREMITIES: 2+ pulses, warm, well-perfused, trace pedal edema. NEUROLOGICAL: Cranial nerves II through XII grossly intact. Normal speech, gait not observed. PSYCH: Normal mood, normal affect. SKIN: Warm, dry Laboratory Results - last 24 hr 10/21/18 10/21/18 10/21/18 14:52 14:54 14:54 WBC 5.5 RBC 4.75 Hgb 9.7 L Hct 32.2 L MCV 67.8 L MCH 20.4 L MCHC 30.2 L RDW 16.4 H Plt Count 248 MPV 7.9 Absolute Neuts (auto) 3.9 Neutrophils % 70.4 D Lymphocytes % 16.3 D Monocytes % 8.7 D Eosinophils % 2.6 D Basophils % 2.0 D Nucleated RBC % 0 PT with INR 14.20 H INR 1.20 H Anticoagulation Therapy Puncture Site ABG pH ABG pCO2 at Pt Temp ABG pO2 at Pt Temp ABG HCO3 ABG O2 Sat (Measured) ABG O2 Content ABG Base Excess Krishan Test O2 Delivery Device Oxygen Flow Rate Vent Mode Vent Rate Mechanical Rate Pressure Support Vent Sodium Potassium Chloride Carbon Dioxide Anion Gap BUN Creatinine Est GFR (CKD-EPI)AfAm Est GFR (CKD-EPI)NonAf POC Glucometer 111 Random Glucose Hemoglobin A1c % Calcium Phosphorus Magnesium Total Bilirubin AST ALT Alkaline Phosphatase Creatine Kinase Troponin I B-Natriuretic Peptide Total Protein Albumin Triglycerides Cholesterol Total LDL Cholesterol HDL Cholesterol TSH Urine Color Urine Appearance Urine pH Ur Specific Epes Urine Protein Urine Glucose (UA) Urine Ketones Urine Blood Urine Nitrite Urine Bilirubin Urine Urobilinogen Ur Leukocyte Esterase Urine WBC (Auto) Urine RBC (Auto) Urine Casts (Auto) U Pathogenic Cast Auto U Epithel Cells (Auto) Urine Bacteria (Auto) Blood Type Antibody Screen 10/21/18 10/21/18 10/21/18 14:54 14:54 15:27 WBC RBC Hgb Hct MCV MCH MCHC RDW Plt Count MPV Absolute Neuts (auto) Neutrophils % Lymphocytes % Monocytes % Eosinophils % Basophils % Nucleated RBC % PT with INR INR Anticoagulation Therapy Puncture Site ABG pH ABG pCO2 at Pt Temp ABG pO2 at Pt Temp ABG HCO3 ABG O2 Sat (Measured) ABG O2 Content ABG Base Excess Krishan Test O2 Delivery Device Oxygen Flow Rate Vent Mode Vent Rate Mechanical Rate Pressure Support Vent Sodium 142 Potassium 4.9 Chloride 96 L Carbon Dioxide > 45 H Anion Gap 1 L BUN 33.0 H Creatinine 1.0 Est GFR (CKD-EPI)AfAm 60.76 Est GFR (CKD-EPI)NonAf 52.42 POC Glucometer Random Glucose 98 Hemoglobin A1c % Calcium 9.1 Phosphorus Magnesium Total Bilirubin 1.3 H AST 23 ALT 14 Alkaline Phosphatase 62 Creatine Kinase 67 Troponin I 0.09 H B-Natriuretic Peptide Total Protein 7.4 Albumin 3.2 L Triglycerides 74 Cholesterol 150 Total LDL Cholesterol 82 HDL Cholesterol 58 TSH Urine Color Yellow Urine Appearance Clear Urine pH 5.0 Ur Specific Epes 1.016 Urine Protein 1+ H Urine Glucose (UA) Negative Urine Ketones Negative Urine Blood Negative Urine Nitrite Negative Urine Bilirubin Negative Urine Urobilinogen 1.0 Ur Leukocyte Esterase Negative Urine WBC (Auto) 0 Urine RBC (Auto) 1 Urine Casts (Auto) 9 U Pathogenic Cast Auto No Result Required. U Epithel Cells (Auto) 0.7 Urine Bacteria (Auto) 4.9 Blood Type A POSITIVE Antibody Screen Negative 10/21/18 10/21/18 10/21/18 19:55 23:28 23:45 WBC RBC Hgb Hct MCV MCH MCHC RDW Plt Count MPV Absolute Neuts (auto) Neutrophils % Lymphocytes % Monocytes % Eosinophils % Basophils % Nucleated RBC % PT with INR INR Anticoagulation Therapy No Result Required. Puncture Site Right radial ABG pH 7.19 L* ABG pCO2 at Pt Temp 107 H* ABG pO2 at Pt Temp 91.1 ABG HCO3 39.5 H ABG O2 Sat (Measured) 95.5 ABG O2 Content No Result Required. ABG Base Excess 8.6 H Krishan Test Positive O2 Delivery Device No Result Required. Oxygen Flow Rate Yes Vent Mode No Result Required. Vent Rate No Result Required. Mechanical Rate No Result Required. Pressure Support Vent No Result Required. Sodium Potassium Chloride Carbon Dioxide Anion Gap BUN Creatinine Est GFR (CKD-EPI)AfAm Est GFR (CKD-EPI)NonAf POC Glucometer 135 Random Glucose Hemoglobin A1c % Calcium Phosphorus Magnesium Total Bilirubin AST ALT Alkaline Phosphatase Creatine Kinase Troponin I 0.09 H B-Natriuretic Peptide Total Protein Albumin Triglycerides Cholesterol Total LDL Cholesterol HDL Cholesterol TSH Urine Color Urine Appearance Urine pH Ur Specific Epes Urine Protein Urine Glucose (UA) Urine Ketones Urine Blood Urine Nitrite Urine Bilirubin Urine Urobilinogen Ur Leukocyte Esterase Urine WBC (Auto) Urine RBC (Auto) Urine Casts (Auto) U Pathogenic Cast Auto U Epithel Cells (Auto) Urine Bacteria (Auto) Blood Type Antibody Screen 10/22/18 10/22/18 10/22/18 01:35 01:50 05:37 WBC RBC Hgb Hct MCV MCH MCHC RDW Plt Count MPV Absolute Neuts (auto) Neutrophils % Lymphocytes % Monocytes % Eosinophils % Basophils % Nucleated RBC % PT with INR INR Anticoagulation Therapy Puncture Site Left radial ABG pH 7.28 L ABG pCO2 at Pt Temp 86.7 H* ABG pO2 at Pt Temp 99.3 ABG HCO3 39.6 H ABG O2 Sat (Measured) 97.3 ABG O2 Content 13.2 L ABG Base Excess 10.9 H Krishan Test Positive O2 Delivery Device Bipap Oxygen Flow Rate 35% Vent Mode S/t Vent Rate 16 Mechanical Rate Pressure Support Vent 14/6 Sodium Potassium Chloride Carbon Dioxide Anion Gap BUN Creatinine Est GFR (CKD-EPI)AfAm Est GFR (CKD-EPI)NonAf POC Glucometer 123 Random Glucose Hemoglobin A1c % Calcium Phosphorus Magnesium Total Bilirubin AST ALT Alkaline Phosphatase Creatine Kinase Troponin I B-Natriuretic Peptide 6159.7 H Total Protein Albumin Triglycerides Cholesterol Total LDL Cholesterol HDL Cholesterol TSH Urine Color Urine Appearance Urine pH Ur Specific Epes Urine Protein Urine Glucose (UA) Urine Ketones Urine Blood Urine Nitrite Urine Bilirubin Urine Urobilinogen Ur Leukocyte Esterase Urine WBC (Auto) Urine RBC (Auto) Urine Casts (Auto) U Pathogenic Cast Auto U Epithel Cells (Auto) Urine Bacteria (Auto) Blood Type Antibody Screen 10/22/18 10/22/18 10/22/18 05:43 05:43 05:43 WBC 5.6 RBC 4.94 Hgb 10.1 L Hct 33.9 MCV 68.5 L MCH 20.4 L MCHC 29.8 L RDW 16.5 H Plt Count 246 MPV 8.4 Absolute Neuts (auto) 4.2 Neutrophils % 74.6 Lymphocytes % 13.8 Monocytes % 8.6 Eosinophils % 2.7 Basophils % 0.3 Nucleated RBC % 0 PT with INR INR Anticoagulation Therapy Puncture Site ABG pH ABG pCO2 at Pt Temp ABG pO2 at Pt Temp ABG HCO3 ABG O2 Sat (Measured) ABG O2 Content ABG Base Excess Krishan Test O2 Delivery Device Oxygen Flow Rate Vent Mode Vent Rate Mechanical Rate Pressure Support Vent Sodium 145 Potassium 4.5 Chloride 99 Carbon Dioxide 42 H Anion Gap 4 L BUN 30.4 H Creatinine 0.9 Est GFR (CKD-EPI)AfAm 69.01 Est GFR (CKD-EPI)NonAf 59.55 POC Glucometer Random Glucose 118 H Hemoglobin A1c % 8.2 H Calcium 8.8 Phosphorus 4.1 Magnesium 2.3 Total Bilirubin 1.3 H AST 14 L ALT 15 Alkaline Phosphatase 64 Creatine Kinase Troponin I B-Natriuretic Peptide Total Protein 7.1 Albumin 3.0 L Triglycerides Cholesterol Total LDL Cholesterol HDL Cholesterol TSH 0.14 L Urine Color Urine Appearance Urine pH Ur Specific Epes Urine Protein Urine Glucose (UA) Urine Ketones Urine Blood Urine Nitrite Urine Bilirubin Urine Urobilinogen Ur Leukocyte Esterase Urine WBC (Auto) Urine RBC (Auto) Urine Casts (Auto) U Pathogenic Cast Auto U Epithel Cells (Auto) Urine Bacteria (Auto) Blood Type Antibody Screen 10/22/18 10/22/18 07:47 11:56 WBC RBC Hgb Hct MCV MCH MCHC RDW Plt Count MPV Absolute Neuts (auto) Neutrophils % Lymphocytes % Monocytes % Eosinophils % Basophils % Nucleated RBC % PT with INR INR Anticoagulation Therapy Puncture Site Left radial ABG pH 7.34 L ABG pCO2 at Pt Temp 75.4 H* ABG pO2 at Pt Temp 78.8 L ABG HCO3 39.6 H ABG O2 Sat (Measured) 95.8 ABG O2 Content 13.4 L ABG Base Excess 11.9 H Krishan Test Positive O2 Delivery Device Bipap Oxygen Flow Rate 35% Vent Mode S/t Vent Rate 16 Mechanical Rate Bipap Pressure Support Vent 14/6 Sodium Potassium Chloride Carbon Dioxide Anion Gap BUN Creatinine Est GFR (CKD-EPI)AfAm Est GFR (CKD-EPI)NonAf POC Glucometer 107 Random Glucose Hemoglobin A1c % Calcium Phosphorus Magnesium Total Bilirubin AST ALT Alkaline Phosphatase Creatine Kinase Troponin I B-Natriuretic Peptide Total Protein Albumin Triglycerides Cholesterol Total LDL Cholesterol HDL Cholesterol TSH Urine Color Urine Appearance Urine pH Ur Specific Epes Urine Protein Urine Glucose (UA) Urine Ketones Urine Blood Urine Nitrite Urine Bilirubin Urine Urobilinogen Ur Leukocyte Esterase Urine WBC (Auto) Urine RBC (Auto) Urine Casts (Auto) U Pathogenic Cast Auto U Epithel Cells (Auto) Urine Bacteria (Auto) Blood Type Antibody Screen Active Medications Generic Name Dose Route Start Last Admin Trade Name Freq PRN Reason Stop Dose Admin Albuterol Sulfate 1 amp 10/22/18 00:42 Ventolin 0.083% Nebulizer Soln - NEB Q4H PRN SHORT OF BREATH/WHEEZING Albuterol/Ipratropium 1 amp 10/22/18 00:41 10/22/18 11:56 Duoneb - NEB 1 amp RQID RYANN Administration Apixaban 5 mg 10/21/18 22:00 10/22/18 09:39 Eliquis - PO 5 mg BID RYANN Administration Atorvastatin Calcium 40 mg 10/21/18 22:00 10/22/18 00:03 Lipitor - PO Not Given HS RYANN Furosemide 40 mg 10/22/18 10:00 10/22/18 09:31 Lasix Injection - IVPUSH 40 mg DAILY RYANN Administration Insulin Aspart 1 vial 10/21/18 22:00 10/22/18 11:57 Novolog Vial Sliding Scale - SQ Not Given ACHS [facility] Protocol Levothyroxine Sodium 25 mcg 10/22/18 10:00 10/22/18 09:54 Synthroid Injection - IVPUSH 25 mcg DAILY RYANN Administration Methylprednisolone Sodium Succinate 40 mg 10/22/18 10:15 10/22/18 12:05 Solu-Medrol - IVPUSH 40 mg Q8H-IV RYANN Administration Metoprolol Succinate 25 mg 10/21/18 22:00 10/22/18 09:39 Toprol Xl - PO 25 mg BID RYANN Administration ASSESSMENT/PLAN: Patient is a 83 y/o female with a history of DM, HTN, HLD, CO in 2013, COPD on 2 L, diastolic/systolic CHF, DM and seizures who presents for AMS. Altered mental status likely due to hypoxia/hypercarbia (resolved) COPD exacerbation CHF mild exacerbation hypothyroid HLD paroxysmal af on NOAC -ABG improved on bipap, cxr improved -iv medrol, nebs -pulm eval appreciated -neuro eval appreciated, unlikely cva or sz, more likely due to hypoxia -swallow eval appreciated dysphagia puree + nectar liquids -cw lasix 40 iv d, daily weights, strict i and o -f/u tte -cardio consult appreciated -cw bb, noac, statin -iss bgm -PT Visit type - Emergency Visit Emergency Visit: Yes ED Registration Date: 10/21/18 Care time: The patient presented to the Emergency Department on the above date and was hospitalized for further evaluation of their emergent condition. - New Patient This patient is new to me today: No - Critical Care Critical Care patient: No - Discharge Referral Referred to [facility] Med P.C.: No
[2018-10-23] MEDS: methylPREDNISolone NA SUCC 40 MG/1 ML VIAL IVPUSH SCH ×3 (01:35→17:29)
[2018-10-23] MEDS: INSULIN SLIDING SCALE (NOVOLOG) 1 VIAL SQ SCH ×4 (06:40→22:54)
[2018-10-23 07:00] LABS: HEMATOCRIT 31.8 % (32.4-45.2); HEMOGLOBIN 9.8 GM/dL (10.7-15.3); MCH 20.5 pg (25.7-33.7); MCHC 30.9 g/dl (32.0-36.0); MEAN CELL VOLUME 66.5 fl (80-96); MEAN PLT VOLUME 8.2 fl (7.5-11.1); RBC 4.78 M/mm3 (3.60-5.2); WHITE BLOOD COUNT 3.7 K/mm3 (4.0-10.0)
[2018-10-23] MEDS: ALBUTEROL SO4 2.5/IPRATROPIUM 0.5 INH SOL 3 ML VIAL.NEB. NEB SCH ×4 (07:00→20:32)
[2018-10-23 07:24] LABS: ARTERIAL BLD GAS O2 SATURATION 85.6 % (95-98); ARTERIAL BLOOD GAS PO2 55.9 mmHg (80-105); ARTERIAL BLOOD GAS pH 7.33 (7.35-7.45)
[2018-10-23 07:27] LABS: ALLENS TEST POSITIVE
[2018-10-23 07:29] LABS: ARTERIAL BLOOD GAS PCO2 78.9 mmHg (35-45)
[2018-10-23 07:49] LABS: BLOOD UREA NITROGEN 35.8 mg/dL (7-18); CALCIUM 8.5 mg/dL (8.5-10.1); PLATELET COUNT 237 K/MM3 (134-434)
--- NOTE | 2018-10-23 08:28 | PN ---
Progress Note (short form) - Note Progress Note: Neurology CHIEF COMPLAINT: AMS PCP: Shantanu HISTORY OF PRESENT ILLNESS: 83 y/o female with a history of DM, HTN, HLD, MD in 2013, COPD on 2 L, diastolic /systolic CHF, DM and seizures who presented for AMS. Reportedly at 10 am on morning of admission, patient's reported her right side was shaking for about 1-3 minutes, her eyes were darting back and forth and after she did not know the name of her daughter and was very confused. The night before she had a hallucination and reportedly believed someone was in her bedroom. From 10 am - 3pm on day of admission she was confused but mental status did improve. Reportedly with seizure like event in February. Patient was told she does not need any anti seizure medications. 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 She has had hallucinations in the past but only at the hospital. Patient is incontinent at baseline, family unaware if she voided during this event. Patient has no complaints. Patient is compliant with the medication. On admission, CT head completed and without acute changes. Of note, Blood gas completed and patient with intial PH 7.19, pC02 107, now improved since. Remains on PAP at bedside and appears at baseline. Repeat CT completed, no acute infarct noted. EEG completed, report pending, informed Dr. Aldridge to request official read. Continues to have SOB at bedside and pulmonary optimization ongoing. Allergies Penicillins Allergy (Verified 04/12/18 10:51) Apple juice Allergy (Uncoded 04/12/18 10:51) HOME MEDICATIONS: Home Medications Medication Instructions Recorded Insulin Lispro [Humalog] 0 unit SQ TIDCM PRN 03/02/14 Apixaban [Eliquis -] 5 mg PO BID #60 tablet 06/09/17 Insulin (Levemir) [Levemir Vial] 15 unit SQ HS 07/16/17 Furosemide [Lasix] 40 mg PO DAILY #30 tablet 07/20/17 Levothyroxine [Synthroid -] 25 mcg PO DAILY 10/27/17 Atorvastatin Ca [Lipitor] 40 mg PO HS #30 tablet 11/04/17 Pantoprazole Sodium [Protonix -] 40 mg PO DAILY #30 tablet.ec 11/04/17 Metoprolol Succinate [Toprol XL -] 25 mg PO BID 10/21/18 Active Medications Albuterol Sulfate (Ventolin 0.083% Nebulizer Soln -) 1 amp NEB Q4H PRN PRN Reason: SHORT OF BREATH/WHEEZING Albuterol/Ipratropium (Duoneb -) 1 amp NEB RQID [facility] Last Admin: 10/23/18 07:00 Dose: 1 amp Apixaban (Eliquis -) 5 mg PO BID [facility] Last Admin: 10/22/18 21:59 Dose: 5 mg Atorvastatin Calcium (Lipitor -) 40 mg PO HS [facility] Last Admin: 10/22/18 21:59 Dose: 40 mg Furosemide (Lasix Injection -) 40 mg IVPUSH DAILY [facility] Last Admin: 10/22/18 09:31 Dose: 40 mg Insulin Aspart (Novolog Vial Sliding Scale -) 1 vial SQ ACHS [facility]; Protocol Last Admin: 10/23/18 06:40 Dose: 8 units Levothyroxine Sodium (Synthroid Injection -) 25 mcg IVPUSH DAILY [facility] Last Admin: 10/22/18 09:54 Dose: 25 mcg Methylprednisolone Sodium Succinate (Solu-Medrol -) 40 mg IVPUSH Q8H-IV [facility] Last Admin: 10/23/18 01:35 Dose: 40 mg Metoprolol Succinate (Toprol Xl -) 25 mg PO BID [facility] Last Admin: 10/22/18 21:58 Dose: 25 mg PHYSICAL EXAMINATION Vital Signs Period Temp Pulse Resp BP Sys/Gardner Pulse Ox Last 24 Hr 98 F-99.0 F 58-108 18-20 111-127/43-70 97-100 GENERAL: Awake, alert, and fully oriented, in no acute distress. HEAD: Normal with no signs of trauma. EYES: Pupils equal, round and reactive to light, extraocular movements intact NECK: Normal range of motion LUNGS: Breath sounds equal, clear to auscultation bilaterally. No wheezes, and no crackles. No accessory muscle use. HEART: Regular rate and rhythm, normal S1 and S2 without murmur, rub or gallop. ABDOMEN: Soft, nontender, not distended, normoactive bowel sounds, no guarding, no rebound, no masses. MUSCULOSKELETAL: Normal range of motion at all joints. Pain in joints LOWER EXTREMITIES: 2+ pulses, warm, well-perfused. No calf tenderness. No peripheral edema. NEUROLOGICAL: Cranial nerves II-XII intact. Normal speech. decreased sensation on R side, 5-/5 on R, 5/5 on L, gait deferred PSYCHIATRIC: Cooperative. Good eye contact. Appropriate mood and affect. SKIN: Warm, dry, normal turgor, no rashes or lesions noted, normal capillary refill. CBCD WBC 3.7 K/mm3 (4.0-10.0) L 10/23/18 06:25 RBC 4.78 M/mm3 (3.60-5.2) 10/23/18 06:25 Hgb 9.8 GM/dL (10.7-15.3) L 10/23/18 06:25 Hct 31.8 % (32.4-45.2) L 10/23/18 06:25 MCV 66.5 fl (80-96) L 10/23/18 06:25 MCHC 30.9 g/dl (32.0-36.0) L 10/23/18 06:25 RDW 16.0 % (11.6-15.6) H 10/23/18 06:25 Plt Count 237 K/MM3 (134-434) 10/23/18 06:25 MPV 8.2 fl (7.5-11.1) 10/23/18 06:25 CMP Sodium 139 mmol/L (136-145) 10/23/18 06:25 Potassium 5.0 mmol/L (3.5-5.1) 10/23/18 06:25 Chloride 96 mmol/L (98-107) L 10/23/18 06:25 Carbon Dioxide 41 mmol/L (21-32) H 10/23/18 06:25 Anion Gap 2 MMOL/L (8-16) L 10/23/18 06:25 BUN 35.8 mg/dL (7-18) H 10/23/18 06:25 Creatinine 1.0 mg/dL (0.55-1.3) 10/23/18 06:25 Random Glucose 330 mg/dL (74-106) H* 10/23/18 06:25 Calcium 8.5 mg/dL (8.5-10.1) 10/23/18 06:25 Total Bilirubin 1.3 mg/dL (0.2-1) H 10/22/18 05:43 AST 14 U/L (15-37) L 10/22/18 05:43 ALT 15 U/L (13-61) 10/22/18 05:43 Alkaline Phosphatase 64 U/L (45-117) 10/22/18 05:43 Total Protein 7.1 g/dl (6.4-8.2) 10/22/18 05:43 Albumin 3.0 g/dl (3.4-5.0) L 10/22/18 05:43 CARDIAC ENZYMES Creatine Kinase 67 U/L (26-192) 10/21/18 14:54 Troponin I 0.09 ng/ml (0.00-0.05) H 10/21/18 19:55 ASSESSMENT/PLAN: 83 y/o female with a history of DM, HTN, HLD, MD in 2013, COPD on 2 L, diastolic /systolic CHF, DM and seizures who presented for AMS. Reportedly at 10 am on morning of admission, patient's reported her right side was shaking for about 1-3 minutes, her eyes were darting back and forth and after she did not know the name of her daughter and was very confused. The night before she had a hallucination and reportedly believed someone was in her bedroom. From 10 am - 3pm on day of admission she was confused but mental status did improve. Reportedly with seizure like event in February. Patient was told she does not need any anti seizure medications. 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 She has had hallucinations in the past but only at the hospital. Patient is incontinent at baseline, family unaware if she voided during this event. Patient has no complaints. Patient is compliant with the medication. On admission, CT head completed and without acute changes. Of note, Blood gas completed and patient with intial PH 7.19, pC02 107, now improved since. Remains on PAP at bedside and appears at baseline. Repeat CT completed, no acute infarct noted. EEG completed, report pending, informed Dr. Aldridge to request official read. Continues to have SOB at bedside and pulmonary optimization ongoing. Will not add AED at this time as event possibly 2/2 respiratory derangements unless EEG shows evidence of epileptiform activity. Continued optimization of respiratory mgmt. Continue bedside pap therapy. Monitor blood pressure, maintain normotensive range, continue toprolol, furosemide. Continue Statin 40mg, lipid profile reviewed. On Eliquis for afib, monitor telemetry.
[2018-10-23] MEDS ORDERED: PT OWN MED DRAWER 7, Y5N ONE (08:38)
--- NOTE | 2018-10-23 09:03 | PN ---
Progress Note, Physician Chief Complaint: somnolent, put back on NIPPV for CO2 retention TELE: NSR, short burst PAF- self limited - Current Medication List Current Medications: Active Medications Albuterol Sulfate (Ventolin 0.083% Nebulizer Soln -) 1 amp NEB Q4H PRN PRN Reason: SHORT OF BREATH/WHEEZING Albuterol/Ipratropium (Duoneb -) 1 amp NEB RQID [facility] Last Admin: 10/23/18 07:00 Dose: 1 amp Apixaban (Eliquis -) 5 mg PO BID [facility] Last Admin: 10/22/18 21:59 Dose: 5 mg Atorvastatin Calcium (Lipitor -) 40 mg PO HS [facility] Last Admin: 10/22/18 21:59 Dose: 40 mg Furosemide (Lasix Injection -) 40 mg IVPUSH DAILY [facility] Last Admin: 10/22/18 09:31 Dose: 40 mg Insulin Aspart (Novolog Vial Sliding Scale -) 1 vial SQ ACHS [facility]; Protocol Last Admin: 10/23/18 06:40 Dose: 8 units Levothyroxine Sodium (Synthroid Injection -) 25 mcg IVPUSH DAILY [facility] Last Admin: 10/22/18 09:54 Dose: 25 mcg Methylprednisolone Sodium Succinate (Solu-Medrol -) 40 mg IVPUSH Q8H-IV [facility] Last Admin: 10/23/18 01:35 Dose: 40 mg Metoprolol Succinate (Toprol Xl -) 25 mg PO BID [facility] Last Admin: 10/22/18 21:58 Dose: 25 mg - Objective Vital Signs: Vital Signs Temperature 98.1 F 10/23/18 06:00 Pulse Rate 67 10/23/18 06:00 Respiratory Rate 18 10/23/18 06:00 Blood Pressure 111/59 L 10/23/18 06:00 O2 Sat by Pulse Oximetry (%) 97 10/23/18 06:47 Constitutional: Yes: No Distress Cardiovascular: Yes: Regular Rate and Rhythm Respiratory: Yes: Other (clear anteriorly, decreased breath sounds at bases. No active wheezing.) Gastrointestinal: Yes: Soft, Abdomen, Obese Edema: No Labs: CBC, BMP 10/23/18 06:25 10/23/18 06:25 INR, PTT INR 1.20 (0.83-1.09) H 10/21/18 14:54 - ....Imaging EKG: Image Reviewed Assessment/Plan A/P: 83 yr old lady with known CAD/pci, chf, HTN, HPL, DM, pad, obesity, pafib (dx 05/2017 when admitted for copd) here with ams. AMS possible seizure: -plans per neuro Acute exacerbation copd, PNA/ CO2 retention: -per hospitalist, on steroids now -NIPPV Acute mixed diastolic/systolic CHF: -chronic, mild LV hypokinesis unchanged on recent echo 06/2018 -here with chf and copd. agree with iv lasix. daily wts, chem7. -repeat CXR today CAD: -borderline trop elevation with flat trend and nl ck, similar to prior baseline values, not c/w acs -pt was in [place] and admitted for chf recently and had cath showing 3vd (cath 07/2018: lm 50, mlad 80 (isr), d1 90, lcx 90, mrca 70) and deemed high risk for cabg, no pci done -given her recurrent chf she may benefit from revascularization with pci after acute issues resolved -cont bb, ac, statin HTN: -cont current meds PAF: -cont bb -cont eliquis 5 bid for AC
[2018-10-23] MEDS: APIXABAN 5 MG TABLET PO SCH ×2 (09:11→22:54)
[2018-10-23] MEDS: FUROSEMIDE 40 MG/4 ML INJECTABLE VIAL IVPUSH SCH (09:11)
[2018-10-23] MEDS: LEVOTHYROXINE SODIUM 100 MCG VIAL IVPUSH SCH (09:12)
[2018-10-23] MEDS: metoPROLOL SUCCINATE 25 MG TAB.SR.24H (FP) PO SCH ×2 (09:12→22:54)
--- NOTE | 2018-10-23 09:42 | PN ---
Progress Note (short form) - Note Progress Note: EEG Report: Abnormal Eeg. Findings are nonspecific and mildly encephalopathic , ther eis no evidence of seizure or subclinical status epilepticus Thanks Kole Cheng.
--- NOTE | 2018-10-23 10:30 | PN ---
Progress Note, Physician History of Present Illness: pulmonary alert,oob-chair,-resp distress - Current Medication List Current Medications: Active Medications Albuterol Sulfate (Ventolin 0.083% Nebulizer Soln -) 1 amp NEB Q4H PRN PRN Reason: SHORT OF BREATH/WHEEZING Albuterol/Ipratropium (Duoneb -) 1 amp NEB RQID [facility] Last Admin: 10/23/18 07:00 Dose: 1 amp Apixaban (Eliquis -) 5 mg PO BID [facility] Last Admin: 10/23/18 09:11 Dose: 5 mg Atorvastatin Calcium (Lipitor -) 40 mg PO HS [facility] Last Admin: 10/22/18 21:59 Dose: 40 mg Furosemide (Lasix Injection -) 40 mg IVPUSH DAILY [facility] Last Admin: 10/23/18 09:11 Dose: 40 mg Insulin Aspart (Novolog Vial Sliding Scale -) 1 vial SQ ACHS [facility]; Protocol Last Admin: 10/23/18 06:40 Dose: 8 units Levothyroxine Sodium (Synthroid Injection -) 25 mcg IVPUSH DAILY [facility] Last Admin: 10/23/18 09:12 Dose: 25 mcg Methylprednisolone Sodium Succinate (Solu-Medrol -) 40 mg IVPUSH Q8H-IV [facility] Last Admin: 10/23/18 09:11 Dose: 40 mg Metoprolol Succinate (Toprol Xl -) 25 mg PO BID [facility] Last Admin: 10/23/18 09:12 Dose: 25 mg - Objective Vital Signs: Vital Signs Temperature 99 F 10/23/18 09:20 Pulse Rate 73 10/23/18 09:20 Respiratory Rate 18 10/23/18 09:20 Blood Pressure 140/70 10/23/18 09:20 O2 Sat by Pulse Oximetry (%) 97 10/23/18 06:47 Constitutional: Yes: Well Nourished, Calm Eyes: Yes: WNL HENT: Yes: WNL Neck: Yes: WNL Cardiovascular: Yes: Pulse Irregular, S1, S2 Respiratory: Yes: Diminished Gastrointestinal: Yes: Normal Bowel Sounds, Soft Extremities: Yes: WNL Edema: No Labs: CBC, BMP 10/23/18 06:25 10/23/18 06:25 INR, PTT INR 1.20 (0.83-1.09) H 10/21/18 14:54 Laboratory Tests 10/23/18 06:30 ABG pH 7.33 L ABG pCO2 at Pt Temp 78.9 H* ABG pO2 at Pt Temp 55.9 L ABG HCO3 40.3 H ABG O2 Sat (Measured) 85.6 L Krishan Test Positive Assessment/Plan Problem List - Problems (1) Altered mental status Code(s): R41.82 - ALTERED MENTAL STATUS, UNSPECIFIED Qualifiers: Altered mental status type: unspecified Qualified Code(s): R41.82 - Altered mental status, unspecified (2) ASHD (arteriosclerotic heart disease) Code(s): I25.10 - ATHSCL HEART DISEASE OF [place] CORONARY ARTERY W/O ANG PCTRS (3) Acute hypercapnic respiratory failure Code(s): J96.02 - ACUTE RESPIRATORY FAILURE WITH HYPERCAPNIA (4) Acute on chronic respiratory failure with hypoxemia Code(s): J96.21 - ACUTE AND CHRONIC RESPIRATORY FAILURE WITH HYPOXIA (5) Atrial fibrillation Code(s): I48.91 - UNSPECIFIED ATRIAL FIBRILLATION Qualifiers: Atrial fibrillation type: paroxysmal Qualified Code(s): I48.0 - Paroxysmal atrial fibrillation (6) CAD (coronary artery disease) Code(s): I25.10 - ATHSCL HEART DISEASE OF [place] CORONARY ARTERY W/O ANG PCTRS Qualifiers: Coronary Disease-Associated Artery/Lesion type: [place] artery [place] vs. transplanted heart: [place] heart Associated angina: without angina Qualified Code(s): I25.10 - Atherosclerotic heart disease of [place] coronary artery without angina pectoris (7) CHF (congestive heart failure) Code(s): I50.9 - HEART FAILURE, UNSPECIFIED Qualifiers: Heart failure type: combined systolic and diastolic Heart failure chronicity: chronic Qualified Code(s): I50.42 - Chronic combined systolic ( congestive) and diastolic (congestive) heart failure (8) CHF exacerbation Code(s): I50.9 - HEART FAILURE, UNSPECIFIED Qualifiers: Heart failure type: unspecified Qualified Code(s): I50.9 - Heart failure, unspecified (9) COPD (chronic obstructive pulmonary disease) Code(s): J44.9 - CHRONIC OBSTRUCTIVE PULMONARY DISEASE, UNSPECIFIED Qualifiers: COPD type: unspecified COPD Qualified Code(s): J44.9 - Chronic obstructive pulmonary disease, unspecified (10) COPD exacerbation Code(s): J44.1 - CHRONIC OBSTRUCTIVE PULMONARY DISEASE W (ACUTE) EXACERBATION (11) Diabetes Code(s): E11.9 - TYPE 2 DIABETES MELLITUS WITHOUT COMPLICATIONS Qualifiers: Diabetes mellitus type: type 2 Diabetes mellitus superintendent terminal insulin use: with superintendent terminal use Diabetes mellitus complication status: with hyperglycemia Qualified Code(s): E11.65 - Type 2 diabetes mellitus with hyperglycemia; Z79.4 - [facility] (current) use of insulin (12) HTN (hypertension) Code(s): I10 - ESSENTIAL (PRIMARY) HYPERTENSION Qualifiers: Hypertension type: essential hypertension Qualified Code(s): I10 - Essential (primary) hypertension (13) History of coronary artery stent placement Code(s): Z95.5 - PRESENCE OF CORONARY ANGIOPLASTY IMPLANT AND GRAFT (14) Hyperlipidemia Code(s): E78.5 - HYPERLIPIDEMIA, UNSPECIFIED Qualifiers: Hyperlipidemia type: pure hypercholesterolemia Qualified Code(s): E78.00 - Pure hypercholesterolemia, unspecified; E78.0 - Pure hypercholesterolemia (15) Respiratory distress Code(s): R06.00 - DYSPNEA, UNSPECIFIED (16) Seizure Code(s): R56.9 - UNSPECIFIED CONVULSIONS 17 ACUTE ON CHRONIC HYPOXEMIC/HYPERCAPNEIC RESPIRATORY FAILURE Assessment/Plan O2 NIPPV as needed F/U ABGs continue Medrol Lasix Aspiration precautions BD TX DR CAAL
--- NOTE | 2018-10-23 11:03 | PN ---
Progress Note, [employer] - Note Progress Note: Selected Entries 10/22/18 10/22/18 10/22/18 00:00 02:00 09:00 Supper Temperature 97.6 F 97.4 F L 98 F 10/22/18 10/23/18 10/23/18 18:00 02:00 06:00 Supper 50% Temperature 99.0 F 98.6 F 98.1 F 10/23/18 09:20 Supper Temperature 99 F Pt reports needing to chew food well to swallow. Tolerating puree/nectar diet. (-) 3 oz water test. Tolerated trial of rafa cracker. Consider Chopped diet, soft, easy to chew, No chicken/meat per pt. RD f/u. Monitor tolerance. MBS if difficulty reported or observed.
--- NOTE | 2018-10-23 11:09 | PN ---
Physical Exam: SUBJECTIVE: Patient seen and examined, on bipap, keeps falling back to sleep, responds to her name, otherwise incoherent speech and minimal participation. OBJECTIVE: Vital Signs Period Temp Pulse Resp BP Sys/Gardner Pulse Ox Last 24 Hr 98.1 F-99.0 F 58-73 18-20 111-140/43-70 97-100 Intake & Output 10/20/18 10/21/18 10/22/18 10/23/18 23:59 23:59 23:59 23:59 Intake Total 550 310 Output Total 400 1100 Balance -400 -550 310 Weight 225 lb 225 lb 3.2 oz GENERAL:on bipap, lethargic, incoherent speech, responds to name, otherwise minimal participation Neck: soft, supple CVS:S1S2 irregular Chest; limited exam from habitus and lack of co-operation Abdomen: soft, obese, NT Extremities:no edema Neuro: responds to name, lethargic, minimal participation, does not follow command, moves all extremities freely to pain Laboratory Results - last 24 hr 10/22/18 10/22/18 10/22/18 10:25 11:56 16:44 WBC RBC Hgb Hct MCV MCH MCHC RDW Plt Count MPV Anticoagulation Therapy Puncture Site ABG pH ABG pCO2 at Pt Temp ABG pO2 at Pt Temp ABG HCO3 ABG O2 Sat (Measured) ABG O2 Content ABG Base Excess Krishan Test O2 Delivery Device Oxygen Flow Rate Vent Mode Vent Rate Mechanical Rate Pressure Support Vent Sodium Potassium Chloride Carbon Dioxide Anion Gap BUN Creatinine Est GFR (CKD-EPI)AfAm Est GFR (CKD-EPI)NonAf POC Glucometer 107 221 Random Glucose Calcium Total T3 63.00 L 10/22/18 10/23/18 10/23/18 21:19 05:16 06:25 WBC 3.7 L RBC 4.78 Hgb 9.8 L Hct 31.8 L MCV 66.5 L MCH 20.5 L MCHC 30.9 L RDW 16.0 H Plt Count 237 MPV 8.2 Anticoagulation Therapy Puncture Site ABG pH ABG pCO2 at Pt Temp ABG pO2 at Pt Temp ABG HCO3 ABG O2 Sat (Measured) ABG O2 Content ABG Base Excess Krishan Test O2 Delivery Device Oxygen Flow Rate Vent Mode Vent Rate Mechanical Rate Pressure Support Vent Sodium Potassium Chloride Carbon Dioxide Anion Gap BUN Creatinine Est GFR (CKD-EPI)AfAm Est GFR (CKD-EPI)NonAf POC Glucometer 407 324 Random Glucose Calcium Total T3 10/23/18 10/23/18 06:25 06:30 WBC RBC Hgb Hct MCV MCH MCHC RDW Plt Count MPV Anticoagulation Therapy No Result Required. Puncture Site Right brachial ABG pH 7.33 L ABG pCO2 at Pt Temp 78.9 H* ABG pO2 at Pt Temp 55.9 L ABG HCO3 40.3 H ABG O2 Sat (Measured) 85.6 L ABG O2 Content 16.5 ABG Base Excess 11.0 H Krishan Test Positive O2 Delivery Device No Result Required. Oxygen Flow Rate Yes Vent Mode No Result Required. Vent Rate No Result Required. Mechanical Rate No Result Required. Pressure Support Vent No Result Required. Sodium 139 Potassium 5.0 Chloride 96 L Carbon Dioxide 41 H Anion Gap 2 L BUN 35.8 H Creatinine 1.0 Est GFR (CKD-EPI)AfAm 60.76 Est GFR (CKD-EPI)NonAf 52.42 POC Glucometer Random Glucose 330 H* Calcium 8.5 Total T3 Active Medications Generic Name Dose Route Start Last Admin Trade Name Freq PRN Reason Stop Dose Admin Albuterol Sulfate 1 amp 10/22/18 00:42 Ventolin 0.083% Nebulizer Soln - NEB Q4H PRN SHORT OF BREATH/WHEEZING Albuterol/Ipratropium 1 amp 10/22/18 00:41 10/23/18 07:00 Duoneb - NEB 1 amp RQID RYANN Administration Apixaban 5 mg 10/21/18 22:00 10/23/18 09:11 Eliquis - PO 5 mg BID RYANN Administration Atorvastatin Calcium 40 mg 10/21/18 22:00 10/22/18 21:59 Lipitor - PO 40 mg HS RYANN Administration Furosemide 40 mg 10/22/18 10:00 10/23/18 09:11 Lasix Injection - IVPUSH 40 mg DAILY RYANN Administration Insulin Aspart 1 vial 10/21/18 22:00 10/23/18 06:40 Novolog Vial Sliding Scale - SQ 8 units ACHS RYANN Administration Protocol Insulin Detemir 15 units 10/23/18 11:30 Levemir Vial SQ 10/23/18 11:31 ONCE ONE Insulin Detemir 15 units 10/24/18 08:00 Levemir Vial SQ DAILY@0800 RYANN Levothyroxine Sodium 25 mcg 10/22/18 10:00 10/23/18 09:12 Synthroid Injection - IVPUSH 25 mcg DAILY [facility]ANN Administration Methylprednisolone Sodium Succinate 40 mg 10/22/18 10:15 10/23/18 09:11 Solu-Medrol - IVPUSH 40 mg Q8H-IV [facility] Administration Metoprolol Succinate 25 mg 10/21/18 22:00 10/23/18 09:12 Toprol Xl - PO 25 mg BID RYANN Administration Microbiology 10/21/18 15:27 Urine - Urine - Catheterized Urine Culture - Final NO GROWTH OBTAINED ASSESSMENT/PLAN: 83 yof with PMhx of COPD on 2L home oxygen, chronic hypoxic and hypecapnic respiratory failure, CAD/OK/stent, PAF, chronic systolic and diastolic heart failure, type 2 DM, hypothyroidism, hyperlipidemia, HTN, PAD, possible seizures brought in by family with AMS/increased sleepiness. -Acute hypoxic/hypercapneic respiratory failure -Acute on chronic systolic/diastolic HF exacerbation, ?Etiology -Suspected acute COPD exacerbation -Afib with RVR, now in NSR -AMS, likely toxic metabolic encephalopathy from above, less likely seizure or neurological process -IDDM -CAD/OK/stent -Hypothyroidism -HLD -HTN -PAD -Possible seizure disorder Plan: Bipap placed this AM. ABG worse. Discussed with RN continue Bipap hs and prn. Continue solumedrol/lasix. Standing/prn nebs, monitor volume status. pulmonary/cardiology input noted 2D echo results reviewed. Metoprolol/Eliquis. TSH noted, follow T4/T3, suspect sick euthyroid, outpatient follow up. Repeat CT head and EEG with no acute concerns or seizures. Neurology input noted, hold off on AEDs Speech/swallow eval noted. ISS, diabetic diet. Resume home levemir at 15 units daily. Continue statin DVTPPX on eliquis Dispo pending clinical improvement. PT loc when improved. Anticipate SNF vs home with family. Plan discussed with nursing, all questions answered. Visit type - Emergency Visit Emergency Visit: Yes ED Registration Date: 10/21/18 Care time: The patient presented to the Emergency Department on the above date and was hospitalized for further evaluation of their emergent condition. - New Patient This patient is new to me today: No - Critical Care Critical Care patient: No - Discharge Referral Referred to [facility] Med P.C.: No
[2018-10-23] MEDS ORDERED: INSULIN (LEVEMIR) 100 UNITS/ML UNITS SQ ONE ×2 (11:18→11:30)
[2018-10-23] MEDS ORDERED: INSULIN (NOVOLOG) ASPART 100 UNITS/ML 10ML VIAL ONE (11:19)
[2018-10-23] MEDS: INSULIN (LEVEMIR) 100 UNITS/ML UNITS SQ SCH (22:54)
[2018-10-23] MEDS: ATORVASTATIN CA 40 MG TABLET (FP) PO SCH (22:54)
[2018-10-24] MEDS: methylPREDNISolone NA SUCC 40 MG/1 ML VIAL IVPUSH SCH ×3 (01:20→21:07)
[2018-10-24] MEDS: INSULIN SLIDING SCALE (NOVOLOG) 1 VIAL SQ SCH ×4 (06:06→21:27)
[2018-10-24 06:55] LABS: BASO % 0.2 % (0-2.0); HEMATOCRIT 33.8 % (32.4-45.2); HEMOGLOBIN 10.2 GM/dL (10.7-15.3); LYMPH % 4.7 % (8-40); MCH 20.3 pg (25.7-33.7); MCHC 30.3 g/dl (32.0-36.0); MEAN CELL VOLUME 67.2 fl (80-96); MEAN PLT VOLUME 8.3 fl (7.5-11.1); MONO % 2.2 % (3.8-10.2); NEUT % 92.9 % (42.8-82.8); RBC 5.02 M/mm3 (3.60-5.2); RDW 16.5 % (11.6-15.6); WHITE BLOOD COUNT 6.5 K/mm3 (4.0-10.0)
[2018-10-24 07:35] LABS: ALBUMIN 3.2 g/dl (3.4-5.0); BILIRUBIN,TOTAL 1.5 mg/dL (0.2-1); BLOOD UREA NITROGEN 44.8 mg/dL (7-18); CALCIUM 9.2 mg/dL (8.5-10.1); CREATININE 1.1 mg/dL (0.55-1.3); MAGNESIUM 2.7 mg/dL (1.8-2.4); PHOSPHOROUS 3.4 mg/dL (2.5-4.9); POTASSIUM 5.2 mmol/L (3.5-5.1); TOT PROT 7.6 g/dl (6.4-8.2)
[2018-10-24] MEDS ORDERED: INSULIN (LEVEMIR) 100 UNITS/ML UNITS SQ SCH (08:00)
[2018-10-24] MEDS: ALBUTEROL SO4 2.5/IPRATROPIUM 0.5 INH SOL 3 ML VIAL.NEB. NEB SCH ×4 (08:06→20:20)
[2018-10-24] MEDS: INSULIN (LEVEMIR) 100 UNITS/ML UNITS SQ SCH ×2 (08:11→21:26)
--- NOTE | 2018-10-24 08:45 | PN ---
Progress Note, Physician Chief Complaint: sob History of Present Illness: coughing. breathing much better. cp only when coughs no leg swelling no papit - Current Medication List Current Medications: Active Medications Albuterol Sulfate (Ventolin 0.083% Nebulizer Soln -) 1 amp NEB Q4H PRN PRN Reason: SHORT OF BREATH/WHEEZING Albuterol/Ipratropium (Duoneb -) 1 amp NEB RQID [facility] Last Admin: 10/23/18 20:32 Dose: 1 amp Apixaban (Eliquis -) 5 mg PO BID [facility] Last Admin: 10/23/18 22:54 Dose: 5 mg Atorvastatin Calcium (Lipitor -) 40 mg PO HS [facility] Last Admin: 10/23/18 22:54 Dose: 40 mg Furosemide (Lasix Injection -) 40 mg IVPUSH DAILY [facility] Last Admin: 10/23/18 09:11 Dose: 40 mg Insulin Aspart (Novolog Vial Sliding Scale -) 1 vial SQ ACHS [facility]; Protocol Last Admin: 10/24/18 06:06 Dose: 10 units Insulin Detemir (Levemir Vial) 10 units SQ Q12H [facility] Last Admin: 10/24/18 08:11 Dose: 10 units Levothyroxine Sodium (Synthroid Injection -) 25 mcg IVPUSH DAILY [facility] Last Admin: 10/23/18 09:12 Dose: 25 mcg Methylprednisolone Sodium Succinate (Solu-Medrol -) 40 mg IVPUSH Q8H-IV [facility] Last Admin: 10/24/18 01:20 Dose: 40 mg Metoprolol Succinate (Toprol Xl -) 25 mg PO BID [facility] Last Admin: 10/23/18 22:54 Dose: 25 mg - Objective Vital Signs: Vital Signs Temperature 98.0 F 10/24/18 08:13 Pulse Rate 60 10/24/18 08:13 Respiratory Rate 20 10/24/18 08:13 Blood Pressure 139/50 L 10/24/18 08:13 O2 Sat by Pulse Oximetry (%) 99 10/24/18 00:03 Constitutional: Yes: Well Nourished, No Distress, Calm Cardiovascular: Yes: Regular Rate and Rhythm, S1, S2. No: JVD, Gallop, Murmur Respiratory: Yes: Regular, Rhonchi, Wheezes. No: Accessory Muscle Use Extremities: No: Cold Edema: No Neurological: Yes: Alert, Oriented Psychiatric: No: Agitated Labs: CBC, BMP 10/24/18 06:35 INR, PTT INR 1.20 (0.83-1.09) H 10/21/18 14:54 Assessment/Plan cath 07/2018: lm 50, mlad 80 (isr), d1 90, lcx 90, mrca 70 echo 06/2018: mild lvh, lvef 40-45, g2dd, apical hk, nl rv, mild mr, mild phtn tele: NSR A/P: 83 yr old lady with known CAD/pci, chf, HTN, HPL, DM, pad, obesity, pafib (dx 05/2017 when admitted for copd) here with ams. AMS possible seizure: -plans per neuro Acute exacerbation copd, PNA/CO2 retention: -steroids, NIPPV per pulm -pt on home O2 Acute mixed diastolic/systolic CHF (EF mid-range 40-45%), mild pulm HTN: -here with likely a.e. copd > mild chf decomp -on lasix 40 qd at home -10/24: repeat CXR 10/23 no signif change, otherwise appears euvolemic. suspect cough with rhonchi/wheezes is primarily airways process here. cont lasix 40 iv qd for now, observe wt trend, labs (bun rising today, ? steroid effect) -home O2 therapy as prior plan CAD: -borderline trop elevation with flat trend and nl ck, similar to prior baseline values, not c/w acs -pt was in [place] and admitted for chf recently and had cath showing 3vd (cath 07/2018: lm 50, mlad 80 (isr), d1 90, lcx 90, mrca 70) and deemed high risk for cabg, no pci done -given her recurrent chf, will re-consider revascularization options with [facility] interventional cardio once HF and copd are stabilized -remains without angina -cont bb, ac, statin PAF: -mostly in sinus here--cont bb -cont eliquis 5 bid for AC HTN: -bp controlled -cont current meds D/C TELE
--- NOTE | 2018-10-24 08:54 | PN ---
Progress Note, Physician History of Present Illness: PULMONARY ALERT,OOB-CHAIR,COMFORTABLE,-RESP DISTRESS - Current Medication List Current Medications: Active Medications Albuterol Sulfate (Ventolin 0.083% Nebulizer Soln -) 1 amp NEB Q4H PRN PRN Reason: SHORT OF BREATH/WHEEZING Albuterol/Ipratropium (Duoneb -) 1 amp NEB RQID [facility] Last Admin: 10/23/18 20:32 Dose: 1 amp Apixaban (Eliquis -) 5 mg PO BID [facility] Last Admin: 10/23/18 22:54 Dose: 5 mg Atorvastatin Calcium (Lipitor -) 40 mg PO HS [facility] Last Admin: 10/23/18 22:54 Dose: 40 mg Furosemide (Lasix Injection -) 40 mg IVPUSH DAILY [facility] Last Admin: 10/23/18 09:11 Dose: 40 mg Insulin Aspart (Novolog Vial Sliding Scale -) 1 vial SQ ACHS [facility]; Protocol Last Admin: 10/24/18 06:06 Dose: 10 units Insulin Detemir (Levemir Vial) 10 units SQ Q12H [facility] Last Admin: 10/24/18 08:11 Dose: 10 units Levothyroxine Sodium (Synthroid Injection -) 25 mcg IVPUSH DAILY [facility] Last Admin: 10/23/18 09:12 Dose: 25 mcg Methylprednisolone Sodium Succinate (Solu-Medrol -) 40 mg IVPUSH Q8H-IV [facility] Last Admin: 10/24/18 01:20 Dose: 40 mg Metoprolol Succinate (Toprol Xl -) 25 mg PO BID [facility] Last Admin: 10/23/18 22:54 Dose: 25 mg - Objective Vital Signs: Vital Signs Temperature 98.0 F 10/24/18 08:13 Pulse Rate 60 10/24/18 08:13 Respiratory Rate 20 10/24/18 08:13 Blood Pressure 139/50 L 10/24/18 08:13 O2 Sat by Pulse Oximetry (%) 99 10/24/18 00:03 Constitutional: Yes: Well Nourished, Calm Eyes: Yes: WNL HENT: Yes: WNL Neck: Yes: WNL Cardiovascular: Yes: Pulse Irregular, S1, S2 Respiratory: Yes: Diminished Gastrointestinal: Yes: Normal Bowel Sounds, Soft Extremities: Yes: WNL Edema: No Labs: CBC, BMP 10/24/18 06:35 INR, PTT INR 1.20 (0.83-1.09) H 10/21/18 14:54 Assessment/Plan Problem List - Problems (1) Altered mental status Code(s): R41.82 - ALTERED MENTAL STATUS, UNSPECIFIED Qualifiers: Altered mental status type: unspecified Qualified Code(s): R41.82 - Altered mental status, unspecified (2) ASHD (arteriosclerotic heart disease) Code(s): I25.10 - ATHSCL HEART DISEASE OF [place] CORONARY ARTERY W/O ANG PCTRS (3) Acute hypercapnic respiratory failure Code(s): J96.02 - ACUTE RESPIRATORY FAILURE WITH HYPERCAPNIA (4) Acute on chronic respiratory failure with hypoxemia Code(s): J96.21 - ACUTE AND CHRONIC RESPIRATORY FAILURE WITH HYPOXIA (5) Atrial fibrillation Code(s): I48.91 - UNSPECIFIED ATRIAL FIBRILLATION Qualifiers: Atrial fibrillation type: paroxysmal Qualified Code(s): I48.0 - Paroxysmal atrial fibrillation (6) CAD (coronary artery disease) Code(s): I25.10 - ATHSCL HEART DISEASE OF [place] CORONARY ARTERY W/O ANG PCTRS Qualifiers: Coronary Disease-Associated Artery/Lesion type: [place] artery [place] vs. transplanted heart: [place] heart Associated angina: without angina Qualified Code(s): I25.10 - Atherosclerotic heart disease of [place] coronary artery without angina pectoris (7) CHF (congestive heart failure) Code(s): I50.9 - HEART FAILURE, UNSPECIFIED Qualifiers: Heart failure type: combined systolic and diastolic Heart failure chronicity: chronic Qualified Code(s): I50.42 - Chronic combined systolic ( congestive) and diastolic (congestive) heart failure (8) CHF exacerbation Code(s): I50.9 - HEART FAILURE, UNSPECIFIED Qualifiers: Heart failure type: unspecified Qualified Code(s): I50.9 - Heart failure, unspecified (9) COPD (chronic obstructive pulmonary disease) Code(s): J44.9 - CHRONIC OBSTRUCTIVE PULMONARY DISEASE, UNSPECIFIED Qualifiers: COPD type: unspecified COPD Qualified Code(s): J44.9 - Chronic obstructive pulmonary disease, unspecified (10) COPD exacerbation Code(s): J44.1 - CHRONIC OBSTRUCTIVE PULMONARY DISEASE W (ACUTE) EXACERBATION (11) Diabetes Code(s): E11.9 - TYPE 2 DIABETES MELLITUS WITHOUT COMPLICATIONS Qualifiers: Diabetes mellitus type: type 2 Diabetes mellitus long term care social worker insulin use: with nursing home use Diabetes mellitus complication status: with hyperglycemia Qualified Code(s): E11.65 - Type 2 diabetes mellitus with hyperglycemia; Z79.4 - assisted (current) use of insulin (12) HTN (hypertension) Code(s): I10 - ESSENTIAL (PRIMARY) HYPERTENSION Qualifiers: Hypertension type: essential hypertension Qualified Code(s): I10 - Essential (primary) hypertension (13) History of coronary artery stent placement Code(s): Z95.5 - PRESENCE OF CORONARY ANGIOPLASTY IMPLANT AND GRAFT (14) Hyperlipidemia Code(s): E78.5 - HYPERLIPIDEMIA, UNSPECIFIED Qualifiers: Hyperlipidemia type: pure hypercholesterolemia Qualified Code(s): E78.00 - Pure hypercholesterolemia, unspecified; E78.0 - Pure hypercholesterolemia (15) Respiratory distress Code(s): R06.00 - DYSPNEA, UNSPECIFIED (16) Seizure Code(s): R56.9 - UNSPECIFIED CONVULSIONS 17 ACUTE ON CHRONIC HYPOXEMIC/HYPERCAPNEIC RESPIRATORY FAILURE Assessment/Plan O2 NIPPV as needed F/U ABG continue Medrol Lasix Aspiration precautions BD TX DR CAAL
[2018-10-24] MEDS: FUROSEMIDE 40 MG/4 ML INJECTABLE VIAL IVPUSH SCH (09:39)
[2018-10-24] MEDS: LEVOTHYROXINE SODIUM 100 MCG VIAL IVPUSH SCH (09:39)
[2018-10-24] MEDS: APIXABAN 5 MG TABLET PO SCH ×2 (09:40→21:26)
[2018-10-24] MEDS: metoPROLOL SUCCINATE 25 MG TAB.SR.24H (FP) PO SCH ×2 (09:40→21:26)
[2018-10-24 09:43] LABS: PLATELET COUNT 257 K/MM3 (134-434)
[2018-10-24 10:28] LABS: ARTERIAL BLD GAS O2 SATURATION 94.9 % (95-98); ARTERIAL BLOOD GAS BASE EXCESS 13.4 meq/l (-2-2); ARTERIAL BLOOD GAS PO2 80.5 mmHg (80-105); ARTERIAL BLOOD GAS pH 7.35 (7.35-7.45)
[2018-10-24 10:30] LABS: ALLENS TEST POSITIVE
[2018-10-24 10:32] LABS: ARTERIAL BLOOD GAS PCO2 76.9 mmHg (35-45)
[2018-10-24 11:41] LABS: ANISOCYTOSIS 2+; MACROCYTOSIS 0; PLATELET ESTIMATE NORMAL
[2018-10-24] MEDS ORDERED: SODIUM POLYSTYRENE SULFONATE 15 GM/60 ML BOTTLE PO ONE (14:14)
--- NOTE | 2018-10-24 14:19 | PN ---
Physical Exam: SUBJECTIVE: Patient seen and examined, more awake, OX3, appropriate. Denies any pain or dyspnea currently. Unsure of the events prior to being admitted to the hospital. OBJECTIVE: Vital Signs Period Temp Pulse Resp BP Sys/Gardner Pulse Ox Last 24 Hr 97.6 F-98.2 F 60-71 18-22 136-159/50-92 96-99 Intake & Output 10/21/18 10/22/18 10/23/18 10/24/18 23:59 23:59 23:59 23:59 Intake Total 550 1020 50 Output Total 400 1100 Balance -400 -550 1020 50 Weight 225 lb 225 lb 3.2 oz 216 lb GENERAL: sitting in chair, awake, OX3, appropriate, no acute distress chest: Improved air entry bilaterally, few basilar rales CVS;S1S2 irregular Abdomen: soft, obese, NT throughout, pos bowel sounds Extremities: trace pedal edema Neuro :AAOX3, facial symmetry, tongue midline, moves all extremities freely, weak but co-operative, power 4/5 generalized Laboratory Results - last 24 hr 10/23/18 10/23/18 10/24/18 16:54 22:52 05:44 WBC RBC Hgb Hct MCV MCH MCHC RDW Plt Count MPV Absolute Neuts (auto) Neutrophils % Neutrophils % (Manual) Band Neutrophils % Lymphocytes % Lymphocytes % (Manual) Monocytes % Monocytes % (Manual) Eosinophils % Eosinophils % (Manual) Basophils % Basophils % (Manual) Myelocytes % (Man) Promyelocytes % (Man) Blast Cells % (Manual) Nucleated RBC % Metamyelocytes Hypochromia Platelet Estimate Polychromasia Poikilocytosis Anisocytosis Microcytosis Macrocytosis Puncture Site ABG pH ABG pCO2 at Pt Temp ABG pO2 at Pt Temp ABG HCO3 ABG O2 Sat (Measured) ABG O2 Content ABG Base Excess Krishan Test Oxygen Flow Rate Sodium Potassium Chloride Carbon Dioxide Anion Gap BUN Creatinine Est GFR (CKD-EPI)AfAm Est GFR (CKD-EPI)NonAf POC Glucometer 450 362 266 Random Glucose Calcium Phosphorus Magnesium Total Bilirubin AST ALT Alkaline Phosphatase Total Protein Albumin 10/24/18 10/24/18 10/24/18 06:35 06:35 10:20 WBC 6.5 RBC 5.02 Hgb 10.2 L Hct 33.8 MCV 67.2 L MCH 20.3 L MCHC 30.3 L RDW 16.5 H Plt Count 257 MPV 8.3 Absolute Neuts (auto) 6.0 Neutrophils % 92.9 H D Neutrophils % (Manual) 96.0 H Band Neutrophils % 0.0 Lymphocytes % 4.7 L D Lymphocytes % (Manual) 4.0 L D Monocytes % 2.2 L Monocytes % (Manual) 0 L D Eosinophils % 0.0 D Eosinophils % (Manual) 0.0 Basophils % 0.2 Basophils % (Manual) 0.0 Myelocytes % (Man) 0 D Promyelocytes % (Man) 0 Blast Cells % (Manual) 0 Nucleated RBC % 0 Metamyelocytes 0 Hypochromia 1+ Platelet Estimate Normal Polychromasia 0 Poikilocytosis 1+ Anisocytosis 2+ Microcytosis 2+ Macrocytosis 0 Puncture Site Left radial ABG pH 7.35 ABG pCO2 at Pt Temp 76.9 H* ABG pO2 at Pt Temp 80.5 ABG HCO3 41.2 H ABG O2 Sat (Measured) 94.9 L ABG O2 Content 13.3 L ABG Base Excess 13.4 H Krishan Test Positive Oxygen Flow Rate 4 Sodium 140 Potassium 5.2 H Chloride 95 L Carbon Dioxide 42 H Anion Gap 3 L BUN 44.8 H Creatinine 1.1 Est GFR (CKD-EPI)AfAm 54.15 Est GFR (CKD-EPI)NonAf 46.72 POC Glucometer Random Glucose 246 H Calcium 9.2 Phosphorus 3.4 Magnesium 2.7 H Total Bilirubin 1.5 H AST 17 ALT 15 Alkaline Phosphatase 63 Total Protein 7.6 Albumin 3.2 L 10/24/18 11:12 WBC RBC Hgb Hct MCV MCH MCHC RDW Plt Count MPV Absolute Neuts (auto) Neutrophils % Neutrophils % (Manual) Band Neutrophils % Lymphocytes % Lymphocytes % (Manual) Monocytes % Monocytes % (Manual) Eosinophils % Eosinophils % (Manual) Basophils % Basophils % (Manual) Myelocytes % (Man) Promyelocytes % (Man) Blast Cells % (Manual) Nucleated RBC % Metamyelocytes Hypochromia Platelet Estimate Polychromasia Poikilocytosis Anisocytosis Microcytosis Macrocytosis Puncture Site ABG pH ABG pCO2 at Pt Temp ABG pO2 at Pt Temp ABG HCO3 ABG O2 Sat (Measured) ABG O2 Content ABG Base Excess Krishan Test Oxygen Flow Rate Sodium Potassium Chloride Carbon Dioxide Anion Gap BUN Creatinine Est GFR (CKD-EPI)AfAm Est GFR (CKD-EPI)NonAf POC Glucometer 333 Random Glucose Calcium Phosphorus Magnesium Total Bilirubin AST ALT Alkaline Phosphatase Total Protein Albumin Active Medications Generic Name Dose Route Start Last Admin Trade Name Freq PRN Reason Stop Dose Admin Albuterol Sulfate 1 amp 10/22/18 00:42 Ventolin 0.083% Nebulizer Soln - NEB Q4H PRN SHORT OF BREATH/WHEEZING Albuterol Sulfate 1 amp 10/24/18 14:15 Ventolin 0.083% Nebulizer Soln - NEB 10/24/18 14:31 Q15M RYANN Albuterol/Ipratropium 1 amp 10/22/18 00:41 10/24/18 12:23 Duoneb - NEB 1 amp RQID RYANN Administration Apixaban 5 mg 10/21/18 22:00 10/24/18 09:40 Eliquis - PO 5 mg BID RYANN Administration Atorvastatin Calcium 40 mg 10/21/18 22:00 10/23/18 22:54 Lipitor - PO 40 mg HS RYANN Administration Furosemide 40 mg 10/22/18 10:00 10/24/18 09:39 Lasix Injection - IVPUSH 40 mg DAILY RYANN Administration Insulin Aspart 1 vial 10/21/18 22:00 10/24/18 11:17 Novolog Vial Sliding Scale - SQ 8 units ACHS RYANN Administration Protocol Insulin Detemir 10 units 10/23/18 20:00 10/24/18 08:11 Levemir Vial SQ 10 units Q12H RYANN Administration Levothyroxine Sodium 25 mcg 10/22/18 10:00 10/24/18 09:39 Synthroid Injection - IVPUSH 25 mcg DAILY RYANN Administration Methylprednisolone Sodium Succinate 40 mg 10/22/18 10:15 10/24/18 09:40 Solu-Medrol - IVPUSH 40 mg Q8H-IV RYANN Administration Metoprolol Succinate 25 mg 10/21/18 22:00 10/24/18 09:40 Toprol Xl - PO 25 mg BID RYANN Administration Sodium Polystyrene Sulfonate 30 gm 10/24/18 14:14 Kayexalate - PO 10/24/18 14:15 ONCE ONE Microbiology 10/21/18 15:27 Urine - Urine - Catheterized Urine Culture - Final NO GROWTH OBTAINED ASSESSMENT/PLAN: 83 yof with PMhx of COPD on 2L home oxygen, chronic hypoxic and hypecapnic respiratory failure, CAD/WI/stent, PAF, chronic systolic and diastolic heart failure, type 2 DM, hypothyroidism, hyperlipidemia, HTN, PAD, possible seizures brought in by family with AMS/increased sleepiness. -Acute hypoxic/hypercapneic respiratory failure -Acute on chronic systolic/diastolic HF exacerbation, ?Etiology -Suspected acute COPD exacerbation -Afib with RVR, mostly in NSR now -AMS, likely toxic metabolic encephalopathy from above, less likely seizure or neurological process -IDDM -CAD/WI/stent -Hypothyroidism -HLD -HTN -PAD -Possible seizure disorder Plan: ABG noted. Bipap prn and hs. Slow medrol taper. standing and prn nebs. Cardiology input noted. 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 Follow up if candidate for PCI. 2D echo results reviewed. Lasix 40 mg IV daily. Metoprolol/statin/eliquis. K noted, kayexalate x 1, albuterol nebs x 2, monitor for now. TSH noted, follow T4/T3, suspect sick euthyroid, outpatient follow up. Repeat CT head and EEG with no acute concerns or seizures. Neurology input noted, hold off on AEDs Speech/swallow eval noted. ISS, diabetic diet. Hyperglycemic likely steroid induced. Increase levemir to 10 units BID. DVTPPX on eliquis Dispo PT eval, OOB, Anticipate SNF vs home with family in 72 hours if continues to improve. Plan discussed with nursing, all questions answered. Visit type - Emergency Visit Emergency Visit: Yes ED Registration Date: 10/21/18 Care time: The patient presented to the Emergency Department on the above date and was hospitalized for further evaluation of their emergent condition. - New Patient This patient is new to me today: No - Critical Care Critical Care patient: No - Discharge Referral Referred to [facility] No
[2018-10-24] MEDS: ALBUTEROL SO4 0.083% IH SOL 2.5 MG/3 ML VIAL.NEB. NEB SCH ×2 (14:24→15:24)
[2018-10-24] MEDS ORDERED: MAG HYDROX/AL HYDROX/SIMETH 30 ML UNIT-DOSE CUP PO PRN (17:09)
[2018-10-24] MEDS: PANTOPRAZOLE 40 MG TABLET (FP) PO SCH (17:17)
[2018-10-24] MEDS: ATORVASTATIN CA 40 MG TABLET (FP) PO SCH (21:26)
[2018-10-24] MEDS ORDERED: INSULIN (NOVOLOG) ASPART 100 UNITS/ML 10ML VIAL SQ ONE (23:37)
[2018-10-25 02:08] LABS: BLOOD UREA NITROGEN 46.3 mg/dL (7-18); CALCIUM 8.8 mg/dL (8.5-10.1); CREATININE 1.1 mg/dL (0.55-1.3); POTASSIUM 4.5 mmol/L (3.5-5.1)
[2018-10-25 07:03] LABS: BLOOD UREA NITROGEN 42.6 mg/dL (7-18); CALCIUM 9.1 mg/dL (8.5-10.1); MAGNESIUM 2.6 mg/dL (1.8-2.4); PHOSPHOROUS 2.7 mg/dL (2.5-4.9)
[2018-10-25 07:07] LABS: BASO % 0.2 % (0-2.0); HEMATOCRIT 33.7 % (32.4-45.2); HEMOGLOBIN 10.4 GM/dL (10.7-15.3); MCH 20.6 pg (25.7-33.7); MCHC 30.8 g/dl (32.0-36.0); MEAN CELL VOLUME 66.8 fl (80-96); MEAN PLT VOLUME 8.7 fl (7.5-11.1); MONO % 7.4 % (3.8-10.2); NEUT % 88.4 % (42.8-82.8); RBC 5.04 M/mm3 (3.60-5.2); RDW 16.5 % (11.6-15.6); WHITE BLOOD COUNT 9.8 K/mm3 (4.0-10.0)
[2018-10-25] MEDS: INSULIN (LEVEMIR) 100 UNITS/ML UNITS SQ SCH ×2 (07:14→21:47)
[2018-10-25] MEDS: INSULIN SLIDING SCALE (NOVOLOG) 1 VIAL SQ SCH ×4 (07:14→21:49)
[2018-10-25 07:45] LABS: ARTERIAL BLD GAS O2 SATURATION 98.7 % (95-98); ARTERIAL BLOOD GAS BASE EXCESS 17.5 meq/l (-2-2); ARTERIAL BLOOD GAS PO2 111 mmHg (80-105); ARTERIAL BLOOD GAS pH 7.39 (7.35-7.45)
[2018-10-25 07:48] LABS: ALLENS TEST POSITIVE
[2018-10-25 07:49] LABS: ARTERIAL BLOOD GAS PCO2 76.3 mmHg (35-45)
[2018-10-25] MEDS: ALBUTEROL SO4 2.5/IPRATROPIUM 0.5 INH SOL 3 ML VIAL.NEB. NEB SCH ×4 (08:00→20:30)
[2018-10-25] MEDS: methylPREDNISolone NA SUCC 40 MG/1 ML VIAL IVPUSH SCH ×2 (08:07→21:47)
[2018-10-25 08:31] LABS: PLATELET COUNT 236 K/MM3 (134-434)
--- NOTE | 2018-10-25 08:42 | PN ---
Progress Note, Physician Chief Complaint: sob History of Present Illness: denies sob, has bipap on denies cp no leg swelling still coughing - Current Medication List Current Medications: Active Medications Al Hydroxide/Mg Hydroxide (Mylanta Oral Suspension -) 30 ml PO Q6H PRN PRN Reason: DYSPEPSIA Last Admin: 10/24/18 17:17 Dose: 30 ml Albuterol Sulfate (Ventolin 0.083% Nebulizer Soln -) 1 amp NEB Q4H PRN PRN Reason: SHORT OF BREATH/WHEEZING Albuterol/Ipratropium (Duoneb -) 1 amp NEB RQID [facility] Last Admin: 10/24/18 20:20 Dose: 1 amp Apixaban (Eliquis -) 5 mg PO BID [facility] Last Admin: 10/24/18 21:26 Dose: 5 mg Atorvastatin Calcium (Lipitor -) 40 mg PO HS [facility] Last Admin: 10/24/18 21:26 Dose: 40 mg Furosemide (Lasix Injection -) 40 mg IVPUSH DAILY [facility] Last Admin: 10/24/18 09:39 Dose: 40 mg Insulin Aspart (Novolog Vial Sliding Scale -) 1 vial SQ [facility]; Protocol Last Admin: 10/25/18 07:14 Dose: 6 units Insulin Detemir (Levemir Vial) 15 units SQ BID@0700,2200 [facility] Last Admin: 10/25/18 07:14 Dose: 15 units Levothyroxine Sodium (Synthroid Injection -) 25 mcg IVPUSH DAILY [facility] Last Admin: 10/24/18 09:39 Dose: 25 mcg Methylprednisolone Sodium Succinate (Solu-Medrol -) 40 mg IVPUSH Q12H [facility] Last Admin: 10/25/18 08:07 Dose: 40 mg Metoprolol Succinate (Toprol Xl -) 25 mg PO BID [facility] Last Admin: 10/24/18 21:26 Dose: 25 mg Pantoprazole Sodium (Protonix -) 40 mg PO DAILY [facility] Last Admin: 10/24/18 17:17 Dose: 40 mg - Objective Vital Signs: Vital Signs Temperature 98.6 F 10/25/18 06:00 Pulse Rate 68 10/25/18 06:00 Respiratory Rate 20 10/25/18 08:11 Blood Pressure 139/68 10/25/18 06:00 O2 Sat by Pulse Oximetry (%) 97 10/25/18 08:11 Constitutional: Yes: No Distress, Calm, Obese Cardiovascular: Yes: Regular Rate and Rhythm, S1, S2. No: Gallop, Murmur Respiratory: Yes: Regular, CTA Bilaterally. No: Accessory Muscle Use, Rales, Wheezes Extremities: No: Cold Edema: No Neurological: Yes: Alert, Oriented Psychiatric: No: Agitated Labs: CBC, BMP 10/25/18 06:15 10/25/18 06:15 INR, PTT INR 1.20 (0.83-1.09) H 10/21/18 14:54 Assessment/Plan cath 07/2018: lm 50, mlad 80 (isr), d1 90, lcx 90, mrca 70 echo 06/2018: mild lvh, lvef 40-45, g2dd, apical hk, nl rv, mild mr, mild phtn tele: NSR A/P: 83 yr old lady with known CAD/pci, chf, HTN, HPL, DM, pad, obesity, pafib (dx 05/2017 when admitted for copd) here with ams. AMS possible seizure: -plans per neuro Acute exacerbation copd, PNA/CO2 retention: -steroids, NIPPV per pulm -pt on home O2 Acute mixed diastolic/systolic CHF (EF mid-range 40-45%), mild pulm HTN: -here with likely a.e. copd > mild chf decomp -on lasix 40 qd at home -10/24: repeat CXR 10/23 no signif change, otherwise appears euvolemic. suspect cough with rhonchi/wheezes is primarily airways process here. cont lasix 40 iv qd for now, observe wt trend, labs (bun rising today, ? steroid effect) -10/25: wt stable. renal fxn stable. continue iv lasix while pt on steroids, to avoid fluid retention. -home O2 therapy as prior plan CAD: -borderline trop elevation with flat trend and nl ck, similar to prior baseline values, not c/w acs -pt was in [place] and admitted for chf recently and had cath showing 3vd (cath 07/2018: lm 50, mlad 80 (isr), d1 90, lcx 90, mrca 70) and deemed high risk for cabg, no pci done -given her recurrent chf, will re-consider revascularization options with [facility] intervention[facility] cardio once HF and copd are stabilized -remains without angina -cont bb, ac, statin PAF: -mostly in sinus here--cont bb -cont eliquis 5 bid for AC HTN: -bp controlled -cont current meds
--- NOTE | 2018-10-25 08:55 | PN ---
Progress Note, Physician History of Present Illness: pulmonary alert,oob-chair,-resp distress - Current Medication List Current Medications: Active Medications Al Hydroxide/Mg Hydroxide (Mylanta Oral Suspension -) 30 ml PO Q6H PRN PRN Reason: DYSPEPSIA Last Admin: 10/24/18 17:17 Dose: 30 ml Albuterol Sulfate (Ventolin 0.083% Nebulizer Soln -) 1 amp NEB Q4H PRN PRN Reason: SHORT OF BREATH/WHEEZING Albuterol/Ipratropium (Duoneb -) 1 amp NEB RQID [facility] Last Admin: 10/24/18 20:20 Dose: 1 amp Apixaban (Eliquis -) 5 mg PO BID [facility] Last Admin: 10/24/18 21:26 Dose: 5 mg Atorvastatin Calcium (Lipitor -) 40 mg PO HS [facility] Last Admin: 10/24/18 21:26 Dose: 40 mg Furosemide (Lasix Injection -) 40 mg IVPUSH DAILY [facility] Last Admin: 10/24/18 09:39 Dose: 40 mg Insulin Aspart (Novolog Vial Sliding Scale -) 1 vial SQ [facility]; Protocol Last Admin: 10/25/18 07:14 Dose: 6 units Insulin Detemir (Levemir Vial) 15 units SQ BID@0700,2200 [facility] Last Admin: 10/25/18 07:14 Dose: 15 units Levothyroxine Sodium (Synthroid Injection -) 25 mcg IVPUSH DAILY [facility] Last Admin: 10/24/18 09:39 Dose: 25 mcg Methylprednisolone Sodium Succinate (Solu-Medrol -) 40 mg IVPUSH Q12H [facility] Last Admin: 10/25/18 08:07 Dose: 40 mg Metoprolol Succinate (Toprol Xl -) 25 mg PO BID [facility] Last Admin: 10/24/18 21:26 Dose: 25 mg Pantoprazole Sodium (Protonix -) 40 mg PO DAILY [facility] Last Admin: 10/24/18 17:17 Dose: 40 mg - Objective Vital Signs: Vital Signs Temperature 98.6 F 10/25/18 06:00 Pulse Rate 68 10/25/18 06:00 Respiratory Rate 20 10/25/18 08:11 Blood Pressure 139/68 10/25/18 06:00 O2 Sat by Pulse Oximetry (%) 97 10/25/18 08:11 Constitutional: Yes: Well Nourished, Calm Eyes: Yes: WNL HENT: Yes: WNL Neck: Yes: WNL Cardiovascular: Yes: Pulse Irregular, S1, S2 Respiratory: Yes: Rales (bibasilar rales l>r) Gastrointestinal: Yes: Normal Bowel Sounds, Soft Extremities: Yes: WNL Edema: Yes Edema: LLE: Trace, RLE: Trace Labs: CBC, BMP 10/25/18 06:15 10/25/18 06:15 INR, PTT INR 1.20 (0.83-1.09) H 10/21/18 14:54 Laboratory Tests 10/25/18 07:30 ABG pH 7.39 ABG pCO2 at Pt Temp 76.3 H* ABG pO2 at Pt Temp 111 H ABG HCO3 45.4 H ABG O2 Sat (Measured) 98.7 H Assessment/Plan Problem List - Problems (1) Altered mental status Code(s): R41.82 - ALTERED MENTAL STATUS, UNSPECIFIED Qualifiers: Altered mental status type: unspecified Qualified Code(s): R41.82 - Altered mental status, unspecified (2) ASHD (arteriosclerotic heart disease) Code(s): I25.10 - ATHSCL HEART DISEASE OF [place] CORONARY ARTERY W/O ANG PCTRS (3) Acute hypercapnic respiratory failure Code(s): J96.02 - ACUTE RESPIRATORY FAILURE WITH HYPERCAPNIA (4) Acute on chronic respiratory failure with hypoxemia Code(s): J96.21 - ACUTE AND CHRONIC RESPIRATORY FAILURE WITH HYPOXIA (5) Atrial fibrillation Code(s): I48.91 - UNSPECIFIED ATRIAL FIBRILLATION Qualifiers: Atrial fibrillation type: paroxysmal Qualified Code(s): I48.0 - Paroxysmal atrial fibrillation (6) CAD (coronary artery disease) Code(s): I25.10 - ATHSCL HEART DISEASE OF [place] CORONARY ARTERY W/O ANG PCTRS Qualifiers: Coronary Disease-Associated Artery/Lesion type: [place] artery [place] vs. transplanted heart: [place] heart Associated angina: without angina Qualified Code(s): I25.10 - Atherosclerotic heart disease of [place] coronary artery without angina pectoris (7) CHF (congestive heart failure) Code(s): I50.9 - HEART FAILURE, UNSPECIFIED Qualifiers: Heart failure type: combined systolic and diastolic Heart failure chronicity: chronic Qualified Code(s): I50.42 - Chronic combined systolic ( congestive) and diastolic (congestive) heart failure (8) CHF exacerbation Code(s): I50.9 - HEART FAILURE, UNSPECIFIED Qualifiers: Heart failure type: unspecified Qualified Code(s): I50.9 - Heart failure, unspecified (9) COPD (chronic obstructive pulmonary disease) Code(s): J44.9 - CHRONIC OBSTRUCTIVE PULMONARY DISEASE, UNSPECIFIED Qualifiers: COPD type: unspecified COPD Qualified Code(s): J44.9 - Chronic obstructive pulmonary disease, unspecified (10) COPD exacerbation Code(s): J44.1 - CHRONIC OBSTRUCTIVE PULMONARY DISEASE W (ACUTE) EXACERBATION (11) Diabetes Code(s): E11.9 - TYPE 2 DIABETES MELLITUS WITHOUT COMPLICATIONS Qualifiers: Diabetes mellitus type: type 2 Diabetes mellitus fdc insulin use: with long chain beamer use Diabetes mellitus complication status: with hyperglycemia Qualified Code(s): E11.65 - Type 2 diabetes mellitus with hyperglycemia; Z79.4 - check viewer (current) use of insulin (12) HTN (hypertension) Code(s): I10 - ESSENTIAL (PRIMARY) HYPERTENSION Qualifiers: Hypertension type: essential hypertension Qualified Code(s): I10 - Essential (primary) hypertension (13) History of coronary artery stent placement Code(s): Z95.5 - PRESENCE OF CORONARY ANGIOPLASTY IMPLANT AND GRAFT (14) Hyperlipidemia Code(s): E78.5 - HYPERLIPIDEMIA, UNSPECIFIED Qualifiers: Hyperlipidemia type: pure hypercholesterolemia Qualified Code(s): E78.00 - Pure hypercholesterolemia, unspecified; E78.0 - Pure hypercholesterolemia (15) Respiratory distress Code(s): R06.00 - DYSPNEA, UNSPECIFIED (16) Seizure Code(s): R56.9 - UNSPECIFIED CONVULSIONS 17 ACUTE ON CHRONIC HYPOXEMIC/HYPERCAPNEIC RESPIRATORY FAILURE Assessment/Plan O2 NIPPV as needed Medrol same dose Lasix Aspiration precautions BD TX Daily wt DR CAAL
[2018-10-25] MEDS: metoPROLOL SUCCINATE 25 MG TAB.SR.24H (FP) PO SCH ×2 (10:09→21:54)
[2018-10-25] MEDS: FUROSEMIDE 40 MG/4 ML INJECTABLE VIAL IVPUSH SCH (10:09)
[2018-10-25] MEDS: LEVOTHYROXINE SODIUM 100 MCG VIAL IVPUSH SCH (10:09)
[2018-10-25] MEDS: PANTOPRAZOLE 40 MG TABLET (FP) PO SCH (10:09)
[2018-10-25] MEDS: APIXABAN 5 MG TABLET PO SCH ×2 (10:10→21:47)
[2018-10-25] MEDS ORDERED: SODIUM POLYSTYRENE SULFONATE 15 GM/60 ML BOTTLE PO ONE (10:57)
--- NOTE | 2018-10-25 10:58 | PN ---
Physical Exam: SUBJECTIVE: Patient seen and examined, awake, sitting in bed, mild tachypnea, no pain or complaints. OBJECTIVE: Vital Signs Period Temp Pulse Resp BP Sys/Gardner Pulse Ox Last 24 Hr 97.9 F-98.6 F 63-87 20-21 124-150/54-83 97-100 Intake & Output 10/22/18 10/23/18 10/24/18 10/25/18 23:59 23:59 23:59 23:59 Intake Total 550 1020 1080 10 Output Total 1100 Balance -550 1020 1080 10 Weight 225 lb 3.2 oz 216 lb 216 lb 9.6 oz GENERAL: sitting in chair, awake, OX3, appropriate, mild tachypnea, use of accessory muscles of respiration chest: decreased air entry all over, few right basilar rales CVS;S1S2 irregular Abdomen: soft, obese, NT throughout, pos bowel sounds Extremities: trace pedal edema Neuro :AAOX3, facial symmetry, tongue midline, moves all extremities freely, weak but co-operative, power 4/5 generalized Laboratory Results - last 24 hr 10/24/18 10/24/18 10/24/18 06:35 11:12 16:23 WBC RBC Hgb Hct MCV MCH MCHC RDW Plt Count MPV Absolute Neuts (auto) Neutrophils % Neutrophils % (Manual) 96.0 H Band Neutrophils % 0.0 Lymphocytes % Lymphocytes % (Manual) 4.0 L D Monocytes % Monocytes % (Manual) 0 L D Eosinophils % Eosinophils % (Manual) 0.0 Basophils % Basophils % (Manual) 0.0 Myelocytes % (Man) 0 D Promyelocytes % (Man) 0 Blast Cells % (Manual) 0 Nucleated RBC % Metamyelocytes 0 Hypochromia 1+ Platelet Estimate Normal Polychromasia 0 Poikilocytosis 1+ Anisocytosis 2+ Microcytosis 2+ Macrocytosis 0 Anticoagulation Therapy Puncture Site ABG pH ABG pCO2 at Pt Temp ABG pO2 at Pt Temp ABG HCO3 ABG O2 Sat (Measured) ABG O2 Content ABG Base Excess Krishan Test O2 Delivery Device Oxygen Flow Rate Vent Mode Vent Rate Mechanical Rate Pressure Support Vent Sodium Potassium Chloride Carbon Dioxide Anion Gap BUN Creatinine Est GFR (CKD-EPI)AfAm Est GFR (CKD-EPI)NonAf POC Glucometer 333 405 Random Glucose Calcium Phosphorus Magnesium 10/24/18 10/24/18 10/25/18 21:24 22:27 00:33 WBC RBC Hgb Hct MCV MCH MCHC RDW Plt Count MPV Absolute Neuts (auto) Neutrophils % Neutrophils % (Manual) Band Neutrophils % Lymphocytes % Lymphocytes % (Manual) Monocytes % Monocytes % (Manual) Eosinophils % Eosinophils % (Manual) Basophils % Basophils % (Manual) Myelocytes % (Man) Promyelocytes % (Man) Blast Cells % (Manual) Nucleated RBC % Metamyelocytes Hypochromia Platelet Estimate Polychromasia Poikilocytosis Anisocytosis Microcytosis Macrocytosis Anticoagulation Therapy Puncture Site ABG pH ABG pCO2 at Pt Temp ABG pO2 at Pt Temp ABG HCO3 ABG O2 Sat (Measured) ABG O2 Content ABG Base Excess Krishan Test O2 Delivery Device Oxygen Flow Rate Vent Mode Vent Rate Mechanical Rate Pressure Support Vent Sodium 137 Potassium 4.5 Chloride 92 L Carbon Dioxide 43 H Anion Gap 3 L BUN 46.3 H Creatinine 1.1 Est GFR (CKD-EPI)AfAm 54.15 Est GFR (CKD-EPI)NonAf 46.72 POC Glucometer 516 518 Random Glucose 453 H* Calcium 8.8 Phosphorus Magnesium 10/25/18 10/25/18 10/25/18 01:38 06:15 06:15 WBC 9.8 RBC 5.04 Hgb 10.4 L Hct 33.7 MCV 66.8 L MCH 20.6 L MCHC 30.8 L RDW 16.5 H Plt Count 236 MPV 8.7 Absolute Neuts (auto) 8.7 H Neutrophils % 88.4 H Neutrophils % (Manual) Band Neutrophils % Lymphocytes % 4.0 L Lymphocytes % (Manual) Monocytes % 7.4 D Monocytes % (Manual) Eosinophils % 0.0 Eosinophils % (Manual) Basophils % 0.2 Basophils % (Manual) Myelocytes % (Man) Promyelocytes % (Man) Blast Cells % (Manual) Nucleated RBC % 0 Metamyelocytes Hypochromia Platelet Estimate Polychromasia Poikilocytosis Anisocytosis Microcytosis Macrocytosis Anticoagulation Therapy Puncture Site ABG pH ABG pCO2 at Pt Temp ABG pO2 at Pt Temp ABG HCO3 ABG O2 Sat (Measured) ABG O2 Content ABG Base Excess Krishan Test O2 Delivery Device Oxygen Flow Rate Vent Mode Vent Rate Mechanical Rate Pressure Support Vent Sodium 138 Potassium 5.0 Chloride 94 L Carbon Dioxide 41 H Anion Gap 2 L BUN 42.6 H Creatinine 1.0 Est GFR (CKD-EPI)AfAm 60.76 Est GFR (CKD-EPI)NonAf 52.42 POC Glucometer 381 Random Glucose 276 H Calcium 9.1 Phosphorus 2.7 Magnesium 2.6 H 10/25/18 10/25/18 07:09 07:30 WBC RBC Hgb Hct MCV MCH MCHC RDW Plt Count MPV Absolute Neuts (auto) Neutrophils % Neutrophils % (Manual) Band Neutrophils % Lymphocytes % Lymphocytes % (Manual) Monocytes % Monocytes % (Manual) Eosinophils % Eosinophils % (Manual) Basophils % Basophils % (Manual) Myelocytes % (Man) Promyelocytes % (Man) Blast Cells % (Manual) Nucleated RBC % Metamyelocytes Hypochromia Platelet Estimate Polychromasia Poikilocytosis Anisocytosis Microcytosis Macrocytosis Anticoagulation Therapy No Result Required. Puncture Site Left radial ABG pH 7.39 ABG pCO2 at Pt Temp 76.3 H* ABG pO2 at Pt Temp 111 H ABG HCO3 45.4 H ABG O2 Sat (Measured) 98.7 H ABG O2 Content 14.5 L ABG Base Excess 17.5 H Krishan Test Positive O2 Delivery Device No Result Required. Oxygen Flow Rate Yes Vent Mode No Result Required. Vent Rate No Result Required. Mechanical Rate No Result Required. Pressure Support Vent No Result Required. Sodium Potassium Chloride Carbon Dioxide Anion Gap BUN Creatinine Est GFR (CKD-EPI)AfAm Est GFR (CKD-EPI)NonAf POC Glucometer 247 Random Glucose Calcium Phosphorus Magnesium Active Medications Generic Name Dose Route Start Last Admin Trade Name Freq PRN Reason Stop Dose Admin Al Hydroxide/Mg Hydroxide 30 ml 10/24/18 17:09 10/24/18 17:17 Mylanta Oral Suspension - PO 30 ml Q6H PRN Administration DYSPEPSIA Albuterol Sulfate 1 amp 10/22/18 00:42 Ventolin 0.083% Nebulizer Soln - NEB Q4H PRN SHORT OF BREATH/WHEEZING Albuterol/Ipratropium 1 amp 10/22/18 00:41 10/25/18 08:00 Duoneb - NEB 1 amp RQID RYANN Administration Apixaban 5 mg 10/21/18 22:00 10/25/18 10:10 Eliquis - PO 5 mg BID RYANN Administration Atorvastatin Calcium 40 mg 10/21/18 22:00 10/24/18 21:26 Lipitor - PO 40 mg HS RYANN Administration Furosemide 40 mg 10/22/18 10:00 10/25/18 10:09 Lasix Injection - IVPUSH 40 mg DAILY RYANN Administration Insulin Aspart 1 vial 10/24/18 16:44 10/25/18 07:14 Novolog Vial Sliding Scale - SQ 6 units ACHS RYANN Administration Protocol Insulin Detemir 20 units 10/25/18 10:54 Levemir Vial SQ BID@0700,2200 [facility] Levothyroxine Sodium 25 mcg 10/22/18 10:00 10/25/18 10:09 Synthroid Injection - IVPUSH 25 mcg DAILY RYANN Administration Methylprednisolone Sodium Succinate 40 mg 10/24/18 20:00 10/25/18 08:07 Solu-Medrol - IVPUSH 40 mg Q12H RYANN Administration Metoprolol Succinate 25 mg 10/21/18 22:00 10/25/18 10:09 Toprol Xl - PO 25 mg BID RYANN Administration Pantoprazole Sodium 40 mg 10/24/18 17:15 10/25/18 10:09 Protonix - PO 40 mg DAILY RYANN Administration Home Medications Medication Instructions Recorded Insulin Lispro [Humalog] 0 unit SQ TIDCM PRN 03/02/14 Apixaban [Eliquis -] 5 mg PO BID #60 tablet 06/09/17 Insulin (Levemir) [Levemir Vial] 15 unit SQ HS 07/16/17 Furosemide [Lasix] 40 mg PO DAILY #30 tablet 07/20/17 Levothyroxine [Synthroid -] 25 mcg PO DAILY 10/27/17 Atorvastatin Ca [Lipitor] 40 mg PO HS #30 tablet 11/04/17 Pantoprazole Sodium [Protonix -] 40 mg PO DAILY #30 tablet.ec 11/04/17 Metoprolol Succinate [Toprol XL -] 25 mg PO BID 10/21/18 Microbiology 10/21/18 15:27 Urine - Urine - Catheterized Urine Culture - Final NO GROWTH OBTAINED ASSESSMENT/PLAN: 83 yof with PMhx of COPD on 2L home oxygen, chronic hypoxic and hypecapnic respiratory failure, CAD/DC/stent, PAF, chronic systolic and diastolic heart failure, type 2 DM, hypothyroidism, hyperlipidemia, HTN, PAD, possible seizures brought in by family with AMS/increased sleepiness. -Acute hypoxic/hypercapneic respiratory failure -Acute on chronic systolic/diastolic HF exacerbation, ?Etiology -Suspected acute COPD exacerbation -Afib with RVR, mostly in NSR now -AMS, likely toxic metabolic encephalopathy from above, less likely seizure or neurological process -IDDM -CAD/DC/stent -Hypothyroidism -HLD -HTN -PAD -Possible seizure disorder Plan: ABG noted. Bipap prn and hs. Slow medrol taper. standing and prn nebs. Ongoing tachypnea, CT chest Cardiology input noted. 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 Follow up if candidate for PCI. 2D echo results reviewed. Lasix 40 mg IV daily. Metoprolol/statin/eliquis. K noted, kayexalate x 1, monitor for now. TSH noted, follow T4/T3, suspect sick euthyroid, outpatient follow up. Repeat CT head and EEG with no acute concerns or seizures. Neurology input noted, hold off on AEDs Speech/swallow eval noted. ISS, diabetic diet. Hyperglycemic likely steroid induced. Increase levemir to 20 units BID. DVTPPX on eliquis Dispo PT eval, OOB, Anticipate SNF vs home with family when clinically improved Plan discussed with nursing, all questions answered. Visit type - Emergency Visit Emergency Visit: Yes ED Registration Date: 10/21/18 Care time: The patient presented to the Emergency Department on the above date and was hospitalized for further evaluation of their emergent condition. - New Patient This patient is new to me today: No - Critical Care Critical Care patient: No - Discharge Referral Referred to [facility] No
[2018-10-25 12:43] LABS: BASO % 0.3 % (0-2.0); HEMATOCRIT 33.3 % (32.4-45.2); HEMOGLOBIN 9.9 GM/dL (10.7-15.3); LYMPH % 2.1 % (8-40); MCH 20.2 pg (25.7-33.7); MCHC 29.8 g/dl (32.0-36.0); MEAN CELL VOLUME 67.9 fl (80-96); MEAN PLT VOLUME 8.5 fl (7.5-11.1); NEUT % 93.6 % (42.8-82.8); RDW 16.6 % (11.6-15.6); WHITE BLOOD COUNT 8.5 K/mm3 (4.0-10.0)
[2018-10-25 13:00] LABS: PLATELET COUNT 241 K/MM3 (134-434)
[2018-10-25 13:02] LABS: ANION GAP 3 MMOL/L (8-16); BLOOD UREA NITROGEN 40.1 mg/dL (7-18); CALCIUM 9.2 mg/dL (8.5-10.1); CHLORIDE 91 mmol/L (98-107); CO2 > 45 mmol/L (21-32); GLUCOSE,RANDOM 238 mg/dL (74-106); POTASSIUM 4.7 mmol/L (3.5-5.1); SODIUM 139 mmol/L (136-145)
[2018-10-25 13:29] LABS: ANISOCYTOSIS 2+; MACROCYTOSIS 0; PLATELET ESTIMATE NORMAL; TARGET CELLS 1+; TEAR DROP CELLS 1+
[2018-10-25 14:28] LABS: ANISOCYTOSIS 2+; MACROCYTOSIS 0; PLATELET ESTIMATE NORMAL
[2018-10-25] MEDS: ATORVASTATIN CA 40 MG TABLET (FP) PO SCH (21:47)
--- NOTE | 2018-10-26 00:19 | EKG ---
Test Reason : Blood Pressure : / mmHG Vent. Rate : 105 BPM Atrial Rate : 090 BPM P-R Int : 000 ms QRS Dur : 128 ms QT Int : 368 ms P-R-T Axes : 000 -60 090 degrees QTc Int : 486 ms ATRIAL FIBRILLATION WITH RAPID VENTRICULAR RESPONSE LEFT AXIS DEVIATION RIGHT BUNDLE BRANCH BLOCK VOLTAGE CRITERIA FOR LEFT VENTRICULAR HYPERTROPHY INFERIOR INFARCT (CITED ON OR BEFORE 24-OCT-2018) ANTEROLATERAL INFARCT (CITED ON OR BEFORE 24-OCT-2018) ABNORMAL ECG WHEN COMPARED WITH ECG OF 24-OCT-2018 17:04, ATRIAL FIBRILLATION HAS REPLACED SINUS RHYTHM Confirmed by MD Quintin, Hans ([id number]) on 10/26/2018 12:18:53 AM Referred By: Confirmed By:Hans Ribeiro MD
--- NOTE | 2018-10-26 00:24 | EKG ---
Test Reason : Blood Pressure : / mmHG Vent. Rate : 089 BPM Atrial Rate : 089 BPM P-R Int : 178 ms QRS Dur : 130 ms QT Int : 382 ms P-R-T Axes : 089 -63 099 degrees QTc Int : 464 ms SINUS RHYTHM WITH MARKED SINUS ARRHYTHMIA LEFT AXIS DEVIATION RIGHT BUNDLE BRANCH BLOCK LEFT VENTRICULAR HYPERTROPHY WITH REPOLARIZATION ABNORMALITY INFERIOR INFARCT , AGE UNDETERMINED ANTEROLATERAL INFARCT , AGE UNDETERMINED ABNORMAL ECG Confirmed by MD Quintin, Hans ([id number]) on 10/26/2018 12:23:40 AM Referred By: Confirmed By:Hans Ribeiro MD
[2018-10-26] MEDS: INSULIN SLIDING SCALE (NOVOLOG) 1 VIAL SQ SCH ×4 (06:56→22:29)
[2018-10-26] MEDS: INSULIN (LEVEMIR) 100 UNITS/ML UNITS SQ SCH ×2 (06:57→22:27)
[2018-10-26 07:08] LABS: ARTERIAL BLD GAS O2 SATURATION 98.5 % (95-98); ARTERIAL BLOOD GAS BASE EXCESS 19.5 meq/l (-2-2); ARTERIAL BLOOD GAS PO2 109 mmHg (80-105); ARTERIAL BLOOD GAS pH 7.41 (7.35-7.45)
[2018-10-26 07:13] LABS: ALLENS TEST POSITIVE; ARTERIAL BLOOD GAS PCO2 76.3 mmHg (35-45)
[2018-10-26] MEDS: ALBUTEROL SO4 2.5/IPRATROPIUM 0.5 INH SOL 3 ML VIAL.NEB. NEB SCH ×4 (07:40→20:39)
[2018-10-26 08:01] LABS: BASO % 0.1 % (0-2.0); HEMATOCRIT 34.1 % (32.4-45.2); HEMOGLOBIN 10.4 GM/dL (10.7-15.3); LYMPH % 6.1 % (8-40); MCH 20.5 pg (25.7-33.7); MCHC 30.5 g/dl (32.0-36.0); MEAN PLT VOLUME 8.8 fl (7.5-11.1); NEUT % 91.8 % (42.8-82.8); PLATELET COUNT 230 K/MM3 (134-434); RBC 5.09 M/mm3 (3.60-5.2); RDW 16.8 % (11.6-15.6); WHITE BLOOD COUNT 5.2 K/mm3 (4.0-10.0)
[2018-10-26] MEDS: methylPREDNISolone NA SUCC 40 MG/1 ML VIAL IVPUSH SCH ×2 (08:30→20:19)
[2018-10-26 08:40] LABS: ANION GAP 3 MMOL/L (8-16); BLOOD UREA NITROGEN 38.1 mg/dL (7-18); CALCIUM 8.9 mg/dL (8.5-10.1); CHLORIDE 92 mmol/L (98-107); CO2 > 45 mmol/L (21-32); MAGNESIUM 2.6 mg/dL (1.8-2.4); PHOSPHOROUS 3.7 mg/dL (2.5-4.9); POTASSIUM 4.3 mmol/L (3.5-5.1); SODIUM 140 mmol/L (136-145)
--- NOTE | 2018-10-26 08:52 | PN ---
Progress Note (short form) - Note Progress Note: Neurology CHIEF COMPLAINT: AMS PCP: Shantanu HISTORY OF PRESENT ILLNESS: 83 y/o female with a history of DM, HTN, HLD, [place] in 2013, COPD on 2 L, diastolic /systolic CHF, DM and seizures who presented for AMS. Reportedly at 10 am on morning of admission, patient's reported her right side was shaking for about 1-3 minutes, her eyes were darting back and forth and after she did not know the name of her daughter and was very confused. The night before she had a hallucination and reportedly believed someone was in her bedroom. From 10 am - 3pm on day of admission she was confused but mental status did improve. Reportedly with seizure like event in February. Patient was told she does not need any anti seizure medications. 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 She has had hallucinations in the past but only at the hospital. Patient is incontinent at baseline, family unaware if she voided during this event. Patient has no complaints. Patient is compliant with the medication. On admission, CT head completed and without acute changes. Of note, Blood gas completed and patient with intial PH 7.19, pC02 107, now improved since. Not wearing facemask during my evaluation this morning, comfortably breathing on room air. CT chest completed, awaiting official report. Repeat CT completed, no acute infarct noted. EEG completed, report reviewed, no epileptiform activity. Allergies Penicillins Allergy (Verified 04/12/18 10:51) Apple juice Allergy (Uncoded 04/12/18 10:51) HOME MEDICATIONS: Home Medications Medication Instructions Recorded Insulin Lispro [Humalog] 0 unit SQ TIDCM PRN 03/02/14 Apixaban [Eliquis -] 5 mg PO BID #60 tablet 06/09/17 Insulin (Levemir) [Levemir Vial] 15 unit SQ HS 07/16/17 Furosemide [Lasix] 40 mg PO DAILY #30 tablet 07/20/17 Levothyroxine [Synthroid -] 25 mcg PO DAILY 10/27/17 Atorvastatin Ca [Lipitor] 40 mg PO HS #30 tablet 11/04/17 Pantoprazole Sodium [Protonix -] 40 mg PO DAILY #30 tablet.ec 11/04/17 Metoprolol Succinate [Toprol XL -] 25 mg PO BID 10/21/18 Active Medications Al Hydroxide/Mg Hydroxide (Mylanta Oral Suspension -) 30 ml PO Q6H PRN PRN Reason: DYSPEPSIA Last Admin: 10/24/18 17:17 Dose: 30 ml Albuterol Sulfate (Ventolin 0.083% Nebulizer Soln -) 1 amp NEB Q4H PRN PRN Reason: SHORT OF BREATH/WHEEZING Albuterol/Ipratropium (Duoneb -) 1 amp NEB RQID [facility] Last Admin: 10/26/18 07:40 Dose: 1 amp Apixaban (Eliquis -) 5 mg PO BID [facility] Last Admin: 10/25/18 21:47 Dose: 5 mg Atorvastatin Calcium (Lipitor -) 40 mg PO HS [facility] Last Admin: 10/25/18 21:47 Dose: 40 mg Furosemide (Lasix Injection -) 40 mg IVPUSH DAILY [facility] Last Admin: 10/25/18 10:09 Dose: 40 mg Insulin Aspart (Novolog Vial Sliding Scale -) 1 vial SQ ACHS [facility]; Protocol Last Admin: 10/26/18 06:56 Dose: 8 units Insulin Detemir (Levemir Vial) 20 units SQ BID@0700,2200 [facility] Last Admin: 10/26/18 06:57 Dose: 20 units Levothyroxine Sodium (Synthroid Injection -) 25 mcg IVPUSH DAILY [facility] Last Admin: 10/25/18 10:09 Dose: 25 mcg Methylprednisolone Sodium Succinate (Solu-Medrol -) 40 mg IVPUSH Q12H [facility] Last Admin: 10/25/18 21:47 Dose: 40 mg Metoprolol Succinate (Toprol Xl -) 25 mg PO BID [facility] Last Admin: 10/25/18 21:54 Dose: 25 mg Pantoprazole Sodium (Protonix -) 40 mg PO DAILY [facility] Last Admin: 10/25/18 10:09 Dose: 40 mg PHYSICAL EXAMINATION Vital Signs Period Temp Pulse Resp BP Sys/Gardner Pulse Ox Last 24 Hr 97.7 F-98.7 F 56-81 20-21 119-139/43-68 97-98 GENERAL: Awake, alert, and fully oriented, in no acute distress. HEAD: Normal with no signs of trauma. EYES: Pupils equal, round and reactive to light, extraocular movements intact NECK: Normal range of motion LUNGS: Breath sounds equal, clear to auscultation bilaterally. No wheezes, and no crackles. No accessory muscle use. HEART: Regular rate and rhythm, normal S1 and S2 without murmur, rub or gallop. ABDOMEN: Soft, nontender, not distended, normoactive bowel sounds, no guarding, no rebound, no masses. MUSCULOSKELETAL: Normal range of motion at all joints. Pain in joints LOWER EXTREMITIES: 2+ pulses, warm, well-perfused. No calf tenderness. No peripheral edema. NEUROLOGICAL: Cranial nerves II-XII intact. Normal speech. decreased sensation on R side, 5-/5 on R, 5/5 on L, gait deferred PSYCHIATRIC: Cooperative. Good eye contact. Appropriate mood and affect. SKIN: Warm, dry, normal turgor, no rashes or lesions noted, normal capillary refill. CBCD WBC 5.2 K/mm3 (4.0-10.0) 10/26/18 06:57 RBC 5.09 M/mm3 (3.60-5.2) 10/26/18 06:57 Hgb 10.4 GM/dL (10.7-15.3) L 10/26/18 06:57 Hct 34.1 % (32.4-45.2) 10/26/18 06:57 MCV 67.0 fl (80-96) L 10/26/18 06:57 MCHC 30.5 g/dl (32.0-36.0) L 10/26/18 06:57 RDW 16.8 % (11.6-15.6) H 10/26/18 06:57 Plt Count 230 K/MM3 (134-434) 10/26/18 06:57 MPV 8.8 fl (7.5-11.1) 10/26/18 06:57 CMP Sodium 140 mmol/L (136-145) 10/26/18 06:57 Potassium 4.3 mmol/L (3.5-5.1) 10/26/18 06:57 Chloride 92 mmol/L (98-107) L 10/26/18 06:57 Carbon Dioxide > 45 mmol/L (21-32) H 10/26/18 06:57 Anion Gap 3 MMOL/L (8-16) L 10/26/18 06:57 BUN 38.1 mg/dL (7-18) H 10/26/18 06:57 Creatinine 1.0 mg/dL (0.55-1.3) 10/26/18 06:57 Random Glucose 238 mg/dL (74-106) H 10/25/18 11:45 Calcium 8.9 mg/dL (8.5-10.1) 10/26/18 06:57 Total Bilirubin 1.5 mg/dL (0.2-1) H 10/24/18 06:35 AST 17 U/L (15-37) 10/24/18 06:35 ALT 15 U/L (13-61) 10/24/18 06:35 Alkaline Phosphatase 63 U/L (45-117) 10/24/18 06:35 Total Protein 7.6 g/dl (6.4-8.2) 10/24/18 06:35 Albumin 3.2 g/dl (3.4-5.0) L 10/24/18 06:35 CARDIAC ENZYMES Creatine Kinase 67 U/L (26-192) 10/21/18 14:54 Troponin I 0.09 ng/ml (0.00-0.05) H 10/21/18 19:55 ASSESSMENT/PLAN: 83 y/o female with a history of DM, HTN, HLD, [place] in 2013, COPD on 2 L, diastolic /systolic CHF, DM and seizures who presented for AMS. Reportedly at 10 am on morning of admission, patient's reported her right side was shaking for about 1-3 minutes, her eyes were darting back and forth and after she did not know the name of her daughter and was very confused. The night before she had a hallucination and reportedly believed someone was in her bedroom. From 10 am - 3pm on day of admission she was confused but mental status did improve. Reportedly with seizure like event in February. Patient was told she does not need any anti seizure medications. 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 She has had hallucinations in the past but only at the hospital. Patient is incontinent at baseline, family unaware if she voided during this event. Patient has no complaints. Patient is compliant with the medication. On admission, CT head completed and without acute changes. Of note, Blood gas completed and patient with intial PH 7.19, pC02 107, now improved since. Not wearing facemask during my evaluation this morning, comfortably breathing on room air. CT chest completed, awaiting official report. Repeat CT completed, no acute infarct noted. EEG completed, report reviewed, no epileptiform activity. Continue respiratory mgmt and follow up. Monitor blood pressure, maintain normotensive range, continue toprolol, furosemide. Continue Statin 40mg, lipid profile reviewed. On Eliquis for afib.
[2018-10-26 08:55] LABS: GLUCOSE,RANDOM 304 mg/dL (74-106)
--- NOTE | 2018-10-26 09:07 | PN ---
Progress Note, Physician Chief Complaint: much more alert today TELE: AF, controlled. short self limited RVR. short run NSVT History of Present Illness: weight down - Current Medication List Current Medications: Active Medications Al Hydroxide/Mg Hydroxide (Mylanta Oral Suspension -) 30 ml PO Q6H PRN PRN Reason: DYSPEPSIA Last Admin: 10/24/18 17:17 Dose: 30 ml Albuterol Sulfate (Ventolin 0.083% Nebulizer Soln -) 1 amp NEB Q4H PRN PRN Reason: SHORT OF BREATH/WHEEZING Albuterol/Ipratropium (Duoneb -) 1 amp NEB RQID [facility] Last Admin: 10/26/18 07:40 Dose: 1 amp Apixaban (Eliquis -) 5 mg PO BID [facility] Last Admin: 10/25/18 21:47 Dose: 5 mg Atorvastatin Calcium (Lipitor -) 40 mg PO HS [facility] Last Admin: 10/25/18 21:47 Dose: 40 mg Furosemide (Lasix Injection -) 40 mg IVPUSH DAILY [facility] Last Admin: 10/25/18 10:09 Dose: 40 mg Insulin Aspart (Novolog Vial Sliding Scale -) 1 vial SQ ACHS [facility]; Protocol Last Admin: 10/26/18 06:56 Dose: 8 units Insulin Detemir (Levemir Vial) 20 units SQ BID@0700,2200 [facility] Last Admin: 10/26/18 06:57 Dose: 20 units Levothyroxine Sodium (Synthroid Injection -) 25 mcg IVPUSH DAILY [facility] Last Admin: 10/25/18 10:09 Dose: 25 mcg Methylprednisolone Sodium Succinate (Solu-Medrol -) 40 mg IVPUSH Q12H [facility] Last Admin: 10/25/18 21:47 Dose: 40 mg Metoprolol Succinate (Toprol Xl -) 25 mg PO BID [facility] Last Admin: 10/25/18 21:54 Dose: 25 mg Pantoprazole Sodium (Protonix -) 40 mg PO DAILY [facility] Last Admin: 10/25/18 10:09 Dose: 40 mg - Objective Vital Signs: Vital Signs Temperature 98.2 F 10/26/18 05:50 Pulse Rate 72 10/26/18 05:50 Respiratory Rate 20 10/26/18 05:50 Blood Pressure 131/67 10/26/18 05:50 O2 Sat by Pulse Oximetry (%) 98 10/26/18 04:45 Constitutional: Yes: Calm Cardiovascular: Yes: Pulse Irregular Respiratory: Yes: Rhonchi, Other (mild scattered expiratory wheezing.) Gastrointestinal: Yes: Soft Edema: No Neurological: Yes: Alert, Oriented Labs: CBC, BMP 10/26/18 06:57 10/26/18 06:57 INR, PTT INR 1.20 (0.83-1.09) H 10/21/18 14:54 - ....Imaging EKG: Image Reviewed Assessment/Plan Assessment/Plan cath 07/2018: lm 50, mlad 80 (isr), d1 90, lcx 90, mrca 70 echo 06/2018: mild lvh, lvef 40-45, g2dd, apical hk, nl rv, mild mr, mild phtn tele: NSR A/P: 83 yr old lady with known CAD/pci, chf, HTN, HPL, DM, pad, obesity, pafib (dx 05/2017 when admitted for copd) here with ams. AMS possible seizure: -plans per neuro Acute exacerbation copd, PNA/CO2 retention: -steroids, NIPPV per pulm -pt on home O2 Acute mixed diastolic/systolic CHF (EF mid-range 40-45%), mild pulm HTN: -here with likely a.e. copd > mild chf decomp -10/24: repeat CXR 10/23 no signif change, otherwise appears euvolemic. suspect cough with rhonchi/wheezes is primarily airways process here. cont lasix 40 iv qd for now, weight trend stable. BUN/creat stable - continue iv lasix while pt on steroids, to avoid fluid retention. -home O2 therapy as prior plan CAD: -borderline trop elevation with flat trend and nl ck, similar to prior baseline values, not c/w acs -pt was in [place] and admitted for chf recently and had cath showing 3vd (cath 07/2018: lm 50, mlad 80 (isr), d1 90, lcx 90, mrca 70) and deemed high risk for cabg, no pci done -given her recurrent chf, will re-consider revascularization options with [facility] once HF and copd are stabilized -remains without angina -cont bb, ac, statin PAF: -mostly in sinus here--cont bb -cont eliquis 5 bid for AC HTN: -bp controlled -cont current meds NSVT: -Keep K+ > 4 and Mg2+ > 2; cont BB
[2018-10-26] MEDS ORDERED: PT OWN MED DRAWER 7, Y5N ONE (09:15)
[2018-10-26] MEDS: PANTOPRAZOLE 40 MG TABLET (FP) PO SCH (09:18)
[2018-10-26] MEDS: metoPROLOL SUCCINATE 25 MG TAB.SR.24H (FP) PO SCH ×2 (09:18→22:26)
[2018-10-26] MEDS: APIXABAN 5 MG TABLET PO SCH ×2 (09:18→22:26)
--- NOTE | 2018-10-26 09:47 | PN ---
Progress Note, Physician History of Present Illness: pulmonary alert,feeling better,less dyspneic - Current Medication List Current Medications: Active Medications Al Hydroxide/Mg Hydroxide (Mylanta Oral Suspension -) 30 ml PO Q6H PRN PRN Reason: DYSPEPSIA Last Admin: 10/24/18 17:17 Dose: 30 ml Albuterol Sulfate (Ventolin 0.083% Nebulizer Soln -) 1 amp NEB Q4H PRN PRN Reason: SHORT OF BREATH/WHEEZING Albuterol/Ipratropium (Duoneb -) 1 amp NEB RQID [facility] Last Admin: 10/26/18 07:40 Dose: 1 amp Apixaban (Eliquis -) 5 mg PO BID [facility] Last Admin: 10/26/18 09:18 Dose: 5 mg Atorvastatin Calcium (Lipitor -) 40 mg PO HS [facility] Last Admin: 10/25/18 21:47 Dose: 40 mg Furosemide (Lasix Injection -) 40 mg IVPUSH DAILY [facility] Last Admin: 10/25/18 10:09 Dose: 40 mg Insulin Aspart (Novolog Vial Sliding Scale -) 1 vial SQ [facility]; Protocol Last Admin: 10/26/18 06:56 Dose: 8 units Insulin Detemir (Levemir Vial) 20 units SQ BID@0700,2200 [facility] Last Admin: 10/26/18 06:57 Dose: 20 units Levothyroxine Sodium (Synthroid Injection -) 25 mcg IVPUSH DAILY [facility] Last Admin: 10/25/18 10:09 Dose: 25 mcg Methylprednisolone Sodium Succinate (Solu-Medrol -) 40 mg IVPUSH Q12H [facility] Last Admin: 10/25/18 21:47 Dose: 40 mg Metoprolol Succinate (Toprol Xl -) 25 mg PO BID [facility] Last Admin: 10/26/18 09:18 Dose: 25 mg Pantoprazole Sodium (Protonix -) 40 mg PO DAILY [facility] Last Admin: 10/26/18 09:18 Dose: 40 mg - Objective Vital Signs: Vital Signs Temperature 98.2 F 10/26/18 05:50 Pulse Rate 72 10/26/18 05:50 Respiratory Rate 20 10/26/18 05:50 Blood Pressure 131/67 10/26/18 05:50 O2 Sat by Pulse Oximetry (%) 100 10/26/18 09:00 Constitutional: Yes: Well Nourished, Calm, Obese Eyes: Yes: WNL HENT: Yes: WNL Neck: Yes: WNL Cardiovascular: Yes: Regular Rate and Rhythm, S1, S2 Respiratory: Yes: Rales (few bibasilar crackles) Gastrointestinal: Yes: Normal Bowel Sounds, Soft Extremities: Yes: WNL Edema: Yes Labs: CBC, BMP 10/26/18 06:57 10/26/18 06:57 INR, PTT INR 1.20 (0.83-1.09) H 10/21/18 14:54 - ....Imaging Cat Scan: Image Reviewed Assessment/Plan Problem List - Problems (1) Altered mental status Code(s): R41.82 - ALTERED MENTAL STATUS, UNSPECIFIED Qualifiers: Altered mental status type: unspecified Qualified Code(s): R41.82 - Altered mental status, unspecified (2) ASHD (arteriosclerotic heart disease) Code(s): I25.10 - ATHSCL HEART DISEASE OF [place] CORONARY ARTERY W/O ANG PCTRS (3) Acute hypercapnic respiratory failure Code(s): J96.02 - ACUTE RESPIRATORY FAILURE WITH HYPERCAPNIA (4) Acute on chronic respiratory failure with hypoxemia Code(s): J96.21 - ACUTE AND CHRONIC RESPIRATORY FAILURE WITH HYPOXIA (5) Atrial fibrillation Code(s): I48.91 - UNSPECIFIED ATRIAL FIBRILLATION Qualifiers: Atrial fibrillation type: paroxysmal Qualified Code(s): I48.0 - Paroxysmal atrial fibrillation (6) CAD (coronary artery disease) Code(s): I25.10 - ATHSCL HEART DISEASE OF [place] CORONARY ARTERY W/O ANG PCTRS Qualifiers: Coronary Disease-Associated Artery/Lesion type: [place] artery [place] vs. transplanted heart: [place] heart Associated angina: without angina Qualified Code(s): I25.10 - Atherosclerotic heart disease of [place] coronary artery without angina pectoris (7) CHF (congestive heart failure) Code(s): I50.9 - HEART FAILURE, UNSPECIFIED Qualifiers: Heart failure type: combined systolic and diastolic Heart failure chronicity: chronic Qualified Code(s): I50.42 - Chronic combined systolic ( congestive) and diastolic (congestive) heart failure (8) CHF exacerbation Code(s): I50.9 - HEART FAILURE, UNSPECIFIED Qualifiers: Heart failure type: unspecified Qualified Code(s): I50.9 - Heart failure, unspecified (9) COPD (chronic obstructive pulmonary disease) Code(s): J44.9 - CHRONIC OBSTRUCTIVE PULMONARY DISEASE, UNSPECIFIED Qualifiers: COPD type: unspecified COPD Qualified Code(s): J44.9 - Chronic obstructive pulmonary disease, unspecified (10) COPD exacerbation Code(s): J44.1 - CHRONIC OBSTRUCTIVE PULMONARY DISEASE W (ACUTE) EXACERBATION (11) Diabetes Code(s): E11.9 - TYPE 2 DIABETES MELLITUS WITHOUT COMPLICATIONS Qualifiers: Diabetes mellitus type: type 2 Diabetes mellitus skilled nursing insulin use: with termite inspector use Diabetes mellitus complication status: with hyperglycemia Qualified Code(s): E11.65 - Type 2 diabetes mellitus with hyperglycemia; Z79.4 - care home (current) use of insulin (12) HTN (hypertension) Code(s): I10 - ESSENTIAL (PRIMARY) HYPERTENSION Qualifiers: Hypertension type: essential hypertension Qualified Code(s): I10 - Essential (primary) hypertension (13) History of coronary artery stent placement Code(s): Z95.5 - PRESENCE OF CORONARY ANGIOPLASTY IMPLANT AND GRAFT (14) Hyperlipidemia Code(s): E78.5 - HYPERLIPIDEMIA, UNSPECIFIED Qualifiers: Hyperlipidemia type: pure hypercholesterolemia Qualified Code(s): E78.00 - Pure hypercholesterolemia, unspecified; E78.0 - Pure hypercholesterolemia (15) Respiratory distress Code(s): R06.00 - DYSPNEA, UNSPECIFIED (16) Seizure Code(s): R56.9 - UNSPECIFIED CONVULSIONS 17 ACUTE ON CHRONIC HYPOXEMIC/HYPERCAPNEIC RESPIRATORY FAILURE PT CLINICALLY IMPROVING Assessment/Plan O2 NIPPV as needed Medrol taper Lasix Aspiration precautions BD TX Daily wt consider home trilogy device f/u chest x-rays f/u chest ct 4-6 wks to confirm resolution of infiltrates observe off abx DR CAAL
[2018-10-26 10:39] LABS: ANISOCYTOSIS 2+; MACROCYTOSIS 0; PLATELET ESTIMATE NORMAL; TEAR DROP CELLS 1+
[2018-10-26] MEDS: LEVOTHYROXINE SODIUM 100 MCG VIAL IVPUSH SCH (11:15)
[2018-10-26] MEDS: FUROSEMIDE 40 MG/4 ML INJECTABLE VIAL IVPUSH SCH (11:15)
[2018-10-26] MEDS ORDERED: INSULIN (NOVOLOG) ASPART 100 UNITS/ML 10ML VIAL ONE (11:26)
--- NOTE | 2018-10-26 11:26 | PN ---
Progress Note, INSURANCE COLLECTOR - Note Progress Note: Selected Entries 10/22/18 10/22/18 10/22/18 00:00 02:00 09:00 Supper Temperature 97.6 F 97.4 F L 98 F 10/22/18 10/23/18 10/23/18 18:00 02:00 06:00 Supper 50% Temperature 99.0 F 98.6 F 98.1 F 10/23/18 09:20 Supper Temperature 99 F Selected Entries 10/25/18 10/25/18 10/25/18 02:00 06:00 10:08 Breakfast Diet Tolerated Lunch Supper Temperature 97.9 F 98.6 F 98.5 F 10/25/18 10/25/18 10/25/18 14:00 17:00 21:00 Breakfast 75% Diet Tolerated Fair Lunch 0 Supper 25% Temperature 97.7 F 98.7 F 98.2 F 10/26/18 10/26/18 10/26/18 02:00 05:50 10:01 Breakfast 75% Diet Tolerated Well Lunch Supper Temperature 98 F 98.2 F 10/26/18 10:25 Breakfast Diet Tolerated Lunch Supper Temperature 98.2 F Laboratory Tests 10/26/18 06:57 WBC 5.2 Tolerating puree/nectar diet. (-) 3 oz water test. Tolerated trial of rafa cracker. Consider Chopped diet, soft, easy to chew, No chicken/meat per pt. RD f/u. Monitor tolerance. MBS if difficulty reported or observed.
--- NOTE | 2018-10-26 11:41 | PN ---
Physical Exam: SUBJECTIVE: Patient seen and examined, breathing improved, no new complaints otherwise. Breathing better today. OBJECTIVE: Vital Signs Period Temp Pulse Resp BP Sys/Gardner Pulse Ox Last 24 Hr 97.7 F-98.7 F 56-81 20-20 119-139/43-68 97-100 Intake & Output 10/23/18 10/24/18 10/25/18 10/26/18 23:59 23:59 23:59 23:59 Intake Total 1020 1080 560 340 Balance 1020 1080 560 340 Weight 216 lb 216 lb 9.6 oz 217 lb 1.6 oz GENERAL: awake, more responsive, less tachypneic today Chest: few right basilar rales, improved air entry CVS:S1S2 irregular Abdomen:soft, obese, NT throughout Extremities: 1+ pedal edema neuro: AA, oriented to self, place, more awake, moves all extremities freely, unchanged exam otherwise Laboratory Results - last 24 hr 10/25/18 10/25/18 10/25/18 06:15 11:45 11:45 WBC 8.5 RBC 4.90 Hgb 9.9 L Hct 33.3 MCV 67.9 L MCH 20.2 L MCHC 29.8 L RDW 16.6 H Plt Count 241 MPV 8.5 Absolute Neuts (auto) 8.0 Neutrophils % 93.6 H Neutrophils % (Manual) 96.0 H Band Neutrophils % 2.0 Lymphocytes % 2.1 L D Lymphocytes % (Manual) 2.0 L D Monocytes % 4.0 Monocytes % (Manual) 0 L Eosinophils % 0.0 Eosinophils % (Manual) 0.0 Basophils % 0.3 Basophils % (Manual) 0.0 Myelocytes % (Man) 0 Promyelocytes % (Man) 0 Blast Cells % (Manual) 0 Nucleated RBC % 0 Metamyelocytes 0 Hypochromia 1+ 1+ Platelet Estimate Normal Normal Platelet Comment Polychromasia 1+ 0 Poikilocytosis 1+ 1+ Basophilic Stippling 1+ Anisocytosis 2+ 2+ Microcytosis 2+ 2+ Macrocytosis 0 0 Target Cells 1+ Tear Drop Cells 1+ Stomatocytes Anticoagulation Therapy Puncture Site ABG pH ABG pCO2 at Pt Temp ABG pO2 at Pt Temp ABG HCO3 ABG O2 Sat (Measured) ABG O2 Content ABG Base Excess Krishan Test O2 Delivery Device Oxygen Flow Rate Vent Mode Vent Rate Mechanical Rate Pressure Support Vent Sodium 139 Potassium 4.7 Chloride 91 L Carbon Dioxide > 45 H Anion Gap 3 L BUN 40.1 H Creatinine 1.0 Est GFR (CKD-EPI)AfAm 60.76 Est GFR (CKD-EPI)NonAf 52.42 POC Glucometer Random Glucose 238 H Calcium 9.2 Phosphorus Magnesium 10/25/18 10/25/18 10/26/18 16:51 21:46 06:40 WBC RBC Hgb Hct MCV MCH MCHC RDW Plt Count MPV Absolute Neuts (auto) Neutrophils % Neutrophils % (Manual) Band Neutrophils % Lymphocytes % Lymphocytes % (Manual) Monocytes % Monocytes % (Manual) Eosinophils % Eosinophils % (Manual) Basophils % Basophils % (Manual) Myelocytes % (Man) Promyelocytes % (Man) Blast Cells % (Manual) Nucleated RBC % Metamyelocytes Hypochromia Platelet Estimate Platelet Comment Polychromasia Poikilocytosis Basophilic Stippling Anisocytosis Microcytosis Macrocytosis Target Cells Tear Drop Cells Stomatocytes Anticoagulation Therapy No Result Required. Puncture Site Left radial ABG pH 7.41 ABG pCO2 at Pt Temp 76.3 H* ABG pO2 at Pt Temp 109 H ABG HCO3 47.3 H ABG O2 Sat (Measured) 98.5 H ABG O2 Content 14.1 L ABG Base Excess 19.5 H Krishan Test Positive O2 Delivery Device Bipap Oxygen Flow Rate 40% Vent Mode S/t Vent Rate 16 Mechanical Rate No Result Required. Pressure Support Vent 14/6 Sodium Potassium Chloride Carbon Dioxide Anion Gap BUN Creatinine Est GFR (CKD-EPI)AfAm Est GFR (CKD-EPI)NonAf POC Glucometer 233 255 Random Glucose Calcium Phosphorus Magnesium 10/26/18 10/26/18 10/26/18 06:53 06:57 06:57 WBC 5.2 RBC 5.09 Hgb 10.4 L Hct 34.1 MCV 67.0 L MCH 20.5 L MCHC 30.5 L RDW 16.8 H Plt Count 230 MPV 8.8 Absolute Neuts (auto) 4.8 Neutrophils % 91.8 H Neutrophils % (Manual) 90.9 H Band Neutrophils % 0.0 Lymphocytes % 6.1 L D Lymphocytes % (Manual) 4.1 L D Monocytes % 2.0 L Monocytes % (Manual) 1 L D Eosinophils % 0.0 Eosinophils % (Manual) 0.0 Basophils % 0.1 Basophils % (Manual) 0.0 Myelocytes % (Man) 0 Promyelocytes % (Man) 0 Blast Cells % (Manual) 0 Nucleated RBC % 0 Metamyelocytes 1 D Hypochromia 1+ Platelet Estimate Normal Platelet Comment Present Polychromasia 2+ Poikilocytosis 1+ Basophilic Stippling 2+ Anisocytosis 2+ Microcytosis 1+ Macrocytosis 0 Target Cells Tear Drop Cells 1+ Stomatocytes 1+ Anticoagulation Therapy Puncture Site ABG pH ABG pCO2 at Pt Temp ABG pO2 at Pt Temp ABG HCO3 ABG O2 Sat (Measured) ABG O2 Content ABG Base Excess Krishan Test O2 Delivery Device Oxygen Flow Rate Vent Mode Vent Rate Mechanical Rate Pressure Support Vent Sodium 140 Potassium 4.3 Chloride 92 L Carbon Dioxide > 45 H Anion Gap 3 L BUN 38.1 H Creatinine 1.0 Est GFR (CKD-EPI)AfAm 60.76 Est GFR (CKD-EPI)NonAf 52.42 POC Glucometer 335 Random Glucose 304 H* Calcium 8.9 Phosphorus 3.7 Magnesium 2.6 H 10/26/18 11:30 WBC RBC Hgb Hct MCV MCH MCHC RDW Plt Count MPV Absolute Neuts (auto) Neutrophils % Neutrophils % (Manual) Band Neutrophils % Lymphocytes % Lymphocytes % (Manual) Monocytes % Monocytes % (Manual) Eosinophils % Eosinophils % (Manual) Basophils % Basophils % (Manual) Myelocytes % (Man) Promyelocytes % (Man) Blast Cells % (Manual) Nucleated RBC % Metamyelocytes Hypochromia Platelet Estimate Platelet Comment Polychromasia Poikilocytosis Basophilic Stippling Anisocytosis Microcytosis Macrocytosis Target Cells Tear Drop Cells Stomatocytes Anticoagulation Therapy Puncture Site ABG pH ABG pCO2 at Pt Temp ABG pO2 at Pt Temp ABG HCO3 ABG O2 Sat (Measured) ABG O2 Content ABG Base Excess Krishan Test O2 Delivery Device Oxygen Flow Rate Vent Mode Vent Rate Mechanical Rate Pressure Support Vent Sodium Potassium Chloride Carbon Dioxide Anion Gap BUN Creatinine Est GFR (CKD-EPI)AfAm Est GFR (CKD-EPI)NonAf POC Glucometer 268 Random Glucose Calcium Phosphorus Magnesium Active Medications Generic Name Dose Route Start Last Admin Trade Name Freq PRN Reason Stop Dose Admin Al Hydroxide/Mg Hydroxide 30 ml 10/24/18 17:09 10/24/18 17:17 Mylanta Oral Suspension - PO 30 ml Q6H PRN Administration DYSPEPSIA Albuterol Sulfate 1 amp 10/22/18 00:42 Ventolin 0.083% Nebulizer Soln - NEB Q4H PRN SHORT OF BREATH/WHEEZING Albuterol/Ipratropium 1 amp 10/22/18 00:41 10/26/18 07:40 Duoneb - NEB 1 amp RQID [facility]ANN Administration Apixaban 5 mg 10/21/18 22:00 10/26/18 09:18 Eliquis - PO 5 mg BID R[facility]ANN Administration Atorvastatin Calcium 40 mg 10/21/18 22:00 10/25/18 21:47 Lipitor - PO 40 mg HS [facility]ANN Administration Furosemide 40 mg 10/22/18 10:00 10/26/18 11:15 Lasix Injection - IVPUSH 40 mg DAILY [facility] Administration Insulin Aspart 1 vial 10/24/18 16:44 10/26/18 11:32 Novolog Vial Sliding Scale - SQ 6 units ACHS [facility] Administration Protocol Insulin Detemir 20 units 10/25/18 10:54 10/26/18 06:57 Levemir Vial SQ 20 units BID@0700,2200 [facility] Administration Levothyroxine Sodium 25 mcg 10/22/18 10:00 10/26/18 11:15 Synthroid Injection - IVPUSH 25 mcg DAILY [facility] Administration Methylprednisolone Sodium Succinate 40 mg 10/24/18 20:00 10/26/18 08:30 Solu-Medrol - IVPUSH 40 mg Q12H [facility] Administration Metoprolol Succinate 25 mg 10/21/18 22:00 10/26/18 09:18 Toprol Xl - PO 25 mg BID [facility] Administration Pantoprazole Sodium 40 mg 10/24/18 17:15 10/26/18 09:18 Protonix - PO 40 mg DAILY [facility] Administration Home Medications Medication Instructions Recorded Insulin Lispro [Humalog] 0 unit SQ TIDCM PRN 03/02/14 Apixaban [Eliquis -] 5 mg PO BID #60 tablet 06/09/17 Insulin (Levemir) [Levemir Vial] 15 unit SQ HS 07/16/17 Furosemide [Lasix] 40 mg PO DAILY #30 tablet 07/20/17 Levothyroxine [Synthroid -] 25 mcg PO DAILY 10/27/17 Atorvastatin Ca [Lipitor] 40 mg PO HS #30 tablet 11/04/17 Pantoprazole Sodium [Protonix -] 40 mg PO DAILY #30 tablet.ec 11/04/17 Metoprolol Succinate [Toprol XL -] 25 mg PO BID 10/21/18 Microbiology 10/21/18 15:27 Urine - Urine - Catheterized Urine Culture - Final NO GROWTH OBTAINED CT chest results reviewed ASSESSMENT/PLAN: 83 yof with PMhx of COPD on 2L home oxygen, chronic hypoxic and hypecapnic respiratory failure, CAD/CA/stent, PAF, chronic systolic and diastolic heart failure, type 2 DM, hypothyroidism, hyperlipidemia, HTN, PAD, possible seizures brought in by family with AMS/increased sleepiness. -Acute on chronic hypoxic/hypercapneic respiratory failure -Acute on chronic systolic/diastolic HF exacerbation, ?Etiology -Suspected acute COPD exacerbation -Metabolic alkalosis -Afib with RVR, mostly in NSR now -AMS, likely toxic metabolic encephalopathy from above, less likely seizure or neurological process -IDDM -CAD/CA/stent -Hypothyroidism -HLD -HTN -PAD -Possible seizure disorder Plan: ABG noted. Bipap prn and hs. Slow medrol taper. standing and prn nebs. CT chest noted, discussed with Dr. Obregon, given clinical improvement, no fevers or WBC, will hold off on abx. Low threshold to place on abx if clinical concerns. Also will benefit from trilogy on dc. Cardiology input noted. 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 Follow up if candidate for PCI. 2D echo results reviewed. Lasix 40 mg IV daily. Metoprolol/statin/eliquis. K improved, monitor. HCo3, noted, combined alkalosis from respiratory compensation and lasix. Discuss with pulmonary if benefit from diamox. TSH noted, follow T4/T3, suspect sick euthyroid, outpatient follow up. Repeat CT head and EEG with no acute concerns or seizures. Neurology input noted, hold off on AEDs Speech/swallow eval noted. ISS, diabetic diet. Hyperglycemic likely steroid induced. Levemir to 20 units BID, titrate up as needed. DVTPPX on eliquis Dispo PT eval, OOB, patient with chronic hypercapneic/hypoxic respiratory failure, will require non invasive ventilatory support to decrease work of breathing and improve pulmonary status. If left untreated, high risk for respiratory failure, harm and . Discussed with social work, to arrange trilogy on dc Anticipate SNF vs home with family in 2-3 days as improves. Plan discussed with nursing, all questions answered. Care co-ordinated with pulmonary and social work. Visit type - Emergency Visit Emergency Visit: Yes ED Registration Date: 10/21/18 Care time: The patient presented to the Emergency Department on the above date and was hospitalized for further evaluation of their emergent condition. - New Patient This patient is new to me today: No - Critical Care Critical Care patient: No - Discharge Referral Referred to [facility] Med P.C.: No
[2018-10-26] MEDS: ATORVASTATIN CA 40 MG TABLET (FP) PO SCH (22:26)
[2018-10-27] MEDS: INSULIN SLIDING SCALE (NOVOLOG) 1 VIAL SQ SCH ×4 (06:25→21:24)
[2018-10-27] MEDS: INSULIN (LEVEMIR) 100 UNITS/ML UNITS SQ SCH ×2 (06:25→21:24)
[2018-10-27] MEDS ORDERED: PT OWN MED DRAWER 7, Y5N ONE ×2 (08:05→09:14)
[2018-10-27 08:30] LABS: BASO % 0.1 % (0-2.0); EOS % 0.1 % (0-4.5); HEMOGLOBIN 10.1 GM/dL (10.7-15.3); LYMPH % 7.5 % (8-40); MCH 20.2 pg (25.7-33.7); MCHC 30.5 g/dl (32.0-36.0); MEAN CELL VOLUME 66.2 fl (80-96); MEAN PLT VOLUME 8.7 fl (7.5-11.1); MONO % 3.2 % (3.8-10.2); NEUT % 89.1 % (42.8-82.8); PLATELET COUNT 233 K/MM3 (134-434); RBC 4.99 M/mm3 (3.60-5.2); RDW 16.5 % (11.6-15.6); WHITE BLOOD COUNT 4.7 K/mm3 (4.0-10.0)
[2018-10-27 08:47] LABS: ANION GAP 6 MMOL/L (8-16); BLOOD UREA NITROGEN 33.5 mg/dL (7-18); CHLORIDE 91 mmol/L (98-107); CO2 > 45 mmol/L (21-32); CREATININE 0.9 mg/dL (0.55-1.3); GLUCOSE,RANDOM 185 mg/dL (74-106); MAGNESIUM 2.6 mg/dL (1.8-2.4); PHOSPHOROUS 3.4 mg/dL (2.5-4.9); POTASSIUM 3.8 mmol/L (3.5-5.1); SODIUM 142 mmol/L (136-145)
[2018-10-27] MEDS: FUROSEMIDE 40 MG/4 ML INJECTABLE VIAL IVPUSH SCH (09:11)
[2018-10-27] MEDS: metoPROLOL SUCCINATE 25 MG TAB.SR.24H (FP) PO SCH ×2 (09:11→21:25)
[2018-10-27] MEDS: PANTOPRAZOLE 40 MG TABLET (FP) PO SCH (09:11)
[2018-10-27] MEDS: APIXABAN 5 MG TABLET PO SCH ×2 (09:11→21:24)
[2018-10-27] MEDS: LEVOTHYROXINE SODIUM 100 MCG VIAL IVPUSH SCH (09:15)
--- NOTE | 2018-10-27 09:20 | PN ---
Progress Note (short form) - Note Progress Note: Neurology CHIEF COMPLAINT: AMS PCP: Shantanu HISTORY OF PRESENT ILLNESS: 83 y/o female with a history of DM, HTN, HLD, [place] in 2013, COPD on 2 L, diastolic /systolic CHF, DM and seizures who presented for AMS. Reportedly at 10 am on morning of admission, patient's reported her right side was shaking for about 1-3 minutes, her eyes were darting back and forth and after she did not know the name of her daughter and was very confused. The night before she had a hallucination and reportedly believed someone was in her bedroom. From 10 am - 3pm on day of admission she was confused but mental status did improve. Reportedly with seizure like event in February. Patient was told she does not need any anti seizure medications. 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 She has had hallucinations in the past but only at the hospital. Patient is incontinent at baseline, family unaware if she voided during this event. Patient has no complaints. Patient is compliant with the medication. On admission, CT head completed and without acute changes. Of note, Blood gas completed and patient with intial PH 7.19, pC02 107, now improved since. Not wearing facemask during my evaluation this morning, comfortably breathing on room air. CT chest completed, airway disease noted. EEG completed , report reviewed, no epileptiform activity. Met with son at bedside and she is well appearing. manager renewable energy note reviewed, being requested for Trilogy machine. Allergies Penicillins Allergy (Verified 04/12/18 10:51) Apple juice Allergy (Uncoded 04/12/18 10:51) HOME MEDICATIONS: Home Medications Medication Instructions Recorded Insulin Lispro [Humalog] 0 unit SQ TIDCM PRN 03/02/14 Apixaban [Eliquis -] 5 mg PO BID #60 tablet 06/09/17 Insulin (Levemir) [Levemir Vial] 15 unit SQ HS 07/16/17 Furosemide [Lasix] 40 mg PO DAILY #30 tablet 07/20/17 Levothyroxine [Synthroid -] 25 mcg PO DAILY 10/27/17 Atorvastatin Ca [Lipitor] 40 mg PO HS #30 tablet 11/04/17 Pantoprazole Sodium [Protonix -] 40 mg PO DAILY #30 tablet.ec 11/04/17 Metoprolol Succinate [Toprol XL -] 25 mg PO BID 10/21/18 Active Medications Al Hydroxide/Mg Hydroxide (Mylanta Oral Suspension -) 30 ml PO Q6H PRN PRN Reason: DYSPEPSIA Last Admin: 10/24/18 17:17 Dose: 30 ml Apixaban (Eliquis -) 5 mg PO BID [facility] Last Admin: 10/27/18 09:11 Dose: 5 mg Atorvastatin Calcium (Lipitor -) 40 mg PO HS [facility] Last Admin: 10/26/18 22:26 Dose: 40 mg Furosemide (Lasix Injection -) 40 mg IVPUSH DAILY [facility] Last Admin: 10/27/18 09:11 Dose: 40 mg Insulin Aspart (Novolog Vial Sliding Scale -) 1 vial SQ ACHS [facility]; Protocol Last Admin: 10/27/18 06:25 Dose: 2 units Insulin Detemir (Levemir Vial) 20 units SQ BID@0700,2200 [facility] Last Admin: 10/27/18 06:25 Dose: 20 units Levothyroxine Sodium (Synthroid Injection -) 25 mcg IVPUSH DAILY [facility] Last Admin: 10/27/18 09:15 Dose: 25 mcg Methylprednisolone Sodium Succinate (Solu-Medrol -) 40 mg IVPUSH DAILY [facility] Last Admin: 10/27/18 09:11 Dose: 40 mg Metoprolol Succinate (Toprol Xl -) 25 mg PO BID [facility] Last Admin: 10/27/18 09:11 Dose: 25 mg Pantoprazole Sodium (Protonix -) 40 mg PO DAILY [facility] Last Admin: 10/27/18 09:11 Dose: 40 mg PHYSICAL EXAMINATION Vital Signs Period Temp Pulse Resp BP Sys/Gardner Pulse Ox Last 24 Hr 97.6 F-98.3 F 57-86 20-20 115-138/44-69 96-100 GENERAL: Awake, alert, and fully oriented, in no acute distress. HEAD: Normal with no signs of trauma. EYES: Pupils equal, round and reactive to light, extraocular movements intact NECK: Normal range of motion LUNGS: Breath sounds equal, clear to auscultation bilaterally. No wheezes, and no crackles. No accessory muscle use. HEART: Regular rate and rhythm, normal S1 and S2 without murmur, rub or gallop. ABDOMEN: Soft, nontender, not distended, normoactive bowel sounds, no guarding, no rebound, no masses. MUSCULOSKELETAL: Normal range of motion at all joints. Pain in joints LOWER EXTREMITIES: 2+ pulses, warm, well-perfused. No calf tenderness. No peripheral edema. NEUROLOGICAL: Cranial nerves II-XII intact. Normal speech. decreased sensation on R side, 5-/5 on R, 5/5 on L, gait deferred PSYCHIATRIC: Cooperative. Good eye contact. Appropriate mood and affect. SKIN: Warm, dry, normal turgor, no rashes or lesions noted, normal capillary refill. CBCD WBC 4.7 K/mm3 (4.0-10.0) 10/27/18 07:10 RBC 4.99 M/mm3 (3.60-5.2) 10/27/18 07:10 Hgb 10.1 GM/dL (10.7-15.3) L 10/27/18 07:10 Hct 33.0 % (32.4-45.2) 10/27/18 07:10 MCV 66.2 fl (80-96) L 10/27/18 07:10 MCHC 30.5 g/dl (32.0-36.0) L 10/27/18 07:10 RDW 16.5 % (11.6-15.6) H 10/27/18 07:10 Plt Count 233 K/MM3 (134-434) 10/27/18 07:10 MPV 8.7 fl (7.5-11.1) 10/27/18 07:10 CMP Sodium 142 mmol/L (136-145) 10/27/18 07:10 Potassium 3.8 mmol/L (3.5-5.1) 10/27/18 07:10 Chloride 91 mmol/L (98-107) L 10/27/18 07:10 Carbon Dioxide > 45 mmol/L (21-32) H 10/27/18 07:10 Anion Gap 6 MMOL/L (8-16) L 10/27/18 07:10 BUN 33.5 mg/dL (7-18) H 10/27/18 07:10 Creatinine 0.9 mg/dL (0.55-1.3) 10/27/18 07:10 Random Glucose 185 mg/dL (74-106) H 10/27/18 07:10 Calcium 9.0 mg/dL (8.5-10.1) 10/27/18 07:10 Total Bilirubin 1.5 mg/dL (0.2-1) H 10/24/18 06:35 AST 17 U/L (15-37) 10/24/18 06:35 ALT 15 U/L (13-61) 10/24/18 06:35 Alkaline Phosphatase 63 U/L (45-117) 10/24/18 06:35 Total Protein 7.6 g/dl (6.4-8.2) 10/24/18 06:35 Albumin 3.2 g/dl (3.4-5.0) L 10/24/18 06:35 CARDIAC ENZYMES Creatine Kinase 67 U/L (26-192) 10/21/18 14:54 Troponin I 0.09 ng/ml (0.00-0.05) H 10/21/18 19:55 ASSESSMENT/PLAN: 83 y/o female with a history of DM, HTN, HLD, [place] in 2013, COPD on 2 L, diastolic /systolic CHF, DM and seizures who presented for AMS. Reportedly at 10 am on morning of admission, patient's reported her right side was shaking for about 1-3 minutes, her eyes were darting back and forth and after she did not know the name of her daughter and was very confused. The night before she had a hallucination and reportedly believed someone was in her bedroom. From 10 am - 3pm on day of admission she was confused but mental status did improve. Reportedly with seizure like event in February. Patient was told she does not need any anti seizure medications. 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 She has had hallucinations in the past but only at the hospital. Patient is incontinent at baseline, family unaware if she voided during this event. Patient has no complaints. Patient is compliant with the medication. On admission, CT head completed and without acute changes. Of note, Blood gas completed and patient with intial PH 7.19, pC02 107, now improved since. Not wearing facemask during my evaluation this morning, comfortably breathing on room air. CT chest completed, airway disease noted. EEG completed , report reviewed, no epileptiform activity. Met with son at bedside and she is well appearing. manager renewable energy note reviewed, being requested for Trilogy machine. Continue respiratory mgmt and follow up. Monitor blood pressure, maintain normotensive range, continue toprolol, furosemide. Continue Statin 40mg , lipid profile reviewed. On Eliquis for afib.
[2018-10-27] MEDS ORDERED: methylPREDNISolone NA SUCC 40 MG/1 ML VIAL IVPUSH SCH (10:00)
--- NOTE | 2018-10-27 10:18 | PN ---
Teaching Attending Note Name of Resident: Marisol Barrera ATTENDING PHYSICIAN STATEMENT I saw and evaluated the patient. I reviewed the resident's note and discussed the case with the resident. I agree with the resident's findings and plan as documented with exceptions below. SUBJECTIVE: Patient seen and examined. Breathing improved, no complaints, son at bedside. OBJECTIVE: Vital Signs Period Temp Pulse Resp BP Sys/Gardner Pulse Ox Last 24 Hr 97.6 F-98.3 F 57-86 20-20 115-138/44-69 96-100 Intake & Output 10/24/18 10/25/18 10/26/18 10/27/18 23:59 23:59 23:59 23:59 Intake Total 1080 560 860 10 Balance 1080 560 860 10 Weight 216 lb 216 lb 9.6 oz 217 lb 1.6 oz 218 lb 3.2 oz General: improved breathing, no use of accessory muscles, able to speak in full sentences CVS:S1s2 irregular Neck: soft, supple, improved neck vein distension Chest: improved air entry, few scattered wheezing Abdomen:Soft, obese, NT Extremities: improved pedal edema neuro: AAOX2, appropriately conversant, improved exam Home Medications Medication Instructions Recorded Insulin Lispro [Humalog] 0 unit SQ TIDCM PRN 03/02/14 Apixaban [Eliquis -] 5 mg PO BID #60 tablet 06/09/17 Insulin (Levemir) [Levemir Vial] 15 unit SQ HS 07/16/17 Furosemide [Lasix] 40 mg PO DAILY #30 tablet 07/20/17 Levothyroxine [Synthroid -] 25 mcg PO DAILY 10/27/17 Atorvastatin Ca [Lipitor] 40 mg PO HS #30 tablet 11/04/17 Pantoprazole Sodium [Protonix -] 40 mg PO DAILY #30 tablet.ec 11/04/17 Metoprolol Succinate [Toprol XL -] 25 mg PO BID 10/21/18 Active Medications Al Hydroxide/Mg Hydroxide (Mylanta Oral Suspension -) 30 ml PO Q6H PRN PRN Reason: DYSPEPSIA Last Admin: 10/24/18 17:17 Dose: 30 ml Apixaban (Eliquis -) 5 mg PO BID [facility] Last Admin: 10/27/18 09:11 Dose: 5 mg Atorvastatin Calcium (Lipitor -) 40 mg PO HS [facility] Last Admin: 10/26/18 22:26 Dose: 40 mg Insulin Aspart (Novolog Vial Sliding Scale -) 1 vial SQ ACHS [facility]; Protocol Last Admin: 10/27/18 06:25 Dose: 2 units Insulin Detemir (Levemir Vial) 20 units SQ BID@0700,2200 [facility] Last Admin: 10/27/18 06:25 Dose: 20 units Levothyroxine Sodium (Synthroid Injection -) 25 mcg IVPUSH DAILY [facility] Last Admin: 10/27/18 09:15 Dose: 25 mcg Metoprolol Succinate (Toprol Xl -) 25 mg PO BID [facility] Last Admin: 10/27/18 09:11 Dose: 25 mg Pantoprazole Sodium (Protonix -) 40 mg PO DAILY [facility] Last Admin: 10/27/18 09:11 Dose: 40 mg Prednisone (Deltasone -) 40 mg PO DAILY [facility] Laboratory Results - last 24 hr 10/22/18 10/26/18 10/26/18 10:25 06:57 11:30 WBC RBC Hgb Hct MCV MCH MCHC RDW Plt Count MPV Absolute Neuts (auto) Neutrophils % Neutrophils % (Manual) 90.9 H Band Neutrophils % 0.0 Lymphocytes % Lymphocytes % (Manual) 4.1 L D Monocytes % Monocytes % (Manual) 1 L D Eosinophils % Eosinophils % (Manual) 0.0 Basophils % Basophils % (Manual) 0.0 Myelocytes % (Man) 0 Promyelocytes % (Man) 0 Blast Cells % (Manual) 0 Nucleated RBC % Metamyelocytes 1 D Hypochromia 1+ Platelet Estimate Normal Platelet Comment Present Polychromasia 2+ Poikilocytosis 1+ Basophilic Stippling 2+ Anisocytosis 2+ Microcytosis 1+ Macrocytosis 0 Tear Drop Cells 1+ Stomatocytes 1+ Sodium Potassium Chloride Carbon Dioxide Anion Gap BUN Creatinine Est GFR (CKD-EPI)AfAm Est GFR (CKD-EPI)NonAf POC Glucometer 268 Random Glucose Calcium Phosphorus Magnesium Free T4 (Dialysis) 1.8 H 10/26/18 10/26/18 10/27/18 17:00 22:28 06:24 WBC RBC Hgb Hct MCV MCH MCHC RDW Plt Count MPV Absolute Neuts (auto) Neutrophils % Neutrophils % (Manual) Band Neutrophils % Lymphocytes % Lymphocytes % (Manual) Monocytes % Monocytes % (Manual) Eosinophils % Eosinophils % (Manual) Basophils % Basophils % (Manual) Myelocytes % (Man) Promyelocytes % (Man) Blast Cells % (Manual) Nucleated RBC % Metamyelocytes Hypochromia Platelet Estimate Platelet Comment Polychromasia Poikilocytosis Basophilic Stippling Anisocytosis Microcytosis Macrocytosis Tear Drop Cells Stomatocytes Sodium Potassium Chloride Carbon Dioxide Anion Gap BUN Creatinine Est GFR (CKD-EPI)AfAm Est GFR (CKD-EPI)NonAf POC Glucometer 362 360 199 Random Glucose Calcium Phosphorus Magnesium Free T4 (Dialysis) 10/27/18 10/27/18 07:10 07:10 WBC 4.7 RBC 4.99 Hgb 10.1 L Hct 33.0 MCV 66.2 L MCH 20.2 L MCHC 30.5 L RDW 16.5 H Plt Count 233 MPV 8.7 Absolute Neuts (auto) 4.2 Neutrophils % 89.1 H Neutrophils % (Manual) Band Neutrophils % Lymphocytes % 7.5 L D Lymphocytes % (Manual) Monocytes % 3.2 L Monocytes % (Manual) Eosinophils % 0.1 D Eosinophils % (Manual) Basophils % 0.1 Basophils % (Manual) Myelocytes % (Man) Promyelocytes % (Man) Blast Cells % (Manual) Nucleated RBC % 0 Metamyelocytes Hypochromia Platelet Estimate Platelet Comment Polychromasia Poikilocytosis Basophilic Stippling Anisocytosis Microcytosis Macrocytosis Tear Drop Cells Stomatocytes Sodium 142 Potassium 3.8 Chloride 91 L Carbon Dioxide > 45 H Anion Gap 6 L BUN 33.5 H Creatinine 0.9 Est GFR (CKD-EPI)AfAm 69.01 Est GFR (CKD-EPI)NonAf 59.55 POC Glucometer Random Glucose 185 H Calcium 9.0 Phosphorus 3.4 Magnesium 2.6 H Free T4 (Dialysis) ASSESSMENT AND PLAN: 83 yof with PMhx of COPD on 2L home oxygen, chronic hypoxic and hypecapnic respiratory failure, CAD/TN/stent, PAF, chronic systolic and diastolic heart failure, type 2 DM, hypothyroidism, hyperlipidemia, HTN, PAD, possible seizures brought in by family with AMS/increased sleepiness. -Acute on chronic hypoxic/hypercapneic respiratory failure -Acute on chronic systolic/diastolic HF exacerbation -Suspected acute COPD exacerbation -Metabolic alkalosis -Afib with RVR, mostly in NSR now -AMS, likely toxic metabolic encephalopathy from above, less likely seizure or neurological process -IDDM -CAD/TN/stent -Hypothyroidism -HLD -HTN -PAD -Possible seizure disorder Plan: Clinically improved. Change to PO lasix/prednisone Standing/prn nebs. Plan for trilogy on dc. Social work aware. CT chest noted, given clinical improvement and absence of fevers/WBC, hold off on abx. Low threshold for abx if clinical concerns. Pulmonary Cardiology input appreciated. 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 Follow up if candidate for PCI. 2D echo results reviewed. Continue Metoprolol/statin/eliquis. HCo3, noted, combined alkalosis from respiratory compensation and lasix. Discuss with pulmonary if would benefit from diamox. lasix tapered TSH noted, follow T4/T3, suspect sick euthyroid, outpatient follow up. Repeat CT head and EEG with no acute concerns or seizures. Neurology input noted, hold off on AEDs Speech/swallow eval noted. ISS, diabetic diet. Levemir titrated upto 20 units BID. DVTPPX on eliquis Dispo PT eval, OOB, Discussed with patient and son, agreable to SNF if deemed appropriate. Discussed CM. Anticipate d/c in 24-48 hours if continues to improve, disposition/trilogy arranged. Plan discussed with patient,son, RN and CM
--- NOTE | 2018-10-27 10:35 | PN ---
Progress Note (short form) - Note Progress Note: s: no chest pain, palps, dizziness. TELE: sinus, PVCs Current Medications Al Hydroxide/Mg Hydroxide (Mylanta Oral Suspension -) 30 ml PO Q6H PRN PRN Reason: DYSPEPSIA Last Admin: 10/24/18 17:17 Dose: 30 ml Apixaban (Eliquis -) 5 mg PO BID REPLAC[facility] BY [facility] Last Admin: 10/27/18 09:11 Dose: 5 mg Atorvastatin Calcium (Lipitor -) 40 mg PO HS REPLACED BY [facility] Last Admin: 10/26/18 22:26 Dose: 40 mg Insulin Aspart (Novolog Vial Sliding Scale -) 1 vial SQ ACHS [facility]PLACED BY [facility]; Protocol Last Admin: 10/27/18 06:25 Dose: 2 units Insulin Detemir (Levemir Vial) 20 units SQ BID@0700,2200 [facility]PLAC[facility] Last Admin: 10/27/18 06:25 Dose: 20 units Levothyroxine Sodium (Synthroid Injection -) 25 mcg IVPUSH DAILY [facility]PL[facility] Last Admin: 10/27/18 09:15 Dose: 25 mcg Metoprolol Succinate (Toprol Xl -) 25 mg PO BID [facility]PLACED BY [facility] Last Admin: 10/27/18 09:11 Dose: 25 mg Pantoprazole Sodium (Protonix -) 40 mg PO DAILY [facility] Last Admin: 10/27/18 09:11 Dose: 40 mg Prednisone (Deltasone -) 40 mg PO DAILY [facility]PLACED BY [facility] Vital Signs Period Temp Pulse Resp BP Sys/Gardner Pulse Ox Last 24 Hr 97.6 F-98.3 F 57-86 20-20 115-138/44-69 96-100 Constitutional: Yes: Calm Cardiovascular: Yes: Pulse Irregular Respiratory: Yes: scattered expiratory wheezes Gastrointestinal: Yes: Soft Edema: No Neurological: Yes: Alert not agitated no jaundice, diaphoresis - ....Imaging EKG: Image Reviewed Assessment/Plan cath 07/2018: lm 50, mlad 80 (isr), d1 90, lcx 90, mrca 70 echo 06/2018: mild lvh, lvef 40-45, g2dd, apical hk, nl rv, mild mr, mild phtn A/P: 83 yr old lady with known CAD/pci, chf, HTN, HPL, DM, pad, obesity, pafib (dx 05/2017 when admitted for copd) here with ams. AMS possible seizure: -plans per neuro Acute exacerbation copd, PNA/CO2 retention: -steroids, NIPPV per pulm -pt on home O2 Acute mixed diastolic/systolic CHF (EF mid-range 40-45%), mild pulm HTN: -here with likely a.e. copd > mild chf decomp - diuresed with IV lasix while on IV steroids, transitioned to prednisone today - appears euvolemic, restart lasix 40 mg PO daily -home O2 therapy as prior plan CAD: -borderline trop elevation with flat trend and nl ck, similar to prior baseline values, not c/w acs -pt was in [place] and admitted for chf recently and had cath showing 3vd (cath 07/2018: lm 50, mlad 80 (isr), d1 90, lcx 90, mrca 70) and deemed high risk for cabg, no pci done -given her recurrent chf, will re-consider revascularization options with [place] interventional cardio once HF and copd are stabilized -remains without angina -cont bb, ac, statin PAF: -mostly in sinus here--cont bb -cont eliquis 5 bid for AC HTN: -bp controlled -cont current meds NSVT: -Keep K+ > 4 and Mg2+ > 2; cont BB
[2018-10-27 11:14] VITALS: BMI 39.9
--- NOTE | 2018-10-27 11:22 | PN ---
Progress Note, BIG DATA LEAD - Note Progress Note: Selected Entries 10/26/18 10/26/18 10/26/18 10:01 14:00 18:45 Breakfast 75% Diet Tolerated Well Well Well Lunch 75% Supper 100% 10/27/18 11:05 Breakfast 75% Diet Tolerated Well Lunch Supper Laboratory Tests 10/27/18 07:10 WBC 4.7 Pt now upgraded to Dys chopped/thin liquids with good tolerance.
--- NOTE | 2018-10-27 12:00 | PN ---
Progress Note (short form) - Note Progress Note: PULMONARY States breathing better. No cough or wheezing. Vital Signs Period Temp Pulse Resp BP Sys/Gardner Pulse Ox Last 24 Hr 97.6 F-98.3 F 57-86 20-20 115-138/44-69 96-100 Gen: NAD at rest Heart: RRR Lung: decreased breath sounds at the bases Abd: soft, nontender Ext: no edema CBC, BMP 10/27/18 07:10 10/27/18 07:10 Active Medications Al Hydroxide/Mg Hydroxide (Mylanta Oral Suspension -) 30 ml PO Q6H PRN PRN Reason: DYSPEPSIA Last Admin: 10/24/18 17:17 Dose: 30 ml Apixaban (Eliquis -) 5 mg PO BID [facility] Last Admin: 10/27/18 09:11 Dose: 5 mg Atorvastatin Calcium (Lipitor -) 40 mg PO HS [facility] Last Admin: 10/26/18 22:26 Dose: 40 mg Furosemide (Lasix -) 40 mg PO DAILY [facility] Insulin Aspart (Novolog Vial Sliding Scale -) 1 vial SQ [facility]; Protocol Last Admin: 10/27/18 11:45 Dose: 4 units Insulin Detemir (Levemir Vial) 20 units SQ BID@0700,2200 [facility] Last Admin: 10/27/18 06:25 Dose: 20 units Levothyroxine Sodium (Synthroid Injection -) 25 mcg IVPUSH DAILY [facility] Last Admin: 10/27/18 09:15 Dose: 25 mcg Metoprolol Succinate (Toprol Xl -) 25 mg PO BID [facility] Last Admin: 10/27/18 09:11 Dose: 25 mg Pantoprazole Sodium (Protonix -) 40 mg PO DAILY [facility] Last Admin: 10/27/18 09:11 Dose: 40 mg Prednisone (Deltasone -) 40 mg PO DAILY [facility] A/P Acute on Chronic Hypoxic and Hypercapneic Respiratory Failure improving Acute on Chronic Systolic/Diastolic Heart Failure Acute COPD Exacerbation Paroxysmal Atrial Fibrillation CAD HTN DM Hypothyroidism Hyperlipidemia - prednisone taper - inhaled bronchodilators - O2 to keep SpO2 88-92% - lasix - monitor urine output, creatinine - rate controlled - continue anticoagulation - agree with trilogy placement
--- NOTE | 2018-10-27 18:40 | PN ---
Physical Exam: SUBJECTIVE: Patient seen and examined. Sitting in chair with NC. No chest pain, no dyspnea. Per pt, leg swelling is improved. Son by bedside. Pt yet to ambulate. OBJECTIVE: Vital Signs Period Temp Pulse Resp BP Sys/Gardner Pulse Ox Last 24 Hr 97.7 F-98.3 F 54-86 18-20 118-145/44-59 95-100 GENERAL: The patient is awake, alert, and fully oriented, in no acute distress. HEAD: Normal with no signs of trauma. EYES: PERRL, extraocular movements intact, ENT: moist mucous membranes. NC-4-5L NECK: supple. LUNGS: Breath sounds reduced b/l liungs, few scattered basal crackles, no wheezes HEART: Regular rate and rhythm, S1, S2 ABDOMEN: Soft, nontender, nondistended, normoactive bowel sounds EXTREMITIES: 2+ pulses, warm, well-perfused, mild b/l edema. NEUROLOGICAL: Cranial nerves II through XII grossly intact. Normal speech, gait not observed. PSYCH: Normal mood, normal affect. Laboratory Results - last 24 hr 10/22/18 10/26/18 10/27/18 10:25 22:28 06:24 WBC RBC Hgb Hct MCV MCH MCHC RDW Plt Count MPV Absolute Neuts (auto) Neutrophils % Lymphocytes % Monocytes % Eosinophils % Basophils % Nucleated RBC % Sodium Potassium Chloride Carbon Dioxide Anion Gap BUN Creatinine Est GFR (CKD-EPI)AfAm Est GFR (CKD-EPI)NonAf POC Glucometer 360 199 Random Glucose Calcium Phosphorus Magnesium Free T4 (Dialysis) 1.8 H 10/27/18 10/27/18 10/27/18 07:10 07:10 11:43 WBC 4.7 RBC 4.99 Hgb 10.1 L Hct 33.0 MCV 66.2 L MCH 20.2 L MCHC 30.5 L RDW 16.5 H Plt Count 233 MPV 8.7 Absolute Neuts (auto) 4.2 Neutrophils % 89.1 H Lymphocytes % 7.5 L D Monocytes % 3.2 L Eosinophils % 0.1 D Basophils % 0.1 Nucleated RBC % 0 Sodium 142 Potassium 3.8 Chloride 91 L Carbon Dioxide > 45 H Anion Gap 6 L BUN 33.5 H Creatinine 0.9 Est GFR (CKD-EPI)AfAm 69.01 Est GFR (CKD-EPI)NonAf 59.55 POC Glucometer 206 Random Glucose 185 H Calcium 9.0 Phosphorus 3.4 Magnesium 2.6 H Free T4 (Dialysis) 10/27/18 16:51 WBC RBC Hgb Hct MCV MCH MCHC RDW Plt Count MPV Absolute Neuts (auto) Neutrophils % Lymphocytes % Monocytes % Eosinophils % Basophils % Nucleated RBC % Sodium Potassium Chloride Carbon Dioxide Anion Gap BUN Creatinine Est GFR (CKD-EPI)AfAm Est GFR (CKD-EPI)NonAf POC Glucometer 163 Random Glucose Calcium Phosphorus Magnesium Free T4 (Dialysis) Active Medications Generic Name Dose Route Start Last Admin Trade Name Freq PRN Reason Stop Dose Admin Al Hydroxide/Mg Hydroxide 30 ml 10/24/18 17:09 10/24/18 17:17 Mylanta Oral Suspension - PO 30 ml Q6H PRN Administration DYSPEPSIA Apixaban 5 mg 10/21/18 22:00 10/27/18 09:11 Eliquis - PO 5 mg BID [facility] Administration Atorvastatin Calcium 40 mg 10/21/18 22:00 10/26/18 22:26 Lipitor - PO 40 mg HS [facility] Administration Furosemide 40 mg 10/28/18 10:00 Lasix - PO DAILY [facility] Insulin Aspart 1 vial 10/24/18 16:44 10/27/18 16:54 Novolog Vial Sliding Scale - SQ 2 units ACHS [facility] Administration Protocol Insulin Detemir 20 units 10/25/18 10:54 10/27/18 06:25 Levemir Vial SQ 20 units BID@0700,2200 [facility] Administration Levothyroxine Sodium 25 mcg 10/22/18 10:00 10/27/18 09:15 Synthroid Injection - IVPUSH 25 mcg DAILY [facility] Administration Metoprolol Succinate 25 mg 10/21/18 22:00 10/27/18 09:11 Toprol Xl - PO 25 mg BID [facility] Administration Pantoprazole Sodium 40 mg 10/24/18 17:15 10/27/18 09:11 Protonix - PO 40 mg DAILY [facility] Administration Prednisone 40 mg 10/28/18 10:00 Deltasone - PO DAILY [facility] Ambulatory Orders Insulin Lispro [Humalog] 0 unit SQ TIDCM PRN 03/02/14 Apixaban [Eliquis -] 5 mg PO BID #60 tablet 06/09/17 Insulin (Levemir) [Levemir Vial] 15 unit SQ HS 07/16/17 Furosemide [Lasix] 40 mg PO DAILY #30 tablet 07/20/17 Levothyroxine [Synthroid -] 25 mcg PO DAILY 10/27/17 Atorvastatin Ca [Lipitor] 40 mg PO HS #30 tablet 11/04/17 Pantoprazole Sodium [Protonix -] 40 mg PO DAILY #30 tablet.ec 11/04/17 Metoprolol Succinate [Toprol XL -] 25 mg PO BID 10/21/18 Current Medications Al Hydroxide/Mg Hydroxide (Mylanta Oral Suspension -) 30 ml PO Q6H PRN PRN Reason: DYSPEPSIA Last Admin: 10/24/18 17:17 Dose: 30 ml Apixaban (Eliquis -) 5 mg PO BID [facility] Last Admin: 10/27/18 21:24 Dose: 5 mg Atorvastatin Calcium (Lipitor -) 40 mg PO HS [facility] Last Admin: 10/27/18 21:24 Dose: 40 mg Furosemide (Lasix -) 40 mg PO DAILY [facility] Insulin Aspart (Novolog Vial Sliding Scale -) 1 vial SQ [facility]; Protocol Last Admin: 10/27/18 21:24 Dose: 4 units Insulin Detemir (Levemir Vial) 20 units SQ BID@0700,2200 [facility] Last Admin: 10/27/18 21:24 Dose: 20 units Levothyroxine Sodium (Synthroid Injection -) 25 mcg IVPUSH DAILY [facility] Last Admin: 10/27/18 09:15 Dose: 25 mcg Metoprolol Succinate (Toprol Xl -) 25 mg PO BID [facility] Last Admin: 10/27/18 21:25 Dose: 25 mg Pantoprazole Sodium (Protonix -) 40 mg PO DAILY [facility] Last Admin: 10/27/18 09:11 Dose: 40 mg Prednisone (Deltasone -) 40 mg PO DAILY [facility] ASSESSMENT/PLAN: 83 yof with PMhx of COPD on 2L home oxygen, chronic hypoxic and hypecapnic respiratory failure, CAD/LA/stent, PAF, chronic systolic and diastolic heart failure, type 2 DM, hypothyroidism, hyperlipidemia, HTN, PAD, possible seizures brought in by family with AMS/increased sleepiness. #AMS- possibly in setting of severe hypercapnic respiratory failure, less likely seizure Pt back to baseline mental status Neuro on board- pt not on AEDs Prior admission for AMS Continue to monitor #severe acute on chronic hypoxic hypercapnic respiratory failure Likely in setting of COPD exacerbation GOLD Class D Pt on higher NC oxygen demand than prior at home when I saw COPD on 2L home oxygen Now requiring bipap at night and PRN Trilogy device request in, pending insurance approval PO steroids started today Cont supplemental oxygen to maintain sats 90% #chronic systolic and diastolic heart failure Exacerbated by COPD exacerbation EF mid-range 40-45%, Pt started on PO lasix No SOB at rest Cont to monitor , #mild pulm HTN Likely secondary to COPD Class II/III Pt not SOB at rest #CAD/LA/stent Cont metoprolol, AC, statins Per Cards- in [place], cath showing 3vd (cath 07/2018: lm 50, mlad 80 (isr), d1 90, lcx 90, mrca 70) and deemed high risk for cabg, no pci done -given her recurrent chf, will re-consider revascularization options with [place] interventional cardio once HF and copd are stabilized Keep K+ > 4 and Mg2+ > 2 #PAF dx 05/2017 Rate controlled [id number] score-9 (12.2% stroke risk per year) Cont AC with Eliquis 5mg bid Cont metoprolol XL 25 bid #type 2 DM Levemir 20u bid ISS BGM BMP #hypothyroidism Cont levothyroxine 25mcg TSH low. T3 also low- could be sick euthyroid syndrome For repeat in 4-6 weeks as outpt #hyperlipidemia Cont lipitor 40HS #HTN Cont metoprolol, lasix 40PO #PAD Cont to monitor #possible seizures Repeat CT head and EEG with no acute concerns or seizures. Neurology input noted, hold off on AEDs Cont to monitor FEN No standing iv fluids PO fluid restriction with CHF and diuresis Monitor lytes, replete as needed Dys chopped/thin liquids with good tolerance. Dispo: Awaiting insurance approval for trilogy device for likely dc Family open to SNF PT, OOB Code: DNR/DNI Visit type - Emergency Visit Emergency Visit: Yes ED Registration Date: 10/21/18 Care time: The patient presented to the Emergency Department on the above date and was hospitalized for further evaluation of their emergent condition. - New Patient This patient is new to me today: No - Critical Care Critical Care patient: No
[2018-10-27] MEDS ORDERED: INSULIN (NOVOLOG) ASPART 100 UNITS/ML 10ML VIAL ONE (20:42)
[2018-10-27] MEDS: ATORVASTATIN CA 40 MG TABLET (FP) PO SCH (21:24)
[2018-10-28] MEDS: INSULIN SLIDING SCALE (NOVOLOG) 1 VIAL SQ SCH ×2 (06:56→12:09)
[2018-10-28] MEDS: INSULIN (LEVEMIR) 100 UNITS/ML UNITS SQ SCH (06:56)
--- NOTE | 2018-10-28 07:50 | PN ---
Physical Exam: SUBJECTIVE: Patient seen and examined OBJECTIVE: Vital Signs Period Temp Pulse Resp BP Sys/Gardner Pulse Ox Last 24 Hr 97.4 F-99.2 F 52-81 18-20 114-145/44-69 95-96 GENERAL: The patient is awake, alert, and fully oriented, in no acute distress. HEAD: Normal with no signs of trauma. EYES: PERRL, extraocular movements intact, sclera anicteric, conjunctiva clear. No ptosis. ENT: Ears normal, nares patent, oropharynx clear without exudates, moist mucous membranes. NECK: Trachea midline, full range of motion, supple. LUNGS: Breath sounds equal, clear to auscultation bilaterally, no wheezes, no crackles, no accessory muscle use. HEART: Regular rate and rhythm, S1, S2 without murmur, rub or gallop. ABDOMEN: Soft, nontender, nondistended, normoactive bowel sounds, no guarding, no rebound, no hepatosplenomegaly, no masses. EXTREMITIES: 2+ pulses, warm, well-perfused, no edema. NEUROLOGICAL: Cranial nerves II through XII grossly intact. Normal speech, gait not observed. PSYCH: Normal mood, normal affect. SKIN: Warm, dry, normal turgor, no rashes or lesions noted Laboratory Results - last 24 hr 10/27/18 10/27/18 10/27/18 07:10 07:10 11:43 WBC 4.7 RBC 4.99 Hgb 10.1 L Hct 33.0 MCV 66.2 L MCH 20.2 L MCHC 30.5 L RDW 16.5 H Plt Count 233 MPV 8.7 Absolute Neuts (auto) 4.2 Neutrophils % 89.1 H Lymphocytes % 7.5 L D Monocytes % 3.2 L Eosinophils % 0.1 D Basophils % 0.1 Nucleated RBC % 0 Sodium 142 Potassium 3.8 Chloride 91 L Carbon Dioxide > 45 H Anion Gap 6 L BUN 33.5 H Creatinine 0.9 Est GFR (CKD-EPI)AfAm 69.01 Est GFR (CKD-EPI)NonAf 59.55 POC Glucometer 206 Random Glucose 185 H Calcium 9.0 Phosphorus 3.4 Magnesium 2.6 H 10/27/18 10/27/18 10/28/18 16:51 21:22 06:54 WBC RBC Hgb Hct MCV MCH MCHC RDW Plt Count MPV Absolute Neuts (auto) Neutrophils % Lymphocytes % Monocytes % Eosinophils % Basophils % Nucleated RBC % Sodium Potassium Chloride Carbon Dioxide Anion Gap BUN Creatinine Est GFR (CKD-EPI)AfAm Est GFR (CKD-EPI)NonAf POC Glucometer 163 223 71 Random Glucose Calcium Phosphorus Magnesium Active Medications Generic Name Dose Route Start Last Admin Trade Name Freq PRN Reason Stop Dose Admin Al Hydroxide/Mg Hydroxide 30 ml 10/24/18 17:09 10/24/18 17:17 Mylanta Oral Suspension - PO 30 ml Q6H PRN Administration DYSPEPSIA Apixaban 5 mg 10/21/18 22:00 10/27/18 21:24 Eliquis - PO 5 mg BID [facility]ANN Administration Atorvastatin Calcium 40 mg 10/21/18 22:00 10/27/18 21:24 Lipitor - PO 40 mg HS [facility]ANN Administration Furosemide 40 mg 10/28/18 10:00 Lasix - PO DAILY [facility] Insulin Aspart 1 vial 10/24/18 16:44 10/28/18 06:56 Novolog Vial Sliding Scale - SQ Not Given ACHS [facility] Protocol Insulin Detemir 20 units 10/25/18 10:54 10/28/18 06:56 Levemir Vial SQ Not Given BID@0700,2200 [facility] Levothyroxine Sodium 25 mcg 10/22/18 10:00 10/27/18 09:15 Synthroid Injection - IVPUSH 25 mcg DAILY [facility] Administration Metoprolol Succinate 25 mg 10/21/18 22:00 10/27/18 21:25 Toprol Xl - PO 25 mg BID [facility] Administration Pantoprazole Sodium 40 mg 10/24/18 17:15 10/27/18 09:11 Protonix - PO 40 mg DAILY [facility] Administration Prednisone 40 mg 10/28/18 10:00 Deltasone - PO DAILY [facility] ASSESSMENT/PLAN:
[2018-10-28 08:05] LABS: BASO % 0.8 % (0-2.0); EOS % 1.5 % (0-4.5); HEMATOCRIT 35.9 % (32.4-45.2); HEMOGLOBIN 10.7 GM/dL (10.7-15.3); MCH 20.1 pg (25.7-33.7); MCHC 29.9 g/dl (32.0-36.0); MEAN CELL VOLUME 67.4 fl (80-96); MEAN PLT VOLUME 8.4 fl (7.5-11.1); MONO % 8.8 % (3.8-10.2); NEUT % 67.9 % (42.8-82.8); PLATELET COUNT 251 K/MM3 (134-434); RBC 5.33 M/mm3 (3.60-5.2); RDW 16.3 % (11.6-15.6); WHITE BLOOD COUNT 7.1 K/mm3 (4.0-10.0)
[2018-10-28 08:17] LABS: INR 1.18 (0.83-1.09); PROTHROMBIN TIME (PATIENT) 13.9 SEC (9.7-13.0)
[2018-10-28 08:45] LABS: ALBUMIN 2.9 g/dl (3.4-5.0); ALK PHOS 53 U/L (45-117); ANION GAP 6 MMOL/L (8-16); BILIRUBIN,TOTAL 1.3 mg/dL (0.2-1); BLOOD UREA NITROGEN 28.2 mg/dL (7-18); CHLORIDE 89 mmol/L (98-107); CO2 > 45 mmol/L (21-32); CREATININE 0.9 mg/dL (0.55-1.3); GLUCOSE,RANDOM 102 mg/dL (74-106); MAGNESIUM 2.4 mg/dL (1.8-2.4); PHOSPHOROUS 3.4 mg/dL (2.5-4.9); POTASSIUM 3.4 mmol/L (3.5-5.1); SGOT/AST 20 U/L (15-37); SGPT/ALT 21 U/L (13-61); SODIUM 140 mmol/L (136-145); TOT PROT 6.8 g/dl (6.4-8.2)
[2018-10-28] MEDS ORDERED: PT OWN MED DRAWER 7, Y5N ONE (08:58)
[2018-10-28] MEDS: LEVOTHYROXINE SODIUM 100 MCG VIAL IVPUSH SCH (09:19)
[2018-10-28] MEDS: APIXABAN 5 MG TABLET PO SCH (09:21)
[2018-10-28] MEDS: PANTOPRAZOLE 40 MG TABLET (FP) PO SCH (09:21)
[2018-10-28] MEDS: metoPROLOL SUCCINATE 25 MG TAB.SR.24H (FP) PO SCH (09:21)
--- NOTE | 2018-10-28 09:29 | PN ---
Progress Note (short form) - Note Progress Note: Neurology CHIEF COMPLAINT: AMS PCP: Shantanu HISTORY OF PRESENT ILLNESS: 83 y/o female with a history of DM, HTN, HLD, [place] in 2013, COPD on 2 L, diastolic /systolic CHF, DM and seizures who presented for AMS. Reportedly at 10 am on morning of admission, patient's reported her right side was shaking for about 1-3 minutes, her eyes were darting back and forth and after she did not know the name of her daughter and was very confused. The night before she had a hallucination and reportedly believed someone was in her bedroom. From 10 am - 3pm on day of admission she was confused but mental status did improve. Reportedly with seizure like event in February. Patient was told she does not need any anti seizure medications. 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 She has had hallucinations in the past but only at the hospital. Patient is incontinent at baseline, family unaware if she voided during this event. Patient has no complaints. Patient is compliant with the medication. On admission, CT head completed and without acute changes. Of note, Blood gas completed and patient with intial PH 7.19, pC02 107, now improved since. Not wearing facemask during my evaluation this morning, comfortably breathing on room air. CT chest completed, airway disease noted. EEG completed , report reviewed, no epileptiform activity. Resting comfortably this AM, no respiratory distress and no new neurologic complaints. Allergies Penicillins Allergy (Verified 04/12/18 10:51) Apple juice Allergy (Uncoded 04/12/18 10:51) HOME MEDICATIONS: Home Medications Medication Instructions Recorded Insulin Lispro [Humalog] 0 unit SQ TIDCM PRN 03/02/14 Apixaban [Eliquis -] 5 mg PO BID #60 tablet 06/09/17 Insulin (Levemir) [Levemir Vial] 15 unit SQ HS 07/16/17 Furosemide [Lasix] 40 mg PO DAILY #30 tablet 07/20/17 Levothyroxine [Synthroid -] 25 mcg PO DAILY 10/27/17 Atorvastatin Ca [Lipitor] 40 mg PO HS #30 tablet 11/04/17 Pantoprazole Sodium [Protonix -] 40 mg PO DAILY #30 tablet.ec 11/04/17 Metoprolol Succinate [Toprol XL -] 25 mg PO BID 10/21/18 Active Medications Al Hydroxide/Mg Hydroxide (Mylanta Oral Suspension -) 30 ml PO Q6H PRN PRN Reason: DYSPEPSIA Last Admin: 10/24/18 17:17 Dose: 30 ml Apixaban (Eliquis -) 5 mg PO BID [facility] Last Admin: 10/28/18 09:21 Dose: 5 mg Atorvastatin Calcium (Lipitor -) 40 mg PO HS [facility] Last Admin: 10/27/18 21:24 Dose: 40 mg Furosemide (Lasix -) 40 mg PO DAILY [facility] Last Admin: 10/28/18 09:21 Dose: 40 mg Insulin Aspart (Novolog Vial Sliding Scale -) 1 vial SQ ACHS [facility]; Protocol Last Admin: 10/28/18 06:56 Dose: Not Given Insulin Detemir (Levemir Vial) 20 units SQ BID@0700,2200 [facility] Last Admin: 10/28/18 06:56 Dose: Not Given Levothyroxine Sodium (Synthroid Injection -) 25 mcg IVPUSH DAILY [facility] Last Admin: 10/28/18 09:19 Dose: 25 mcg Metoprolol Succinate (Toprol Xl -) 25 mg PO BID [facility] Last Admin: 10/28/18 09:21 Dose: 25 mg Pantoprazole Sodium (Protonix -) 40 mg PO DAILY [facility] Last Admin: 10/28/18 09:21 Dose: 40 mg Prednisone (Deltasone -) 40 mg PO DAILY [facility] Last Admin: 10/28/18 09:21 Dose: 40 mg PHYSICAL EXAMINATION Vital Signs Period Temp Pulse Resp BP Sys/Gardner Pulse Ox Last 24 Hr 97.4 F-99.2 F 52-81 18-20 114-145/44-69 95-96 GENERAL: Awake, alert, and fully oriented, in no acute distress. HEAD: Normal with no signs of trauma. EYES: Pupils equal, round and reactive to light, extraocular movements intact NECK: Normal range of motion LUNGS: Breath sounds equal, clear to auscultation bilaterally. No wheezes, and no crackles. No accessory muscle use. HEART: Regular rate and rhythm, normal S1 and S2 without murmur, rub or gallop. ABDOMEN: Soft, nontender, not distended, normoactive bowel sounds, no guarding, no rebound, no masses. MUSCULOSKELETAL: Normal range of motion at all joints. Pain in joints LOWER EXTREMITIES: 2+ pulses, warm, well-perfused. No calf tenderness. No peripheral edema. NEUROLOGICAL: Cranial nerves II-XII intact. Normal speech. decreased sensation on R side, 5-/5 on R, 5/5 on L, gait deferred PSYCHIATRIC: Cooperative. Good eye contact. Appropriate mood and affect. SKIN: Warm, dry, normal turgor, no rashes or lesions noted, normal capillary refill. CBCD WBC 7.1 K/mm3 (4.0-10.0) 10/28/18 07:54 RBC 5.33 M/mm3 (3.60-5.2) H 10/28/18 07:54 Hgb 10.7 GM/dL (10.7-15.3) 10/28/18 07:54 Hct 35.9 % (32.4-45.2) 10/28/18 07:54 MCV 67.4 fl (80-96) L 10/28/18 07:54 MCHC 29.9 g/dl (32.0-36.0) L 10/28/18 07:54 RDW 16.3 % (11.6-15.6) H 10/28/18 07:54 Plt Count 251 K/MM3 (134-434) 10/28/18 07:54 MPV 8.4 fl (7.5-11.1) 10/28/18 07:54 CMP Sodium 140 mmol/L (136-145) 10/28/18 07:54 Potassium 3.4 mmol/L (3.5-5.1) L 10/28/18 07:54 Chloride 89 mmol/L (98-107) L 10/28/18 07:54 Carbon Dioxide > 45 mmol/L (21-32) H 10/28/18 07:54 Anion Gap 6 MMOL/L (8-16) L 10/28/18 07:54 BUN 28.2 mg/dL (7-18) H 10/28/18 07:54 Creatinine 0.9 mg/dL (0.55-1.3) 10/28/18 07:54 Random Glucose 102 mg/dL (74-106) 10/28/18 07:54 Calcium 9.0 mg/dL (8.5-10.1) 10/28/18 07:54 Total Bilirubin 1.3 mg/dL (0.2-1) H 10/28/18 07:54 AST 20 U/L (15-37) 10/28/18 07:54 ALT 21 U/L (13-61) 10/28/18 07:54 Alkaline Phosphatase 53 U/L (45-117) 10/28/18 07:54 Total Protein 6.8 g/dl (6.4-8.2) 10/28/18 07:54 Albumin 2.9 g/dl (3.4-5.0) L 10/28/18 07:54 CARDIAC ENZYMES Creatine Kinase 67 U/L (26-192) 10/21/18 14:54 Troponin I 0.09 ng/ml (0.00-0.05) H 10/21/18 19:55 ASSESSMENT/PLAN: 83 y/o female with a history of DM, HTN, HLD, [place] in 2013, COPD on 2 L, diastolic /systolic CHF, DM and seizures who presented for AMS. Reportedly at 10 am on morning of admission, patient's reported her right side was shaking for about 1-3 minutes, her eyes were darting back and forth and after she did not know the name of her daughter and was very confused. The night before she had a hallucination and reportedly believed someone was in her bedroom. From 10 am - 3pm on day of admission she was confused but mental status did improve. Reportedly with seizure like event in February. Patient was told she does not need any anti seizure medications. 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 She has had hallucinations in the past but only at the hospital. Patient is incontinent at baseline, family unaware if she voided during this event. Patient has no complaints. Patient is compliant with the medication. On admission, CT head completed and without acute changes. Of note, Blood gas completed and patient with intial PH 7.19, pC02 107, now improved since. Not wearing facemask during my evaluation this morning, comfortably breathing on room air. CT chest completed, airway disease noted. EEG completed , report reviewed, no epileptiform activity. Resting comfortably this AM, no respiratory distress and no new neurologic complaints. Continue respiratory mgmt and follow up. Monitor blood pressure, maintain normotensive range, continue toprolol, furosemide. Continue Statin 40mg, lipid profile reviewed. On Eliquis for afib. fall precautions recommended.
[2018-10-28] MEDS ORDERED: FUROSEMIDE 40 MG TABLET (FP) PO SCH (10:00)
[2018-10-28] MEDS ORDERED: predniSONE 20 MG TABLET (UD) PO SCH (10:00)
[2018-10-28 10:16] LABS: ANISOCYTOSIS 2+; MACROCYTOSIS 0; PLATELET ESTIMATE NORMAL
--- NOTE | 2018-10-28 10:51 | PN ---
Progress Note, Physician History of Present Illness: pulmonary alert,feeling better,comfortable,-resp distress - Current Medication List Current Medications: Active Medications Al Hydroxide/Mg Hydroxide (Mylanta Oral Suspension -) 30 ml PO Q6H PRN PRN Reason: DYSPEPSIA Last Admin: 10/24/18 17:17 Dose: 30 ml Apixaban (Eliquis -) 5 mg PO BID [facility] Last Admin: 10/28/18 09:21 Dose: 5 mg Atorvastatin Calcium (Lipitor -) 40 mg PO HS [facility] Last Admin: 10/27/18 21:24 Dose: 40 mg Furosemide (Lasix -) 40 mg PO DAILY [facility] Last Admin: 10/28/18 09:21 Dose: 40 mg Insulin Aspart (Novolog Vial Sliding Scale -) 1 vial SQ [facility]; Protocol Last Admin: 10/28/18 06:56 Dose: Not Given Insulin Detemir (Levemir Vial) 20 units SQ BID@0700,2200 [facility] Last Admin: 10/28/18 06:56 Dose: Not Given Levothyroxine Sodium (Synthroid Injection -) 25 mcg IVPUSH DAILY [facility] Last Admin: 10/28/18 09:19 Dose: 25 mcg Metoprolol Succinate (Toprol Xl -) 25 mg PO BID [facility] Last Admin: 10/28/18 09:21 Dose: 25 mg Pantoprazole Sodium (Protonix -) 40 mg PO DAILY [facility] Last Admin: 10/28/18 09:21 Dose: 40 mg Prednisone (Deltasone -) 40 mg PO DAILY [facility] Last Admin: 10/28/18 09:21 Dose: 40 mg - Objective Vital Signs: Vital Signs Temperature 97.4 F L 10/28/18 08:22 Pulse Rate 66 10/28/18 08:22 Respiratory Rate 18 10/28/18 08:25 Blood Pressure 139/62 10/28/18 08:22 O2 Sat by Pulse Oximetry (%) 95 10/27/18 22:58 Constitutional: Yes: Well Nourished, Calm Eyes: Yes: WNL HENT: Yes: WNL Neck: Yes: WNL Cardiovascular: Yes: Pulse Irregular, S1, S2 Respiratory: Yes: Rales (few bibasialr crackles) Gastrointestinal: Yes: Normal Bowel Sounds, Soft Extremities: Yes: WNL Edema: No Labs: CBC, BMP 10/28/18 07:54 10/28/18 07:54 INR, PTT INR 1.18 (0.83-1.09) H 10/28/18 07:54 Assessment/Plan Problem List - Problems (1) Altered mental status Code(s): R41.82 - ALTERED MENTAL STATUS, UNSPECIFIED Qualifiers: Altered mental status type: unspecified Qualified Code(s): R41.82 - Altered mental status, unspecified (2) ASHD (arteriosclerotic heart disease) Code(s): I25.10 - ATHSCL HEART DISEASE OF [place] CORONARY ARTERY W/O ANG PCTRS (3) Acute hypercapnic respiratory failure Code(s): J96.02 - ACUTE RESPIRATORY FAILURE WITH HYPERCAPNIA (4) Acute on chronic respiratory failure with hypoxemia Code(s): J96.21 - ACUTE AND CHRONIC RESPIRATORY FAILURE WITH HYPOXIA (5) Atrial fibrillation Code(s): I48.91 - UNSPECIFIED ATRIAL FIBRILLATION Qualifiers: Atrial fibrillation type: paroxysmal Qualified Code(s): I48.0 - Paroxysmal atrial fibrillation (6) CAD (coronary artery disease) Code(s): I25.10 - ATHSCL HEART DISEASE OF [place] CORONARY ARTERY W/O ANG PCTRS Qualifiers: Coronary Disease-Associated Artery/Lesion type: [place] artery [place] vs. transplanted heart: [place] heart Associated angina: without angina Qualified Code(s): I25.10 - Atherosclerotic heart disease of [place] coronary artery without angina pectoris (7) CHF (congestive heart failure) Code(s): I50.9 - HEART FAILURE, UNSPECIFIED Qualifiers: Heart failure type: combined systolic and diastolic Heart failure chronicity: chronic Qualified Code(s): I50.42 - Chronic combined systolic ( congestive) and diastolic (congestive) heart failure (8) CHF exacerbation Code(s): I50.9 - HEART FAILURE, UNSPECIFIED Qualifiers: Heart failure type: unspecified Qualified Code(s): I50.9 - Heart failure, unspecified (9) COPD (chronic obstructive pulmonary disease) Code(s): J44.9 - CHRONIC OBSTRUCTIVE PULMONARY DISEASE, UNSPECIFIED Qualifiers: COPD type: unspecified COPD Qualified Code(s): J44.9 - Chronic obstructive pulmonary disease, unspecified (10) COPD exacerbation Code(s): J44.1 - CHRONIC OBSTRUCTIVE PULMONARY DISEASE W (ACUTE) EXACERBATION (11) Diabetes Code(s): E11.9 - TYPE 2 DIABETES MELLITUS WITHOUT COMPLICATIONS Qualifiers: Diabetes mellitus type: type 2 Diabetes mellitus group home insulin use: with group home use Diabetes mellitus complication status: with hyperglycemia Qualified Code(s): E11.65 - Type 2 diabetes mellitus with hyperglycemia; 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 of 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 (12) HTN (hypertension) Code(s): I10 - ESSENTIAL (PRIMARY) HYPERTENSION Qualifiers: Hypertension type: essential hypertension Qualified Code(s): I10 - Essential (primary) hypertension (13) History of coronary artery stent placement Code(s): Z95.5 - PRESENCE OF CORONARY ANGIOPLASTY IMPLANT AND GRAFT (14) Hyperlipidemia Code(s): E78.5 - HYPERLIPIDEMIA, UNSPECIFIED Qualifiers: Hyperlipidemia type: pure hypercholesterolemia Qualified Code(s): E78.00 - Pure hypercholesterolemia, unspecified; E78.0 - Pure hypercholesterolemia (15) Respiratory distress Code(s): R06.00 - DYSPNEA, UNSPECIFIED (16) Seizure Code(s): R56.9 - UNSPECIFIED CONVULSIONS 17 ACUTE ON CHRONIC HYPOXEMIC/HYPERCAPNEIC RESPIRATORY FAILURE PT CLINICALLY IMPROVING Assessment/Plan O2 NIPPV as needed Prednisone Lasix Aspiration precautions BD TX Daily wt home trilogy device f/u chest ct 4-6 wks to confirm resolution of infiltrates DR CAAL
--- NOTE | 2018-10-28 10:52 | PN ---
Progress Note (short form) - Note Progress Note: s: no chest pain, palps, dizziness. TELE: sinus, PVCs, episodes AF with RVR Current Medications Al Hydroxide/Mg Hydroxide (Mylanta Oral Suspension -) 30 ml PO Q6H PRN PRN Reason: DYSPEPSIA Last Admin: 10/24/18 17:17 Dose: 30 ml Apixaban (Eliquis -) 5 mg PO BID [facility] Last Admin: 10/28/18 09:21 Dose: 5 mg Atorvastatin Calcium (Lipitor -) 40 mg PO HS [facility] Last Admin: 10/27/18 21:24 Dose: 40 mg Furosemide (Lasix -) 40 mg PO DAILY [facility] Last Admin: 10/28/18 09:21 Dose: 40 mg Insulin Aspart (Novolog Vial Sliding Scale -) 1 vial SQ ACHS [facility]; Protocol Last Admin: 10/28/18 06:56 Dose: Not Given Insulin Detemir (Levemir Vial) 20 units SQ BID@0700,2200 [facility] Last Admin: 10/28/18 06:56 Dose: Not Given Levothyroxine Sodium (Synthroid Injection -) 25 mcg IVPUSH DAILY [facility] Last Admin: 10/28/18 09:19 Dose: 25 mcg Metoprolol Succinate (Toprol Xl -) 25 mg PO BID [facility] Last Admin: 10/28/18 09:21 Dose: 25 mg Pantoprazole Sodium (Protonix -) 40 mg PO DAILY [facility] Last Admin: 10/28/18 09:21 Dose: 40 mg Prednisone (Deltasone -) 40 mg PO DAILY [facility] Last Admin: 10/28/18 09:21 Dose: 40 mg Vital Signs Period Temp Pulse Resp BP Sys/Gardner Pulse Ox Last 24 Hr 97.4 F-99.2 F 52-81 18-20 114-145/44-69 95-96 Constitutional: Yes: Calm Cardiovascular: Yes: Pulse Irregular Respiratory: Yes: scattered expiratory wheezes Gastrointestinal: Yes: Soft Edema: No Neurological: Yes: Alert not agitated no jaundice, diaphoresis Assessment/Plan cath 07/2018: lm 50, mlad 80 (isr), d1 90, lcx 90, mrca 70 echo 06/2018: mild lvh, lvef 40-45, g2dd, apical hk, nl rv, mild mr, mild phtn A/P: 83 yr old lady with known CAD/pci, chf, HTN, HPL, DM, pad, obesity, pafib (dx 05/2017 when admitted for copd) here with ams. AMS possible seizure: -plans per neuro Acute exacerbation copd, PNA/CO2 retention: -steroids, NIPPV per pulm -pt on home O2 Acute mixed diastolic/systolic CHF (EF mid-range 40-45%), mild pulm HTN: -here with likely a.e. copd > mild chf decomp - diuresed with IV lasix while on IV steroids, transitioned to prednisone - appears euvolemic, continue lasix 40 mg PO daily -home O2 therapy as prior plan CAD: -borderline trop elevation with flat trend and nl ck, similar to prior baseline values, not c/w acs -pt was in [place] and admitted for chf recently and had cath showing 3vd (cath 07/2018: lm 50, mlad 80 (isr), d1 90, lcx 90, mrca 70) and deemed high risk for cabg, no pci done -given her recurrent chf, will re-consider revascularization options with [facility] once HF and copd are stabilized -remains without angina -cont bb, ac, statin PAF: -mostly in sinus here--cont bb -cont eliquis 5 bid for AC HTN: -bp controlled -cont current meds NSVT: -Keep K+ > 4 and Mg2+ > 2; cont BB
--- NOTE | 2018-10-28 12:03 | PN ---
Teaching Attending Note Name of Resident: Marisol Barrera ATTENDING PHYSICIAN STATEMENT I saw and evaluated the patient. I reviewed the resident's note and discussed the case with the resident. I agree with the resident's findings and plan as documented. SUBJECTIVE: Patient denies SOB. She appears comfortable lying in bed. OBJECTIVE: Vital Signs Period Temp Pulse Resp BP Sys/Gardner Pulse Ox Last 24 Hr 97.4 F-99.2 F 52-81 18-20 114-145/44-69 95-96 HEART: S1S2, RRR LUNGS: Clear ABDOMEN: Obese, soft, non-tender, non-distended, normal BS EXTREMITIES: Trace edema Laboratory Results - last 24 hr 10/27/18 10/27/18 10/28/18 16:51 21:22 06:54 WBC RBC Hgb Hct MCV MCH MCHC RDW Plt Count MPV Absolute Neuts (auto) Neutrophils % Lymphocytes % Monocytes % Eosinophils % Basophils % Nucleated RBC % Hypochromia Platelet Estimate Polychromasia Poikilocytosis Basophilic Stippling Anisocytosis Microcytosis Macrocytosis Stomatocytes Acanthocytes (Spur) Schistocytes PT with INR INR Sodium Potassium Chloride Carbon Dioxide Anion Gap BUN Creatinine Est GFR (CKD-EPI)AfAm Est GFR (CKD-EPI)NonAf POC Glucometer 163 223 71 Random Glucose Calcium Phosphorus Magnesium Total Bilirubin AST ALT Alkaline Phosphatase Total Protein Albumin 10/28/18 10/28/18 10/28/18 07:54 07:54 07:54 WBC 7.1 RBC 5.33 H Hgb 10.7 Hct 35.9 MCV 67.4 L MCH 20.1 L MCHC 29.9 L RDW 16.3 H Plt Count 251 MPV 8.4 Absolute Neuts (auto) 4.8 Neutrophils % 67.9 D Lymphocytes % 21.0 D Monocytes % 8.8 D Eosinophils % 1.5 D Basophils % 0.8 D Nucleated RBC % 0 Hypochromia 1+ Platelet Estimate Normal Polychromasia 0 Poikilocytosis 1+ Basophilic Stippling 1+ Anisocytosis 2+ Microcytosis 2+ Macrocytosis 0 Stomatocytes 1+ Acanthocytes (Spur) 1+ Schistocytes 1+ PT with INR 13.90 H INR 1.18 H Sodium 140 Potassium 3.4 L Chloride 89 L Carbon Dioxide > 45 H Anion Gap 6 L BUN 28.2 H Creatinine 0.9 Est GFR (CKD-EPI)AfAm 69.01 Est GFR (CKD-EPI)NonAf 59.55 POC Glucometer Random Glucose 102 Calcium 9.0 Phosphorus 3.4 Magnesium 2.4 Total Bilirubin 1.3 H AST 20 ALT 21 Alkaline Phosphatase 53 Total Protein 6.8 Albumin 2.9 L 10/28/18 11:57 WBC RBC Hgb Hct MCV MCH MCHC RDW Plt Count MPV Absolute Neuts (auto) Neutrophils % Lymphocytes % Monocytes % Eosinophils % Basophils % Nucleated RBC % Hypochromia Platelet Estimate Polychromasia Poikilocytosis Basophilic Stippling Anisocytosis Microcytosis Macrocytosis Stomatocytes Acanthocytes (Spur) Schistocytes PT with INR INR Sodium Potassium Chloride Carbon Dioxide Anion Gap BUN Creatinine Est GFR (CKD-EPI)AfAm Est GFR (CKD-EPI)NonAf POC Glucometer 177 Random Glucose Calcium Phosphorus Magnesium Total Bilirubin AST ALT Alkaline Phosphatase Total Protein Albumin Current Medications Generic Name Dose Route Start Last Admin Trade Name Freq PRN Reason Stop Dose Admin Al Hydroxide/Mg Hydroxide 30 ml 10/24/18 17:09 10/24/18 17:17 Mylanta Oral Suspension - PO 30 ml Q6H PRN Administration DYSPEPSIA Apixaban 5 mg 10/21/18 22:00 10/28/18 09:21 Eliquis - PO 5 mg BID RYANN Administration Atorvastatin Calcium 40 mg 10/21/18 22:00 10/27/18 21:24 Lipitor - PO 40 mg HS RYANN Administration Furosemide 40 mg 10/28/18 10:00 10/28/18 09:21 Lasix - PO 40 mg DAILY [facility]ANN Administration Insulin Aspart 1 vial 10/24/18 16:44 10/28/18 06:56 Novolog Vial Sliding Scale - SQ Not Given ACHS [facility] Protocol Insulin Detemir 20 units 10/25/18 10:54 10/28/18 06:56 Levemir Vial SQ Not Given BID@0700,2200 [facility] Levothyroxine Sodium 25 mcg 10/22/18 10:00 10/28/18 09:19 Synthroid Injection - IVPUSH 25 mcg DAILY [facility] Administration Metoprolol Succinate 25 mg 10/21/18 22:00 10/28/18 09:21 Toprol Xl - PO 25 mg BID [facility] Administration Pantoprazole Sodium 40 mg 10/24/18 17:15 10/28/18 09:21 Protonix - PO 40 mg DAILY [facility] Administration Prednisone 40 mg 10/28/18 10:00 10/28/18 09:21 Deltasone - PO 40 mg DAILY [facility] Administration ASSESSMENT AND PLAN: This is an 83 year old woman with a history of COPD, chronic hypoxic and hypecapnic respiratory failure, CAD/MD/stent, PAF, chronic systolic and diastolic heart failure, type 2 DM, hypothyroidism, hyperlipidemia, HTN, PAD, possible seizures who presented to the ED with altered mental status. 1. Acute metabolic encephalopathy - Resolved 2. Acute on chronic hypoxic and hypercapnic respiratory failure - Continue oxygen to maintain saturation >90% 3. Acute exacerbation of COPD - Improved - Continue prednisone - Trilogy device to be delivered to her home today - Needs repeat chest CT in 4-6 weeks 4. Acute on chronic systolic and diastolic heart failure - Improved - Continue Lasix PO 5. CAD, history of MD and stent - Continue Toprol XL, Lipitor 6. Paroxysmal atrial fib - Currently in sinus rhythm - Continue Toprol XL, Eliquis 7. Type 2 DM - Continue Levemir, Novolog sliding scale 8. Hypothyroidism - Continue Synthroid 9. Hyperlipidemia - Continue Lipitor 10. PAD 11. Morbid obesity with BMI 40.0 12. Disposition - Ok for discharge home with VNS, PT
--- NOTE | 2018-10-28 12:33 | DS ---
Physical Exam: SUBJECTIVE: Patient seen and examined. Lying in bed with NC oxygen. No chest pain, no worsening shortness of breath. PO steroids and lasix day 2. OBJECTIVE: Vital Signs Period Temp Pulse Resp BP Sys/Gardner Pulse Ox Last 24 Hr 97.4 F-99.2 F 52-81 18-20 114-145/44-69 95-96 Vital Signs Temp 97.4 F L 10/28/18 08:22 Pulse 66 10/28/18 08:22 Resp 18 10/28/18 08:25 BP 139/62 10/28/18 08:22 Pulse Ox 95 10/27/18 22:58 Intake & Output 10/27/18 10/28/18 10/28/18 23:59 11:59 23:59 Intake Total 310 Balance 310 Weight 99.155 kg Intake: IV 10 SALINE LOCK 10 Oral 300 Other: Voiding Method Diaper Diaper # Unmeasured Voids Void 1 1 Weight Measurement Method Standing Scale PHYSICAL EXAM GENERAL: The patient is awake, alert, and fully oriented, in no acute respiratory distress HEAD: Normal with no signs of trauma. EYES: PERRL, extraocular movements intact, ENT: moist mucous membranes. NECK: supple. LUNGS: Breath sounds equal, no wheezes, no crackles, HEART: Regular rate and rhythm, S1, S2 ABDOMEN: Soft, nontender, nondistended, normoactive bowel sounds EXTREMITIES: 2+ pulses, warm, well-perfused, mild b/l pedal edema. NEUROLOGICAL: Cranial nerves II through XII grossly intact. Normal speech, gait not observed. LABS Laboratory Results - last 24 hr 10/27/18 10/27/18 10/28/18 16:51 21:22 06:54 WBC RBC Hgb Hct MCV MCH MCHC RDW Plt Count MPV Absolute Neuts (auto) Neutrophils % Lymphocytes % Monocytes % Eosinophils % Basophils % Nucleated RBC % Hypochromia Platelet Estimate Polychromasia Poikilocytosis Basophilic Stippling Anisocytosis Microcytosis Macrocytosis Stomatocytes Acanthocytes (Spur) Schistocytes PT with INR INR Sodium Potassium Chloride Carbon Dioxide Anion Gap BUN Creatinine Est GFR (CKD-EPI)AfAm Est GFR (CKD-EPI)NonAf POC Glucometer 163 223 71 Random Glucose Calcium Phosphorus Magnesium Total Bilirubin AST ALT Alkaline Phosphatase Total Protein Albumin 10/28/18 10/28/18 10/28/18 07:54 07:54 07:54 WBC 7.1 RBC 5.33 H Hgb 10.7 Hct 35.9 MCV 67.4 L MCH 20.1 L MCHC 29.9 L RDW 16.3 H Plt Count 251 MPV 8.4 Absolute Neuts (auto) 4.8 Neutrophils % 67.9 D Lymphocytes % 21.0 D Monocytes % 8.8 D Eosinophils % 1.5 D Basophils % 0.8 D Nucleated RBC % 0 Hypochromia 1+ Platelet Estimate Normal Polychromasia 0 Poikilocytosis 1+ Basophilic Stippling 1+ Anisocytosis 2+ Microcytosis 2+ Macrocytosis 0 Stomatocytes 1+ Acanthocytes (Spur) 1+ Schistocytes 1+ PT with INR 13.90 H INR 1.18 H Sodium 140 Potassium 3.4 L Chloride 89 L Carbon Dioxide > 45 H Anion Gap 6 L BUN 28.2 H Creatinine 0.9 Est GFR (CKD-EPI)AfAm 69.01 Est GFR (CKD-EPI)NonAf 59.55 POC Glucometer Random Glucose 102 Calcium 9.0 Phosphorus 3.4 Magnesium 2.4 Total Bilirubin 1.3 H AST 20 ALT 21 Alkaline Phosphatase 53 Total Protein 6.8 Albumin 2.9 L 10/28/18 11:57 WBC RBC Hgb Hct MCV MCH MCHC RDW Plt Count MPV Absolute Neuts (auto) Neutrophils % Lymphocytes % Monocytes % Eosinophils % Basophils % Nucleated RBC % Hypochromia Platelet Estimate Polychromasia Poikilocytosis Basophilic Stippling Anisocytosis Microcytosis Macrocytosis Stomatocytes Acanthocytes (Spur) Schistocytes PT with INR INR Sodium Potassium Chloride Carbon Dioxide Anion Gap BUN Creatinine Est GFR (CKD-EPI)AfAm Est GFR (CKD-EPI)NonAf POC Glucometer 177 Random Glucose Calcium Phosphorus Magnesium Total Bilirubin AST ALT Alkaline Phosphatase Total Protein Albumin Laboratory Tests 10/21/18 10/22/18 10/25/18 23:45 01:50 07:30 Puncture Site Right radial Left radial Left radial ABG pH 7.19 L* 7.28 L 7.39 ABG pCO2 at Pt Temp 107 H* 86.7 H* 76.3 H* ABG pO2 at Pt Temp 91.1 99.3 111 H ABG HCO3 39.5 H 39.6 H 45.4 H ABG O2 Sat (Measured) 95.5 97.3 98.7 H ABG O2 Content No Result Required. 13.2 L 14.5 L ABG Base Excess 8.6 H 10.9 H 17.5 H HOSPITAL COURSE: Date of Admission:10/21/18 Date of Discharge: 10/28/18 Pt is an 83 yovf with PMhx of COPD on 2L home oxygen, chronic hypoxic and hypecapnic respiratory failure, CAD/MO/stent, PAF, chronic systolic and diastolic heart failure, type 2 DM, hypothyroidism, hyperlipidemia, HTN, PAD, possible seizures brought in by family with AMS/increased sleepiness. Found to have been retaining C)2, was placed on Bipap and managed for COPD and CHF exacerbation. Requires home trilogy machine with VNS set up. Altered mental status was initially presumed to be seizure related but patient was seen by neurology and not continued on AEDs as acute on chronic respiratory failure more likely as cause of AMS. Patient is being discharged home to follow up with corporate executive, district agent, neurologist and primary care doctor. Minutes to complete discharge: 40 Discharge Summary Reason For Visit: AMS Current Active Problems Altered mental status (Acute) CHF exacerbation (Acute) Hypoxia (Acute) Respiratory distress (Acute) Shortness of breath (Acute) ASHD (arteriosclerotic heart disease) (Chronic) Chronic hypercapnic respiratory failure (Chronic) Diabetes mellitus (Chronic) HTN (hypertension) (Chronic) History of coronary artery stent placement (Chronic) Hyperlipidemia (Chronic) 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 infarction (Chronic) Condition: Improved - Instructions Diet, Activity, Other Instructions: You came in for shortness of breath and change in mental status You were found to have worsening of your COPD and heart failure You will need trilogy a breathing assisting machine that will be delivered to your home, use it especially at night when you sleep to prevent worsening shortness of breath Continue your home oxygen We are putting you on steroid taper by mouth You will continue 40mg of prednisone tomorrow Then 30 mg of prednisone for the next 3 days Then 20mg of prednisone for another 3 days Then 10mg of prednisone for another another 3 days then stop. Continue lasix at 40mg daily Continue all other medications as prescribed Please follow up with your heart doctor, your lung doctor, neurologist and your primary care doctor in one week Restrict your salt intake and weigh yourself daily If you notice more than 3lb gain of weight in a day please contact your heart doctor for adjustment of your water pill (lasix) If you think your symptoms are not getting better, with worsening chest pain, shortness of breath, dizziness, please go to the nearest emergency room Referrals: Kiel Obregon MD [Staff Physician] - 1 Week Aurora Quinonez MD [Staff Physician] - 1 Week Hieu Bowie MD [Staff Physician] - 1 Week Aleena Fournier MD [Primary Care Provider] - Disposition: HOME - Home Medications Comprehensive Discharge Medication List: Ambulatory Orders Insulin Lispro [Humalog] 0 unit SQ TIDCM PRN 03/02/14 Apixaban [Eliquis -] 5 mg PO BID #60 tablet 06/09/17 Insulin (Levemir) [Levemir Vial] 15 unit SQ HS 07/16/17 Furosemide [Lasix] 40 mg PO DAILY #30 tablet 07/20/17 Levothyroxine [Synthroid -] 25 mcg PO DAILY 10/27/17 Atorvastatin Ca [Lipitor] 40 mg PO HS #30 tablet 11/04/17 Pantoprazole Sodium [Protonix -] 40 mg PO DAILY #30 tablet.ec 11/04/17 Metoprolol Succinate [Toprol XL -] 25 mg PO BID 10/21/18 Albuterol 0.083% Nebulizer Nel [Ventolin 0.083% Nebulizer Soln -] 1 amp NEB Q4H PRN 90 Days #6 box 10/28/18 Nebulizer and Compressor [Portable Nebulizer System] 1 each MC BID #1 each 10/28 This patient is new to me today: No Emergency Visit: Yes ED Registration Date: 10/21/18 Care time: The patient presented to the Emergency Department on the above date and was hospitalized for further evaluation of their emergent condition. Critical Care patient: No - Discharge Referral Referred to [facility] Med [facility] No
[2018-10-28 15:35] VITALS: BP 130/65; PULSE 86; TEMP 97.8
== END 2018-10-28 16:17 | disposition home health service (06) | DRG 291 ==
LOC: JER 12:15 → JERBED 17:51 → J7W 20:34 → J4W 23:29
PROVIDERS: ADMIT Internal Medicine; ATTEND Internal Medicine
PROC: 5A09457 Assistance with Respiratory Ventilation, 24-96 Consecutive Hours, Continuous Positive Airway Pressure (ICD-10-PCS; principal; 2018-10-22)
DX: I11.0 Hypertensive heart disease with heart failure (principal); G92 Toxic encephalopathy; J96.22 Acute and chronic respiratory failure with hypercapnia; J96.21 Acute and chronic respiratory failure with hypoxia; Z68.41 Body mass index [BMI] 40.0-44.9, adult; I69.351 Hemiplegia and hemiparesis following cerebral infarction affecting right dominant side; J44.1 Chronic obstructive pulmonary disease with (acute) exacerbation; J98.11 Atelectasis; I50.43 Acute on chronic combined systolic (congestive) and diastolic (congestive) heart failure; E66.01 Morbid (severe) obesity due to excess calories; I48.0 Paroxysmal atrial fibrillation; E03.9 Hypothyroidism, unspecified; I25.10 Atherosclerotic heart disease of native coronary artery without angina pectoris; E11.9 Type 2 diabetes mellitus without complications; E78.5 Hyperlipidemia, unspecified; I50.9 Heart failure, unspecified; Z79.4 Long term (current) use of insulin; I25.2 Old myocardial infarction; Z95.5 Presence of coronary angioplasty implant and graft; D64.9 Anemia, unspecified; Z87.891 Personal history of nicotine dependence; Z88.0 Allergy status to penicillin; R32 Unspecified urinary incontinence; K21.9 Gastro-esophageal reflux disease without esophagitis; R26.9 Unspecified abnormalities of gait and mobility; I87.2 Venous insufficiency (chronic) (peripheral); Z99.81 Dependence on supplemental oxygen
CPT/HCPCS: 36415; 36600; 70450-TC; 71045-TC-FY; 71250-TC; 80048; 80053; 81003; 82465; 82550; 82803; 82962; 83036; 83718; 83721; 83735; 83880; 84100; 84439; 84443; 84478; 84480; 84484; 85025; 85027; 85610; 86850; 86900; 86901; 87086; 93005; 93010; 93306-TC; 93880-TC; 94640; 94660; 95816; 97116-GP; 97161-GP; 99284-25; J7030

== ENCOUNTER 2018-11-09 08:33 | Inpatient (IN) | payer OTHER | END 2018-11-21 01:11 | disposition short-term general hospital (02) | LOC: JER 08:33 → JERBED 13:51 → JICU 20:41 ==

== ENCOUNTER 2018-12-07 12:14 | Inpatient (IN) | payer OTHER ==
[2018-12-07] MEDS ORDERED: ACETAMINOPHEN 1000 MG/100 ML VIAL (NON FORMULARY) IVPB ONE (13:14)
--- NOTE | 2018-12-07 13:18 | PDOC ---
History of Present Illness - General Chief Complaint: SIRS, Suspected/Possible Stated Complaint: SOB Time Seen by Provider: 12/07/18 12:21 History Source: Patient Exam Limitations: Language Barrier (interpretor used), Other (poor historian) - History of Present Illness Initial Comments: Pt is an 83 yo F, with PMH of COPD (trilogy machine), CHF, CAD/IN/cath, Afib ( on eliquis), Afib, HTN, HLD, Type 2 DM, who is presenting from home via EMS with complaints of worsening generalized fatigue and shortness of breath on exertion over the past few days. Pt states she can normally walk around the house without too much difficulty, but is now SOB from room to room. Pt states she has been compliant with her medications and took them this AM, with no recent changes. She states her leg swellign and breathing have generally been better since her last admission. Pt denies any recent fevers/chills, headache, vision changes, syncope, chest pain, palpitations, nausea/vomiting, abdominal pain, urinary symptoms, diarrhea/constipation, or leg swelling. Pt was discharged last month, after requiring cardiac pacing (failed atropine with bradycardia), and was intubated, stayed in ICU. Allergies: NKDA PCP: Shantanu Cards: Benny/Duyen Pulm: Mindi Renal: Surendra Social: Pt denies any cigarette, alcohol, or drug use. Pt denies any recent travel or sick contacts. Surgical: R knee surgery, cardiac cath (no cabg) Family: no relevant history. 12/07/18 13:13 Past History - Travel Traveled outside of the country in the last 30 days: No Close contact w/someone who was outside of country & ill: No - Past Medical History Allergies/Adverse Reactions: Allergies Allergy/AdvReac Type Severity Reaction Status Date / Time Penicillins Allergy Unknown Verified 12/07/18 13:04 Apple juice Allergy Uncoded 12/07/18 13:04 Home Medications: Ambulatory Orders Insulin Lispro [Humalog] 0 unit SQ TIDCM PRN 03/02/14 Apixaban [Eliquis -] 5 mg PO BID #60 tablet 06/09/17 Insulin (Levemir) [Levemir Vial] 15 unit SQ HS 07/16/17 Furosemide [Lasix] 40 mg PO DAILY #30 tablet 07/20/17 Levothyroxine [Synthroid -] 25 mcg PO DAILY 10/27/17 Atorvastatin Ca [Lipitor] 40 mg PO HS #30 tablet 11/04/17 Pantoprazole Sodium [Protonix -] 40 mg PO DAILY #30 tablet.ec 11/04/17 Metoprolol Succinate [Toprol XL -] 25 mg PO DAILY 10/21/18 Albuterol 0.083% Nebulizer Nel [Ventolin 0.083% Nebulizer Soln -] 1 amp NEB Q4H PRN 90 Days #6 box 10/28/18 Nebulizer and Compressor [Portable Nebulizer System] 1 each MC BID #1 each 10/28 Prednisone 10 mg PO DAILY 11/20/18 Anemia: No Asthma: No Cancer: No Cardiac Disorders: Yes (IN with stents, afib on eliquis) CVA: No COPD: Yes (COPD) CHF: Yes DVT: No Dementia: No Diabetes: Yes GI Disorders: No Disorders: No HTN: Yes Hypercholesterolemia: Yes Liver Disease: No Seizures: No Thyroid Disease: Yes - Surgical History Abdominal Surgery: No Appendectomy: No Cardiac Surgery: Yes (cardiac cath with stents) Cholecystectomy: Yes (2010) Lung Surgery: No Neurologic Surgery: No Orthopedic Surgery: Yes (KNEE) - Family Disease History Family Disease History: Diabetes: Mother - Immunization History Immunization Up to Date: Yes - Suicide/Smoking/Psychosocial Hx Smoking History: Unknown if ever smoked Have you smoked in the past 12 months: No Hx Alcohol Use: No Drug/Substance Use Hx: No Substance Use Type: None Hx Substance Use Treatment: No Respiratory Specific PMHX - Complaint Specific PMHX Angina: No Bronchitis: No Pneumonia: Yes Pulmonary Embolus: No TB (Tuberculosis): No Review of Systems - Review of Systems Able to Perform ROS?: Yes Is the patient limited Mongolian proficient: Yes Constitutional: Yes: Malaise, Weight Stable. No: Chills, Fever, Loss of Appetite HEENTM: No: Recent change in vision, Nose Congestion, Throat Pain, Difficulty Swallowing Respiratory: Yes: Shortness of Breath, SOB with Exertion. No: Cough, Orthopnea , SOB at Rest, Wheezing, Productive cough, Hemoptysis Cardiac (ROS): No: Chest Pain, Edema, Irregular Heart Rate, Lightheadedness, Palpitations, Syncope, Chest Tightness ABD/GI: No: Constipated, Diarrhea, Nausea, Poor Appetite, Poor Fluid Intake, Vomiting : No: Burning, Dysuria, Frequency, Pain, Urgency Musculoskeletal: No: Back Pain, Joint Pain, Muscle Pain, Muscle Weakness Integumentary: No: Bruising, Erythema, Rash Neurological: No: Headache, Weakness, Unsteady Gait, Dizziness Psychiatric: No: Sleep Pattern Change, Change in Appetite Endocrine: No: Increased Urine, Change in Weight Hematologic/Lymphatic: No: Anemia, Blood Clots, Easy Bleeding, Easy Bruising All Other Systems: Reviewed and Negative *Physical Exam - Physical Exam Comments: Tachycardic (low 100s), rectal temp 101.0. Pt with mildly increased WOB, saturating 100% on 2L NC. Morbidly obese body habitus. Pt alert and oriented x3. book solicitor generally intact, muscular strength and sensation intact. No midline spinal tenderness, step-offs, or crepitus. Head normocephalic, atraumatic. Eyes PERRLA, EOMI. Oropharynx without erythema or exudates, no LAD b/l. No nasal congestion, hearing intact. Clear heart sounds, S1/S2, no JVD, b/l pedal edema, or heart murmur. Diminished lung sounds throughout, coarse at b/l lower bases, worst at L lower base. No abdominal or CVA tenderness to palpation, no rebound, no guarding. Abdomen soft, non-distended, and with normoactive bowel sounds. Skin without jaundice or rash. 12/07/18 13:19 ED Treatment Course - LABORATORY CBC & Chemistry Diagram: 12/07/18 13:00 12/07/18 13:00 - RADIOLOGY Radiology Studies Ordered: Category Date Time Status CHEST X-RAY PORTABLE* [RAD] Stat Radiology 12/07/18 12:31 Ordered Medical Decision Making - Medical Decision Making Pt was seen at bedside, also will be seen by attending Dr. Carey. Pt presenting with worsening generalized malaise and SOB with exertion. Recently intubated and required cardiac pacing. Pt with increased WOB, and febrile on exam, with coarse breath sounds. Likely pneumonia, will do septic work-up, evaluate for ACS, pleural effusion. Less likely PE considering fever and systemic systems. Provided 1 g IV ofirmev for improvement of fever. Will continue to reassess pt and monitor for symptomatic improvement. ECG: Afib with RVR (HR 102, QRS 120, QTc 487). No TWIs or significant ST segment changes. No significant changes from prior ECG (11/13/2018). VBG with no significant hypercapnia or hypoxia Chest x-ray shows increased congestion and increased consolidation/reaction at R lower base Covered empirically with 1.5 g IV vanc, 1 g IV cefepime (pt tolerated without reaction in the past, seen by ID), and 500 mL IV NS. UA negative for infection, pneumonia likely source. 12/07/18 13:21 12/07/18 13:50 CBC with no elevated WBC, anemia at baseline Pending chemistry 12/07/18 14:06 CMP: CO2 34, renal function WNL Trop .07, BNP 8687, not elevated from prior admissions lactic WNL Providing albuterol nebulizer treatment as HR has improved to 80s. [facility] hospitalist team for admission 12/07/18 14:55 Pt admitted to hospitalist team (Dr. Nguyen) Pt resting comfortably, receiving albuterol tx. 12/07/18 15:48 *DC/Admit/Observation/Transfer Diagnosis at time of Disposition: Chronic obstructive pulmonary disease with acute respiratory failure Pneumonia Qualifiers: Pneumonia type: due to unspecified organism Laterality: right Lung location: lower lobe of lung Qualified Code(s): J18.1 - Lobar pneumonia, unspecified organism CHF (congestive heart failure) Qualifiers: Heart failure type: unspecified Heart failure chronicity: unspecified Qualified Code(s): I50.9 - Heart failure, unspecified - Discharge Dispostion Condition at time of disposition: Stable Decision to Admit order: Yes - Referrals - Patient Instructions - Post Discharge Activity
[2018-12-07] MEDS ORDERED: ACETAMINOPHEN INJECTION 100 ML IVPB ONE (13:23)
[2018-12-07 13:29] LABS: BASO % 1.4 % (0-2.0); EOS % 2.6 % (0-4.5); HEMATOCRIT 29.5 % (32.4-45.2); HEMOGLOBIN 9.1 GM/dL (10.7-15.3); LYMPH % 18.6 % (8-40); MCH 20.8 pg (25.7-33.7); MCHC 30.9 g/dl (32.0-36.0); MEAN CELL VOLUME 67.2 fl (80-96); MEAN PLT VOLUME 8.9 fl (7.5-11.1); MONO % 7.6 % (3.8-10.2); NEUT % 69.8 % (42.8-82.8); PLATELET COUNT 214 K/MM3 (134-434); RBC 4.39 M/mm3 (3.60-5.2); RDW 19.3 % (11.6-15.6); WHITE BLOOD COUNT 6.1 K/mm3 (4.0-10.0)
[2018-12-07] MEDS ORDERED: VANCOMYCIN 1,500 MG in DEXTROSE 5%-WATER - 250 ML IVPB ONE (13:29)
[2018-12-07] MEDS ORDERED: CEFEPIME HCL/D5W 1 GM/50 ML BAG IVPB ONE (13:30)
[2018-12-07] MEDS ORDERED: SODIUM CHLORIDE 500 ML IV SCH (13:30)
[2018-12-07] MEDS ORDERED: CEFEPIME 1 GM/100 ML BAG IVPB ONE (13:34)
[2018-12-07 13:39] LABS: PH,URINE 8.5 (5.0-8.0); URINE APPEARANCE CLEAR; URINE BILIRUBIN NEGATIVE (NEGATIVE); URINE COLOR YELLOW; URINE GLUCOSE (UA) NEGATIVE (NEGATIVE); URINE KETONE NEGATIVE (NEGATIVE); URINE LEUK ESTERASE NEGATIVE (NEGATIVE); URINE NITRITE NEGATIVE (NEGATIVE); URINE PROTEIN NEGATIVE (NEGATIVE)
[2018-12-07 13:40] LABS: VENOUS PC02 55.1 mmHg (41-51); VENOUS PH 7.42 (7.31-7.41); VENOUS PO2 70.9 mmHg (30-40)
[2018-12-07] MEDS ORDERED: VANCOMYCIN 1,500 MG in DEXTROSE 5%-WATER - 500 ML IVPB ONE (13:45)
[2018-12-07 13:50] LABS: ACTIVATED PTT 39.7 SECONDS (25.2-36.5)
[2018-12-07] MEDS ORDERED: CEFEPIME 1 GM in DEXTROSE 5%-WATER - 50 ML IVPB ONE (14:00)
[2018-12-07 14:21] LABS: INR 1.68 (0.83-1.09); PROTHROMBIN TIME (PATIENT) 19.9 SEC (9.7-13.0)
[2018-12-07 14:26] LABS: BILIRUBIN,TOTAL 1.5 mg/dL (0.2-1); BLOOD UREA NITROGEN 16.7 mg/dL (7-18); CALCIUM 8.5 mg/dL (8.5-10.1); CREATININE 0.9 mg/dL (0.55-1.3); MAGNESIUM 2.1 mg/dL (1.8-2.4); N-TERMINAL BNP 8687.7 pg/ml (5-450); PHOSPHOROUS 3.2 mg/dL (2.5-4.9); POTASSIUM 5.2 mmol/L (3.5-5.1); TOT PROT 7.1 g/dl (6.4-8.2)
[2018-12-07] MEDS ORDERED: ALBUTEROL SO4 0.083% IH SOL 2.5 MG/3 ML VIAL.NEB. NEB ONE ×2 (14:43→14:54)
[2018-12-07 15:11] LABS: ANISOCYTOSIS 1+; OVALOCYTE 1+; PLATELET ESTIMATE ADEQUATE
--- NOTE | 2018-12-07 15:46 | HP ---
CHIEF COMPLAINT:SOB , dry cough PCP:Shantanu HISTORY OF PRESENT ILLNESS: Pt is an 83 yo F, with PMH of COPD (trilogy machine), CHF, CAD/ID/cath, Afib ( on eliquis), Afib, HTN, HLD, Type 2 DM, who is presenting from home via EMS with complaints of worsening generalized fatigue and shortness of breath on exertion over the past few days. pt worsening last night she can not even move from room to room without sob , she reports slight headache , but no dizziness or blurry vision ,she feel slight pressure on her chest without radiation , reports some fever and chills , she denies any abdmoinal pain, but report nausea without vomiting. she denies D/C denies any back pain. ER course was notable for: (1) Candelaria cx (2)abx cefepim and vanco (3)cxr with RLB atelectasis Recent Travel:denies PAST MEDICAL HISTORY: COPD (trilogy machine), CHF, CAD/ID/cath, Afib (on eliquis), Afib, HTN, HLD, Type 2 DM, PAST SURGICAL HISTORY: Hysteectomy , Right knee surgery , Cataract , Cardiac cath CABG Social History: Smoking:denies Alcohol:denies Drugs: denies Family History:non contributory Allergies Penicillins Allergy (Unknown, Verified 12/07/18 13:04) Apple juice Allergy (Uncoded 12/07/18 13:04) HOME MEDICATIONS: Home Medications Medication Instructions Recorded Insulin Lispro [Humalog] 0 unit SQ TIDCM PRN 03/02/14 Apixaban [Eliquis -] 5 mg PO BID #60 tablet 06/09/17 Insulin (Levemir) [Levemir Vial] 15 unit SQ HS 07/16/17 Furosemide [Lasix] 40 mg PO DAILY #30 tablet 07/20/17 Levothyroxine [Synthroid -] 25 mcg PO DAILY 10/27/17 Atorvastatin Ca [Lipitor] 40 mg PO HS #30 tablet 11/04/17 Pantoprazole Sodium [Protonix -] 40 mg PO DAILY #30 tablet.ec 11/04/17 Metoprolol Succinate [Toprol XL -] 25 mg PO DAILY 10/21/18 Albuterol 0.083% Nebulizer Nel 1 amp NEB Q4H PRN 90 Days #6 box 10/28/18 [Ventolin 0.083% Nebulizer Soln -] Nebulizer and Compressor [Portable 1 each MC BID #1 each 10/28/18 Nebulizer System] Prednisone 10 mg PO DAILY 11/20/18 REVIEW OF SYSTEMS CONSTITUTIONAL: Absent: fever, chills, diaphoresis, generalized weakness, malaise, loss of appetite, weight change HEENT: Absent: rhinorrhea, nasal congestion, throat pain, throat swelling, difficulty swallowing, mouth swelling, ear pain, eye pain, visual changes CARDIOVASCULAR: Absent: chest pain, syncope, palpitations, irregular heart rate, lightheadedness , peripheral edema RESPIRATORY: Absent: cough, shortness of breath, dyspnea with exertion, orthopnea, wheezing, stridor, hemoptysis GASTROINTESTINAL: Absent: abdominal pain, abdominal distension, nausea, vomiting, diarrhea, constipation, melena, hematochezia GENITOURINARY: Absent: dysuria, frequency, urgency, hesitancy, hematuria, flank pain, genital pain MUSCULOSKELETAL: Absent: myalgia, arthralgia, joint swelling, back pain, neck pain SKIN: Absent: rash, itching, pallor HEMATOLOGIC/IMMUNOLOGIC: Absent: easy bleeding, easy bruising, lymphadenopathy, frequent infections ENDOCRINE: Absent: unexplained weight gain, unexplained weight loss, heat intolerance, cold intolerance NEUROLOGIC: Absent: headache, focal weakness or paresthesias, dizziness, unsteady gait, seizure, mental status changes, bladder or bowel incontinence PSYCHIATRIC: Absent: anxiety, depression, suicidal or homicidal ideation, hallucinations. PHYSICAL EXAMINATION Vital Signs - 24 hr 12/07/18 12/07/18 12/07/18 12:20 13:15 13:40 Temperature 101.0 F H Pulse Rate 102 H 107 H Pulse Rate [ 92 H Left Radial] Respiratory 40 H 38 H 28 H Rate Blood Pressure 125/70 102/71 Blood Pressure 106/63 [Right Arm] O2 Sat by Pulse 99 100 100 Oximetry (%) 12/07/18 12/07/18 14:00 14:20 Temperature Pulse Rate Pulse Rate [ 91 H 90 Left Radial] Respiratory 29 H 28 H Rate Blood Pressure Blood Pressure 127/69 134/73 [Right Arm] O2 Sat by Pulse 100 100 Oximetry (%) GENERAL: AAOx3 in NAD HEAD: NC/AT EYES: EOMI, Conjunctiva clear, sclera anicteric ENT: moist mucous membrane NECK: Supple, no JVD LUNGS:decrease breath sounds at the bases HEART: AFIB, normal s1, s2, murmur no M/R/G ABDOMEN: Obese Soft, ND, NT, +BS 4 Q, no CVA Tenderness, toscano in place LOWER EXTREMITIES: trace edema, +2DP pulse, NEUROLOGICAL: No focal deficit. Normal speech. gait not observed. PSYCHIATRIC: Cooperative. Good eye contact. Appropriate mood and affect. SKIN: Warm, dry, Laboratory Results - last 24 hr 12/07/18 12/07/18 12/07/18 12:50 13:00 13:00 WBC RBC Hgb Hct MCV MCH MCHC RDW Plt Count MPV Absolute Neuts (auto) Neutrophils % Lymphocytes % Monocytes % Eosinophils % Basophils % Nucleated RBC % Hypochromia Platelet Estimate Polychromasia Anisocytosis Microcytosis Ovalocytes PT with INR 19.90 H INR 1.68 H PTT (Actin FS) 39.7 H VBG pH POC VBG pCO2 POC VBG pO2 VBG HCO3 VBG O2 Sat (Jayashree) VBG Base Excess Sodium 137 Potassium 5.2 H Chloride 98 Carbon Dioxide 34 H Anion Gap 5 L BUN 16.7 Creatinine 0.9 Est GFR (CKD-EPI)AfAm 69.01 Est GFR (CKD-EPI)NonAf 59.55 Random Glucose 183 H Lactic Acid Calcium 8.5 Phosphorus 3.2 Magnesium 2.1 Total Bilirubin 1.5 H AST 48 H ALT 28 Alkaline Phosphatase 66 Creatine Kinase 89 Troponin I 0.07 H B-Natriuretic Peptide 8687.7 H Total Protein 7.1 Albumin 3.0 L Urine Color Yellow Urine Appearance Clear Urine pH 8.5 H D Ur Specific [place] 1.007 L Urine Protein Negative Urine Glucose (UA) Negative Urine Ketones Negative Urine Blood Negative Urine Nitrite Negative Urine Bilirubin Negative Urine Urobilinogen 1.0 Ur Leukocyte Esterase Negative 12/07/18 12/07/18 12/07/18 13:00 13:00 13:00 WBC 6.1 RBC 4.39 Hgb 9.1 L Hct 29.5 L MCV 67.2 L MCH 20.8 L MCHC 30.9 L RDW 19.3 H Plt Count 214 D MPV 8.9 Absolute Neuts (auto) 4.3 Neutrophils % 69.8 D Lymphocytes % 18.6 Monocytes % 7.6 Eosinophils % 2.6 Basophils % 1.4 Nucleated RBC % 0 Hypochromia 1+ Platelet Estimate Adequate Polychromasia 1+ Anisocytosis 1+ Microcytosis 1+ Ovalocytes 1+ PT with INR INR PTT (Actin FS) VBG pH 7.42 H POC VBG pCO2 55.1 H POC VBG pO2 70.9 H VBG HCO3 34.7 H VBG O2 Sat (Jayashree) 94.4 H VBG Base Excess 9.2 H Sodium Potassium Chloride Carbon Dioxide Anion Gap BUN Creatinine Est GFR (CKD-EPI)AfAm Est GFR (CKD-EPI)NonAf Random Glucose Lactic Acid 1.3 Calcium Phosphorus Magnesium Total Bilirubin AST ALT Alkaline Phosphatase Creatine Kinase Troponin I B-Natriuretic Peptide Total Protein Albumin Urine Color Urine Appearance Urine pH Ur Specific [place] Urine Protein Urine Glucose (UA) Urine Ketones Urine Blood Urine Nitrite Urine Bilirubin Urine Urobilinogen Ur Leukocyte Esterase CBC, BMP 12/07/18 13:00 12/07/18 13:00 ASSESSMENT/PLAN: 83 year old female with a significant past medical history of COPD (trilogy machine), CHF, CAD/ID/cath, Afib (on eliquis), Afib, HTN, HLD, Type 2 DM who presents to the ED via EMS with dyspnea on exertion.was found ti have fever 101, HR 110 and RLB atelectasis admitted for HPNA . # Sepsis 2/2 PNA * dry cough , RLB atelectsis , HR 110, Fever 101 * Candelaria cx * Abx start Cefepim and Vanco to cover HPNA as pt recently discharged from hospital * Pen allergy * ID consulted Dr Marsh * hold lasix for now \ * BIPAP # CHF S/D * will hold lasix as pt in spsis due to PNA * daily weight , I& O * CArdiology consult Dr Zapata * revaluate in AM * # Mild hyperkalemia * 5.2 repeat BMP at 10 pm * no EKG changes # 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 # COPD cont Duoneb, Albuterol, Prednisone 10 mg po daily , BIPAP as needed # CAD/ID/ # AFIB on ELiquis 5 BID ,Toprol XL 25 po daily #HTN # HLD on Lipitor 40 daily # DM # HYpothyroidism: cont Synthroid # GERD : PPi 40 daily #FEN * F: NS @ 42 cc with cautions * E: Hyperkalemia monitor for now * N:low NA diabetic diet # Proph : Dvts : On Eliquis # Dispo: monitor on tele Visit type - Emergency Visit Emergency Visit: Yes ED Registration Date: 12/07/18 Care time: The patient presented to the Emergency Department on the above date and was hospitalized for further evaluation of their emergent condition. - New Patient This patient is new to me today: Yes Date on this admission: 12/07/18 - Critical Care Critical Care patient: No ATTENDING PHYSICIAN STATEMENT I saw and evaluated the patient. I reviewed the resident's note and discussed the case with the resident. I agree with the resident's findings and plan as documented. SUBJECTIVE: OBJECTIVE: ASSESSMENT AND PLAN:
--- NOTE | 2018-12-07 16:02 | PDOC ---
Documentation entered by Jonatan Ponce SCRIBE, acting as scribe for Narendra Carey MD. Narendra Carey MD: This documentation has been prepared by the Kris light Elijah, SCRIBE, under my direction and personally reviewed by me in its entirety. I confirm that the documentation accurately reflects all work, treatment, procedures, and medical decision making performed by me. Attending Attestation - Resident Resident Name: Elua Gómez - ED Attending Attestation I have performed the following: I have examined & evaluated the patient, The case was reviewed & discussed with the resident, I agree w/resident's findings & plan, Exceptions are as noted - HPI HPI: 12/07/18 14:59 Patient is an 83 year old female with a significant past medical history of COPD (trilogy machine), CHF, CAD/TN/cath, Afib (on eliquis), Afib, HTN, HLD, Type 2 DM who presents to the ED via EMS with dyspnea on exertion. Patient reports that the patient can only walk from room to room before getting tired which she said was far less than her baseline. Patient also reports b/l leg swelling. DEnies fevers, chills, cp, headache, dizziness, weakness/numbbness, abd pain, urinary sxs Allergies: Penicillins, Apple Juice PCP: Dr. Fournier Assistant General Manager: Dr. Zapata Pulmonolgist: Dr. Ramirez Renal: Dr. Agosto 12/07/18 15:53 - Physicial Exam PE: 12/07/18 15:10 GENERAL: Awake, alert, and fully oriented, in no acute distress. HEAD: No signs of trauma EYES: PERRLA, EOMI, sclera anicteric, conjunctiva clear ENT: Auricles normal inspection, hearing grossly normal, nares patent, oropharynx clear without exudates. Moist mucosa NECK: Nontender, no stepoffs, Normal ROM, supple, no lymphadenopathy, JVD, or masses LUNGS: +Diminished Breath Sounds bilaterally. +Crackles at right Base. No wheezes. No increased WOB HEART: Regular rate and rhythm, normal S1 and S2, no murmurs, rubs or gallops ABDOMEN: Soft, nontender, normoactive bowel sounds. No guarding, no rebound. No masses EXTREMITIES: Normal range of motion, 1+ LE edema b/l to knees, symmetric. No clubbing or cyanosis. No cords, erythema, or tenderness NEUROLOGICAL: Cranial nerves II through XII intact. 5/5 strength and sensation in all extremities, Normal speech, normal cerebellar function SKIN: Warm, Dry, normal turgor, no rashes or lesions noted. - Medical Decision Making 12/07/18 16:00 83yo F presents to the ED with SOB, weakness Vitals with fever, tachycardia, tachypnea Tachypnea resolved with O2 No wheezing or diminished BS to suggest acute COPD exacerbation CXR with new changes to R base, in concert with fever and crackles on exam, concern for PNA Pt also possibly with concurrent CHF exacerbation Pt covered empirically, admitted for further mgmt/dispo Case discussed in detail with admitting physician including history, physical exam and ancillary studies. Admitting physician has assumed care for the patient, will follow all pending diagnostics and will complete the evaluation and treatment.
[2018-12-07 16:23] LABS: ARTERIAL BLD GAS O2 SATURATION 98.4 % (95-98); ARTERIAL BLOOD GAS BASE EXCESS 7.6 meq/l (-2-2); ARTERIAL BLOOD GAS PCO2 55.2 mmHg (35-45); ARTERIAL BLOOD GAS PO2 109 mmHg (80-105); ARTERIAL BLOOD GAS pH 7.39 (7.35-7.45); CARBOXYHEMOGLOBIN 1.4 % (0-2)
[2018-12-07 16:30] LABS: ALLENS TEST POSITIVE
[2018-12-07] MEDS ORDERED: CALCIUM GLUCONATE 10% - 1,000 MG/10 ML VIAL IVPB ONE (16:35)
[2018-12-07] MEDS ORDERED: SODIUM POLYSTYRENE SULFONATE 15 GM/60 ML BOTTLE PO ONE (16:35)
--- NOTE | 2018-12-07 17:14 | PN ---
Teaching Attending Note Name of Resident: David Webster ATTENDING PHYSICIAN STATEMENT I saw and evaluated the patient. I reviewed the resident's note and discussed the case with the resident. I agree with the resident's findings and plan as documented. CC: I was having trouble breathing HPI: Mrs Kolby Sharp is an 83 year old female who was brought in for difficulty breathing. Patient is Slov[place] speaking and history comes from daughter. Patient states that she woke up this morning and felt short of breath. Her aid came in and took her oxygen and it was low. Because of this EMS was called and she was brought in. Currently she says her breathing is better. Daughter says patient normally has low oxygen in the morning and her current check was baseline. Also she says she is normally short of breath in the morning and was at baseline as well. Patient denies fevers, chills, lightheadedness, dizziness, passing out, chest pain, nausea, vomiting, diarrhea, constipation, or difficulty urinating. She has chronic leg swelling that is unchanged. 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 Cardio/Vascular AFIB,CAD,CHF,HTN,ND Gastrointestinal GERD,Hiatal Hernia Endocrine Hypothyroidism Home Medications Medication Instructions Recorded Insulin Lispro [Humalog] 0 unit SQ TIDCM PRN 03/02/14 Apixaban [Eliquis -] 5 mg PO BID #60 tablet 06/09/17 Insulin (Levemir) [Levemir Vial] 15 unit SQ HS 07/16/17 Furosemide [Lasix] 40 mg PO DAILY #30 tablet 07/20/17 Levothyroxine [Synthroid -] 25 mcg PO DAILY 10/27/17 Atorvastatin Ca [Lipitor] 40 mg PO HS #30 tablet 11/04/17 Pantoprazole Sodium [Protonix -] 40 mg PO DAILY #30 tablet.ec 11/04/17 Metoprolol Succinate [Toprol XL -] 25 mg PO DAILY 10/21/18 Albuterol 0.083% Nebulizer Nel 1 amp NEB Q4H PRN 90 Days #6 box 10/28/18 [Ventolin 0.083% Nebulizer Soln -] Nebulizer and Compressor [Portable 1 each MC BID #1 each 10/28/18 Nebulizer System] Prednisone 10 mg PO DAILY 11/20/18 Social History Smoking history Unknown if ever smoked Have you smoked in the past 12 No months Hx Alcohol Use No History of Substance Use None Usual Living Arrangement With Child ADL Family Assistance ROS: full review of systems obtained, as per HPI and otherwise negative OBJECTIVE: Last Vital Signs Temp Pulse Resp BP Pulse Ox 38.3 C H 90 28 H 134/73 100 12/07/18 12:20 12/07/18 14:20 12/07/18 14:20 12/07/18 14:20 12/07/18 14:20 Gen: nad, obese HEENT: perrla, eomi, mmm Pulm: ronchi bilaterally w/o w/r, on oxygen CV: rrr w/o m/r/g Abd: +bs, s/nt/nd Ext: 2+ BLE edema CBC, BMP 12/07/18 13:00 12/07/18 13:00 ASSESSMENT AND PLAN: -patient with HCAP and sepsis -also with hypoxic respiratory failure -admit to telemetry -started on vancomycin and cefepime -continue these antibiotics for HCAP -gentle hydration for sepsis -history of CHF, no diuresis and consult cardiology -low dose kayexalate for hyperkalemia -monitor for improvement Problem List - Problems (1) HCAP (healthcare-associated pneumonia) Code(s): J18.9 - PNEUMONIA, UNSPECIFIED ORGANISM (2) Sepsis Code(s): A41.9 - SEPSIS, UNSPECIFIED ORGANISM (3) Hyperkalemia Code(s): E87.5 - HYPERKALEMIA (4) Diabetes Code(s): E11.9 - TYPE 2 DIABETES MELLITUS WITHOUT COMPLICATIONS Qualifiers: Diabetes mellitus type: type 2 Diabetes mellitus extermination inspector insulin use: with mcc use Diabetes mellitus complication status: with hyperglycemia Qualified Code(s): E11.65 - Type 2 diabetes mellitus with hyperglycemia; Z79.4 - tank terminal gauger (current) use of insulin (5) Hypothyroid Code(s): E03.9 - HYPOTHYROIDISM, UNSPECIFIED (6) Acute respiratory failure with hypoxia Code(s): J96.01 - ACUTE RESPIRATORY FAILURE WITH HYPOXIA (7) Atrial fibrillation Code(s): I48.91 - UNSPECIFIED ATRIAL FIBRILLATION Qualifiers: Atrial fibrillation type: paroxysmal Qualified Code(s): I48.0 - Paroxysmal atrial fibrillation (8) CAD (coronary artery disease) Code(s): I25.10 - ATHSCL HEART DISEASE OF [place] CORONARY ARTERY W/O ANG PCTRS Qualifiers: Coronary Disease-Associated Artery/Lesion type: [place] artery [place] vs. transplanted heart: [place] heart Associated angina: without angina Qualified Code(s): I25.10 - Atherosclerotic heart disease of [place] coronary artery without angina pectoris (9) CHF exacerbation Code(s): I50.9 - HEART FAILURE, UNSPECIFIED Qualifiers: Heart failure type: unspecified Qualified Code(s): I50.9 - Heart failure, unspecified (10) COPD (chronic obstructive pulmonary disease) Code(s): J44.9 - CHRONIC OBSTRUCTIVE PULMONARY DISEASE, UNSPECIFIED Qualifiers: COPD type: unspecified COPD Qualified Code(s): J44.9 - Chronic obstructive pulmonary disease, unspecified (11) HTN (hypertension) Code(s): I10 - ESSENTIAL (PRIMARY) HYPERTENSION Qualifiers: Hypertension type: essential hypertension Qualified Code(s): I10 - Essential (primary) hypertension (12) Hyperlipidemia Code(s): E78.5 - HYPERLIPIDEMIA, UNSPECIFIED Qualifiers: Hyperlipidemia type: pure hypercholesterolemia Qualified Code(s): E78.00 - Pure hypercholesterolemia, unspecified; E78.0 - Pure hypercholesterolemia (13) Obesity (BMI 30-39.9) Code(s): E66.9 - OBESITY, UNSPECIFIED
[2018-12-07] MEDS ORDERED: VANCOMYCIN 1 GRAM (PRE-DOCKED) 1,000 MG/250 ML BAG IVPB SCH ×2 (17:15→18:30)
[2018-12-07] MEDS ORDERED: CEFEPIME 2 GM in DEXTROSE 5%-WATER 100 ML IVPB SCH (18:00)
[2018-12-07] MEDS ORDERED: CALCIUM GLUCONATE 10% - 1,000 MG/10 ML VIAL ONE (19:45)
[2018-12-07] MEDS: SODIUM CHLORIDE 500 ML IV SCH (20:05)
[2018-12-07] MEDS ORDERED: [UNRECOGNIZED DRUG - OTHER] MC SCH (22:00)
[2018-12-07] MEDS ORDERED: INSULIN (LEVEMIR) 100 UNITS/ML UNITS SQ SCH ×2 (22:00)
[2018-12-07] MEDS: INSULIN SLIDING SCALE (NOVOLOG) 1 VIAL SQ SCH (22:17)
[2018-12-07] MEDS: APIXABAN 5 MG TABLET PO SCH (22:17)
[2018-12-07] MEDS: ATORVASTATIN CA 40 MG TABLET (FP) PO SCH (22:17)
[2018-12-08] MEDS: ALBUTEROL SO4 2.5/IPRATROPIUM 0.5 INH SOL 3 ML VIAL.NEB. NEB PRN ×2 (00:40→20:45)
[2018-12-08] MEDS: CEFEPIME 2 GM in DEXTROSE 5%-WATER 100 ML IVPB SCH ×2 (02:05→11:47)
[2018-12-08] MEDS ORDERED: ONDANSETRON 4 MG/2 ML VIAL IVPUSH ONE (02:38)
[2018-12-08] MEDS ORDERED: FUROSEMIDE 40 MG/4 ML INJECTABLE VIAL IVPUSH ONE (02:42)
[2018-12-08] MEDS: ALBUTEROL SO4 0.083% IH SOL 2.5 MG/3 ML VIAL.NEB. NEB PRN (03:05)
[2018-12-08] MEDS: VANCOMYCIN 1 GRAM (PRE-DOCKED) 1,000 MG/250 ML BAG IVPB SCH ×2 (03:25→15:23)
[2018-12-08] MEDS: LEVOTHYROXINE NA 25 MCG TABLET (FP) PO SCH (06:12)
[2018-12-08] MEDS: INSULIN SLIDING SCALE (NOVOLOG) 1 VIAL SQ SCH ×4 (06:12→22:00)
[2018-12-08 06:48] LABS: BASO % 0.3 % (0-2.0); EOS % 0.4 % (0-4.5); HEMATOCRIT 27.7 % (32.4-45.2); HEMOGLOBIN 8.6 GM/dL (10.7-15.3); LYMPH % 4.5 % (8-40); MCH 20.8 pg (25.7-33.7); MEAN CELL VOLUME 66.9 fl (80-96); MEAN PLT VOLUME 8.7 fl (7.5-11.1); MONO % 5.8 % (3.8-10.2); PLATELET COUNT 179 K/MM3 (134-434); RBC 4.15 M/mm3 (3.60-5.2); RDW 19.2 % (11.6-15.6); WHITE BLOOD COUNT 7.4 K/mm3 (4.0-10.0)
[2018-12-08 07:15] LABS: INR 1.62 (0.83-1.09); PROTHROMBIN TIME (PATIENT) 19.2 SEC (9.7-13.0)
[2018-12-08 07:17] LABS: ACTIVATED PTT 36.3 SECONDS (25.2-36.5); ALBUMIN 2.9 g/dl (3.4-5.0); BILIRUBIN,TOTAL 1.7 mg/dL (0.2-1); BLOOD UREA NITROGEN 19.3 mg/dL (7-18); CALCIUM 8.5 mg/dL (8.5-10.1); MAGNESIUM 1.9 mg/dL (1.8-2.4); POTASSIUM 4.6 mmol/L (3.5-5.1); TOT PROT 6.8 g/dl (6.4-8.2)
[2018-12-08] MEDS ORDERED: PT OWN MED DRAWER 7, Y5N ONE (10:01)
[2018-12-08] MEDS: PANTOPRAZOLE 40 MG TABLET (FP) PO SCH (10:13)
[2018-12-08] MEDS: APIXABAN 5 MG TABLET PO SCH ×2 (10:13→21:37)
[2018-12-08] MEDS: metoPROLOL SUCCINATE 25 MG TAB.SR.24H (FP) PO SCH (10:14)
[2018-12-08] MEDS: predniSONE 10 MG TABLET (UD) PO SCH (10:14)
[2018-12-08] MEDS ORDERED: FUROSEMIDE 40 MG/4 ML INJECTABLE VIAL ONE (10:28)
--- NOTE | 2018-12-08 11:26 | EKG ---
Test Reason : Blood Pressure : / mmHG Vent. Rate : 083 BPM Atrial Rate : 278 BPM P-R Int : 000 ms QRS Dur : 122 ms QT Int : 434 ms P-R-T Axes : 000 -61 026 degrees QTc Int : 509 ms ATRIAL FLUTTER WITH VARIABLE A-V BLOCK LEFT AXIS DEVIATION RSR' OR QR PATTERN IN V1 SUGGESTS RIGHT VENTRICULAR CONDUCTION DELAY LEFT VENTRICULAR HYPERTROPHY WITH QRS WIDENING INFERIOR INFARCT , AGE UNDETERMINED ANTEROLATERAL INFARCT (CITED ON OR BEFORE 24-OCT-2018) ABNORMAL ECG WHEN COMPARED WITH ECG OF 07-DEC-2018 12:21, ATRIAL FLUTTER HAS REPLACED ATRIAL FIBRILLATION RSR' PATTERN IN V1 HAS REPLACED RIGHT BUNDLE BRANCH BLOCK INFERIOR INFARCT IS NOW PRESENT QUESTIONABLE CHANGE IN INITIAL FORCES OF LATERAL LEADS Confirmed by Jurgen Tatum MD ([id number]) on 12/08/2018 11:25:57 AM Referred By: Confirmed By:Jurgen Tatum MD
--- NOTE | 2018-12-08 11:27 | EKG ---
Test Reason : Blood Pressure : / mmHG Vent. Rate : 102 BPM Atrial Rate : 048 BPM P-R Int : 000 ms QRS Dur : 120 ms QT Int : 374 ms P-R-T Axes : 000 -63 069 degrees QTc Int : 487 ms ATRIAL FIBRILLATION WITH RAPID VENTRICULAR RESPONSE WITH PREMATURE VENTRICULAR OR ABERRANTLY CONDUCTED COMPLEXES LEFT AXIS DEVIATION RIGHT BUNDLE BRANCH BLOCK MINIMAL VOLTAGE CRITERIA FOR LVH, MAY BE NORMAL VARIANT ANTERIOR INFARCT , AGE UNDETERMINED ABNORMAL ECG WHEN COMPARED WITH ECG OF 13-NOV-2018 08:41, ATRIAL FIBRILLATION HAS REPLACED SINUS RHYTHM ANTERIOR INFARCT IS NOW PRESENT Confirmed by Jurgen Tatum MD ([id number]) on 12/08/2018 11:26:47 AM Referred By: Confirmed By:Jurgen Tatum MD
--- NOTE | 2018-12-08 11:32 | CON.CARD ---
Cardiology Consult (text) - Consultation Consultation Note: Chief Complaint: alt MS History of Present Illness: 83F h/o COPD, chronic systolic HF, CAD h/o [place], afib, HLD, DM p/w fatigue, dyspnea, fever. Treating for PNA. Recently discharged, was admitted with respiratory failure, alt mental status, bradycardia in setting of hyperkalemia with trop >20. Was treated for NSTEMI, cardiogenic shock and [place] [facility] [place]21 for cardiac cath. [place] [facility] [place] showed EF 40%, WMA in LAD territory, severe . LHC showed patent stents and stable CAD compared to 2013, no intervention. Discharged 11/25. Sees for cardio. 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 dysf) Cardio/Vascular: Yes: AFIB, CAD, CHF, HTN, SC Gastrointestinal: Yes: GERD, Hiatal Hernia Endocrine: Yes: Hypothyroidism - Alcohol/Substance Use Hx Alcohol Use: No History of Substance Use: reports: None - Smoking History Smoking history: Unknown if ever smoked Have you smoked in the past 12 months: No - Social History ADL: Family Assistance History of Recent Travel: Yes (arrived from [place] 2 months ago) Home Medications - Allergies Allergies/Adverse Reactions: Allergies Allergy/AdvReac Type Severity Reaction Status Date / Time Penicillins Allergy Unknown Verified 12/07/18 13:04 Apple juice Allergy Uncoded 12/07/18 13:04 - Home Medications Ambulatory Orders Insulin Lispro [Humalog] 0 unit SQ TIDCM PRN 03/02/14 Apixaban [Eliquis -] 5 mg PO BID #60 tablet 06/09/17 Insulin (Levemir) [Levemir Vial] 15 unit SQ HS 07/16/17 Furosemide [Lasix] 40 mg PO DAILY #30 tablet 07/20/17 Levothyroxine [Synthroid -] 25 mcg PO DAILY 10/27/17 Atorvastatin Ca [Lipitor] 40 mg PO HS #30 tablet 11/04/17 Pantoprazole Sodium [Protonix -] 40 mg PO DAILY #30 tablet.ec 11/04/17 Metoprolol Succinate [Toprol XL -] 25 mg PO DAILY 10/21/18 Albuterol 0.083% Nebulizer Nel [Ventolin 0.083% Nebulizer Soln -] 1 amp NEB Q4H PRN 90 Days #6 box 10/28/18 Nebulizer and Compressor [Portable Nebulizer System] 1 each MC BID #1 each 10/28 Prednisone 10 mg PO DAILY 11/20/18 Family Disease History - Family Disease History Family History: Unable to Obtain Review of Systems Unable to obtain ROS, reason: intubated Vital Signs Period Temp Pulse Resp BP Sys/Gardner Pulse Ox Last 24 Hr 98.0 F-101.0 F 80-118 20-40 102-167/54-85 97-100 Constitutional: Yes: Well Nourished, No Distress Eyes: No: Sclera Icterus HENT: No: Nasal Congestion Neck: No: Decreased ROM Respiratory: Yes: CTA Bilaterally. No: Accessory Muscle Use, Rales, Wheezes Gastrointestinal: Yes: Normal Bowel Sounds. No: Distention, Hepatomegaly, Palpable Mass, Tenderness Cardiovascular: Yes: Regular Rate and Rhythm JVD: No Carotid Bruit: No PMI: Non-Displaced Heart Sounds: Yes: S1, S2. No: Gallop Edema: No Peripheral Pulses: 2+ Left Carotid, 2+ Right Carotid, 2+ Left Doralis Pedis, 2+ Right Dorsalis Pedis Integumentary: No: Jaundice Neurological: No: Alert, Oriented Psychiatric: No: Agitated Laboratory Last Values WBC 7.4 K/mm3 (4.0-10.0) 12/08/18 06:20 RBC 4.15 M/mm3 (3.60-5.2) 12/08/18 06:20 Hgb 8.6 GM/dL (10.7-15.3) L 12/08/18 06:20 Hct 27.7 % (32.4-45.2) L 12/08/18 06:20 MCV 66.9 fl (80-96) L 12/08/18 06:20 MCH 20.8 pg (25.7-33.7) L 12/08/18 06:20 MCHC 31.0 g/dl (32.0-36.0) L 12/08/18 06:20 RDW 19.2 % (11.6-15.6) H 12/08/18 06:20 Plt Count 179 K/MM3 (134-434) 12/08/18 06:20 MPV 8.7 fl (7.5-11.1) 12/08/18 06:20 Absolute Neuts (auto) 6.6 K/mm3 (1.5-8.0) 12/08/18 06:20 Neutrophils % 89.0 % (42.8-82.8) H D 12/08/18 06:20 Lymphocytes % 4.5 % (8-40) L D 12/08/18 06:20 Monocytes % 5.8 % (3.8-10.2) 12/08/18 06:20 Eosinophils % 0.4 % (0-4.5) D 12/08/18 06:20 Basophils % 0.3 % (0-2.0) 12/08/18 06:20 Nucleated RBC % 0 % (0-0) 12/08/18 06:20 Hypochromia 1+ 12/07/18 13:00 Platelet Estimate Adequate 12/07/18 13:00 Polychromasia 1+ 12/07/18 13:00 Anisocytosis 1+ 12/07/18 13:00 Microcytosis 1+ 12/07/18 13:00 Ovalocytes 1+ 12/07/18 13:00 PT with INR 19.20 SEC (9.7-13.0) H 12/08/18 06:20 INR 1.62 (0.83-1.09) H 12/08/18 06:20 PTT (Actin FS) 36.3 SECONDS (25.2-36.5) 12/08/18 06:20 Anticoagulation Therapy No Result Required. 12/07/18 16:00 Puncture Site Left radial 12/07/18 16:00 ABG pH 7.39 (7.35-7.45) 12/07/18 16:00 ABG pCO2 at Pt Temp 55.2 mmHg (35-45) H 12/07/18 16:00 ABG pO2 at Pt Temp 109 mmHg (80-105) H 12/07/18 16:00 ABG HCO3 33.0 mmol/L (22-27) H 12/07/18 16:00 ABG O2 Sat (Measured) 98.4 % (95-98) H 12/07/18 16:00 ABG O2 Content 11.2 % vol (15-22) L 12/07/18 16:00 ABG Base Excess 7.6 meq/l (-2-2) H 12/07/18 16:00 Krishan Test Positive 12/07/18 16:00 VBG pH 7.42 (7.31-7.41) H 12/07/18 13:00 POC VBG pCO2 55.1 mmHg (41-51) H 12/07/18 13:00 POC VBG pO2 70.9 mmHg (30-40) H 12/07/18 13:00 VBG HCO3 34.7 mmol/L (23-29) H 12/07/18 13:00 VBG O2 Sat (Jayashree) 94.4 % (70-80) H 12/07/18 13:00 VBG Base Excess 9.2 meq/l (-2-2) H 12/07/18 13:00 Carboxyhemoglobin 1.4 % (0-2) 12/07/18 16:00 Methemoglobin 0.7 % (0-2) 12/07/18 16:00 O2 Delivery Device No Result Required. 12/07/18 16:00 Oxygen Flow Rate No Result Required. 12/07/18 16:00 Vent Mode No Result Required. 12/07/18 16:00 Vent Rate No Result Required. 12/07/18 16:00 Mechanical Rate No Result Required. 12/07/18 16:00 Pressure Support Vent No Result Required. 12/07/18 16:00 Sodium 138 mmol/L (136-145) 12/08/18 06:20 Potassium 4.6 mmol/L (3.5-5.1) 12/08/18 06:20 Chloride 99 mmol/L (98-107) 12/08/18 06:20 Carbon Dioxide 32 mmol/L (21-32) 12/08/18 06:20 Anion Gap 7 MMOL/L (8-16) L 12/08/18 06:20 BUN 19.3 mg/dL (7-18) H 12/08/18 06:20 Creatinine 1.0 mg/dL (0.55-1.3) 12/08/18 06:20 Est GFR (CKD-EPI)AfAm 60.76 12/08/18 06:20 Est GFR (CKD-EPI)NonAf 52.42 12/08/18 06:20 POC Glucometer 241 UNITS (80-120) 12/08/18 06:02 Random Glucose 247 mg/dL (74-106) H 12/08/18 06:20 Lactic Acid 1.3 mmol/L (0.4-2.0) 12/07/18 13:00 Calcium 8.5 mg/dL (8.5-10.1) 12/08/18 06:20 Phosphorus 4.0 mg/dL (2.5-4.9) 12/08/18 06:20 Magnesium 1.9 mg/dL (1.8-2.4) 12/08/18 06:20 Total Bilirubin 1.7 mg/dL (0.2-1) H 12/08/18 06:20 AST 23 U/L (15-37) 12/08/18 06:20 ALT 22 U/L (13-61) 12/08/18 06:20 Alkaline Phosphatase 65 U/L (45-117) 12/08/18 06:20 Creatine Kinase 89 U/L (26-192) 12/07/18 13:00 Troponin I 0.11 ng/ml (0.00-0.05) H 12/08/18 06:20 B-Natriuretic Peptide 8687.7 pg/ml (5-450) H 12/07/18 13:00 Total Protein 6.8 g/dl (6.4-8.2) 12/08/18 06:20 Albumin 2.9 g/dl (3.4-5.0) L 12/08/18 06:20 Urine Color Yellow 12/07/18 12:50 Urine Appearance Clear 12/07/18 12:50 Urine pH 8.5 (5.0-8.0) H D 12/07/18 12:50 Ur Specific [place] 1.007 (1.010-1.035) L 12/07/18 12:50 Urine Protein Negative (NEGATIVE) 12/07/18 12:50 Urine Glucose (UA) Negative (NEGATIVE) 12/07/18 12:50 Urine Ketones Negative (NEGATIVE) 12/07/18 12:50 Urine Blood Negative (NEGATIVE) 12/07/18 12:50 Urine Nitrite Negative (NEGATIVE) 12/07/18 12:50 Urine Bilirubin Negative (NEGATIVE) 12/07/18 12:50 Urine Urobilinogen 1.0 mg/dL (0.2-1.0) 12/07/18 12:50 Ur Leukocyte Esterase Negative (NEGATIVE) 12/07/18 12:50 Assessment/Plan cath 07/2018: lm 50, mlad 80 (isr), d1 90, lcx 90, mrca 70 cath 11/22/18 LVEDP 28 mmHg (post nitro 20 mmHg). Mid HLP40-46% lesion; D1 ostial 70% lesion; mLAD and D1 stents are patent; ostial LCx 80-90% calcified lesion. No new significant lesion compared to the coronary angiogram done on 11/19/13. LVEF:40% echo 11/21/[place] [facility] [place] to mod LV dilation, moderately dec LV function EF 40%, hypokinesis of apical septum and apex, no thrombus with contrastr used, nl RV, severe peak V 2.5 m/s, peak/mean gradient 25/15 mmHg, USHA 0.69 cm2, DI 0.23, mild AR, mild MR CXR: +congestive changes tele: sinus A/P: 83 yr old lady with known CAD/pci, chf, HTN, HPL, DM, pad, obesity, pafib (dx 05/2017 when admitted for copd) here with shortness of breaty PNA, sepsis - manage per primary, ID elevated trop - flat trend, indeterminate range, no ischemic changes - likely demand in setting of infection CAD - s/p cath at [facility] [place] - stable CAD, no intervention - cont toprol, lipitor, eliquis chronic systolic HF - mild congestion on CXR in ER - received IV lasix overnight - appears euvolemic today - EF 40% on most recent echo at [facility] - holding home lasix in setting of sepsis - monitor daily weights, volume status - cont metoprolol afib - sinus here - cont eliquis, toprol HLD - cont statin DM - manage per primary hypothyroidism - manage per primary COPD - manage per primary HTN - cont home meds
--- NOTE | 2018-12-08 13:05 | PN ---
Physical Exam: SUBJECTIVE: Patient seen and examined on BIPAP at night revieved 40 lasix over night due to sob denies any chest pain or palpitation , OBJECTIVE: Vital Signs Period Temp Pulse Resp BP Sys/Gardner Pulse Ox Last 24 Hr 98.0 F-98.4 F 80-118 20-38 102-167/54-85 97-100 GENERAL: AAOx3 in NAD HEAD: NC/AT EYES: EOMI, Conjunctiva clear, sclera anicteric ENT: moist mucous membrane NECK: Supple, no JVD LUNGS:decrease breath sounds at the bases HEART: AFIB, normal s1, s2, murmur no M/R/G ABDOMEN: Obese Soft, ND, NT, +BS 4 Q, no CVA Tenderness, toscano in place LOWER EXTREMITIES: trace edema, +2DP pulse, NEUROLOGICAL: No focal deficit. Normal speech. gait not observed. PSYCHIATRIC: Cooperative. Good eye contact. Appropriate mood and affect. SKIN: Warm, dry, Laboratory Results - last 24 hr 12/07/18 12/07/18 12/07/18 12:50 13:00 13:00 WBC RBC Hgb Hct MCV MCH MCHC RDW Plt Count MPV Absolute Neuts (auto) Neutrophils % Lymphocytes % Monocytes % Eosinophils % Basophils % Nucleated RBC % Hypochromia Platelet Estimate Polychromasia Anisocytosis Microcytosis Ovalocytes PT with INR 19.90 H INR 1.68 H PTT (Actin FS) 39.7 H Anticoagulation Therapy Puncture Site ABG pH ABG pCO2 at Pt Temp ABG pO2 at Pt Temp ABG HCO3 ABG O2 Sat (Measured) ABG O2 Content ABG Base Excess Krishan Test VBG pH POC VBG pCO2 POC VBG pO2 VBG HCO3 VBG O2 Sat (Jayashree) VBG Base Excess Carboxyhemoglobin Methemoglobin O2 Delivery Device Oxygen Flow Rate Vent Mode Vent Rate Mechanical Rate Pressure Support Vent Sodium 137 Potassium 5.2 H Chloride 98 Carbon Dioxide 34 H Anion Gap 5 L BUN 16.7 Creatinine 0.9 Est GFR (CKD-EPI)AfAm 69.01 Est GFR (CKD-EPI)NonAf 59.55 POC Glucometer Random Glucose 183 H Lactic Acid Calcium 8.5 Phosphorus 3.2 Magnesium 2.1 Total Bilirubin 1.5 H AST 48 H ALT 28 Alkaline Phosphatase 66 Creatine Kinase 89 Troponin I 0.07 H B-Natriuretic Peptide 8687.7 H Total Protein 7.1 Albumin 3.0 L Urine Color Yellow Urine Appearance Clear Urine pH 8.5 H D Ur Specific [place] 1.007 L Urine Protein Negative Urine Glucose (UA) Negative Urine Ketones Negative Urine Blood Negative Urine Nitrite Negative Urine Bilirubin Negative Urine Urobilinogen 1.0 Ur Leukocyte Esterase Negative 12/07/18 12/07/18 12/07/18 13:00 13:00 13:00 WBC 6.1 RBC 4.39 Hgb 9.1 L Hct 29.5 L MCV 67.2 L MCH 20.8 L MCHC 30.9 L RDW 19.3 H Plt Count 214 D MPV 8.9 Absolute Neuts (auto) 4.3 Neutrophils % 69.8 D Lymphocytes % 18.6 Monocytes % 7.6 Eosinophils % 2.6 Basophils % 1.4 Nucleated RBC % 0 Hypochromia 1+ Platelet Estimate Adequate Polychromasia 1+ Anisocytosis 1+ Microcytosis 1+ Ovalocytes 1+ PT with INR INR PTT (Actin FS) Anticoagulation Therapy Puncture Site ABG pH ABG pCO2 at Pt Temp ABG pO2 at Pt Temp ABG HCO3 ABG O2 Sat (Measured) ABG O2 Content ABG Base Excess Krishan Test VBG pH 7.42 H POC VBG pCO2 55.1 H POC VBG pO2 70.9 H VBG HCO3 34.7 H VBG O2 Sat (Jayashree) 94.4 H VBG Base Excess 9.2 H Carboxyhemoglobin Methemoglobin O2 Delivery Device Oxygen Flow Rate Vent Mode Vent Rate Mechanical Rate Pressure Support Vent Sodium Potassium Chloride Carbon Dioxide Anion Gap BUN Creatinine Est GFR (CKD-EPI)AfAm Est GFR (CKD-EPI)NonAf POC Glucometer Random Glucose Lactic Acid 1.3 Calcium Phosphorus Magnesium Total Bilirubin AST ALT Alkaline Phosphatase Creatine Kinase Troponin I B-Natriuretic Peptide Total Protein Albumin Urine Color Urine Appearance Urine pH Ur Specific [place] Urine Protein Urine Glucose (UA) Urine Ketones Urine Blood Urine Nitrite Urine Bilirubin Urine Urobilinogen Ur Leukocyte Esterase 12/07/18 12/07/18 12/07/18 16:00 18:49 22:12 WBC RBC Hgb Hct MCV MCH MCHC RDW Plt Count MPV Absolute Neuts (auto) Neutrophils % Lymphocytes % Monocytes % Eosinophils % Basophils % Nucleated RBC % Hypochromia Platelet Estimate Polychromasia Anisocytosis Microcytosis Ovalocytes PT with INR INR PTT (Actin FS) Anticoagulation Therapy No Result Required. Puncture Site Left radial ABG pH 7.39 ABG pCO2 at Pt Temp 55.2 H ABG pO2 at Pt Temp 109 H ABG HCO3 33.0 H ABG O2 Sat (Measured) 98.4 H ABG O2 Content 11.2 L ABG Base Excess 7.6 H Krishan Test Positive VBG pH POC VBG pCO2 POC VBG pO2 VBG HCO3 VBG O2 Sat (Jayashree) VBG Base Excess Carboxyhemoglobin 1.4 Methemoglobin 0.7 O2 Delivery Device No Result Required. Oxygen Flow Rate No Result Required. Vent Mode No Result Required. Vent Rate No Result Required. Mechanical Rate No Result Required. Pressure Support Vent No Result Required. Sodium Potassium Chloride Carbon Dioxide Anion Gap BUN Creatinine Est GFR (CKD-EPI)AfAm Est GFR (CKD-EPI)NonAf POC Glucometer 329 290 Random Glucose Lactic Acid Calcium Phosphorus Magnesium Total Bilirubin AST ALT Alkaline Phosphatase Creatine Kinase Troponin I B-Natriuretic Peptide Total Protein Albumin Urine Color Urine Appearance Urine pH Ur Specific [place] Urine Protein Urine Glucose (UA) Urine Ketones Urine Blood Urine Nitrite Urine Bilirubin Urine Urobilinogen Ur Leukocyte Esterase 12/08/18 12/08/18 12/08/18 06:02 06:20 06:20 WBC 7.4 RBC 4.15 Hgb 8.6 L Hct 27.7 L MCV 66.9 L MCH 20.8 L MCHC 31.0 L RDW 19.2 H Plt Count 179 MPV 8.7 Absolute Neuts (auto) 6.6 Neutrophils % 89.0 H D Lymphocytes % 4.5 L D Monocytes % 5.8 Eosinophils % 0.4 D Basophils % 0.3 Nucleated RBC % 0 Hypochromia Platelet Estimate Polychromasia Anisocytosis Microcytosis Ovalocytes PT with INR INR PTT (Actin FS) Anticoagulation Therapy Puncture Site ABG pH ABG pCO2 at Pt Temp ABG pO2 at Pt Temp ABG HCO3 ABG O2 Sat (Measured) ABG O2 Content ABG Base Excess Krishan Test VBG pH POC VBG pCO2 POC VBG pO2 VBG HCO3 VBG O2 Sat (Jayashree) VBG Base Excess Carboxyhemoglobin Methemoglobin O2 Delivery Device Oxygen Flow Rate Vent Mode Vent Rate Mechanical Rate Pressure Support Vent Sodium 138 Potassium 4.6 Chloride 99 Carbon Dioxide 32 Anion Gap 7 L BUN 19.3 H Creatinine 1.0 Est GFR (CKD-EPI)AfAm 60.76 Est GFR (CKD-EPI)NonAf 52.42 POC Glucometer 241 Random Glucose 247 H Lactic Acid Calcium 8.5 Phosphorus 4.0 Magnesium 1.9 Total Bilirubin 1.7 H AST 23 ALT 22 Alkaline Phosphatase 65 Creatine Kinase Troponin I 0.11 H B-Natriuretic Peptide Total Protein 6.8 Albumin 2.9 L Urine Color Urine Appearance Urine pH Ur Specific [place] Urine Protein Urine Glucose (UA) Urine Ketones Urine Blood Urine Nitrite Urine Bilirubin Urine Urobilinogen Ur Leukocyte Esterase 12/08/18 12/08/18 06:20 11:43 WBC RBC Hgb Hct MCV MCH MCHC RDW Plt Count MPV Absolute Neuts (auto) Neutrophils % Lymphocytes % Monocytes % Eosinophils % Basophils % Nucleated RBC % Hypochromia Platelet Estimate Polychromasia Anisocytosis Microcytosis Ovalocytes PT with INR 19.20 H INR 1.62 H PTT (Actin FS) 36.3 Anticoagulation Therapy Puncture Site ABG pH ABG pCO2 at Pt Temp ABG pO2 at Pt Temp ABG HCO3 ABG O2 Sat (Measured) ABG O2 Content ABG Base Excess Krishan Test VBG pH POC VBG pCO2 POC VBG pO2 VBG HCO3 VBG O2 Sat (Jayashree) VBG Base Excess Carboxyhemoglobin Methemoglobin O2 Delivery Device Oxygen Flow Rate Vent Mode Vent Rate Mechanical Rate Pressure Support Vent Sodium Potassium Chloride Carbon Dioxide Anion Gap BUN Creatinine Est GFR (CKD-EPI)AfAm Est GFR (CKD-EPI)NonAf POC Glucometer 211 Random Glucose Lactic Acid Calcium Phosphorus Magnesium Total Bilirubin AST ALT Alkaline Phosphatase Creatine Kinase Troponin I B-Natriuretic Peptide Total Protein Albumin Urine Color Urine Appearance Urine pH Ur Specific [place] Urine Protein Urine Glucose (UA) Urine Ketones Urine Blood Urine Nitrite Urine Bilirubin Urine Urobilinogen Ur Leukocyte Esterase Active Medications Generic Name Dose Route Start Last Admin Trade Name Freq PRN Reason Stop Dose Admin Albuterol Sulfate 1 amp 12/07/18 16:30 12/08/18 03:05 Ventolin 0.083% Nebulizer Soln - NEB 1 amp Q4H PRN Administration SHORT OF BREATH/WHEEZING Albuterol/Ipratropium 1 amp 12/07/18 17:30 12/08/18 00:40 Duoneb - NEB 1 amp Q4H PRN Administration SHORTNESS OF BREATH Apixaban 5 mg 12/07/18 22:00 12/08/18 10:13 Eliquis - PO 5 mg BID RYANN Administration Atorvastatin Calcium 40 mg 12/07/18 22:00 12/07/18 22:17 Lipitor - PO 40 mg HS RYANN Administration Cefepime HCl 2 gm/ Dextrose 100 mls @ 200 mls/hr 12/07/18 18:00 IVPB Q8H-IV RYANN Protocol Vancomycin HCl 1,000 mg in 250 mls @ 166.667 mls/hr 12/07/18 17:15 Vancomycin (Pre-Docked) IVPB Q12H RYANN Sodium Chloride 500 mls @ 42 mls/hr 12/07/18 17:32 12/07/18 20:05 Normal Saline - IV 42 mls/hr ASDIR RYANN Administration Vancomycin HCl 1,000 mg in 250 mls @ 166.667 mls/hr 12/08/18 03:00 12/08/18 03:25 Vancomycin (Pre-Docked) IVPB 12/08/18 16:29 166.667 mls/hr Q12H RYANN Administration Cefepime HCl 2 gm/ Dextrose 100 mls @ 200 mls/hr 12/08/18 02:00 12/08/18 11: 47 IVPB 12/08/18 18:29 200 mls/hr Q8H-IV RYANN Administration Protocol Insulin Aspart 1 vial 12/07/18 22:00 12/08/18 11:46 Novolog Vial Sliding Scale - SQ 4 units ACHS RYANN Administration Protocol Insulin Detemir 15 units 12/07/18 22:00 12/07/18 22:16 Levemir Vial SQ 15 units HS RYANN Administration Levothyroxine Sodium 25 mcg 12/08/18 07:00 12/08/18 06:12 Synthroid - PO 25 mcg DAILY@0700 RYANN Administration Metoprolol Succinate 25 mg 12/08/18 10:00 12/08/18 10:14 Toprol Xl - PO 25 mg DAILY RYANN Administration Pantoprazole Sodium 40 mg 12/08/18 10:00 12/08/18 10:13 Protonix - PO 40 mg DAILY RYANN Administration Prednisone 10 mg 12/08/18 10:00 12/08/18 10:14 Deltasone - PO 10 mg DAILY RYANN Administration CBC, BMP 12/08/18 06:20 12/08/18 06:20 ASSESSMENT/PLAN: 83 year old female with a significant past medical history of COPD (trilogy machine), CHF, CAD/[place]/cath, Afib (on eliquis), Afib, HTN, HLD, Type 2 DM who presents to the ED via EMS with dyspnea on exertion.was found ti have fever 101, HR 110 and RLB atelectasis admitted for HPNA . # Sepsis 2/2 PNA * dry cough , RLB atelectsis , HR 110, Fever 101 * Perales cx * Abx start Cefepim and Vanco to cover HPNA as pt recently discharged from hospital , MERE vanco , resume cefepime per ID * Pen allergy * ID consulted Dr Maximo SEVERINO vanco , resume Cefepime * hold lasix for now in term of sepsis (recieved one dose of 40 lasix over nigt due to sob ) * BIPAP as needed # CHF S/D * will hold lasix as pt in sepsis due to PNA * daily weight , I& O * CArdiology consult Dr Zapata * revaluate daily * euvolemic for now after one iV lasix over night * CXR in AM # Mild hyperkalemia , resolved * 5.2 repeat BMP at 10 pm * no EKG changes # 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 # COPD cont Duoneb, Albuterol, Prednisone 10 mg po daily , BIPAP as needed # CAD/[place]/ # AFIB on ELiquis 5 BID ,Toprol XL 25 po daily #HTN # HLD on Lipitor 40 daily # DM # HYpothyroidism: cont Synthroid # GERD : PPi 40 daily #FEN * F: NS @ 42 cc with cautions * E: Hyperkalemia monitor for now * N:low NA diabetic diet # Proph : Dvts : On Eliquis # Dispo: monitor on tele Visit type - Emergency Visit Emergency Visit: Yes ED Registration Date: 12/07/18 Care time: The patient presented to the Emergency Department on the above date and was hospitalized for further evaluation of their emergent condition. - New Patient This patient is new to me today: No - Critical Care Critical Care patient: No ATTENDING PHYSICIAN STATEMENT I saw and evaluated the patient. I reviewed the resident's note and discussed the case with the resident. I agree with the resident's findings and plan as documented. SUBJECTIVE: OBJECTIVE: ASSESSMENT AND PLAN:
--- NOTE | 2018-12-08 13:28 | PN ---
Progress Note (short form) - Note Progress Note: ID consult dictated recent admission for resp failure/shock/CT [place] extub[place] [facility] [place] showing severe presents now with worsening SOB, fever 101 cxray with congestion, ?RLL fluid/infiltrate/atelectasis agree with cefepime can d/c vancomycin elevated troponins/- per cardiology Problem List - Problems (1) HCAP (healthcare-associated pneumonia) Code(s): J18.9 - PNEUMONIA, UNSPECIFIED ORGANISM (2) CHF (congestive heart failure) Code(s): I50.9 - HEART FAILURE, UNSPECIFIED Qualifiers: Heart failure type: unspecified Heart failure chronicity: unspecified Qualified Code(s): I50.9 - Heart failure, unspecified (3) Elevated troponin Code(s): R74.8 - ABNORMAL LEVELS OF OTHER SERUM ENZYMES (4) Aortic stenosis Code(s): I35.0 - NONRHEUMATIC AORTIC (VALVE) STENOSIS (5) Penicillin allergy Code(s): Z88.0 - ALLERGY STATUS TO PENICILLIN
--- NOTE | 2018-12-08 14:20 | CONS ---
DATE OF CONSULTATION: DATE OF DICTATION: 12/08/2018 REQUESTING PHYSICIAN: Hospitalist drug coordinator: Jessica Marsh M.D. HISTORY OF PRESENT ILLNESS: This is an 83-year-old woman who was recently hospital from November 09 to November 21 at [facility]. She presented with altered mental status with respiratory failure and was in shock felt secondary to possible cardiogenic shock with a [id number] UT with elevated troponins as high as 20. She had shock liver and JOLIE and pulmonary edema. She was treated for a UTI with ceftriaxone. She was able to be successfully extubated and she was transferred to [facility] where she underwent a cardiac catheterization. Echo at [facility] showed ejection fraction of 40% and severe aortic stenosis. The left heart catheterization showed patent stents and stable coronary artery disease. She had no intervention. She was discharged home on the November 25. Over the last several days she has had progressive shortness of breath and has been getting fatigued. She has had a dry cough non-productive. She has had bilateral leg swelling. Last night she had an episode of vomiting. She currently denied chest pain or abdominal pain. She is unaware she had fever, but she had a temperature of 101 on arrival to the emergency room. She was treated overnight with vancomycin, cefepime, as well as Lasix and she is resting more comfortably now. She still has a very moist cough. PAST MEDICAL HISTORY: Her past medical history is notable for a history of COPD ; she a Trilogy machine, CHF, coronary artery disease, atrial fibrillation, aortic stenosis, hypertension, hyperlipidemia, type 2 diabetes. PAST SURGICAL HISTORY: Surgical history is notable for a hysterectomy, cataract surgery. ALLERGIES: She is allergic to PENICILLIN, BUT TOLERATES CEPHALOSPORINS. SOCIAL HISTORY: She lives at home with her family. There is no history of any cigarette or substance abuse. REVIEW OF SYSTEMS: Is notable for vomiting overnight. She denies any current abdominal pain. PHYSICAL EXAMINATION: Vitals: Her temperature was 98.1, T max was 101 in the emergency room, pulse of 99, blood pressure 111/67, respiratory rate is 22. She is on nasal cannula. HEENT: She is normocephalic. Her eyes are anicteric. Neck: Her neck is supple. Lungs: Have bilateral rhonchi. Heart: Regular rate and rhythm. Abdomen: Soft, nontender. Extremities: Have trace edema. White count is 7.4, hemoglobin 8.6, platelets are 179. BUN is 19, creatinine 1.3. Total bilirubin 1.7, otherwise normal LFTs with a troponin of 0.11. Urinalysis is negative. Legionella urine antigen has been done and is negative. Blood cultures are negative after negative after 24 hours. Urine culture is pending. Chest x-ray shows increased congestion and possible right lower lobe infiltrate. SUMMARY: In summary, this is an 83-year-old woman recently in the hospital with cardiogenic shock, respiratory failure, who is now readmitted with worsening chest congestion, non-productive cough and possible right lower lobe infiltrate and fever. SHe has hisotry of CHF and Aortic stenosis. ALso now with positive troponins. RECOMMENDATIONS: I would treat her with cefepime given her PENICILLIN ALLERGY, can hold further vancomycin. I would defer to Cardiology whether she needs diuresis at this time. Further recommendations to follow. Floyd [id number] JACKY
--- NOTE | 2018-12-08 16:56 | PN ---
Teaching Attending Note Name of Resident: David Webster ATTENDING PHYSICIAN STATEMENT I saw and evaluated the patient. I reviewed the resident's note and discussed the case with the resident. I agree with the resident's findings and plan as documented. SUBJECTIVE: Mrs Kolby Sharp says she is feeling a little better today. Some shortness of breath and coughing. No cp or n/v. OBJECTIVE: Last Vital Signs Temp Pulse Resp BP Pulse Ox 36.9 C 74 18 125/63 100 12/08/18 14:10 12/08/18 14:10 12/08/18 14:10 12/08/18 14:10 12/08/18 07:06 Gen: nad, obese Pulm: [place] sajanandriy CV: rrr w/o m/r/g Abd: +bs, s/nt/nd Ext: 2+ BLE edema CBC, BMP 12/08/18 06:20 12/08/18 06:20 ASSESSMENT AND PLAN: -appreciate ID assistance -continue cefepime, vanc discontinued -placed on bipap at night -case d/w cardiology, euvolemic -received IV lasix overnight, will hold further diuretic -continue gentle hydration -continue steroids -continue current management Problem List - Problems (1) HCAP (healthcare-associated pneumonia) Code(s): J18.9 - PNEUMONIA, UNSPECIFIED ORGANISM (2) Sepsis Code(s): A41.9 - SEPSIS, UNSPECIFIED ORGANISM (3) Hyperkalemia Code(s): E87.5 - HYPERKALEMIA (4) Diabetes Code(s): E11.9 - TYPE 2 DIABETES MELLITUS WITHOUT COMPLICATIONS Qualifiers: Diabetes mellitus type: type 2 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 Diabetes mellitus complication status: with hyperglycemia Qualified Code(s): E11.65 - Type 2 diabetes mellitus with hyperglycemia; 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 transplanted heart: [place] heart Associated angina: without angina Qualified Code(s): I25.10 - Atherosclerotic heart disease of [place] coronary artery without angina pectoris (9) CHF exacerbation Code(s): I50.9 - HEART FAILURE, UNSPECIFIED Qualifiers: Heart failure type: unspecified Qualified Code(s): I50.9 - Heart failure, unspecified (10) COPD (chronic obstructive pulmonary disease) Code(s): J44.9 - CHRONIC OBSTRUCTIVE PULMONARY DISEASE, UNSPECIFIED Qualifiers: COPD type: unspecified COPD Qualified Code(s): J44.9 - Chronic obstructive pulmonary disease, unspecified (11) HTN (hypertension) Code(s): I10 - ESSENTIAL (PRIMARY) HYPERTENSION Qualifiers: Hypertension type: essential hypertension Qualified Code(s): I10 - Essential (primary) hypertension (12) Hyperlipidemia Code(s): E78.5 - HYPERLIPIDEMIA, UNSPECIFIED Qualifiers: Hyperlipidemia type: pure hypercholesterolemia Qualified Code(s): E78.00 - Pure hypercholesterolemia, unspecified; E78.0 - Pure hypercholesterolemia (13) Obesity (BMI 30-39.9) Code(s): E66.9 - OBESITY, UNSPECIFIED
[2018-12-08] MEDS: SODIUM CHLORIDE 500 ML IV SCH (18:05)
[2018-12-08] MEDS ORDERED: CEFEPIME HCL 1 GM VIAL (RESTRICTED TO ID) ONE (18:07)
[2018-12-08] MEDS: CEFEPIME 1 GM in DEXTROSE 5%-WATER - 50 ML IVPB SCH (18:08)
[2018-12-08] MEDS ORDERED: DEXTROSE 5%-WATER - 50 ML IVPB ONE (18:09)
[2018-12-08] MEDS: ATORVASTATIN CA 40 MG TABLET (FP) PO SCH (21:36)
[2018-12-08] MEDS: INSULIN (LEVEMIR) 100 UNITS/ML UNITS SQ SCH (22:00)
[2018-12-09] MEDS ORDERED: CEFEPIME HCL 1 GM VIAL (RESTRICTED TO ID) ONE ×3 (03:11→18:56)
[2018-12-09] MEDS ORDERED: DEXTROSE 5%-WATER - 50 ML IVPB ONE ×3 (03:12→18:57)
[2018-12-09] MEDS: CEFEPIME 1 GM in DEXTROSE 5%-WATER - 50 ML IVPB SCH ×3 (03:19→19:03)
[2018-12-09] MEDS: INSULIN SLIDING SCALE (NOVOLOG) 1 VIAL SQ SCH ×4 (06:48→21:44)
[2018-12-09] MEDS: LEVOTHYROXINE NA 25 MCG TABLET (FP) PO SCH (06:48)
[2018-12-09 07:31] LABS: BASO % 0.4 % (0-2.0); EOS % 3.6 % (0-4.5); HEMATOCRIT 27.3 % (32.4-45.2); HEMOGLOBIN 8.4 GM/dL (10.7-15.3); LYMPH % 18.7 % (8-40); MCH 20.8 pg (25.7-33.7); MCHC 30.8 g/dl (32.0-36.0); MEAN CELL VOLUME 67.5 fl (80-96); MEAN PLT VOLUME 8.7 fl (7.5-11.1); NEUT % 71.3 % (42.8-82.8); PLATELET COUNT 158 K/MM3 (134-434); RBC 4.05 M/mm3 (3.60-5.2); RDW 19.8 % (11.6-15.6); WHITE BLOOD COUNT 4.6 K/mm3 (4.0-10.0)
--- NOTE | 2018-12-09 07:43 | PN ---
Physical Exam: SUBJECTIVE: Patient seen and examined still same no cp but a lot of dry cough , used BIPAP over night no abdominal pain no fever or chills. OBJECTIVE: Vital Signs Period Temp Pulse Resp BP Sys/Gardner Pulse Ox Last 24 Hr 97.5 F-98.4 F 66-75 18-20 116-141/56-75 96-98 GENERAL: AAOx3 in NAD HEAD: NC/AT EYES: EOMI, Conjunctiva clear, sclera anicteric ENT: moist mucous membrane NECK: Supple, no JVD LUNGS:decrease breath sounds at the bases , bibasilar rales HEART: AFIB, normal s1, s2, murmur no M/R/G ABDOMEN: Obese Soft, ND, NT, +BS 4 Q, no CVA Tenderness, toscano in place LOWER EXTREMITIES: trace edema, +2DP pulse, NEUROLOGICAL: No focal deficit. Normal speech. gait not observed. PSYCHIATRIC: Cooperative. Good eye contact. Appropriate mood and affect. SKIN: Warm, dry, Laboratory Results - last 24 hr 12/08/18 12/08/18 12/08/18 11:43 17:33 21:40 WBC RBC Hgb Hct MCV MCH MCHC RDW Plt Count MPV Absolute Neuts (auto) Neutrophils % Lymphocytes % Monocytes % Eosinophils % Basophils % Nucleated RBC % POC Glucometer 211 243 297 12/09/18 12/09/18 06:22 06:35 WBC 4.6 RBC 4.05 Hgb 8.4 L Hct 27.3 L MCV 67.5 L MCH 20.8 L MCHC 30.8 L RDW 19.8 H Plt Count 158 MPV 8.7 Absolute Neuts (auto) 3.3 Neutrophils % 71.3 Lymphocytes % 18.7 D Monocytes % 6.0 Eosinophils % 3.6 D Basophils % 0.4 Nucleated RBC % 0 POC Glucometer 195 Active Medications Generic Name Dose Route Start Last Admin Trade Name Freq PRN Reason Stop Dose Admin Albuterol Sulfate 1 amp 12/07/18 16:30 12/08/18 03:05 Ventolin 0.083% Nebulizer Soln - NEB 1 amp Q4H PRN Administration SHORT OF BREATH/WHEEZING Albuterol/Ipratropium 1 amp 12/07/18 17:30 12/08/18 20:45 Duoneb - NEB 1 amp Q4H PRN Administration SHORTNESS OF BREATH Apixaban 5 mg 12/07/18 22:00 12/08/18 21:37 Eliquis - PO 5 mg BID RYANN Administration Atorvastatin Calcium 40 mg 12/07/18 22:00 12/08/18 21:36 Lipitor - PO 40 mg HS RYANN Administration Sodium Chloride 500 mls @ 42 mls/hr 12/07/18 17:32 12/08/18 18:05 Normal Saline - IV 42 mls/hr ASDIR RYANN Administration Cefepime HCl 1 gm/ Dextrose 50 mls @ 100 mls/hr 12/08/18 18:00 12/09/18 03:19 IVPB 100 mls/hr Q8H-IV RYANN Administration Protocol Insulin Aspart 1 vial 12/07/18 22:00 12/09/18 06:48 Novolog Vial Sliding Scale - SQ 2 units ACHS RYANN Administration Protocol Insulin Detemir 20 units 12/08/18 13:07 12/08/18 22:00 Levemir Vial SQ 20 units HS RYANN Administration Levothyroxine Sodium 25 mcg 12/08/18 07:00 12/09/18 06:48 Synthroid - PO 25 mcg DAILY@0700 RYANN Administration Metoprolol Succinate 25 mg 12/08/18 10:00 12/08/18 10:14 Toprol Xl - PO 25 mg DAILY RYANN Administration Pantoprazole Sodium 40 mg 12/08/18 10:00 12/08/18 10:13 Protonix - PO 40 mg DAILY RYANN Administration Prednisone 10 mg 12/08/18 10:00 12/08/18 10:14 Deltasone - PO 10 mg DAILY RYANN Administration CBC, BMP 12/09/18 06:35 12/09/18 06:35 ASSESSMENT/PLAN: 83 year old female with a significant past medical history of COPD (trilogy machine), CHF, CAD/[place]/cath, Afib (on eliquis), Afib, HTN, HLD, Type 2 DM who presents to the ED via EMS with dyspnea on exertion.was found ti have fever 101, HR 110 and RLB atelectasis admitted for HPNA . 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 # COPD cont Duoneb, Albuterol, Prednisone 10 mg po daily , BIPAP as needed # CAD/CA/ # AFIB on ELiquis 5 BID ,Toprol XL 25 po daily #HTN # HLD on Lipitor 40 daily # DM # HYpothyroidism: cont Synthroid # GERD : PPi 40 daily #FEN * F: DC fluids * E: Hyperkalemia monitor for now * N:low NA diabetic diet # Proph : Dvts : On Eliquis # Dispo: monitor on tele Visit type - Emergency Visit Emergency Visit: Yes ED Registration Date: 12/07/18 Care time: The patient presented to the Emergency Department on the above date and was hospitalized for further evaluation of their emergent condition. - New Patient This patient is new to me today: No - Critical Care Critical Care patient: No ATTENDING PHYSICIAN STATEMENT I saw and evaluated the patient. I reviewed the resident's note and discussed the case with the resident. I agree with the resident's findings and plan as documented. SUBJECTIVE: OBJECTIVE: ASSESSMENT AND PLAN:
[2018-12-09 07:57] LABS: ALBUMIN 2.8 g/dl (3.4-5.0); CALCIUM 8.9 mg/dL (8.5-10.1); POTASSIUM 5.3 mmol/L (3.5-5.1); TOT PROT 6.9 g/dl (6.4-8.2)
[2018-12-09] MEDS ORDERED: PT OWN MED DRAWER 7, Y5N ONE (10:40)
[2018-12-09] MEDS ORDERED: CALCIUM GLUCONATE 10% - 1,000 MG/10 ML VIAL IVPUSH ONE (10:45)
[2018-12-09] MEDS ORDERED: SODIUM POLYSTYRENE SULFONATE 15 GM/60 ML BOTTLE PO ONE (10:45)
[2018-12-09] MEDS: metoPROLOL SUCCINATE 25 MG TAB.SR.24H (FP) PO SCH (10:49)
[2018-12-09] MEDS: predniSONE 10 MG TABLET (UD) PO SCH (10:49)
[2018-12-09] MEDS: PANTOPRAZOLE 40 MG TABLET (FP) PO SCH (10:49)
[2018-12-09] MEDS: APIXABAN 5 MG TABLET PO SCH ×2 (10:49→21:44)
--- NOTE | 2018-12-09 11:12 | PN ---
Progress Note (short form) - Note Progress Note: no chest pain, palps, dizziness. complains of shortness of breath Vital Signs Period Temp Pulse Resp BP Sys/Gardner Pulse Ox Last 24 Hr 97.5 F-98.4 F 66-75 18-20 116-141/56-75 98-100 Constitutional: Yes: Well Nourished, No Distress Eyes: No: Sclera Icterus HENT: No: Nasal Congestion Neck: No: Decreased ROM Respiratory: Yes: CTA Bilaterally. +rales at bases bilaterally Gastrointestinal: Yes: Normal Bowel Sounds. No: Distention, Hepatomegaly, Palpable Mass, Tenderness Cardiovascular: Yes: Regular Rate and Rhythm JVD: No Carotid Bruit: No PMI: Non-Displaced Heart Sounds: Yes: S1, S2. No: Gallop Edema: No Peripheral Pulses: 2+ Left Carotid, 2+ Right Carotid, 2+ Left Doralis Pedis, 2+ Right Dorsalis Pedis Integumentary: No: Jaundice Neurological: No: Alert, Oriented Psychiatric: No: Agitated Assessment/Plan cath 07/2018: lm 50, mlad 80 (isr), d1 90, lcx 90, mrca 70 cath 11/22/18 LVEDP 28 mmHg (post nitro 20 mmHg). Mid TVE57-23% lesion; D1 ostial 70% lesion; mLAD and D1 stents are patent; ostial LCx 80-90% calcified lesion. No new significant lesion compared to the coronary angiogram done on 11/19/13. LVEF:40% [place] [facility] [place] mod LV dilation, moderately dec LV function EF 40%, hypokinesis of apical septum and apex, no thrombus with contrastr used, nl RV, severe peak V 2.5 m/s, peak/mean gradient 25/15 mmHg, USHA 0.69 cm2, DI 0.23, mild AR, mild MR CXR: +congestive changes tele: sinus A/P: 83 yr old lady with known CAD/pci, chf, HTN, HPL, DM, pad, obesity, pafib (dx 05/2017 when admitted for copd) here with shortness of breaty PNA, sepsis - manage per primary, ID elevated trop - flat trend, indeterminate range, no ischemic changes - likely demand in setting of infection CAD - s/p cath [place] [facility] [place] - stable CAD, no intervention - cont toprol, lipitor, eliquis chronic systolic HF - EF 40% on most recent echo at [facility] [place] - cont metoprolol - mild congestion on CXR in ER -received IV lasix 12/08, felt better. today more short of breath with rubi rales on exam - start lasix 40 mg IV daily - monitor daily weights, Cr, lytes afib - sinus here - cont eliquis, toprol HLD - cont statin DM - manage per primary hypothyroidism - manage per primary COPD - manage per primary HTN - cont home meds - severe on echo [place] [facility] [place] outpatient follow up
--- NOTE | 2018-12-09 12:12 | EKG ---
Test Reason : Blood Pressure : / mmHG Vent. Rate : 072 BPM Atrial Rate : 072 BPM P-R Int : 216 ms QRS Dur : 126 ms QT Int : 472 ms P-R-T Axes : 073 -63 012 degrees QTc Int : 516 ms SINUS RHYTHM WITH 1ST DEGREE A-V BLOCK LEFT AXIS DEVIATION RIGHT BUNDLE BRANCH BLOCK ABNORMAL ECG WHEN COMPARED WITH ECG OF 07-DEC-2018 17:44, SINUS RHYTHM HAS REPLACED ATRIAL FLUTTER RIGHT BUNDLE BRANCH BLOCK HAS REPLACED RSR' PATTERN IN V1 CRITERIA FOR ANTERIOR INFARCT ARE NO LONGER PRESENT CRITERIA FOR ANTEROLATERAL INFARCT ARE NO LONGER PRESENT CRITERIA FOR INFERIOR INFARCT ARE NO LONGER PRESENT Confirmed by BREONNA PETTIT, JOE ([id number]) on 12/09/2018 12:11:58 PM Referred By: / Confirmed By:JOE RAVI MD
[2018-12-09] MEDS: FUROSEMIDE 40 MG/4 ML INJECTABLE VIAL IVPUSH SCH (12:51)
--- NOTE | 2018-12-09 14:46 | PN ---
Progress Note (short form) - Note Progress Note: looks well NAD c/o right flank pain Vital Signs Period Temp Pulse Resp BP Sys/Gardner Pulse Ox Last 24 Hr 97.5 F-98.2 F 66-75 18-20 116-141/56-75 98-100 cor-rrr lungs decreased bs right base abd soft,nt ext no edema CBC, BMP 12/09/18 06:35 12/09/18 06:35 Microbiology 12/07/18 12:15 Blood - Peripheral Venous Blood Culture - Preliminary NO GROWTH OBTAINED AFTER 48 HOURS, INCUBATION TO CONTINUE FOR 3 DAYS. 12/07/18 12:40 Blood - Peripheral Venous Blood Culture - Preliminary NO GROWTH OBTAINED AFTER 48 HOURS, INCUBATION TO CONTINUE FOR 3 DAYS. 12/07/18 12:50 Urine - Urine - Catheterized Urine Culture - Final NO GROWTH OBTAINED 12/07/18 17:37 Urine For Antigen Detection Legionella Antigen - Final 12/07/18 17:37 Urine For Antigen Detection Streptococcus pneumoniae Antigen (M - Final a/p RLL pneumonia- suspect referred pain due to RLL process agree with cefepime repeat cxray- ?effusion elevated troponins/- per cardiology
--- NOTE | 2018-12-09 16:26 | PN ---
Teaching Attending Note Name of Resident: David Webster ATTENDING PHYSICIAN STATEMENT I saw and evaluated the patient. I reviewed the resident's note and discussed the case with the resident. I agree with the resident's findings and plan as documented with exceptions below. SUBJECTIVE: Patient seen and examined, breathing improved, no complaints. OBJECTIVE: Vital Signs Period Temp Pulse Resp BP Sys/Gardner Pulse Ox Last 24 Hr 97.5 F-98.6 F 66-75 18-20 116-141/49-75 98-100 Intake & Output 12/06/18 12/07/18 12/08/18 12/09/18 23:59 23:59 23:59 23:59 Intake Total 1020 1200 650 Output Total 1000 Balance 20 1200 650 Weight 210 lb General: sitting in bed in no acute distress CVS:S1S2 irregular Chest: scattered expiratory wheezing with basilar rales Abdomen: soft, obese, NT Extremities: 1+ pedal edema Home Medications Medication Instructions Recorded Insulin Lispro [Humalog] 0 unit SQ TIDCM PRN 03/02/14 Apixaban [Eliquis -] 5 mg PO BID #60 tablet 06/09/17 Insulin (Levemir) [Levemir Vial] 15 unit SQ HS 07/16/17 Furosemide [Lasix] 40 mg PO DAILY #30 tablet 07/20/17 Levothyroxine [Synthroid -] 25 mcg PO DAILY 10/27/17 Atorvastatin Ca [Lipitor] 40 mg PO HS #30 tablet 11/04/17 Pantoprazole Sodium [Protonix -] 40 mg PO DAILY #30 tablet.ec 11/04/17 Metoprolol Succinate [Toprol XL -] 25 mg PO DAILY 10/21/18 Albuterol 0.083% Nebulizer Nel 1 amp NEB Q4H PRN 90 Days #6 box 10/28/18 [Ventolin 0.083% Nebulizer Soln -] Nebulizer and Compressor [Portable 1 each MC BID #1 each 10/28/18 Nebulizer System] Prednisone 10 mg PO DAILY 11/20/18 Active Medications Albuterol Sulfate (Ventolin 0.083% Nebulizer Soln -) 1 amp NEB Q4H PRN PRN Reason: SHORT OF BREATH/WHEEZING Last Admin: 12/08/18 03:05 Dose: 1 amp Albuterol/Ipratropium (Duoneb -) 1 amp NEB Q4H PRN PRN Reason: SHORTNESS OF BREATH Last Admin: 12/08/18 20:45 Dose: 1 amp Apixaban (Eliquis -) 5 mg PO BID [facility] Last Admin: 12/09/18 10:49 Dose: 5 mg Atorvastatin Calcium (Lipitor -) 40 mg PO HS [facility] Last Admin: 12/08/18 21:36 Dose: 40 mg Furosemide (Lasix Injection -) 40 mg IVPUSH DAILY [facility] Last Admin: 12/09/18 12:51 Dose: 40 mg Sodium Chloride (Normal Saline -) 500 mls @ 42 mls/hr IV ASDIR [facility] Last Admin: 12/08/18 18:05 Dose: 42 mls/hr Cefepime HCl 1 gm/ Dextrose 50 mls @ 100 mls/hr IVPB Q8H-IV [facility]; Protocol Last Admin: 12/09/18 10:48 Dose: 100 mls/hr Insulin Aspart (Novolog Vial Sliding Scale -) 1 vial SQ ACHS [facility]; Protocol Last Admin: 12/09/18 12:54 Dose: 6 units Insulin Detemir (Levemir Vial) 20 units SQ [facility] Last Admin: 12/08/18 22:00 Dose: 20 units Levothyroxine Sodium (Synthroid -) 25 mcg PO DAILY@0700 [facility] Last Admin: 12/09/18 06:48 Dose: 25 mcg Metoprolol Succinate (Toprol Xl -) 25 mg PO DAILY [facility] Last Admin: 12/09/18 10:49 Dose: 25 mg Pantoprazole Sodium (Protonix -) 40 mg PO DAILY [facility] Last Admin: 12/09/18 10:49 Dose: 40 mg Prednisone (Deltasone -) 10 mg PO DAILY [facility] Last Admin: 12/09/18 10:49 Dose: 10 mg Laboratory Results - last 24 hr 12/08/18 12/08/18 12/09/18 17:33 21:40 06:22 WBC RBC Hgb Hct MCV MCH MCHC RDW Plt Count MPV Absolute Neuts (auto) Neutrophils % Lymphocytes % Monocytes % Eosinophils % Basophils % Nucleated RBC % Sodium Potassium Chloride Carbon Dioxide Anion Gap BUN Creatinine Est GFR (CKD-EPI)AfAm Est GFR (CKD-EPI)NonAf POC Glucometer 243 297 195 Random Glucose Calcium Total Bilirubin AST ALT Alkaline Phosphatase Troponin I Total Protein Albumin 12/09/18 12/09/18 12/09/18 06:35 06:35 11:44 WBC 4.6 RBC 4.05 Hgb 8.4 L Hct 27.3 L MCV 67.5 L MCH 20.8 L MCHC 30.8 L RDW 19.8 H Plt Count 158 MPV 8.7 Absolute Neuts (auto) 3.3 Neutrophils % 71.3 Lymphocytes % 18.7 D Monocytes % 6.0 Eosinophils % 3.6 D Basophils % 0.4 Nucleated RBC % 0 Sodium 136 Potassium 5.3 H Chloride 98 Carbon Dioxide 35 H Anion Gap 3 L BUN 21.0 H Creatinine 1.0 Est GFR (CKD-EPI)AfAm 60.76 Est GFR (CKD-EPI)NonAf 52.42 POC Glucometer 258 Random Glucose 190 H Calcium 8.9 Total Bilirubin 2.0 H AST 27 ALT 23 Alkaline Phosphatase 72 Troponin I 0.27 H Total Protein 6.9 Albumin 2.8 L 12/09/18 12:45 WBC RBC Hgb Hct MCV MCH MCHC RDW Plt Count MPV Absolute Neuts (auto) Neutrophils % Lymphocytes % Monocytes % Eosinophils % Basophils % Nucleated RBC % Sodium Potassium Chloride Carbon Dioxide Anion Gap BUN Creatinine Est GFR (CKD-EPI)AfAm Est GFR (CKD-EPI)NonAf POC Glucometer Random Glucose Calcium Total Bilirubin AST ALT Alkaline Phosphatase Troponin I 0.26 H Total Protein Albumin Microbiology 12/07/18 12:15 Blood - Peripheral Venous Blood Culture - Preliminary NO GROWTH OBTAINED AFTER 48 HOURS, INCUBATION TO CONTINUE FOR 3 DAYS. 12/07/18 12:40 Blood - Peripheral Venous Blood Culture - Preliminary NO GROWTH OBTAINED AFTER 48 HOURS, INCUBATION TO CONTINUE FOR 3 DAYS. 12/07/18 12:50 Urine - Urine - Catheterized Urine Culture - Final NO GROWTH OBTAINED 12/07/18 17:37 Urine For Antigen Detection Legionella Antigen - Final 12/07/18 17:37 Urine For Antigen Detection Streptococcus pneumoniae Antigen (M - Final ASSESSMENT AND PLAN: 83 yof with PMHx of COPD (on trilogy), CAD, chronic systolic heart failure, Afib on eliquis, HTN, HLD, type II DM, recurrent recent admissions with COPD/ CHF in 09/2018, then cardiogenic shock/WI/CHF, transferred to [facility] [place] s/p Cath with non obstructive CAD/severe , admitted with dyspnea, dry cough. -Acute hypoxic/hypercapneic respiratory failure -Acute RLL HCAP (r/o gm neg PNA) with sepsis -Acute on chronic systolic heart failure exacerbation -Severe -Afib on eliquis -HTN -HLD -Type II DM Plan: Looks volume overloaded, repeat CXR, cardiology input noted, started lasix 40 mg IV daily, monitor volume status. D/c IVF. ID input noted. Cefepime. Blood cx neg so far. Urine PNA studies neg. Prednisone 10 mg daily from recent taper. Bipap prn. Continue eliquis/metoprolol/statin DVTPPX on eliquis patient with recurrent hospital admissions, known severe . palliative care input to address overall goals of care Discussed with nursing and CM.
[2018-12-09] MEDS: ALBUTEROL SO4 2.5/IPRATROPIUM 0.5 INH SOL 3 ML VIAL.NEB. NEB PRN (21:08)
[2018-12-09] MEDS: INSULIN (LEVEMIR) 100 UNITS/ML UNITS SQ SCH (21:44)
[2018-12-09] MEDS: ATORVASTATIN CA 40 MG TABLET (FP) PO SCH (21:44)
[2018-12-10] MEDS ORDERED: CEFEPIME HCL 1 GM VIAL (RESTRICTED TO ID) ONE ×3 (01:49→17:54)
[2018-12-10] MEDS ORDERED: DEXTROSE 5%-WATER - 50 ML IVPB ONE ×3 (01:49→17:54)
[2018-12-10] MEDS: CEFEPIME 1 GM in DEXTROSE 5%-WATER - 50 ML IVPB SCH ×3 (01:58→17:55)
[2018-12-10] MEDS: INSULIN SLIDING SCALE (NOVOLOG) 1 VIAL SQ SCH ×4 (07:02→22:12)
[2018-12-10] MEDS: LEVOTHYROXINE NA 25 MCG TABLET (FP) PO SCH (07:02)
[2018-12-10 07:16] LABS: BASO % 0.4 % (0-2.0); EOS % 4.1 % (0-4.5); HEMATOCRIT 26.1 % (32.4-45.2); HEMOGLOBIN 8.1 GM/dL (10.7-15.3); LYMPH % 17.3 % (8-40); MCH 20.9 pg (25.7-33.7); MEAN CELL VOLUME 67.4 fl (80-96); MEAN PLT VOLUME 9.1 fl (7.5-11.1); MONO % 6.8 % (3.8-10.2); NEUT % 71.4 % (42.8-82.8); PLATELET COUNT 161 K/MM3 (134-434); RBC 3.87 M/mm3 (3.60-5.2); RDW 19.7 % (11.6-15.6); WHITE BLOOD COUNT 4.6 K/mm3 (4.0-10.0)
[2018-12-10 07:39] LABS: ALBUMIN 2.7 g/dl (3.4-5.0); BILIRUBIN,TOTAL 1.6 mg/dL (0.2-1); BLOOD UREA NITROGEN 19.6 mg/dL (7-18); CALCIUM 8.8 mg/dL (8.5-10.1); CREATININE 0.8 mg/dL (0.55-1.3); POTASSIUM 4.5 mmol/L (3.5-5.1); TOT PROT 6.6 g/dl (6.4-8.2)
--- NOTE | 2018-12-10 07:43 | PN ---
Physical Exam: SUBJECTIVE: Patient seen and examined feeling much better , used BIPAP over night ribpain on the right no BM for 2 days. OBJECTIVE: Vital Signs Period Temp Pulse Resp BP Sys/Gardner Pulse Ox Last 24 Hr 98.2 F-98.6 F 72-86 18-20 117-150/49-68 98-100 GENERAL: AAOx3 in NAD , obese lady HEAD: NC/AT EYES: EOMI, Conjunctiva clear, sclera anicteric ENT: moist mucous membrane NECK: Supple, no JVD LUNGS:decrease breath sounds at the bases , bibasilar rales HEART: AFIB, normal s1, s2, murmur no M/R/G ABDOMEN: Obese Soft, ND, NT, +BS 4 Q, no CVA Tenderness, toscano in place LOWER EXTREMITIES: trace edema, +2DP pulse, NEUROLOGICAL: No focal deficit. Normal speech. gait not observed. PSYCHIATRIC: Cooperative. Good eye contact. Appropriate mood and affect. SKIN: Warm, dry, Laboratory Results - last 24 hr 12/09/18 12/09/18 12/09/18 06:35 11:44 12:45 Sodium 136 Potassium 5.3 H Chloride 98 Carbon Dioxide 35 H Anion Gap 3 L BUN 21.0 H Creatinine 1.0 Est GFR (CKD-EPI)AfAm 60.76 Est GFR (CKD-EPI)NonAf 52.42 POC Glucometer 258 Random Glucose 190 H Calcium 8.9 Total Bilirubin 2.0 H AST 27 ALT 23 Alkaline Phosphatase 72 Troponin I 0.27 H 0.26 H Total Protein 6.9 Albumin 2.8 L 12/09/18 12/09/18 12/10/18 17:24 21:42 05:32 Sodium 140 Potassium 4.5 Chloride 98 Carbon Dioxide 38 H Anion Gap 4 L BUN 19.6 H Creatinine 0.8 Est GFR (CKD-EPI)AfAm 79.57 Est GFR (CKD-EPI)NonAf 68.66 POC Glucometer 253 229 Random Glucose 134 H Calcium 8.8 Total Bilirubin 1.6 H AST 24 ALT 22 Alkaline Phosphatase 67 Troponin I Total Protein 6.6 Albumin 2.7 L 12/10/18 05:55 Sodium Potassium Chloride Carbon Dioxide Anion Gap BUN Creatinine Est GFR (CKD-EPI)AfAm Est GFR (CKD-EPI)NonAf POC Glucometer 130 Random Glucose Calcium Total Bilirubin AST ALT Alkaline Phosphatase Troponin I Total Protein Albumin Active Medications Generic Name Dose Route Start Last Admin Trade Name Freq PRN Reason Stop Dose Admin Albuterol Sulfate 1 amp 12/07/18 16:30 12/08/18 03:05 Ventolin 0.083% Nebulizer Soln - NEB 1 amp Q4H PRN Administration SHORT OF BREATH/WHEEZING Albuterol/Ipratropium 1 amp 12/07/18 17:30 12/09/18 21:08 Duoneb - NEB 1 amp Q4H PRN Administration SHORTNESS OF BREATH Apixaban 5 mg 12/07/18 22:00 12/09/18 21:44 Eliquis - PO 5 mg BID RYANN Administration Atorvastatin Calcium 40 mg 12/07/18 22:00 12/09/18 21:44 Lipitor - PO 40 mg HS RYANN Administration Furosemide 40 mg 12/09/18 11:15 12/09/18 12:51 Lasix Injection - IVPUSH 40 mg DAILY RYANN Administration Cefepime HCl 1 gm/ Dextrose 50 mls @ 100 mls/hr 12/08/18 18:00 12/10/18 01:58 IVPB 100 mls/hr Q8H-IV RYANN Administration Protocol Insulin Aspart 1 vial 12/07/18 22:00 12/10/18 07:02 Novolog Vial Sliding Scale - SQ Not Given ACHS COUNT INCLUDES [facility] Protocol Insulin Detemir 20 units 12/08/18 13:07 12/09/18 21:44 Levemir Vial SQ 20 units HS RYANN Administration Levothyroxine Sodium 25 mcg 12/08/18 07:00 12/10/18 07:02 Synthroid - PO 25 mcg DAILY@0700 RYANN Administration Metoprolol Succinate 25 mg 12/08/18 10:00 12/09/18 10:49 Toprol Xl - PO 25 mg DAILY RYANN Administration Pantoprazole Sodium 40 mg 12/08/18 10:00 12/09/18 10:49 Protonix - PO 40 mg DAILY [facility]ANN Administration Prednisone 10 mg 12/08/18 10:00 12/09/18 10:49 Deltasone - PO 10 mg DAILY RYANN Administration CBC, BMP 12/10/18 05:32 12/10/18 05:32 ASSESSMENT/PLAN: 83 year old female with a significant past medical history of COPD (trilogy machine), CHF, CAD/AL/cath, Afib (on eliquis), Afib, HTN, HLD, Type 2 DM who presents to the ED via EMS with dyspnea on exertion.was found ti have fever 101, HR 110 and RLB atelectasis admitted for HPNA . 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 # COPD cont Duoneb, Albuterol, Prednisone 10 mg po daily , BIPAP as needed # CAD/AL/ # AFIB on ELiquis 5 BID ,Toprol XL 25 po daily #HTN # HLD on Lipitor 40 daily # DM # HYpothyroidism: cont Synthroid # GERD : PPi 40 daily #FEN F: DC fluids E: monitor lytes N:low NA diabetic diet # Proph : Dvts : On Eliquis # Dispo: monitor on tele PT evaluation Visit type - Emergency Visit Emergency Visit: Yes ED Registration Date: 12/07/18 Care time: The patient presented to the Emergency Department on the above date and was hospitalized for further evaluation of their emergent condition. - New Patient This patient is new to me today: No - Critical Care Critical Care patient: No - Discharge Referral Referred to [facility] Med P.C.: No ATTENDING PHYSICIAN STATEMENT I saw and evaluated the patient. I reviewed the resident's note and discussed the case with the resident. I agree with the resident's findings and plan as documented. SUBJECTIVE: OBJECTIVE: ASSESSMENT AND PLAN:
[2018-12-10] MEDS: ALBUTEROL SO4 2.5/IPRATROPIUM 0.5 INH SOL 3 ML VIAL.NEB. NEB PRN (07:45)
--- NOTE | 2018-12-10 08:55 | PN ---
Progress Note, Physician Chief Complaint: seen and examined, no acute distress Denies CP or SOB tele: NSR, PVCs. History of Present Illness: weight up 213 - Current Medication List Current Medications: Active Medications Albuterol Sulfate (Ventolin 0.083% Nebulizer Soln -) 1 amp NEB Q4H PRN PRN Reason: SHORT OF BREATH/WHEEZING Last Admin: 12/08/18 03:05 Dose: 1 amp Albuterol/Ipratropium (Duoneb -) 1 amp NEB Q4H PRN PRN Reason: SHORTNESS OF BREATH Last Admin: 12/10/18 07:45 Dose: 1 amp Apixaban (Eliquis -) 5 mg PO BID [facility] Last Admin: 12/09/18 21:44 Dose: 5 mg Atorvastatin Calcium (Lipitor -) 40 mg PO HS [facility] Last Admin: 12/09/18 21:44 Dose: 40 mg Docusate Sodium (Colace -) 100 mg PO TID RYANN Furosemide (Lasix Injection -) 40 mg IVPUSH DAILY [facility] Last Admin: 12/09/18 12:51 Dose: 40 mg Cefepime HCl 1 gm/ Dextrose 50 mls @ 100 mls/hr IVPB Q8H-IV [facility]; Protocol Last Admin: 12/10/18 01:58 Dose: 100 mls/hr Insulin Aspart (Novolog Vial Sliding Scale -) 1 vial SQ ACHS [facility]; Protocol Last Admin: 12/10/18 07:02 Dose: Not Given Insulin Detemir (Levemir Vial) 20 units SQ HS [facility] Last Admin: 12/09/18 21:44 Dose: 20 units Levothyroxine Sodium (Synthroid -) 25 mcg PO DAILY@0700 [facility] Last Admin: 12/10/18 07:02 Dose: 25 mcg Metoprolol Succinate (Toprol Xl -) 25 mg PO DAILY [facility] Last Admin: 12/09/18 10:49 Dose: 25 mg Pantoprazole Sodium (Protonix -) 40 mg PO DAILY [facility] Last Admin: 12/09/18 10:49 Dose: 40 mg Polyethylene Glycol (Miralax (For Daily Use) -) 17 gm PO BID [facility] Prednisone (Deltasone -) 10 mg PO DAILY [facility] Last Admin: 12/09/18 10:49 Dose: 10 mg Senna (Senna -) 2 tab PO HS PRN PRN Reason: CONSTIPATION - Objective Vital Signs: Vital Signs Temperature 98.2 F 12/10/18 05:00 Pulse Rate 74 12/10/18 05:00 Respiratory Rate 20 12/10/18 05:00 Blood Pressure 138/68 12/10/18 05:00 O2 Sat by Pulse Oximetry (%) 100 12/10/18 07:45 Constitutional: Yes: Calm Cardiovascular: Yes: JVD Respiratory: Yes: Other (decreased breath sounds bases) Gastrointestinal: Yes: Soft, Abdomen, Obese Edema: No Neurological: Yes: Alert, Oriented Labs: CBC, BMP 12/10/18 05:32 12/10/18 05:32 INR, PTT INR 1.62 (0.83-1.09) H 12/08/18 06:20 - ....Imaging EKG: Image Reviewed Assessment/Plan DATA: cath 07/2018: lm 50, mlad 80 (isr), d1 90, lcx 90, mrca 70 cath 11/22/18 LVEDP 28 mmHg (post nitro 20 mmHg). Mid VHM81-33% lesion; D1 ostial 70% lesion; mLAD and D1 stents are patent; ostial LCx 80-90% calcified lesion. No new significant lesion compared to the coronary angiogram done on 11/19/13. LVEF:40% echo 11/21/18 [facility] [place] to mod LV dilation, moderately dec LV function EF 40%, hypokinesis of apical septum and apex, no thrombus with contrastr used, nl RV, severe peak V 2.5 m/s, peak/mean gradient 25/15 mmHg, USHA 0.69 cm2, DI 0.23, mild AR, mild MR CXR: +congestive changes tele: sinus A/P: 83 yr old lady with known CAD/pci, chf, HTN, HPL, DM, pad, obesity, pafib (dx when admitted for copd) here with shortness of breath PNA, sepsis - manage per primary, ID elevated trop - flat trend, indeterminate range, no ischemic changes - likely demand in setting of infection CAD - s/p cath at [facility] [place] - stable CAD, no intervention - cont toprol, lipitor, eliquis chronic systolic HF - EF 40% on most recent echo at [facility] [place] - cont metoprolol - Mildly volume overloaded, started on IV Lasix yesterday would continue and follow weights - monitor daily weights, Cr, lytes afib - sinus here - cont eliquis, toprol HLD - cont statin DM - manage per primary hypothyroidism - manage per primary COPD - manage per primary HTN - cont home meds - severe on echo at [facility] [place], outpt f/u Anemia: -F/u H/H
[2018-12-10] MEDS: metoPROLOL SUCCINATE 25 MG TAB.SR.24H (FP) PO SCH (09:29)
[2018-12-10] MEDS: APIXABAN 5 MG TABLET PO SCH ×2 (09:29→22:09)
[2018-12-10] MEDS: predniSONE 10 MG TABLET (UD) PO SCH (09:29)
[2018-12-10] MEDS: PANTOPRAZOLE 40 MG TABLET (FP) PO SCH (09:29)
[2018-12-10] MEDS: POLYETHYLENE GLYCOL 3350 119 GM BTL PO SCH ×2 (09:31→22:09)
[2018-12-10] MEDS: FUROSEMIDE 40 MG/4 ML INJECTABLE VIAL IVPUSH SCH (09:34)
--- NOTE | 2018-12-10 14:02 | PN ---
Teaching Attending Note Name of Resident: David Webster ATTENDING PHYSICIAN STATEMENT I saw and evaluated the patient. I reviewed the resident's note and discussed the case with the resident. I agree with the resident's findings and plan as documented with exceptions below. SUBJECTIVE: Patient seen and examined, denies any dyspnea or pain currently. Limited participation. OBJECTIVE: Vital Signs Period Temp Pulse Resp BP Sys/Gardner Pulse Ox Last 24 Hr 98.2 F-98.6 F 72-86 18-20 112-150/54-68 98-100 Intake & Output 12/07/18 12/08/18 12/09/18 12/10/18 23:59 23:59 23:59 23:59 Intake Total 1020 1200 1050 430 Output Total 1000 Balance 20 1200 1050 430 Weight 210 lb 213 lb General: sitting in bed in no acute distress CVS:S1S2 irregular Chest: scattered expiratory wheezing with basilar rales Abdomen: soft, obese, NT Extremities: 1+ pedal edema Home Medications Medication Instructions Recorded Insulin Lispro [Humalog] 0 unit SQ TIDCM PRN 03/02/14 Apixaban [Eliquis -] 5 mg PO BID #60 tablet 06/09/17 Insulin (Levemir) [Levemir Vial] 15 unit SQ HS 07/16/17 Furosemide [Lasix] 40 mg PO DAILY #30 tablet 07/20/17 Levothyroxine [Synthroid -] 25 mcg PO DAILY 10/27/17 Atorvastatin Ca [Lipitor] 40 mg PO HS #30 tablet 11/04/17 Pantoprazole Sodium [Protonix -] 40 mg PO DAILY #30 tablet.ec 11/04/17 Metoprolol Succinate [Toprol XL -] 25 mg PO DAILY 10/21/18 Albuterol 0.083% Nebulizer Nel 1 amp NEB Q4H PRN 90 Days #6 box 10/28/18 [Ventolin 0.083% Nebulizer Soln -] Nebulizer and Compressor [Portable 1 each MC BID #1 each 10/28/18 Nebulizer System] Prednisone 10 mg PO DAILY 11/20/18 Active Medications Albuterol Sulfate (Ventolin 0.083% Nebulizer Soln -) 1 amp NEB Q4H PRN PRN Reason: SHORT OF BREATH/WHEEZING Last Admin: 12/08/18 03:05 Dose: 1 amp Albuterol/Ipratropium (Duoneb -) 1 amp NEB Q4H PRN PRN Reason: SHORTNESS OF BREATH Last Admin: 12/10/18 07:45 Dose: 1 amp Apixaban (Eliquis -) 5 mg PO BID [facility] Last Admin: 12/10/18 09:29 Dose: 5 mg Atorvastatin Calcium (Lipitor -) 40 mg PO HS [facility] Last Admin: 12/09/18 21:44 Dose: 40 mg Docusate Sodium (Colace -) 100 mg PO TID [facility] Furosemide (Lasix Injection -) 40 mg IVPUSH DAILY [facility] Last Admin: 12/10/18 09:34 Dose: 40 mg Cefepime HCl 1 gm/ Dextrose 50 mls @ 100 mls/hr IVPB Q8H-IV [facility]; Protocol Last Admin: 12/10/18 09:29 Dose: 100 mls/hr Insulin Aspart (Novolog Vial Sliding Scale -) 1 vial SQ ACHS [facility]; Protocol Last Admin: 12/10/18 12:49 Dose: 4 units Insulin Detemir (Levemir Vial) 20 units SQ HS [facility] Last Admin: 12/09/18 21:44 Dose: 20 units Levothyroxine Sodium (Synthroid -) 25 mcg PO DAILY@0700 [facility] Last Admin: 12/10/18 07:02 Dose: 25 mcg Metoprolol Succinate (Toprol Xl -) 25 mg PO DAILY [facility] Last Admin: 12/10/18 09:29 Dose: 25 mg Pantoprazole Sodium (Protonix -) 40 mg PO DAILY [facility] Last Admin: 12/10/18 09:29 Dose: 40 mg Polyethylene Glycol (Miralax (For Daily Use) -) 17 gm PO BID [facility] Last Admin: 12/10/18 09:31 Dose: 17 grams Prednisone (Deltasone -) 10 mg PO DAILY [facility] Last Admin: 12/10/18 09:29 Dose: 10 mg Senna (Senna -) 2 tab PO HS PRN PRN Reason: CONSTIPATION Microbiology 12/07/18 12:15 Blood - Peripheral Venous Blood Culture - Preliminary NO GROWTH OBTAINED AFTER 72 HOURS, INCUBATION TO CONTINUE FOR 2 DAYS. 12/07/18 12:40 Blood - Peripheral Venous Blood Culture - Preliminary NO GROWTH OBTAINED AFTER 72 HOURS, INCUBATION TO CONTINUE FOR 2 DAYS. 12/07/18 12:50 Urine - Urine - Catheterized Urine Culture - Final NO GROWTH OBTAINED 12/07/18 17:37 Urine For Antigen Detection Legionella Antigen - Final 12/07/18 17:37 Urine For Antigen Detection Streptococcus pneumoniae Antigen (M - Final ASSESSMENT AND PLAN: 83 yof with PMHx of COPD (on trilogy), CAD, chronic systolic heart failure, Afib on eliquis, HTN, HLD, type II DM, recurrent recent admissions with COPD/ CHF in 09/2018, then cardiogenic shock/[place]/CHF, [place] [facility] [place] with non obstructive CAD/severe , admitted with dyspnea, dry cough. -Acute hypoxic/hypercapneic respiratory failure -Acute RLL HCAP (r/o gm neg PNA) with sepsis -Acute on chronic systolic heart failure exacerbation -Severe -Afib on eliquis -HTN -HLD -Type II DM Plan: Continue lasix IV, cardiology input noted. Monitor volume status. IVF d/rachna . Discuss about eventual plan for severe given recurrent admissions with volume overload ID input noted. Cefepime. Blood cx neg so far. Urine PNA studies neg. Prednisone 10 mg daily from recent taper. Bipap prn. Continue eliquis/metoprolol/statin DVTPPX on eliquis Palliative care input to address overall goals of care Discussed with nursing and cardiology Dr. Jarrell.
[2018-12-10] MEDS: DOCUSATE SODIUM 100 MG CAPSULE (FP) PO SCH ×2 (14:12→22:08)
[2018-12-10] MEDS ORDERED: SENNOSIDES 8.6MG TABLET (FP) PO PRN (22:00)
[2018-12-10] MEDS: ATORVASTATIN CA 40 MG TABLET (FP) PO SCH (22:08)
[2018-12-10] MEDS: INSULIN (LEVEMIR) 100 UNITS/ML UNITS SQ SCH (22:12)
[2018-12-11] MEDS: ALBUTEROL SO4 0.083% IH SOL 2.5 MG/3 ML VIAL.NEB. NEB PRN (01:35)
[2018-12-11] MEDS: CEFEPIME 1 GM in DEXTROSE 5%-WATER - 50 ML IVPB SCH ×4 (03:55→16:59)
[2018-12-11] MEDS ORDERED: CEFEPIME HCL 1 GM VIAL (RESTRICTED TO ID) ONE ×3 (05:05→16:58)
[2018-12-11] MEDS ORDERED: DEXTROSE 5%-WATER - 50 ML IVPB ONE ×3 (05:06→16:58)
[2018-12-11] MEDS: DOCUSATE SODIUM 100 MG CAPSULE (FP) PO SCH ×3 (05:20→22:13)
[2018-12-11] MEDS: INSULIN SLIDING SCALE (NOVOLOG) 1 VIAL SQ SCH ×4 (06:27→23:29)
[2018-12-11] MEDS: LEVOTHYROXINE NA 25 MCG TABLET (FP) PO SCH (06:27)
--- NOTE | 2018-12-11 07:23 | PN ---
Physical Exam: SUBJECTIVE: Patient seen and examined at bed side , spend night on 3 L nc , no bipap needed last night , feel fatigue and tired , denies any cp, or abdominal pain had on BM yesterday. OBJECTIVE: Vital Signs Period Temp Pulse Resp BP Sys/Gardner Pulse Ox Last 24 Hr 98.2 F-98.5 F 69-85 18-20 112-146/52-64 98-100 GENERAL: AAOx3 in NAD , obese lady on 3 L NC HEAD: NC/AT EYES:, Conjunctiva clear, sclera anicteric ENT: moist mucous membrane NECK: Supple, no JVD LUNGS:decrease breath sounds at the bases , bibasilar rales HEART: AFIB, normal s1, s2, murmur no M/R/G ABDOMEN: Obese Soft, ND, NT, +BS 4 Q, no CVA Tenderness, toscano in place LOWER EXTREMITIES: trace edema, +2DP pulse, NEUROLOGICAL: No focal deficit. Normal speech. gait not observed. PSYCHIATRIC: Cooperative. Good eye contact. Appropriate mood and affect. SKIN: Warm, dry, Laboratory Results - last 24 hr 12/10/18 12/10/18 12/10/18 05:32 05:32 11:02 WBC 4.6 RBC 3.87 Hgb 8.1 L Hct 26.1 L MCV 67.4 L MCH 20.9 L MCHC 31.0 L RDW 19.7 H Plt Count 161 MPV 9.1 Absolute Neuts (auto) 3.3 Neutrophils % 71.4 Lymphocytes % 17.3 Monocytes % 6.8 Eosinophils % 4.1 Basophils % 0.4 Nucleated RBC % 0 Sodium 140 Potassium 4.5 Chloride 98 Carbon Dioxide 38 H Anion Gap 4 L BUN 19.6 H Creatinine 0.8 Est GFR (CKD-EPI)AfAm 79.57 Est GFR (CKD-EPI)NonAf 68.66 POC Glucometer 212 Random Glucose 134 H Calcium 8.8 Total Bilirubin 1.6 H AST 24 ALT 22 Alkaline Phosphatase 67 Total Protein 6.6 Albumin 2.7 L 12/10/18 12/10/18 12/11/18 16:51 22:07 05:17 WBC RBC Hgb Hct MCV MCH MCHC RDW Plt Count MPV Absolute Neuts (auto) Neutrophils % Lymphocytes % Monocytes % Eosinophils % Basophils % Nucleated RBC % Sodium Potassium Chloride Carbon Dioxide Anion Gap BUN Creatinine Est GFR (CKD-EPI)AfAm Est GFR (CKD-EPI)NonAf POC Glucometer 251 245 96 Random Glucose Calcium Total Bilirubin AST ALT Alkaline Phosphatase Total Protein Albumin Active Medications Generic Name Dose Route Start Last Admin Trade Name Freq PRN Reason Stop Dose Admin Albuterol Sulfate 1 amp 12/07/18 16:30 12/11/18 01:35 Ventolin 0.083% Nebulizer Soln - NEB 1 amp Q4H PRN Administration SHORT OF BREATH/WHEEZING Albuterol/Ipratropium 1 amp 12/07/18 17:30 12/10/18 07:45 Duoneb - NEB 1 amp Q4H PRN Administration SHORTNESS OF BREATH Apixaban 5 mg 12/07/18 22:00 12/10/18 22:09 Eliquis - PO 5 mg BID RYANN Administration Atorvastatin Calcium 40 mg 12/07/18 22:00 12/10/18 22:08 Lipitor - PO 40 mg HS RYANN Administration Docusate Sodium 100 mg 12/10/18 14:00 12/11/18 05:20 Colace - PO 100 mg TID RYANN Administration Furosemide 40 mg 12/09/18 11:15 12/10/18 09:34 Lasix Injection - IVPUSH 40 mg DAILY RYANN Administration Cefepime HCl 1 gm/ Dextrose 50 mls @ 100 mls/hr 12/08/18 18:00 12/10/18 17:55 IVPB 100 mls/hr Q8H-IV RYANN Administration Protocol Insulin Aspart 1 vial 12/07/18 22:00 12/11/18 06:27 Novolog Vial Sliding Scale - SQ Not Given ACHS [facility] Protocol Insulin Detemir 20 units 12/08/18 13:07 12/10/18 22:12 Levemir Vial SQ 20 units HS RYANN Administration Levothyroxine Sodium 25 mcg 12/08/18 07:00 12/11/18 06:27 Synthroid - PO 25 mcg DAILY@0700 RYANN Administration Metoprolol Succinate 25 mg 12/08/18 10:00 12/10/18 09:29 Toprol Xl - PO 25 mg DAILY RYANN Administration Pantoprazole Sodium 40 mg 12/08/18 10:00 12/10/18 09:29 Protonix - PO 40 mg DAILY RYANN Administration Polyethylene Glycol 17 gm 12/10/18 10:00 12/10/18 22:09 Miralax (For Daily Use) - PO 17 grams BID RYANN Administration Prednisone 10 mg 12/08/18 10:00 12/10/18 09:29 Deltasone - PO 10 mg DAILY RYANN Administration Senna 2 tab 12/10/18 22:00 Senna - PO HS PRN CONSTIPATION CBC, BMP 12/11/18 05:36 12/11/18 05:36 ASSESSMENT/PLAN: 83 year old female with a significant past medical history of COPD (trilogy machine), CHF, CAD/[place]/cath, Afib (on eliquis), Afib, HTN, HLD, Type 2 DM who presents to the ED via EMS with dyspnea on exertion.was found ti have fever 101, HR 110 and RLB atelectasis admitted for HPNA . # Sepsis 2/2 PNA , resolving * dry cough , RLB atelectsis , HR 110, Fever 101 on admission. 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 # COPD cont Duoneb, Albuterol, Prednisone 10 mg po daily , BIPAP as needed # CAD/MA/ # AFIB on ELiquis 5 BID ,Toprol XL 25 po daily #HTN # HLD on Lipitor 40 daily # DM # HYpothyroidism: cont Synthroid # GERD : PPi 40 daily #FEN F: DC fluids E: monitor lytes N:low NA diabetic diet # Proph : Dvts : On Eliquis # Dispo: monitor on tele PT evaluation Visit type - Emergency Visit Emergency Visit: Yes ED Registration Date: 12/07/18 Care time: The patient presented to the Emergency Department on the above date and was hospitalized for further evaluation of their emergent condition. - New Patient This patient is new to me today: No - Critical Care Critical Care patient: No ATTENDING PHYSICIAN STATEMENT I saw and evaluated the patient. I reviewed the resident's note and discussed the case with the resident. I agree with the resident's findings and plan as documented. SUBJECTIVE: OBJECTIVE: ASSESSMENT AND PLAN:
[2018-12-11 07:27] LABS: BASO % 0.8 % (0-2.0); EOS % 4.6 % (0-4.5); HEMATOCRIT 26.7 % (32.4-45.2); HEMOGLOBIN 8.4 GM/dL (10.7-15.3); LYMPH % 25.9 % (8-40); MCH 21.1 pg (25.7-33.7); MCHC 31.3 g/dl (32.0-36.0); MEAN CELL VOLUME 67.2 fl (80-96); MEAN PLT VOLUME 8.5 fl (7.5-11.1); MONO % 7.1 % (3.8-10.2); NEUT % 61.6 % (42.8-82.8); PLATELET COUNT 172 K/MM3 (134-434); RBC 3.97 M/mm3 (3.60-5.2); RDW 19.2 % (11.6-15.6); WHITE BLOOD COUNT 4.9 K/mm3 (4.0-10.0)
[2018-12-11 07:48] LABS: BLOOD UREA NITROGEN 20.7 mg/dL (7-18); CALCIUM 9.2 mg/dL (8.5-10.1); CREATININE 0.8 mg/dL (0.55-1.3); POTASSIUM 4.2 mmol/L (3.5-5.1)
--- NOTE | 2018-12-11 09:24 | PN ---
Progress Note, Physician Chief Complaint: alert, no distress TELE: NSR, couplets. Weight down. - Current Medication List Current Medications: Active Medications Albuterol Sulfate (Ventolin 0.083% Nebulizer Soln -) 1 amp NEB Q4H PRN PRN Reason: SHORT OF BREATH/WHEEZING Last Admin: 12/11/18 01:35 Dose: 1 amp Albuterol/Ipratropium (Duoneb -) 1 amp NEB Q4H PRN PRN Reason: SHORTNESS OF BREATH Last Admin: 12/10/18 07:45 Dose: 1 amp Apixaban (Eliquis -) 5 mg PO BID [facility] Last Admin: 12/10/18 22:09 Dose: 5 mg Atorvastatin Calcium (Lipitor -) 40 mg PO HS [facility] Last Admin: 12/10/18 22:08 Dose: 40 mg Docusate Sodium (Colace -) 100 mg PO TID [facility] Last Admin: 12/11/18 05:20 Dose: 100 mg Furosemide (Lasix Injection -) 40 mg IVPUSH DAILY [facility] Last Admin: 12/10/18 09:34 Dose: 40 mg Cefepime HCl 1 gm/ Dextrose 50 mls @ 100 mls/hr IVPB Q8H-IV [facility]; Protocol Last Admin: 12/10/18 17:55 Dose: 100 mls/hr Insulin Aspart (Novolog Vial Sliding Scale -) 1 vial SQ ACHS [facility]; Protocol Last Admin: 12/11/18 06:27 Dose: Not Given Insulin Detemir (Levemir Vial) 20 units SQ [facility] Last Admin: 12/10/18 22:12 Dose: 20 units Levothyroxine Sodium (Synthroid -) 25 mcg PO DAILY@0700 [facility] Last Admin: 12/11/18 06:27 Dose: 25 mcg Metoprolol Succinate (Toprol Xl -) 25 mg PO DAILY [facility] Last Admin: 12/10/18 09:29 Dose: 25 mg Pantoprazole Sodium (Protonix -) 40 mg PO DAILY [facility] Last Admin: 12/10/18 09:29 Dose: 40 mg Polyethylene Glycol (Miralax (For Daily Use) -) 17 gm PO BID [facility] Last Admin: 12/10/18 22:09 Dose: 17 grams Prednisone (Deltasone -) 10 mg PO DAILY [facility] Last Admin: 12/10/18 09:29 Dose: 10 mg Senna (Senna -) 2 tab PO HS PRN PRN Reason: CONSTIPATION - Objective Vital Signs: Vital Signs Temperature 98.5 F 12/11/18 08:58 Pulse Rate 76 12/11/18 08:58 Respiratory Rate 18 12/11/18 08:58 Blood Pressure 141/58 L 12/11/18 08:58 O2 Sat by Pulse Oximetry (%) 100 12/11/18 08:58 Constitutional: Yes: Calm Cardiovascular: Yes: Regular Rate and Rhythm Respiratory: Yes: Other (rales at bases, b/l) Gastrointestinal: Yes: Soft Edema: Yes Edema: LLE: 1+, RLE: 1+ Neurological: Yes: Alert, Oriented Labs: CBC, BMP 12/11/18 05:36 12/11/18 05:36 INR, PTT INR 1.62 (0.83-1.09) H 12/08/18 06:20 - ....Imaging EKG: Image Reviewed Assessment/Plan DATA: cath 11/22/18 LVEDP 28 mmHg (post nitro 20 mmHg). Mid GSE72-42% lesion; D1 ostial 70% lesion; mLAD and D1 stents are patent; ostial LCx 80-90% calcified lesion. No new significant lesion compared to the coronary angiogram done on 11/19/13. LVEF:40% echo 11/21/18 [facility] mild to mod LV dilation, moderately dec LV function EF 40%, hypokinesis of apical septum and apex, no thrombus with contrastr used, nl RV, severe peak V 2.5 m/s, peak/mean gradient 25/15 mmHg, USHA 0.69 cm2, DI 0.23, mild AR, mild MR tele: sinus A/P: 83 yr old lady with known CAD/pci, chf, HTN, HPL, DM, pad, obesity, pafib (dx when admitted for copd) here with shortness of breath due to acute on chronic combined systolic and diastolic CHF. PNA, sepsis: - manage per primary, ID Elevated trop: - flat trend, indeterminate range, no ischemic changes - likely demand in setting of infection CAD: - s/p cath at [facility] 10/2018 - stable CAD, no intervention - cont toprol, lipitor, eliquis Acute on chronic combined systolic and diastolic CHF: remains volume overloaded - EF 40% on most recent echo at [facility] - cont metoprolol - Increase Lasix to 40mg IV BID, daily weights, BMP to follow renal fx - monitor daily weights, Cr, lytes AF: - sinus here, cont tele while on IV Lasix BID and in decomp CHF - cont eliquis, toprol HLD - cont statin DM - manage per primary hypothyroidism - manage per primary COPD - manage per primary HTN - cont home meds - severe on echo at [facility], outpt f/u Anemia: -F/u H/H
[2018-12-11] MEDS: predniSONE 10 MG TABLET (UD) PO SCH (09:35)
[2018-12-11] MEDS: POLYETHYLENE GLYCOL 3350 119 GM BTL PO SCH ×2 (09:36→22:13)
[2018-12-11] MEDS: PANTOPRAZOLE 40 MG TABLET (FP) PO SCH (09:36)
[2018-12-11] MEDS: APIXABAN 5 MG TABLET PO SCH ×2 (09:36→22:13)
[2018-12-11] MEDS: FUROSEMIDE 40 MG/4 ML INJECTABLE VIAL IVPUSH SCH ×3 (09:37→13:46)
[2018-12-11] MEDS: metoPROLOL SUCCINATE 25 MG TAB.SR.24H (FP) PO SCH (09:43)
--- NOTE | 2018-12-11 11:38 | PN ---
Teaching Attending Note Name of Resident: David Webster ATTENDING PHYSICIAN STATEMENT I saw and evaluated the patient. I reviewed the resident's note and discussed the case with the resident. I agree with the resident's findings and plan as documented with exceptions below. SUBJECTIVE: Patient seen and examined. Still with dyspnea but improved. Leg pain, but no other complaints. OBJECTIVE: Vital Signs Period Temp Pulse Resp BP Sys/Gardner Pulse Ox Last 24 Hr 98.2 F-98.5 F 69-85 18-20 122-146/52-64 98-100 Intake & Output 12/08/18 12/09/18 12/10/18 12/11/18 23:59 23:59 23:59 23:59 Intake Total 1200 1050 1330 0 Balance 1200 1050 1330 0 Weight 213 lb 210 lb 12.8 oz General: sitting in bed in no acute distress Neck: neck vein distension CVS:S1S2 irregular Chest: bibasilar till mid lungs bilaterally Extremities: 1+ pedal pitting edema Abdomen: soft, obese, NT Home Medications Medication Instructions Recorded Insulin Lispro [Humalog] 0 unit SQ TIDCM PRN 03/02/14 Apixaban [Eliquis -] 5 mg PO BID #60 tablet 06/09/17 Insulin (Levemir) [Levemir Vial] 15 unit SQ HS 07/16/17 Furosemide [Lasix] 40 mg PO DAILY #30 tablet 07/20/17 Levothyroxine [Synthroid -] 25 mcg PO DAILY 10/27/17 Atorvastatin Ca [Lipitor] 40 mg PO HS #30 tablet 11/04/17 Pantoprazole Sodium [Protonix -] 40 mg PO DAILY #30 tablet.ec 11/04/17 Metoprolol Succinate [Toprol XL -] 25 mg PO DAILY 10/21/18 Albuterol 0.083% Nebulizer Nel 1 amp NEB Q4H PRN 90 Days #6 box 10/28/18 [Ventolin 0.083% Nebulizer Soln -] Nebulizer and Compressor [Portable 1 each MC BID #1 each 10/28/18 Nebulizer System] Prednisone 10 mg PO DAILY 11/20/18 Active Medications Albuterol Sulfate (Ventolin 0.083% Nebulizer Soln -) 1 amp NEB Q4H PRN PRN Reason: SHORT OF BREATH/WHEEZING Last Admin: 12/11/18 01:35 Dose: 1 amp Albuterol/Ipratropium (Duoneb -) 1 amp NEB Q4H PRN PRN Reason: SHORTNESS OF BREATH Last Admin: 12/10/18 07:45 Dose: 1 amp Apixaban (Eliquis -) 5 mg PO BID [facility] Last Admin: 12/11/18 09:36 Dose: 5 mg Atorvastatin Calcium (Lipitor -) 40 mg PO HS [facility] Last Admin: 12/10/18 22:08 Dose: 40 mg Docusate Sodium (Colace -) 100 mg PO TID [facility] Last Admin: 12/11/18 05:20 Dose: 100 mg Furosemide (Lasix Injection -) 40 mg IVPUSH BID@0600,1400 [facility] Last Admin: 12/11/18 09:43 Dose: Not Given Cefepime HCl 1 gm/ Dextrose 50 mls @ 100 mls/hr IVPB Q8H-IV [facility]; Protocol Last Admin: 12/11/18 09:35 Dose: 100 mls/hr Insulin Aspart (Novolog Vial Sliding Scale -) 1 vial SQ ACHS [facility]; Protocol Last Admin: 12/11/18 06:27 Dose: Not Given Insulin Detemir (Levemir Vial) 20 units SQ HS [facility] Last Admin: 12/10/18 22:12 Dose: 20 units Levothyroxine Sodium (Synthroid -) 25 mcg PO DAILY@0700 [facility] Last Admin: 12/11/18 06:27 Dose: 25 mcg Metoprolol Succinate (Toprol Xl -) 25 mg PO DAILY [facility] Last Admin: 12/11/18 09:43 Dose: 25 mg Pantoprazole Sodium (Protonix -) 40 mg PO DAILY [facility] Last Admin: 12/11/18 09:36 Dose: 40 mg Polyethylene Glycol (Miralax (For Daily Use) -) 17 gm PO BID [facility] Last Admin: 12/11/18 09:36 Dose: 17 grams Prednisone (Deltasone -) 10 mg PO DAILY [facility] Last Admin: 12/11/18 09:35 Dose: 10 mg Senna (Senna -) 2 tab PO HS PRN PRN Reason: CONSTIPATION Laboratory Results - last 24 hr 12/10/18 12/10/18 12/11/18 16:51 22:07 05:17 WBC RBC Hgb Hct MCV MCH MCHC RDW Plt Count MPV Absolute Neuts (auto) Neutrophils % Lymphocytes % Monocytes % Eosinophils % Basophils % Nucleated RBC % Sodium Potassium Chloride Carbon Dioxide Anion Gap BUN Creatinine Est GFR (CKD-EPI)AfAm Est GFR (CKD-EPI)NonAf POC Glucometer 251 245 96 Random Glucose Calcium 12/11/18 12/11/18 05:36 05:36 WBC 4.9 RBC 3.97 Hgb 8.4 L Hct 26.7 L MCV 67.2 L MCH 21.1 L MCHC 31.3 L RDW 19.2 H Plt Count 172 MPV 8.5 Absolute Neuts (auto) 3.1 Neutrophils % 61.6 Lymphocytes % 25.9 D Monocytes % 7.1 Eosinophils % 4.6 H Basophils % 0.8 Nucleated RBC % 0 Sodium 141 Potassium 4.2 Chloride 95 L Carbon Dioxide 43 H Anion Gap 3 L BUN 20.7 H Creatinine 0.8 Est GFR (CKD-EPI)AfAm 79.57 Est GFR (CKD-EPI)NonAf 68.66 POC Glucometer Random Glucose 100 Calcium 9.2 Microbiology 12/07/18 12:15 Blood - Peripheral Venous Blood Culture - Preliminary NO GROWTH OBTAINED AFTER 72 HOURS, INCUBATION TO CONTINUE FOR 2 DAYS. 12/07/18 12:40 Blood - Peripheral Venous Blood Culture - Preliminary NO GROWTH OBTAINED AFTER 72 HOURS, INCUBATION TO CONTINUE FOR 2 DAYS. 12/07/18 12:50 Urine - Urine - Catheterized Urine Culture - Final NO GROWTH OBTAINED 12/07/18 17:37 Urine For Antigen Detection Legionella Antigen - Final 12/07/18 17:37 Urine For Antigen Detection Streptococcus pneumoniae Antigen (M - Final ASSESSMENT AND PLAN: 83 yof with PMHx of COPD (on trilogy), CAD, chronic systolic heart failure, Afib on eliquis, HTN, HLD, type II DM, recurrent recent admissions with COPD/ CHF in 09/2018, then cardiogenic [place]/CHF, [place] [facility] [place] with non obstructive CAD/severe , admitted with dyspnea, dry cough. -Acute hypoxic/hypercapneic respiratory failure -Acute RLL HCAP (r/o gm neg PNA) with sepsis -Acute on chronic systolic heart failure exacerbation -Severe -Afib on eliquis -HTN -HLD -Type II DM Plan: Cardiology input noted, lasix increased. Monitor volume status. IVF d/rachna 12/09. Discuss about eventual plan for severe given recurrent admissions with volume overload Cefepime day 4. Blood cx neg so far. Urine PNA studies neg. Discuss with ID about abx taper. Prednisone 10 mg daily from recent taper. Bipap prn. Continue eliquis/metoprolol/statin DVTPPX on eliquis Palliative care input to address overall goals of care Discussed with nursing and patient, all questions answered.
[2018-12-11 14:34] LABS: ANISOCYTOSIS 1+; MACROCYTOSIS 0; PLATELET ESTIMATE NORMAL; TARGET CELLS 1+; TEAR DROP CELLS 1+
[2018-12-11] MEDS ORDERED: PT OWN MED DRAWER 7, Y5N ONE (16:47)
--- NOTE | 2018-12-11 17:14 | PN ---
Progress Note (short form) - Note Progress Note: looks well NAD Vital Signs Period Temp Pulse Resp BP Sys/Gardner Pulse Ox Last 24 Hr 98.2 F-98.5 F 72-82 17-20 132-146/52-63 98-100 cor-rrr lungs decreased bs at bases abd soft,nt ext no edema CBC, BMP 12/11/18 05:36 12/11/18 05:36 Microbiology 12/07/18 12:40 Blood - Peripheral Venous Blood Culture - Preliminary NO GROWTH OBTAINED AFTER 96 HOURS, INCUBATION TO CONTINUE FOR 1 DAYS. 12/07/18 12:15 Blood - Peripheral Venous Blood Culture - Preliminary NO GROWTH OBTAINED AFTER 96 HOURS, INCUBATION TO CONTINUE FOR 1 DAYS. 12/07/18 12:50 Urine - Urine - Catheterized Urine Culture - Final NO GROWTH OBTAINED 12/07/18 17:37 Urine For Antigen Detection Legionella Antigen - Final 12/07/18 17:37 Urine For Antigen Detection Streptococcus pneumoniae Antigen (M - Final a/p RLL pneumonia- day #4 cefepime - has been afebrile since admission, can switch to ceftin 500 bid in am to complete 7 days penicillin allergy noted elevated troponins/- per cardiology please call back if needed
[2018-12-11] MEDS: ATORVASTATIN CA 40 MG TABLET (FP) PO SCH (22:13)
[2018-12-11] MEDS: INSULIN (LEVEMIR) 100 UNITS/ML UNITS SQ SCH (23:28)
[2018-12-12] MEDS: CEFEPIME 1 GM in DEXTROSE 5%-WATER - 50 ML IVPB SCH ×2 (04:05→09:40)
[2018-12-12] MEDS ORDERED: CEFEPIME HCL 1 GM VIAL (RESTRICTED TO ID) ONE ×2 (05:36→08:38)
[2018-12-12] MEDS ORDERED: DEXTROSE 5%-WATER - 50 ML IVPB ONE ×2 (05:36→08:38)
[2018-12-12] MEDS: DOCUSATE SODIUM 100 MG CAPSULE (FP) PO SCH ×3 (05:41→22:37)
[2018-12-12] MEDS: FUROSEMIDE 40 MG/4 ML INJECTABLE VIAL IVPUSH SCH ×2 (05:41→13:22)
[2018-12-12] MEDS: LEVOTHYROXINE NA 25 MCG TABLET (FP) PO SCH (06:15)
[2018-12-12] MEDS: INSULIN SLIDING SCALE (NOVOLOG) 1 VIAL SQ SCH ×4 (06:15→22:37)
[2018-12-12 07:19] LABS: BASO % 0.6 % (0-2.0); EOS % 4.3 % (0-4.5); HEMATOCRIT 27.3 % (32.4-45.2); HEMOGLOBIN 8.5 GM/dL (10.7-15.3); LYMPH % 27.1 % (8-40); MCH 20.9 pg (25.7-33.7); MCHC 31.3 g/dl (32.0-36.0); MEAN CELL VOLUME 66.7 fl (80-96); MEAN PLT VOLUME 8.5 fl (7.5-11.1); MONO % 7.8 % (3.8-10.2); NEUT % 60.2 % (42.8-82.8); PLATELET COUNT 188 K/MM3 (134-434); RBC 4.09 M/mm3 (3.60-5.2); RDW 19.4 % (11.6-15.6); WHITE BLOOD COUNT 4.7 K/mm3 (4.0-10.0)
[2018-12-12 07:39] LABS: ANION GAP 4 MMOL/L (8-16); BLOOD UREA NITROGEN 22.8 mg/dL (7-18); CALCIUM 9.2 mg/dL (8.5-10.1); CHLORIDE 93 mmol/L (98-107); CO2 > 45 mmol/L (21-32); CREATININE 0.8 mg/dL (0.55-1.3); GLUCOSE,RANDOM 72 mg/dL (74-106); POTASSIUM 3.8 mmol/L (3.5-5.1); SODIUM 142 mmol/L (136-145)
--- NOTE | 2018-12-12 08:37 | PN ---
Progress Note, Physician Chief Complaint: sob History of Present Illness: currently she denies sob. also denies chest pain, palpitations, leg swelling no cigs - Current Medication List Current Medications: Active Medications Albuterol Sulfate (Ventolin 0.083% Nebulizer Soln -) 1 amp NEB Q4H PRN PRN Reason: SHORT OF BREATH/WHEEZING Last Admin: 12/11/18 01:35 Dose: 1 amp Albuterol/Ipratropium (Duoneb -) 1 amp NEB Q4H PRN PRN Reason: SHORTNESS OF BREATH Last Admin: 12/10/18 07:45 Dose: 1 amp Apixaban (Eliquis -) 5 mg PO BID [facility] Last Admin: 12/11/18 22:13 Dose: 5 mg Atorvastatin Calcium (Lipitor -) 40 mg PO HS [facility] Last Admin: 12/11/18 22:13 Dose: 40 mg Docusate Sodium (Colace -) 100 mg PO TID [facility] Last Admin: 12/12/18 05:41 Dose: 100 mg Furosemide (Lasix Injection -) 40 mg IVPUSH BID@0600,1400 [facility] Last Admin: 12/12/18 05:41 Dose: 40 mg Cefepime HCl 1 gm/ Dextrose 50 mls @ 100 mls/hr IVPB Q8H-IV [facility]; Protocol Last Admin: 12/12/18 04:05 Dose: 100 mls/hr Insulin Aspart (Novolog Vial Sliding Scale -) 1 vial SQ ACHS [facility]; Protocol Last Admin: 12/12/18 06:15 Dose: Not Given Insulin Detemir (Levemir Vial) 20 units SQ [facility] Last Admin: 12/11/18 23:28 Dose: 20 units Levothyroxine Sodium (Synthroid -) 25 mcg PO DAILY@0700 [facility] Last Admin: 12/12/18 06:15 Dose: 25 mcg Metoprolol Succinate (Toprol Xl -) 25 mg PO DAILY [facility] Last Admin: 12/11/18 09:43 Dose: 25 mg Pantoprazole Sodium (Protonix -) 40 mg PO DAILY [facility] Last Admin: 12/11/18 09:36 Dose: 40 mg Polyethylene Glycol (Miralax (For Daily Use) -) 17 gm PO BID [facility] Last Admin: 12/11/18 22:13 Dose: 17 grams Prednisone (Deltasone -) 10 mg PO DAILY [facility] Last Admin: 12/11/18 09:35 Dose: 10 mg Senna (Senna -) 2 tab PO HS PRN PRN Reason: CONSTIPATION - Objective Vital Signs: Vital Signs Temperature 98.6 F 12/12/18 08:09 Pulse Rate 75 12/12/18 08:09 Respiratory Rate 20 12/12/18 08:13 Blood Pressure 139/61 12/12/18 08:09 O2 Sat by Pulse Oximetry (%) 100 12/11/18 08:58 Constitutional: Yes: No Distress, Calm Eyes: No: Sclera Icterus HENT: No: Nasal Congestion Cardiovascular: Yes: Regular Rate and Rhythm, Murmur (very soft heart sounds, + soft LENNY rusb, no S2 split), S1, S2, Other (PMI non diplaced). No: JVD (short neck/tds exam), Gallop Respiratory: Yes: Regular, Rales (R lung), Wheezes (soft). No: Accessory Muscle Use Gastrointestinal: Yes: Normal Bowel Sounds, Soft. No: Tenderness Musculoskeletal: Yes: Other (No kyphosis) Extremities: No: Cold, Cyanosis Edema: No Integumentary: No: Jaundice Neurological: Yes: Alert. No: Seizure Psychiatric: No: Agitated Labs: CBC, BMP 12/12/18 05:31 12/12/18 05:31 INR, PTT INR 1.62 (0.83-1.09) H 12/08/18 06:20 Assessment/Plan cath 11/22/18 LVEDP 28 mmHg (post nitro 20 mmHg). Mid PPV61-45% lesion; D1 ostial 70% lesion; mLAD and D1 stents are patent; ostial LCx 80-90% calcified lesion. No new significant lesion compared to the coronary angiogram done on 11/19/13. echo 11/21/18 [facility] mild to mod LV dilation, moderately dec LV function EF 40%, hypokinesis of apical septum and apex, no thrombus with contrastr used, nl RV, severe peak V 2.5 m/s, peak/mean gradient 25/15 mmHg, USHA 0.69 cm2, DI 0.23, mild AR, mild MR tele: NSR, VT x 16b A/P: 83 yr old lady with known CAD/pci, chf, HTN, HPL, DM, pad, obesity, pafib (dx when admitted for copd) here with shortness of breath due to acute on chronic combined systolic and diastolic CHF, ? PNA/a.e. copd PNA, a.e. copd - soft wheezing, observe on metoprolol - manage per primary, ID Elevated trop: - flat trend, indeterminate range, no ischemic changes - likely demand in setting of infection CAD: - s/p cath at [facility] [place] with stable CAD with LCX stenosis and ostial D1 disease --no intervention - cont toprol, lipitor, eliquis Acute on chronic combined systolic and diastolic CHF: - EF 40% on most recent echo at [facility] [place] - cont metoprolol - no SKYLER/ARB (K > 6 with junctional bradycardic arrest 11/13) - 12/11 increased Lasix to 40mg IV BID--continue same - monitor daily weights, Cr, lytes VTach: - 16 beat run on tele - aggressive K/Mag repletion (>4/>2) - cont BB - will review with EP--unlikely this changes ICD consideration with EF > 35% Ao stenosis: - echo at [place] with USHA 0.69 but gradients in low-moderate range. - ? was felt to be low-output/low-gradient severe - plan needs to be clarified with [place] team and dr sorensen who follows pt in office (on Friday) AF: - sinus here - cont eliquis, toprol HLD - cont statin DM - manage per primary hypothyroidism - manage per primary HTN - bp reasonably controlled - cont home meds Anemia: -F/u H/H (close to recent baseline)
[2018-12-12] MEDS: PANTOPRAZOLE 40 MG TABLET (FP) PO SCH (09:40)
[2018-12-12] MEDS: predniSONE 10 MG TABLET (UD) PO SCH (09:40)
[2018-12-12] MEDS: POLYETHYLENE GLYCOL 3350 119 GM BTL PO SCH ×2 (09:40→22:38)
[2018-12-12] MEDS: APIXABAN 5 MG TABLET PO SCH ×2 (09:40→22:38)
[2018-12-12] MEDS: metoPROLOL SUCCINATE 25 MG TAB.SR.24H (FP) PO SCH (09:40)
[2018-12-12] MEDS ORDERED: POTASSIUM CHLORIDE TABS 10 MEQ TABLET.ER (FP) PO ONE (11:47)
[2018-12-12] MEDS ORDERED: MAG HYDROX/AL HYDROX/SIMETH 30 ML UNIT-DOSE CUP PO PRN (13:38)
--- NOTE | 2018-12-12 14:00 | PN ---
Physical Exam: SUBJECTIVE: Patient seen and examined, breathing better, no complaints. OBJECTIVE: Vital Signs Period Temp Pulse Resp BP Sys/Gardner Pulse Ox Last 24 Hr 96.6 F-98.6 F 68-79 17-20 130-144/54-62 Intake & Output 12/09/18 12/10/18 12/11/18 12/12/18 23:59 23:59 23:59 23:59 Intake Total 1050 1330 470 75 Balance 1050 1330 470 75 Weight 213 lb 210 lb 12.8 oz General: sitting in bed in no acute distress Neck: neck vein distension CVS:S1S2 irregular Chest: bibasilar rales improved, no wheezing Extremities: 1+ pedal pitting edema Abdomen: soft, obese, NT telemetry: NSVT Laboratory Results - last 24 hr 12/11/18 12/11/18 12/11/18 05:36 16:38 22:14 WBC RBC Hgb Hct MCV MCH MCHC RDW Plt Count MPV Absolute Neuts (auto) Neutrophils % Lymphocytes % Monocytes % Eosinophils % Basophils % Nucleated RBC % Hypochromia 0 Platelet Estimate Normal Polychromasia 1+ Poikilocytosis 1+ Basophilic Stippling 1+ Anisocytosis 1+ Microcytosis 1+ Macrocytosis 0 Target Cells 1+ Tear Drop Cells 1+ Sodium Potassium Chloride Carbon Dioxide Anion Gap BUN Creatinine Est GFR (CKD-EPI)AfAm Est GFR (CKD-EPI)NonAf POC Glucometer 231 187 Random Glucose Calcium Magnesium 12/12/18 12/12/18 12/12/18 05:31 05:31 05:44 WBC 4.7 RBC 4.09 Hgb 8.5 L Hct 27.3 L MCV 66.7 L MCH 20.9 L MCHC 31.3 L RDW 19.4 H Plt Count 188 MPV 8.5 Absolute Neuts (auto) 2.8 Neutrophils % 60.2 Lymphocytes % 27.1 Monocytes % 7.8 Eosinophils % 4.3 Basophils % 0.6 Nucleated RBC % 0 Hypochromia Platelet Estimate Polychromasia Poikilocytosis Basophilic Stippling Anisocytosis Microcytosis Macrocytosis Target Cells Tear Drop Cells Sodium 142 Potassium 3.8 Chloride 93 L Carbon Dioxide > 45 H Anion Gap 4 L BUN 22.8 H Creatinine 0.8 Est GFR (CKD-EPI)AfAm 79.57 Est GFR (CKD-EPI)NonAf 68.66 POC Glucometer 73 Random Glucose 72 L Calcium 9.2 Magnesium 2.0 12/12/18 12:00 WBC RBC Hgb Hct MCV MCH MCHC RDW Plt Count MPV Absolute Neuts (auto) Neutrophils % Lymphocytes % Monocytes % Eosinophils % Basophils % Nucleated RBC % Hypochromia Platelet Estimate Polychromasia Poikilocytosis Basophilic Stippling Anisocytosis Microcytosis Macrocytosis Target Cells Tear Drop Cells Sodium Potassium Chloride Carbon Dioxide Anion Gap BUN Creatinine Est GFR (CKD-EPI)AfAm Est GFR (CKD-EPI)NonAf POC Glucometer 121 Random Glucose Calcium Magnesium Active Medications Generic Name Dose Route Start Last Admin Trade Name Freq PRN Reason Stop Dose Admin Al Hydroxide/Mg Hydroxide 30 ml 12/12/18 13:38 Mylanta Oral Suspension - PO Q6H PRN DYSPEPSIA Albuterol Sulfate 1 amp 12/07/18 16:30 12/11/18 01:35 Ventolin 0.083% Nebulizer Soln - NEB 1 amp Q4H PRN Administration SHORT OF BREATH/WHEEZING Albuterol/Ipratropium 1 amp 12/07/18 17:30 12/10/18 07:45 Duoneb - NEB 1 amp Q4H PRN Administration SHORTNESS OF BREATH Apixaban 5 mg 12/07/18 22:00 12/12/18 09:40 Eliquis - PO 5 mg BID RYANN Administration Atorvastatin Calcium 40 mg 12/07/18 22:00 12/11/18 22:13 Lipitor - PO 40 mg HS RYANN Administration Cefuroxime Axetil 500 mg 12/12/18 22:00 Ceftin - PO 12/17/18 10:01 BID RYANN Docusate Sodium 100 mg 12/10/18 14:00 12/12/18 13:22 Colace - PO 100 mg TID RYANN Administration Furosemide 40 mg 12/11/18 09:30 12/12/18 13:22 Lasix Injection - IVPUSH 40 mg BID@0600,1400 R[facility]ANN Administration Insulin Aspart 1 vial 12/07/18 22:00 12/12/18 12:09 Novolog Vial Sliding Scale - SQ Not Given ACHS RYANN Protocol Insulin Detemir 20 units 12/08/18 13:07 12/11/18 23:28 Levemir Vial SQ 20 units HS RYANN Administration Levothyroxine Sodium 25 mcg 12/08/18 07:00 12/12/18 06:15 Synthroid - PO 25 mcg DAILY@0700 RYANN Administration Metoprolol Succinate 25 mg 12/08/18 10:00 12/12/18 09:40 Toprol Xl - PO 25 mg DAILY RYANN Administration Pantoprazole Sodium 40 mg 12/08/18 10:00 12/12/18 09:40 Protonix - PO 40 mg DAILY RYANN Administration Polyethylene Glycol 17 gm 12/10/18 10:00 12/12/18 09:40 Miralax (For Daily Use) - PO 17 grams BID RYANN Administration Prednisone 10 mg 12/08/18 10:00 12/12/18 09:40 Deltasone - PO 10 mg DAILY RYANN Administration Senna 2 tab 12/10/18 22:00 Senna - PO HS PRN CONSTIPATION ASSESSMENT/PLAN: 83 yof with PMHx of COPD (on trilogy), CAD, chronic systolic heart failure, Afib on eliquis, HTN, HLD, type II DM, recurrent recent admissions with COPD/ CHF in 09/2018, then cardiogenic shock/[place]/CHF, transferred [place] [facility] [place]p Cath with non obstructive CAD/severe , admitted with dyspnea, dry cough. -Acute hypoxic/hypercapneic respiratory failure -Acute RLL HCAP (r/o gm neg PNA) with sepsis -Acute on chronic systolic heart failure exacerbation -Severe -Afib on eliquis -HTN -HLD -Type II DM Plan: Cardiology input noted, lasix increased. Monitor volume status. IVF d/rachna 12/09. Discuss about eventual plan for severe given recurrent admissions with volume overload Cefepime day 5, ID input noted, transition to cefuroxime 500 mg BID for total 7 day course. Prednisone 10 mg daily from recent taper, dc after today. Bipap prn. Continue eliquis/metoprolol/statin DVTPPX on eliquis Palliative care input to address overall goals of care Discussed with nursing and patient, all questions answered. Visit type - Emergency Visit Emergency Visit: Yes ED Registration Date: 12/07/18 Care time: The patient presented to the Emergency Department on the above date and was hospitalized for further evaluation of their emergent condition. - New Patient This patient is new to me today: No - Critical Care Critical Care patient: No - Discharge Referral Referred to [facility] Med P.C.: No
[2018-12-12] MEDS ORDERED: PT OWN MED DRAWER 7, Y5N ONE ×2 (17:01→22:14)
[2018-12-12] MEDS: CEFUROXIME AXETIL 500 MG TABLET PO SCH (22:37)
[2018-12-12] MEDS: ATORVASTATIN CA 40 MG TABLET (FP) PO SCH (22:37)
[2018-12-12] MEDS: INSULIN (LEVEMIR) 100 UNITS/ML UNITS SQ SCH (22:37)
[2018-12-13] MEDS: INSULIN SLIDING SCALE (NOVOLOG) 1 VIAL SQ SCH ×4 (06:53→21:19)
[2018-12-13] MEDS: DOCUSATE SODIUM 100 MG CAPSULE (FP) PO SCH ×3 (06:57→21:16)
[2018-12-13] MEDS: LEVOTHYROXINE NA 25 MCG TABLET (FP) PO SCH (06:57)
[2018-12-13] MEDS: FUROSEMIDE 40 MG/4 ML INJECTABLE VIAL IVPUSH SCH ×2 (06:57→13:20)
[2018-12-13 07:36] LABS: BASO % 0.4 % (0-2.0); EOS % 3.5 % (0-4.5); HEMATOCRIT 29.3 % (32.4-45.2); HEMOGLOBIN 9.1 GM/dL (10.7-15.3); LYMPH % 32.2 % (8-40); MCH 20.7 pg (25.7-33.7); MCHC 30.9 g/dl (32.0-36.0); MEAN CELL VOLUME 67.1 fl (80-96); MEAN PLT VOLUME 8.4 fl (7.5-11.1); MONO % 7.2 % (3.8-10.2); NEUT % 56.7 % (42.8-82.8); PLATELET COUNT 202 K/MM3 (134-434); RBC 4.37 M/mm3 (3.60-5.2); RDW 18.9 % (11.6-15.6); WHITE BLOOD COUNT 5.7 K/mm3 (4.0-10.0)
[2018-12-13 07:54] LABS: ANION GAP 5 MMOL/L (8-16); BLOOD UREA NITROGEN 21.5 mg/dL (7-18); CHLORIDE 91 mmol/L (98-107); CO2 > 45 mmol/L (21-32); CREATININE 0.8 mg/dL (0.55-1.3); GLUCOSE,RANDOM 50 mg/dL (74-106); SODIUM 141 mmol/L (136-145)
--- NOTE | 2018-12-13 08:30 | PN ---
Progress Note, Physician Chief Complaint: sob History of Present Illness: denies sob, cp no palpit, syncope, leg swelling no cigs - Current Medication List Current Medications: Active Medications Al Hydroxide/Mg Hydroxide (Mylanta Oral Suspension -) 30 ml PO Q6H PRN PRN Reason: DYSPEPSIA Apixaban (Eliquis -) 5 mg PO BID [facility] Last Admin: 12/12/18 22:38 Dose: 5 mg Atorvastatin Calcium (Lipitor -) 40 mg PO [facility] Last Admin: 12/12/18 22:37 Dose: 40 mg Cefuroxime Axetil (Ceftin -) 500 mg PO BID [facility] Stop: 12/17/18 10:01 Last Admin: 12/12/18 22:37 Dose: 500 mg Docusate Sodium (Colace -) 100 mg PO TID [facility] Last Admin: 12/13/18 06:57 Dose: 100 mg Furosemide (Lasix Injection -) 40 mg IVPUSH BID@0600,1400 [facility] Last Admin: 12/13/18 06:57 Dose: 40 mg Insulin Aspart (Novolog Vial Sliding Scale -) 1 vial SQ [facility]; Protocol Last Admin: 12/13/18 06:53 Dose: Not Given Insulin Detemir (Levemir Vial) 15 units SQ [facility] Levothyroxine Sodium (Synthroid -) 25 mcg PO DAILY@0700 [facility] Last Admin: 12/13/18 06:57 Dose: 25 mcg Metoprolol Succinate (Toprol Xl -) 25 mg PO DAILY [facility] Last Admin: 12/12/18 09:40 Dose: 25 mg Pantoprazole Sodium (Protonix -) 40 mg PO DAILY [facility] Last Admin: 12/12/18 09:40 Dose: 40 mg Polyethylene Glycol (Miralax (For Daily Use) -) 17 gm PO BID [facility] Last Admin: 12/12/18 22:38 Dose: 17 grams Senna (Senna -) 2 tab PO HS PRN PRN Reason: CONSTIPATION - Objective Vital Signs: Vital Signs Temperature 97.7 F 12/13/18 06:00 Pulse Rate 71 12/13/18 06:00 Respiratory Rate 20 12/13/18 06:00 Blood Pressure 124/73 12/13/18 06:00 O2 Sat by Pulse Oximetry (%) 100 12/12/18 21:00 Constitutional: Yes: No Distress, Calm Eyes: No: Sclera Icterus HENT: No: Nasal Congestion Cardiovascular: Yes: Regular Rate and Rhythm (soft sounds), Murmur (soft syst murmur rusb), S1, S2, Other (PMI non diplaced). No: Gallop Respiratory: Yes: CTA Bilaterally, Diminished (bases), Rales (L base). No: Accessory Muscle Use, Wheezes Gastrointestinal: Yes: Normal Bowel Sounds, Soft. No: Tenderness Musculoskeletal: Yes: Other (No kyphosis) Extremities: No: Cold Edema: No Integumentary: No: Jaundice Neurological: Yes: Alert, Oriented (x3) Psychiatric: No: Agitated Labs: CBC, BMP 12/13/18 05:45 12/13/18 05:45 INR, PTT INR 1.62 (0.83-1.09) H 12/08/18 06:20 Assessment/Plan cath 11/22/18 LVEDP 28 mmHg (post nitro 20 mmHg). Mid OMB95-70% lesion; D1 ostial 70% lesion; mLAD and D1 stents are patent; ostial LCx 80-90% calcified lesion. No new significant lesion compared to the coronary angiogram done on 11/19/13. [place] [facility] [place] to mod LV dilation, moderately dec LV function EF 40%, hypokinesis of apical septum and apex, no thrombus with contrastr used, nl RV, severe peak V 2.5 m/s, peak/mean gradient 25/15 mmHg, USHA 0.69 cm2, DI 0.23, mild AR, mild MR CXR 12/09: congestive changes. bibasilar atx and fluid vs infiltrate tele: NSR, PVCs, PSVT +/- brief run PAF. no VT A/P: 83 yr old lady with known CAD/pci, chf, HTN, HPL, DM, pad, obesity, pafib (dx when admitted for copd) here with shortness of breath due to acute on chronic combined systolic and diastolic CHF, ? PNA/a.e. copd PNA, a.e. copd - soft wheezing, observe on metoprolol - manage per primary, ID Elevated trop: - flat trend, indeterminate range, no ischemic changes - likely demand in setting of acute chf CAD: - [place] [facility] [place] with [place] CAD with LCX stenosis and ostial D1 disease --no intervention - will discuss rationale with interventional cardio, in light of ? PMVT (as disc 'd below) - cont toprol, lipitor, eliquis Acute on chronic combined systolic and diastolic CHF: - EF 40% [place] [facility] [place] cont metoprolol - no SKYLER/ARB (K > 6 with junctional bradycardic arrest 11/13) - 12/11 increased Lasix to 40mg IV BID. wt down 6 lbs in past few days, renal fxn stable. effusions at bases persist on exam. same lasix, rpt cxr - monitor daily weights, Cr, lytes VTach: - 16 beat run on tele 12/12, ? polymorphic (not definitive) - aggressive K/Mag repletion (>4/>2) - cont BB - reviewed with EP: given possible PMVT appearance, recommends consideration of revascularization, possibly stress test to guide decisions. will d/w interventional cardio Ao stenosis: - echo at [facility] with USHA 0.69 but gradients in low-moderate range. ? was felt to be low-output/low-gradient severe vs only moderate. - these gradients ? do not qualify for TAVR given questionable benefits - plan needs to be clarified with [place] team and dr sorensen who follows pt in office (on Friday) AF: - sinus here - cont eliquis, toprol HLD - cont statin DM - manage per primary hypothyroidism - manage per primary HTN - bp reasonably controlled - cont home meds Anemia: -F/u H/H (close to recent baseline)
[2018-12-13] MEDS: POLYETHYLENE GLYCOL 3350 119 GM BTL PO SCH ×2 (09:16→21:17)
[2018-12-13] MEDS: metoPROLOL SUCCINATE 25 MG TAB.SR.24H (FP) PO SCH (09:17)
[2018-12-13] MEDS: CEFUROXIME AXETIL 500 MG TABLET PO SCH ×2 (09:17→21:16)
[2018-12-13] MEDS: PANTOPRAZOLE 40 MG TABLET (FP) PO SCH (09:17)
[2018-12-13] MEDS: APIXABAN 5 MG TABLET PO SCH ×2 (09:17→21:16)
--- NOTE | 2018-12-13 15:51 | PN ---
Physical Exam: SUBJECTIVE: Patient seen and examined, pain on right lateral abdomen/flank region, better, breathing better. OBJECTIVE: Vital Signs Period Temp Pulse Resp BP Sys/Gardner Pulse Ox Last 24 Hr 97.7 F-98.4 F 62-74 17-22 124-144/53-73 100-100 Intake & Output 12/10/18 12/11/18 12/12/18 12/13/18 23:59 23:59 23:59 23:59 Intake Total 1330 470 315 20 Balance 1330 470 315 20 Weight 213 lb 210 lb 12.8 oz 204 lb 9.6 oz Intake & Output 12/10/18 12/11/18 12/12/18 12/13/18 23:59 23:59 23:59 23:59 Intake Total 1330 470 315 20 Balance 1330 470 315 20 Weight 213 lb 210 lb 12.8 oz 204 lb 9.6 oz General: sitting in bed in no acute distress Neck: neck vein distension CVS:S1S2 irregular Chest: bibasilar rales improved, no wheezing Extremities: 1+ pedal pitting edema Abdomen: soft, obese, NT telemetry: NSVT, ?polymorphic on 12/12 Laboratory Results - last 24 hr 12/12/18 12/12/18 12/13/18 16:33 22:34 05:45 WBC RBC Hgb Hct MCV MCH MCHC RDW Plt Count MPV Absolute Neuts (auto) Neutrophils % Lymphocytes % Monocytes % Eosinophils % Basophils % Nucleated RBC % Sodium 141 Potassium 4.0 Chloride 91 L Carbon Dioxide > 45 H Anion Gap 5 L BUN 21.5 H Creatinine 0.8 Est GFR (CKD-EPI)AfAm 79.57 Est GFR (CKD-EPI)NonAf 68.66 POC Glucometer 265 158 Random Glucose 50 L Calcium 9.0 Magnesium 2.0 12/13/18 12/13/18 12/13/18 05:45 06:31 07:33 WBC 5.7 RBC 4.37 Hgb 9.1 L Hct 29.3 L MCV 67.1 L MCH 20.7 L MCHC 30.9 L RDW 18.9 H Plt Count 202 MPV 8.4 Absolute Neuts (auto) 3.2 Neutrophils % 56.7 Lymphocytes % 32.2 Monocytes % 7.2 Eosinophils % 3.5 Basophils % 0.4 Nucleated RBC % 0 Sodium Potassium Chloride Carbon Dioxide Anion Gap BUN Creatinine Est GFR (CKD-EPI)AfAm Est GFR (CKD-EPI)NonAf POC Glucometer 52 101 Random Glucose Calcium Magnesium 12/13/18 11:36 WBC RBC Hgb Hct MCV MCH MCHC RDW Plt Count MPV Absolute Neuts (auto) Neutrophils % Lymphocytes % Monocytes % Eosinophils % Basophils % Nucleated RBC % Sodium Potassium Chloride Carbon Dioxide Anion Gap BUN Creatinine Est GFR (CKD-EPI)AfAm Est GFR (CKD-EPI)NonAf POC Glucometer 135 Random Glucose Calcium Magnesium Active Medications Generic Name Dose Route Start Last Admin Trade Name Freq PRN Reason Stop Dose Admin Al Hydroxide/Mg Hydroxide 30 ml 12/12/18 13:38 Mylanta Oral Suspension - PO Q6H PRN DYSPEPSIA Apixaban 5 mg 12/07/18 22:00 12/13/18 09:17 Eliquis - PO 5 mg BID RYANN Administration Atorvastatin Calcium 40 mg 12/07/18 22:00 12/12/18 22:37 Lipitor - PO 40 mg HS RYANN Administration Cefuroxime Axetil 500 mg 12/12/18 22:00 12/13/18 09:17 Ceftin - PO 12/17/18 10:01 500 mg BID RYANN Administration Docusate Sodium 100 mg 12/10/18 14:00 12/13/18 13:20 Colace - PO 100 mg TID RYANN Administration Furosemide 40 mg 12/11/18 09:30 12/13/18 13:20 Lasix Injection - IVPUSH 40 mg BID@0600,1400 RYANN Administration Insulin Aspart 1 vial 12/07/18 22:00 12/13/18 12:20 Novolog Vial Sliding Scale - SQ Not Given [facility] Protocol Insulin Detemir 15 units 12/13/18 22:00 Levemir Vial SQ HS [facility] Levothyroxine Sodium 25 mcg 12/08/18 07:00 12/13/18 06:57 Synthroid - PO 25 mcg DAILY@0700 RYANN Administration Metoprolol Succinate 25 mg 12/08/18 10:00 12/13/18 09:17 Toprol Xl - PO 25 mg DAILY RYANN Administration Pantoprazole Sodium 40 mg 12/08/18 10:00 12/13/18 09:17 Protonix - PO 40 mg DAILY RYANN Administration Polyethylene Glycol 17 gm 12/10/18 10:00 12/13/18 09:16 Miralax (For Daily Use) - PO 17 grams BID RYANN Administration Senna 2 tab 12/10/18 22:00 Senna - PO HS PRN CONSTIPATION Microbiology 12/07/18 12:40 Blood - Peripheral Venous Blood Culture - Final NO GROWTH AFTER 5 DAYS INCUBATION 12/07/18 12:15 Blood - Peripheral Venous Blood Culture - Final NO GROWTH AFTER 5 DAYS INCUBATION 12/07/18 12:50 Urine - Urine - Catheterized Urine Culture - Final NO GROWTH OBTAINED 12/07/18 17:37 Urine For Antigen Detection Legionella Antigen - Final 12/07/18 17:37 Urine For Antigen Detection Streptococcus pneumoniae Antigen (M - Final ASSESSMENT/PLAN: 83 yof with PMHx of 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 -Acute on chronic systolic heart failure exacerbation-Acute hypoxic/ hypercapneic respiratory failure -Acute RLL HCAP (r/o gm neg PNA) with sepsis -Severe -Afib on eliquis -HTN -HLD -Type II DM Plan: CXR worse, ?increase lasix, discuss with cardiology. ?Polymorphic NSVT on 12/12, follow up with cardiology for additional intervention. Recurrent admissions with volume overload, [place] [facility] [place] reported severe . s/p 5 days of cefepime, ID input noted, cefuroxime 500 mg BID for total 7 day course. Off prednisone taper from recent admit. Bipap prn. Continue eliquis/metoprolol/statin DVTPPX on eliquis Palliative care input to address overall goals of care Discussed with nursing and patient, all questions answered. Visit type - Emergency Visit Emergency Visit: Yes ED Registration Date: 12/07/18 Care time: The patient presented to the Emergency Department on the above date and was hospitalized for further evaluation of their emergent condition. - New Patient This patient is new to me today: No - Critical Care Critical Care patient: No - Discharge Referral Referred to [facility] Med [facility] No
[2018-12-13] MEDS: ATORVASTATIN CA 40 MG TABLET (FP) PO SCH (21:17)
[2018-12-13] MEDS ORDERED: INSULIN (LEVEMIR) 100 UNITS/ML UNITS SQ SCH (22:00)
[2018-12-14] MEDS: INSULIN SLIDING SCALE (NOVOLOG) 1 VIAL SQ SCH ×4 (06:32→23:39)
[2018-12-14] MEDS: DOCUSATE SODIUM 100 MG CAPSULE (FP) PO SCH ×3 (06:33→21:29)
[2018-12-14] MEDS: FUROSEMIDE 40 MG/4 ML INJECTABLE VIAL IVPUSH SCH ×2 (06:33→14:59)
[2018-12-14] MEDS: LEVOTHYROXINE NA 25 MCG TABLET (FP) PO SCH (06:33)
--- NOTE | 2018-12-14 07:15 | PN ---
Physical Exam: SUBJECTIVE: Patient seen and examined breathing is better , BIPAP over night , OBJECTIVE: Vital Signs Period Temp Pulse Resp BP Sys/Gardner Pulse Ox Last 24 Hr 97.8 F-99.3 F 63-76 17-20 126-151/43-59 97-100 GENERAL: AAOx3 in NAD , obese lady on 3 L NC HEAD: NC/AT EYES:, Conjunctiva clear, sclera anicteric ENT: moist mucous membrane NECK: Supple, no JVD LUNGS:decrease breath sounds at the bases , bibasilar rales HEART: AFIB, normal s1, s2, murmur no M/R/G ABDOMEN: Obese Soft, ND, NT, +BS 4 Q, no CVA Tenderness, toscano in place LOWER EXTREMITIES: trace edema, +2DP pulse, NEUROLOGICAL: No focal deficit. Normal speech. gait not observed. PSYCHIATRIC: Cooperative. Good eye contact. Appropriate mood and affect. SKIN: Warm, dry, Laboratory Results - last 24 hr 12/13/18 12/13/18 12/13/18 05:45 05:45 07:33 WBC 5.7 RBC 4.37 Hgb 9.1 L Hct 29.3 L MCV 67.1 L MCH 20.7 L MCHC 30.9 L RDW 18.9 H Plt Count 202 MPV 8.4 Absolute Neuts (auto) 3.2 Neutrophils % 56.7 Lymphocytes % 32.2 Monocytes % 7.2 Eosinophils % 3.5 Basophils % 0.4 Nucleated RBC % 0 Sodium 141 Potassium 4.0 Chloride 91 L Carbon Dioxide > 45 H Anion Gap 5 L BUN 21.5 H Creatinine 0.8 Est GFR (CKD-EPI)AfAm 79.57 Est GFR (CKD-EPI)NonAf 68.66 POC Glucometer 101 Random Glucose 50 L Calcium 9.0 Magnesium 2.0 12/13/18 12/13/18 12/13/18 11:36 17:19 21:19 WBC RBC Hgb Hct MCV MCH MCHC RDW Plt Count MPV Absolute Neuts (auto) Neutrophils % Lymphocytes % Monocytes % Eosinophils % Basophils % Nucleated RBC % Sodium Potassium Chloride Carbon Dioxide Anion Gap BUN Creatinine Est GFR (CKD-EPI)AfAm Est GFR (CKD-EPI)NonAf POC Glucometer 135 225 166 Random Glucose Calcium Magnesium 12/14/18 05:57 WBC RBC Hgb Hct MCV MCH MCHC RDW Plt Count MPV Absolute Neuts (auto) Neutrophils % Lymphocytes % Monocytes % Eosinophils % Basophils % Nucleated RBC % Sodium Potassium Chloride Carbon Dioxide Anion Gap BUN Creatinine Est GFR (CKD-EPI)AfAm Est GFR (CKD-EPI)NonAf POC Glucometer 71 Random Glucose Calcium Magnesium Active Medications Generic Name Dose Route Start Last Admin Trade Name Freq PRN Reason Stop Dose Admin Al Hydroxide/Mg Hydroxide 30 ml 12/12/18 13:38 12/13/18 17:25 Mylanta Oral Suspension - PO 30 ml Q6H PRN Administration DYSPEPSIA Apixaban 5 mg 12/07/18 22:00 12/13/18 21:16 Eliquis - PO 5 mg BID RYANN Administration Atorvastatin Calcium 40 mg 12/07/18 22:00 12/13/18 21:17 Lipitor - PO 40 mg HS RYANN Administration Cefuroxime Axetil 500 mg 12/12/18 22:00 12/13/18 21:16 Ceftin - PO 12/17/18 10:01 500 mg BID RYANN Administration Docusate Sodium 100 mg 12/10/18 14:00 12/14/18 06:33 Colace - PO 100 mg TID RYANN Administration Furosemide 40 mg 12/11/18 09:30 12/14/18 06:33 Lasix Injection - IVPUSH 40 mg BID@0600,1400 RYANN Administration Insulin Aspart 1 vial 12/07/18 22:00 12/14/18 06:32 Novolog Vial Sliding Scale - SQ Not Given ACHS [facility] Protocol Insulin Detemir 15 units 12/13/18 22:00 12/13/18 21:20 Levemir Vial SQ 15 units HS RYANN Administration Levothyroxine Sodium 25 mcg 12/08/18 07:00 12/14/18 06:33 Synthroid - PO 25 mcg DAILY@0700 RYANN Administration Metoprolol Succinate 25 mg 12/08/18 10:00 12/13/18 09:17 Toprol Xl - PO 25 mg DAILY RYANN Administration Pantoprazole Sodium 40 mg 12/08/18 10:00 12/13/18 09:17 Protonix - PO 40 mg DAILY RYANN Administration Polyethylene Glycol 17 gm 12/10/18 10:00 12/13/18 21:17 Miralax (For Daily Use) - PO 17 grams BID RYANN Administration Senna 2 tab 12/10/18 22:00 12/13/18 21:17 Senna - PO 2 tab HS PRN Administration CONSTIPATION CBC, BMP 12/13/18 05:45 12/13/18 05:45 ASSESSMENT/PLAN: 83 year old female with a significant past medical history of COPD (trilogy machine), CHF, CAD/[place]/cath, Afib (on eliquis), Afib, HTN, HLD, Type 2 DM who presents to the ED via EMS with dyspnea on exertion.was found ti have fever 101, HR 110 and RLB atelectasis admitted for HPNA . # Sepsis 2/2 PNA , resolving * dry cough , RLB atelectsis , HR 110, Fever 101 on admission. * Perales cx negative Abx start Cefepim and Vanco to cover HPNA as pt recently discharged from hospital , DC vanco , resume cefepime per ID(completed 5 days ) , switch to cefuroxin 500 BID for more 7 days , * Penicillin allergy * BIPAP as needed # poly morpho NSVT * monitor on tele * increased lasix to 80 IV BID * will benifit from TAVR , transfer to tertiary facility upon dc # Acute on chronic CHF S/D * increase lasix IV push 50 BID daily due to worsening congestion on cxr and clinical exam * daily weight , I& O * CArdiology consult Dr Zapata * revaluate daily * CXR in AM with bibasilar congestion * LVEF 40 % # Mild hyperkalemia , resolved 4.2 repeat BMP no EKG changes # 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 # COPD cont Duoneb, Albuterol, Prednisone 10 mg po daily , BIPAP as needed # CAD/MN/ # AFIB on ELiquis 5 BID ,Toprol XL 25 po daily #HTN # HLD on Lipitor 40 daily # DM # HYpothyroidism: cont Synthroid # GERD : PPi 40 daily #FEN F: DC fluids E: monitor lytes N:low NA diabetic diet # Proph : Dvts : On Eliquis # Dispo: monitor on tele PT evaluation Visit type - Emergency Visit Emergency Visit: Yes ED Registration Date: 12/07/18 Care time: The patient presented to the Emergency Department on the above date and was hospitalized for further evaluation of their emergent condition. - New Patient This patient is new to me today: No - Critical Care Critical Care patient: No ATTENDING PHYSICIAN STATEMENT I saw and evaluated the patient. I reviewed the resident's note and discussed the case with the resident. I agree with the resident's findings and plan as documented. SUBJECTIVE: OBJECTIVE: ASSESSMENT AND PLAN:
[2018-12-14] MEDS ORDERED: PT OWN MED DRAWER 7, Y5N ONE ×2 (09:37→21:05)
[2018-12-14] MEDS: APIXABAN 5 MG TABLET PO SCH ×2 (09:39→21:29)
[2018-12-14] MEDS: PANTOPRAZOLE 40 MG TABLET (FP) PO SCH (09:39)
[2018-12-14] MEDS: CEFUROXIME AXETIL 500 MG TABLET PO SCH ×2 (09:39→21:30)
[2018-12-14] MEDS: metoPROLOL SUCCINATE 25 MG TAB.SR.24H (FP) PO SCH (09:39)
[2018-12-14] MEDS: POLYETHYLENE GLYCOL 3350 119 GM BTL PO SCH ×2 (09:40→21:35)
--- NOTE | 2018-12-14 10:12 | PN ---
Progress Note, Physician Chief Complaint: sob History of Present Illness: denies sob, cp, palpit, syncope no cigs - Current Medication List Current Medications: Active Medications Al Hydroxide/Mg Hydroxide (Mylanta Oral Suspension -) 30 ml PO Q6H PRN PRN Reason: DYSPEPSIA Last Admin: 12/13/18 17:25 Dose: 30 ml Apixaban (Eliquis -) 5 mg PO BID [facility] Last Admin: 12/14/18 09:39 Dose: 5 mg Atorvastatin Calcium (Lipitor -) 40 mg PO HS [facility] Last Admin: 12/13/18 21:17 Dose: 40 mg Cefuroxime Axetil (Ceftin -) 500 mg PO BID [facility] Stop: 12/17/18 10:01 Last Admin: 12/14/18 09:39 Dose: 500 mg Docusate Sodium (Colace -) 100 mg PO TID [facility] Last Admin: 12/14/18 06:33 Dose: 100 mg Furosemide (Lasix Injection -) 40 mg IVPUSH BID@0600,1400 [facility] Last Admin: 12/14/18 06:33 Dose: 40 mg Insulin Aspart (Novolog Vial Sliding Scale -) 1 vial SQ [facility]; Protocol Last Admin: 12/14/18 06:32 Dose: Not Given Insulin Detemir (Levemir Vial) 15 units SQ [facility] Last Admin: 12/13/18 21:20 Dose: 15 units Levothyroxine Sodium (Synthroid -) 25 mcg PO DAILY@0700 [facility] Last Admin: 12/14/18 06:33 Dose: 25 mcg Metoprolol Succinate (Toprol Xl -) 25 mg PO DAILY [facility] Last Admin: 12/14/18 09:39 Dose: 25 mg Pantoprazole Sodium (Protonix -) 40 mg PO DAILY [facility] Last Admin: 12/14/18 09:39 Dose: 40 mg Polyethylene Glycol (Miralax (For Daily Use) -) 17 gm PO BID [facility] Last Admin: 12/14/18 09:40 Dose: 17 grams Senna (Senna -) 2 tab PO HS PRN PRN Reason: CONSTIPATION Last Admin: 12/13/18 21:17 Dose: 2 tab - Objective Vital Signs: Vital Signs Temperature 98.3 F 12/14/18 06:00 Pulse Rate 63 12/14/18 06:00 Respiratory Rate 20 12/14/18 06:00 Blood Pressure 139/43 L 12/14/18 06:00 O2 Sat by Pulse Oximetry (%) 100 12/14/18 09:10 Constitutional: Yes: No Distress, Calm Eyes: No: Sclera Icterus HENT: No: Nasal Congestion Cardiovascular: Yes: Regular Rate and Rhythm (diminished sounds), Murmur (very soft LENNY rusb), S1, S2, Other (PMI non diplaced). No: JVD, Gallop Respiratory: Yes: CTA Bilaterally, Diminished (bases). No: Accessory Muscle Use , Rales, Wheezes Gastrointestinal: Yes: Normal Bowel Sounds, Soft. No: Tenderness Musculoskeletal: Yes: Other (No kyphosis) Extremities: No: Cold Edema: No Integumentary: No: Jaundice Neurological: Yes: Alert. No: Seizure Psychiatric: No: Agitated Labs: CBC, BMP 12/13/18 05:45 12/13/18 05:45 INR, PTT INR 1.62 (0.83-1.09) H 12/08/18 06:20 Assessment/Plan cath 11/22/18 LVEDP 28 mmHg (post nitro 20 mmHg). Mid MEB54-30% lesion; D1 ostial 70% lesion; mLAD and D1 stents are patent; ostial LCx 80-90% calcified lesion. No new significant lesion compared to the coronary angiogram done on 11/19/13. echo 11/21/18 MSH mild to mod LV dilation, moderately dec LV function EF 40%, hypokinesis of apical septum and apex, no thrombus with contrastr used, nl RV, severe peak V 2.5 m/s, peak/mean gradient 25/15 mmHg, USHA 0.69 cm2, DI 0.23, mild AR, mild MR CXR 12/09: congestive changes. bibasilar atx and fluid vs infiltrate tele: AF, brief run NSVT 6b A/P: 83 yr old lady with known CAD/pci, chf, HTN, HPL, DM, pad, obesity, pafib (dx when admitted for copd) here with shortness of breath due to acute on chronic combined systolic and diastolic CHF, ? PNA/a.e. copd PNA, a.e. copd - soft wheezing, observe on metoprolol - manage per primary, ID Elevated trop: - flat trend, indeterminate range, no ischemic changes - likely demand in setting of acute chf CAD: - s/p cath [place] [facility] with stable CAD: prior stents patent, obstructve LCX stenosis (SMALL vessel) and ostial D1 disease at bifurcation (? stent jailed)-- no intervention rec'd at that time. - awaiting review of cath films by interventional cardio re: ? revasc is feasible and rec'd, in light of ? PMVT (as disc'd below) - cont toprol, lipitor, eliquis Acute on chronic combined systolic and diastolic CHF: - EF 40% on most recent echo at [facility] [place] - cont metoprolol - no SKYLER/ARB (K > 6 with junctional bradycardic arrest 11/13) - 12/11 increased Lasix to 40mg IV BID. - 12/13: wt down 6 lbs in past few days, renal fxn stable. effusions at bases persist on exam. same lasix. - 12/14: yest CXR with increased effusions and congestion. renal fxn normal. increase lasix to 80 iv bid - monitor daily weights, Cr, lytes VTach: - 16 beat run on tele 12/12, ? polymorphic (not definitive). short run again after that, appears monomorphic - aggressive K/Mag repletion (>4/>2) - cont BB - reviewed with EP: given possible PMVT appearance, recommends consideration of revascularization, possibly stress test to guide decisions. will d/w interventional cardio Ao stenosis: - echo at [place] with USHA 0.69 but gradients in low-moderate range. ? was felt to be low-output/low-gradient severe vs only moderate. - these gradients ? do not qualify for TAVR given questionable benefits - reviewed [place] notes from 11/13 admit, AV workup decision tree not readily apparent from that. d/w'd TAVR at [place] who will review data and inform whether valve is felt to be hemodynamically significant and further assessment (SAVR vs TAVR) is indicated. AF: - sinus here - cont eliquis, toprol HLD - cont statin DM - manage per primary hypothyroidism - manage per primary HTN - bp reasonably controlled - cont home meds Anemia: -F/u H/H (close to recent baseline)
[2018-12-14] MEDS ORDERED: FUROSEMIDE 40 MG/4 ML INJECTABLE VIAL IVPUSH ONE (10:55)
--- NOTE | 2018-12-14 12:14 | PN ---
Teaching Attending Note Name of Resident: David Webster ATTENDING PHYSICIAN STATEMENT I saw and evaluated the patient. I reviewed the resident's note and discussed the case with the resident. I agree with the resident's findings and plan as documented with exceptions below. SUBJECTIVE: Patient seen and examined. breathing improved, no complaints. OBJECTIVE: Vital Signs Period Temp Pulse Resp BP Sys/Gardner Pulse Ox Last 24 Hr 97.8 F-99.3 F 63-76 17-20 126-151/43-59 97-100 Intake & Output 12/11/18 12/12/18 12/13/18 12/14/18 23:59 23:59 23:59 23:59 Intake Total 470 315 270 200 Balance 470 315 270 200 Weight 210 lb 12.8 oz 204 lb 9.6 oz General: lying in bed in no acute distress Neck: soft, supple CVS:S1S2 irregular Chest: decreased breath sounds at bases, basilar rales Abdomen:soft, obese, NT Extremities: 1+ pedal edema Home Medications Medication Instructions Recorded Insulin Lispro [Humalog] 0 unit SQ TIDCM PRN 03/02/14 Apixaban [Eliquis -] 5 mg PO BID #60 tablet 06/09/17 Insulin (Levemir) [Levemir Vial] 15 unit SQ HS 07/16/17 Furosemide [Lasix] 40 mg PO DAILY #30 tablet 07/20/17 Levothyroxine [Synthroid -] 25 mcg PO DAILY 10/27/17 Atorvastatin Ca [Lipitor] 40 mg PO HS #30 tablet 11/04/17 Pantoprazole Sodium [Protonix -] 40 mg PO DAILY #30 tablet.ec 11/04/17 Metoprolol Succinate [Toprol XL -] 25 mg PO DAILY 10/21/18 Albuterol 0.083% Nebulizer Nel 1 amp NEB Q4H PRN 90 Days #6 box 10/28/18 [Ventolin 0.083% Nebulizer Soln -] Nebulizer and Compressor [Portable 1 each MC BID #1 each 10/28/18 Nebulizer System] Prednisone 10 mg PO DAILY 11/20/18 Active Medications Al Hydroxide/Mg Hydroxide (Mylanta Oral Suspension -) 30 ml PO Q6H PRN PRN Reason: DYSPEPSIA Last Admin: 12/13/18 17:25 Dose: 30 ml Apixaban (Eliquis -) 5 mg PO BID [facility] Last Admin: 12/14/18 09:39 Dose: 5 mg Atorvastatin Calcium (Lipitor -) 40 mg PO HS [facility] Last Admin: 12/13/18 21:17 Dose: 40 mg Cefuroxime Axetil (Ceftin -) 500 mg PO BID [facility] Stop: 12/17/18 10:01 Last Admin: 12/14/18 09:39 Dose: 500 mg Docusate Sodium (Colace -) 100 mg PO TID [facility] Last Admin: 12/14/18 06:33 Dose: 100 mg Furosemide (Lasix Injection -) 80 mg IVPUSH BID@0600,1400 [facility] Insulin Aspart (Novolog Vial Sliding Scale -) 1 vial SQ [facility]; Protocol Last Admin: 12/14/18 06:32 Dose: Not Given Insulin Detemir (Levemir Vial) 15 units SQ [facility] Last Admin: 12/13/18 21:20 Dose: 15 units Levothyroxine Sodium (Synthroid -) 25 mcg PO DAILY@0700 [facility] Last Admin: 12/14/18 06:33 Dose: 25 mcg Metoprolol Succinate (Toprol Xl -) 25 mg PO DAILY [facility] Last Admin: 12/14/18 09:39 Dose: 25 mg Pantoprazole Sodium (Protonix -) 40 mg PO DAILY [facility] Last Admin: 12/14/18 09:39 Dose: 40 mg Polyethylene Glycol (Miralax (For Daily Use) -) 17 gm PO BID [facility] Last Admin: 12/14/18 09:40 Dose: 17 grams Senna (Senna -) 2 tab PO HS PRN PRN Reason: CONSTIPATION Last Admin: 12/13/18 21:17 Dose: 2 tab Laboratory Results - last 24 hr 12/13/18 12/13/18 12/14/18 17:19 21:19 05:57 POC Glucometer 225 166 71 Microbiology 12/07/18 12:40 Blood - Peripheral Venous Blood Culture - Final NO GROWTH AFTER 5 DAYS INCUBATION 12/07/18 12:15 Blood - Peripheral Venous Blood Culture - Final NO GROWTH AFTER 5 DAYS INCUBATION 12/07/18 12:50 Urine - Urine - Catheterized Urine Culture - Final NO GROWTH OBTAINED 12/07/18 17:37 Urine For Antigen Detection Legionella Antigen - Final 12/07/18 17:37 Urine For Antigen Detection Streptococcus pneumoniae Antigen (M - Final ASSESSMENT AND PLAN: 83 yof with PMHx of COPD (on trilogy), CAD, chronic systolic heart failure, Afib on eliquis, HTN, HLD, type II DM, recurrent recent admissions with COPD/ CHF in 09/2018, then cardiogenic shock/CO/CHF, transferred [place] [facility] [place]p Cath with non obstructive CAD/severe , admitted with dyspnea, dry cough. -Acute on chronic systolic heart failure exacerbation-Acute hypoxic/ hypercapneic respiratory failure -Acute RLL HCAP (r/o gm neg PNA) with sepsis -Severe -Afib on eliquis -HTN -HLD -Type II DM Plan: CXR worse, cardiology input noted. lasix increased 80 mg IV bid. ?Polymorphic NSVT on 12/12, follow up with cardiology for additional intervention. Recurrent admissions with volume overload, recent cardiac cath at [facility] [place] with reported severe . s/p 5 days of cefepime, ID input noted, cefuroxime 500 mg BID for total 7 day course. Off prednisone taper from recent admit. Bipap prn. Continue eliquis/metoprolol/statin DVTPPX on eliquis Palliative care input to address overall goals of care Discussed with nursing and patient, all questions answered.
[2018-12-14] MEDS ORDERED: INSULIN (LEVEMIR) 100 UNITS/ML UNITS SQ SCH (18:01)
[2018-12-14] MEDS: ATORVASTATIN CA 40 MG TABLET (FP) PO SCH (21:30)
[2018-12-14] MEDS: INSULIN (LEVEMIR) 100 UNITS/ML UNITS SQ SCH (23:39)
[2018-12-15] MEDS: LEVOTHYROXINE NA 25 MCG TABLET (FP) PO SCH (06:33)
[2018-12-15] MEDS: DOCUSATE SODIUM 100 MG CAPSULE (FP) PO SCH ×3 (06:33→22:01)
[2018-12-15] MEDS: INSULIN SLIDING SCALE (NOVOLOG) 1 VIAL SQ SCH ×4 (06:34→22:03)
[2018-12-15] MEDS: FUROSEMIDE 40 MG/4 ML INJECTABLE VIAL IVPUSH SCH ×2 (06:34→15:12)
[2018-12-15 06:51] LABS: BASO % 0.8 % (0-2.0); EOS % 5.1 % (0-4.5); HEMATOCRIT 29.9 % (32.4-45.2); HEMOGLOBIN 9.4 GM/dL (10.7-15.3); LYMPH % 31.5 % (8-40); MCH 20.9 pg (25.7-33.7); MCHC 31.5 g/dl (32.0-36.0); MEAN CELL VOLUME 66.4 fl (80-96); MEAN PLT VOLUME 8.4 fl (7.5-11.1); MONO % 5.8 % (3.8-10.2); NEUT % 56.8 % (42.8-82.8); PLATELET COUNT 194 K/MM3 (134-434); RBC 4.51 M/mm3 (3.60-5.2); WHITE BLOOD COUNT 4.9 K/mm3 (4.0-10.0)
[2018-12-15 07:20] LABS: ALBUMIN 3.1 g/dl (3.4-5.0); ALK PHOS 66 U/L (45-117); ANION GAP 9 MMOL/L (8-16); BILIRUBIN,TOTAL 1.4 mg/dL (0.2-1); BLOOD UREA NITROGEN 24.3 mg/dL (7-18); CALCIUM 9.5 mg/dL (8.5-10.1); CHLORIDE 85 mmol/L (98-107); CO2 > 45 mmol/L (21-32); CREATININE 0.9 mg/dL (0.55-1.3); GLUCOSE,RANDOM 146 mg/dL (74-106); MAGNESIUM 2.2 mg/dL (1.8-2.4); PHOSPHOROUS 3.2 mg/dL (2.5-4.9); POTASSIUM 4.6 mmol/L (3.5-5.1); SGOT/AST 24 U/L (15-37); SGPT/ALT 17 U/L (13-61); SODIUM 139 mmol/L (136-145); TOT PROT 7.2 g/dl (6.4-8.2)
--- NOTE | 2018-12-15 07:27 | PN ---
Physical Exam: SUBJECTIVE: Patient seen and examined on BIPAP over night no acute events breathing better and cough improved , Had BM yesterday OBJECTIVE: Vital Signs Period Temp Pulse Resp BP Sys/Gardner Pulse Ox Last 24 Hr 98 F-98.5 F 67-81 17-20 102-154/47-68 99-100 GENERAL: AAOx3 in NAD , obese lady on 3 L NC , HEAD: NC/AT EYES:, Conjunctiva clear, sclera anicteric ENT: moist mucous membrane NECK: Supple, no JVD LUNGS:decrease breath sounds at the bases , bibasilar rales HEART: AFIB, normal s1, s2, murmur no M/R/G ABDOMEN: Obese Soft, ND, NT, +BS 4 Q, no CVA Tenderness, toscano in place LOWER EXTREMITIES: No edema, +2DP pulse, NEUROLOGICAL: No focal deficit. Normal speech. gait not observed. PSYCHIATRIC: Cooperative. Good eye contact. Appropriate mood and affect. SKIN: Warm, dry, Laboratory Results - last 24 hr 12/14/18 12/14/18 12/14/18 12:41 17:51 21:19 WBC RBC Hgb Hct MCV MCH MCHC RDW Plt Count MPV Absolute Neuts (auto) Neutrophils % Lymphocytes % Monocytes % Eosinophils % Basophils % Nucleated RBC % Sodium Potassium Chloride Carbon Dioxide Anion Gap BUN Creatinine Est GFR (CKD-EPI)AfAm Est GFR (CKD-EPI)NonAf POC Glucometer 156 159 160 Random Glucose Calcium Phosphorus Magnesium Total Bilirubin AST ALT Alkaline Phosphatase Total Protein Albumin 12/15/18 12/15/18 12/15/18 05:19 05:42 05:42 WBC 4.9 RBC 4.51 Hgb 9.4 L Hct 29.9 L MCV 66.4 L MCH 20.9 L MCHC 31.5 L RDW 19.0 H Plt Count 194 MPV 8.4 Absolute Neuts (auto) 2.7 Neutrophils % 56.8 Lymphocytes % 31.5 Monocytes % 5.8 Eosinophils % 5.1 H Basophils % 0.8 Nucleated RBC % 0 Sodium 139 Potassium 4.6 Chloride 85 L Carbon Dioxide > 45 H Anion Gap 9 BUN 24.3 H Creatinine 0.9 Est GFR (CKD-EPI)AfAm 69.01 Est GFR (CKD-EPI)NonAf 59.55 POC Glucometer 153 Random Glucose 146 H Calcium 9.5 Phosphorus 3.2 Magnesium 2.2 Total Bilirubin 1.4 H AST 24 ALT 17 Alkaline Phosphatase 66 Total Protein 7.2 Albumin 3.1 L Active Medications Generic Name Dose Route Start Last Admin Trade Name Javedq PRN Reason Stop Dose Admin Al Hydroxide/Mg Hydroxide 30 ml 12/12/18 13:38 12/13/18 17:25 Mylanta Oral Suspension - PO 30 ml Q6H PRN Administration DYSPEPSIA Apixaban 5 mg 12/07/18 22:00 12/14/18 21:29 Eliquis - PO 5 mg BID RYANN Administration Atorvastatin Calcium 40 mg 12/07/18 22:00 12/14/18 21:30 Lipitor - PO 40 mg HS RYANN Administration Cefuroxime Axetil 500 mg 12/12/18 22:00 12/14/18 21:30 Ceftin - PO 12/17/18 10:01 500 mg BID RYANN Administration Docusate Sodium 100 mg 12/10/18 14:00 12/15/18 06:33 Colace - PO 100 mg TID RYANN Administration Furosemide 80 mg 12/14/18 10:15 12/15/18 06:34 Lasix Injection - IVPUSH 80 mg BID@0600,1400 RYANN Administration Insulin Aspart 1 vial 12/07/18 22:00 12/15/18 06:34 Novolog Vial Sliding Scale - SQ 2 units ACHS RYANN Administration Protocol Insulin Detemir 10 units 12/14/18 22:00 12/14/18 23:39 Levemir Vial SQ 10 units HS RYANN Administration Levothyroxine Sodium 25 mcg 12/08/18 07:00 12/15/18 06:33 Synthroid - PO 25 mcg DAILY@0700 RYANN Administration Metoprolol Succinate 25 mg 12/08/18 10:00 12/14/18 09:39 Toprol Xl - PO 25 mg DAILY RYANN Administration Pantoprazole Sodium 40 mg 12/08/18 10:00 12/14/18 09:39 Protonix - PO 40 mg DAILY RYANN Administration Polyethylene Glycol 17 gm 12/10/18 10:00 12/14/18 21:35 Miralax (For Daily Use) - PO 17 grams BID RYANN Administration Senna 2 tab 12/10/18 22:00 12/13/18 21:17 Senna - PO 2 tab HS PRN Administration CONSTIPATION CBC, BMP 12/15/18 05:42 12/15/18 05:42 ASSESSMENT/PLAN: 83 year old female with a significant past medical history of COPD (trilogy machine), CHF, CAD/[place]/cath, Afib (on eliquis), Afib, HTN, HLD, Type 2 DM who presents to the ED via EMS with dyspnea on exertion.was found ti have fever 101, HR 110 and RLB atelectasis admitted for HPNA . # Sepsis 2/2 PNA , resolving * dry cough , RLB atelectsis , HR 110, Fever 101 on admission. * Perales cx negative Abx start Cefepim and Vanco to cover HPNA as pt recently discharged from hospital , DC vanco , resume cefepime per ID(completed 5 days ) , switch to cefuroxin 500 BID for more 7 days , * Penicillin allergy * BIPAP as needed and over night # poly morpho NSVT * monitor on tele * increased lasix to 80 IV BID * will benefit from TAVR , transfer to tertiary facility upon dc # Acute on chronic CHF S/D * increase lasix IV push 80 BID daily due to worsening congestion on cxr and clinical exam * daily weight , I& O * Cardiology consulted Dr Zapata * revaluate daily * CXR in AM with bi basilar congestion * LVEF 40 % # Mild hyperkalemia , resolved 4.2 repeat BMP no EKG changes # 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 # COPD cont Duoneb, Albuterol, Prednisone 10 mg po daily , BIPAP as needed # CAD/HI/ # AFIB on ELiquis 5 BID ,Toprol XL 25 po daily #HTN # HLD on Lipitor 40 daily # DM # HYpothyroidism: cont Synthroid # GERD : PPi 40 daily #FEN F: DC fluids E: monitor lytes N:low NA diabetic diet # Proph : Dvts : On Eliquis # Dispo: monitor on tele PT evaluation walk 3 steps with shufling gait Visit type - Emergency Visit Emergency Visit: Yes ED Registration Date: 12/07/18 Care time: The patient presented to the Emergency Department on the above date and was hospitalized for further evaluation of their emergent condition. - New Patient This patient is new to me today: No - Critical Care Critical Care patient: No ATTENDING PHYSICIAN STATEMENT I saw and evaluated the patient. I reviewed the resident's note and discussed the case with the resident. I agree with the resident's findings and plan as documented. SUBJECTIVE: OBJECTIVE: ASSESSMENT AND PLAN:
[2018-12-15 08:13] LABS: ARTERIAL BLD GAS O2 SATURATION 99.3 % (95-98); ARTERIAL BLOOD GAS BASE EXCESS 20.8 meq/l (-2-2); ARTERIAL BLOOD GAS PO2 134 mmHg (80-105); ARTERIAL BLOOD GAS pH 7.44 (7.35-7.45)
[2018-12-15 08:22] LABS: ALLENS TEST POSITIVE; ARTERIAL BLOOD GAS PCO2 72.3 mmHg (35-45)
--- NOTE | 2018-12-15 10:07 | PN ---
Teaching Attending Note Name of Resident: David Webster ATTENDING PHYSICIAN STATEMENT I saw and evaluated the patient. I reviewed the resident's note and discussed the case with the resident. I agree with the resident's findings and plan as documented with exceptions below. SUBJECTIVE: patient seen and examined. breathing improved, no pain or concerns today, overall feels better. OBJECTIVE: Vital Signs Period Temp Pulse Resp BP Sys/Gardner Pulse Ox Last 24 Hr 98 F-98.5 F 67-81 18-20 102-154/50-68 99 Intake & Output 12/12/18 12/13/18 12/14/18 12/15/18 23:59 23:59 23:59 23:59 Intake Total 315 270 900 200 Balance 315 270 900 200 Weight 204 lb 9.6 oz 202 lb General: sitting in chair in no acute distress Chest: bibasilar rales, improved air entry Abdomen:soft, obese, NT Extremities: trace pedal edema Home Medications Medication Instructions Recorded Insulin Lispro [Humalog] 0 unit SQ TIDCM PRN 03/02/14 Apixaban [Eliquis -] 5 mg PO BID #60 tablet 06/09/17 Insulin (Levemir) [Levemir Vial] 15 unit SQ HS 07/16/17 Furosemide [Lasix] 40 mg PO DAILY #30 tablet 07/20/17 Levothyroxine [Synthroid -] 25 mcg PO DAILY 10/27/17 Atorvastatin Ca [Lipitor] 40 mg PO HS #30 tablet 11/04/17 Pantoprazole Sodium [Protonix -] 40 mg PO DAILY #30 tablet.ec 11/04/17 Metoprolol Succinate [Toprol XL -] 25 mg PO DAILY 10/21/18 Albuterol 0.083% Nebulizer Nel 1 amp NEB Q4H PRN 90 Days #6 box 10/28/18 [Ventolin 0.083% Nebulizer Soln -] Nebulizer and Compressor [Portable 1 each MC BID #1 each 10/28/18 Nebulizer System] Prednisone 10 mg PO DAILY 11/20/18 Active Medications Al Hydroxide/Mg Hydroxide (Mylanta Oral Suspension -) 30 ml PO Q6H PRN PRN Reason: DYSPEPSIA Last Admin: 12/13/18 17:25 Dose: 30 ml Apixaban (Eliquis -) 5 mg PO BID RYANN Last Admin: 12/14/18 21:29 Dose: 5 mg Atorvastatin Calcium (Lipitor -) 40 mg PO HS REPLACED BY [facility] Last Admin: 12/14/18 21:30 Dose: 40 mg Cefuroxime Axetil (Ceftin -) 500 mg PO BID REPLACED BY [facility] Stop: 12/17/18 10:01 Last Admin: 12/14/18 21:30 Dose: 500 mg Docusate Sodium (Colace -) 100 mg PO TID REPLACED BY [facility] Last Admin: 12/15/18 06:33 Dose: 100 mg Furosemide (Lasix Injection -) 80 mg IVPUSH BID@0600,1400 REPLACED BY [facility] Last Admin: 12/15/18 06:34 Dose: 80 mg Insulin Aspart (Novolog Vial Sliding Scale -) 1 vial SQ [facility] REPLACED BY [facility]; Protocol Last Admin: 12/15/18 06:34 Dose: 2 units Insulin Detemir (Levemir Vial) 10 units SQ [facility] Last Admin: 12/14/18 23:39 Dose: 10 units Levothyroxine Sodium (Synthroid -) 25 mcg PO DAILY@0700 REPLACED BY [facility] Last Admin: 12/15/18 06:33 Dose: 25 mcg Metoprolol Succinate (Toprol Xl -) 25 mg PO DAILY REPLACED BY [facility] Last Admin: 12/14/18 09:39 Dose: 25 mg Pantoprazole Sodium (Protonix -) 40 mg PO DAILY REPLACED BY [facility] Last Admin: 12/14/18 09:39 Dose: 40 mg Polyethylene Glycol (Miralax (For Daily Use) -) 17 gm PO BID REPLACED BY [facility] Last Admin: 12/14/18 21:35 Dose: 17 grams Senna (Senna -) 2 tab PO HS PRN PRN Reason: CONSTIPATION Last Admin: 12/13/18 21:17 Dose: 2 tab Laboratory Results - last 24 hr 12/14/18 12/14/18 12/14/18 12:41 17:51 21:19 WBC RBC Hgb Hct MCV MCH MCHC RDW Plt Count MPV Absolute Neuts (auto) Neutrophils % Lymphocytes % Monocytes % Eosinophils % Basophils % Nucleated RBC % Puncture Site ABG pH ABG pCO2 at Pt Temp ABG pO2 at Pt Temp ABG HCO3 ABG O2 Sat (Measured) ABG O2 Content ABG Base Excess Krishan Test Oxygen Flow Rate Sodium Potassium Chloride Carbon Dioxide Anion Gap BUN Creatinine Est GFR (CKD-EPI)AfAm Est GFR (CKD-EPI)NonAf POC Glucometer 156 159 160 Random Glucose Calcium Phosphorus Magnesium Total Bilirubin AST ALT Alkaline Phosphatase Total Protein Albumin 12/15/18 12/15/18 12/15/18 05:19 05:42 05:42 WBC 4.9 RBC 4.51 Hgb 9.4 L Hct 29.9 L MCV 66.4 L MCH 20.9 L MCHC 31.5 L RDW 19.0 H Plt Count 194 MPV 8.4 Absolute Neuts (auto) 2.7 Neutrophils % 56.8 Lymphocytes % 31.5 Monocytes % 5.8 Eosinophils % 5.1 H Basophils % 0.8 Nucleated RBC % 0 Puncture Site ABG pH ABG pCO2 at Pt Temp ABG pO2 at Pt Temp ABG HCO3 ABG O2 Sat (Measured) ABG O2 Content ABG Base Excess Krishan Test Oxygen Flow Rate Sodium 139 Potassium 4.6 Chloride 85 L Carbon Dioxide > 45 H Anion Gap 9 BUN 24.3 H Creatinine 0.9 Est GFR (CKD-EPI)AfAm 69.01 Est GFR (CKD-EPI)NonAf 59.55 POC Glucometer 153 Random Glucose 146 H Calcium 9.5 Phosphorus 3.2 Magnesium 2.2 Total Bilirubin 1.4 H AST 24 ALT 17 Alkaline Phosphatase 66 Total Protein 7.2 Albumin 3.1 L 12/15/18 08:05 WBC RBC Hgb Hct MCV MCH MCHC RDW Plt Count MPV Absolute Neuts (auto) Neutrophils % Lymphocytes % Monocytes % Eosinophils % Basophils % Nucleated RBC % Puncture Site Left radial ABG pH 7.44 ABG pCO2 at Pt Temp 72.3 H* ABG pO2 at Pt Temp 134 H ABG HCO3 48.3 H ABG O2 Sat (Measured) 99.3 H ABG O2 Content 13.9 L ABG Base Excess 20.8 H Krishan Test Positive Oxygen Flow Rate 4l Sodium Potassium Chloride Carbon Dioxide Anion Gap BUN Creatinine Est GFR (CKD-EPI)AfAm Est GFR (CKD-EPI)NonAf POC Glucometer Random Glucose Calcium Phosphorus Magnesium Total Bilirubin AST ALT Alkaline Phosphatase Total Protein Albumin Microbiology 12/07/18 12:40 Blood - Peripheral Venous Blood Culture - Final NO GROWTH AFTER 5 DAYS INCUBATION 12/07/18 12:15 Blood - Peripheral Venous Blood Culture - Final NO GROWTH AFTER 5 DAYS INCUBATION 12/07/18 12:50 Urine - Urine - Catheterized Urine Culture - Final NO GROWTH OBTAINED 12/07/18 17:37 Urine For Antigen Detection Legionella Antigen - Final 12/07/18 17:37 Urine For Antigen Detection Streptococcus pneumoniae Antigen (M - Final ASSESSMENT AND PLAN: 83 yof with PMHx of COPD (on trilogy), CAD, chronic systolic heart failure, Afib on eliquis, HTN, HLD, type II DM, recurrent recent admissions with COPD/ CHF in 09/2018, then cardiogenic shock/OR/CHF, transferred to [facility] s/p Cath with non obstructive CAD/severe , admitted with dyspnea, dry cough. -Acute on chronic systolic heart failure exacerbation-Acute hypoxic/ hypercapneic respiratory failure -Acute RLL HCAP (r/o gm neg PNA) with sepsis -Metabolic alkalosis, suspect contraction alkalosis from lasix+respiratory compensation for chronic respiratory acidosis -Severe -Afib on eliquis -HTN -HLD -Type II DM Plan: Volume status improving. repeat CXR. lasix 80 mg IV BId Bicarb rising, ABG noted. Monitor for now. Nighttime bipap. ?Polymorphic NSVT on 12/12, follow up with cardiology for additional intervention. Recurrent admissions with volume overload, recent cardiac cath at [facility] with reported severe . Follow up if candidate for TAVR. s/p 5 days of cefepime, ID input noted, cefuroxime 500 mg BID for total 7 day course, dc today. Off prednisone taper from recent admit. Bipap prn. Continue eliquis/metoprolol/statin DVTPPX on eliquis OOB, PT eval Palliative care input to address overall goals of care pending cardiology input if candidate for intervention for severe . Discussed with nursing, patient and social work, all questions answered.
--- NOTE | 2018-12-15 11:46 | PN ---
Progress Note (short form) - Note Progress Note: no cp, palps, dizziness, dyspnea Current Medications Al Hydroxide/Mg Hydroxide (Mylanta Oral Suspension -) 30 ml PO Q6H PRN PRN Reason: DYSPEPSIA Last Admin: 12/13/18 17:25 Dose: 30 ml Apixaban (Eliquis -) 5 mg PO BID [facility] Last Admin: 12/14/18 21:29 Dose: 5 mg Atorvastatin Calcium (Lipitor -) 40 mg PO HS [facility] Last Admin: 12/14/18 21:30 Dose: 40 mg Cefuroxime Axetil (Ceftin -) 500 mg PO BID [facility] Stop: 12/17/18 10:01 Last Admin: 12/14/18 21:30 Dose: 500 mg Docusate Sodium (Colace -) 100 mg PO TID [facility] Last Admin: 12/15/18 06:33 Dose: 100 mg Furosemide (Lasix Injection -) 80 mg IVPUSH BID@0600,1400 [facility] Last Admin: 12/15/18 06:34 Dose: 80 mg Insulin Aspart (Novolog Vial Sliding Scale -) 1 vial SQ [facility]; Protocol Last Admin: 12/15/18 06:34 Dose: 2 units Insulin Detemir (Levemir Vial) 10 units SQ [facility] Last Admin: 12/14/18 23:39 Dose: 10 units Levothyroxine Sodium (Synthroid -) 25 mcg PO DAILY@0700 [facility] Last Admin: 12/15/18 06:33 Dose: 25 mcg Metoprolol Succinate (Toprol Xl -) 25 mg PO DAILY [facility] Last Admin: 12/14/18 09:39 Dose: 25 mg Pantoprazole Sodium (Protonix -) 40 mg PO DAILY [facility] Last Admin: 12/14/18 09:39 Dose: 40 mg Polyethylene Glycol (Miralax (For Daily Use) -) 17 gm PO BID [facility] Last Admin: 12/14/18 21:35 Dose: 17 grams Senna (Senna -) 2 tab PO HS PRN PRN Reason: CONSTIPATION Last Admin: 12/13/18 21:17 Dose: 2 tab Vital Signs Period Temp Pulse Resp BP Sys/Gardner Pulse Ox Last 24 Hr 98 F-98.5 F 67-81 18-20 102-154/50-68 97-99 Constitutional: Yes: No Distress, Calm Eyes: No: Sclera Icterus HENT: No: Nasal Congestion Cardiovascular: Yes: Regular Rate and Rhythm (diminished sounds), Murmur (very soft LENNY rusb), S1, S2, Other (PMI non diplaced). No: JVD, Gallop Respiratory: Yes: CTA Bilaterally, Diminished (bases). No: Accessory Muscle Use , Rales, Wheezes Gastrointestinal: Yes: Normal Bowel Sounds, Soft. No: Tenderness Musculoskeletal: Yes: Other (No kyphosis) Extremities: No: Cold Edema: No Integumentary: No: Jaundice Neurological: Yes: Alert. No: Seizure Psychiatric: No: Agitated Assessment/Plan cath 11/22/18 LVEDP 28 mmHg (post nitro 20 mmHg). Mid ZEU13-17% lesion; D1 ostial 70% lesion; mLAD and D1 stents are patent; ostial LCx 80-90% calcified lesion. No new significant lesion compared to the coronary angiogram done on 11/19/13. echo 11/21/18 [facility] mild to mod LV dilation, moderately dec LV function EF 40%, hypokinesis of apical septum and apex, no thrombus with contrastr used, nl RV, severe peak V 2.5 m/s, peak/mean gradient 25/15 mmHg, USHA 0.69 cm2, DI 0.23, mild AR, mild MR CXR 12/09: congestive changes. bibasilar atx and fluid vs infiltrate tele: AF, PVCs A/P: 83 yr old lady with known CAD/pci, chf, HTN, HPL, DM, pad, obesity, pafib (dx when admitted for copd) here with shortness of breath due to acute on chronic combined systolic and diastolic CHF, ? PNA/a.e. copd PNA, a.e. copd - soft wheezing, observe on metoprolol - manage per primary, ID Elevated trop: - flat trend, indeterminate range, no ischemic changes - likely demand in setting of acute chf CAD: - s/p cath at [facility] 10/2018 with stable CAD: prior stents patent, obstructve LCX stenosis (SMALL vessel) and ostial D1 disease at bifurcation (? stent jailed)-- no intervention rec'd at that time. - awaiting review of cath films by interventional cardio re: ? revasc is feasible and rec'd, in light of ? PMVT (as disc'd below) - cont toprol, lipitor, eliquis Acute on chronic combined systolic and diastolic CHF: - EF 40% on most recent echo at [facility] - cont metoprolol - no SKYLER/ARB (K > 6 with junctional bradycardic arrest 11/13) - 12/11 increased Lasix to 40mg IV BID, inc to 80 mg IV BID on 12/14 for increased congestion on CXR - continue lasix 80 mg IV BID - monitor daily weights, Cr, lytes VTach: - 16 beat run on tele 12/12, ? polymorphic (not definitive). short run again after that, appears monomorphic - aggressive K/Mag repletion (>4/>2) - cont BB - per Dr. Zapata reviewed with EP: given possible PMVT appearance, recommends consideration of revascularization, possibly stress test to guide decisions Ao stenosis: - echo at [facility] with USHA 0.69 but gradients in low-moderate range. ? was felt to be low-output/low-gradient severe vs only moderate. - these gradients ? do not qualify for TAVR given questionable benefits - per Dr. Zapata: case d/w'd dr mccracken (interventional cardio [facility]), who reviewed 11/13 [facility] cath films and echo. no ischemia-producing coronary lesions that are technically feasible for revascularization, pt is a candidate for TAVR, which also may help EF improve. - continue diuresis, when patient closer to euvolemic will d/w family if willing to have repeat transfer to [facility] for inpatient TAVR eval (vs outpt eval reasonable if she has good clinical course here) AF: - sinus here - cont eliquis, toprol HLD - cont statin DM - manage per primary hypothyroidism - manage per primary HTN - bp reasonably controlled - cont home meds Anemia: -F/u H/H (close to recent baseline)
[2018-12-15] MEDS ORDERED: PT OWN MED DRAWER 7, Y5N ONE ×2 (11:47→21:05)
[2018-12-15] MEDS: PANTOPRAZOLE 40 MG TABLET (FP) PO SCH (11:48)
[2018-12-15] MEDS: metoPROLOL SUCCINATE 25 MG TAB.SR.24H (FP) PO SCH (11:48)
[2018-12-15] MEDS: CEFUROXIME AXETIL 500 MG TABLET PO SCH ×2 (11:48→22:02)
[2018-12-15] MEDS: APIXABAN 5 MG TABLET PO SCH ×2 (11:48→22:02)
[2018-12-15] MEDS: POLYETHYLENE GLYCOL 3350 119 GM BTL PO SCH ×2 (11:52→22:01)
[2018-12-15 12:27] LABS: ANISOCYTOSIS 1+; MACROCYTOSIS 0; OVALOCYTE 1+; PLATELET ESTIMATE NORMAL; TARGET CELLS 1+
[2018-12-15 19:05] VITALS: BMI 40.8
[2018-12-15] MEDS: ATORVASTATIN CA 40 MG TABLET (FP) PO SCH (22:02)
[2018-12-15] MEDS: INSULIN (LEVEMIR) 100 UNITS/ML UNITS SQ SCH (22:03)
--- NOTE | 2018-12-16 05:20 | HOSP ---
Subjective - Review of Symptoms Events since last encounter: IV access lost in patient overnight. Multiple attempts were made to regain access without success. Discussed with pharmacy and will give one time 120mg po to not exceed maximum po dosing. Will alert day team. Physical Examination Vital Signs: Vital Signs Temperature 98.7 F 12/16/18 02:00 Pulse Rate 73 12/16/18 02:00 Respiratory Rate 20 12/16/18 02:00 Blood Pressure 119/56 L 12/16/18 02:00 O2 Sat by Pulse Oximetry (%) 100 12/15/18 21:00 Labs: CBC, BMP 12/15/18 05:42 12/15/18 05:42
[2018-12-16] MEDS: FUROSEMIDE 40 MG/4 ML INJECTABLE VIAL IVPUSH SCH ×2 (05:57→14:35)
[2018-12-16] MEDS ORDERED: FUROSEMIDE 40 MG TABLET (FP) PO ONE (06:00)
[2018-12-16] MEDS: INSULIN SLIDING SCALE (NOVOLOG) 1 VIAL SQ SCH ×4 (06:00→21:34)
[2018-12-16] MEDS: DOCUSATE SODIUM 100 MG CAPSULE (FP) PO SCH ×3 (06:05→21:34)
[2018-12-16] MEDS: LEVOTHYROXINE NA 25 MCG TABLET (FP) PO SCH (06:08)
--- NOTE | 2018-12-16 07:49 | PN ---
Physical Exam: SUBJECTIVE: Patient seen and examined on BIPAP over night no acute events breathing better and cough improved , Had BM yesterday nursed found difficult to get an access on her. OBJECTIVE: Vital Signs Period Temp Pulse Resp BP Sys/Gardner Pulse Ox Last 24 Hr 98.3 F-98.7 F 65-73 18-22 113-145/50-64 97-100 GENERAL: AAOx3 in NAD , obese lady on 3 L NC , HEAD: NC/AT EYES:, Conjunctiva clear, sclera anicteric ENT: moist mucous membrane NECK: Supple, no JVD LUNGS:decrease breath sounds at the bases , bibasilar rales HEART: AFIB, normal s1, s2, murmur no M/R/G ABDOMEN: Obese Soft, ND, NT, +BS 4 Q, no CVA Tenderness, toscano in place LOWER EXTREMITIES: No edema, +2DP pulse, NEUROLOGICAL: No focal deficit. Normal speech. gait not observed. PSYCHIATRIC: Cooperative. Good eye contact. Appropriate mood and affect. SKIN: Warm, dry, Laboratory Results - last 24 hr 12/15/18 12/15/18 12/15/18 05:42 08:05 12:00 Hypochromia 1+ Platelet Estimate Normal Polychromasia 0 Poikilocytosis 1+ Anisocytosis 1+ Microcytosis 1+ Macrocytosis 0 Target Cells 1+ Ovalocytes 1+ Acanthocytes (Spur) 1+ Puncture Site Left radial ABG pH 7.44 ABG pCO2 at Pt Temp 72.3 H* ABG pO2 at Pt Temp 134 H ABG HCO3 48.3 H ABG O2 Sat (Measured) 99.3 H ABG O2 Content 13.9 L ABG Base Excess 20.8 H Krishan Test Positive Oxygen Flow Rate 4l POC Glucometer 137 12/15/18 12/15/18 12/16/18 17:58 20:15 05:59 Hypochromia Platelet Estimate Polychromasia Poikilocytosis Anisocytosis Microcytosis Macrocytosis Target Cells Ovalocytes Acanthocytes (Spur) Puncture Site ABG pH ABG pCO2 at Pt Temp ABG pO2 at Pt Temp ABG HCO3 ABG O2 Sat (Measured) ABG O2 Content ABG Base Excess Krishan Test Oxygen Flow Rate POC Glucometer 235 248 126 Active Medications Generic Name Dose Route Start Last Admin Trade Name Freq PRN Reason Stop Dose Admin Al Hydroxide/Mg Hydroxide 30 ml 12/12/18 13:38 12/13/18 17:25 Mylanta Oral Suspension - PO 30 ml Q6H PRN Administration DYSPEPSIA Apixaban 5 mg 12/07/18 22:00 12/15/18 22:02 Eliquis - PO 5 mg BID RYANN Administration Atorvastatin Calcium 40 mg 12/07/18 22:00 12/15/18 22:02 Lipitor - PO 40 mg HS RYANN Administration Cefuroxime Axetil 500 mg 12/12/18 22:00 12/15/18 22:02 Ceftin - PO 12/17/18 10:01 500 mg BID RYANN Administration Docusate Sodium 100 mg 12/10/18 14:00 12/16/18 06:05 Colace - PO Not Given TID RYANN Furosemide 80 mg 12/14/18 10:15 12/16/18 05:57 Lasix Injection - IVPUSH Not Given BID@0600,1400 [facility] Insulin Aspart 1 vial 12/07/18 22:00 12/16/18 06:00 Novolog Vial Sliding Scale - SQ Not Given ACHS [facility] Protocol Insulin Detemir 10 units 12/14/18 22:00 12/15/18 22:03 Levemir Vial SQ 10 units HS [facility] Administration Levothyroxine Sodium 25 mcg 12/08/18 07:00 12/16/18 06:08 Synthroid - PO 25 mcg DAILY@0700 [facility] Administration Metoprolol Succinate 25 mg 12/08/18 10:00 12/15/18 11:48 Toprol Xl - PO 25 mg DAILY RYANN Administration Pantoprazole Sodium 40 mg 12/08/18 10:00 12/15/18 11:48 Protonix - PO 40 mg DAILY [facility] Administration Polyethylene Glycol 17 gm 12/10/18 10:00 12/15/18 22:01 Miralax (For Daily Use) - PO Not Given BID RYANN Senna 2 tab 12/10/18 22:00 12/13/18 21:17 Senna - PO 2 tab HS PRN Administration CONSTIPATION CBC, BMP 12/16/18 10:40 12/16/18 10:40 ASSESSMENT/PLAN: 83 year old female with a significant past medical history of COPD (trilogy machine), CHF, CAD/ID/cath, Afib (on eliquis), Afib, HTN, HLD, Type 2 DM who presents to the ED via EMS with dyspnea on exertion.was found ti have fever 101, HR 110 and RLB atelectasis admitted for HPNA . # Sepsis 2/2 PNA , resolving dry cough , RLB atelectsis , HR 110, Fever 101 on admission. Perales cx negative Abx start Cefepim and Vanco to cover HPNA as pt recently discharged from hospital , DC vanco , resume cefepime per ID(completed 6 days ) , switch to cefuroxin 500 BID for more 7 days , Penicillin allergy BIPAP as needed and over night # poly morpho NSVT monitor on tele increased lasix to 80 IV BID will benefit from TAVR , transfer to tertiary facility upon dc # Acute on chronic CHF S/D increase lasix IV push 80 BID daily due to worsening congestion on cxr and clinical exam daily weight , I& O Cardiology consulted Dr Benny gilalumai daily CXR in AM with bi basilar congestion LVEF 40 % # Mild hyperkalemia , resolved 4.3 repeat BMP no EKG changes # 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 # COPD cont Duoneb, Albuterol, Prednisone 10 mg po daily , BIPAP as needed # CAD/ID/ # AFIB on ELiquis 5 BID ,Toprol XL 25 po daily #HTN # HLD on Lipitor 40 daily # DM increase levemir to 15 # HYpothyroidism: cont Synthroid # GERD : PPi 40 daily #FEN F: DC fluids E: monitor lytes N:low NA diabetic diet # Proph : Dvts : On Eliquis # Dispo: monitor on tele PT evaluation walk 3 steps with shufling gait Visit type - Emergency Visit Emergency Visit: Yes ED Registration Date: 12/07/18 Care time: The patient presented to the Emergency Department on the above date and was hospitalized for further evaluation of their emergent condition. - New Patient This patient is new to me today: No - Critical Care Critical Care patient: No - Discharge Referral Referred to [facility] Med P.C.: No ATTENDING PHYSICIAN STATEMENT I saw and evaluated the patient. I reviewed the resident's note and discussed the case with the resident. I agree with the resident's findings and plan as documented. SUBJECTIVE: OBJECTIVE: ASSESSMENT AND PLAN:
[2018-12-16] MEDS: POLYETHYLENE GLYCOL 3350 119 GM BTL PO SCH ×2 (10:00→21:34)
[2018-12-16] MEDS ORDERED: PT OWN MED DRAWER 7, Y5N ONE (10:38)
--- NOTE | 2018-12-16 10:44 | PN ---
Teaching Attending Note Name of Resident: David Webster ATTENDING PHYSICIAN STATEMENT I saw and evaluated the patient. I reviewed the resident's note and discussed the case with the resident. I agree with the resident's findings and plan as documented with exceptions below. SUBJECTIVE: Patient seen and examined. breathing improved, no new complaints. OBJECTIVE: Vital Signs Period Temp Pulse Resp BP Sys/Gardner Pulse Ox Last 24 Hr 98.3 F-98.7 F 65-73 18-20 113-145/54-64 98-100 Intake & Output 12/13/18 12/14/18 12/15/18 12/16/18 23:59 23:59 23:59 23:59 Intake Total 270 900 420 960 Balance 270 900 420 960 Weight 204 lb 9.6 oz 202 lb 199 lb General: sitting in bed in no acute distress neck: soft, supple, improved neck vein distension Chest; improved basilar rales and air entry Abdomen:Soft, obese, NT Extremities: trace pedal edema Home Medications Medication Instructions Recorded Insulin Lispro [Humalog] 0 unit SQ TIDCM PRN 03/02/14 Apixaban [Eliquis -] 5 mg PO BID #60 tablet 06/09/17 Insulin (Levemir) [Levemir Vial] 15 unit SQ HS 07/16/17 Furosemide [Lasix] 40 mg PO DAILY #30 tablet 07/20/17 Levothyroxine [Synthroid -] 25 mcg PO DAILY 10/27/17 Atorvastatin Ca [Lipitor] 40 mg PO HS #30 tablet 11/04/17 Pantoprazole Sodium [Protonix -] 40 mg PO DAILY #30 tablet.ec 11/04/17 Metoprolol Succinate [Toprol XL -] 25 mg PO DAILY 10/21/18 Albuterol 0.083% Nebulizer Nel 1 amp NEB Q4H PRN 90 Days #6 box 10/28/18 [Ventolin 0.083% Nebulizer Soln -] Nebulizer and Compressor [Portable 1 each MC BID #1 each 10/28/18 Nebulizer System] Prednisone 10 mg PO DAILY 11/20/18 Active Medications Al Hydroxide/Mg Hydroxide (Mylanta Oral Suspension -) 30 ml PO Q6H PRN PRN Reason: DYSPEPSIA Last Admin: 12/13/18 17:25 Dose: 30 ml Apixaban (Eliquis -) 5 mg PO BID RYANN Last Admin: 12/15/18 22:02 Dose: 5 mg Atorvastatin Calcium (Lipitor -) 40 mg PO HS [facility] Last Admin: 12/15/18 22:02 Dose: 40 mg Cefuroxime Axetil (Ceftin -) 500 mg PO BID [facility] Stop: 12/17/18 10:01 Last Admin: 12/15/18 22:02 Dose: 500 mg Docusate Sodium (Colace -) 100 mg PO TID [facility] Last Admin: 12/16/18 06:05 Dose: Not Given Furosemide (Lasix Injection -) 80 mg IVPUSH BID@0600,1400 [facility] Last Admin: 12/16/18 05:57 Dose: Not Given Insulin Aspart (Novolog Vial Sliding Scale -) 1 vial SQ [facility]; Protocol Last Admin: 12/16/18 06:00 Dose: Not Given Insulin Detemir (Levemir Vial) 10 units SQ [facility] Last Admin: 12/15/18 22:03 Dose: 10 units Levothyroxine Sodium (Synthroid -) 25 mcg PO DAILY@0700 [facility] Last Admin: 12/16/18 06:08 Dose: 25 mcg Metoprolol Succinate (Toprol Xl -) 25 mg PO DAILY [facility] Last Admin: 12/15/18 11:48 Dose: 25 mg Pantoprazole Sodium (Protonix -) 40 mg PO DAILY [facility] Last Admin: 12/15/18 11:48 Dose: 40 mg Polyethylene Glycol (Miralax (For Daily Use) -) 17 gm PO BID [facility] Last Admin: 12/15/18 22:01 Dose: Not Given Senna (Senna -) 2 tab PO PRN PRN Reason: CONSTIPATION Last Admin: 12/13/18 21:17 Dose: 2 tab Laboratory Results - last 24 hr 12/15/18 12/15/18 12/15/18 05:42 12:00 17:58 Hypochromia 1+ Platelet Estimate Normal Polychromasia 0 Poikilocytosis 1+ Anisocytosis 1+ Microcytosis 1+ Macrocytosis 0 Target Cells 1+ Ovalocytes 1+ Acanthocytes (Spur) 1+ POC Glucometer 137 235 12/15/18 12/16/18 20:15 05:59 Hypochromia Platelet Estimate Polychromasia Poikilocytosis Anisocytosis Microcytosis Macrocytosis Target Cells Ovalocytes Acanthocytes (Spur) POC Glucometer 248 126 Microbiology 12/07/18 12:40 Blood - Peripheral Venous Blood Culture - Final NO GROWTH AFTER 5 DAYS INCUBATION 12/07/18 12:15 Blood - Peripheral Venous Blood Culture - Final NO GROWTH AFTER 5 DAYS INCUBATION 12/07/18 12:50 Urine - Urine - Catheterized Urine Culture - Final NO GROWTH OBTAINED 12/07/18 17:37 Urine For Antigen Detection Legionella Antigen - Final 12/07/18 17:37 Urine For Antigen Detection Streptococcus pneumoniae Antigen (M - Final CXR images and results reviewed, improved congestion and effusion ASSESSMENT AND PLAN: 83 yof with PMHx of COPD (on trilogy), CAD, chronic systolic heart failure, Afib on eliquis, HTN, HLD, type II DM, recurrent recent admissions with COPD/ CHF in 09/2018, then cardiogenic shock/CO/CHF, [place] [facility] [place] with non obstructive CAD/severe , admitted with dyspnea, dry cough. -Acute on chronic systolic heart failure exacerbation-Acute hypoxic/ hypercapneic respiratory failure -Acute RLL HCAP (r/o gm neg PNA) with sepsis -Metabolic alkalosis, suspect contraction alkalosis from lasix+respiratory compensation for chronic respiratory acidosis -Severe -Polymorphic NSVT -Afib on eliquis -HTN -HLD -Type II DM Plan: Volume status improving. repeat CXR. lasix 80 mg IV BId (s/p lasix 120 mg PO x1 this AM awaiting IV access) Bicarb rising, ABG noted. Monitor for now. Nighttime bipap. ?Polymorphic NSVT on 12/12, follow up with cardiology for additional intervention. Recurrent admissions with volume overload, recent cardiac cath [place] [facility] severe . Cardiology input noted, possible transfer [place] [facility] [place] consideration vs outpatient follow up based on clinical course. s/p cefepime,then cefuroxime. Finished 10 days of abx. ID input noted. Off prednisone taper from recent admit. Bipap prn. Continue eliquis/metoprolol/statin Levemir, ISS, diabetic diet. DVTPPX on eliquis OOB, PT eval Palliative care input to address overall goals of care pending cardiology input if candidate for intervention for severe . Discussed with nursing, patient and social work, all questions answered.
[2018-12-16] MEDS: CEFUROXIME AXETIL 500 MG TABLET PO SCH (10:48)
[2018-12-16] MEDS: metoPROLOL SUCCINATE 25 MG TAB.SR.24H (FP) PO SCH (10:49)
[2018-12-16] MEDS: PANTOPRAZOLE 40 MG TABLET (FP) PO SCH (10:49)
[2018-12-16] MEDS: APIXABAN 5 MG TABLET PO SCH ×2 (10:49→21:34)
--- NOTE | 2018-12-16 12:24 | PN ---
Progress Note (short form) - Note Progress Note: no cp, palps, dizziness, dyspnea Current Medications Al Hydroxide/Mg Hydroxide (Mylanta Oral Suspension -) 30 ml PO Q6H PRN PRN Reason: DYSPEPSIA Last Admin: 12/13/18 17:25 Dose: 30 ml Apixaban (Eliquis -) 5 mg PO BID [facility] Last Admin: 12/16/18 10:49 Dose: 5 mg Atorvastatin Calcium (Lipitor -) 40 mg PO HS [facility] Last Admin: 12/15/18 22:02 Dose: 40 mg Docusate Sodium (Colace -) 100 mg PO TID [facility] Last Admin: 12/16/18 06:05 Dose: Not Given Furosemide (Lasix Injection -) 80 mg IVPUSH BID@0600,1400 [facility] Last Admin: 12/16/18 05:57 Dose: Not Given Insulin Aspart (Novolog Vial Sliding Scale -) 1 vial SQ [facility]; Protocol Last Admin: 12/16/18 06:00 Dose: Not Given Insulin Detemir (Levemir Vial) 10 units SQ [facility] Last Admin: 12/15/18 22:03 Dose: 10 units Levothyroxine Sodium (Synthroid -) 25 mcg PO DAILY@0700 [facility] Last Admin: 12/16/18 06:08 Dose: 25 mcg Metoprolol Succinate (Toprol Xl -) 25 mg PO DAILY [facility] Last Admin: 12/16/18 10:49 Dose: 25 mg Pantoprazole Sodium (Protonix -) 40 mg PO DAILY [facility] Last Admin: 12/16/18 10:49 Dose: 40 mg Polyethylene Glycol (Miralax (For Daily Use) -) 17 gm PO BID [facility] Last Admin: 12/15/18 22:01 Dose: Not Given Senna (Senna -) 2 tab PO HS PRN PRN Reason: CONSTIPATION Last Admin: 12/13/18 21:17 Dose: 2 tab Vital Signs Period Temp Pulse Resp BP Sys/Gardner Pulse Ox Last 24 Hr 98.3 F-98.7 F 65-73 18-20 113-145/54-64 98-100 Constitutional: Yes: No Distress, Calm Eyes: No: Sclera Icterus HENT: No: Nasal Congestion Cardiovascular: Yes: Regular Rate and Rhythm (diminished sounds), Murmur (very soft LENNY rusb), S1, S2, Other (PMI non diplaced). No: JVD, Gallop Respiratory: Yes: CTA Bilaterally, Diminished (bases). No: Accessory Muscle Use , Rales, Wheezes Gastrointestinal: Yes: Normal Bowel Sounds, Soft. No: Tenderness Musculoskeletal: Yes: Other (No kyphosis) Extremities: No: Cold Edema: No Integumentary: No: Jaundice Neurological: Yes: Alert. No: Seizure Psychiatric: No: Agitated Assessment/Plan cath 11/22/18 LVEDP 28 mmHg (post nitro 20 mmHg). Mid QWC31-32% lesion; D1 ostial 70% lesion; mLAD and D1 stents are patent; ostial LCx 80-90% calcified lesion. No new significant lesion compared to the coronary angiogram done on 11/19/13. echo 11/21/18 [facility] [place] mild to mod LV dilation, moderately dec LV function EF 40%, hypokinesis of apical septum and apex, no thrombus with contrastr used, nl RV, severe peak V 2.5 m/s, peak/mean gradient 25/15 mmHg, USHA 0.69 cm2, DI 0.23, mild AR, mild MR CXR 12/09: congestive changes. bibasilar atx and fluid vs infiltrate tele: AF, PVCs A/P: 83 yr old lady with known CAD/pci, chf, HTN, HPL, DM, pad, obesity, pafib (dx when admitted for copd) here with shortness of breath due to acute on chronic combined systolic and diastolic CHF, ? PNA/a.e. copd PNA, a.e. copd - soft wheezing, observe on metoprolol - manage per primary, ID Elevated trop: - flat trend, indeterminate range, no ischemic changes - likely demand in setting of acute chf CAD: - s/p cath at [facility] 10/2018 with stable CAD: prior stents patent, obstructve LCX stenosis (SMALL vessel) and ostial D1 disease at bifurcation (? stent jailed)-- no intervention rec'd at that time. - awaiting review of cath films by interventional cardio re: ? revasc is feasible and rec'd, in light of ? PMVT (as disc'd below) - cont toprol, lipitor, eliquis Acute on chronic combined systolic and diastolic CHF: - EF 40% on most recent echo at [facility] - cont metoprolol - no SKYLER/ARB (K > 6 with junctional bradycardic arrest 11/13) - 12/11 increased Lasix to 40mg IV BID, inc to 80 mg IV BID on 12/14 for increased congestion on CXR - CXR 12/16 congestion improving - continue lasix 80 mg IV BID - lost IV access, received lasix 120 mg PO this AM. IV placement being attempted again this afternoon, if unable to obtain access would give torsemide 100 mg PO - monitor daily weights, Cr, lytes VTach: - 16 beat run on tele 12/12, ? polymorphic (not definitive). short run again after that, appears monomorphic - aggressive K/Mag repletion (>4/>2) - cont BB - per Dr. Zapata reviewed with EP: given possible PMVT appearance, recommends consideration of revascularization, possibly stress test to guide decisions Ao stenosis: - echo at [facility] with USHA 0.69 but gradients in low-moderate range. ? was felt to be low-output/low-gradient severe vs only moderate. - these gradients ? do not qualify for TAVR given questionable benefits - per Dr. Zapata: case d/w'd dr mccracken (interventional cardio [facility]), who reviewed 11/13 [facility] cath films and echo. no ischemia-producing coronary lesions that are technically feasible for revascularization, pt is a candidate for TAVR, which also may help EF improve. - continue diuresis, when patient closer to euvolemic will d/w family if willing to have repeat transfer to [facility] for inpatient TAVR eval (vs outpt eval reasonable if she has good clinical course here) AF: - sinus here - cont eliquis, toprol HLD - cont statin DM - manage per primary hypothyroidism - manage per primary HTN - bp reasonably controlled - cont home meds Anemia: -F/u H/H (close to recent baseline)
[2018-12-16 12:28] LABS: ALBUMIN 3.2 g/dl (3.4-5.0); ALK PHOS 70 U/L (45-117); ANION GAP 7 MMOL/L (8-16); BILIRUBIN,TOTAL 1.2 mg/dL (0.2-1); BLOOD UREA NITROGEN 27.8 mg/dL (7-18); CALCIUM 9.4 mg/dL (8.5-10.1); CHLORIDE 84 mmol/L (98-107); CO2 > 45 mmol/L (21-32); CREATININE 1.1 mg/dL (0.55-1.3); MAGNESIUM 2.2 mg/dL (1.8-2.4); PHOSPHOROUS 3.5 mg/dL (2.5-4.9); POTASSIUM 4.3 mmol/L (3.5-5.1); SGOT/AST 25 U/L (15-37); SGPT/ALT 17 U/L (13-61); SODIUM 136 mmol/L (136-145); TOT PROT 7.5 g/dl (6.4-8.2)
[2018-12-16 12:31] LABS: BASO % 0.4 % (0-2.0); EOS % 4.9 % (0-4.5); HEMATOCRIT 32.1 % (32.4-45.2); HEMOGLOBIN 9.7 GM/dL (10.7-15.3); LYMPH % 23.2 % (8-40); MCH 20.6 pg (25.7-33.7); MCHC 30.3 g/dl (32.0-36.0); MEAN CELL VOLUME 67.9 fl (80-96); MEAN PLT VOLUME 8.9 fl (7.5-11.1); MONO % 5.6 % (3.8-10.2); NEUT % 65.9 % (42.8-82.8); PLATELET COUNT 184 K/MM3 (134-434); RBC 4.72 M/mm3 (3.60-5.2); RDW 18.8 % (11.6-15.6); WHITE BLOOD COUNT 4.6 K/mm3 (4.0-10.0)
[2018-12-16 12:35] LABS: GLUCOSE,RANDOM 318 mg/dL (74-106)
[2018-12-16] MEDS ORDERED: INSULIN (NOVOLOG) ASPART 100 UNITS/ML 10ML VIAL ONE (21:23)
[2018-12-16] MEDS: INSULIN (LEVEMIR) 100 UNITS/ML UNITS SQ SCH (21:34)
[2018-12-16] MEDS: ATORVASTATIN CA 40 MG TABLET (FP) PO SCH (21:34)
[2018-12-16] MEDS ORDERED: ACETAMINOPHEN 325 MG TABLET (FP) PO ONE ×2 (21:49→21:56)
[2018-12-17] MEDS: FUROSEMIDE 40 MG/4 ML INJECTABLE VIAL IVPUSH SCH (06:17)
[2018-12-17] MEDS: DOCUSATE SODIUM 100 MG CAPSULE (FP) PO SCH ×3 (06:17→22:07)
[2018-12-17] MEDS: INSULIN SLIDING SCALE (NOVOLOG) 1 VIAL SQ SCH ×4 (06:23→22:08)
[2018-12-17] MEDS: LEVOTHYROXINE NA 25 MCG TABLET (FP) PO SCH (06:24)
[2018-12-17 07:58] LABS: BASO % 0.8 % (0-2.0); EOS % 6.1 % (0-4.5); MCH 20.5 pg (25.7-33.7); MCHC 31.1 g/dl (32.0-36.0); MEAN PLT VOLUME 8.3 fl (7.5-11.1); MONO % 7.7 % (3.8-10.2); NEUT % 44.4 % (42.8-82.8); PLATELET COUNT 179 K/MM3 (134-434); RBC 4.39 M/mm3 (3.60-5.2); RDW 18.8 % (11.6-15.6); WHITE BLOOD COUNT 4.4 K/mm3 (4.0-10.0)
[2018-12-17 08:01] LABS: ALBUMIN 3.1 g/dl (3.4-5.0); CALCIUM 9.3 mg/dL (8.5-10.1); MAGNESIUM 2.3 mg/dL (1.8-2.4); POTASSIUM 4.4 mmol/L (3.5-5.1)
[2018-12-17] MEDS: APIXABAN 5 MG TABLET PO SCH ×2 (09:42→22:07)
[2018-12-17] MEDS: PANTOPRAZOLE 40 MG TABLET (FP) PO SCH (09:42)
[2018-12-17] MEDS: metoPROLOL SUCCINATE 25 MG TAB.SR.24H (FP) PO SCH (09:42)
[2018-12-17] MEDS: POLYETHYLENE GLYCOL 3350 119 GM BTL PO SCH ×2 (10:00→22:08)
--- NOTE | 2018-12-17 12:06 | PN ---
Progress Note (short form) - Note Progress Note: s: no cp, palps, dizziness, dyspnea Current Medications Generic Name Dose Route Start Last Admin Trade Name Freq PRN Reason Stop Dose Admin Al Hydroxide/Mg Hydroxide 30 ml 12/12/18 13:38 12/13/18 17:25 Mylanta Oral Suspension - PO 30 ml Q6H PRN Administration DYSPEPSIA Apixaban 5 mg 12/07/18 22:00 12/17/18 09:42 Eliquis - PO 5 mg BID RYANN Administration Atorvastatin Calcium 40 mg 12/07/18 22:00 12/16/18 21:34 Lipitor - PO 40 mg HS RYANN Administration Docusate Sodium 100 mg 12/10/18 14:00 12/17/18 06:17 Colace - PO Not Given TID RYANN Insulin Aspart 1 vial 12/07/18 22:00 12/17/18 12:01 Novolog Vial Sliding Scale - SQ 8 units ACHS RYANN Administration Protocol Insulin Detemir 15 units 12/16/18 22:00 12/16/18 21:34 Levemir Vial SQ 15 units HS RYANN Administration Levothyroxine Sodium 25 mcg 12/08/18 07:00 12/17/18 06:24 Synthroid - PO 25 mcg DAILY@0700 RYANN Administration Metoprolol Succinate 25 mg 12/08/18 10:00 12/17/18 09:42 Toprol Xl - PO 25 mg DAILY RYANN Administration Pantoprazole Sodium 40 mg 12/08/18 10:00 12/17/18 09:42 Protonix - PO 40 mg DAILY RYANN Administration Polyethylene Glycol 17 gm 12/10/18 10:00 12/17/18 10:00 Miralax (For Daily Use) - PO Not Given BID RYANN Senna 2 tab 12/10/18 22:00 12/13/18 21:17 Senna - PO 2 tab HS PRN Administration CONSTIPATION Torsemide 100 mg 12/17/18 12:15 Demadex - PO DAILY [facility] Vital Signs Period Temp Pulse Resp BP Sys/Gardner Pulse Ox Last 24 Hr 97.8 F-98.7 F 60-88 20-20 101-136/51-88 95-100 Constitutional: Yes: No Distress, Calm Eyes: No: Sclera Icterus HENT: No: Nasal Congestion Cardiovascular: Yes: Regular Rate and Rhythm (diminished sounds), Murmur (very soft LENNY rusb), S1, S2, Other (PMI non diplaced). No: JVD, Gallop Respiratory: Yes: CTA Bilaterally, Diminished (bases). No: Accessory Muscle Use , Rales, Wheezes Gastrointestinal: Yes: Normal Bowel Sounds, Soft. No: Tenderness Musculoskeletal: Yes: Other (No kyphosis) Extremities: No: Cold Edema: No Integumentary: No: Jaundice Neurological: Yes: Alert. No: Seizure Psychiatric: No: Agitated 12/17/18 05:48 12/17/18 05:48 cath 11/22/18 LVEDP 28 mmHg (post nitro 20 mmHg). Mid BQU47-17% lesion; D1 ostial 70% lesion; mLAD and D1 stents are patent; ostial LCx 80-90% calcified lesion. No new significant lesion compared to the coronary angiogram done on 11/19/13. echo 11/21/18 [facility] [place] mild to mod LV dilation, moderately dec LV function EF 40%, hypokinesis of apical septum and apex, no thrombus with contrastr used, nl RV, severe peak V 2.5 m/s, peak/mean gradient 25/15 mmHg, USHA 0.69 cm2, DI 0.23, mild AR, mild MR CXR 12/09: congestive changes. bibasilar atx and fluid vs infiltrate tele: sr A/P: 83 yr old lady with known CAD/pci, chf, HTN, HPL, DM, pad, obesity, pafib (dx when admitted for copd) here with shortness of breath due to acute on chronic combined systolic and diastolic CHF, ? PNA/a.e. copd PNA, a.e. copd - soft wheezing, observe on metoprolol - manage per primary, ID Elevated trop: - flat trend, indeterminate range, no ischemic changes - likely demand in setting of acute chf CAD: - s/p cath at [facility] [place] 10/2018 with stable CAD: prior stents patent, obstructve LCX stenosis (SMALL vessel) and ostial D1 disease at bifurcation (? stent jailed)-- no intervention rec'd at that time. - cont toprol, lipitor, eliquis Acute on chronic combined systolic and diastolic CHF: - EF 40% on most recent echo at [facility] [place] - cont metoprolol - no SKYLER/ARB (K > 6 with junctional bradycardic arrest 11/13) - 12/11 increased Lasix to 40mg IV BID, inc to 80 mg IV BID on 12/14 for increased congestion on CXR - CXR 12/16 congestion improving - had been on lasix 80 mg IV BID but has lost iv access so got po lasix yesterday. Today will start torsemide 100 po qd. - monitor daily weights, Cr, lytes VTach: - 16 beat run on tele 12/12, ? polymorphic (not definitive). short run again after that, appears monomorphic - aggressive K/Mag repletion (>4/>2) - cont BB - per Dr. Zapata reviewed with EP: given possible PMVT appearance, recommends consideration of revascularization, possibly stress test to guide decisions Ao stenosis: - echo at [facility] with USHA 0.69 but gradients in low-moderate range. ? was felt to be low-output/low-gradient severe vs only moderate. - these gradients ? do not qualify for TAVR given questionable benefits - per Dr. Zapata: case d/w'd dr mccracken (interventional cardio [facility]), who reviewed 11/13 [facility] cath films and echo. no ischemia-producing coronary lesions that are technically feasible for revascularization, pt is a candidate for TAVR, which also may help EF improve. - continue diuresis, when patient closer to euvolemic will d/w family if willing to have repeat transfer to [facility] for inpatient TAVR eval (vs outpt eval reasonable if she has good clinical course here) AF: - sinus here - cont eliquis, toprol HLD - cont statin hypothyroidism - manage per primary HTN - bp reasonably controlled - cont home meds
--- NOTE | 2018-12-17 16:04 | PN ---
Physical Exam: SUBJECTIVE: Patient seen and examined. She complains of pain in her legs and heels. OBJECTIVE: Vital Signs Period Temp Pulse Resp BP Sys/Gardner Pulse Ox Last 24 Hr 97.8 F-98.7 F 60-88 20-20 119-136/51-88 95-100 GENERAL: The patient is awake, alert, and fully oriented, in no acute distress. LUNGS: Breath sounds equal, clear to auscultation bilaterally, no wheezes, no crackles, no accessory muscle use. HEART: Regular rate and rhythm, S1, S2 without murmur, rub or gallop. ABDOMEN: Obese, soft, nontender, nondistended, normoactive bowel sounds, no guarding, no rebound, no hepatosplenomegaly, no masses. EXTREMITIES: 2+ pulses, warm, well-perfused, trace edema. FROM both hips, both knees. Both heels unremarkable. Laboratory Results - last 24 hr 12/16/18 12/16/18 12/17/18 17:46 20:43 05:48 WBC 4.4 RBC 4.39 Hgb 9.0 L Hct 29.0 L MCV 66.0 L MCH 20.5 L MCHC 31.1 L RDW 18.8 H Plt Count 179 MPV 8.3 Absolute Neuts (auto) 1.9 Neutrophils % 44.4 D Lymphocytes % 41.0 H D Monocytes % 7.7 Eosinophils % 6.1 H Basophils % 0.8 Nucleated RBC % 0 Sodium Potassium Chloride Carbon Dioxide Anion Gap BUN Creatinine Est GFR (CKD-EPI)AfAm Est GFR (CKD-EPI)NonAf POC Glucometer 126 222 Random Glucose Calcium Phosphorus Magnesium Total Bilirubin AST ALT Alkaline Phosphatase Total Protein Albumin 12/17/18 12/17/18 12/17/18 05:48 06:19 11:34 WBC RBC Hgb Hct MCV MCH MCHC RDW Plt Count MPV Absolute Neuts (auto) Neutrophils % Lymphocytes % Monocytes % Eosinophils % Basophils % Nucleated RBC % Sodium 136 Potassium 4.4 Chloride 88 L Carbon Dioxide 45 H Anion Gap 3 L BUN 34.0 H Creatinine 1.0 Est GFR (CKD-EPI)AfAm 60.76 Est GFR (CKD-EPI)NonAf 52.42 POC Glucometer 138 313 Random Glucose 131 H Calcium 9.3 Phosphorus 4.0 Magnesium 2.3 Total Bilirubin 1.0 AST 27 ALT 17 Alkaline Phosphatase 61 Total Protein 7.0 Albumin 3.1 L Active Medications Generic Name Dose Route Start Last Admin Trade Name Freq PRN Reason Stop Dose Admin Al Hydroxide/Mg Hydroxide 30 ml 12/12/18 13:38 12/13/18 17:25 Mylanta Oral Suspension - PO 30 ml Q6H PRN Administration DYSPEPSIA Apixaban 5 mg 12/07/18 22:00 12/17/18 09:42 Eliquis - PO 5 mg BID RYANN Administration Atorvastatin Calcium 40 mg 12/07/18 22:00 12/16/18 21:34 Lipitor - PO 40 mg HS RYANN Administration Docusate Sodium 100 mg 12/10/18 14:00 12/17/18 15:39 Colace - PO Not Given TID RYANN Insulin Aspart 1 vial 12/07/18 22:00 12/17/18 12:01 Novolog Vial Sliding Scale - SQ 8 units ACHS RYANN Administration Protocol Insulin Detemir 15 units 12/16/18 22:00 12/16/18 21:34 Levemir Vial SQ 15 units HS RYANN Administration Levothyroxine Sodium 25 mcg 12/08/18 07:00 12/17/18 06:24 Synthroid - PO 25 mcg DAILY@0700 RYANN Administration Metoprolol Succinate 25 mg 12/08/18 10:00 12/17/18 09:42 Toprol Xl - PO 25 mg DAILY RYANN Administration Pantoprazole Sodium 40 mg 12/08/18 10:00 12/17/18 09:42 Protonix - PO 40 mg DAILY RYANN Administration Polyethylene Glycol 17 gm 12/10/18 10:00 12/17/18 10:00 Miralax (For Daily Use) - PO Not Given BID RYANN Senna 2 tab 12/10/18 22:00 12/13/18 21:17 Senna - PO 2 tab HS PRN Administration CONSTIPATION Torsemide 100 mg 12/17/18 12:15 Demadex - PO DAILY [facility] ASSESSMENT/PLAN: This is an 83 year old woman with a history of COPD, CAD, ME, severe , chronic systolic/diastolic heart failure, atrial fib, HTN, hyperlipidemia, type 2 DM, hypothyroidism who presented to the ED with SOB. 1. Acute hypoxic and hypercapnic respiratory failure 2. Acute on chronic systolic and diastolic heart failure 3. Sepsis secondary to healthcare associated pneumonia 4. NSVT 5. CAD, history of ME 6. History of atria fib 7. HTN 8. Hyperlipidemia 9. Severe aortic stenosis 10. Type 2 DM 11. COPD 12. Morbid obesity with BMI 40.1 Plan: Volume status improving. repeat CXR. lasix 80 mg IV BId (s/p lasix 120 mg PO x1 this AM awaiting IV access) Bicarb rising, ABG noted. Monitor for now. Nighttime bipap. ?Polymorphic NSVT on 12/12, follow up with cardiology for additional intervention. Recurrent admissions with volume overload, [place] [facility] [place] . Cardiology input noted, possible transfer [place] [facility] [place] vs outpatient follow up based on clinical course. s/p cefepime,then cefuroxime. Finished 10 days of abx. ID input noted. Off prednisone taper from recent admit. Bipap prn. Continue eliquis/metoprolol/statin Levemir, ISS, diabetic diet. DVTPPX on eliquis OOB, PT eval Palliative care input to address overall goals of care pending cardiology input if candidate for intervention for severe . Discussed with nursing, patient and social work, all questions answered.
[2018-12-17] MEDS: TORSEMIDE 100 MG TABLET PO SCH (17:25)
[2018-12-17] MEDS: ACETAMINOPHEN 325 MG TABLET (FP) PO PRN (18:30)
[2018-12-17] MEDS: ATORVASTATIN CA 40 MG TABLET (FP) PO SCH (22:07)
[2018-12-17] MEDS: INSULIN (LEVEMIR) 100 UNITS/ML UNITS SQ SCH (22:12)
[2018-12-18] MEDS: DOCUSATE SODIUM 100 MG CAPSULE (FP) PO SCH ×3 (06:51→21:59)
[2018-12-18] MEDS: LEVOTHYROXINE NA 25 MCG TABLET (FP) PO SCH (06:52)
[2018-12-18] MEDS: INSULIN SLIDING SCALE (NOVOLOG) 1 VIAL SQ SCH ×4 (06:52→21:58)
[2018-12-18 07:42] LABS: HEMATOCRIT 27.7 % (32.4-45.2); HEMOGLOBIN 8.7 GM/dL (10.7-15.3); MCH 20.7 pg (25.7-33.7); MCHC 31.4 g/dl (32.0-36.0); MEAN CELL VOLUME 65.8 fl (80-96); MEAN PLT VOLUME 8.4 fl (7.5-11.1); PLATELET COUNT 163 K/MM3 (134-434); RDW 18.3 % (11.6-15.6); WHITE BLOOD COUNT 3.8 K/mm3 (4.0-10.0)
[2018-12-18 08:27] LABS: BLOOD UREA NITROGEN 38.2 mg/dL (7-18); CALCIUM 9.3 mg/dL (8.5-10.1); MAGNESIUM 2.2 mg/dL (1.8-2.4); POTASSIUM 4.1 mmol/L (3.5-5.1)
[2018-12-18] MEDS: POLYETHYLENE GLYCOL 3350 119 GM BTL PO SCH ×3 (10:34→21:59)
[2018-12-18] MEDS: TORSEMIDE 100 MG TABLET PO SCH (10:34)
[2018-12-18] MEDS: PANTOPRAZOLE 40 MG TABLET (FP) PO SCH (10:34)
[2018-12-18] MEDS: APIXABAN 5 MG TABLET PO SCH ×2 (10:34→21:58)
[2018-12-18] MEDS: metoPROLOL SUCCINATE 25 MG TAB.SR.24H (FP) PO SCH (10:34)
--- NOTE | 2018-12-18 13:29 | PN ---
Progress Note (short form) - Note Progress Note: s: no cp, palps, dizziness, dyspnea Current Medications Generic Name Dose Route Start Last Admin Trade Name Freq PRN Reason Stop Dose Admin Acetaminophen 650 mg 12/17/18 17:49 12/17/18 18:30 Tylenol - PO 650 mg Q4H PRN Administration PAIN Al Hydroxide/Mg Hydroxide 30 ml 12/12/18 13:38 12/13/18 17:25 Mylanta Oral Suspension - PO 30 ml Q6H PRN Administration DYSPEPSIA Apixaban 5 mg 12/07/18 22:00 12/18/18 10:34 Eliquis - PO 5 mg BID RYANN Administration Atorvastatin Calcium 40 mg 12/07/18 22:00 12/17/18 22:07 Lipitor - PO 40 mg HS RYANN Administration Docusate Sodium 100 mg 12/10/18 14:00 12/18/18 06:51 Colace - PO Not Given TID RYANN Insulin Aspart 1 vial 12/07/18 22:00 12/18/18 12:04 Novolog Vial Sliding Scale - SQ 6 units ACHS RYANN Administration Protocol Insulin Detemir 15 units 12/16/18 22:00 12/17/18 22:12 Levemir Vial SQ 15 units HS RYANN Administration Levothyroxine Sodium 25 mcg 12/08/18 07:00 12/18/18 06:52 Synthroid - PO 25 mcg DAILY@0700 RYANN Administration Metoprolol Succinate 25 mg 12/08/18 10:00 12/18/18 10:34 Toprol Xl - PO 25 mg DAILY RYANN Administration Pantoprazole Sodium 40 mg 12/08/18 10:00 12/18/18 10:34 Protonix - PO 40 mg DAILY RYANN Administration Polyethylene Glycol 17 gm 12/10/18 10:00 12/18/18 10:38 Miralax (For Daily Use) - PO Not Given BID RYANN Senna 2 tab 12/10/18 22:00 12/13/18 21:17 Senna - PO 2 tab HS PRN Administration CONSTIPATION Torsemide 100 mg 12/17/18 12:15 12/18/18 10:34 Demadex - PO 100 mg DAILY RYANN Administration Vital Signs Period Temp Pulse Resp BP Sys/Gardner Pulse Ox Last 24 Hr 97.8 F-98.6 F 59-64 20-20 102-142/34-79 96-100 Constitutional: Yes: No Distress, Calm Eyes: No: Sclera Icterus HENT: No: Nasal Congestion Cardiovascular: Yes: Regular Rate and Rhythm (diminished sounds), Murmur (very soft LENNY rusb), S1, S2, Other (PMI non diplaced). No: JVD, Gallop Respiratory: Yes: CTA Bilaterally, Diminished (bases). No: Accessory Muscle Use , Rales, Wheezes Gastrointestinal: Yes: Normal Bowel Sounds, Soft. No: Tenderness Musculoskeletal: Yes: Other (No kyphosis) Extremities: No: Cold Edema: No Integumentary: No: Jaundice Neurological: Yes: Alert. No: Seizure Psychiatric: No: Agitated CBC, BMP 12/18/18 05:45 12/18/18 05:45 cath 11/22/18 LVEDP 28 mmHg (post nitro 20 mmHg). Mid [id number]% lesion; D1 ostial 70% lesion; mLAD and D1 stents are patent; ostial LCx 80-90% calcified lesion. No new significant lesion compared to the coronary angiogram done on 11/19/13. [place] [facility] [place] mod LV dilation, moderately dec LV function EF 40%, hypokinesis of apical septum and apex, no thrombus with contrastr used, nl RV, severe peak V 2.5 m/s, peak/mean gradient 25/15 mmHg, USHA 0.69 cm2, DI 0.23, mild AR, mild MR CXR 12/09: congestive changes. bibasilar atx and fluid vs infiltrate tele: sr A/P: 83 yr old lady with known CAD/pci, chf, HTN, HPL, DM, pad, obesity, pafib (dx when admitted for copd) here with shortness of breath due to acute on chronic combined systolic and diastolic CHF, ? PNA/a.e. copd PNA, a.e. copd - soft wheezing, observe on metoprolol - manage per primary, ID Elevated trop: - flat trend, indeterminate range, no ischemic changes - likely demand in setting of acute chf CAD: - s/[place] [facility] [place] with stable CAD: prior stents patent, obstructve LCX stenosis (SMALL vessel) and ostial D1 disease at bifurcation (? stent jailed)-- no intervention rec'd at that time. - cont toprol, lipitor, eliquis Acute on chronic combined systolic and diastolic CHF: - EF 40% on most recent [place] [facility] [place] - cont metoprolol - no SKYLER/ARB (K > 6 with junctional bradycardic arrest 11/13) - 12/11 increased Lasix to 40mg IV BID, inc to 80 mg IV BID on 12/14 for increased congestion on CXR - CXR 12/16 congestion improving - had been on lasix 80 mg IV BID but lost iv access so changed to po. Continue po torsemide 100 qd, volume stable. VTach: - 16 beat run on tele 12/12, ? polymorphic (not definitive). short run again after that, appears monomorphic - aggressive K/Mag repletion (>4/>2) - cont BB - per Dr. Zapata reviewed with EP: given possible PMVT appearance, recommends consideration of revascularization-->d/w interventionalist who reviewed 11/13 [facility] cath film-->no ischemia-producing coronary lesions that are technically feasible for revascularization Ao stenosis: - echo at [facility] with USHA 0.69 but gradients in low-moderate range. ? was felt to be low-output/low-gradient severe vs only moderate. - these gradients ? do not qualify for TAVR given questionable benefits - per Dr. Zapata: case d/w'd dr low (interventional cardio [facility]), who reviewed 11/13 [facility] cath films and echo. no ischemia-producing coronary lesions that are technically feasible for revascularization, pt is a candidate for TAVR, which also may help EF improve. -d/w daughter and pt and both are agreeable for inpt transfer to [facility] for tavr eval. Spoke with Dr Low at [facility] who accepted pt for transfer pending bed availability. AF: - sinus here - cont eliquis, toprol HLD - cont statin hypothyroidism - manage per primary HTN - bp reasonably controlled - cont home meds
--- NOTE | 2018-12-18 14:21 | PN ---
Physical Exam: SUBJECTIVE: Patient seen and examined OBJECTIVE: Vital Signs Period Temp Pulse Resp BP Sys/Gardner Pulse Ox Last 24 Hr 97.8 F-98.6 F 59-64 20-20 102-142/34-63 96-100 GENERAL: The patient is awake, alert, and fully oriented, in no acute distress. HEAD: Normal with no signs of trauma. EYES: PERRL, extraocular movements intact, sclera anicteric, conjunctiva clear. No ptosis. ENT: Ears normal, nares patent, oropharynx clear without exudates, moist mucous membranes. NECK: Trachea midline, full range of motion, supple. LUNGS: Breath sounds equal, clear to auscultation bilaterally, no wheezes, no crackles, no accessory muscle use. HEART: Regular rate and rhythm, S1, S2 without murmur, rub or gallop. ABDOMEN: Soft, nontender, nondistended, normoactive bowel sounds, no guarding, no rebound, no hepatosplenomegaly, no masses. EXTREMITIES: 2+ pulses, warm, well-perfused, no edema. NEUROLOGICAL: Cranial nerves II through XII grossly intact. Normal speech, gait not observed. PSYCH: Normal mood, normal affect. SKIN: Warm, dry, normal turgor, no rashes or lesions noted Laboratory Results - last 24 hr 12/17/18 12/17/18 12/18/18 17:09 22:06 05:45 WBC 3.8 L RBC 4.20 Hgb 8.7 L Hct 27.7 L MCV 65.8 L MCH 20.7 L MCHC 31.4 L RDW 18.3 H Plt Count 163 MPV 8.4 Sodium Potassium Chloride Carbon Dioxide Anion Gap BUN Creatinine Est GFR (CKD-EPI)AfAm Est GFR (CKD-EPI)NonAf POC Glucometer 117 230 Random Glucose Calcium Magnesium 12/18/18 12/18/18 12/18/18 05:45 06:05 11:07 WBC RBC Hgb Hct MCV MCH MCHC RDW Plt Count MPV Sodium 137 Potassium 4.1 Chloride 89 L Carbon Dioxide 44 H Anion Gap 4 L BUN 38.2 H Creatinine 1.0 Est GFR (CKD-EPI)AfAm 60.76 Est GFR (CKD-EPI)NonAf 52.42 POC Glucometer 172 285 Random Glucose 167 H Calcium 9.3 Magnesium 2.2 Active Medications Generic Name Dose Route Start Last Admin Trade Name Freq PRN Reason Stop Dose Admin Acetaminophen 650 mg 12/17/18 17:49 12/17/18 18:30 Tylenol - PO 650 mg Q4H PRN Administration PAIN Al Hydroxide/Mg Hydroxide 30 ml 12/12/18 13:38 12/13/18 17:25 Mylanta Oral Suspension - PO 30 ml Q6H PRN Administration DYSPEPSIA Apixaban 5 mg 12/07/18 22:00 12/18/18 10:34 Eliquis - PO 5 mg BID RYANN Administration Atorvastatin Calcium 40 mg 12/07/18 22:00 12/17/18 22:07 Lipitor - PO 40 mg HS RYANN Administration Docusate Sodium 100 mg 12/10/18 14:00 12/18/18 06:51 Colace - PO Not Given TID RYANN Insulin Aspart 1 vial 12/07/18 22:00 12/18/18 12:04 Novolog Vial Sliding Scale - SQ 6 units ACHS RYANN Administration Protocol Insulin Detemir 15 units 12/16/18 22:00 12/17/18 22:12 Levemir Vial SQ 15 units HS RYANN Administration Levothyroxine Sodium 25 mcg 12/08/18 07:00 12/18/18 06:52 Synthroid - PO 25 mcg DAILY@0700 RYANN Administration Metoprolol Succinate 25 mg 12/08/18 10:00 12/18/18 10:34 Toprol Xl - PO 25 mg DAILY RYANN Administration Pantoprazole Sodium 40 mg 12/08/18 10:00 12/18/18 10:34 Protonix - PO 40 mg DAILY RYANN Administration Polyethylene Glycol 17 gm 12/10/18 10:00 12/18/18 10:38 Miralax (For Daily Use) - PO Not Given BID RYANN Senna 2 tab 12/10/18 22:00 12/13/18 21:17 Senna - PO 2 tab HS PRN Administration CONSTIPATION Torsemide 100 mg 12/17/18 12:15 12/18/18 10:34 Demadex - PO 100 mg DAILY RYANN Administration ASSESSMENT/PLAN:
[2018-12-18] MEDS: ACETAMINOPHEN 325 MG TABLET (FP) PO PRN (17:25)
[2018-12-18] MEDS: ATORVASTATIN CA 40 MG TABLET (FP) PO SCH (21:58)
[2018-12-18] MEDS: INSULIN (LEVEMIR) 100 UNITS/ML UNITS SQ SCH (21:59)
[2018-12-19 02:09] VITALS: BP 126/94; PULSE 66; TEMP 97.6
[2018-12-19] MEDS: ACETAMINOPHEN 325 MG TABLET (FP) PO PRN (02:55)
--- NOTE | 2018-12-19 11:09 | DS ---
Physical Exam: SUBJECTIVE: Patient seen and examined OBJECTIVE: Vital Signs Period Temp Pulse Resp BP Sys/Gardner Pulse Ox Last 24 Hr 97.6 F-98.5 F 58-66 20-20 116-126/54-94 100 PHYSICAL EXAM GENERAL: The patient is awake, alert, and fully oriented, in no acute distress. HEAD: Normal with no signs of trauma. EYES: PERRL, extraocular movements intact, sclera anicteric, conjunctiva clear. ENT: Ears normal, nares patent, oropharynx clear without exudates, moist mucous membranes. NECK: Trachea midline, full range of motion, supple. LUNGS: Breath sounds equal, clear to auscultation bilaterally, no wheezes, no crackles, no accessory muscle use. HEART: Regular rate and rhythm, S1, S2 without murmur, rub or gallop. ABDOMEN: Soft, nontender, nondistended, normoactive bowel sounds, no guarding, no rebound, no hepatosplenomegaly, no masses. EXTREMITIES: 2+ pulses, warm, well-perfused, no edema. NEUROLOGICAL: Cranial nerves II through XII grossly intact. Normal speech, gait not observed. PSYCH: Normal mood, normal affect. SKIN: Warm, dry, normal turgor, no rashes or lesions noted. LABS Laboratory Results - last 24 hr 12/18/18 12/18/18 12/18/18 11:07 16:42 21:56 POC Glucometer 285 189 262 HOSPITAL COURSE: Date of Admission:12/07/18 Date of Discharge: 12/19/18 Minutes to complete discharge: 40 Discharge Summary Reason For Visit: SOB Condition: Stable - Instructions Disposition: TRANSFER ACUTE CARE/OTHER HOSP - Home Medications Comprehensive Discharge Medication List: Ambulatory Orders Insulin Lispro [Humalog] 0 unit SQ TIDCM PRN 03/02/14 Apixaban [Eliquis -] 5 mg PO BID #60 tablet 06/09/17 Insulin (Levemir) [Levemir Vial] 15 unit SQ HS 07/16/17 Furosemide [Lasix] 40 mg PO DAILY #30 tablet 07/20/17 Levothyroxine [Synthroid -] 25 mcg PO DAILY 10/27/17 Atorvastatin Ca [Lipitor] 40 mg PO HS #30 tablet 11/04/17 Pantoprazole Sodium [Protonix -] 40 mg PO DAILY #30 tablet.ec 11/04/17 Metoprolol Succinate [Toprol XL -] 25 mg PO DAILY 10/21/18 Albuterol 0.083% Nebulizer Nel [Ventolin 0.083% Nebulizer Soln -] 1 amp NEB Q4H PRN 90 Days #6 box 10/28/18 Nebulizer and Compressor [Portable Nebulizer System] 1 each MC BID #1 each 10/28 Prednisone 10 mg PO DAILY 11/20/18 - Discharge Referral Referred to [facility] No
== END 2018-12-19 03:39 | disposition short-term general hospital (02) | DRG 871 ==
LOC: JER 12:14 → JERBED 14:20 → J4W 20:22
PROVIDERS: ADMIT Internal Medicine; ATTEND Internal Medicine
DX: A41.9 Sepsis, unspecified organism (principal); J18.9 Pneumonia, unspecified organism; J96.01 Acute respiratory failure with hypoxia; J96.02 Acute respiratory failure with hypercapnia; I50.43 Acute on chronic combined systolic (congestive) and diastolic (congestive) heart failure; J98.11 Atelectasis; I47.2 Ventricular tachycardia; J44.1 Chronic obstructive pulmonary disease with (acute) exacerbation; E87.3 Alkalosis; E87.2 Acidosis; Z68.41 Body mass index [BMI] 40.0-44.9, adult; I24.8 Other forms of acute ischemic heart disease; R50.9 Fever, unspecified; I35.0 Nonrheumatic aortic (valve) stenosis; I25.10 Atherosclerotic heart disease of native coronary artery without angina pectoris; I25.2 Old myocardial infarction; E78.5 Hyperlipidemia, unspecified; E11.9 Type 2 diabetes mellitus without complications; I11.0 Hypertensive heart disease with heart failure; I48.0 Paroxysmal atrial fibrillation; D50.9 Iron deficiency anemia, unspecified; E87.5 Hyperkalemia; E03.9 Hypothyroidism, unspecified; K21.9 Gastro-esophageal reflux disease without esophagitis; E66.8 Other obesity; Z88.0 Allergy status to penicillin; Z95.5 Presence of coronary angioplasty implant and graft; Z79.4 Long term (current) use of insulin
CPT/HCPCS: 36415; 36600; 71045-TC-FY; 80048; 80053; 81003; 82375; 82550; 82803; 82962; 83050; 83605; 83735; 83880; 84100; 84484; 85025; 85027; 85610; 85730; 87040; 87086; 87899; 93005; 93010; 94010; 94640; 94660; 97116-GP; 97161-GP; 99285-25; J0131; J7030